=== PATIENT | female | born 1940 | race Caucasian/White ===

== ENCOUNTER 2021-03-25 10:38 | Emergency (ER) | payer MEDICARE, SELFPAY ==
[2021-03-25 10:53] VITALS: BP 122/72; PULSE 88; RESP 18; TEMP 36.6; O2SAT 96; BMI 25.0
--- NOTE | 2021-03-25 10:57 | ED.GENADULT ---
HPI - General Adult General Chief complaint: Weakness Stated complaint: dizzy/lightheaded Time Seen by Provider: 03/25/21 10:54 Source: patient and EMS Mode of arrival: EMS Limitations: no limitations History of Present Illness HPI narrative: bleeding varicose vein after scratching it - no AC therapy no ASA MD complaint: varicose vein bleed after scratching it sig bleeding then felt weak Onset (ago): minute(s) Location: left and lower extremity Radiation: non-radiation Severity: moderate Relieving factors: none Exacerbating factors: other (bleeding varicose vein) Associated symptoms: weakness (but feels better) Treatments prior to arrival: other (bandage) Related Data Allergies Allergy/AdvReac Type Severity Reaction Status Date / Time Unable to Assess Allergy Verified 03/25/21 10:54 Review of Systems Review of Systems: Constitutional : No Weight loss, No Fever, No Chills, No Fatigue, No Malaise ENT/Mouth : No sore throat, No Rhinorrhea Eyes: No Eye Pain, No Swelling, No Redness Cardiovascular : No Chest Pain, No SOB, No Dyspnea on Exertion, No Orthopnea, No Edema, No Palpitations Respiratory : No Cough, No Sputum, No Wheezing Gastrointestinal : No Nausea, No Vomiting, No Diarrhea, No Constipation, No abdominal Pain, No Hematochezia, No Melena Genitourinary : No Dysuria, No Urinary Frequency, No Hematuria, Musculoskeletal : No joint pain, No Myalgias, No Joint Swelling Skin : pos Skin Lesions, No rash Neuro : pos Weakness, No Numbness, No Dizziness, No Headache Psych : No Anxiety/Panic, No Depression Heme/Lymph: No Bruising, No Bleeding,No Lymphadenopathy Endocrine : No Polyuria, No Polydipsia All other systems reviewed and are negative [facility] Past Medical History Attestation statement: The following information was validated with the patient. Medical History Chronic back pain HTN (hypertension) Social History Social History Housing: House Patient Tobacco Use Status: Never used Tobacco Advance Directives: Yes Advance Directives Information Provided: No Advance Directives on File: No Physical Exam Vital Signs: Vital Signs: Last Vital Signs Temp 98 F 03/25/21 10:53 Pulse 88 03/25/21 10:53 Resp 18 03/25/21 10:53 BP 122/72 03/25/21 10:53 Pulse Ox 96 03/25/21 10:53 Body Mass Index 25.0 Appearance: Alert. Oriented X3. No acute distress. Eyes: Pupils equal, round and reactive to light. ENT: Pharynx normal. Neck: Normal inspection. Neck supple. CVS: Normal heart rate and rhythm. Pulses normal. Respiratory: No respiratory distress. Breath sounds normal. Abdomen: Soft and nontender. Skin: Skin warm and dry. Normal skin color. Normal skin turgor. Extremities: No lower extremity edema. L inner calf small dark clot noted medial calf - distal NV intact, no further bleeding no underlying hematoma felt - compartments are soft and compressible Neuro: Oriented X 3. No motor deficit. No sensory deficit. Course Course Course Narrative: [place] in H[place] [facility] [place] baseline hemogoblin 11.7 will transfuse 1 UPRBC signed out pending transfusion but anticipate DC home Medical Decision Making [facility] Narrative Medical decision making narrative: 80 yo female with hx of L varicose vein post bleeding after scratching it - no further bleeding distal NV intact, no AC therapy, at this time will observe obtain labs and repeat CBC as she felt weak after - feels much better now that she has been sitting and is able to drink juice. Dispo per results and findings. Lab Data Result diagrams: 03/25/21 13:56 03/25/21 11:11 Labs: Lab Results 03/25/21 03/25/21 03/25/21 Range/Units 11:11 11:11 13:56 WBC 6.1 7.4 (4.8-10.8) X10*3/uL RBC 2.81 L 2.70 L (4.20-5.50) X10*6/uL Hgb 9.2 L 8.7 L (12.0-16.0) g/dl Hct 27.2 L 25.7 L (37-47) % MCV 96.8 95.2 (80-98) fL MCH 32.7 32.2 (27.0-33.0) pg MCHC 33.8 33.9 (31.0-35.0) g/dl RDW 12.5 12.4 (11.0-16.0) % Plt Count 203 141 L D (160-400) X10*3/uL MPV 9.4 9.2 L (9.4-12.3) fL Immature Gran % (Auto) 0.3 (0.0-0.4) % Neut % (Auto) 76.1 H (45-73) % Lymph % (Auto) 13.6 L (20-40) % Morris % (Auto) 7.2 (2-11) % Eos % (Auto) 2.1 (0-4) % Baso % (Auto) 0.7 (0-2) % Lymph # (Auto) 0.8 L (1.2-4.9) X10*3/uL Morris # (Auto) 0.4 (0.1-1.2) X10*3/uL Eos # (Auto) 0.1 (0.0-0.4) X10*3/uL Baso # (Auto) 0.0 (0.0-0.2) X10*3/uL Abs Immat Gran (auto) 0.02 (0.00-0.03) X10*3/uL Absolute Neuts (auto) 4.7 (2.0-8.3) X10*3/uL Absolute Nucleated RBC 0.000 0.000 (0.0-0.012) X10*3/uL Nucleated RBC % (auto) 0.0 0.0 (0.0-0.2) /100WBC Smear Tech's Comments VERIFIED Sodium 133 L (135-145) mmol/L Potassium 3.8 (3.3-5.1) mmol/L Chloride 101 (96-108) mmol/L Carbon Dioxide 26 (22-29) mmol/L Anion Gap 10 L (12-20) BUN 16 (9-16) mg/dL Creatinine 0.63 (0.5-1.4) mg/dL Estim Creat Clear Calc 65.1 Estimated GFR > 60 Random Glucose 142 H (60-115) mg/dL Calcium 8.5 (8.4-10.2) mg/dL Discharge Plan Discharge Clinical Impression: Anemia, Bleeding from varicose vein Patient Disposition: Home, Self-Care Instructions: Anemia (ED), Blood Transfusion (DC) Additional Instructions: return to ED for any worsening symptoms or concerns change dressing daily, do not pick or scratch, keep covered and protected for 10 days Referrals: Thelma Obrien PA [Primary Care Provider] - 2 days (recheck cbc)
[2021-03-25 11:25] LABS: Eosinophils Absolute Auto 0.1 X10*3/uL (0.0-0.4); Eosinophils Percent Auto 2.1 % (0-4); MANUAL DIFF FLAG SCAN; Mean Corpuscular HGB Conc 33.8 g/dl (31.0-35.0); PLT CLUMP 1; Red Cell Distribution Width 12.5 % (11.0-16.0); SCAN SMEAR FLAG 1
[2021-03-25 11:27] LABS: Basophils Percent Auto 0.7 % (0-2); Hematocrit 27.2 % (37-47); Hemoglobin 9.2 g/dl (12.0-16.0); Imm Gran Abs Auto 0.02 X10*3/uL (0.00-0.03); Imm Gran Pct Auto 0.3 % (0.0-0.4); Lymphocytes Absolute Auto 0.8 X10*3/uL (1.2-4.9); Lymphocytes Percent Auto 13.6 % (20-40); Mean Corpuscular Hemoglobin 32.7 pg (27.0-33.0); Mean Corpuscular Volume 96.8 fL (80-98); Mean Platelet Volume 9.4 fL (9.4-12.3); Monocytes Absolute Auto 0.4 X10*3/uL (0.1-1.2); Monocytes Percent Auto 7.2 % (2-11); Neutrophils Absolute Auto 4.7 X10*3/uL (2.0-8.3); Neutrophils Percent Auto 76.1 % (45-73); Platelet Count 203 X10*3/uL (160-400); Red Blood Count 2.81 X10*6/uL (4.20-5.50); White Blood Count 6.1 X10*3/uL (4.8-10.8)
[2021-03-25 11:43] LABS: Anion Gap 10 (12-20); Blood Urea Nitrogen 16 mg/dL (9-16); Calcium 8.5 mg/dL (8.4-10.2); Carbon Dioxide 26 mmol/L (22-29); Chloride 101 mmol/L (96-108); Creatinine Clr Calc Pharmacy 65.1; Estimated Glomerular Filt Rate > 60; Glucose Random 142 mg/dL (60-115); Potassium 3.8 mmol/L (3.3-5.1); Sodium 133 mmol/L (135-145)
[2021-03-25 11:48] LABS: SLIDE REVIEW VERIFIED
[2021-03-25 14:01] LABS: Hematocrit 25.7 % (37-47); Hemoglobin 8.7 g/dl (12.0-16.0); Mean Corpuscular HGB Conc 33.9 g/dl (31.0-35.0); Mean Corpuscular Hemoglobin 32.2 pg (27.0-33.0); Mean Corpuscular Volume 95.2 fL (80-98); Mean Platelet Volume 9.2 fL (9.4-12.3); Platelet Count 141 X10*3/uL (160-400); Red Cell Distribution Width 12.4 % (11.0-16.0); White Blood Count 7.4 X10*3/uL (4.8-10.8)
[2021-03-25 15:12] VITALS: BP 156/61; PULSE 73; RESP 16; TEMP 36.6; O2SAT 99
[2021-03-25 16:48] VITALS: BP 146/52; PULSE 70; RESP 16; TEMP 36.6
[2021-03-25 16:53] VITALS: BP 146/52; PULSE 70; RESP 16; TEMP 36.6; O2SAT 100
[2021-03-25 17:04] VITALS: BP 135/55; PULSE 65; RESP 16; TEMP 36.6
[2021-03-25 18:25] VITALS: BP 142/66; PULSE 66; RESP 16; TEMP 36.6
== END 2021-03-25 18:28 | disposition home or self-care (01) ==
PROVIDERS: Emergency Provider Emergency Medicine; PCP Physician Assistant Medical
DX: R42 Dizziness and giddiness (principal); D64.9 Anemia, unspecified; I10 Essential (primary) hypertension; Z79.899 Other long term (current) drug therapy
CPT/HCPCS: 36415; 36430; 80048; 85025; 85027; 86850; 86900; 86901; 86923; 99284; 99285; P9016

== ENCOUNTER 2022-01-18 10:49 | Emergency (ER) | payer MEDICARE, SELFPAY ==
--- NOTE | ~2022-01-18 | CT_ITS ---
EXAMINATION: HEAD CT WITHOUT CONTRAST CERVICAL SPINE CT WITHOUT CONTRAST CLINICAL INFORMATION: Unwitnessed fall COMPARISON: None. TECHNIQUE: Contiguous axial imaging of the head was performed without the administration of IV contrast. Axial multidetector volumetric images were also performed through the cervical spine without contrast. Multiplanar reconstructed images in coronal and sagittal orientations were submitted. DOSE: 1027 mGy-cm FINDINGS: HEAD: There is no evidence of acute intracranial hemorrhage or edematous territorial infarction. No abnormal mass-effect or midline shift. No extra-axial fluid collections. Cruz to white matter differentiation is well preserved. Commensurate prominence of the ventricles and sulci is compatible with generalized parenchymal volume loss. There is periventricular and subcortical white matter hypoattenuation, most likely representing microangiopathic disease . Bilateral lens extraction. No acute calvarial fracture. The sinuses and mastoid air cells are clear. CERVICAL SPINE: Motion artifact degrading the upper spinal images. Craniocervical and atlantoaxial alignment is maintained. Vertebral body alignment is otherwise maintained. Instrumented ACDF hardware at C6-7. No evidence of hardware failure or all-hardware fracture. Partially imaged posterior spinal hardware at the cervical thoracic junction with metallic artifact. Vertebral body heights are maintained. No acute fractures identified. Cervical spondylosis, more prominent changes of moderate to severe disc degeneration at C4-5, C5-6, and T1-2, T2-3. Multilevel facet degeneration. No significant prevertebral soft tissue swelling. No suspicious thyroid findings. Lung apices are clear. CT/CT cervical spine wo con IMPRESSION: 1. No CT evidence of acute intracranial hemorrhage or edematous territorial infarction. 2. No CT evidence of acute fracture or malalignment in the cervical spine. 3. Status post ACDF at C6-7. Multilevel cervical spondyloarthropathy.
--- NOTE | 2022-01-18 10:58 | ED.FALL ---
HPI - Fall General Chief Complaint: Fall <LUIS A Muñoz Last Filed: 01/18/22 17:14> Stated Complaint: FALL,LLL SKIN TEAR PER EMS <LUIS A Muñoz - Last Filed: 01/18/22 17:14> Time Seen by Provider: 01/18/22 10:58 <LUIS A Muñoz - Last Filed: 01/18/22 17:14> Source: patient, EMS and old records reviewed <LUIS A Muñoz Last Filed: 01/18/22 17:14> Mode of arrival: EMS <LUIS A Muñoz Last Filed: 01/18/22 17:14> Limitations: no limitations <LUIS A Muñoz Last Filed: 01/18/22 17:14> History of Present Illness HPI Narrative: 9-year-old female with history of dementia presents to the ER for evaluation of a large skin tear in her left lower extremity after an unwitnessed fall at home. She is unsure what happened and is unable to tell me. She does state that she had the back of her head. She denies losing consciousness. She denies being on anticoagulation. She sustained a large skin tear to left lower extremity, no active bleeding on arrival. No other injuries. A few hours after patient's arrival to the ER her caregiver Meena presented to the ER in provided additional information. Meena states that family tried to call the patient this morning and there was no answer for a few hours. Her family detox her several times throughout the day on the phone. Meena went to go check on the patient and she was found on the floor with blood pooling around her left lower extremity wound. EMS was called. It is unknown when the patient fell down. <LUIS A Muñoz Last Filed: 01/18/22 17:14> MD complaint: fall <LUIS A Muñoz Last Filed: 01/18/22 17:14> Onset (ago): minute(s) <LUIS A Muñoz Last Filed: 01/18/22 17:14> Fall from: standing <LUIS A Muñoz Last Filed: 01/18/22 17:14> Fall witnessed: no <LUIS A Muñoz Last Filed: 01/18/22 17:14> Place fall occurred: home <LUIS A Muñoz - Last Filed: 01/18/22 17:14> Loss of consciousness: none <LUIS A Muñoz - Last Filed: 01/18/22 17:14> Prolonged down time: no <LUIS A Muñoz - Last Filed: 01/18/22 17:14> Symptoms prior to fall: none <LUIS A Muñoz - Last Filed: 01/18/22 17:14> Location of injury: head <LUIS A Muñoz - Last Filed: 01/18/22 17:14> Location of injury - extremities: left: lower leg (Large anterior skin tear) <LUIS A Muñoz - Last Filed: 01/18/22 17:14> Severity: moderate <LUIS A Muñoz - Last Filed: 01/18/22 17:14> Quality: aching <LUIS A Muñoz - Last Filed: 01/18/22 17:14> Associated symptoms (after fall): denies <LUIS A Muñoz - Last Filed: 01/18/22 17:14> Related Data Allergies/Adverse Reactions: Allergies Allergy/AdvReac Type Severity Reaction Status Date / Time Unable to Assess Allergy Verified 03/25/21 10:54 <LUIS A Muñoz - Last Filed: 01/18/22 17:14> Review of Systems Review of Systems: Constitutional: No Fever, No Chills ENT/Mouth: No sore throat, No Rhinorrhea, No Swallowing Difficulty Cardiovascular: No Chest Pain, No SOB, No Orthopnea, No Edema Respiratory: No Cough, No Sputum, No Wheezing, No dyspnea Gastrointestinal: No Nausea, No Vomiting, No Diarrhea, No abdominal Pain Genitourinary: No Dysuria, No Urinary Frequency, No Hematuria Musculoskeletal: No joint pain, No Myalgias Skin: + Skin Lesions, No rash Neuro: No Weakness, No Numbness, No Dizziness, No Headache Psych: No Anxiety/Panic, No Depression Heme/Lymph: + Bruising, No Lymphadenopathy Endocrine: No Polyuria, No Polydipsia <LUIS A Muñoz Last Filed: 01/18/22 17:14> [facility] Past Medical History Medical History: Medical History Chronic back pain HTN (hypertension) <LUIS A Muñoz - Last Filed: 01/18/22 17:14> Social History Social History: Social History Housing: House Patient Tobacco Use Status: Never used Tobacco Advance Directives: No Advance Directives Information Provided: Yes <LUIS A Muñoz - Last Filed: 01/18/22 17:14> Physical Exam Vital Signs: Vital Signs: Last Vital Signs Temp 97.9 F 01/18/22 20:38 Pulse 77 01/18/22 23:09 Resp 18 01/18/22 23:09 BP 124/48 L 01/18/22 23:09 Pulse Ox 98 01/18/22 23:09 O2 Del Method 01/18/22 23:09 BMI result Body Mass Index 22.1 <LUIS A Muñoz - Last Filed: 01/18/22 17:14> Vital Signs: Last Vital Signs Temp 97.9 F 01/18/22 20:38 Pulse 77 01/18/22 23:09 Resp 18 01/18/22 23:09 BP 124/48 L 01/18/22 23:09 Pulse Ox 98 01/18/22 23:09 O2 Del Method 01/18/22 23:09 BMI result Body Mass Index 22.1 <LUIS A Mcmillan - Last Filed: 01/18/22 23:57> Appearance: Alert. Oriented X1. No acute distress. Head: atraumatic, in cervical collar Eyes: Pupils equal, round and reactive to light. ENT: Pharynx normal. Neck: Normal inspection. Neck supple. CVS: Normal heart rate and rhythm. Pulses normal. Respiratory: No respiratory distress. Breath sounds normal. Abdomen: Soft and nontender. +BS x4 Skin: Skin warm and dry. Normal skin color. Normal skin turgor. No rashes. Extremities: left lower extremity with large anterior superficial skin tear starting below the left knee and extending down the anterior quintero Neuro: Oriented X 1. <LUIS A Muñoz - Last Filed: 01/18/22 17:14> Course Course Course Narrative: 81-year-old female with a history of dementia who presents to the ER after an unwitnessed fall at home, sustaining a large skin tear to left lower extremity. Unknown down time. Will get metabolic workup, CPK, COVID swab. Anticipate she will require short-term rehab placement given her injury and overall declining dementia. Not safe for discharge home alone. <LUIS A Muñoz Last Filed: 01/18/22 17:14> Reevaluation(s) Reevaluation #1: Labs are consistent with mild rhabdomyolysis, CK 600 range. She is tolerating p.o.. Will gently hydrate with 1 L of IV fluids. Labs otherwise unremarkable. At this time we will place patient physician observation and plan for physical therapy evaluation for possible short-term rehab. She lives at home and has caregivers coming to the home. She has underlying dementia and recognizes that this is getting worse. Physician observation started at 16:30. Patient placed in physician observation because patient is awaiting PT evaluation and Case management consult for possible placement to [facility]. At the time observation was started patient's vital signs were stable. Patient is alert and oriented x2. Neuro exam is non-focal. CV: RRR and lungs are clear. Will continue to monitor. <LUIS A Muñoz Last Filed: 01/18/22 17:14> Reevaluation #2: Patient's plan is to go to short-term rehab and then assisted living at the [facility] <LUIS A Mcmillan - Last Filed: 01/18/22 23:57> Time: 23:57 <LUIS A Mcmillan - Last Filed: 01/18/22 23:57> Procedures Laceration Laceration 1: Site: lower extremity <LUIS A Muñoz Last Filed: 01/18/22 17:14> Side (If applicable): left <LUIS A Muñoz Last Filed: 01/18/22 17:14> Size (cm): 20 <LUIS A Muñoz Last Filed: 01/18/22 17:14> Description: flap and irregular <LUIS A Muñoz Last Filed: 01/18/22 17:14> Depth: involves muscle layer (Visible subcu tissue proximally) <LUIS A Muñoz Last Filed: 01/18/22 17:14> Pre-repair: wound explored, irrigated extensively, deep structures intact and wound margins revised <LUIS A Muñoz - Last Filed: 01/18/22 17:14> Skin layer closed with: other (Skin tear flap rolled out carefully using sterile water in Q-tips, replaced over the bed of the wound.) <LUIS A Muñoz - Last Filed: 01/18/22 17:14> MDM - Fall Medical Records Attestation: I reviewed the patient's medical records. <LUIS A Muñoz - Last Filed: 01/18/22 17:14> Lab Data Attestation: I reviewed the patient's lab results. <LUIS A Muñoz - Last Filed: 01/18/22 17:14> Result diagrams: : 01/18/22 12:21 01/18/22 12:21 <LUIS A Muñoz - Last Filed: 01/18/22 17:14> Labs: Lab Results 01/18/22 01/18/22 01/18/22 Range/Units 12:21 12:21 12:21 WBC 8.0 (4.8-10.8) X10*3/uL RBC 3.01 L (4.20-5.50) X10*6/uL Hgb 9.8 L (12.0-16.0) g/dl Hct 28.5 L (37.0-47.0) % MCV 94.7 (80.0-98.0) fL MCH 32.6 (27.0-33.0) pg MCHC 34.4 (31.0-35.0) g/dl RDW 12.7 (11.0-16.0) % Plt Count 183 (160-400) X10*3/uL MPV 8.4 L (9.4-12.3) fL Immature Gran % (Auto) 0.3 (0.0-0.4) % Neut % (Auto) 77.6 H (45-73) % Lymph % (Auto) 11.9 L (20-40) % [place] % (Auto) 9.6 (2-11) % Eos % (Auto) 0.3 (0-4) % Baso % (Auto) 0.3 (0-2) % Lymph # (Auto) 1.0 L (1.2-4.9) X10*3/uL [place] # (Auto) 0.8 (0.1-1.2) X10*3/uL Eos # (Auto) 0.0 (0.0-0.4) X10*3/uL Baso # (Auto) 0.0 (0.0-0.2) X10*3/uL Abs Immat Gran (auto) 0.02 (0.00-0.03) X10*3/uL Absolute Neuts (auto) 6.2 (2.0-8.3) x10*3/uL Absolute Nucleated RBC 0.000 (0.0-0.012) X10*3/uL Nucleated RBC % (auto) 0.0 (0.0-0.2) /100WBC PT 11.2 (10.0-13.1) SEC INR 1.0 (0.9-1.1) APTT 28.5 (24.1-38.0) SEC Sodium 130 L (135-145) mmol/L Potassium 4.2 (3.3-5.1) mmol/L Chloride 99 (96-108) mmol/L Carbon Dioxide 26 (22-29) mmol/L Anion Gap 9 L (12-20) BUN 14 (9-16) mg/dL Creatinine 0.64 (0.5-1.4) mg/dL Estim Creat Clear Calc 60.5 Estimated GFR > 60 Random Glucose 100 (60-115) mg/dL Calcium 8.4 (8.4-10.2) mg/dL Magnesium 1.9 (1.6-2.6) mg/dL Total Bilirubin 0.6 (0.0-1.0) mg/dL Direct Bilirubin 0.3 (0.0-0.5) mg/dL AST 32 H (5-31) U/L ALT 23 (0-31) U/L Alkaline Phosphatase 56 (39-117) U/L Total Creatine Kinase 556 H (26-140) U/L Troponin I High Sens (<3.5-17.0) ng/L Total Protein 5.3 L (6.5-8.0) g/dL Albumin 3.6 (3.5-5.0) g/dL Urine Color Urine Appearance Urine pH (5.0-8.0) Ur Specific [place] (1.005-1.025) Urine Protein (NEG-TRACE) MG/DL Urine Glucose (UA) (NEG) MG/DL Urine Ketones (NEG) MG/DL Urine Blood (NEG) Urine Nitrite (NEG) Ur Leukocyte Esterase (NEG) Urine RBC (0) /HPF Urine WBC (0-4) /HPF Ur Squamous Epith Cells /LPF Urine Bacteria /LPF COVID-19 (TALIB) (Negative) COVID-19 Clin Com 01/18/22 01/18/22 01/18/22 Range/Units 12:21 12:21 12:21 WBC (4.8-10.8) X10*3/uL RBC (4.20-5.50) X10*6/uL Hgb (12.0-16.0) g/dl Hct (37.0-47.0) % MCV (80.0-98.0) fL MCH (27.0-33.0) pg MCHC (31.0-35.0) g/dl RDW (11.0-16.0) % Plt Count (160-400) X10*3/uL MPV (9.4-12.3) fL Immature Gran % (Auto) (0.0-0.4) % Neut % (Auto) (45-73) % Lymph % (Auto) (20-40) % [place] % (Auto) (2-11) % Eos % (Auto) (0-4) % Baso % (Auto) (0-2) % Lymph # (Auto) (1.2-4.9) X10*3/uL [place] # (Auto) (0.1-1.2) X10*3/uL Eos # (Auto) (0.0-0.4) X10*3/uL Baso # (Auto) (0.0-0.2) X10*3/uL Abs Immat Gran (auto) (0.00-0.03) X10*3/uL Absolute Neuts (auto) (2.0-8.3) x10*3/uL Absolute Nucleated RBC (0.0-0.012) X10*3/uL Nucleated RBC % (auto) (0.0-0.2) /100WBC PT (10.0-13.1) SEC INR (0.9-1.1) APTT (24.1-38.0) SEC Sodium (135-145) mmol/L Potassium (3.3-5.1) mmol/L Chloride (96-108) mmol/L Carbon Dioxide (22-29) mmol/L Anion Gap (12-20) BUN (9-16) mg/dL Creatinine (0.5-1.4) mg/dL Estim Creat Clear Calc Estimated GFR Random Glucose (60-115) mg/dL Calcium (8.4-10.2) mg/dL Magnesium (1.6-2.6) mg/dL Total Bilirubin (0.0-1.0) mg/dL Direct Bilirubin (0.0-0.5) mg/dL AST (5-31) U/L ALT (0-31) U/L Alkaline Phosphatase (39-117) U/L Total Creatine Kinase (26-140) U/L Troponin I High Sens 64.3 H* (<3.5-17.0) ng/L Total Protein (6.5-8.0) g/dL Albumin (3.5-5.0) g/dL Urine Color DK YELLOW Urine Appearance CLEAR Urine pH 7.5 (5.0-8.0) Ur Specific [place] 1.020 (1.005-1.025) Urine Protein TRACE (NEG-TRACE) MG/DL Urine Glucose (UA) NEG (NEG) MG/DL Urine Ketones NEG (NEG) MG/DL Urine Blood NEG (NEG) Urine Nitrite SEE NOTE (NEG) Ur Leukocyte Esterase SEE NOTE (NEG) Urine RBC 1-4 (0) /HPF Urine WBC 0-2 (0-4) /HPF Ur Squamous Epith Cells TRACE /LPF Urine Bacteria TRACE /LPF COVID-19 (TALIB) Negative (Negative) COVID-19 Clin Com See Note 01/18/22 01/18/22 Range/Units 15:47 15:47 WBC (4.8-10.8) X10*3/uL RBC (4.20-5.50) X10*6/uL Hgb (12.0-16.0) g/dl Hct (37.0-47.0) % MCV (80.0-98.0) fL MCH (27.0-33.0) pg MCHC (31.0-35.0) g/dl RDW (11.0-16.0) % Plt Count (160-400) X10*3/uL MPV (9.4-12.3) fL Immature Gran % (Auto) (0.0-0.4) % Neut % (Auto) (45-73) % Lymph % (Auto) (20-40) % [place] % (Auto) (2-11) % Eos % (Auto) (0-4) % Baso % (Auto) (0-2) % Lymph # (Auto) (1.2-4.9) X10*3/uL [place] # (Auto) (0.1-1.2) X10*3/uL Eos # (Auto) (0.0-0.4) X10*3/uL Baso # (Auto) (0.0-0.2) X10*3/uL Abs Immat Gran (auto) (0.00-0.03) X10*3/uL Absolute Neuts (auto) (2.0-8.3) x10*3/uL Absolute Nucleated RBC (0.0-0.012) X10*3/uL Nucleated RBC % (auto) (0.0-0.2) /100WBC PT (10.0-13.1) SEC INR (0.9-1.1) APTT (24.1-38.0) SEC Sodium (135-145) mmol/L Potassium (3.3-5.1) mmol/L Chloride (96-108) mmol/L Carbon Dioxide (22-29) mmol/L Anion Gap (12-20) BUN (9-16) mg/dL Creatinine (0.5-1.4) mg/dL Estim Creat Clear Calc Estimated GFR Random Glucose (60-115) mg/dL Calcium (8.4-10.2) mg/dL Magnesium (1.6-2.6) mg/dL Total Bilirubin (0.0-1.0) mg/dL Direct Bilirubin (0.0-0.5) mg/dL AST (5-31) U/L ALT (0-31) U/L Alkaline Phosphatase (39-117) U/L Total Creatine Kinase 631 H (26-140) U/L Troponin I High Sens 63.6 H* (<3.5-17.0) ng/L Total Protein (6.5-8.0) g/dL Albumin (3.5-5.0) g/dL Urine Color Urine Appearance Urine pH (5.0-8.0) Ur Specific [place] (1.005-1.025) Urine Protein (NEG-TRACE) MG/DL Urine Glucose (UA) (NEG) MG/DL Urine Ketones (NEG) MG/DL Urine Blood (NEG) Urine Nitrite (NEG) Ur Leukocyte Esterase (NEG) Urine RBC (0) /HPF Urine WBC (0-4) /HPF Ur Squamous Epith Cells /LPF Urine Bacteria /LPF COVID-19 (TALIB) (Negative) COVID-19 Clin Com <LUIS A Muñoz - Last Filed: 01/18/22 17:14> Lab Results 01/18/22 01/18/22 01/18/22 Range/Units 12:21 12:21 12:21 WBC 8.0 (4.8-10.8) X10*3/uL RBC 3.01 L (4.20-5.50) X10*6/uL Hgb 9.8 L (12.0-16.0) g/dl Hct 28.5 L (37.0-47.0) % MCV 94.7 (80.0-98.0) fL MCH 32.6 (27.0-33.0) pg MCHC 34.4 (31.0-35.0) g/dl RDW 12.7 (11.0-16.0) % Plt Count 183 (160-400) X10*3/uL MPV 8.4 L (9.4-12.3) fL Immature Gran % (Auto) 0.3 (0.0-0.4) % Neut % (Auto) 77.6 H (45-73) % Lymph % (Auto) 11.9 L (20-40) % [place] % (Auto) 9.6 (2-11) % Eos % (Auto) 0.3 (0-4) % Baso % (Auto) 0.3 (0-2) % Lymph # (Auto) 1.0 L (1.2-4.9) X10*3/uL [place] # (Auto) 0.8 (0.1-1.2) X10*3/uL Eos # (Auto) 0.0 (0.0-0.4) X10*3/uL Baso # (Auto) 0.0 (0.0-0.2) X10*3/uL Abs Immat Gran (auto) 0.02 (0.00-0.03) X10*3/uL Absolute Neuts (auto) 6.2 (2.0-8.3) x10*3/uL Absolute Nucleated RBC 0.000 (0.0-0.012) X10*3/uL Nucleated RBC % (auto) 0.0 (0.0-0.2) /100WBC PT 11.2 (10.0-13.1) SEC INR 1.0 (0.9-1.1) APTT 28.5 (24.1-38.0) SEC Sodium 130 L (135-145) mmol/L Potassium 4.2 (3.3-5.1) mmol/L Chloride 99 (96-108) mmol/L Carbon Dioxide 26 (22-29) mmol/L Anion Gap 9 L (12-20) BUN 14 (9-16) mg/dL Creatinine 0.64 (0.5-1.4) mg/dL Estim Creat Clear Calc 60.5 Estimated GFR > 60 Random Glucose 100 (60-115) mg/dL Calcium 8.4 (8.4-10.2) mg/dL Magnesium 1.9 (1.6-2.6) mg/dL Total Bilirubin 0.6 (0.0-1.0) mg/dL Direct Bilirubin 0.3 (0.0-0.5) mg/dL AST 32 H (5-31) U/L ALT 23 (0-31) U/L Alkaline Phosphatase 56 (39-117) U/L Total Creatine Kinase 556 H (26-140) U/L Troponin I High Sens (<3.5-17.0) ng/L Total Protein 5.3 L (6.5-8.0) g/dL Albumin 3.6 (3.5-5.0) g/dL Urine Color Urine Appearance Urine pH (5.0-8.0) Ur Specific [place] (1.005-1.025) Urine Protein (NEG-TRACE) MG/DL Urine Glucose (UA) (NEG) MG/DL Urine Ketones (NEG) MG/DL Urine Blood (NEG) Urine Nitrite (NEG) Ur Leukocyte Esterase (NEG) Urine RBC (0) /HPF Urine WBC (0-4) /HPF Ur Squamous Epith Cells /LPF Urine Bacteria /LPF COVID-19 (TALIB) (Negative) COVID-19 Clin Com 01/18/22 01/18/22 01/18/22 Range/Units 12:21 12:21 12:21 WBC (4.8-10.8) X10*3/uL RBC (4.20-5.50) X10*6/uL Hgb (12.0-16.0) g/dl Hct (37.0-47.0) % MCV (80.0-98.0) fL MCH (27.0-33.0) pg MCHC (31.0-35.0) g/dl RDW (11.0-16.0) % Plt Count (160-400) X10*3/uL MPV (9.4-12.3) fL Immature Gran % (Auto) (0.0-0.4) % Neut % (Auto) (45-73) % Lymph % (Auto) (20-40) % [place] % (Auto) (2-11) % Eos % (Auto) (0-4) % Baso % (Auto) (0-2) % Lymph # (Auto) (1.2-4.9) X10*3/uL [place] # (Auto) (0.1-1.2) X10*3/uL Eos # (Auto) (0.0-0.4) X10*3/uL Baso # (Auto) (0.0-0.2) X10*3/uL Abs Immat Gran (auto) (0.00-0.03) X10*3/uL Absolute Neuts (auto) (2.0-8.3) x10*3/uL Absolute Nucleated RBC (0.0-0.012) X10*3/uL Nucleated RBC % (auto) (0.0-0.2) /100WBC PT (10.0-13.1) SEC INR (0.9-1.1) APTT (24.1-38.0) SEC Sodium (135-145) mmol/L Potassium (3.3-5.1) mmol/L Chloride (96-108) mmol/L Carbon Dioxide (22-29) mmol/L Anion Gap (12-20) BUN (9-16) mg/dL Creatinine (0.5-1.4) mg/dL Estim Creat Clear Calc Estimated GFR Random Glucose (60-115) mg/dL Calcium (8.4-10.2) mg/dL Magnesium (1.6-2.6) mg/dL Total Bilirubin (0.0-1.0) mg/dL Direct Bilirubin (0.0-0.5) mg/dL AST (5-31) U/L ALT (0-31) U/L Alkaline Phosphatase (39-117) U/L Total Creatine Kinase (26-140) U/L Troponin I High Sens 64.3 H* (<3.5-17.0) ng/L Total Protein (6.5-8.0) g/dL Albumin (3.5-5.0) g/dL Urine Color DK YELLOW Urine Appearance CLEAR Urine pH 7.5 (5.0-8.0) Ur Specific [place] 1.020 (1.005-1.025) Urine Protein TRACE (NEG-TRACE) MG/DL Urine Glucose (UA) NEG (NEG) MG/DL Urine Ketones NEG (NEG) MG/DL Urine Blood NEG (NEG) Urine Nitrite SEE NOTE (NEG) Ur Leukocyte Esterase SEE NOTE (NEG) Urine RBC 1-4 (0) /HPF Urine WBC 0-2 (0-4) /HPF Ur Squamous Epith Cells TRACE /LPF Urine Bacteria TRACE /LPF COVID-19 (TALIB) Negative (Negative) COVID-19 Clin Com See Note 01/18/22 01/18/22 Range/Units 15:47 15:47 WBC (4.8-10.8) X10*3/uL RBC (4.20-5.50) X10*6/uL Hgb (12.0-16.0) g/dl Hct (37.0-47.0) % MCV (80.0-98.0) fL MCH (27.0-33.0) pg MCHC (31.0-35.0) g/dl RDW (11.0-16.0) % Plt Count (160-400) X10*3/uL MPV (9.4-12.3) fL Immature Gran % (Auto) (0.0-0.4) % Neut % (Auto) (45-73) % Lymph % (Auto) (20-40) % [place] % (Auto) (2-11) % Eos % (Auto) (0-4) % Baso % (Auto) (0-2) % Lymph # (Auto) (1.2-4.9) X10*3/uL [place] # (Auto) (0.1-1.2) X10*3/uL Eos # (Auto) (0.0-0.4) X10*3/uL Baso # (Auto) (0.0-0.2) X10*3/uL Abs Immat Gran (auto) (0.00-0.03) X10*3/uL Absolute Neuts (auto) (2.0-8.3) x10*3/uL Absolute Nucleated RBC (0.0-0.012) X10*3/uL Nucleated RBC % (auto) (0.0-0.2) /100WBC PT (10.0-13.1) SEC INR (0.9-1.1) APTT (24.1-38.0) SEC Sodium (135-145) mmol/L Potassium (3.3-5.1) mmol/L Chloride (96-108) mmol/L Carbon Dioxide (22-29) mmol/L Anion Gap (12-20) BUN (9-16) mg/dL Creatinine (0.5-1.4) mg/dL Estim Creat Clear Calc Estimated GFR Random Glucose (60-115) mg/dL Calcium (8.4-10.2) mg/dL Magnesium (1.6-2.6) mg/dL Total Bilirubin (0.0-1.0) mg/dL Direct Bilirubin (0.0-0.5) mg/dL AST (5-31) U/L ALT (0-31) U/L Alkaline Phosphatase (39-117) U/L Total Creatine Kinase 631 H (26-140) U/L Troponin I High Sens 63.6 H* (<3.5-17.0) ng/L Total Protein (6.5-8.0) g/dL Albumin (3.5-5.0) g/dL Urine Color Urine Appearance Urine pH (5.0-8.0) Ur Specific [place] (1.005-1.025) Urine Protein (NEG-TRACE) MG/DL Urine Glucose (UA) (NEG) MG/DL Urine Ketones (NEG) MG/DL Urine Blood (NEG) Urine Nitrite (NEG) Ur Leukocyte Esterase (NEG) Urine RBC (0) /HPF Urine WBC (0-4) /HPF Ur Squamous Epith Cells /LPF Urine Bacteria /LPF COVID-19 (TALIB) (Negative) COVID-19 Clin Com <LUIS A Mcmillan - Last Filed: 01/18/22 23:57> Imaging Data CT scan - head: Radiologist's impression: [place] [id number] CT Scan Report Signed Patient: Mackenzie Briones MR#: [id number] : 1940 Acct:[id number] Age/Sex: 81 / F ADM Date: 01/18/22 Loc: HO.ED Attending Dr: Ordering Physician: Lizbeth Tadeo Date of Service: 01/18/22 Procedure(s): CT head/brain wo con Accession Number(s): [id number] cc: Lizbeth Tadeo~ EXAMINATION: HEAD CT WITHOUT CONTRAST CERVICAL SPINE CT WITHOUT CONTRAST CLINICAL INFORMATION: Unwitnessed fall COMPARISON: None. TECHNIQUE: Contiguous axial imaging of the head was performed without the administration of IV contrast. Axial multidetector volumetric images were also performed through the cervical spine without contrast. Multiplanar reconstructed images in coronal and sagittal orientations were submitted. DOSE: 1027 mGy-cm FINDINGS: HEAD: There is no evidence of acute intracranial hemorrhage or edematous territorial infarction. No abnormal mass-effect or midline shift. No extra-axial fluid collections.? Cruz to white matter differentiation is well preserved. Commensurate prominence of the ventricles and sulci is compatible with generalized parenchymal volume loss. There is periventricular and subcortical white matter hypoattenuation, most likely representing microangiopathic disease . Bilateral lens extraction. No acute calvarial fracture. The sinuses and mastoid air cells are clear. CERVICAL SPINE: Motion artifact degrading the upper spinal images. Craniocervical and atlantoaxial alignment is maintained. Vertebral body alignment is otherwise maintained. Instrumented ACDF hardware at C6-7. No evidence of hardware failure or all-hardware fracture. Partially imaged posterior spinal hardware at the cervical thoracic junction with metallic artifact. Vertebral body heights are maintained. No acute fractures identified. Cervical spondylosis, more prominent changes of moderate to severe disc degeneration at C4-5, C5-6, and T1-2, T2-3. Multilevel facet degeneration. No significant prevertebral soft tissue swelling. No suspicious thyroid findings. Lung apices are clear. CT/CT head/brain wo con IMPRESSION: 1. No CT evidence of acute intracranial hemorrhage or edematous territorial infarction. 2. No CT evidence of acute fracture or malalignment in the cervical spine. 3. Status post ACDF at C6-7. Multilevel cervical spondyloarthropathy. Dictated By: Maxwell Turner MD <LUIS A Muñoz - Last Filed: 01/18/22 17:14> CT - Cervical spine: Radiologist's impression: Ordering Physician: Lizbeth Tadeo Date of Service: 01/18/22 Procedure(s): CT cervical spine wo con Accession Number(s): [id number] cc: Lizbeth Tadeo~ EXAMINATION: HEAD CT WITHOUT CONTRAST CERVICAL SPINE CT WITHOUT CONTRAST CLINICAL INFORMATION: Unwitnessed fall COMPARISON: None. TECHNIQUE: Contiguous axial imaging of the head was performed without the administration of IV contrast. Axial multidetector volumetric images were also performed through the cervical spine without contrast. Multiplanar reconstructed images in coronal and sagittal orientations were submitted. DOSE: 1027 mGy-cm FINDINGS: HEAD: There is no evidence of acute intracranial hemorrhage or edematous territorial infarction. No abnormal mass-effect or midline shift. No extra-axial fluid collections.? Cruz to white matter differentiation is well preserved. Commensurate prominence of the ventricles and sulci is compatible with generalized parenchymal volume loss. There is periventricular and subcortical white matter hypoattenuation, most likely representing microangiopathic disease . Bilateral lens extraction. No acute calvarial fracture. The sinuses and mastoid air cells are clear. CERVICAL SPINE: Motion artifact degrading the upper spinal images. Craniocervical and atlantoaxial alignment is maintained. Vertebral body alignment is otherwise maintained. Instrumented ACDF hardware at C6-7. No evidence of hardware failure or all-hardware fracture. Partially imaged posterior spinal hardware at the cervical thoracic junction with metallic artifact. Vertebral body heights are maintained. No acute fractures identified. Cervical spondylosis, more prominent changes of moderate to severe disc degeneration at C4-5, C5-6, and T1-2, T2-3. Multilevel facet degeneration. No significant prevertebral soft tissue swelling. No suspicious thyroid findings. Lung apices are clear. CT/CT cervical spine wo con IMPRESSION: 1. No CT evidence of acute intracranial hemorrhage or edematous territorial infarction. 2. No CT evidence of acute fracture or malalignment in the cervical spine. 3. Status post ACDF at C6-7. Multilevel cervical spondyloarthropathy. Dictated By: Maxwell Turner MD <LUIS A Muñoz - Last Filed: 01/18/22 17:14> Discharge Plan Discharge Clinical Impression: Noninfected skin tear of left leg, Rhabdomyolysis <LUIS A Muñoz - Last Filed: 01/18/22 17:14> Patient Disposition: Still a Patient <LUIS A Muñoz - Last Filed: 01/18/22 17:14> Referrals: [facility] [place] W[facility] Care [Outside] - 2 days (Large left lower extremity skin tear) <LUIS A Muñoz - Last Filed: 01/18/22 17:14>
[2022-01-18 11:14] VITALS: BP 109/70; BP 139/63; PULSE 74; PULSE 81; RESP 18; O2SAT 98; BMI 22.1
--- NOTE | 2022-01-18 11:40 | ECG_ITS ---
Test Reason : fall Blood Pressure : / mmHG Vent. Rate : 070 BPM Atrial Rate : 070 BPM P-R Int : 168 ms QRS Dur : 080 ms QT Int : 400 ms P-R-T Axes : 077 011 039 degrees QTc Int : 432 ms Normal sinus rhythm Normal ECG No previous ECGs available Referred By: Lizbeth Tadeo Electronically Signed By:CHARLEY DENNIS MD
[2022-01-18 12:34] LABS: MANUAL DIFF FLAG NO
[2022-01-18 12:37] LABS: Appearance Urine CLEAR; Basophils Percent Auto 0.3 % (0-2); Color Urine DK YELLOW; Eosinophils Percent Auto 0.3 % (0-4); Glucose Urine UA NEG (NEG); Hematocrit 28.5 % (37.0-47.0); Hemoglobin 9.8 g/dl (12.0-16.0); Imm Gran Abs Auto 0.02 X10*3/uL (0.00-0.03); Imm Gran Pct Auto 0.3 % (0.0-0.4); Lymphocytes Percent Auto 11.9 % (20-40); Mean Corpuscular HGB Conc 34.4 g/dl (31.0-35.0); Mean Corpuscular Hemoglobin 32.6 pg (27.0-33.0); Mean Corpuscular Volume 94.7 fL (80.0-98.0); Mean Platelet Volume 8.4 fL (9.4-12.3); Monocytes Absolute Auto 0.8 X10*3/uL (0.1-1.2); Monocytes Percent Auto 9.6 % (2-11); Neutrophils Absolute Auto 6.2 x10*3/uL (2.0-8.3); Neutrophils Percent Auto 77.6 % (45-73); PH 7.5 (5.0-8.0); Platelet Count 183 X10*3/uL (160-400); Red Blood Count 3.01 X10*6/uL (4.20-5.50); Red Cell Distribution Width 12.7 % (11.0-16.0); UACC Culture Trigger YES; Urine Blood NEG (NEG); Urine Ketones NEG (NEG); Urine Protein TRACE MG/DL (NEG-TRACE)
[2022-01-18 12:43] LABS: Prothrombin Time 11.2 SEC (10.0-13.1)
[2022-01-18 12:45] LABS: Partial Thromboplastin Time 28.5 SEC (24.1-38.0)
[2022-01-18 12:48] LABS: Bacteria Urine TRACE /LPF; Squamous Epithelial Cell Urine TRACE /LPF
[2022-01-18 12:49] LABS: WBC Urine 0-2 /HPF (0-4)
[2022-01-18] MEDS: Acetaminophen 325 MG TABLET 975 MG PO (12:50)
[2022-01-18 12:57] LABS: COVID-19 Test Negative (Negative)
[2022-01-18 13:04] LABS: Alanine Aminotransferase 23 U/L (0-31); Albumin Level 3.6 g/dL (3.5-5.0); Alkaline Phosphatase 56 U/L (39-117); Anion Gap 9 (12-20); Aspartate Amino Transferase 32 U/L (5-31); Bilirubin Direct 0.3 mg/dL (0.0-0.5); Bilirubin Total 0.6 mg/dL (0.0-1.0); Blood Urea Nitrogen 14 mg/dL (9-16); Calcium 8.4 mg/dL (8.4-10.2); Carbon Dioxide 26 mmol/L (22-29); Chloride 99 mmol/L (96-108); Creatinine Clr Calc Pharmacy 60.5; Estimated Glomerular Filt Rate > 60; Glucose Random 100 mg/dL (60-115); Magnesium 1.9 mg/dL (1.6-2.6); Potassium 4.2 mmol/L (3.3-5.1); Sodium 130 mmol/L (135-145); Total Protein 5.3 g/dL (6.5-8.0)
[2022-01-18 13:06] LABS: Troponin-I High Sensitivity 64.3 ng/L (<3.5-17.0)
[2022-01-18 14:55] VITALS: BP 109/70; PULSE 81; O2SAT 98
[2022-01-18 15:42] VITALS: BP 159/61; PULSE 72; RESP 18; TEMP 36.6; O2SAT 97
[2022-01-18 16:32] LABS: Troponin-I High Sensitivity 63.6 ng/L (<3.5-17.0)
[2022-01-18] MEDS: 0.9 % Sodium Chloride 1,000 ML 999 ML IVCONT (18:06)
--- NOTE | 2022-01-18 18:10 | PC.NURSE ---
Pt states she fell out of bed, was found in morning by her friend. unwitnessed, unknown downtime or LOC. C collar placed by EMS. Pt has dementia at baseline. Alert, oriented to person and place at this time. Large skin tear to LLE, cleaned and dressed by Annalisa CARPENTER. Plan for PT eval and CM for possible placement. Call griffith placed within reach, will continue to monitor.
[2022-01-18 19:42] VITALS: BP 156/59; PULSE 96; RESP 16; TEMP 36.5; O2SAT 97
[2022-01-18 20:38] VITALS: BP 136/58; PULSE 74; RESP 16; TEMP 36.6; O2SAT 98
--- NOTE | 2022-01-18 20:58 | PC.NURSE ---
pt assisted with bedpan, pt provided perineal care & linen change
--- NOTE | 2022-01-18 22:46 | MHC.CM.ED ---
Met with patient and daughter, Martha Milton ([phone]). 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 Pt is sl confused, being treated for a UTI and had a fall with large skin tear. Currently on Bactrim BID. Pt has an apartment secured at [facility] for assisted living and was to sign paper tomorrow 01/19. She will have 1 hour [employer] TECH and 3 meals a day. PT is recommending STR. Family and patient are requesting [facility]. Family has a connection with the facility and will call in the morning. Referral placed in [facility]. Pt and daughter are hopeful that [facility] will have a bed and then she will transition to assisted living. Pt is vax/boosted/[employer]. HCP/daughter #1 Socorro Jimenez, but she is in [place] and Martha usually care for her mother, as she is the daughter who lives locally. Martha will bring in the HCP 01/19. Pt uses a walker. CM will follow for d/c needs.
[2022-01-18 23:09] VITALS: BP 124/48; PULSE 77; RESP 18; O2SAT 98
[2022-01-19 00:46] VITALS: RESP 18
[2022-01-19 03:10] VITALS: BP 149/61; PULSE 83; RESP 18; O2SAT 98
--- NOTE | 2022-01-19 03:32 | PC.NURSE ---
pt moved into hospital bed. resting comfortably at this time.
--- NOTE | 2022-01-19 04:26 | PC.NURSE ---
pt transferred over to hospital bed
[2022-01-19 05:15] VITALS: PULSE 85; RESP 18; O2SAT 98
[2022-01-19 05:46] VITALS: BP 152/70; PULSE 75; RESP 18; O2SAT 98
--- NOTE | 2022-01-19 10:08 | MHC.CM.ED ---
Patient remains in ER. [facility] Continue to monitor for d/c needs.
[2022-01-19] MEDS: Metoprolol Succinate ER 25 MG TAB.ER.24H PO (10:17)
[2022-01-19] MEDS: Losartan Potassium 50 MG TABLET 100 MG PO (10:17)
[2022-01-19] MEDS: Sulfamethox/Trimeth 800/160 TABLET 1 TAB PO (10:19)
[2022-01-19 11:12] VITALS: BP 99/48; PULSE 82; RESP 16; TEMP 36.7; O2SAT 98
--- NOTE | 2022-01-19 12:18 | PHA.MEDREC ---
Pharmacy Consult ? Medication Reconciliation Pharmacy has completed the medication reconciliation. spoke with pt and verified directions of ankur with pharmacy
== END 2022-01-19 15:09 ==
PROVIDERS: Physician Assistant; Emergency Provider Emergency Medicine; PCP Physician Assistant Medical
DX: S81.812A Laceration without foreign body, left lower leg, initial encounter (principal); F03.90 Unspecified dementia, unspecified severity, without behavioral disturbance, psychotic disturbance, mood disturbance, and anxiety; M54.2 Cervicalgia; M62.82 Rhabdomyolysis; R51.9 Headache, unspecified; R26.9 Unspecified abnormalities of gait and mobility; W01.0XXA Fall on same level from slipping, tripping and stumbling without subsequent striking against object, initial encounter; Y93.9 Activity, unspecified; Y92.009 Unspecified place in unspecified non-institutional (private) residence as the place of occurrence of the external cause; Y99.9 Unspecified external cause status; Z20.822 Contact with and (suspected) exposure to COVID-19; Z79.899 Other long term (current) drug therapy
CPT/HCPCS: 13121; 13122; 36415; 70450; 72125; 80048; 80076; 81001; 82550; 83735; 84484; 85025; 85610; 85730; 87086; 87635; 93005; 96360; 97162; 99285

== ENCOUNTER 2022-02-01 14:15 | Outpatient (RCR) | payer MEDICARE, SELFPAY | END 2022-03-16 09:14 | disposition home or self-care (01) | LOC: HO.WCC 14:15 | PROVIDERS: PCP Physician Assistant Medical; Visit Provider Surgery | DX: S81.812D Laceration without foreign body, left lower leg, subsequent encounter (principal); I10 Essential (primary) hypertension; Z79.2 Long term (current) use of antibiotics; Z79.899 Other long term (current) drug therapy | CPT/HCPCS: 11042; 11045; 99212; 99213 ==

== ENCOUNTER 2022-03-01 12:29 | Outpatient (REF) | payer MEDICARE, SELFPAY ==
--- NOTE | ~2022-03-01 | US_ITS ---
EXAMINATION: US VENOUS ULTRASOUND WITH DOPPLER LOWER EXTREMITY, LEFT CLINICAL INFORMATION: Pain, swelling and redness COMPARISON: None TECHNIQUE: Ultrasound of the deep veins is performed from the hip to the calf with compression sonography and color and pulse Doppler assessment. Spectral analysis with color-flow imaging is performed. FINDINGS: There is normal venous compression and respiratory variation and augmented flow. The visualized common femoral vein, superficial femoral vein, profunda femoral vein, popliteal vein, and the trifurcation region shows no evidence of deep venous thrombosis. There is no significant popliteal fossa cyst. US/US venous duplex LE LT IMPRESSION: No DVT demonstrated in the left lower extremity.
== END 2022-03-01 12:30 | disposition home or self-care (01) ==
LOC: HO.US 12:29
PROVIDERS: PCP Physician Assistant Medical; Visit Provider Surgery
DX: I83.12 Varicose veins of left lower extremity with inflammation (principal)
CPT/HCPCS: 93971

== ENCOUNTER 2022-03-11 12:45 | Observation (INO) | payer MEDICARE, SELFPAY ==
--- NOTE | ~2022-03-11 | CT_ITS ---
EXAMINATION: CT HEAD WITHOUT CONTRAST CLINICAL INFORMATION: Altered mental status. COMPARISON: 01/18/[address] scan. TECHNIQUE: Contiguous axial imaging was performed from the skull base to vertex without intravenous administration of contrast. Coronal and sagittal reformatted images were obtained. This CT examination was performed using dose optimization techniques as appropriate, variously including the following: *Automated exposure control *Adjustment of mA and/or kV according to patient size (this includes techniques or standardized protocols for targeted exams where dose is matched to indication/reason for exam; i.e. extremities or head) *Use of iterative reconstruction technique DLP: 678 mGy-cm FINDINGS: There is mild widening of the cortical sulci and associated ventriculomegaly. The lateral ventricles are symmetrical. Mild periventricular microvascular changes. The third and fourth ventricles are in their normal midline position. The basilar and prepontine cisterns are unremarkable. There is no acute intra or extracerebral abnormality. There is no mass effect or midline shift. Sections through the bony calvarium are unremarkable. The orbits are intact. The paranasal sinuses are clear. The mastoid air cells are clear. CT/CT head/brain wo IV con IMPRESSION: No acute intracranial pathology.
--- NOTE | ~2022-03-11 | XR_ITS ---
EXAMINATION: XR CHEST CLINICAL INFORMATION: Acute mental status change COMPARISON: None TECHNIQUE: Frontal view of the chest was obtained. FINDINGS: The cardiac and mediastinal contours are normal. The lungs are clear. There is blunting of the left lateral costophrenic angle suggestive of small left pleural effusion or pleural thickening. There is no right pleural effusion. There is no pneumothorax. There are old bilateral fractures. There are rods in the thoracic spine. There are postsurgical changes to the lower cervical spine. XR/XR chest 1V IMPRESSION: Blunting at the left lateral costophrenic angle questionable for pleural thickening or small left pleural effusion. Otherwise unremarkable exam.
--- NOTE | ~2022-03-11 | CT_ITS ---
EXAMINATION: CT CERVICAL SPINE WITHOUT CONTRAST CLINICAL INFORMATION: Fall COMPARISON: Previous cervical spine x-ray from January 2022 TECHNIQUE: Axial images through the cervical spine without contrast. Sagittal and coronal reconstructions on the technologist workstation were performed. This CT examination was performed using dose optimization techniques as appropriate, variously including the following: *Automated exposure control *Adjustment of mA and/or kV according to patient size (this includes techniques or standardized protocols for targeted exams where dose is matched to indication/reason for exam; i.e. extremities or head) *Use of iterative reconstruction technique DLP: 332 mGy-cm FINDINGS: Bone alignment is normal. No fracture or dislocation is seen. There is previous surgery/ACDF at C6-C7.. Hardware appears unchanged. There is bony ankylosis at the knee 5 6 disc space. There is degenerative spondylosis and degenerative disc disease at C4-C5 and C7-T1. There are degenerative changes at the C1 dens articulation. There is bilateral multilevel facet arthritis. There is a well-corticated soft tissue ossification adjacent to the C5 spinous process likely related to old trauma. Prevertebral soft tissues are normal. The visualized lung apices are clear. There are rods in the visualized proximal thoracic spine. CT/CT cervical spine wo IV con IMPRESSION: No fracture or dislocation. Stable postsurgical at C6-C7 and degenerative changes. Fleischner guidelines were followed.
[2022-03-11 14:06] VITALS: BP 153/75; PULSE 95; RESP 20; TEMP 36.6; O2SAT 100; BMI 20.9
--- NOTE | 2022-03-11 14:10 | ECG_ITS ---
Test Reason : AMS Blood Pressure : / mmHG Vent. Rate : 076 BPM Atrial Rate : 076 BPM P-R Int : 182 ms QRS Dur : 076 ms QT Int : 352 ms P-R-T Axes : 063 -01 023 degrees QTc Int : 396 ms Normal sinus rhythm with sinus arrhythmia Possible Inferior infarct , age undetermined Cannot rule out Anterior infarct , age undetermined Abnormal ECG When compared with ECG of 18-JAN-2022 12:00, No significant change was found Referred By: Generic ED Physician Electronically Signed By:ORIANA HANNAH
[2022-03-11 14:32] LABS: MANUAL DIFF FLAG NO
[2022-03-11 14:36] LABS: Basophils Percent Auto 0.7 % (0-2); Eosinophils Absolute Auto 0.1 X10*3/uL (0.0-0.4); Eosinophils Percent Auto 1.7 % (0-4); Hematocrit 31.3 % (37.0-47.0); Hemoglobin 10.1 g/dl (12.0-16.0); Imm Gran Abs Auto 0.02 X10*3/uL (0.00-0.03); Imm Gran Pct Auto 0.4 % (0.0-0.4); Lymphocytes Absolute Auto 1.4 X10*3/uL (1.2-4.9); Lymphocytes Percent Auto 25.8 % (20-40); Mean Corpuscular HGB Conc 32.3 g/dl (31.0-35.0); Mean Corpuscular Hemoglobin 31.3 pg (27.0-33.0); Mean Corpuscular Volume 96.9 fL (80.0-98.0); Mean Platelet Volume 8.2 fL (9.4-12.3); Monocytes Absolute Auto 0.6 X10*3/uL (0.1-1.2); Monocytes Percent Auto 11.6 % (2-11); Neutrophils Absolute Auto 3.2 x10*3/uL (2.0-8.3); Neutrophils Percent Auto 59.8 % (45-73); Platelet Count 268 X10*3/uL (160-400); Red Blood Count 3.23 X10*6/uL (4.20-5.50); White Blood Count 5.4 X10*3/uL (4.8-10.8)
[2022-03-11 14:45] LABS: Anion Gap 14 (12-20); Blood Urea Nitrogen 11 mg/dL (9-16); Calcium 8.7 mg/dL (8.4-10.2); Carbon Dioxide 28 mmol/L (22-29); Chloride 100 mmol/L (96-108); Creatinine Clr Calc Pharmacy 55.3; Estimated Glomerular Filt Rate > 60; Glucose Random 98 mg/dL (60-115); Potassium 4.6 mmol/L (3.3-5.1); Sodium 137 mmol/L (135-145)
[2022-03-11 14:47] LABS: COVID-19 Test Negative (Negative)
[2022-03-11 15:47] VITALS: BP 199/76; PULSE 81; RESP 16; TEMP 36.6; O2SAT 97
[2022-03-11 16:35] LABS: Alanine Aminotransferase 20 U/L (0-31); Alkaline Phosphatase 98 U/L (39-117); Aspartate Amino Transferase 22 U/L (5-31); Bilirubin Direct < 0.2 mg/dL (0.0-0.5); Bilirubin Total 0.3 mg/dL (0.0-1.0); Lipase 31 U/L (8-78); Magnesium 2.2 mg/dL (1.6-2.6); Total Protein 6.3 g/dL (6.5-8.0)
--- NOTE | 2022-03-11 16:47 | ED_ITS ---
HPI - Altered Mental Status General Chief Complaint: Altered Mental Status Stated Complaint: increased confusion, fall x2 Time Seen by Provider: 03/11/22 15:36 Source: patient, family and EMS Mode of arrival: EMS History of Present Illness HPI narrative: 81-year-old female with a past medical history of dementia, HTN, presenting to the ED via EMS for increased confusion per family since Saturday. Daughter reports patient has been at [facility] assisted living with multiple falls over the past few days and not at baseline. Also reports bilateral lower extremity swelling/weeping. Unknown head trauma or LOC. reports patient A&O x3 at baseline, with forgetfulness, usually ambulates steadily with walker. Patient denies any complaints at present MD complaint: confusion Onset (ago): day(s) Related Data Home Medications Medication Instructions Recorded Confirmed losartan 100 mg tablet 1 tab PO DAILY 01/19/22 01/19/22 metoprolol succinate 25 mg 1 tab PO DAILY 01/19/22 01/19/22 tablet,extended release 24 hr mirabegron 50 mg tablet,extended 1 tab PO DAILY 01/19/22 01/19/22 release 24 hr (Myrbetriq) multivitamin 1 tab PO DAILY 01/19/22 01/19/22 cephalexin 500 mg capsule 1 cap PO QID 03/11/22 gabapentin 300 mg capsule 1 cap PO DAILY 03/11/22 Allergies Allergy/AdvReac Type Severity Reaction Status Date / Time Unable to Assess Allergy Verified 03/25/21 10:54 Review of Systems Review of Systems: Constitutional: No Fever, No Chills, No Fatigue, No Malaise ENT/Mouth: No Ear Pain, No Nasal Congestion, No sore throat, No Rhinorrhea, No Swallowing Difficulty Eyes: No Eye Pain, No Swelling, No Redness, No Vision Changes Cardiovascular: No Chest Pain, No SOB, + Edema, No Palpitations Respiratory: No Cough, No Sputum, No Dyspnea Gastrointestinal: No Nausea, No Vomiting, No Diarrhea, No Constipation, No Abdominal pain Genitourinary: No Dysuria, No Urinary Frequency, No Hematuria Musculoskeletal: No joint pain, No Myalgias, No Joint Swelling Skin: No Skin Lesions, No rash Neuro: +AMS, No Weakness, No Dizziness, No Headache Yes all other systems are reviewed and are negative Constitutional: Constitutional: Reports as per HPI Neurologic: Denies Abnormal speech present PMFSH Past Medical History Attestation statement: The following information was validated with the patient. Medical History (Updated 03/11/22 @ 20:32 by LUIS A Crandall) Chronic back pain Dementia HTN (hypertension) Squamous cell skin cancer Surgical History (Updated 03/11/22 @ 20:15 by Juan Carlos Mack MD) H/O Spinal surgery H/O: hysterectomy Family History Family History (Updated 03/11/22 @ 20:15 by Juan Carlos Mack MD) Mother Breast cancer Social History Social History Housing: House Patient Tobacco Use Status: Never used Tobacco Advance Directives: No Advance Directives Information Provided: No Physical Exam ED Vital Signs: Vital Signs - 24 hr 03/11/22 14:06 03/11/22 15:47 03/11/22 19:08 Temperature 98 F 97.9 F 98 F Pulse Rate 95 81 90 Respiratory Rate 20 16 18 Blood Pressure 153/75 H 199/76 H 180/79 H Pulse Oximetry 100 97 98 Oxygen Delivery Method Room Air Room Air Room Air BMI result Body Mass Index 20.9 Const General: cooperative, healthy appearing and no acute distress Orientation/consciousness: oriented to person and oriented to place Limitations: no limitations HENMT Head: Yes normal to inspection, Yes atraumatic, No Faulkner's sign and No raccoon eyes Ears: hearing grossly normal bilaterally General nose exam: Normal external nose present Face and sinus: Yes normal facial exam Eyes General: appearance normal, both eyes and all related structures Pupils: Equal, round and reactive pupils present EOM: EOMs intact bilaterally Neck Neck: Yes normal visual inspection and Yes no meningeal signs Chest Chest palpation & inspection: normal inspection of the chest Resp Effort & Inspection: normal respiratory effort and no respiratory distress Auscultation: clear to auscultation bilaterally, no rales, no rhonchi and no wheezes Cardio Rate: regular rate Heart sounds: S1 normal heart sound present and S2 normal heart sound present GI Inspection: Yes normal to inspection Palpation (GI): Soft to palpation, nontender, no guarding and not rigid General: Yes no CVA tenderness Back/Spine/Pelvis Back: no CVA tenderness Skin Rashes: no rashes Wounds: no wounds Neuro General: oriented to person, oriented to place, tone normal, moves all extremit ies, no meningeal signs, no focal motor deficits and CN's II-XI intact bilaterally Cranial nerves: Yes CN's II-XII intact bilaterally and Yes Equal, round and reactive pupils present Speech: No Abnormal speech present Motor exam (neuro): 5/5 motor strength present throughout and no tremor noted Extrem Other: + chronic bilateral lower extremity venous stasis changes with mild edema. Small skin tear noted to RLE. No active weeping appreciated Course Course Course Narrative: -1657--no leukocytosis. H/H at patient's baseline. Labs otherwise reassuring XR chest 1V IMPRESSION: Blunting at the left lateral costophrenic angle questionable for pleural thickening or small left pleural effusion. Otherwise unremarkable exam. ? CT cervical spine wo IV con IMPRESSION: No fracture or dislocation. Stable postsurgical at C6-C7 and degenerative changes. ? CT head/brain wo IV con IMPRESSION: No acute intracranial pathology. -1740-BNP, ammonia, and CPK WNL -1844--UA negative. Workup unremarkable, patient appears paranoid, agitated, nonsensical. Will add psych consult for ? Dementia with psychotic features, although this is new. CRP added. Case discussed with Dr. Reynolds, low suspicion for meningitis/encephalitis without fever/leukocytosis. Will admit for further management -2029--CPK WNL. Patient admitted to hospitalist service MDM - Altered Mental Status MDM Narrative Medical decision making narrative: 81-year-old female with a past medical history of dementia, HTN, presenting to the ED via EMS for increased confusion per family since Saturday. On exam vital signs stable, afebrile, A&O x2, no focal deficits, no evidence of trauma. Physical exam as above. Concern for encephalopathy vs metabolic/infectious etiologies vs CHF. Rule out ICH. Plan: EKG, labs, UA, CXR, head/C-spine CT, re-evaluate Differential Diagnosis Differential diagnosis: Likely delirium, dementia, encephalopathy and sepsis Medical Records Attestation: I reviewed the patient's medical records. Lab Data Attestation: I reviewed the patient's lab results. Result diagrams: 03/11/22 14:27 03/11/22 14:27 Labs: Lab Results 03/11/22 03/11/22 03/11/22 Range/Units 14:11 14:27 14:27 WBC 5.4 (4.8-10.8) X10*3/uL RBC 3.23 L (4.20-5.50) X10*6/uL Hgb 10.1 L (12.0-16.0) g/dl Hct 31.3 L (37.0-47.0) % MCV 96.9 (80.0-98.0) fL MCH 31.3 (27.0-33.0) pg MCHC 32.3 (31.0-35.0) g/dl RDW 13.0 (11.0-16.0) % Plt Count 268 D (160-400) X10*3/uL MPV 8.2 L (9.4-12.3) fL Immature Gran % (Auto) 0.4 (0.0-0.4) % Neut % (Auto) 59.8 (45-73) % Lymph % (Auto) 25.8 (20-40) % [place] % (Auto) 11.6 H (2-11) % Eos % (Auto) 1.7 (0-4) % Baso % (Auto) 0.7 (0-2) % Lymph # (Auto) 1.4 (1.2-4.9) X10*3/uL [place] # (Auto) 0.6 (0.1-1.2) X10*3/uL Eos # (Auto) 0.1 (0.0-0.4) X10*3/uL Baso # (Auto) 0.0 (0.0-0.2) X10*3/uL Abs Immat Gran (auto) 0.02 (0.00-0.03) X10*3/uL Absolute Neuts (auto) 3.2 (2.0-8.3) x10*3/uL Absolute Nucleated RBC 0.000 (0.0-0.012) X10*3/uL Nucleated RBC % (auto) 0.0 (0.0-0.2) /100WBC Sodium 137 (135-145) mmol/L Potassium 4.6 (3.3-5.1) mmol/L Chloride 100 (96-108) mmol/L Carbon Dioxide 28 (22-29) mmol/L Anion Gap 14 (12-20) BUN 11 (9-16) mg/dL Creatinine 0.67 (0.5-1.4) mg/dL Estim Creat Clear Calc 55.3 Estimated GFR > 60 Random Glucose 98 (60-115) mg/dL Calcium 8.7 (8.4-10.2) mg/dL Magnesium 2.2 (1.6-2.6) mg/dL Total Bilirubin 0.3 (0.0-1.0) mg/dL Direct Bilirubin < 0.2 (0.0-0.5) mg/dL AST 22 (5-31) U/L ALT 20 (0-31) U/L Alkaline Phosphatase 98 D (39-117) U/L Ammonia (13-55) umol/L Total Creatine Kinase 78 D (26-140) U/L Troponin I High Sens < 3.5 D (<3.5-17.0) ng/L C-Reactive Protein 0.10 (< or = 0.50) mg/dL B-Natriuretic Peptide 46 (<100) pg/mL Total Protein 6.3 L (6.5-8.0) g/dL Albumin 4.0 (3.5-5.0) g/dL Lipase 31 (8-78) U/L Urine Color Urine Appearance Urine pH (5.0-9.0) Ur Specific [place] (1.005-1.025) Urine Protein (Neg-Trace) mg/dL Urine Glucose (UA) (Negative) mg/dL Urine Ketones (Negative) mg/dL Urine Blood (Negative) Urine Nitrite (Negative) Ur Leukocyte Esterase (Negative) COVID-19 (TLAIB) (Negative) COVID-19 Clin Com 03/11/22 03/11/22 03/11/22 Range/Units 14:27 17:08 18:19 WBC (4.8-10.8) X10*3/uL RBC (4.20-5.50) X10*6/uL Hgb (12.0-16.0) g/dl Hct (37.0-47.0) % MCV (80.0-98.0) fL MCH (27.0-33.0) pg MCHC (31.0-35.0) g/dl RDW (11.0-16.0) % Plt Count (160-400) X10*3/uL MPV (9.4-12.3) fL Immature Gran % (Auto) (0.0-0.4) % Neut % (Auto) (45-73) % Lymph % (Auto) (20-40) % [place] % (Auto) (2-11) % Eos % (Auto) (0-4) % Baso % (Auto) (0-2) % Lymph # (Auto) (1.2-4.9) X10*3/uL [place] # (Auto) (0.1-1.2) X10*3/uL Eos # (Auto) (0.0-0.4) X10*3/uL Baso # (Auto) (0.0-0.2) X10*3/uL Abs Immat Gran (auto) (0.00-0.03) X10*3/uL Absolute Neuts (auto) (2.0-8.3) x10*3/uL Absolute Nucleated RBC (0.0-0.012) X10*3/uL Nucleated RBC % (auto) (0.0-0.2) /100WBC Sodium (135-145) mmol/L Potassium (3.3-5.1) mmol/L Chloride (96-108) mmol/L Carbon Dioxide (22-29) mmol/L Anion Gap (12-20) BUN (9-16) mg/dL Creatinine (0.5-1.4) mg/dL Estim Creat Clear Calc Estimated GFR Random Glucose (60-115) mg/dL Calcium (8.4-10.2) mg/dL Magnesium (1.6-2.6) mg/dL Total Bilirubin (0.0-1.0) mg/dL Direct Bilirubin (0.0-0.5) mg/dL AST (5-31) U/L ALT (0-31) U/L Alkaline Phosphatase (39-117) U/L Ammonia 21 (13-55) umol/L Total Creatine Kinase (26-140) U/L Troponin I High Sens (<3.5-17.0) ng/L C-Reactive Protein (< or = 0.50) mg/dL B-Natriuretic Peptide (<100) pg/mL Total Protein (6.5-8.0) g/dL Albumin (3.5-5.0) g/dL Lipase (8-78) U/L Urine Color Yellow Urine Appearance Clear Urine pH 7.0 (5.0-9.0) Ur Specific [place] 1.010 (1.005-1.025) Urine Protein Trace (Neg-Trace) mg/dL Urine Glucose (UA) Negative (Negative) mg/dL Urine Ketones Negative (Negative) mg/dL Urine Blood Negative (Negative) Urine Nitrite Negative (Negative) Ur Leukocyte Esterase Negative (Negative) COVID-19 (TALIB) Negative (Negative) COVID-19 Clin Com See Note Discharge Plan Discharge Clinical Impression: Altered mental status Patient Disposition: Admitted As Inpatient Prescriptions: No Action metoprolol succinate 25 mg tablet extended release 24 hr 1 tab PO DAILY losartan 100 mg tablet 1 tab PO DAILY multivitamin Tablet 1 tab PO DAILY Myrbetriq 50 mg tablet extended release 24 hr 1 tab PO DAILY cephalexin 500 mg capsule 1 cap PO QID gabapentin 300 mg capsule 1 cap PO DAILY
[2022-03-11 17:15] LABS: B Type Natriuretic Peptide 46 pg/mL (<100); Troponin-I High Sensitivity < 3.5 ng/L (<3.5-17.0)
[2022-03-11 17:23] LABS: Ammonia 21 umol/L (13-55)
[2022-03-11 18:28] LABS: Appearance Urine Clear; Color Urine Yellow; Glucose Urine UA Negative (Negative); Leukocyte Esterase Urine Negative (Negative); Nitrite Urine Negative (Negative); Urine Blood Negative (Negative); Urine Ketones Negative (Negative); Urine Protein Trace mg/dL (Neg-Trace)
[2022-03-11 19:08] VITALS: BP 180/79; PULSE 90; RESP 18; TEMP 36.6; O2SAT 98
--- NOTE | 2022-03-11 20:34 | PM.IMHP ---
History of Present Illness Date of Service: 03/11/22 Chief Complaint: ams 81F with pmh of chronic back pain, htn, dementia, brought in from assisted living by daughter for worsening mental status. at baseline patient pleasantly confused, oriented to self and place but not time and has poor short term memory. daughter states patient legs have been having increased swelling and weeping and that she has been increasingly confused and aggressive. in ED work up including labs, CTH, UA benign. Review of Systems Review of Systems: Constitutional: Denies fever, denies Chills Eyes: denies blurry vision ENT: denies sore throat CVS: denies chest pain Respiratory: Denies dyspnea GI: no abdominal pain : denies dysuria MSK: denies neck pain Skin: denies rash Neuro: denies specific motor weakness Psych: denies suicidal ideation Endocrine: denies heat/cold intolerance Hematologic: denies easy bleeding Allergy: denies hives PMFSH Medical History Chronic back pain Dementia HTN (hypertension) Squamous cell skin cancer Family History Mother Breast cancer Surgical History H/O Spinal surgery H/O: hysterectomy Social History Housing: House Patient Tobacco Use Status: Never used Tobacco Advance Directives: No Advance Directives Information Provided: No Meds Allergies Allergy/AdvReac Type Severity Reaction Status Date / Time Unable to Assess Allergy Verified 03/25/21 10:54 Active Medications: Current Medications Acetaminophen (Acetaminophen 325 Mg Tablet) 650 mg PO Q6H PRN PRN Reason: Pain, Mild (Pain Scale 1-3) Enoxaparin Sodium (Enoxaparin Sodium 40 Mg/0.4 Ml Syringe) 40 mg SUBCUT Q24H [facility] Sodium Chloride (0.9 % Sodium Chloride Flush 3 Ml Syringe) 3 ml IVFLUSH QSHIFT [facility] Home Medications Medication Instructions Recorded Confirmed Last Taken Type losartan 100 mg tablet 1 tab PO DAILY 01/19/22 01/19/22 Unknown History metoprolol succinate 25 mg 1 tab PO DAILY 01/19/22 01/19/22 Unknown History tablet,extended release 24 hr mirabegron 50 mg tablet,extended 1 tab PO DAILY 01/19/22 01/19/22 Unknown History release 24 hr (Myrbetriq) multivitamin 1 tab PO DAILY 01/19/22 01/19/22 Unknown History cephalexin 500 mg capsule 1 cap PO QID 03/11/22 Unknown History gabapentin 300 mg capsule 1 cap PO DAILY 03/11/22 Unknown History Physical Exam Vital Signs and Narrative: Vital Signs: Last Vital Signs Temp 98 F 03/11/22 19:08 Pulse 90 03/11/22 19:08 Resp 18 03/11/22 19:08 BP 180/79 H 03/11/22 19:08 Pulse Ox 98 03/11/22 19:08 O2 Del Method 03/11/22 19:08 BMI result Body Mass Index 20.9 General: no acute distress HEENT: atraumatic Neck: normal to visual inspection CVS: S1, S2, RRR Resp: CTA bilateral Chest: non tender GI: soft, non tender, non distended : no CVA tenderness Skin: healing skin tear on leg Extremities: no edema Neuro: Oriented X2, grossly intact Psych: cooperative Results Labs CBC and Chem 7: 03/11/22 14:27 03/11/22 14:27 Labs: Laboratory Results - last 24 hr 03/11/22 03/11/22 03/11/22 14:11 14:27 14:27 MCV 96.9 MCH 31.3 MCHC 32.3 RDW 13.0 Plt Count 268 D MPV 8.2 L Immature Gran % (Auto) 0.4 Neut % (Auto) 59.8 Lymph % (Auto) 25.8 [place] % (Auto) 11.6 H Eos % (Auto) 1.7 Baso % (Auto) 0.7 Lymph # (Auto) 1.4 [place] # (Auto) 0.6 Eos # (Auto) 0.1 Baso # (Auto) 0.0 Abs Immat Gran (auto) 0.02 Absolute Neuts (auto) 3.2 Absolute Nucleated RBC 0.000 Nucleated RBC % (auto) 0.0 Anion Gap 14 Estim Creat Clear Calc 55.3 Estimated GFR > 60 Random Glucose 98 Calcium 8.7 Magnesium 2.2 Total Bilirubin 0.3 Direct Bilirubin < 0.2 AST 22 ALT 20 Alkaline Phosphatase 98 D Ammonia Total Creatine Kinase 78 D C-Reactive Protein 0.10 B-Natriuretic Peptide 46 Total Protein 6.3 L Albumin 4.0 Lipase 31 Urine Color Urine Appearance Urine pH Ur Specific [place] Urine Protein Urine Glucose (UA) Urine Ketones Urine Blood Urine Nitrite Ur Leukocyte Esterase COVID-19 (TALIB) COVID-19 Clin Com 03/11/22 03/11/22 03/11/22 14:27 17:08 18:19 MCV MCH MCHC RDW Plt Count MPV Immature Gran % (Auto) Neut % (Auto) Lymph % (Auto) [place] % (Auto) Eos % (Auto) Baso % (Auto) Lymph # (Auto) [place] # (Auto) Eos # (Auto) Baso # (Auto) Abs Immat Gran (auto) Absolute Neuts (auto) Absolute Nucleated RBC Nucleated RBC % (auto) Anion Gap Estim Creat Clear Calc Estimated GFR Random Glucose Calcium Magnesium Total Bilirubin Direct Bilirubin AST ALT Alkaline Phosphatase Ammonia 21 Total Creatine Kinase C-Reactive Protein B-Natriuretic Peptide Total Protein Albumin Lipase Urine Color Yellow Urine Appearance Clear Urine pH 7.0 Ur Specific [place] 1.010 Urine Protein Trace Urine Glucose (UA) Negative Urine Ketones Negative Urine Blood Negative Urine Nitrite Negative Ur Leukocyte Esterase Negative COVID-19 (TALIB) Negative COVID-19 Clin Com See Note Imaging Radiologist's Impressions: Impressions Head CT 03/11/22 16:10 IMPRESSION: No acute intracranial pathology. Chest X-Ray 03/11/22 16:25 IMPRESSION: Blunting at the left lateral costophrenic angle questionable for pleural thickening or small left pleural effusion. Otherwise unremarkable exam. Cervical Spine CT 03/11/22 16:35 IMPRESSION: No fracture or dislocation. Stable postsurgical at C6-C7 and degenerative changes. Fleischner guidelines were followed. Assessment and Plan (1) Altered mental status: Status: Acute Plan 81F with pmh dementia, htn, chronic back pain presented with ams alzheimers dementia with acute delerium unclear cause of delerium, possibly due to new setting at assisted living will rule out other causes, check b12, tsh, neuro eval PT eval htn continue antihypertensives chronic back pain pain control dvt prophylaxis - lovenox full code Quality Stroke Does the patient have a stroke diagnosis?: No VTE Prior VTE?: No VTE Risk Level:: Medical - moderate - high VTE Device Contraindication: Treatment Not Indicated VTE Drug Contraindication: N/A - Med Ordered
[2022-03-11 21:11] LABS: TSH reflex Free T4 1.64 uIU/mL (0.32-4.0)
[2022-03-11] MEDS: Enoxaparin Sodium 40 MG/0.4 ML SYRINGE SUBCUT (21:22)
[2022-03-11 21:49] VITALS: BP 164/71; PULSE 92; RESP 16; TEMP 36.2; O2SAT 97
[2022-03-11 21:54] VITALS: BMI 22.6
[2022-03-11] MEDS: 0.9 % Sodium Chloride Flush 3 ML SYRINGE IVFLUSH (21:54)
[2022-03-12] VITALS (8 sets, daily range): BP systolic 140–174; BP diastolic 74–92; PULSE 69–98; RESP 16–18; TEMP 36.1–36.7; O2SAT 94–99
[2022-03-12 06:16] LABS: Hematocrit 29.6 % (37.0-47.0); Hemoglobin 9.6 g/dl (12.0-16.0); Mean Corpuscular HGB Conc 32.4 g/dl (31.0-35.0); Mean Corpuscular Hemoglobin 30.9 pg (27.0-33.0); Mean Corpuscular Volume 95.2 fL (80.0-98.0); Mean Platelet Volume 8.7 fL (9.4-12.3); Platelet Count 261 X10*3/uL (160-400); Red Blood Count 3.11 X10*6/uL (4.20-5.50); Red Cell Distribution Width 12.8 % (11.0-16.0); White Blood Count 5.1 X10*3/uL (4.8-10.8)
[2022-03-12 06:31] LABS: Anion Gap 14 (12-20); Blood Urea Nitrogen 14 mg/dL (9-16); Calcium 8.6 mg/dL (8.4-10.2); Carbon Dioxide 27 mmol/L (22-29); Chloride 102 mmol/L (96-108); Creatinine Clr Calc Pharmacy 61.8; Estimated Glomerular Filt Rate > 60; Glucose Fasting 104 mg/dL (60-99); Sodium 139 mmol/L (135-145)
--- NOTE | 2022-03-12 08:18 | PHA.MEDREC ---
Pharmacy Consult ? Medication Reconciliation Pharmacy has completed the medication reconciliation. Spoke to daughter Gamaliel
[2022-03-12] MEDS: Multivitamin TABLET 1 TAB PO (08:53)
[2022-03-12] MEDS: 0.9 % Sodium Chloride Flush 3 ML SYRINGE IVFLUSH ×3 (08:53→19:21)
[2022-03-12] MEDS: Metoprolol Succinate ER 25 MG TAB.ER.24H PO (08:53)
[2022-03-12] MEDS: Mirabegron 50 MG TAB.ER.24H PO (08:53)
[2022-03-12] MEDS: Acetaminophen 325 MG TABLET 650 MG PO (08:54)
--- NOTE | 2022-03-12 09:32 | HO.PM.IMPN ---
Subjective Subjective Date of Service: 03/12/22 Interval History: cc: agitation interval history: wants to go home Cardiovascular Cardiovascular: Reports no additional cardiovascular complaints Gastrointestinal Gastrointestinal: Reports no additional gastrointestinal complaints Physical Exam Vital Signs: Vital Signs: Last Vital Signs Temp 97.3 F 03/12/22 08:00 Pulse 80 03/12/22 08:00 Resp 18 03/12/22 08:00 BP 169/82 H 03/12/22 08:00 Pulse Ox 96 03/12/22 08:00 O2 Del Method 03/12/22 08:00 BMI result Body Mass Index 22.6 General: AO X 2, no acute distress Resp: CTA bilateral, no accessory muscles used CVS: S1,S2,RRR GI: soft, non tender, non distended Neuro: motor grossly intact, alert Psych: appropriate affect, impaired insight Objective Data Active Medications Acetaminophen (Acetaminophen 325 Mg Tablet) 650 mg PO Q6H PRN PRN Reason: Pain, Mild (Pain Scale 1-3) Last Admin: 03/12/22 08:54 Dose: 650 mg Documented By: ZARI Enoxaparin Sodium (Enoxaparin Sodium 40 Mg/0.4 Ml Syringe) 40 mg SUBCUT Q24H [facility] Last Admin: 03/11/22 21:22 Dose: 40 mg Documented By: DEB Gabapentin (Gabapentin 300 Mg Capsule) 300 mg PO BEDTIME [facility] Metoprolol Succinate (Metoprolol Succinate Er 25 Mg Tab.Er.24h) 25 mg PO DAILY [facility]; Protocol Last Admin: 03/12/22 08:53 Dose: 25 mg Documented By: ZARI Mirabegron (Mirabegron 50 Mg Tab.Er.24h) 50 mg PO DAILY [facility] Last Admin: 03/12/22 08:53 Dose: 50 mg Documented By: ZARI Multivitamins/Vitamin C (Multivitamin Tablet) 1 tab PO DAILY [facility] Last Admin: 03/12/22 08:53 Dose: 1 tab Documented By: ZARI Oxycodone HCl (Oxycodone Hcl Immed Release 5 Mg Tablet) 5 mg PO Q4H PRN PRN Reason: Moderate Pain (Scale Score 5-6) Sodium Chloride (0.9 % Sodium Chloride Flush 3 Ml Syringe) 3 ml IVFLUSH QSHIFT [facility] Last Admin: 03/12/22 08:53 Dose: 3 ml Documented By: ZARI Labs CBC & Chem 7: 03/12/22 05:41 03/12/22 05:41 Labs: Laboratory Results - last 24 hr 03/11/22 03/11/22 03/11/22 14:11 14:27 14:27 MCV 96.9 MCH 31.3 MCHC 32.3 RDW 13.0 Plt Count 268 D MPV 8.2 L Immature Gran % (Auto) 0.4 Neut % (Auto) 59.8 Lymph % (Auto) 25.8 Sabine % (Auto) 11.6 H Eos % (Auto) 1.7 Baso % (Auto) 0.7 Lymph # (Auto) 1.4 Sabine # (Auto) 0.6 Eos # (Auto) 0.1 Baso # (Auto) 0.0 Abs Immat Gran (auto) 0.02 Absolute Neuts (auto) 3.2 Absolute Nucleated RBC 0.000 Nucleated RBC % (auto) 0.0 Anion Gap 14 Estim Creat Clear Calc 55.3 Estimated GFR > 60 Random Glucose 98 Fasting Glucose Calcium 8.7 Magnesium 2.2 Total Bilirubin 0.3 Direct Bilirubin < 0.2 AST 22 ALT 20 Alkaline Phosphatase 98 D Ammonia Total Creatine Kinase 78 D C-Reactive Protein 0.10 B-Natriuretic Peptide 46 Total Protein 6.3 L Albumin 4.0 Lipase 31 TSH 1.64 Urine Color Urine Appearance Urine pH Ur Specific Conway Urine Protein Urine Glucose (UA) Urine Ketones Urine Blood Urine Nitrite Ur Leukocyte Esterase COVID-19 (TALIB) COVID-19 Clin Com 03/11/22 03/11/22 03/11/22 14:27 17:08 18:19 MCV MCH MCHC RDW Plt Count MPV Immature Gran % (Auto) Neut % (Auto) Lymph % (Auto) Sabine % (Auto) Eos % (Auto) Baso % (Auto) Lymph # (Auto) Sabine # (Auto) Eos # (Auto) Baso # (Auto) Abs Immat Gran (auto) Absolute Neuts (auto) Absolute Nucleated RBC Nucleated RBC % (auto) Anion Gap Estim Creat Clear Calc Estimated GFR Random Glucose Fasting Glucose Calcium Magnesium Total Bilirubin Direct Bilirubin AST ALT Alkaline Phosphatase Ammonia 21 Total Creatine Kinase C-Reactive Protein B-Natriuretic Peptide Total Protein Albumin Lipase TSH Urine Color Yellow Urine Appearance Clear Urine pH 7.0 Ur Specific Conway 1.010 Urine Protein Trace Urine Glucose (UA) Negative Urine Ketones Negative Urine Blood Negative Urine Nitrite Negative Ur Leukocyte Esterase Negative COVID-19 (TALIB) Negative COVID-19 Clin Com See Note 03/12/22 03/12/22 05:41 05:41 MCV 95.2 MCH 30.9 MCHC 32.4 RDW 12.8 Plt Count 261 MPV 8.7 L Immature Gran % (Auto) Neut % (Auto) Lymph % (Auto) Sabine % (Auto) Eos % (Auto) Baso % (Auto) Lymph # (Auto) Sabine # (Auto) Eos # (Auto) Baso # (Auto) Abs Immat Gran (auto) Absolute Neuts (auto) Absolute Nucleated RBC 0.000 Nucleated RBC % (auto) 0.0 Anion Gap 14 Estim Creat Clear Calc 61.8 Estimated GFR > 60 Random Glucose Fasting Glucose 104 H Calcium 8.6 Magnesium Total Bilirubin Direct Bilirubin AST ALT Alkaline Phosphatase Ammonia Total Creatine Kinase C-Reactive Protein B-Natriuretic Peptide Total Protein Albumin Lipase TSH Urine Color Urine Appearance Urine pH Ur Specific Conway Urine Protein Urine Glucose (UA) Urine Ketones Urine Blood Urine Nitrite Ur Leukocyte Esterase COVID-19 (TALIB) COVID-19 Clin Com Assessment and Plan (1) Altered mental status: Status: Acute Plan 81F with pmh dementia, htn, chronic back pain presented with ams alzheimers dementia with acute delerium unclear cause of delerium, possibly due to new setting at assisted living will rule out other causes, check b12, folate, neuro eval PT eval tsh normal htn continue antihypertensives chronic back pain pain control dvt prophylaxis - lovenox full code reason for continued hospitalization: safe dispo Quality Stroke Does the patient have a stroke diagnosis?: No VTE Prior VTE?: No VTE Risk Level:: Medical - moderate - high VTE Device Contraindication: Treatment Not Indicated VTE Drug Contraindication: N/A - Med Ordered
[2022-03-12] MEDS: oxyCODONE HCl Immed Release 5 MG TABLET PO (16:40)
[2022-03-12] MEDS: Ascorbic Acid 500 MG TABLET PO (19:21)
[2022-03-12] MEDS: Gabapentin 300 MG CAPSULE PO (19:21)
[2022-03-12] MEDS: Zinc Sulfate 220 MG CAPSULE PO (19:21)
[2022-03-12] MEDS: Enoxaparin Sodium 40 MG/0.4 ML SYRINGE SUBCUT (19:21)
[2022-03-13] VITALS (7 sets, daily range): BP systolic 134–167; BP diastolic 64–88; PULSE 68–84; RESP 15–18; TEMP 36–36.9; O2SAT 96–98
[2022-03-13] MEDS: Omeprazole 20 MG CAPSULE.DR PO (04:40)
[2022-03-13] MEDS: oxyCODONE HCl Immed Release 5 MG TABLET PO ×3 (04:40→23:25)
[2022-03-13 07:36] LABS: Folate > 20.0 ng/mL (> or = 4.0); Vitamin B12 700 pg/mL (200-900)
--- NOTE | 2022-03-13 08:44 | HO.PM.IMPN ---
Subjective Subjective Date of Service: 03/13/22 Interval History: cc: agitation interval history: reports feeling better, calmer Cardiovascular Cardiovascular: Reports no additional cardiovascular complaints Gastrointestinal Gastrointestinal: Reports no additional gastrointestinal complaints Physical Exam Vital Signs: Vital Signs: Last Vital Signs Temp 96.8 F 03/13/22 06:56 Pulse 77 03/13/22 06:56 Resp 18 03/13/22 06:56 BP 159/72 H 03/13/22 06:56 Pulse Ox 96 03/13/22 06:56 O2 Del Method 03/13/22 06:56 BMI result Body Mass Index 22.6 General: AO X 2, no acute distress Resp: CTA bilateral, no accessory muscles used CVS: S1,S2,RRR GI: soft, non tender, non distended Neuro: motor grossly intact, alert Psych: appropriate affect, impaired insight Objective Data Active Medications Acetaminophen (Acetaminophen 325 Mg Tablet) 650 mg PO Q6H PRN PRN Reason: Pain, Mild (Pain Scale 1-3) Last Admin: 03/12/22 08:54 Dose: 650 mg Documented By: ZARI Ascorbic Acid (Ascorbic Acid 500 Mg Tablet) 500 mg PO BEDTIME [facility] Last Admin: 03/12/22 19:21 Dose: 500 mg Documented By: RAUL Enoxaparin Sodium (Enoxaparin Sodium 40 Mg/0.4 Ml Syringe) 40 mg SUBCUT Q24H [facility] Last Admin: 03/12/22 19:21 Dose: 40 mg Documented By: RAUL Gabapentin (Gabapentin 300 Mg Capsule) 300 mg PO BEDTIME [facility] Last Admin: 03/12/22 19:21 Dose: 300 mg Documented By: RAUL Metoprolol Succinate (Metoprolol Succinate Er 25 Mg Tab.Er.24h) 25 mg PO DAILY [facility]; Protocol Last Admin: 03/12/22 08:53 Dose: 25 mg Documented By: ZARI Mirabegron (Mirabegron 50 Mg Tab.Er.24h) 50 mg PO DAILY [facility] Last Admin: 03/12/22 08:53 Dose: 50 mg Documented By: ZARI Multivitamins/Vitamin C (Multivitamin Tablet) 1 tab PO DAILY [facility] Last Admin: 03/12/22 08:53 Dose: 1 tab Documented By: ZARI Omeprazole (Omeprazole 20 Mg Capsule.Dr) 20 mg PO DAILY@0630 [facility] Last Admin: 03/13/22 04:40 Dose: 20 mg Documented By: RAUL Oxycodone HCl (Oxycodone Hcl Immed Release 5 Mg Tablet) 5 mg PO Q4H PRN PRN Reason: Moderate Pain (Scale Score 5-6) Last Admin: 03/13/22 04:40 Dose: 5 mg Documented By: RAUL Sodium Chloride (0.9 % Sodium Chloride Flush 3 Ml Syringe) 3 ml IVFLUSH QSHIFT [facility] Last Admin: 03/12/22 19:21 Dose: 3 ml Documented By: RAUL Zinc Sulfate (Zinc Sulfate 220 Mg Capsule) 220 mg PO BEDTIME [facility] Last Admin: 03/12/22 19:21 Dose: 220 mg Documented By: RAUL Labs CBC & Chem 7: 03/12/22 05:41 03/12/22 05:41 Labs: Laboratory Results - last 24 hr 03/11/22 14:27 Vitamin B12 700 Folate > 20.0 Assessment and Plan (1) Altered mental status: Status: Acute Plan 81F with pmh dementia, htn, chronic back pain presented with ams alzheimers dementia with acute delerium unclear cause of delerium, possibly due to new setting at assisted living b12, folate, tsh all WNL neuro eval PT appreciated - STR recommended htn continue toprol chronic back pain oxycodone prn dvt prophylaxis - lovenox full code reason for continued hospitalization: safe dispo planning Quality Stroke Does the patient have a stroke diagnosis?: No VTE Prior VTE?: No VTE Risk Level:: Medical - moderate - high VTE Device Contraindication: Treatment Not Indicated VTE Drug Contraindication: N/A - Med Ordered
[2022-03-13] MEDS: Mirabegron 50 MG TAB.ER.24H PO (09:14)
[2022-03-13] MEDS: Metoprolol Succinate ER 25 MG TAB.ER.24H PO (09:14)
[2022-03-13] MEDS: 0.9 % Sodium Chloride Flush 3 ML SYRINGE IVFLUSH ×3 (09:14→19:06)
[2022-03-13] MEDS: Multivitamin TABLET 1 TAB PO (09:14)
--- NOTE | 2022-03-13 09:25 | MHC.CLN ---
NUTRITION CONSULT FOR SKIN INTEGRITY. BILATERAL LEGS WITH BRUISING, DRY SKIN, AND SCABS. NO PRESSURE AREAS NOTED. DIET=2 GRAM SODIUM. NO ADDITIONAL NUTRITION INTERVENTIONS AT THIS TIME.
--- NOTE | 2022-03-13 09:59 | MHC.CM.PN ---
LUCI ADDRESSED WITH PATIENT'S DAUGHTER EL [phone], YELLOW MAILED VIA CERTIFIED MAIL, WHITE COPY IN CHART PATIENT LIVES AT THE [facility] (3 WEEKS) USES WALKER RECEIVES 60 MINUTES OF CARE FROM FACILITY DAILY FAMILY PRIVATE PAYS FOR 4 HOURS OF CARE DAILY JANET BASURTO'D X3 PFIZER PCP: ALPESH SHAH HCP/COPY REQUESTED BLS TRANSPORT D/C PLAN: ASSISTED LIVING vs STR
--- NOTE | 2022-03-13 13:59 | P.CNNE_ITS ---
History of Present Illness Data of Consult Service Date: 03/13/22 Primary Care Provider: LUIS A Barry Reason for consult: Dementia 81 years old woman who probably suffers from dementia was in hospital with change in mental status. No obvious etiology such as an infection or metabolic abnormality was noted. There was no history of any seizure disorder. She was unable to provide any meaningful history. Review of Systems Review of Systems: No recent cold or flu-like PMFSH Past Medical History Medical History Chronic back pain Dementia HTN (hypertension) Squamous cell skin cancer Family History Family History Mother Breast cancer Surgical History Surgical History H/O Spinal surgery H/O: hysterectomy Social History Social History Housing: House Patient Tobacco Use Status: Never used Tobacco service: No Current occupational status: retired [employer] Allergies Allergy/AdvReac Type Severity Reaction Status Date / Time Unable to Assess Allergy Verified 03/25/21 10:54 Active Medications: Current Medications Acetaminophen (Acetaminophen 325 Mg Tablet) 650 mg PO Q6H PRN PRN Reason: Pain, Mild (Pain Scale 1-3) Last Admin: 03/12/22 08:54 Dose: 650 mg Ascorbic Acid (Ascorbic Acid 500 Mg Tablet) 500 mg PO BEDTIME [facility] Last Admin: 03/12/22 19:21 Dose: 500 mg Enoxaparin Sodium (Enoxaparin Sodium 40 Mg/0.4 Ml Syringe) 40 mg SUBCUT Q24H [facility] Last Admin: 03/12/22 19:21 Dose: 40 mg Gabapentin (Gabapentin 300 Mg Capsule) 300 mg PO BEDTIME [facility] Last Admin: 03/12/22 19:21 Dose: 300 mg Metoprolol Succinate (Metoprolol Succinate Er 25 Mg Tab.Er.24h) 25 mg PO DAILY [facility]; Protocol Last Admin: 03/13/22 09:14 Dose: 25 mg Mirabegron (Mirabegron 50 Mg Tab.Er.24h) 50 mg PO DAILY [facility] Last Admin: 03/13/22 09:14 Dose: 50 mg Multivitamins/Vitamin C (Multivitamin Tablet) 1 tab PO DAILY [facility] Last Admin: 03/13/22 09:14 Dose: 1 tab Omeprazole (Omeprazole 20 Mg Capsule.Dr) 20 mg PO DAILY@06 [facility] Last Admin: 03/13/22 04:40 Dose: 20 mg Oxycodone HCl (Oxycodone Hcl Immed Release 5 Mg Tablet) 5 mg PO Q4H PRN PRN Reason: Moderate Pain (Scale Score 5-6) Last Admin: 03/13/22 04:40 Dose: 5 mg Sodium Chloride (0.9 % Sodium Chloride Flush 3 Ml Syringe) [facility] Last Admin: 03/13/22 09:14 Dose: 3 ml Zinc Sulfate (Zinc Sulfate 220 Mg Capsule) 220 mg PO BEDTIME [facility] Last Admin: 03/12/22 19:21 Dose: 220 mg Home Medications Medication Instructions Recorded Confirmed Last Taken Type metoprolol succinate 25 mg 1 tab PO DAILY 01/19/22 03/12/22 03/11/22 History tablet,extended release 24 hr mirabegron 50 mg tablet,extended 1 tab PO DAILY 01/19/22 03/12/22 03/11/22 History release 24 hr (Myrbetriq) multivitamin 1 tab PO DAILY 01/19/22 03/12/22 03/11/22 History cephalexin 500 mg capsule 1 cap PO QID 03/11/22 03/12/22 03/11/22 History gabapentin 300 mg capsule 1 cap PO BEDTIME 03/11/22 03/12/22 03/11/22 History oxycodone 5 mg tablet 1 tab PO Q4H PRN Moderate Pain 03/11/22 03/12/22 03/11/22 History (Scale Score 5-6) ascorbic acid (vitamin C) 500 mg 500 mg PO BEDTIME 03/12/22 03/12/22 03/11/22 History tablet omeprazole 20 mg capsule,delayed 20 mg PO DAILY@0630 03/12/22 03/12/22 03/11/22 History release zinc acetate 50 mg (zinc) capsule 50 mg PO BEDTIME 03/12/22 03/12/22 03/11/22 History Physical Exam Vital Signs: Vital Signs: Last Vital Signs Temp 97 F 03/13/22 11:08 Pulse 77 03/13/22 11:08 Resp 18 03/13/22 11:08 BP 134/88 09/06/22 11:08 Pulse Ox 98 03/13/22 11:08 O2 Del Method 03/13/22 11:08 BMI result Body Mass Index 22.6 Neuro: Other: Alert and awake comfortable in no acute distress. She was able to answer questions. Spontaneity and fluency of speech were normal. Comprehension was normal. She did not know what year this was and where she lived. There was a nurse in her room and she stated that she was probably close to family. Face was symmetrical. Visual swanson are full. There was no pronator drift. Deep tendon reflexes were absent with flexor plantars. Scaly rash was noted in legs. Results Labs CBC & Chem 7: 03/12/22 05:41 03/12/22 05:41 Labs: Moderate diffuse cerebral atrophy and some microvascular ischemic changes noted on CT scan. Assessment and Plan (1) Alzheimer disease: Status: Acute 81 years old woman with dementia probably of Alzheimer-type. There is no obvious abnormality in testing to suggest metabolic toxic abnormality. Mainstay of management is reassurance and education especially of the family. As far as medicines are concerned, no disease modifying drug is available. Medicines for behavioral symptoms might be useful. Procedures Date of Service Date of Service: 03/13/22
[2022-03-13] MEDS: Zinc Sulfate 220 MG CAPSULE PO (19:06)
[2022-03-13] MEDS: Enoxaparin Sodium 40 MG/0.4 ML SYRINGE SUBCUT (19:06)
[2022-03-13] MEDS: Acetaminophen 325 MG TABLET 650 MG PO (19:06)
[2022-03-13] MEDS: Ascorbic Acid 500 MG TABLET PO (19:06)
[2022-03-13] MEDS: Gabapentin 300 MG CAPSULE PO (19:06)
[2022-03-14] MEDS: Acetaminophen 325 MG TABLET 650 MG PO ×2 (01:03→20:49)
[2022-03-14 03:44] VITALS: BP 146/74; PULSE 67; RESP 18; TEMP 36.7; O2SAT 98
[2022-03-14] MEDS: Omeprazole 20 MG CAPSULE.DR PO (06:07)
[2022-03-14 07:23] VITALS: BP 149/70; PULSE 76; RESP 18; TEMP 35.5; O2SAT 98
[2022-03-14] MEDS: Mirabegron 50 MG TAB.ER.24H PO (08:46)
[2022-03-14] MEDS: Metoprolol Succinate ER 25 MG TAB.ER.24H PO (08:46)
[2022-03-14] MEDS: Multivitamin TABLET 1 TAB PO (08:46)
[2022-03-14] MEDS: 0.9 % Sodium Chloride Flush 3 ML SYRINGE IVFLUSH ×3 (08:50→23:23)
[2022-03-14 11:56] VITALS: BP 142/66; PULSE 77; RESP 18; TEMP 36.4; O2SAT 98
--- NOTE | 2022-03-14 12:23 | HO.PM.IMPN ---
Subjective Subjective Date of Service: 03/14/22 Interval History: Seen and evaluated this morning Reported feeling good overall and would like to speak to her children No reported overnight events Review of Systems Review of Systems: Yes all other systems are reviewed and are negative Physical Exam Vital Signs: Vital Signs: Last Vital Signs Temp 97.5 F 03/14/22 11:56 Pulse 77 03/14/22 11:56 Resp 18 03/14/22 11:56 BP 142/66 H 03/14/22 11:56 Pulse Ox 98 03/14/22 11:56 O2 Del Method 03/14/22 11:56 BMI result Body Mass Index 22.6 Const: Other: Constitutional : Alert, interactive, not in distress Neck : Normal inspection, Supple Cardiovascular : RRR, no JVP, no lower extremity edema Respiratory : fair bilateral air entry, no crackles, wheezes or rhonchi Gastrointestinal: soft, lax, Normal bowel sounds, Non tender Skin : Warm, Dry Neurological : Alert & disoriented to time and place, No focal deficit , CN 2-12 within normal Objective Data Active Medications Acetaminophen (Acetaminophen 325 Mg Tablet) 650 mg PO Q6H PRN PRN Reason: Pain, Mild (Pain Scale 1-3) Last Admin: 03/14/22 01:03 Dose: 650 mg Documented By: CHRIS Ascorbic Acid (Ascorbic Acid 500 Mg Tablet) 500 mg PO BEDTIME [facility] Last Admin: 03/13/22 19:06 Dose: 500 mg Documented By: CHRIS Enoxaparin Sodium (Enoxaparin Sodium 40 Mg/0.4 Ml Syringe) 40 mg SUBCUT Q24H [facility] Last Admin: 03/13/22 19:06 Dose: 40 mg Documented By: CHRIS Gabapentin (Gabapentin 300 Mg Capsule) 300 mg PO BEDTIME [facility] Last Admin: 03/13/22 19:06 Dose: 300 mg Documented By: CHRIS Metoprolol Succinate (Metoprolol Succinate Er 25 Mg Tab.Er.24h) 25 mg PO DAILY [facility]; Protocol Last Admin: 03/14/22 08:46 Dose: 25 mg Documented By: CHINA Mirabegron (Mirabegron 50 Mg Tab.Er.24h) 50 mg PO DAILY [facility] Last Admin: 03/14/22 08:46 Dose: 50 mg Documented By: CHINA Multivitamins/Vitamin C (Multivitamin Tablet) 1 tab PO DAILY [facility] Last Admin: 03/14/22 08:46 Dose: 1 tab Documented By: CHINA Omeprazole (Omeprazole 20 Mg Capsule.) 20 mg PO DAILY@0630 [facility] Last Admin: 03/14/22 06:07 Dose: 20 mg Documented By: CHRIS Oxycodone HCl (Oxycodone Hcl Immed Release 5 Mg Tablet) 5 mg PO Q4H PRN PRN Reason: Moderate Pain (Scale Score 5-6) Last Admin: 03/13/22 23:25 Dose: 5 mg Documented By: CHRIS Sodium Chloride (0.9 % Sodium Chloride Flush 3 Ml Syringe) 3 ml IVFLUSH QSHIFT [facility] Last Admin: 03/14/22 08:50 Dose: 3 ml Documented By: CHINA Zinc Sulfate (Zinc Sulfate 220 Mg Capsule) 220 mg PO BEDTIME [facility] Last Admin: 03/13/22 19:06 Dose: 220 mg Documented By: CHRIS Labs CBC & Chem 7: 03/12/22 05:41 03/12/22 05:41 Assessment and Plan (1) Alzheimer disease: Status: Acute Plan 81F with pmh dementia, htn, chronic back pain presented with ams alzheimers dementia with acute delerium improved, unclear cause of delerium, possibly due to new setting at assisted living b12, folate, tsh all WNL neuro eval PT appreciated - STR recommended htn continue toprol chronic back pain oxycodone prn dvt prophylaxis - lovenox full code reason for continued hospitalization: safe dispo planning Quality Stroke Does the patient have a stroke diagnosis?: No VTE Prior VTE?: No VTE Risk Level:: Medical - moderate - high VTE Device Contraindication: Treatment Not Indicated VTE Drug Contraindication: N/A - Med Ordered
--- NOTE | 2022-03-14 14:43 | MHC.CM.PN ---
STR's of choice do not have appropriate bed for patient. Daughter, Martha [phone] requesting patient go home with VNA/Home PT. Discussed PT report with daughter. She asked CM to reach out to MD and PT for recommendations. She provided CM permission to speak with [employer]. PT continues to recommend STR as patient is high fall risk and is 1 assist. MD agrees to broad STR search if daughter allows. SALVADOR spoke with Jesús [phone], of the [email or web address], patient receives assistance with showers x2 week, dressing in the a.m. and p.m. daily. Patient has to ambulate and transfer safely without hands on assistance, has her meals in the resident lunch room. Patient has fallen and is a high safety/fall risk being alone at this time. He shared they cannot keep her from going home but encourages having her get stronger before going back home. [facility] uses [facility] CM spoke with patient's daughter, Martha, regarding above information. She is in agreement to broad STR search. Other referrals made to [facility], [facility], [facility], [facility], and [facility]. informed of above happenings.
[2022-03-14 15:37] VITALS: BP 161/72; PULSE 98; RESP 16; TEMP 36.6; O2SAT 99
[2022-03-14] MEDS: oxyCODONE HCl Immed Release 5 MG TABLET PO ×2 (16:47→20:49)
[2022-03-14 20:00] VITALS: BP 151/63; PULSE 75; RESP 16; TEMP 36.7; O2SAT 96
[2022-03-14] MEDS: Zinc Sulfate 220 MG CAPSULE PO (20:49)
[2022-03-14] MEDS: Ascorbic Acid 500 MG TABLET PO (20:49)
[2022-03-14] MEDS: Gabapentin 300 MG CAPSULE PO (20:49)
[2022-03-14] MEDS: Enoxaparin Sodium 40 MG/0.4 ML SYRINGE SUBCUT (20:49)
[2022-03-14 23:38] VITALS: BP 150/70; PULSE 78; RESP 16; TEMP 36.7; O2SAT 96
[2022-03-15] MEDS: oxyCODONE HCl Immed Release 5 MG TABLET PO (03:29)
[2022-03-15 03:51] VITALS: BP 142/68; PULSE 81; RESP 16; TEMP 36.4; O2SAT 96
[2022-03-15] MEDS: Omeprazole 20 MG CAPSULE.DR PO (06:28)
[2022-03-15] MEDS: Mirabegron 50 MG TAB.ER.24H PO (07:26)
[2022-03-15] MEDS: Multivitamin TABLET 1 TAB PO (07:26)
[2022-03-15] MEDS: Metoprolol Succinate ER 25 MG TAB.ER.24H PO (07:26)
[2022-03-15] MEDS: 0.9 % Sodium Chloride Flush 3 ML SYRINGE IVFLUSH (07:29)
[2022-03-15 07:54] VITALS: BP 148/63; PULSE 68; RESP 18; TEMP 37.1; O2SAT 91
--- NOTE | 2022-03-15 11:24 | HO.PM.IMPN ---
Subjective Subjective Date of Service: 03/15/22 Interval History: Seen and evaluated this morning Reported feeling good overall and would like to speak to her children No reported overnight events Physical Exam Vital Signs: Vital Signs: Last Vital Signs Temp 98.7 F 03/15/22 07:54 Pulse 68 03/15/22 07:54 Resp 18 03/15/22 07:54 BP 148/63 H 03/15/22 07:54 Pulse Ox 91 L 03/15/22 07:54 O2 Del Method 03/15/22 07:54 BMI result Body Mass Index 22.6 Const: Other: Constitutional : Alert, interactive, not in distress Neck : Normal inspection, Supple Cardiovascular : RRR, no JVP, no lower extremity edema Respiratory : fair bilateral air entry, no crackles, wheezes or rhonchi Gastrointestinal: soft, lax, Normal bowel sounds, Non tender Skin : Warm, Dry Neurological : Alert & disoriented to time and place, No focal deficit , CN 2-12 within normal Objective Data Active Medications Acetaminophen (Acetaminophen 325 Mg Tablet) 650 mg PO Q6H PRN PRN Reason: Pain, Mild (Pain Scale 1-3) Last Admin: 03/14/22 20:49 Dose: 650 mg Documented By: CHRIS Ascorbic Acid (Ascorbic Acid 500 Mg Tablet) 500 mg PO BEDTIME [facility] Last Admin: 03/14/22 20:49 Dose: 500 mg Documented By: CHRIS Enoxaparin Sodium (Enoxaparin Sodium 40 Mg/0.4 Ml Syringe) 40 mg SUBCUT Q24H [facility] Last Admin: 03/14/22 20:49 Dose: 40 mg Documented By: CHRIS Gabapentin (Gabapentin 300 Mg Capsule) 300 mg PO BEDTIME [facility] Last Admin: 03/14/22 20:49 Dose: 300 mg Documented By: CHRIS Metoprolol Succinate (Metoprolol Succinate Er 25 Mg Tab.Er.24h) 25 mg PO DAILY [facility]; Protocol Last Admin: 03/15/22 07:26 Dose: 25 mg Documented By: CHINA Mirabegron (Mirabegron 50 Mg Tab.Er.24h) 50 mg PO DAILY [facility] Last Admin: 03/15/22 07:26 Dose: 50 mg Documented By: CHINA Multivitamins/Vitamin C (Multivitamin Tablet) 1 tab PO DAILY [facility] Last Admin: 03/15/22 07:26 Dose: 1 tab Documented By: CHINA Omeprazole (Omeprazole 20 Mg Capsule.) 20 mg PO DAILY@0630 [facility] Last Admin: 03/15/22 06:28 Dose: 20 mg Documented By: CHRIS Oxycodone HCl (Oxycodone Hcl Immed Release 5 Mg Tablet) 5 mg PO Q4H PRN PRN Reason: Moderate Pain (Scale Score 5-6) Last Admin: 03/15/22 03:29 Dose: 5 mg Documented By: CHRIS Sodium Chloride (0.9 % Sodium Chloride Flush 3 Ml Syringe) 3 ml IVFLUSH QSHIFT [facility] Last Admin: 03/15/22 07:29 Dose: 3 ml Documented By: CHINA Zinc Sulfate (Zinc Sulfate 220 Mg Capsule) 220 mg PO BEDTIME [facility] Last Admin: 03/14/22 20:49 Dose: 220 mg Documented By: CHRIS Labs CBC & Chem 7: 03/12/22 05:41 03/12/22 05:41 Assessment and Plan (1) Alzheimer disease: Status: Acute Plan 81F with pmh dementia, htn, chronic back pain presented with ams alzheimers dementia with acute delerium improved, unclear cause of delerium, possibly due to new setting at assisted living b12, folate, tsh all WNL neuro eval PT appreciated - STR recommended htn continue toprol chronic back pain oxycodone prn dvt prophylaxis - lovenox full code reason for continued hospitalization: safe dispo planning Quality Stroke Does the patient have a stroke diagnosis?: No VTE Prior VTE?: No VTE Risk Level:: Medical - moderate - high VTE Device Contraindication: Treatment Not Indicated VTE Drug Contraindication: N/A - Med Ordered
[2022-03-15 11:26] VITALS: BP 173/77; PULSE 72; RESP 18; TEMP 36.5; O2SAT 97
--- NOTE | 2022-03-15 12:21 | PM.DS ---
DS: Providers Provider Date of Service: 03/15/22 Date of admission: 03/11/22 20:32 Primary care physician: LUIS A Barry Consults: 03/11/22 20:32 Consult to Neurology Routine Consulting Provider: [facility] Reason for consultation: decline in mental status, ?dementia DS: Diagnosis Discharge Diagnosis (1) Alzheimer disease: Status: Acute (2) Altered mental status: Status: Acute DS: Summary Hospital Course Hospital Course: Admission note HPI 81F with pmh of chronic back pain, htn, dementia, brought in from assisted living by daughter for worsening mental status. at baseline patient pleasantly confused, oriented to self and place but not time and has poor short term memory. daughter states patient legs have been having increased swelling and weeping and that she has been increasingly confused and aggressive. in ED work up including labs, CTH, UA benign. Hospital course The patient was admitted for evaluation of altered mentation. Images including CT head were negative for any acute findings. No source of infection identified. Her delirium started to improve and believed to be possibly a result of change in the setting of her living condition. B12, folic acid and TSH were all normal. Evaluated by Neurology who believe her symptoms are secondary to Alzheimer disease. Evaluated by Physical therapy who recommended short-term rehab. As far as medicines are concerned, no disease modifying drug is available.? Medicines for behavioral symptoms might be useful if needed in the future. Time Spent with Patient Time attestation: Total time spent providing and/or coordinating discharge services: Discharge coordination time: Greater than 30 minutes Quality: Safe Use of Opioids Does Pt have an Active Cancer Diagnosis on the Problem List?: No Quality: Stroke Does the patient have a stroke diagnosis?: No Physical Exam Vital Signs: Vital Signs: Last Vital Signs Temp 97.7 F 03/15/22 11:26 Pulse 72 03/15/22 11:26 Resp 18 03/15/22 11:26 BP 173/77 H 03/15/22 11:26 Pulse Ox 97 03/15/22 11:26 O2 Del Method 03/15/22 11:26 BMI result Body Mass Index 22.6 Const: Other: Constitutional : Alert, interactive, not in distress Neck : Normal inspection, Supple Cardiovascular : RRR, no JVP, no lower extremity edema Respiratory : fair bilateral air entry,? no crackles, wheezes or rhonchi Gastrointestinal:? soft, lax, Normal bowel sounds, Non tender Skin : Warm, Dry Neurological : Alert & disoriented to time and place, No focal deficit DS: Data Imaging CT scan - head: Radiologist's impression: ITS Impressions Head CT 03/11/22 16:10 IMPRESSION: No acute intracranial pathology. Chest X-Ray 03/11/22 16:25 IMPRESSION: Blunting at the left lateral costophrenic angle questionable for pleural thickening or small left pleural effusion. Otherwise unremarkable exam. Cervical Spine CT 03/11/22 16:35 IMPRESSION: No fracture or dislocation. Stable postsurgical at C6-C7 and degenerative changes. Fleischner guidelines were followed. Discharge Plan Discharge Patient Disposition: [facility] Discharge Diagnosis: Dementia, Alzheimer disease Altered mentation Referrals: Thelma Obrien PA [Primary Care Provider] - 1 Week Discharge Medications: Continued metoprolol succinate 25 mg tablet extended release 24 hr 1 tab PO DAILY multivitamin Tablet 1 tab PO DAILY Myrbetriq 50 mg tablet extended release 24 hr 1 tab PO DAILY gabapentin 300 mg capsule 1 cap PO BEDTIME oxycodone 5 mg tablet 1 tab PO Q4H PRN (Reason: Moderate Pain (Scale Score 5-6)) zinc acetate 50 mg (zinc) Capsule 50 mg PO BEDTIME ascorbic acid (vitamin C) 500 mg Tablet 500 mg PO BEDTIME omeprazole 20 mg Capsule,Delayed Release(Dr/Ec) 20 mg PO DAILY@0630 Discontinued cephalexin 500 mg capsule 1 cap PO QID Discharge Orders: Discharge Order (Routine); Ordered 03/15/22 Ordered By: Joaquín Duque Diet: Advance to usual diet Activity on Discharge: As tolerated Stand Alone Forms: Patient Portal Discharge page Care Plan Goals: Read below Health Concerns: Read below Plan of Treatment: Read below Assessment: You were admitted to the hospital for evaluation of altered mentation. Blood work and images were negative for any acute findings. Evaluated by neurologist who believe your symptoms are secondary to Alzheimer dementia disease. Evaluated by Physical therapy who recommended short-term rehab stay.
[2022-03-15 12:57] LABS: COVID-19 Test Negative (Negative)
--- NOTE | 2022-03-15 13:53 | MHC.CM.PN ---
Addendum entered by Cassandra De Leon 03/15/22 14:02: CM SPOKE WITH PATIENT'S DAUGHTER, EL, SHE IS IN AGREEMENT WITH [facility] FOR HER MOM. Original Note: PATIENT'S DAUGHTER, EL, LEFT MESSAGE WITH CM HOUSE PAINTER HELPER REGARDING NOT WANTING MOM TO GO TO [facility]. CM CALLED EL AT [phone] AND LEFT A DETAILED MESSAGE REGARDING PATIENT BEING ACCEPTED INTO [facility] AND DISCHARGING THIS AFTERNOON AT 4:30 VIA AMBULANCE. CM LEFT OFFICE PHONE NUMBER FOR RETURN CALL.
--- NOTE | 2022-03-15 14:04 | MHC.CM.PN ---
PATIENT HAS BEEN MEDICALLY CLEARED FOR DISCHARGE TODAY GOING TO [facility] FOR STR VIA BLS AMBULANCE. NO 2ND IMM REQUIRED.
[2022-03-15 16:00] VITALS: BP 153/70; PULSE 76; RESP 17; TEMP 36.8; O2SAT 96
== END 2022-03-15 17:21 | disposition skilled nursing facility (03) ==
LOC: HO.ED 20:32 → HO.EDOVER 20:39 → HO.S3 21:10
PROVIDERS: Physician Assistant; Admitting Provider Internal Medicine; Emergency Provider Internal Medicine; PCP Physician Assistant Medical; Visit Provider Student in an Organized Health Care Education/Training Program
DX: G30.0 Alzheimer's disease with early onset (principal); F02.81 Dementia in other diseases classified elsewhere, unspecified severity, with behavioral disturbance; F05 Delirium due to known physiological condition; R41.82 Altered mental status, unspecified; M54.2 Cervicalgia; M54.50 Low back pain, unspecified; R07.89 Other chest pain; I10 Essential (primary) hypertension; Z20.822 Contact with and (suspected) exposure to COVID-19; Z79.899 Other long term (current) drug therapy
CPT/HCPCS: 36415; 70450; 71045; 72125; 80048; 80076; 81003; 82140; 82550; 82607; 82746; 83690; 83735; 83880; 84443; 84484; 85025; 85027; 86140; 87635; 93005; 96372; 97116; 97163; 99218; 99285; J1650

== ENCOUNTER 2022-03-21 03:13 | Observation (INO) | payer MEDICARE, SELFPAY ==
--- NOTE | ~2022-03-21 | XR_ITS ---
EXAMINATION: XR PELVIS CLINICAL INFORMATION: Fall with pain COMPARISON: None TECHNIQUE: AP view of the pelvis. FINDINGS: No fracture or dislocation. The hips are well aligned with mild degenerative change. The pelvic rim is intact. Mild degenerative change of the lower lumbar spine. Normal bowel gas pattern. Vascular calcifications. XR/XR pelvis 1-2V IMPRESSION: No fracture or malalignment.
--- NOTE | ~2022-03-21 | CT_ITS ---
EXAMINATION: NONCONTRAST HEAD CT NONCONTRAST CERVICAL SPINE CT INDICATION INFORMATION: Fall. Pain. COMPARISON: 03/11/2022 TECHNIQUE: Separate noncontrast CT examinations of the head and cervical spine were performed. Coronal and sagittal images were created for each examination at the technologist workstation. This CT examination was performed using dose optimization techniques as appropriate, variously including the following: *Automated exposure control *Adjustment of mA and/or kV according to patient size (this includes techniques or standardized protocols for targeted exams where dose is matched to indication/reason for exam; i.e. extremities or head) *Use of iterative reconstruction technique DLP: 958 mGy-cm FINDINGS: Head: There is no evidence of acute intracranial hemorrhage or territorial infarction. No abnormal mass effect or midline shift is seen. [place] to white matter differentiation is well preserved. No extra-axial fluid collections are identified. No hydrocephalus. Proportional prominence of the ventricles and sulcal spaces is consistent with mild volume loss. Patchy periventricular and deep white matter hypoattenuation is consistent with mild small vessel ischemic changes. No acute osseous or soft tissue abnormality. The mastoid air cells and visualized portions of the paranasal sinuses are well aerated. Cervical spine: Anterior fusion hardware with disc spacer at C6-C7. Partially visualized hardware in the thoracic spine posteriorly. There is anatomic alignment of the vertebral bodies and posterior elements. The atlantoaxial and atlantooccipital articulations are intact. Vertebral body heights are maintained. There is multilevel intervertebral disc space narrowing with endplate osteophyte formation and facet arthropathy. No evidence of acute fracture. No prevertebral soft tissue swelling. Visualized portions of the lung apices are unremarkable. The thyroid gland is unremarkable. CT/CT cervical spine wo IV con IMPRESSION: 1. No acute intracranial finding. 2. No fracture or malalignment of the cervical spine. Mild degenerative changes.
--- NOTE | ~2022-03-21 | CT_ITS ---
EXAMINATION: CT HEAD WITHOUT CONTRAST CLINICAL INFORMATION: Left-sided weakness. COMPARISON: None. TECHNIQUE: Contiguous axial imaging was performed from the skullbase to vertex without intravenous administration of contrast. Limited study with motion artifacts. This CT examination was performed using dose optimization techniques as appropriate, variously including the following: *Automated exposure control *Adjustment of mA and/or kV according to patient size (this includes techniques or standardized protocols for targeted exams where dose is matched to indication/reason for exam; i.e. extremities or head) *Use of iterative reconstruction technique DLP: 915 mGy-cm. FINDINGS: There is no evidence of acute intracranial hemorrhage or territorial infarction. No abnormal mass effect or midline shift is seen. [place] to white matter differentiation is well preserved. No extra-axial fluid collections are identified. There is moderate generalized parenchymal volume loss with concordant ex vacuo dilatation of the ventricles. Mild to moderate chronic white matter microangiopathy also evident. The osseous structures and soft tissues are normal. The mastoid air cells and visualized portions of the paranasal sinuses are well aerated. CT/CT head/brain wo IV con IMPRESSION: No acute intracranial hemorrhage or territorial infarction. Moderate generalized parenchymal volume loss and [id number] chronic white matter microangiopathy.
--- NOTE | ~2022-03-21 | XR_ITS ---
EXAMINATION: XR CHEST CLINICAL INFORMATION: Fall. Pain. COMPARISON: 03/11/2022 TECHNIQUE: Frontal view of the chest was obtained. FINDINGS: Thoracic spinal fusion hardware. The lungs are well expanded. There is no focal consolidation, edema, or effusion. No pneumothorax. Chronic blunting at the left costophrenic angle. The cardiomediastinal silhouette is within normal limits. No acute osseous abnormality. Chronic healed left lateral rib fractures. XR/XR chest 1V IMPRESSION: No acute pulmonary finding. No acute displaced fractures.
[2022-03-21 03:41] VITALS: BP 120/90; PULSE 140; PULSE 86; RESP 18; TEMP 36.4; O2SAT 100; O2SAT 92; BMI 23.8
--- NOTE | 2022-03-21 03:43 | ED.FALL ---
HPI - Fall General Chief Complaint: Fall Stated Complaint: FALL W/+LOC FROM SNF,+[facility] PER EMS Time Seen by Provider: 03/21/22 03:42 Source: EMS Mode of arrival: EMS Limitations: altered mental status History of Present Illness HPI Narrative: Patient 81 years old with history of hypertension chronic back pain dementia just discharged on 03/15 for increased confusion comes back from assisted living place as while going to the bathroom patient fell the unwitnessed fall, unknown down time patient was found on the floor questionable loss of consciousness has a skin tear on right lower extremity Related Data Home Medications Medication Instructions Recorded Confirmed metoprolol succinate 25 mg 1 tab PO DAILY 01/19/22 03/12/22 tablet,extended release 24 hr mirabegron 50 mg tablet,extended 1 tab PO DAILY 01/19/22 03/12/22 release 24 hr (Myrbetriq) multivitamin 1 tab PO DAILY 01/19/22 03/12/22 gabapentin 300 mg capsule 1 cap PO BEDTIME 03/11/22 03/12/22 oxycodone 5 mg tablet 1 tab PO Q4H PRN Moderate Pain 03/11/22 03/12/22 (Scale Score 5-6) ascorbic acid (vitamin C) 500 mg 500 mg PO BEDTIME 03/12/22 03/12/22 tablet omeprazole 20 mg capsule,delayed 20 mg PO DAILY@0630 03/12/22 03/12/22 release zinc acetate 50 mg (zinc) capsule 50 mg PO BEDTIME 03/12/22 03/12/22 Allergies Allergy/AdvReac Type Severity Reaction Status Date / Time Unable to Assess Allergy Verified 03/25/21 10:54 Review of Systems Review of Systems: Yes all other systems are reviewed and are negative [facility] Past Medical History Medical History Chronic back pain Dementia HTN (hypertension) Squamous cell skin cancer Surgical History H/O Spinal surgery H/O: hysterectomy Family History Family History Mother Breast cancer Social History Social History Housing: House Patient Tobacco Use Status: Never used Tobacco Advance Directives: Yes Advance Directives on File: Yes Advance Directives Date on File: 01/19/22 service: No Current occupational status: retired Physical Exam Vital Signs: Vital Signs: Last Vital Signs Temp 97.6 F 03/21/22 03:41 Pulse 86 03/21/22 03:41 Resp 18 03/21/22 03:41 BP 120/90 H 03/21/22 03:41 Pulse Ox 100 03/21/22 03:41 O2 Del Method 03/21/22 03:41 Oxygen Flow Rate 4 03/21/22 03:41 BMI result Body Mass Index 23.8 Appearance: Alert. Oriented X2. No acute distress. Eyes: PERRLA, No Nystagmus ENT: Pharynx normal. Oral Mucosa moist Neck: Normal inspection. Neck supple. In cervical collar CVS: Normal heart rate and rhythm. Pulses normal. Respiratory: No respiratory distress. Equal air entry bilateral, no wheezing/rales/rhonchi Abdomen: Soft and nontender. Bowel sounds are present, no mass palpable, no CVA tenderness Skin: Skin warm and dry. Normal skin color. Normal skin turgor. Extremities: No lower extremity edema. No calf tenderness large skin tear on right quintero, pelvis stable no obvious deformity of lower extremity or upper upper extremity Neuro: Oriented X 2. Moving all 4 extremities Procedures Laceration Laceration 1: Site: lower extremity (quintero) Side (If applicable): right Size (cm): 15 Description: flap Pre-repair: wound explored, irrigated extensively and deep structures intact Skin layer closed with: other (steristrips) MDM - Fall MDM Narrative Medical decision making narrative: 06:00 AM Patient stable post mechanical fall with dementia CT scan head and C-spine negative x-ray pelvis and chest x-ray negative for acute had a big skin tear on the right leg which was clean and Steri-Strips were applied. Lab workup showed high sensitive troponin of 150.3 which was normal on last visit on 03/11 patient denies any pain EKG without any ischemic changes patient's CPK was also elevated to 945 WBC count 13.9 UA was negative elevated troponin and CK likely from been on floor for some time. Will give patient IV fluids recheck troponin and CK ambulate in the ER and plan to discharge to halfway instead of assisted living, will consult case management Lab Data Attestation: I reviewed the patient's lab results. Result diagrams: 03/21/22 04:21 03/21/22 04:21 Labs: Lab Results 03/21/22 03/21/22 03/21/22 Range/Units 04:21 04:21 04:21 WBC 13.9 H (4.8-10.8) X10*3/uL RBC 3.81 L D (4.20-5.50) X10*6/uL Hgb 11.8 L D (12.0-16.0) g/dl Hct 35.9 L D (37.0-47.0) % MCV 94.2 (80.0-98.0) fL MCH 31.0 (27.0-33.0) pg MCHC 32.9 (31.0-35.0) g/dl RDW 12.7 (11.0-16.0) % Plt Count 249 (160-400) X10*3/uL MPV 8.5 L (9.4-12.3) fL Immature Gran % (Auto) 0.5 H (0.0-0.4) % Neut % (Auto) 88.2 H (45-73) % Lymph % (Auto) 4.1 L (20-40) % [place] % (Auto) 6.9 (2-11) % Eos % (Auto) 0.0 (0-4) % Baso % (Auto) 0.3 (0-2) % Lymph # (Auto) 0.6 L (1.2-4.9) X10*3/uL [place] # (Auto) 1.0 (0.1-1.2) X10*3/uL Eos # (Auto) 0.0 (0.0-0.4) X10*3/uL Baso # (Auto) 0.0 (0.0-0.2) X10*3/uL Abs Immat Gran (auto) 0.07 H (0.00-0.03) X10*3/uL Absolute Neuts (auto) 12.3 H (2.0-8.3) x10*3/uL Absolute Nucleated RBC 0.000 (0.0-0.012) X10*3/uL Nucleated RBC % (auto) 0.0 (0.0-0.2) /100WBC Sodium 140 (135-145) mmol/L Potassium 3.9 (3.3-5.1) mmol/L Chloride 101 (96-108) mmol/L Carbon Dioxide 27 (22-29) mmol/L Anion Gap 16 (12-20) BUN 15 (9-16) mg/dL Creatinine 0.66 (0.5-1.4) mg/dL Estim Creat Clear Calc 63.6 Estimated GFR > 60 Random Glucose 117 H (60-115) mg/dL Calcium 9.5 D (8.4-10.2) mg/dL Total Bilirubin 0.5 (0.0-1.0) mg/dL AST 36 H D (5-31) U/L ALT 27 (0-31) U/L Alkaline Phosphatase 88 (39-117) U/L Total Creatine Kinase 945 H D (26-140) U/L Troponin I High Sens 150.3 H* D (<3.5-17.0) ng/L Total Protein 6.6 (6.5-8.0) g/dL Albumin 4.2 (3.5-5.0) g/dL Urine Color Urine Appearance Urine pH (5.0-9.0) Ur Specific [place] (1.005-1.025) Urine Protein (Neg-Trace) mg/dL Urine Glucose (UA) (Negative) mg/dL Urine Ketones (Negative) mg/dL Urine Blood (Negative) Urine Nitrite (Negative) Ur Leukocyte Esterase (Negative) 03/21/22 Range/Units 06:00 WBC (4.8-10.8) X10*3/uL RBC (4.20-5.50) X10*6/uL Hgb (12.0-16.0) g/dl Hct (37.0-47.0) % MCV (80.0-98.0) fL MCH (27.0-33.0) pg MCHC (31.0-35.0) g/dl RDW (11.0-16.0) % Plt Count (160-400) X10*3/uL MPV (9.4-12.3) fL Immature Gran % (Auto) (0.0-0.4) % Neut % (Auto) (45-73) % Lymph % (Auto) (20-40) % [place] % (Auto) (2-11) % Eos % (Auto) (0-4) % Baso % (Auto) (0-2) % Lymph # (Auto) (1.2-4.9) X10*3/uL [place] # (Auto) (0.1-1.2) X10*3/uL Eos # (Auto) (0.0-0.4) X10*3/uL Baso # (Auto) (0.0-0.2) X10*3/uL Abs Immat Gran (auto) (0.00-0.03) X10*3/uL Absolute Neuts (auto) (2.0-8.3) x10*3/uL Absolute Nucleated RBC (0.0-0.012) X10*3/uL Nucleated RBC % (auto) (0.0-0.2) /100WBC Sodium (135-145) mmol/L Potassium (3.3-5.1) mmol/L Chloride (96-108) mmol/L Carbon Dioxide (22-29) mmol/L Anion Gap (12-20) BUN (9-16) mg/dL Creatinine (0.5-1.4) mg/dL Estim Creat Clear Calc Estimated GFR Random Glucose (60-115) mg/dL Calcium (8.4-10.2) mg/dL Total Bilirubin (0.0-1.0) mg/dL AST (5-31) U/L ALT (0-31) U/L Alkaline Phosphatase (39-117) U/L Total Creatine Kinase (26-140) U/L Troponin I High Sens (<3.5-17.0) ng/L Total Protein (6.5-8.0) g/dL Albumin (3.5-5.0) g/dL Urine Color Yellow Urine Appearance Clear Urine pH 6.5 (5.0-9.0) Ur Specific [place] 1.010 (1.005-1.025) Urine Protein 300 (3+) H (Neg-Trace) mg/dL Urine Glucose (UA) Negative (Negative) mg/dL Urine Ketones Negative (Negative) mg/dL Urine Blood Trace H (Negative) Urine Nitrite Negative (Negative) Ur Leukocyte Esterase Negative (Negative) ECG Data Attestation: I personally reviewed and interpreted this ECG as follows: Interpretation: Normal sinus rhythm heart rate 85 beats per minute normal interval normal axis no acute ischemic changes impression normal EKG Discharge Plan Discharge Clinical Impression: Fall, Skin tear of lower leg without complication Patient Disposition: Still a Patient Prescriptions: No Action metoprolol succinate 25 mg tablet extended release 24 hr 1 tab PO DAILY multivitamin Tablet 1 tab PO DAILY Myrbetriq 50 mg tablet extended release 24 hr 1 tab PO DAILY gabapentin 300 mg capsule 1 cap PO BEDTIME oxycodone 5 mg tablet 1 tab PO Q4H PRN (Reason: Moderate Pain (Scale Score 5-6)) zinc acetate 50 mg (zinc) Capsule 50 mg PO BEDTIME ascorbic acid (vitamin C) 500 mg Tablet 500 mg PO BEDTIME omeprazole 20 mg Capsule,Delayed Release(Dr/Ec) 20 mg PO DAILY@0630
--- NOTE | 2022-03-21 03:52 | ECG_ITS ---
Test Reason : FALL Blood Pressure : / mmHG Vent. Rate : 108 BPM Atrial Rate : 108 BPM P-R Int : 178 ms QRS Dur : 078 ms QT Int : 376 ms P-R-T Axes : 000 002 -23 degrees QTc Int : 503 ms Sinus tachycardia with Fusion complexes Marked ST abnormality, possible inferior subendocardial injury Abnormal ECG When compared with ECG of 11-MAR-2022 14:18, Fusion complexes are now Present Borderline criteria for Inferior infarct are no longer Present ST now depressed in Inferior leads T wave inversion more evident in Inferior leads QT has lengthened Referred By: Kyrie Reynolds Electronically Signed By:
[2022-03-21 04:25] LABS: Basophils Percent Auto 0.3 % (0-2); Hematocrit 35.9 % (37.0-47.0); Hemoglobin 11.8 g/dl (12.0-16.0); Imm Gran Abs Auto 0.07 X10*3/uL (0.00-0.03); Imm Gran Pct Auto 0.5 % (0.0-0.4); Lymphocytes Absolute Auto 0.6 X10*3/uL (1.2-4.9); Lymphocytes Percent Auto 4.1 % (20-40); MANUAL DIFF FLAG NO; Mean Corpuscular HGB Conc 32.9 g/dl (31.0-35.0); Mean Corpuscular Volume 94.2 fL (80.0-98.0); Mean Platelet Volume 8.5 fL (9.4-12.3); Monocytes Percent Auto 6.9 % (2-11); Neutrophils Absolute Auto 12.3 x10*3/uL (2.0-8.3); Neutrophils Percent Auto 88.2 % (45-73); Platelet Count 249 X10*3/uL (160-400); Red Blood Count 3.81 X10*6/uL (4.20-5.50); Red Cell Distribution Width 12.7 % (11.0-16.0); White Blood Count 13.9 X10*3/uL (4.8-10.8)
[2022-03-21 04:48] LABS: Alanine Aminotransferase 27 U/L (0-31); Albumin Level 4.2 g/dL (3.5-5.0); Alkaline Phosphatase 88 U/L (39-117); Anion Gap 16 (12-20); Aspartate Amino Transferase 36 U/L (5-31); Bilirubin Total 0.5 mg/dL (0.0-1.0); Blood Urea Nitrogen 15 mg/dL (9-16); Calcium 9.5 mg/dL (8.4-10.2); Carbon Dioxide 27 mmol/L (22-29); Chloride 101 mmol/L (96-108); Creatinine Clr Calc Pharmacy 63.6; Estimated Glomerular Filt Rate > 60; Glucose Random 117 mg/dL (60-115); Potassium 3.9 mmol/L (3.3-5.1); Sodium 140 mmol/L (135-145); Total Protein 6.6 g/dL (6.5-8.0)
[2022-03-21 04:49] LABS: Troponin-I High Sensitivity 150.3 ng/L (<3.5-17.0)
--- NOTE | 2022-03-21 04:55 | PC.NURSE ---
Pt has deep tissue wound, large open area to R proximal tibia, approximately 12 inches long. Area seemed to be part of previous skin tear but appears to have been injured during the fall. Wound area cleansed and dressed using steri-strips, nonstick pad & gauze by Dr. Guerrero. Pt tolerated well.
[2022-03-21 06:16] LABS: Appearance Urine Clear; Color Urine Yellow; Glucose Urine UA Negative (Negative); Leukocyte Esterase Urine Negative (Negative); Nitrite Urine Negative (Negative); PH 6.5 (5.0-9.0); UMIC TRIGGER UACC YES; Urine Blood Trace (Negative); Urine Ketones Negative (Negative); Urine Protein 300 (3+) mg/dL (Neg-Trace)
[2022-03-21] MEDS: 0.9 % Sodium Chloride 1,000 ML 999 ML IV (06:38)
--- NOTE | 2022-03-21 06:50 | PC.NURSE ---
SPOKE WITH DAUGHTER ON PHONE - DAUGHTER STATES SHE WOULD LIKE PT/CM CONSULT FOR HER MOTHER. PATIENT LIV[facility] AT [facility] AND FAMILY WOULD LIKE A FACILITY WITH MORE INVOLVED CARE. NOTIFIED.
[2022-03-21 07:05] LABS: Bacteria Urine 4+ (None Seen); Hyaline Casts Urine 0-2 /LPF (0-2); Squamous Epithelial Cell Urine 0-2 /HPF (0-2); WBC Urine 0-5 /HPF (0-5)
[2022-03-21 07:08] LABS: Troponin-I High Sensitivity 248.4 ng/L (<3.5-17.0)
[2022-03-21 07:12] VITALS: BP 183/82; PULSE 97; RESP 16; TEMP 36.7; O2SAT 97
[2022-03-21] MEDS: Aspirin 81 MG TAB.CHEW 162 MG PO (07:23)
[2022-03-21] MEDS: 0.9 % Sodium Chloride 1,000 ML 100 ML IVCONT ×2 (07:44→16:49)
[2022-03-21 07:56] LABS: COVID-19 Test Negative (Negative)
--- NOTE | 2022-03-21 08:02 | PC.NURSE ---
pt cleaned and bedding changed. purwick placed per rn order
--- NOTE | 2022-03-21 08:37 | PHA.MEDREC ---
Pharmacy Consult ? Medication Reconciliation Pharmacy has completed the medication reconciliation.
--- NOTE | 2022-03-21 08:53 | PC.NURSE ---
Dr. Kim instructed not to draw CPK
--- NOTE | 2022-03-21 09:22 | PM.IMHP ---
History of Present Illness Date of Service: 03/21/22 Chief Complaint: fall 81F with pmh of chronic back pain, htn, alzheimers dementia, was brought in from assisted living after being found on the floor. fall was unwitnessed, patient is poor historian and cannot recall fall. unknown down time, reported positive LOC and head strike, though patient may have just fallen asleep on the ground. noted to have reinjured skin tear on right quintero. in ED found to have no significant injury other than right leg skin tear. labs significant for mild troponin delta 150 to 248. cpk 945. EKG initially with inferior lead ST abnormality, repeat normal, denies chest pain. Review of Systems Review of Systems: Constitutional: Denies fever, denies Chills Eyes: denies blurry vision ENT: denies sore throat CVS: denies chest pain Respiratory: Denies dyspnea GI: no abdominal pain : denies dysuria MSK: denies neck pain Skin: denies rash Neuro: denies specific motor weakness Psych: denies suicidal ideation Endocrine: denies heat/cold intolerance Hematologic: denies easy bleeding Allergy: denies hives [facility] Medical History Chronic back pain Dementia HTN (hypertension) Squamous cell skin cancer Family History Mother Breast cancer Surgical History H/O Spinal surgery H/O: hysterectomy Social History Housing: House Patient Tobacco Use Status: Never used Tobacco Advance Directives: Yes Advance Directives on File: Yes Advance Directives Date on File: 01/19/22 service: No Current occupational status: retired Meds Allergies Allergy/AdvReac Type Severity Reaction Status Date / Time Unable to Assess Allergy Verified 03/25/21 10:54 Active Medications: Current Medications Ascorbic Acid (Ascorbic Acid 500 Mg Tablet) 500 mg PO BEDTIME SUJIT Bisacodyl (Bisacodyl 10 Mg Supp.Rect) [address] DAILY PRN PRN Reason: Constipation Docusate Sodium (Docusate Sodium 100 Mg Capsule) 100 mg PO BID SUJIT Gabapentin (Gabapentin 300 Mg Capsule) 300 mg PO BEDTIME SUJIT Sodium Chloride (Ns) 1,000 mls @ 100 mls/hr IVCONT .Q10H SUJIT Last Admin: 03/21/22 07:44 Dose: 100 mls/hr Metoprolol Succinate (Metoprolol Succinate Er 25 Mg Tab.Er.24h) 25 mg PO DAILY [facility]; Protocol Mirabegron (Mirabegron 50 Mg Tab.Er.24h) 50 mg PO DAILY [facility] Multivitamins/Vitamin C (Multivitamin Tablet) 1 tab PO DAILY [facility] Non-Formulary Medication (Lactobacillus Rhamnosus Gg [Culturelle]) 1 cap PO BID [facility] Omeprazole (Omeprazole 20 Mg Capsule.Dr) 20 mg PO DAILY@0630 [facility] Oxycodone HCl (Oxycodone Hcl Immed Release 5 Mg Tablet) 5 mg PO Q4H PRN PRN Reason: moderate pain Pharmacy Consult (Consult Rx Perform Med Rec) 1 each MISCELLANE ONCE PRN PRN Reason: Consult order Polyethylene Glycol (Polyethylene Glycol 3350 17 Gm Powd.Pack) 17 gm PO DAILY [facility] Senna (Sennosides 8.6 Mg Tablet) 8.6 mg PO BEDTIME PRN PRN Reason: Constipation Home Medications Medication Instructions Recorded Confirmed Last Taken Type metoprolol succinate 25 mg 1 tab PO DAILY 01/19/22 03/21/22 03/11/22 History tablet,extended release 24 hr mirabegron 50 mg tablet,extended 1 tab PO DAILY 01/19/22 03/21/22 03/11/22 History release 24 hr (Myrbetriq) multivitamin 1 tab PO DAILY 01/19/22 03/21/22 03/11/22 History ascorbic acid (vitamin C) 500 mg 500 mg PO BEDTIME 03/12/22 03/21/22 03/11/22 History tablet omeprazole 20 mg capsule,delayed 20 mg PO DAILY@0630 03/12/22 03/21/22 03/11/22 History release Lactobacillus rhamnosus GG 10 1 cap PO BID 03/21/22 03/21/22 Unknown History billion cell capsule (Culturelle) acetaminophen 500 mg tablet 1,000 mg PO TID PRN Pain 03/21/22 03/21/22 Unknown History bisacodyl 10 mg rectal suppository [address] DAILY PRN Constipation 03/21/22 03/21/22 Unknown History docusate sodium 100 mg capsule 100 mg PO BID 03/21/22 03/21/22 Unknown History (Colace) gabapentin 300 mg capsule 300 mg PO BEDTIME 03/21/22 03/21/22 Unknown History lidocaine HCl 4 % topical cream 1 appl topical QID PRN Pain 03/21/22 03/21/22 Unknown History (Aspercreme (lidocaine HCl)) oxycodone 5 mg tablet 5 mg PO Q4H PRN Pain 03/21/22 03/21/22 Unknown History polyethylene glycol 3350 17 17 g PO DAILY 03/21/22 03/21/22 Unknown History gram/dose oral powder (Miralax) sennosides 8.6 mg tablet (senna) 8.6 mg PO BEDTIME PRN Constipation 03/21/22 03/21/22 Unknown History sodium phosphates 19 gram-[address] DAILY PRN Constipation 03/21/22 03/21/22 Unknown History gram/118 mL enema (Fleet Enema) sulfamethoxazole 800 1 tab PO BID 03/21/22 03/21/22 Unknown History mg-trimethoprim 160 mg tablet (Bactrim DS) Physical Exam Vital Signs and Narrative: Vital Signs: Last Vital Signs Temp 98.1 F 03/21/22 07:12 Pulse 97 03/21/22 07:12 Resp 16 03/21/22 07:12 BP 183/82 H 03/21/22 07:12 Pulse Ox 97 03/21/22 07:12 O2 Del Method 03/21/22 07:12 Oxygen Flow Rate 4 03/21/22 03:41 BMI result Body Mass Index 23.8 General: no acute distress HEENT: atraumatic Neck: normal to visual inspection CVS: S1, S2, RRR Resp: CTA bilateral Chest: non tender GI: soft, non tender, non distended : no CVA tenderness Skin: no rashes Extremities: no edema Neuro: Oriented X1, grossly intact Psych: cooperative Results Labs CBC and Chem 7: 03/21/22 04:21 03/21/22 04:21 Labs: Laboratory Results - last 24 hr 03/21/22 03/21/22 03/21/22 04:21 04:21 06:00 MCV 94.2 MCH 31.0 MCHC 32.9 RDW 12.7 Plt Count 249 MPV 8.5 L Immature Gran % (Auto) 0.5 H Neut % (Auto) 88.2 H Lymph % (Auto) 4.1 L [place] % (Auto) 6.9 Eos % (Auto) 0.0 Baso % (Auto) 0.3 Lymph # (Auto) 0.6 L [place] # (Auto) 1.0 Eos # (Auto) 0.0 Baso # (Auto) 0.0 Abs Immat Gran (auto) 0.07 H Absolute Neuts (auto) 12.3 H Absolute Nucleated RBC 0.000 Nucleated RBC % (auto) 0.0 Anion Gap 16 Estim Creat Clear Calc 63.6 Estimated GFR > 60 Random Glucose 117 H Calcium 9.5 D Total Bilirubin 0.5 AST 36 H D ALT 27 Alkaline Phosphatase 88 Total Creatine Kinase 945 H D Total Protein 6.6 Albumin 4.2 Urine Color Yellow Urine Appearance Clear Urine pH 6.5 Ur Specific [place] 1.010 Urine Protein 300 (3+) H Urine Glucose (UA) Negative Urine Ketones Negative Urine Blood Trace H Urine Nitrite Negative Ur Leukocyte Esterase Negative Urine RBC 3-5 H Urine WBC 0-5 Ur Squamous Epith Cells 0-2 Urine Bacteria 4+ Hyaline Casts 0-2 COVID-19 (TALIB) COVID-19 [employer] 03/21/22 07:28 MCV MCH MCHC RDW Plt Count MPV Immature Gran % (Auto) Neut % (Auto) Lymph % (Auto) [place] % (Auto) Eos % (Auto) Baso % (Auto) Lymph # (Auto) [place] # (Auto) Eos # (Auto) Baso # (Auto) Abs Immat Gran (auto) Absolute Neuts (auto) Absolute Nucleated RBC Nucleated RBC % (auto) Anion Gap Estim Creat Clear Calc Estimated GFR Random Glucose Calcium Total Bilirubin AST ALT Alkaline Phosphatase Total Creatine Kinase Total Protein Albumin Urine Color Urine Appearance Urine pH Ur Specific [place] Urine Protein Urine Glucose (UA) Urine Ketones Urine Blood Urine Nitrite Ur Leukocyte Esterase Urine RBC Urine WBC Ur Squamous Epith Cells Urine Bacteria Hyaline Casts COVID-19 (TALIB) Negative COVID-19 Clin Com See Note Imaging Radiologist's Impressions: Impressions Cervical Spine CT 03/21/22 04:05 IMPRESSION: 1. No acute intracranial finding. 2. No fracture or malalignment of the cervical spine. Mild degenerative changes. Head CT 03/21/22 04:05 IMPRESSION: 1. No acute intracranial finding. 2. No fracture or malalignment of the cervical spine. Mild degenerative changes. Chest X-Ray 03/21/22 05:20 IMPRESSION: No acute pulmonary finding. No acute displaced fractures. Pelvis X-Ray 03/21/22 05:20 IMPRESSION: No fracture or malalignment. Assessment and Plan (1) Fall: Status: Acute Plan 81F with pmh dementia, htn, chronic back pain presented with?fall, found to have questionable ekg changes and elevated delta troponin fall complicated by elevated delta troponin and questionable EKG changes computer report of EKG mentions resolved inferior ST changes, initial EKG not scanned ?ACS vs mild rhabdomyolosis follow up cpk and troponin cardio eval PT eval HTN toprol chronic back pain oxy prn alzheimers dementia at baseline dvt prophylaxis - lovenox full code Quality Stroke Does the patient have a stroke diagnosis?: No VTE Prior VTE?: No VTE Risk Level:: Medical - moderate - high VTE Device Contraindication: Treatment Not Indicated VTE Drug Contraindication: N/A - Med Ordered
[2022-03-21 09:51] LABS: Troponin-I High Sensitivity 286.7 ng/L (<3.5-17.0)
[2022-03-21 10:24] VITALS: BP 164/81; PULSE 86; RESP 16; TEMP 36.7; O2SAT 98
--- NOTE | 2022-03-21 10:28 | PC.NURSE ---
Dr. Chacko of critical lab. Also notified about patients blood pressure.
[2022-03-21] MEDS: Enoxaparin Sodium 40 MG/0.4 ML SYRINGE SUBCUT (10:45)
[2022-03-21 16:00] VITALS: BP 146/62; PULSE 93; RESP 22; TEMP 37.1; O2SAT 95
--- NOTE | 2022-03-21 16:14 | P.CONCA_ITS ---
History of Present Illness History of Present Illness Date of Service: 03/21/22 Requesting physician: Juan Carlos Mack Consult reason: troponin elevation Chief complaint: Fall, rhabdo Narrative: I was consulted to see Mackenzie in cardiology consultation due to minimally elevated troponins. There is slight delta to the troponin. Patient was brought to the emergency room from assisted living because of being found on the floor. Patient does not recall how she got on the floor but recalls falling down. She had no cardiovascular symptoms prior to falling down as much as she can recall. However she has no memory of afterwards. She does have underlying dementia hypertension chronic back pain. As per the friend was present at bedside this is a 3rd fall in the last 2 months. She had elevated CPK and minimally elevated troponin with some delta. Initially it was felt that she had EKG changes however I reviewed multiple EKGs and no significant ST T wave changes. She currently does not have any chest pain. Review of Systems Review of Systems: Yes Unobtainable due to mental status Neurologic: Reports confusion Psychiatric: Psychiatric: Reports confusion PMFSH Past Medical History Medical History Chronic back pain Dementia HTN (hypertension) Squamous cell skin cancer Family History Family History Mother Breast cancer Surgical History Surgical History H/O Spinal surgery H/O: hysterectomy Social History Social History Housing: House Patient Tobacco Use Status: Never used Tobacco Advance Directives: Yes Advance Directives on File: Yes Advance Directives Date on File: 01/19/22 service: No Current occupational status: retired Meds Allergies Allergy/AdvReac Type Severity Reaction Status Date / Time Unable to Assess Allergy Verified 03/25/21 10:54 Active Medications: Current Medications Ascorbic Acid (Ascorbic Acid 500 Mg Tablet) 500 mg PO BEDTIME SUJIT Bisacodyl (Bisacodyl 10 Mg Supp.Rect) 10 mg LA DAILY PRN PRN Reason: Constipation Docusate Sodium (Docusate Sodium 100 Mg Capsule) 100 mg PO BID SUJIT Enoxaparin Sodium (Enoxaparin Sodium 40 Mg/0.4 Ml Syringe) 40 mg SUBCUT Q24H SUJIT Last Admin: 03/21/22 10:45 Dose: 40 mg Gabapentin (Gabapentin 300 Mg Capsule) 300 mg PO BEDTIME [facility] Sodium Chloride (Ns) 1,000 mls @ 100 mls/hr IVCONT .Q10H [facility] Last Admin: 03/21/22 07:44 Dose: 100 mls/hr Metoprolol Succinate (Metoprolol Succinate Er 25 Mg Tab.Er.24h) 25 mg PO DAILY [facility]; Protocol Mirabegron (Mirabegron 50 Mg Tab.Er.24h) 50 mg PO DAILY [facility] Multivitamins/Vitamin C (Multivitamin Tablet) 1 tab PO DAILY [facility] Omeprazole (Omeprazole 20 Mg Capsule.Dr) 20 mg PO DAILY@0630 [facility] Oxycodone HCl (Oxycodone Hcl Immed Release 5 Mg Tablet) 5 mg PO Q4H PRN PRN Reason: moderate pain Pharmacy Consult (Consult Rx Perform Med Rec) 1 each MISCELLANE ONCE PRN PRN Reason: Consult order Polyethylene Glycol (Polyethylene Glycol 3350 17 Gm Powd.Pack) 17 gm PO DAILY [facility] Senna (Sennosides 8.6 Mg Tablet) 8.6 mg PO BEDTIME PRN PRN Reason: Constipation Sodium Chloride (0.9 % Sodium Chloride Flush 3 Ml Syringe) 3 ml IVFLUSH QSHIFT [facility] Home Medications Medication Instructions Recorded Confirmed Last Taken Type metoprolol succinate 25 mg 1 tab PO DAILY 01/19/22 03/21/22 03/11/22 History tablet,extended release 24 hr mirabegron 50 mg tablet,extended 1 tab PO DAILY 01/19/22 03/21/22 03/11/22 History release 24 hr (Myrbetriq) multivitamin 1 tab PO DAILY 01/19/22 03/21/22 03/11/22 History ascorbic acid (vitamin C) 500 mg 500 mg PO BEDTIME 03/12/22 03/21/22 03/11/22 History tablet omeprazole 20 mg capsule,delayed 20 mg PO DAILY@0630 03/12/22 03/21/22 03/11/22 History release Lactobacillus rhamnosus GG 10 1 cap PO BID 03/21/22 03/21/22 Unknown History billion cell capsule (Culturelle) acetaminophen 500 mg tablet 1,000 mg PO TID PRN Pain 03/21/22 03/21/22 Unknown History bisacodyl 10 mg rectal suppository 10 mg LA DAILY PRN Constipation 03/21/22 03/21/22 Unknown History docusate sodium 100 mg capsule 100 mg PO BID 03/21/22 03/21/22 Unknown History (Colace) gabapentin 300 mg capsule 300 mg PO BEDTIME 03/21/22 03/21/22 Unknown History lidocaine HCl 4 % topical cream 1 appl topical QID PRN Pain 03/21/22 03/21/22 Unknown History (Aspercreme (lidocaine HCl)) oxycodone 5 mg tablet 5 mg PO Q4H PRN Pain 03/21/22 03/21/22 Unknown History polyethylene glycol 3350 17 17 g PO DAILY 03/21/22 03/21/22 Unknown History gram/dose oral powder (Miralax) sennosides 8.6 mg tablet (senna) 8.6 mg PO BEDTIME PRN Constipation 03/21/22 03/21/22 Unknown History sodium phosphates 19 gram-7 118 ml LA DAILY PRN Constipation 03/21/22 03/21/22 Unknown History gram/118 mL enema (Fleet Enema) sulfamethoxazole 800 1 tab PO BID 03/21/22 03/21/22 Unknown History mg-trimethoprim 160 mg tablet (Bactrim DS) Physical Exam Vital Signs: Vital Signs: Last Vital Signs Temp 98.7 F 03/21/22 16:00 Pulse 93 03/21/22 16:00 Resp 22 H 03/21/22 16:00 BP 146/62 H 03/21/22 16:00 Pulse Ox 95 03/21/22 16:00 O2 Del Method 03/21/22 16:00 Oxygen Flow Rate 4 03/21/22 03:41 BMI result Body Mass Index 23.8 Const: General: cooperative, comfortable, no acute distress, alert, awake and confusion Nutritional Appearance: thin Orientation/consciousness: confusion HEENT: Head: Yes normocephalic and Yes atraumatic Neck: Neck: Yes trachea midline, Yes supple and Yes no JVD Resp: Effort & Inspection: normal respiratory effort Auscultation: clear to auscultation bilaterally Cardio: Jugular venous distension: no JVD Palpation: normal PMI Rate: regular rate Rhythm: regular rhythm Heart sounds: S1 normal heart sound present, S2 normal heart sound present, no click, no gallops, no murmurs and no rubs GI: Auscultation: normal bowel sounds Skin: General skin exam: dry skin, ecchymosis and Excoriation Neuro: General: no focal motor deficits and confusion Extrem: General: Yes no clubbing, cyanosis or edema Objective Labs and Meds Result diagrams: 03/21/22 04:21 03/21/22 04:21 Lab results: Laboratory Results - last 24 hr 03/21/22 03/21/22 03/21/22 04:21 04:21 04:21 WBC 13.9 H RBC 3.81 L D Hgb 11.8 L D Hct 35.9 L D MCV 94.2 MCH 31.0 MCHC 32.9 RDW 12.7 Plt Count 249 MPV 8.5 L Immature Gran % (Auto) 0.5 H Neut % (Auto) 88.2 H Lymph % (Auto) 4.1 L [place] % (Auto) 6.9 Eos % (Auto) 0.0 Baso % (Auto) 0.3 Lymph # (Auto) 0.6 L [place] # (Auto) 1.0 Eos # (Auto) 0.0 Baso # (Auto) 0.0 Abs Immat Gran (auto) 0.07 H Absolute Neuts (auto) 12.3 H Absolute Nucleated RBC 0.000 Nucleated RBC % (auto) 0.0 Sodium 140 Potassium 3.9 Chloride 101 Carbon Dioxide 27 Anion Gap 16 BUN 15 Creatinine 0.66 Estim Creat Clear Calc 63.6 Estimated GFR > 60 Random Glucose 117 H Calcium 9.5 D Total Bilirubin 0.5 AST 36 H D ALT 27 Alkaline Phosphatase 88 Total Creatine Kinase 945 H D Troponin I High Sens 150.3 H* D Total Protein 6.6 Albumin 4.2 Urine Color Urine Appearance Urine pH Ur Specific [place] Urine Protein Urine Glucose (UA) Urine Ketones Urine Blood Urine Nitrite Ur Leukocyte Esterase Urine RBC Urine WBC Ur Squamous Epith Cells Urine Bacteria Hyaline Casts COVID-19 (TALIB) COVID-19 Clin Com 03/21/22 03/21/22 03/21/22 06:00 06:20 07:28 WBC RBC Hgb Hct MCV MCH MCHC RDW Plt Count MPV Immature Gran % (Auto) Neut % (Auto) Lymph % (Auto) [place] % (Auto) Eos % (Auto) Baso % (Auto) Lymph # (Auto) [place] # (Auto) Eos # (Auto) Baso # (Auto) Abs Immat Gran (auto) Absolute Neuts (auto) Absolute Nucleated RBC Nucleated RBC % (auto) Sodium Potassium Chloride Carbon Dioxide Anion Gap BUN Creatinine Estim Creat Clear Calc Estimated GFR Random Glucose Calcium Total Bilirubin AST ALT Alkaline Phosphatase Total Creatine Kinase Troponin I High Sens 248.4 H* D Total Protein Albumin Urine Color Yellow Urine Appearance Clear Urine pH 6.5 Ur Specific [place] 1.010 Urine Protein 300 (3+) H Urine Glucose (UA) Negative Urine Ketones Negative Urine Blood Trace H Urine Nitrite Negative Ur Leukocyte Esterase Negative Urine RBC 3-5 H Urine WBC 0-5 Ur Squamous Epith Cells 0-2 Urine Bacteria 4+ Hyaline Casts 0-2 COVID-19 (TALIB) Negative COVID-19 Clin Com See Note 03/21/22 09:21 WBC RBC Hgb Hct MCV MCH MCHC RDW Plt Count MPV Immature Gran % (Auto) Neut % (Auto) Lymph % (Auto) [place] % (Auto) Eos % (Auto) Baso % (Auto) Lymph # (Auto) [place] # (Auto) Eos # (Auto) Baso # (Auto) Abs Immat Gran (auto) Absolute Neuts (auto) Absolute Nucleated RBC Nucleated RBC % (auto) Sodium Potassium Chloride Carbon Dioxide Anion Gap BUN Creatinine Estim Creat Clear Calc Estimated GFR Random Glucose Calcium Total Bilirubin AST ALT Alkaline Phosphatase Total Creatine Kinase Troponin I High Sens 286.7 H* Total Protein Albumin Urine Color Urine Appearance Urine pH Ur Specific [place] Urine Protein Urine Glucose (UA) Urine Ketones Urine Blood Urine Nitrite Ur Leukocyte Esterase Urine RBC Urine WBC Ur Squamous Epith Cells Urine Bacteria Hyaline Casts COVID-19 (TALIB) COVID-19 Clin Com Imaging Radiologist's impression: Impressions Cervical Spine CT 03/21/22 04:05 IMPRESSION: 1. No acute intracranial finding. 2. No fracture or malalignment of the cervical spine. Mild degenerative changes. Head CT 03/21/22 04:05 IMPRESSION: 1. No acute intracranial finding. 2. No fracture or malalignment of the cervical spine. Mild degenerative changes. Chest X-Ray 03/21/22 05:20 IMPRESSION: No acute pulmonary finding. No acute displaced fractures. Pelvis X-Ray 03/21/22 05:20 IMPRESSION: No fracture or malalignment. Assessment and Plan (1) Elevated troponin: Status: Acute Minimally elevated troponin is elderly woman who comes with a fall and being found on the floor with elevated CPK is highly consistent with rhabdomyolysis. Not think she is having any evidence of acute coronary syndrome primary or secondary. Continue to manage her medical condition. Hydrate as tolerated. Physical therapy consult. Continue control of blood pressure with current medications. Does not require any further cardiac workup at this point in time. Long-term fall prevention technique should be pursued. Will follow up if need be. Thank you for allowing me to partake in her care Procedures Date of Service Date of Service: 03/21/22
[2022-03-21] MEDS: oxyCODONE HCl Immed Release 5 MG TABLET PO (18:35)
[2022-03-21 21:02] VITALS: BP 173/75; PULSE 101; RESP 18; TEMP 36.9; O2SAT 96
--- NOTE | 2022-03-21 21:27 | PC.NURSE ---
waiting to give report to ledy rodrigues. no answer tx sent by milo rodrigues
[2022-03-21] MEDS: Ascorbic Acid 500 MG TABLET PO (23:03)
[2022-03-21] MEDS: Docusate Sodium 100 MG CAPSULE PO (23:03)
[2022-03-21] MEDS: Gabapentin 300 MG CAPSULE PO (23:03)
--- NOTE | 2022-03-22 01:35 | PC.NURSE ---
Report called to Danielle Moran RN in [facility]
--- NOTE | 2022-03-22 01:52 | PC.NURSE ---
Report to Krys Menjivar RN on [facility]
[2022-03-22 03:11] VITALS: BP 149/72; PULSE 92; RESP 18; TEMP 36.8; O2SAT 99
[2022-03-22] MEDS: 0.9 % Sodium Chloride 1,000 ML 100 ML IVCONT (03:18)
[2022-03-22] MEDS: oxyCODONE HCl Immed Release 5 MG TABLET PO ×2 (03:18→08:39)
[2022-03-22 04:32] VITALS: BMI 24.0
[2022-03-22 06:19] LABS: Hematocrit 29.5 % (37.0-47.0); Hemoglobin 9.6 g/dl (12.0-16.0); Mean Corpuscular HGB Conc 32.5 g/dl (31.0-35.0); Mean Corpuscular Hemoglobin 30.8 pg (27.0-33.0); Mean Corpuscular Volume 94.6 fL (80.0-98.0); Platelet Count 226 X10*3/uL (160-400); Red Blood Count 3.12 X10*6/uL (4.20-5.50); Red Cell Distribution Width 12.9 % (11.0-16.0); White Blood Count 7.4 X10*3/uL (4.8-10.8)
[2022-03-22 06:41] LABS: Anion Gap 13 (12-20); Blood Urea Nitrogen 10 mg/dL (9-16); Carbon Dioxide 23 mmol/L (22-29); Chloride 107 mmol/L (96-108); Estimated Glomerular Filt Rate > 60; Glucose Fasting 92 mg/dL (60-99); Potassium 3.8 mmol/L (3.3-5.1); Sodium 139 mmol/L (135-145)
[2022-03-22 08:00] VITALS: BP 167/71; PULSE 96; RESP 20; TEMP 37.1; O2SAT 94
[2022-03-22] MEDS: Mirabegron 50 MG TAB.ER.24H PO (08:39)
[2022-03-22] MEDS: Multivitamin TABLET 1 TAB PO (08:39)
[2022-03-22] MEDS: 0.9 % Sodium Chloride Flush 3 ML SYRINGE IVFLUSH (08:39)
[2022-03-22] MEDS: Docusate Sodium 100 MG CAPSULE PO (08:39)
[2022-03-22] MEDS: Metoprolol Succinate ER 25 MG TAB.ER.24H PO (08:39)
[2022-03-22] MEDS: polyethylene glycoL 3350 17 GM POWD.PACK PO (08:40)
[2022-03-22] MEDS: Enoxaparin Sodium 40 MG/0.4 ML SYRINGE SUBCUT (08:40)
[2022-03-22 08:43] VITALS: BP 167/71; PULSE 96; O2SAT 94
[2022-03-22 11:31] VITALS: BP 139/63; PULSE 67; RESP 18; TEMP 36.9; O2SAT 97
--- NOTE | 2022-03-22 12:02 | P.PNIM_ITS ---
Subjective Subjective Date of Service: 03/22/22 Interval History: cc: found on floor interval history: no complaints Cardiovascular Cardiovascular: Reports no additional cardiovascular complaints Respiratory Respiratory: Reports no additional respiratory complaints Physical Exam Vital Signs: Vital Signs: Last Vital Signs Temp 98.4 F 03/22/22 11:31 Pulse 67 03/22/22 11:31 Resp 18 03/22/22 11:31 BP 139/63 03/22/22 11:31 Pulse Ox 97 03/22/22 11:31 O2 Del Method 03/22/22 11:31 Oxygen Flow Rate 4 03/21/22 03:41 BMI result Body Mass Index 24.0 General: AO X 1, no acute distress Resp: CTA bilateral, no accessory muscles used CVS: S1,S2,RRR GI: soft, non tender, non distended Neuro: motor grossly intact, alert Psych: appropriate affect, impaired insight Objective Data Active Medications Ascorbic Acid (Ascorbic Acid 500 Mg Tablet) 500 mg PO BEDTIME [facility] Last Admin: 03/21/22 23:03 Dose: 500 mg Documented By: EFREN Bisacodyl (Bisacodyl 10 Mg Supp.Rect) 10 mg [place] DAILY PRN PRN Reason: Constipation Docusate Sodium (Docusate Sodium 100 Mg Capsule) 100 mg PO BID [facility] Last Admin: 03/22/22 08:39 Dose: 100 mg Documented By: LIZBETH Enoxaparin Sodium (Enoxaparin Sodium 40 Mg/0.4 Ml Syringe) 40 mg SUBCUT Q24H [facility] Last Admin: 03/22/22 08:40 Dose: 40 mg Documented By: LIZBETH Gabapentin (Gabapentin 300 Mg Capsule) 300 mg PO BEDTIME [facility] Last Admin: 03/21/22 23:03 Dose: 300 mg Documented By: EFREN Sodium Chloride (Ns) 1,000 mls @ 100 mls/hr IVCONT .Q10H [facility] Last Infusion: 03/22/22 09:50 Dose: 0 mls/hr Documented By: LIZBETH Metoprolol Succinate (Metoprolol Succinate Er 25 Mg Tab.Er.24h) 25 mg PO DAILY [facility]; Protocol Last Admin: 03/22/22 08:39 Dose: 25 mg Documented By: LIZBETH Mirabegron (Mirabegron 50 Mg Tab.Er.24h) 50 mg PO DAILY [facility] Last Admin: 03/22/22 08:39 Dose: 50 mg Documented By: LIZBETH Multivitamins/Vitamin C (Multivitamin Tablet) 1 tab PO DAILY [facility] Last Admin: 03/22/22 08:39 Dose: 1 tab Documented By: LIZBETH Omeprazole (Omeprazole 20 Mg Capsule.) 20 mg PO DAILY@0630 [facility] Last Admin: 03/22/22 06:05 Dose: Not Given Documented By: ADILIA Non-Admin Reason: Patient Asleep Oxycodone HCl (Oxycodone Hcl Immed Release 5 Mg Tablet) 5 mg PO Q4H PRN PRN Reason: moderate pain Last Admin: 03/22/22 08:39 Dose: 5 mg Documented By: LIZBETH Pharmacy Consult (Consult Rx Perform Med Rec) 1 each MISCELLANE ONCE PRN PRN Reason: Consult order Polyethylene Glycol (Polyethylene Glycol 3350 17 Gm Powd.Pack) 17 gm PO DAILY [facility] Last Admin: 03/22/22 08:40 Dose: 17 gm Documented By: LIZBETH Senna (Sennosides 8.6 Mg Tablet) 8.6 mg PO BEDTIME PRN PRN Reason: Constipation Sodium Chloride (0.9 % Sodium Chloride Flush 3 Ml Syringe) 3 ml IVFLUSH QSHIFT [facility] Last Admin: 03/22/22 08:39 Dose: 3 ml Documented By: LIZBETH Labs CBC & Chem 7: 03/22/22 05:44 03/22/22 05:44 Labs: Laboratory Results - last 24 hr 03/22/22 03/22/22 05:44 05:44 MCV 94.6 MCH 30.8 MCHC 32.5 RDW 12.9 Plt Count 226 MPV 9.0 L Absolute Nucleated RBC 0.000 Nucleated RBC % (auto) 0.0 Anion Gap 13 Estim Creat Clear Calc 84.0 Estimated GFR > 60 Fasting Glucose 92 Calcium 8.0 L D Total Creatine Kinase 1058 H Assessment and Plan (1) Fall: Status: Acute Plan 81F with pmh dementia, htn, chronic back pain presented with?fall, found to have elevated delta troponin fall complicated by elevated delta troponin likely due to mild rhabdomyolisis cardio appreciated no evidence of ACS computer report of EKG from artifact, not clinically significant PT appreciated, STR recommended HTN toprol chronic back pain oxy prn alzheimers dementia at baseline dvt prophylaxis - lovenox full code reason for continued hospitalization:awaiting STR placement Quality Stroke Does the patient have a stroke diagnosis?: No VTE Prior VTE?: No VTE Risk Level:: Medical - moderate - high VTE Device Contraindication: Treatment Not Indicated VTE Drug Contraindication: N/A - Med Ordered
--- NOTE | 2022-03-22 13:37 | PM.DS ---
DS: Providers Provider Date of Service: 03/22/22 Date of admission: 03/21/22 09:20 Primary care physician: LUIS A Barry Consults: 03/21/22 09:31 Consult to Cardiology Routine Consulting Provider: Tera Carmichael Reason for consultation: elevate trop, ?rhabdo, ?EKG changes, (initial ekg not scanned, cant find) DS: Diagnosis Discharge Diagnosis (1) Fall: Status: Acute DS: Summary Hospital Course Hospital Course: from initial hpi: Chief Complaint: fall 81F with pmh of chronic back pain, htn, alzheimers dementia, was brought in from assisted living after being found on the floor. fall was unwitnessed, patient is poor historian and cannot recall fall. unknown down time, reported positive LOC and head strike, though patient may have just fallen asleep on the ground. noted to have reinjured skin tear on right quintero. in ED found to have no significant injury other than right leg skin tear. labs significant for mild troponin delta 150 to 248. cpk 945. EKG initially with inferior lead ST abnormality, repeat normal, denies chest pain. hospital course: Patient was admitted for fall complicated by elevated delta troponin likely due to mild rhabdomyolysis. She was seen by Cardiology who felt there was no evidence of ACS. The and scanned initial EKG previously mentioned turned out to be artifact. Patient was seen by physical therapy recommended short-term rehab. Trauma workup including repeat CT head 24 hours after initial were negative. For hypertension she was continued on Toprol. For chronic back pain she was continued on oxycodone. For Alzheimer's dementia her mental status was at baseline. Patient will be discharged to intermediate facility. Time Spent with Patient Time attestation: Total time spent providing and/or coordinating discharge services: Discharge coordination time: Greater than 30 minutes Quality: Safe Use of Opioids Does Pt have an Active Cancer Diagnosis on the Problem List?: No Quality: Stroke Does the patient have a stroke diagnosis?: No Physical Exam Vital Signs: Vital Signs: Last Vital Signs Temp 98.4 F 03/22/22 11:31 Pulse 67 03/22/22 11:31 Resp 18 03/22/22 11:31 BP 139/63 03/22/22 11:31 Pulse Ox 97 03/22/22 11:31 O2 Del Method 03/22/22 11:31 Oxygen Flow Rate 4 03/21/22 03:41 BMI result Body Mass Index 24.0 General: AO X 1, no acute distress Resp: CTA bilateral, no accessory muscles used CVS: S1,S2,RRR GI: soft, non tender, non distended Neuro: motor grossly intact, alert Psych: appropriate affect, impaired insight DS: Data Data Completed and Pending Labs on day of discharge: Laboratory Results - last 24 hr 03/22/22 03/22/22 05:44 05:44 WBC 7.4 RBC 3.12 L Hgb 9.6 L Hct 29.5 L MCV 94.6 MCH 30.8 MCHC 32.5 RDW 12.9 Plt Count 226 MPV 9.0 L Absolute Nucleated RBC 0.000 Nucleated RBC % (auto) 0.0 Sodium 139 Potassium 3.8 Chloride 107 Carbon Dioxide 23 Anion Gap 13 BUN 10 Creatinine 0.50 Estim Creat Clear Calc 84.0 Estimated GFR > 60 Fasting Glucose 92 Calcium 8.0 L D Total Creatine Kinase 1058 H Discharge Plan Discharge Patient Disposition: [facility] Discharge Diagnosis: rhabdo Referrals: Thelma Obrien PA [Primary Care Provider] - 1 Week Discharge Medications: Continued metoprolol succinate 25 mg tablet extended release 24 hr 1 tab PO DAILY multivitamin Tablet 1 tab PO DAILY Myrbetriq 50 mg tablet extended release 24 hr 1 tab PO DAILY ascorbic acid (vitamin C) 500 mg Tablet 500 mg PO BEDTIME omeprazole 20 mg Capsule,Delayed Release(Dr/Ec) 20 mg PO DAILY@0630 sennosides [senna] 8.6 mg Tablet 8.6 mg PO BEDTIME PRN (Reason: Constipation) acetaminophen 500 mg Tablet 1,000 mg PO TID PRN (Reason: Pain) bisacodyl 10 mg Suppository 10 mg TN DAILY PRN (Reason: Constipation) Fleet Enema 19-7 gram/118 mL Enema 118 ml TN DAILY PRN (Reason: Constipation) docusate sodium [Colace] 100 mg Capsule 100 mg PO BID gabapentin 300 mg Capsule 300 mg PO BEDTIME polyethylene glycol 3350 [Miralax] 17 gram/dose Powder 17 g PO DAILY Culturelle 10 billion cell Capsule 1 cap PO BID oxycodone 5 mg Tablet 5 mg PO Q4H PRN (Reason: Pain) lidocaine HCl [Aspercreme (lidocaine HCl)] 4 % Cream 1 appl TOPICAL QID PRN (Reason: Pain) Discontinued sulfamethoxazole-trimethoprim [Bactrim DS] 800-160 mg Tablet 1 tab PO BID Rx Instructions: LAST DOSE 03/22 Discharge Orders: Discharge Order (Routine); Ordered 03/22/22 Ordered By: Juan Carlos Mack Diet: Advance to usual diet Activity on Discharge: As tolerated Stand Alone Forms: Patient Portal Discharge page Care Plan Goals: rehab Health Concerns: falls, rhabdo Plan of Treatment: PT Assessment: see above
--- NOTE | 2022-03-22 14:58 | MHC.CM.PN ---
VERMA 03/22/22 FEMALE 81 LIVES @ [facility] ([id number]). Previously she was at [facility] Memory unit. Spoke with pts dtr Martha. A PT eval was performed today. The patient qualifies for STR. Preferences were obtained and referrals sent. A bed offer was received and accepted from [facility]. Discharge info has been sent to the facility. A PCR covid test is pending. Patient is scheduled to transfer @ 4pm via BLS.
[2022-03-22 15:05] LABS: Influenza A PCR NEGATIVE (Negative); Influenza B PCR NEGATIVE (Negative); Resp Syncy Virus RNA Qual PCR NEGATIVE (Negative); SARS COV2 PCR INHOUSE NEGATIVE (Negative)
[2022-03-22 19:03] VITALS: BP 160/90; PULSE 83; RESP 18; TEMP 37.1; O2SAT 96
== END 2022-03-22 20:10 | disposition skilled nursing facility (03) ==
LOC: HO.ED 07:24 → HO.EDOVER 09:26 → HO.IMC 20:42
PROVIDERS: Emergency Medicine; Admitting Provider Internal Medicine; Emergency Provider Internal Medicine; PCP Physician Assistant Medical; Visit Provider Internal Medicine
DX: M62.82 Rhabdomyolysis (principal); R77.8 Other specified abnormalities of plasma proteins; S81.811A Laceration without foreign body, right lower leg, initial encounter; W18.12XA Fall from or off toilet with subsequent striking against object, initial encounter; Z91.81 History of falling; G30.9 Alzheimer's disease, unspecified; F02.80 Dementia in other diseases classified elsewhere, unspecified severity, without behavioral disturbance, psychotic disturbance, mood disturbance, and anxiety; I10 Essential (primary) hypertension; Z20.822 Contact with and (suspected) exposure to COVID-19; Y93.89 Activity, other specified; Y92.091 Bathroom in other non-institutional residence as the place of occurrence of the external cause; Y99.9 Unspecified external cause status; Z79.899 Other long term (current) drug therapy
CPT/HCPCS: 0241U; 36415; 70450; 71045; 72125; 72170; 80048; 80053; 81001; 82550; 84484; 85025; 85027; 87635; 93005; 96360; 96361; 96372; 97162; 99219; 99285; J1650

== ENCOUNTER 2022-05-08 14:31 | Emergency (ER) | payer MEDICARE, SELFPAY ==
--- NOTE | ~2022-05-08 | CT_ITS ---
EXAMINATION: CT ABDOMEN AND PELVIS WITHOUT CONTRAST CLINICAL INFORMATION: History of fall, left hip pain and low back pain COMPARISON: None TECHNIQUE: Multidetector volumetric imaging was performed from the superior aspect of the liver through the pubic symphysis. Sagittal and coronal reformatted images were obtained on the technologist's workstation. This CT examination was performed using dose optimization techniques as appropriate, variously including the following: *Automated exposure control *Adjustment of mA and/or kV according to patient size (this includes techniques or standardized protocols for targeted exams where dose is matched to indication/reason for exam; i.e. extremities or head) *Use of iterative reconstruction technique DLP: 511.62 mGy-cm FINDINGS: LUNG BASES: No pulmonary consolidation or pleural effusion. LIVER: Liver has normal size and contour. There is a small hypodense focus in the left hepatic lobe that likely represents a cyst rather than focal steatosis. No suspicious liver lesion. GALLBLADDER AND BILIARY TREE: Gallbladder is without radiopaque stones, wall thickening or pericholecystic fluid. No dilated bile ducts. PANCREAS: Mild diffuse atrophy of the pancreas. No edema, pancreatic ductal dilatation or mass. SPLEEN: Normal. ADRENAL GLANDS: Normal. KIDNEYS AND URETERS: The kidneys have normal size and cortical thickness. No perinephric edema or fluid collection. No urolithiasis or hydroureteronephrosis. BLADDER: Normal. No calculi or wall thickening. BOWEL AND PERITONEUM: Stomach is unremarkable. Incidental noted is a prominent diverticulum of the duodenum. No dilated bowel loops. No focal bowel wall thickening, mesenteric fat stranding or free fluid. No hemoperitoneum or pneumoperitoneum. There are diverticula of the colon without evidence of diverticulitis. ABDOMINAL WALL: Unremarkable. VASCULATURE: Atherosclerosis of the abdominal aorta without aneurysm. No retroperitoneal hematoma. LYMPH NODES: No pathologic sized lymph nodes in the abdomen or pelvis. No inguinal lymphadenopathy. PELVIC VISCERA: Hysterectomy. No adnexal mass or pelvic free fluid. The hyperdensity at the level of the urethra could be from prior injection of a bulking agents from chronic calcification in the periurethral tissue. SKELETAL: Streak artifact is produced by the thoracolumbar spinal fusion hardware. The hardware terminates at the L2 level. Multilevel postoperative interbody fusion of the visualized lower thoracic spine. Multilevel degenerative disc disease of the lumbar spine. The lumbar vertebral body heights are maintained. Minimal degenerative retrolisthesis at L3-L4. Multilevel disc bulge and facet hypertrophy of the lumbar spine with multifactorial spinal canal stenosis seen at L3-L4 and L4-L5. Bones appear to be diffusely osteoporotic. No acute vertebral fracture. Pelvic bones and proximal femurs are intact. No soft tissue hematoma. CT/CT abdomen pelvis wo IV con IMPRESSION: * There is intact appearance of the visualized spinal fusion hardware. No acute abnormalities within the severely degenerated lumbar spine. Also, no evidence of pelvic or proximal femoral fracture in this patient who has recently fallen. No soft tissue hematoma. * No acute imaging abnormalities in the abdomen or pelvis. No abdominal free fluid or free air. There are diverticula of the colon without diverticulitis.
--- NOTE | ~2022-05-08 | CT_ITS ---
EXAMINATION: NONCONTRAST HEAD CT NONCONTRAST CERVICAL SPINE CT INDICATION INFORMATION: Fall. COMPARISON: CT dated 03/21/2022 MRI brain dated 10/28/2020 TECHNIQUE: Separate noncontrast CT examinations of the head and cervical spine were performed. Coronal and sagittal images were created for each examination at the technologist workstation. This CT examination was performed using dose optimization techniques as appropriate, variously including the following: *Automated exposure control *Adjustment of mA and/or kV according to patient size (this includes techniques or standardized protocols for targeted exams where dose is matched to indication/reason for exam; i.e. extremities or head) *Use of iterative reconstruction technique DLP: 1618 mGy-cm FINDINGS: Head: There is no evidence of acute intracranial hemorrhage or territorial infarction. No abnormal mass effect or midline shift is seen. Cruz to white matter differentiation is well preserved. No extra-axial fluid collections are identified. No hydrocephalus. Proportional prominence of the ventricles and sulcal spaces is consistent with mild volume loss. Patchy periventricular and deep white matter hypoattenuation is consistent with mild small vessel ischemic changes. Against seen is a subcentimeter density in the right temporal lobe and left parasagittal parietal lobe compatible with cavernomas, as previously characterized. Cavernous carotid calcifications. No acute osseous or soft tissue abnormality. The mastoid air cells and visualized portions of the paranasal sinuses are well aerated. Cervical spine: Status post anterior spinal fusion at C6-C7 with interbody spacer and fusion of the vertebral bodies at this level, and the level above, C5-C6. Ankylosis of the posterior articular pillars present on the left at C2-C3. Endplate osteophytes and associated diffuse disc bulge present at C4-C5. There is anatomic alignment of the vertebral bodies and posterior elements. The atlantoaxial and atlantooccipital articulations are intact. Vertebral body heights and intervertebral disc spaces are maintained. No evidence of acute fracture. No prevertebral soft tissue swelling. Visualized portions of the lung apices are unremarkable. The thyroid gland is unremarkable. CT/CT cervical spine wo IV con IMPRESSION: No acute intracranial pathology. No cervical spine fracture or traumatic malalignment.
[2022-05-08 14:34] VITALS: BP 165/82; BP 197/78; PULSE 81; PULSE 86; RESP 18; TEMP 37.1; O2SAT 97; O2SAT 98; BMI 21.8
--- NOTE | 2022-05-08 14:41 | ECG_ITS ---
Test Reason : FALL Blood Pressure : / mmHG Vent. Rate : 081 BPM Atrial Rate : 081 BPM P-R Int : 184 ms QRS Dur : 080 ms QT Int : 352 ms P-R-T Axes : 046 003 015 degrees QTc Int : 408 ms Sinus rhythm with occasional , and consecutive Premature ventricular complexes RSR' or QR pattern in V1 suggests right ventricular conduction delay Abnormal ECG When compared with ECG of 21-MAR-2022 05:34, Premature ventricular complexes are now Present Referred By: Tiara Kim Electronically Signed By:ERIK LAURENT MD
[2022-05-08] MEDS: Morphine Sulfate 2 MG/ML CARTRIDGE IVPUSH (14:49)
[2022-05-08] MEDS: ondansetron HCL 4 MG/2 ML VIAL IVPUSH (14:49)
[2022-05-08] MEDS: Acetaminophen 325 MG TABLET 650 MG PO (14:54)
--- NOTE | 2022-05-08 14:56 | ED_ITS ---
HPI - Fall General Chief Complaint: Fall Stated Complaint: FALL W/HEADSTRIKE,NO THINNERS FROM SNF Time Seen by Provider: 05/08/22 14:33 Source: patient Mode of arrival: EMS Limitations: altered mental status (dementia) History of Present Illness HPI Narrative: 82 yo female hx of dementia, falls, overactive bladder reports falling at retirement - unwitnessed found in bathroom no LOC had been seen 10 min prior to arrival. The patient herself states she slipped on something wet on the bathroom floor denies LOC. She has pain in L hip, L foot and low back pain MD complaint: fall Onset (ago): minute(s) (prior to arrival ) Fall from: standing Fall witnessed: no Place fall occurred: retirement/SNF Loss of consciousness: none Prolonged down time: no Symptoms prior to fall: none Context: tripped/slipped Location of injury: neck, back and pelvis Location of injury - extremities: left: foot Severity: moderate Quality: dull and aching Associated symptoms (after fall): denies Related Data Home Medications Medication Instructions Recorded Confirmed metoprolol succinate 25 mg 1 tab PO DAILY 01/19/22 03/21/22 tablet,extended release 24 hr mirabegron 50 mg tablet,extended 1 tab PO DAILY 01/19/22 03/21/22 release 24 hr (Myrbetriq) multivitamin 1 tab PO DAILY 01/19/22 03/21/22 ascorbic acid (vitamin C) 500 mg 500 mg PO BEDTIME 03/12/22 03/21/22 tablet omeprazole 20 mg capsule,delayed 20 mg PO DAILY@0630 03/12/22 03/21/22 release Lactobacillus rhamnosus GG 10 1 cap PO BID 03/21/22 03/21/22 billion cell capsule (Culturelle) acetaminophen 500 mg tablet 1,000 mg PO TID PRN Pain 03/21/22 03/21/22 bisacodyl 10 mg rectal suppository 10 mg FL DAILY PRN Constipation 03/21/22 03/21/22 docusate sodium 100 mg capsule 100 mg PO BID 03/21/22 03/21/22 (Colace) gabapentin 300 mg capsule 300 mg PO BEDTIME 03/21/22 03/21/22 lidocaine HCl 4 % topical cream 1 appl topical QID PRN Pain 03/21/22 03/21/22 (Aspercreme (lidocaine HCl)) oxycodone 5 mg tablet 5 mg PO Q4H PRN Pain 03/21/22 03/21/22 polyethylene glycol 3350 17 17 g PO DAILY 03/21/22 03/21/22 gram/dose oral powder (Miralax) sennosides 8.6 mg tablet (senna) 8.6 mg PO BEDTIME PRN Constipation 03/21/22 03/21/22 sodium phosphates 19 gram-7 118 ml FL DAILY PRN Constipation 03/21/22 03/21/22 gram/118 mL enema (Fleet Enema) Allergies Allergy/AdvReac Type Severity Reaction Status Date / Time No Known Allergies Allergy Verified 05/08/22 14:44 Review of Systems Review of Systems: ROS unable to be obtained due to dementia [facility] Past Medical History Attestation statement: The following information was validated with the patient. Medical History Alzheimer disease Chronic back pain Dementia HTN (hypertension) Squamous cell skin cancer Surgical History H/O Spinal surgery H/O: hysterectomy Family History Family History Mother Breast cancer Social History Social History Housing: House Patient Tobacco Use Status: Never used Tobacco Second Hand Smoke Exposure: No Advance Directives: Yes Advance Directives on File: Yes Advance Directives Date on File: 01/19/22 service: No Current occupational status: retired Physical Exam Vital Signs: Vital Signs: Last Vital Signs Temp 98.8 F 05/08/22 14:34 Pulse 81 05/08/22 14:34 Resp 18 05/08/22 14:34 BP 197/78 H 05/08/22 14:34 Pulse Ox 97 05/08/22 14:34 O2 Del Method 05/08/22 14:34 BMI result Body Mass Index 21.8 Appearance: Alert. Oriented X2 (confused on time). anxious mild acute distress. Eyes: Pupils equal, round and reactive to light. ENT: Pharynx normal. no signs of trauma Neck: collar in place, reports ttp along mid cervical spine no step offs CVS: Normal heart rate and rhythm. Pulses normal. Respiratory: No respiratory distress. Breath sounds normal. Abdomen: Soft and nontender. Back: ttp along lower lumbar spine Skin: Skin warm and dry. Normal skin color. fragile thin skin Extremities: No lower extremity edema. L hip and foot ttp left leg is shortened and rotated, no pain in bilateral UE Neuro: Oriented X 2. No motor deficit. No sensory deficit. Course Course Course Narrative: signed out to Dr. Reynolds pending further workup MDM - Fall MDM Narrative Medical decision making narrative: 82 yo female hx of dementia, falls, overactive bladder reports falling at retirement at this time will need CT head/cspine for trauma given age and mechanism. Patient also has low back pain and L hip pain - CT abdomen / pelvis for trauma ordered. Labs, EKG, no CP/SOB doubt ACS / PE - will obtain two troponins. IV morphine ordered for pain as well. Dispo per results and findings. Lab Data Result diagrams: 05/08/22 16:02 05/08/22 16:02 ECG Data Attestation: I personally reviewed and interpreted this ECG as follows: ECG interpretation date: 05/08/22 ECG interpretation time: 15:07 Interpretation: Rate: 81 Rhythm: NSR two PVCs [place]: normal Normal P waves. Normal GLORIA. Normal QRS complex. ST T wave : normal no JEFE qTC: normal prior studies: no acute ischemia The study has been interpreted contemporaneously by me. . Discharge Plan Discharge Clinical Impression: Fall, Low back pain Patient Disposition: Still a Patient Prescriptions: No Action metoprolol succinate 25 mg tablet extended release 24 hr 1 tab PO DAILY multivitamin Tablet 1 tab PO DAILY Myrbetriq 50 mg tablet extended release 24 hr 1 tab PO DAILY ascorbic acid (vitamin C) 500 mg Tablet 500 mg PO BEDTIME omeprazole 20 mg Capsule,Delayed Release(Dr/Ec) 20 mg PO DAILY@0630 sennosides [senna] 8.6 mg Tablet 8.6 mg PO BEDTIME PRN (Reason: Constipation) acetaminophen 500 mg Tablet 1,000 mg PO TID PRN (Reason: Pain) bisacodyl 10 mg Suppository 10 mg FL DAILY PRN (Reason: Constipation) Fleet Enema 19-7 gram/118 mL Enema 118 ml FL DAILY PRN (Reason: Constipation) docusate sodium [Colace] 100 mg Capsule 100 mg PO BID gabapentin 300 mg Capsule 300 mg PO BEDTIME polyethylene glycol 3350 [Miralax] 17 gram/dose Powder 17 g PO DAILY Culturelle 10 billion cell Capsule 1 cap PO BID oxycodone 5 mg Tablet 5 mg PO Q4H PRN (Reason: Pain) lidocaine HCl [Aspercreme (lidocaine HCl)] 4 % Cream 1 appl TOPICAL QID PRN (Reason: Pain)
[2022-05-08 16:06] LABS: MANUAL DIFF FLAG NO
[2022-05-08 16:11] LABS: Basophils Absolute Auto 0.1 X10*3/uL (0.0-0.2); Basophils Percent Auto 1.1 % (0-2); Eosinophils Absolute Auto 0.1 X10*3/uL (0.0-0.4); Eosinophils Percent Auto 1.3 % (0-4); Hematocrit 33.1 % (37.0-47.0); Hemoglobin 10.7 g/dl (12.0-16.0); Imm Gran Abs Auto 0.01 X10*3/uL (0.00-0.03); Imm Gran Pct Auto 0.2 % (0.0-0.4); Lymphocytes Absolute Auto 0.7 X10*3/uL (1.2-4.9); Lymphocytes Percent Auto 14.3 % (20-40); Mean Corpuscular HGB Conc 32.3 g/dl (31.0-35.0); Mean Corpuscular Hemoglobin 29.6 pg (27.0-33.0); Mean Corpuscular Volume 91.7 fL (80.0-98.0); Mean Platelet Volume 8.4 fL (9.4-12.3); Monocytes Absolute Auto 0.5 X10*3/uL (0.1-1.2); Monocytes Percent Auto 11.3 % (2-11); Neutrophils Absolute Auto 3.3 x10*3/uL (2.0-8.3); Neutrophils Percent Auto 71.8 % (45-73); Platelet Count 201 X10*3/uL (160-400); Red Blood Count 3.61 X10*6/uL (4.20-5.50); Red Cell Distribution Width 14.2 % (11.0-16.0); White Blood Count 4.6 X10*3/uL (4.8-10.8)
[2022-05-08 16:13] LABS: Prothrombin Time 11.3 SEC (10.0-13.1)
[2022-05-08 16:15] LABS: COVID-19 Test Negative (Negative); IDNOW Serial# 16C4AD1C
[2022-05-08 16:25] LABS: Anion Gap 13 (12-20); Blood Urea Nitrogen 15 mg/dL (9-16); Calcium 9.3 mg/dL (8.4-10.2); Carbon Dioxide 30 mmol/L (22-29); Chloride 100 mmol/L (96-108); Estimated Glomerular Filt Rate > 60; Glucose Random 122 mg/dL (60-115); Potassium 4.5 mmol/L (3.3-5.1); Sodium 138 mmol/L (135-145)
[2022-05-08 16:33] LABS: Troponin-I High Sensitivity < 3.5 ng/L (<3.5-17.0)
[2022-05-08 17:52] LABS: Appearance Urine Clear; Color Urine Yellow; Glucose Urine UA Negative (Negative); Leukocyte Esterase Urine Trace (Negative); Nitrite Urine Negative (Negative); PH 7.5 (5.0-9.0); Specific Gravity - Urine <= 1.005 (1.005-1.025); UMIC TRIGGER UACC YES; Urine Blood Small (1+) (Negative); Urine Ketones Negative (Negative); Urine Protein Trace mg/dL (Neg-Trace)
[2022-05-08 17:59] LABS: Bacteria Urine 4+ (None Seen); Hyaline Casts Urine 0-2 /LPF (0-2); Squamous Epithelial Cell Urine 0-2 /HPF (0-2); WBC Urine 0-5 /HPF (0-5)
[2022-05-08 18:06] VITALS: BP 164/67; PULSE 74; RESP 16; O2SAT 97
== END 2022-05-08 18:10 | disposition home or self-care (01) ==
PROVIDERS: Emergency Provider Emergency Medicine; PCP Physician Assistant Medical
DX: M54.50 Low back pain, unspecified (principal); Z91.81 History of falling; F03.90 Unspecified dementia, unspecified severity, without behavioral disturbance, psychotic disturbance, mood disturbance, and anxiety; Z20.822 Contact with and (suspected) exposure to COVID-19
CPT/HCPCS: 36415; 70450; 72125; 74176; 80048; 81001; 82550; 83735; 84484; 85025; 85610; 87635; 93005; 96374; 96375; 99284; J2270; J2405

== ENCOUNTER 2022-05-30 10:17 | Inpatient (IN) | payer MEDICARE, SELFPAY ==
--- NOTE | ~2022-05-30 | CT_ITS ---
EXAMINATION: CT CHEST ANGIOGRAM PE PROTOCOL CLINICAL INFORMATION: , Elevated d-dimer COMPARISON: None TECHNIQUE: Volumetric imaging was performed through the chest. Reformatted coronal and sagittal imaging was performed. 3-D MIP images performed at a dedicated separate workstation. This CT examination was performed using dose optimization techniques as appropriate, variously including the following: *Automated exposure control *Adjustment of mA and/or kV according to patient size (this includes techniques or standardized protocols for targeted exams where dose is matched to indication/reason for exam; i.e. extremities or head) *Use of iterative reconstruction technique CONTRAST: Approximately 65 mL of Omnipaque 350 injected. DLP: 500 FINDINGS: Exam suboptimal due to beam hardening artifact from hardware in the dorsal spine. PULMONARY ARTERIES: Multiple branches with suboptimal filling felt to be an artifact due to beam hardening from rods in the dorsal spine rather than true emboli. No large embolus in main pulmonary artery and its main branches. LINES/TUBES: None LUNGS: Lung Parenchyma: Mild infiltrate/atelectasis at right lung base. Lung Nodules:There are no significant lung nodules. AIRWAYS: Trachea and bronchi are normal. PLEURA: No pleural effusion or pneumothorax. MEDIASTINUM AND RAFAEL: The visualized thyroid gland is unremarkable. No mediastinal, hilar or axillary lymphadenopathy. There is no mediastinal mass. VESSELS: Thoracic aorta is normal in size. HEART AND PERICARDIUM: Heart is normal in size. There is no pericardial effusion. There are no coronary calcifications. CHEST WALL, LOWER NECK, SURROUNDING SOFT TISSUES: Normal VISUALIZED ABDOMEN: Unremarkable BONES: There are old fractures and/or thoracotomy changes left mid lung zone. Hardware posterior fusion dorsal spine. CT/CT angio chest PE protocol IMPRESSION: 1. Exam limited due to beam hardening artifact from hardware in the dorsal spine. 2. Filling defects in pulmonary arteries felt to be artifacts rather than true emboli caused by beam hardening from posterior rods, these are linear and do not follow the expected course of emboli. 3. If there is high index of suspicion for PE would recommend correlation with follow-up VQ scan. 4. No large central pulmonary embolus. 5. Mild infiltrate/atelectasis at right lung base. 6. Old fractures and/or thoracotomy left mid lung zone. 7. Hardware posterior fusion dorsal spine.
--- NOTE | ~2022-05-30 | XR_ITS ---
EXAMINATION: XR chest 1V CLINICAL INFORMATION: Hypoxia COMPARISON: Prior chest x-ray 03/21/2022 TECHNIQUE: XR chest 1V Tubes and lines: None Lungs and pleura: Blunting of left costophrenic angle unchanged might be small pleural effusion or pleural thickening. Heart and mediastinum: The mediastinum is within normal limits.. Bones/soft tissue: Probably an old left lateral 6 rib fracture. Rods projecting over the dorsal spine posterior fusion unchanged. XR/XR chest 1V IMPRESSION: 1. No radiographic evidence of acute infiltrates or failure. 2. Blunting of left costophrenic angle might be small pleural effusion or pleural thickening.
--- NOTE | ~2022-05-30 | XR_ITS ---
EXAMINATION: LEFT HIP. LUMBAR SPINE. PELVIS. RIGHT WRIST. CLINICAL INFORMATION: Pain after falling COMPARISON: 03/21/2022 TECHNIQUE: 3 views of the right wrist. Single view of the pelvis. 2 views lumbar spine. 2 views of the left hip. FINDINGS: Lumbar spine: Surgical hardware secures the lower thoracic and lumbar spine. No fracture or destructive process. There is degenerative change at the lumbosacral junction. Alignment is preserved. Pelvis: No fracture or destructive process. Hips intact. Left hip: No fracture, or dislocation or destructive process. Minimal sclerotic change overlies the left femoral head as well as the right but this is unchanged from 03/21/2022. There is continued concern for a hip fracture based on clinical exam then CT would be far more sensitive. Right wrist: On the lateral view there appears to be evidence of an impacted fracture of the distal radius. There is mild soft tissue swelling overlying the ulnar styloid. There is degenerative change noted at the first CMC joint. Alignment is considered anatomic XR/XR wrist RT 2V IMPRESSION: Impacted distal radial fracture.
--- NOTE | ~2022-05-30 | XR_ITS ---
EXAMINATION: LEFT HIP. LUMBAR SPINE. PELVIS. RIGHT WRIST. CLINICAL INFORMATION: Pain after falling COMPARISON: 03/21/2022 TECHNIQUE: 3 views of the right wrist. Single view of the pelvis. 2 views lumbar spine. 2 views of the left hip. FINDINGS: Lumbar spine: Surgical hardware secures the lower thoracic and lumbar spine. No fracture or destructive process. There is degenerative change at the lumbosacral junction. Alignment is preserved. Pelvis: No fracture or destructive process. Hips intact. Left hip: No fracture, or dislocation or destructive process. Minimal sclerotic change overlies the left femoral head as well as the right but this is unchanged from 03/21/2022. There is continued concern for a hip fracture based on clinical exam then CT would be far more sensitive. Right wrist: On the lateral view there appears to be evidence of an impacted fracture of the distal radius. There is mild soft tissue swelling overlying the ulnar styloid. There is degenerative change noted at the first CMC joint. Alignment is considered anatomic XR/XR lumbar spine 2-3V IMPRESSION: Impacted distal radial fracture.
--- NOTE | ~2022-05-30 | XR_ITS ---
EXAMINATION: LEFT HIP. LUMBAR SPINE. PELVIS. RIGHT WRIST. CLINICAL INFORMATION: Pain after falling COMPARISON: 03/21/2022 TECHNIQUE: 3 views of the right wrist. Single view of the pelvis. 2 views lumbar spine. 2 views of the left hip. FINDINGS: Lumbar spine: Surgical hardware secures the lower thoracic and lumbar spine. No fracture or destructive process. There is degenerative change at the lumbosacral junction. Alignment is preserved. Pelvis: No fracture or destructive process. Hips intact. Left hip: No fracture, or dislocation or destructive process. Minimal sclerotic change overlies the left femoral head as well as the right but this is unchanged from 03/21/2022. There is continued concern for a hip fracture based on clinical exam then CT would be far more sensitive. Right wrist: On the lateral view there appears to be evidence of an impacted fracture of the distal radius. There is mild soft tissue swelling overlying the ulnar styloid. There is degenerative change noted at the first CMC joint. Alignment is considered anatomic XR/XR pelvis 1-2V IMPRESSION: Impacted distal radial fracture.
--- NOTE | ~2022-05-30 | XR_ITS ---
EXAMINATION: LEFT HIP. LUMBAR SPINE. PELVIS. RIGHT WRIST. CLINICAL INFORMATION: Pain after falling COMPARISON: 03/21/2022 TECHNIQUE: 3 views of the right wrist. Single view of the pelvis. 2 views lumbar spine. 2 views of the left hip. FINDINGS: Lumbar spine: Surgical hardware secures the lower thoracic and lumbar spine. No fracture or destructive process. There is degenerative change at the lumbosacral junction. Alignment is preserved. Pelvis: No fracture or destructive process. Hips intact. Left hip: No fracture, or dislocation or destructive process. Minimal sclerotic change overlies the left femoral head as well as the right but this is unchanged from 03/21/2022. There is continued concern for a hip fracture based on clinical exam then CT would be far more sensitive. Right wrist: On the lateral view there appears to be evidence of an impacted fracture of the distal radius. There is mild soft tissue swelling overlying the ulnar styloid. There is degenerative change noted at the first CMC joint. Alignment is considered anatomic XR/XR hip LT min 2V IMPRESSION: Impacted distal radial fracture.
--- NOTE | ~2022-05-30 | NM_ITS ---
EXAMINATION: NM LUNG IMAGE PERFUSION CLINICAL INFORMATION: Acute respiratory failure dyspnea, hypoxia. COMPARISON: None TECHNIQUE: Following intravenous administration of 4 mCi of 99m technetium MAA, perfusion images of both lungs were obtained multiple projections. Ventilation study was not performed. FINDINGS: On perfusion scan there is normal flow seen to both lungs in all segments with nonsegmental defects in right lower lobe superior segment and entire left lower lobe. Slight decrease activity in right lower lobe superior segment likely secondary to attenuation from layering of small right pleural effusion seen on CT chest exam 05/30/2027. NM/NM pul perfusion IMPRESSION: Nonsegmental defects in both lower lobes. The right lower lobe defect is likely due to layering of right pleural effusion. Findings are suggestive of low probability for PE.
--- NOTE | 2022-05-30 10:20 | ED.EXTPRO ---
HPI - Extremity Problem General Chief complaint: Fall Stated complaint: FALL - RT WRIST PAIN/SWELLING FROM SNF Time Seen by Provider: 05/30/22 10:19 Source: EMS Mode of arrival: EMS Limitations: other (dementia) History of Present Illness HPI Narrative: Fall at the correction complaining mostly of lumbar back and right wrist. MD Complaint: extremity pain Onset (ago): hour(s) Pain Consistency: constant Location: right and upper extremity Relieving factors: nothing Related Data Home Medications Medication Instructions Recorded Confirmed metoprolol succinate 25 mg 1 tab PO DAILY 01/19/22 03/21/22 tablet,extended release 24 hr mirabegron 50 mg tablet,extended 1 tab PO DAILY 01/19/22 03/21/22 release 24 hr (Myrbetriq) multivitamin 1 tab PO DAILY 01/19/22 03/21/22 ascorbic acid (vitamin C) 500 mg 500 mg PO BEDTIME 03/12/22 03/21/22 tablet omeprazole 20 mg capsule,delayed 20 mg PO DAILY@0630 03/12/22 03/21/22 release Lactobacillus rhamnosus GG 10 1 cap PO BID 03/21/22 03/21/22 billion cell capsule (Culturelle) acetaminophen 500 mg tablet 1,000 mg PO TID PRN Pain 03/21/22 03/21/22 bisacodyl 10 mg rectal suppository 10 mg [place] DAILY PRN Constipation 03/21/22 03/21/22 docusate sodium 100 mg capsule 100 mg PO BID 03/21/22 03/21/22 (Colace) gabapentin 300 mg capsule 300 mg PO BEDTIME 03/21/22 03/21/22 lidocaine HCl 4 % topical cream 1 appl topical QID PRN Pain 03/21/22 03/21/22 (Aspercreme (lidocaine HCl)) oxycodone 5 mg tablet 5 mg PO Q4H PRN Pain 03/21/22 03/21/22 polyethylene glycol 3350 17 17 g PO DAILY 03/21/22 03/21/22 gram/dose oral powder (Miralax) sennosides 8.6 mg tablet (senna) 8.6 mg PO BEDTIME PRN Constipation 03/21/22 03/21/22 sodium phosphates 19 gram-7 118 ml WV DAILY PRN Constipation 03/21/22 03/21/22 gram/118 mL enema (Fleet Enema) Allergies Allergy/AdvReac Type Severity Reaction Status Date / Time No Known Allergies Allergy Verified 05/08/22 14:44 Review of Systems Review of Systems: Yes Unobtainable due to mental status and Other (severe dementia) Neurologic: Denies Sensory deficit (Neuro) [facility]LY [facility] Past Medical History Medical History Alzheimer disease Chronic back pain Dementia HTN (hypertension) Squamous cell skin cancer Surgical History H/O Spinal surgery H/O: hysterectomy Family History Family History Mother Breast cancer Social History Social History Housing: House Patient Tobacco Use Status: Never used Tobacco Second Hand Smoke Exposure: No Advance Directives: Yes Advance Directives on File: Yes Advance Directives Date on File: 01/19/22 service: No Current occupational status: retired Physical Exam Vital Signs: Vital Signs: Last Vital Signs Temp 98.0 F 05/30/22 12:51 Pulse 70 05/30/22 12:51 Resp 14 05/30/22 12:51 BP 169/65 H 05/30/22 12:51 Pulse Ox 99 05/30/22 12:51 O2 Del Method 05/30/22 12:51 BMI result Body Mass Index 21.9 Const: Other: Frail elderly, tearful Orientation/consciousness: oriented to person Limitations: other limitations (dementia) HEENT: Head: Yes normal to inspection Ears: external ears normal General nose exam: Normal external nose present Mouth: Normal oral and palatal mucosa present and oropharynx normal Throat: Yes posterior oropharynx normal Eyes: General: appearance normal, both eyes and all related structures Neck: Other: supple Neck: Yes normal visual inspection Chest: Chest palpation & inspection: normal inspection of the chest Resp: Auscultation: clear to auscultation bilaterally Cardio: Jugular venous distension: no JVD Rate: regular rate Rhythm: regular rhythm Heart sounds: S1 normal heart sound present and S2 normal heart sound present GI: Inspection: Yes normal to inspection Palpation (GI): Soft to palpation, nontender and No hepatosplenomegaly present Auscultation: normal bowel sounds : General: Yes no CVA tenderness Back/Spine/Pelvis: Back: no CVA tenderness Skin: General skin exam: no rashes or lesions noted Neuro: General: oriented to person Cranial nerves: Yes CN's II-XII intact bilaterally Motor exam (neuro): 5/5 motor strength present throughout Sensory Exam: No Sensory deficit (Neuro) Extrem: General: Yes normal to inspection Psych: Appearance: grossly normal Course Reevaluation(s) Reevaluation #1: Patient with a distal wrist fracture will splint and discharge home Time: 13:37 Medications Administered Discontinued Medications Generic Name Dose Route Start Last Admin Trade Name Freq PRN Reason Stop Dose Admin Ketorolac Tromethamine 15 mg 05/30/22 12:21 05/30/22 12:39 Ketorolac Tromethamine 30 Mg/Ml Vial IVPUSH 05/30/22 12:22 Not Given ONCE ONE Morphine Sulfate 4 mg 05/30/22 12:34 05/30/22 12:38 Morphine Sulfate 4 Mg/Ml Cartridge IVPUSH 05/30/22 12:35 4 mg ONCE ONE Administration Protocol Ondansetron HCl 4 mg 05/30/22 12:39 05/30/22 12:42 Ondansetron Hcl 4 Mg/2 Ml Vial IVPUSH 05/30/22 12:40 4 mg ONCE ONE Administration MDM - Extremity (Nontraumatic) Lab Data Result diagrams: 05/30/22 12:31 05/30/22 12:31 Labs: Lab Results 05/30/22 05/30/22 05/30/22 Range/Units 12:31 12:31 12:31 WBC 8.8 (4.8-10.8) X10*3/uL RBC 4.12 L (4.20-5.50) X10*6/uL Hgb 12.2 (12.0-16.0) g/dl Hct 37.2 (37.0-47.0) % MCV 90.3 (80.0-98.0) fL MCH 29.6 (27.0-33.0) pg MCHC 32.8 (31.0-35.0) g/dl RDW 14.6 (11.0-16.0) % Plt Count 202 (160-400) X10*3/uL MPV 8.8 L (9.4-12.3) fL Immature Gran % (Auto) 0.2 (0.0-0.4) % Neut % (Auto) 87.5 H (45-73) % Lymph % (Auto) 7.5 L (20-40) % [place] % (Auto) 4.1 (2-11) % Eos % (Auto) 0.5 (0-4) % Baso % (Auto) 0.2 (0-2) % Lymph # (Auto) 0.7 L (1.2-4.9) X10*3/uL [place] # (Auto) 0.4 (0.1-1.2) X10*3/uL Eos # (Auto) 0.0 (0.0-0.4) X10*3/uL Baso # (Auto) 0.0 (0.0-0.2) X10*3/uL Abs Immat Gran (auto) 0.02 (0.00-0.03) X10*3/uL Absolute Neuts (auto) 7.7 (2.0-8.3) x10*3/uL Absolute Nucleated RBC 0.000 (0.0-0.012) X10*3/uL Nucleated RBC % (auto) 0.0 (0.0-0.2) /100WBC PT 11.0 (10.0-13.1) SEC INR 1.0 (0.9-1.1) Sodium 137 (135-145) mmol/L Potassium 3.8 (3.3-5.1) mmol/L Chloride 98 (96-108) mmol/L Carbon Dioxide 28 (22-29) mmol/L Anion Gap 15 (12-20) BUN 13 (9-16) mg/dL Creatinine 0.67 (0.5-1.4) mg/dL Estim Creat Clear Calc 56.9 Estimated GFR > 60 Random Glucose 94 (60-115) mg/dL Calcium 9.4 (8.4-10.2) mg/dL Total Bilirubin 0.6 (0.0-1.0) mg/dL AST 30 (5-31) U/L ALT 27 (0-31) U/L Alkaline Phosphatase 86 (39-117) U/L Total Protein 7.1 (6.5-8.0) g/dL Albumin 4.5 (3.5-5.0) g/dL Urine Color Urine Appearance Urine pH (5.0-9.0) Ur Specific [place] (1.005-1.025) Urine Protein (Neg-Trace) mg/dL Urine Glucose (UA) (Negative) mg/dL Urine Ketones (Negative) mg/dL Urine Blood (Negative) Urine Nitrite (Negative) Ur Leukocyte Esterase (Negative) 05/30/22 Range/Units 12:31 WBC (4.8-10.8) X10*3/uL RBC (4.20-5.50) X10*6/uL Hgb (12.0-16.0) g/dl Hct (37.0-47.0) % MCV (80.0-98.0) fL MCH (27.0-33.0) pg MCHC (31.0-35.0) g/dl RDW (11.0-16.0) % Plt Count (160-400) X10*3/uL MPV (9.4-12.3) fL Immature Gran % (Auto) (0.0-0.4) % Neut % (Auto) (45-73) % Lymph % (Auto) (20-40) % [place] % (Auto) (2-11) % Eos % (Auto) (0-4) % Baso % (Auto) (0-2) % Lymph # (Auto) (1.2-4.9) X10*3/uL [place] # (Auto) (0.1-1.2) X10*3/uL Eos # (Auto) (0.0-0.4) X10*3/uL Baso # (Auto) (0.0-0.2) X10*3/uL Abs Immat Gran (auto) (0.00-0.03) X10*3/uL Absolute Neuts (auto) (2.0-8.3) x10*3/uL Absolute Nucleated RBC (0.0-0.012) X10*3/uL Nucleated RBC % (auto) (0.0-0.2) /100WBC PT (10.0-13.1) SEC INR (0.9-1.1) Sodium (135-145) mmol/L Potassium (3.3-5.1) mmol/L Chloride (96-108) mmol/L Carbon Dioxide (22-29) mmol/L Anion Gap (12-20) BUN (9-16) mg/dL Creatinine (0.5-1.4) mg/dL Estim Creat Clear Calc Estimated GFR Random Glucose (60-115) mg/dL Calcium (8.4-10.2) mg/dL Total Bilirubin (0.0-1.0) mg/dL AST (5-31) U/L ALT (0-31) U/L Alkaline Phosphatase (39-117) U/L Total Protein (6.5-8.0) g/dL Albumin (3.5-5.0) g/dL Urine Color Yellow Urine Appearance Clear Urine pH 7.0 (5.0-9.0) Ur Specific [place] 1.010 (1.005-1.025) Urine Protein Negative (Neg-Trace) mg/dL Urine Glucose (UA) Negative (Negative) mg/dL Urine Ketones Negative (Negative) mg/dL Urine Blood Negative (Negative) Urine Nitrite Negative (Negative) Ur Leukocyte Esterase Negative (Negative) Imaging Data wrist, hip, lumbar spine: Radiologist's impression: FINDINGS: Lumbar spine: Surgical hardware secures the lower thoracic and lumbar spine. No fracture or destructive process. There is degenerative change at the lumbosacral junction. Alignment is preserved. Pelvis: No fracture or destructive process. Hips intact. Left hip: No fracture, or dislocation or destructive process. Minimal sclerotic change overlies the left femoral head as well as the right but this is unchanged from 03/21/2022. There is continued concern for a hip fracture based on clinical exam then CT would be far more sensitive. Right wrist: On the lateral view there appears to be evidence of an impacted fracture of the distal radius. There is mild soft tissue swelling overlying the ulnar styloid. There is degenerative change noted at the first CMC joint. Alignment is considered anatomic XR/XR hip LT min 2V IMPRESSION: Impacted distal radial fracture.? Dictated By: Prince Valle MD Signed By: <Electronically signed by Prince Valle MD in OV> 05/30/22 1301 Discharge Plan Discharge Clinical Impression: Fracture of wrist Patient Disposition: Home, Self-Care Instructions: Arm Fracture in Adults (ED) Prescriptions: No Action metoprolol succinate 25 mg tablet extended release 24 hr 1 tab PO DAILY multivitamin Tablet 1 tab PO DAILY Myrbetriq 50 mg tablet extended release 24 hr 1 tab PO DAILY ascorbic acid (vitamin C) 500 mg Tablet 500 mg PO BEDTIME omeprazole 20 mg Capsule,Delayed Release(Dr/Ec) 20 mg PO DAILY@0630 sennosides [senna] 8.6 mg Tablet 8.6 mg PO BEDTIME PRN (Reason: Constipation) acetaminophen 500 mg Tablet 1,000 mg PO TID PRN (Reason: Pain) bisacodyl 10 mg Suppository 10 mg WV DAILY PRN (Reason: Constipation) Fleet Enema 19-7 gram/118 mL Enema 118 ml WV DAILY PRN (Reason: Constipation) docusate sodium [Colace] 100 mg Capsule 100 mg PO BID gabapentin 300 mg Capsule 300 mg PO BEDTIME polyethylene glycol 3350 [Miralax] 17 gram/dose Powder 17 g PO DAILY Culturelle 10 billion cell Capsule 1 cap PO BID oxycodone 5 mg Tablet 5 mg PO Q4H PRN (Reason: Pain) lidocaine HCl [Aspercreme (lidocaine HCl)] 4 % Cream 1 appl TOPICAL QID PRN (Reason: Pain) Referrals: Joey Martinez PA-C [Physician Systems Planner] - 1 week
[2022-05-30 10:27] VITALS: BP 205/79; PULSE 72; RESP 18; TEMP 36.7; O2SAT 90; O2SAT 99; BMI 21.9
--- NOTE | 2022-05-30 10:46 | PC.NURSE ---
Spoke to patients daughter Martha who is aware of the fall. Pt states that she was started on Cymbalta yesterday. Pts transition of care specialist Beverly is on her way to facility at this time.
--- NOTE | 2022-05-30 10:59 | PC.NURSE ---
pt with skin tear to left elbow
--- NOTE | 2022-05-30 11:58 | PC.NURSE ---
spoke with daughter delroy cooper evans
--- NOTE | 2022-05-30 12:21 | ECG_ITS ---
Test Reason : FALL Blood Pressure : / mmHG Vent. Rate : 068 BPM Atrial Rate : 068 BPM P-R Int : 184 ms QRS Dur : 096 ms QT Int : 368 ms P-R-T Axes : 085 025 054 degrees QTc Int : 391 ms Normal sinus rhythm RSR' or QR pattern in V1 suggests right ventricular conduction delay Otherwise normal ECG When compared with ECG of 08-MAY-2022 14:50, Premature ventricular complexes are no longer Present Referred By: Gloria Moseley Electronically Signed By:ERIK LAURENT MD
[2022-05-30 12:38] VITALS: RESP 20
[2022-05-30 12:38] LABS: MANUAL DIFF FLAG NO
[2022-05-30] MEDS: Morphine Sulfate 4 MG/ML CARTRIDGE IVPUSH (12:38)
[2022-05-30 12:39] LABS: Basophils Percent Auto 0.2 % (0-2); Eosinophils Percent Auto 0.5 % (0-4); Hematocrit 37.2 % (37.0-47.0); Hemoglobin 12.2 g/dl (12.0-16.0); Imm Gran Abs Auto 0.02 X10*3/uL (0.00-0.03); Imm Gran Pct Auto 0.2 % (0.0-0.4); Lymphocytes Absolute Auto 0.7 X10*3/uL (1.2-4.9); Lymphocytes Percent Auto 7.5 % (20-40); Mean Corpuscular HGB Conc 32.8 g/dl (31.0-35.0); Mean Corpuscular Hemoglobin 29.6 pg (27.0-33.0); Mean Corpuscular Volume 90.3 fL (80.0-98.0); Mean Platelet Volume 8.8 fL (9.4-12.3); Monocytes Absolute Auto 0.4 X10*3/uL (0.1-1.2); Monocytes Percent Auto 4.1 % (2-11); Neutrophils Absolute Auto 7.7 x10*3/uL (2.0-8.3); Neutrophils Percent Auto 87.5 % (45-73); Platelet Count 202 X10*3/uL (160-400); Red Blood Count 4.12 X10*6/uL (4.20-5.50); Red Cell Distribution Width 14.6 % (11.0-16.0); White Blood Count 8.8 X10*3/uL (4.8-10.8)
[2022-05-30 12:40] LABS: Appearance Urine Clear; Color Urine Yellow; Glucose Urine UA Negative (Negative); Leukocyte Esterase Urine Negative (Negative); Nitrite Urine Negative (Negative); Urine Blood Negative (Negative); Urine Ketones Negative (Negative); Urine Protein Negative (Neg-Trace)
[2022-05-30] MEDS: ondansetron HCL 4 MG/2 ML VIAL IVPUSH (12:42)
[2022-05-30 12:51] VITALS: BP 169/65; PULSE 70; RESP 14; TEMP 36.7; O2SAT 99
[2022-05-30 12:57] LABS: Alanine Aminotransferase 27 U/L (0-31); Albumin Level 4.5 g/dL (3.5-5.0); Alkaline Phosphatase 86 U/L (39-117); Anion Gap 15 (12-20); Aspartate Amino Transferase 30 U/L (5-31); Bilirubin Total 0.6 mg/dL (0.0-1.0); Blood Urea Nitrogen 13 mg/dL (9-16); Calcium 9.4 mg/dL (8.4-10.2); Carbon Dioxide 28 mmol/L (22-29); Chloride 98 mmol/L (96-108); Creatinine Clr Calc Pharmacy 56.9; Estimated Glomerular Filt Rate > 60; Glucose Random 94 mg/dL (60-115); Potassium 3.8 mmol/L (3.3-5.1); Sodium 137 mmol/L (135-145); Total Protein 7.1 g/dL (6.5-8.0)
[2022-05-30 16:18] VITALS: BP 140/61; PULSE 80; RESP 16; TEMP 36.8; O2SAT 93
--- NOTE | 2022-05-30 17:11 | ECG_ITS ---
Test Reason : LOW O2 Blood Pressure : / mmHG Vent. Rate : 076 BPM Atrial Rate : 076 BPM P-R Int : 176 ms QRS Dur : 086 ms QT Int : 352 ms P-R-T Axes : 030 009 023 degrees QTc Int : 396 ms Normal sinus rhythm Normal ECG When compared with ECG of 30-MAY-2022 12:54, No significant change was found Referred By: Omar Hoover Electronically Signed By:ERIK LAURENT MD
[2022-05-30 17:35] VITALS: O2SAT 83
[2022-05-30 17:41] LABS: Venous Blood Gas Refer to POC result
[2022-05-30 17:42] LABS: VBG Base Excess 4.5 mmol/L; VBG HCO3 29 mmol/L (22-26); VBG pCO2 43 mmHg; VBG pH 7.43 (7.32-7.43); VBG pO2 39 mmHg
[2022-05-30 17:55] LABS: D Dimer High Sensitivity 9108 NG/ML
[2022-05-30 18:07] LABS: Troponin-I High Sensitivity < 3.5 ng/L (<3.5-17.0)
[2022-05-30 18:19] LABS: Influenza A PCR NEGATIVE (Negative); Influenza B PCR NEGATIVE (Negative); Resp Syncy Virus RNA Qual PCR NEGATIVE (Negative); SARS COV2 PCR INHOUSE NEGATIVE (Negative)
--- NOTE | 2022-05-30 18:24 | PC.NURSE ---
PT WAS ON 4L O2 WHEN THIS RN ASSUMED CARE OF PT, ATTEMPTED TITRATION DOWN ON O2 PT WAS UP FOR DISCHARGE BACK TO FACILITY. PT SPO2 DOWN TO 83% ON RA, RESPIRATIONS REMAINED EVEN AND NONLABOURED, PT DENIED FEELING SOB, NO CP, COMPLAINING ONLY OF WRIST AND HIP PAIN. PT REMAINED 83% ON RA DESPITE REPOSITIONING. MD AND EXPECTING FACILITY AWARE, PT REMAINS ON 3L SUPPLEMENTAL O2.
[2022-05-30] MEDS: Morphine Sulfate 2 MG/ML CARTRIDGE 1 MG IVPUSH ×2 (18:41→21:26)
[2022-05-30] MEDS: iohexoL 350 MG/ML 100 ML INFUS..BTL IV (19:53)
[2022-05-30 20:52] VITALS: BP 154/75; PULSE 94; RESP 16; TEMP 36.9; O2SAT 95
[2022-05-30] MEDS: Enoxaparin Sodium 60 MG/0.6 ML SYRINGE SUBCUT (21:51)
[2022-05-30 22:15] LABS: INTERNATIONAL NORM RATIO 1.1 (0.9-1.1); Prothrombin Time 12.1 SEC (10.0-13.1)
[2022-05-30 22:17] LABS: Partial Thromboplastin Time 29.6 SEC (26.0-36.4)
--- NOTE | 2022-05-30 22:34 | PHA.MEDREC ---
Pharmacy Consult ? Medication Reconciliation Pharmacy has completed the medication reconciliation. Spoke to caregiver at bedtime and these are the changes: metoprolol succinate 25 mg er qd (not tartrate 50mg qd) bactrim ds BID x five days (started 05/28) Seroquel 50mg QHS Duloxetine 20mg QD Gamaliel
--- NOTE | 2022-05-30 22:37 | P.HPHOSP_ITS ---
History of Present Illness Date of Service: 05/30/22 Chief Complaint: fall 82-year-old female with a past medical history of depression anxiety, HTN, chronic back pain, Alzheimer's dementia, a resident of assisted living presented to hospital with complaints of a fall. History is obtained from patient as well as her daughter at bedside. It appears the patient had woken up early in the morning, not used her walker, was moving around, when she lost her balance and fell. Denies any loss of consciousness, denies any prodromal symptoms. Reports no head injury. She has had a fall in March as well similar to today's, daughter reports it is because she forgets to use her walker. Patient is complaining of pain all over her body. While being evaluated in the ED, and being ready for discharge, patient becomes hypoxic, with O2 levels in the mid 80s. Patient has no history of COPD, no history of asthma or CHF. She is placed on 4 L of oxygen with improvement of her hypoxia. When attempted to be taken off the O2, patient desats to the 80s once again. Patient denies any chest pain no palpitations, no orthopnea or PND and no lower extremity edema. On arrival to the ED patient hemodynamically stable with slightly elevated blood pressure Labs are significant for WBC count of 8.8, hemoglobin of 12.2, hematocrit 37.2, pH of 7.43, elevated D-dimer of [address] angiogram done showed extending limited due to beam hardening artifact from hardware in the dorsal spine, filling defects in the pulmonary arteries felt to be artifact rather than true emboli caused by beam hardening from posterior rods, V/Q scan is recommended Patient given 1 dose of therapeutic Lovenox and will be admitted for further management Review of Systems Review of Systems: Yes all other systems are reviewed and are negative [facility] Medical History Alzheimer disease Chronic back pain Dementia HTN (hypertension) Squamous cell skin cancer Family History Mother Breast cancer Surgical History H/O Spinal surgery H/O: hysterectomy Social History Housing: House Alcohol intake: never Patient Tobacco Use Status: Never used Tobacco Smoked in Last 30 Days: No Second Hand Smoke Exposure: No Use of substances other than those prescribed or required for medical reasons: No Advance Directives: Yes Advance Directives on File: Yes Advance Directives Date on File: 01/19/22 service: No Current occupational status: retired Meds Allergies Allergy/AdvReac Type Severity Reaction Status Date / Time No Known Allergies Allergy Verified 05/08/22 14:44 Home Medications Medication Instructions Recorded Confirmed Last Taken Type mirabegron 50 mg tablet,extended 1 tab PO DAILY 01/19/22 05/30/22 05/30/22 History release 24 hr (Myrbetriq) multivitamin 1 tab PO DAILY 01/19/22 05/30/22 05/30/22 History ascorbic acid (vitamin C) 500 mg 500 mg PO BEDTIME 03/12/22 05/30/22 03/11/22 History tablet omeprazole 20 mg capsule,delayed 20 mg PO DAILY@0630 03/12/22 05/30/22 03/11/22 History release Lactobacillus rhamnosus GG 10 1 cap PO BID 03/21/22 05/30/22 Unknown History billion cell capsule (Culturelle) acetaminophen 500 mg tablet 1,000 mg PO TID PRN Pain 03/21/22 05/30/22 Unknown History bisacodyl 10 mg rectal suppository 10 mg IA DAILY PRN Constipation 03/21/22 05/30/22 Unknown History docusate sodium 100 mg capsule 100 mg PO BID 03/21/22 05/30/22 Unknown History (Colace) lidocaine HCl 4 % topical cream 1 appl topical QID PRN Pain 03/21/22 05/30/22 Unknown History (Aspercreme (lidocaine HCl)) oxycodone 5 mg tablet 5 mg PO Q4H PRN Pain 03/21/22 05/30/22 Unknown History polyethylene glycol 3350 17 17 g PO DAILY PRN Constipation 03/21/22 05/30/22 Unknown History gram/dose oral powder (Miralax) sennosides 8.6 mg tablet (senna) 8.6 mg PO BEDTIME PRN Constipation 03/21/22 05/30/22 Unknown History sodium phosphates 19 gram-7 118 ml IA DAILY PRN Constipation 03/21/22 05/30/22 Unknown History gram/118 mL enema (Fleet Enema) duloxetine 20 mg capsule,delayed 1 cap PO DAILY 05/30/22 05/30/22 05/30/22 History release gabapentin 100 mg capsule 1 cap PO TID 05/30/22 05/30/22 05/30/22 History metoprolol succinate 25 mg 1 tab PO DAILY 05/30/22 05/30/22 Unknown History tablet,extended release 24 hr oxycodone 5 mg tablet 5 mg PO BEDTIME 05/30/22 05/30/22 05/29/22 History quetiapine 50 mg tablet 1 tab PO BEDTIME 05/30/22 05/30/22 05/29/22 History sulfamethoxazole 800 1 tab PO BID 05/30/22 05/30/22 05/30/22 History mg-trimethoprim 160 mg tablet Physical Exam Vital Signs and Narrative: Vital Signs: Last Vital Signs Temp 98.5 F 05/30/22 20:52 Pulse 94 05/30/22 20:52 Resp 16 05/30/22 20:52 BP 154/75 H 05/30/22 20:52 Pulse Ox 95 05/30/22 20:52 O2 Del Method 05/30/22 20:52 O2 Flow Rate 4 05/30/22 20:52 BMI result Body Mass Index 21.9 Const: General: cooperative and no acute distress Orientation/consciousness: patient oriented x3 Eyes: General: appearance normal, both eyes and all related structures Resp: Effort & Inspection: normal respiratory effort Auscultation: clear to auscultation bilaterally Cardio: Rate: regular rate Rhythm: regular rhythm GI: Palpation (GI): Soft to palpation Auscultation: normal bowel sounds Skin: General skin exam: no rashes or lesions noted Neuro: General: patient oriented x3 Cognition (Neuro): normal cognition Extrem: Other: Right wrist in splint General: Yes normal to inspection and Yes no pedal edema Results Labs CBC and Chem 7: 05/30/22 12:31 05/30/22 12:31 Labs: Laboratory Results - last 24 hr 05/30/22 05/30/22 05/30/22 12:31 12:31 12:31 MCV 90.3 MCH 29.6 MCHC 32.8 RDW 14.6 Plt Count 202 MPV 8.8 L Immature Gran % (Auto) 0.2 Neut % (Auto) 87.5 H Lymph % (Auto) 7.5 L [place] % (Auto) 4.1 Eos % (Auto) 0.5 Baso % (Auto) 0.2 Lymph # (Auto) 0.7 L [place] # (Auto) 0.4 Eos # (Auto) 0.0 Baso # (Auto) 0.0 Abs Immat Gran (auto) 0.02 Absolute Neuts (auto) 7.7 Absolute Nucleated RBC 0.000 Nucleated RBC % (auto) 0.0 PT 11.0 INR 1.0 APTT D-Dimer High Sensitivty VBG pH VBG pCO2 VBG pO2 VBG HCO3 VBG O2 Saturation VBG Base Excess Anion Gap 15 Estim Creat Clear Calc 56.9 Estimated GFR > 60 Random Glucose 94 Calcium 9.4 Total Bilirubin 0.6 AST 30 ALT 27 Alkaline Phosphatase 86 Troponin I High Sens Total Protein 7.1 Albumin 4.5 Urine Color Urine Appearance Urine pH Ur Specific [place] Urine Protein Urine Glucose (UA) Urine Ketones Urine Blood Urine Nitrite Ur Leukocyte Esterase Influenza Type A (PCR) Influenza Type B (PCR) RSV RNA Qual (PCR) SARS-CoV-2 RNA (RT-PCR) 05/30/22 05/30/22 05/30/22 12:31 17:32 17:32 MCV MCH MCHC RDW Plt Count MPV Immature Gran % (Auto) Neut % (Auto) Lymph % (Auto) [place] % (Auto) Eos % (Auto) Baso % (Auto) Lymph # (Auto) [place] # (Auto) Eos # (Auto) Baso # (Auto) Abs Immat Gran (auto) Absolute Neuts (auto) Absolute Nucleated RBC Nucleated RBC % (auto) PT INR APTT D-Dimer High Sensitivty 9108 VBG pH VBG pCO2 VBG pO2 VBG HCO3 VBG O2 Saturation VBG Base Excess Anion Gap Estim Creat Clear Calc Estimated GFR Random Glucose Calcium Total Bilirubin AST ALT Alkaline Phosphatase Troponin I High Sens < 3.5 Total Protein Albumin Urine Color Yellow Urine Appearance Clear Urine pH 7.0 Ur Specific [place] 1.010 Urine Protein Negative Urine Glucose (UA) Negative Urine Ketones Negative Urine Blood Negative Urine Nitrite Negative Ur Leukocyte Esterase Negative Influenza Type A (PCR) Influenza Type B (PCR) RSV RNA Qual (PCR) SARS-CoV-2 RNA (RT-PCR) 05/30/22 05/30/22 05/30/22 17:32 17:36 22:02 MCV MCH MCHC RDW Plt Count MPV Immature Gran % (Auto) Neut % (Auto) Lymph % (Auto) [place] % (Auto) Eos % (Auto) Baso % (Auto) Lymph # (Auto) [place] # (Auto) Eos # (Auto) Baso # (Auto) Abs Immat Gran (auto) Absolute Neuts (auto) Absolute Nucleated RBC Nucleated RBC % (auto) PT 12.1 INR 1.1 APTT 29.6 D-Dimer High Sensitivty VBG pH 7.43 VBG pCO2 43 VBG pO2 39 VBG HCO3 29 H VBG O2 Saturation 62.0 VBG Base Excess 4.5 Anion Gap Estim Creat Clear Calc Estimated GFR Random Glucose Calcium Total Bilirubin AST ALT Alkaline Phosphatase Troponin I High Sens Total Protein Albumin Urine Color Urine Appearance Urine pH Ur Specific [place] Urine Protein Urine Glucose (UA) Urine Ketones Urine Blood Urine Nitrite Ur Leukocyte Esterase Influenza Type A (PCR) NEGATIVE Influenza Type B (PCR) NEGATIVE RSV RNA Qual (PCR) NEGATIVE SARS-CoV-2 RNA (RT-PCR) NEGATIVE Imaging Radiologist's Impressions: Impressions Hip X-Ray 05/30/22 12:26 IMPRESSION: Impacted distal radial fracture. Lumbar Spine X-Ray 05/30/22 12:26 IMPRESSION: Impacted distal radial fracture. Pelvis X-Ray 05/30/22 12:26 IMPRESSION: Impacted distal radial fracture. Wrist X-Ray 05/30/22 12:26 IMPRESSION: Impacted distal radial fracture. Chest X-Ray 05/30/22 18:38 IMPRESSION: 1. No radiographic evidence of acute infiltrates or failure. 2. Blunting of left costophrenic angle might be small pleural effusion or pleural thickening. Chest CTA 05/30/22 20:21 IMPRESSION: 1. Exam limited due to beam hardening artifact from hardware in the dorsal spine. 2. Filling defects in pulmonary arteries felt to be artifacts rather than true emboli caused by beam hardening from posterior rods, these are linear and do not follow the expected course of emboli. 3. If there is high index of suspicion for PE would recommend correlation with follow-up VQ scan. 4. No large central pulmonary embolus. 5. Mild infiltrate/atelectasis at right lung base. 6. Old fractures and/or thoracotomy left mid lung zone. 7. Hardware posterior fusion dorsal spine. Assessment and Plan (1) Acute respiratory failure with hypoxia: Status: Acute (2) Fracture of wrist: Qualifiers: Encounter type: initial encounter Fracture type: closed Laterality: right Qualified Code(s): S62.101A - Fracture of unspecified carpal bone, right wrist, initial encounter for closed fracture Status: Acute (3) Fall: Qualifiers: Encounter type: initial encounter Qualified Code(s): W19.XXXA - Unspecified fall, initial encounter Status: Acute Plan 82-year-old female with mention past medical history presents to the hospital after a fall found to have a wrist fracture as well as hypoxia # acute hypoxic respiratory failure - unclear etiology at this time, significantly elevated D-dimer concerning for VTE - prophylactically treated with Lovenox, pending V/Q scan CT angiogram nondiagnostic given her history of back surgery and placement of rods - patient has no evidence of pneumonia, no CHF - monitor respiratory status - continue oxygen supplement as required # wrist fracture - imaging as above - secondary to mechanical fall - splint in place - follow with orthopedic outpatient # fall - 2nd presentation with a fall - mechanical - daughter reports the patient received PT OT 3 times a day at Assisted living Facility - consider PT OT prior to discharge Quality Stroke Does the patient have a stroke diagnosis?: No VTE Prior VTE?: No VTE Risk Level:: Medical - moderate - high VTE Device Contraindication: Treatment Not Indicated VTE Drug Contraindication: N/A - Med Ordered
[2022-05-30] MEDS: LORazepam 1 MG TABLET PO (23:33)
[2022-05-30] MEDS: diphenhydrAMINE HCL 25 MG CAPSULE PO (23:33)
[2022-05-31] VITALS (8 sets, daily range): BP systolic 138–188; BP diastolic 65–80; PULSE 76–97; RESP 17–19; TEMP 36.3–37.1; O2SAT 2–99
[2022-05-31] MEDS: 0.9 % Sodium Chloride Flush 3 ML SYRINGE IVFLUSH ×3 (00:26→16:18)
[2022-05-31] MEDS: Acetaminophen 325 MG TABLET 650 MG PO ×2 (00:38→07:36)
[2022-05-31 06:50] LABS: MANUAL DIFF FLAG NO
[2022-05-31 06:57] LABS: Basophils Absolute Auto 0.1 X10*3/uL (0.0-0.2); Basophils Percent Auto 0.6 % (0-2); Eosinophils Absolute Auto 0.2 X10*3/uL (0.0-0.4); Eosinophils Percent Auto 2.4 % (0-4); Hematocrit 33.5 % (37.0-47.0); Hemoglobin 10.9 g/dl (12.0-16.0); Imm Gran Abs Auto 0.02 X10*3/uL (0.00-0.03); Imm Gran Pct Auto 0.2 % (0.0-0.4); Lymphocytes Percent Auto 10.7 % (20-40); Mean Corpuscular HGB Conc 32.5 g/dl (31.0-35.0); Mean Corpuscular Hemoglobin 29.7 pg (27.0-33.0); Mean Corpuscular Volume 91.3 fL (80.0-98.0); Mean Platelet Volume 9.1 fL (9.4-12.3); Monocytes Absolute Auto 0.4 X10*3/uL (0.1-1.2); Monocytes Percent Auto 4.9 % (2-11); Neutrophils Absolute Auto 7.3 x10*3/uL (2.0-8.3); Neutrophils Percent Auto 81.2 % (45-73); Platelet Count 187 X10*3/uL (160-400); Red Blood Count 3.67 X10*6/uL (4.20-5.50); Red Cell Distribution Width 14.9 % (11.0-16.0)
[2022-05-31 07:14] LABS: INTERNATIONAL NORM RATIO 1.2 (0.9-1.1); Prothrombin Time 13.3 SEC (10.0-13.1)
[2022-05-31 07:17] LABS: Partial Thromboplastin Time 32.5 SEC (26.0-36.4)
--- NOTE | 2022-05-31 07:24 | P.PNIM_ITS ---
Subjective Subjective Date of Service: 05/31/22 Interval History: Seen in f/u for acute hypoxic respiratory failure interval history:feels better, no hypoxia, Review of Systems no sob no chest Physical Exam Vital Signs: Vital Signs: Last Vital Signs Temp 97.5 F 05/31/22 07:16 Pulse 79 05/31/22 07:16 Resp 18 05/31/22 07:16 BP 167/79 H 05/31/22 07:16 Pulse Ox 98 05/31/22 07:16 O2 Del Method 05/31/22 07:16 O2 Flow Rate 3 05/31/22 07:16 BMI result Body Mass Index 21.9 Const: Other: General: AO X 3, no acute distress Resp: CTA bilateral CVS: S1,S2,RRR GI: +BS, NT, no distention Skin: No rash Neuro: motor grossly intact Psych: appropriate affect Objective Data Active Medications Acetaminophen (Acetaminophen 325 Mg Tablet) 650 mg PO Q6H PRN PRN Reason: Pain, Mild (Pain Scale 1-3) Last Admin: 05/31/22 00:38 Dose: 650 mg Documented By: GEORGIA Docusate Sodium (Docusate Sodium 100 Mg Capsule) 100 mg PO DAILY PRN PRN Reason: Constipation Enoxaparin Sodium (Enoxaparin Sodium 60 Mg/0.6 Ml Syringe) 60 mg 1 mg/kg (60 mg) SUBCUT Q12H SUJIT Morphine Sulfate (Morphine Sulfate 4 Mg/Ml Cartridge) 4 mg IVPUSH Q4H PRN; Protocol PRN Reason: Pain, Severe (Pain Scale 7-10) Ondansetron HCl (Ondansetron Hcl 4 Mg/2 Ml Vial) 4 mg IVPUSH Q8H PRN PRN Reason: Nausea and Vomiting Sodium Chloride (0.9 % Sodium Chloride Flush 3 Ml Syringe) 3 ml IVFLUSH QSHIFT SUJIT Last Admin: 05/31/22 00:26 Dose: 3 ml Documented By: GEORGIA Labs CBC & Chem 7: 05/31/22 06:15 05/31/22 06:15 Labs: Laboratory Results - last 24 hr 05/30/22 05/30/22 05/30/22 12:31 12:31 12:31 MCV 90.3 MCH 29.6 MCHC 32.8 RDW 14.6 Plt Count 202 MPV 8.8 L Immature Gran % (Auto) 0.2 Neut % (Auto) 87.5 H Lymph % (Auto) 7.5 L [place] % (Auto) 4.1 Eos % (Auto) 0.5 Baso % (Auto) 0.2 Lymph # (Auto) 0.7 L [place] # (Auto) 0.4 Eos # (Auto) 0.0 Baso # (Auto) 0.0 Abs Immat Gran (auto) 0.02 Absolute Neuts (auto) 7.7 Absolute Nucleated RBC 0.000 Nucleated RBC % (auto) 0.0 PT 11.0 INR 1.0 APTT D-Dimer High Sensitivty VBG pH VBG pCO2 VBG pO2 VBG HCO3 VBG O2 Saturation VBG Base Excess Anion Gap 15 Estim Creat Clear Calc 56.9 Estimated GFR > 60 Random Glucose 94 Calcium 9.4 Total Bilirubin 0.6 AST 30 ALT 27 Alkaline Phosphatase 86 Troponin I High Sens Total Protein 7.1 Albumin 4.5 Urine Color Urine Appearance Urine pH Ur Specific [place] Urine Protein Urine Glucose (UA) Urine Ketones Urine Blood Urine Nitrite Ur Leukocyte Esterase Influenza Type A (PCR) Influenza Type B (PCR) RSV RNA Qual (PCR) SARS-CoV-2 RNA (RT-PCR) 05/30/22 05/30/22 05/30/22 12:31 17:32 17:32 MCV MCH MCHC RDW Plt Count MPV Immature Gran % (Auto) Neut % (Auto) Lymph % (Auto) [place] % (Auto) Eos % (Auto) Baso % (Auto) Lymph # (Auto) [place] # (Auto) Eos # (Auto) Baso # (Auto) Abs Immat Gran (auto) Absolute Neuts (auto) Absolute Nucleated RBC Nucleated RBC % (auto) PT INR APTT D-Dimer High Sensitivty 9108 VBG pH VBG pCO2 VBG pO2 VBG HCO3 VBG O2 Saturation VBG Base Excess Anion Gap Estim Creat Clear Calc Estimated GFR Random Glucose Calcium Total Bilirubin AST ALT Alkaline Phosphatase Troponin I High Sens < 3.5 Total Protein Albumin Urine Color Yellow Urine Appearance Clear Urine pH 7.0 Ur Specific [place] 1.010 Urine Protein Negative Urine Glucose (UA) Negative Urine Ketones Negative Urine Blood Negative Urine Nitrite Negative Ur Leukocyte Esterase Negative Influenza Type A (PCR) Influenza Type B (PCR) RSV RNA Qual (PCR) SARS-CoV-2 RNA (RT-PCR) 05/30/22 05/30/22 05/30/22 17:32 17:36 22:02 MCV MCH MCHC RDW Plt Count MPV Immature Gran % (Auto) Neut % (Auto) Lymph % (Auto) [place] % (Auto) Eos % (Auto) Baso % (Auto) Lymph # (Auto) [place] # (Auto) Eos # (Auto) Baso # (Auto) Abs Immat Gran (auto) Absolute Neuts (auto) Absolute Nucleated RBC Nucleated RBC % (auto) PT 12.1 INR 1.1 APTT 29.6 D-Dimer High Sensitivty VBG pH 7.43 VBG pCO2 43 VBG pO2 39 VBG HCO3 29 H VBG O2 Saturation 62.0 VBG Base Excess 4.5 Anion Gap Estim Creat Clear Calc Estimated GFR Random Glucose Calcium Total Bilirubin AST ALT Alkaline Phosphatase Troponin I High Sens Total Protein Albumin Urine Color Urine Appearance Urine pH Ur Specific [place] Urine Protein Urine Glucose (UA) Urine Ketones Urine Blood Urine Nitrite Ur Leukocyte Esterase Influenza Type A (PCR) NEGATIVE Influenza Type B (PCR) NEGATIVE RSV RNA Qual (PCR) NEGATIVE SARS-CoV-2 RNA (RT-PCR) NEGATIVE 05/31/22 05/31/22 06:15 06:53 MCV 91.3 MCH 29.7 MCHC 32.5 RDW 14.9 Plt Count 187 MPV 9.1 L Immature Gran % (Auto) 0.2 Neut % (Auto) 81.2 H Lymph % (Auto) 10.7 L [place] % (Auto) 4.9 Eos % (Auto) 2.4 Baso % (Auto) 0.6 Lymph # (Auto) 1.0 L [place] # (Auto) 0.4 Eos # (Auto) 0.2 Baso # (Auto) 0.1 Abs Immat Gran (auto) 0.02 Absolute Neuts (auto) 7.3 Absolute Nucleated RBC 0.000 Nucleated RBC % (auto) 0.0 PT 13.3 H INR 1.2 H APTT 32.5 D-Dimer High Sensitivty VBG pH VBG pCO2 VBG pO2 VBG HCO3 VBG O2 Saturation VBG Base Excess Anion Gap Estim Creat Clear Calc Estimated GFR Random Glucose Calcium Total Bilirubin AST ALT Alkaline Phosphatase Troponin I High Sens Total Protein Albumin Urine Color Urine Appearance Urine pH Ur Specific [place] Urine Protein Urine Glucose (UA) Urine Ketones Urine Blood Urine Nitrite Ur Leukocyte Esterase Influenza Type A (PCR) Influenza Type B (PCR) RSV RNA Qual (PCR) SARS-CoV-2 RNA (RT-PCR) Assessment and Plan (1) Acute respiratory failure with hypoxia: Status: Acute (2) Fracture of wrist: Status: Acute (3) Fall: Status: Acute Plan 82-year-old female with mention past medical history presents to the hospital after a fall found to have a wrist fracture as well as hypoxia # Acute hypoxic respiratory failure, O2 83 on one single instant--? related to fall - unclear etiology at this time, significantly elevated D-dimer concerning for VTE - prophylactically treated with Lovenox, pending V/Q scan CT angiogram nondiagnostic d/t harware from prior surgery - patient has no evidence of pneumonia, no CHF - monitor respiratory status - continue oxygen supplement as required # wrist fracture - imaging as above - secondary to mechanical fall - splint in place - follow with orthopedic outpatient # fall - 2nd presentation with a fall - mechanical - daughter reports the patient received PT OT 3 times a day at Assisted living Facility - consider PT OT prior to discharge need for inaptient: ongoing work up for acute hypoxia Quality Stroke Does the patient have a stroke diagnosis?: No VTE Prior VTE?: No VTE Risk Level:: Medical - moderate - high VTE Device Contraindication: Treatment Not Indicated VTE Drug Contraindication: N/A - Med Ordered
[2022-05-31 07:30] LABS: Anion Gap 14 (12-20); Blood Urea Nitrogen 11 mg/dL (9-16); Calcium 8.8 mg/dL (8.4-10.2); Carbon Dioxide 26 mmol/L (22-29); Chloride 98 mmol/L (96-108); Creatinine Clr Calc Pharmacy 63.5; Estimated Glomerular Filt Rate > 60; Glucose Random 73 mg/dL (60-115); Sodium 134 mmol/L (135-145)
--- NOTE | 2022-05-31 09:44 | MHC.CM.PN ---
Patient has Alzheimer's Dementia and 3 Daughters are not reachable by phone (Martha @ [phone], Socorro @ [phone], Angeline @ [phone]) CM left a detailed message regarding VERMA with Martha and original will be mailed to her and a copy has been placed on the chart. Patient is from [facility] and it appears that returning there to continue that specialized care would be the plan. CM has initiated and will follow for dc planning. Patient has received Fraxion/CovFiveRuns vax x3 and the PCP/PA is Thelma Obrien.
[2022-05-31] MEDS: Enoxaparin Sodium 60 MG/0.6 ML SYRINGE SUBCUT ×2 (10:44→22:39)
[2022-05-31] MEDS: Morphine Sulfate 2 MG/ML CARTRIDGE 4 MG IVPUSH ×2 (12:32→18:01)
[2022-05-31] MEDS: Multivitamin TABLET 1 TAB PO (13:05)
[2022-05-31] MEDS: Sulfamethox/Trimeth 800/160 TABLET 1 TAB PO ×2 (13:05→22:39)
[2022-05-31] MEDS: Metoprolol Succinate ER 25 MG TAB.ER.24H PO (13:06)
[2022-05-31] MEDS: Mirabegron 50 MG TAB.ER.24H PO (13:06)
[2022-05-31] MEDS: Gabapentin 100 MG CAPSULE PO ×2 (13:06→20:05)
[2022-05-31] MEDS: Docusate Sodium 100 MG CAPSULE PO (16:18)
[2022-05-31] MEDS: Omeprazole 20 MG CAPSULE.DR PO (16:18)
[2022-05-31] MEDS: DULoxetine HCl 20 MG CAPSULE.DR PO (17:00)
[2022-05-31] MEDS: Ascorbic Acid 500 MG TABLET PO (20:05)
[2022-05-31] MEDS: oxyCODONE HCl Immed Release 5 MG TABLET PO (20:05)
[2022-05-31] MEDS: QUEtiapine Fumarate 50 MG TABLET PO (20:05)
[2022-06-01] VITALS (9 sets, daily range): BP systolic 137–163; BP diastolic 63–87; PULSE 68–79; RESP 16–20; TEMP 36.2–37.1; O2SAT 91–97; BMI 21.9
[2022-06-01] MEDS: 0.9 % Sodium Chloride Flush 3 ML SYRINGE IVFLUSH ×3 (00:16→16:39)
[2022-06-01 06:25] LABS: Hematocrit 28.7 % (37.0-47.0); Hemoglobin 9.5 g/dl (12.0-16.0); Mean Corpuscular HGB Conc 33.1 g/dl (31.0-35.0); Mean Corpuscular Volume 90.5 fL (80.0-98.0); Mean Platelet Volume 9.3 fL (9.4-12.3); Platelet Count 159 X10*3/uL (160-400); Red Blood Count 3.17 X10*6/uL (4.20-5.50); Red Cell Distribution Width 14.9 % (11.0-16.0); White Blood Count 5.2 X10*3/uL (4.8-10.8)
[2022-06-01] MEDS: Omeprazole 20 MG CAPSULE.DR PO (06:32)
[2022-06-01 06:37] LABS: INTERNATIONAL NORM RATIO 1.1 (0.9-1.1); Prothrombin Time 12.4 SEC (10.0-13.1)
[2022-06-01] MEDS: Multivitamin TABLET 1 TAB PO (08:52)
[2022-06-01] MEDS: Mirabegron 50 MG TAB.ER.24H PO (08:52)
[2022-06-01] MEDS: Metoprolol Succinate ER 25 MG TAB.ER.24H PO (08:52)
[2022-06-01] MEDS: Gabapentin 100 MG CAPSULE PO ×3 (08:52→15:48)
[2022-06-01] MEDS: Sulfamethox/Trimeth 800/160 TABLET 1 TAB PO ×2 (08:52→21:07)
[2022-06-01] MEDS: Enoxaparin Sodium 60 MG/0.6 ML SYRINGE SUBCUT (08:52)
[2022-06-01] MEDS: Docusate Sodium 100 MG CAPSULE PO ×2 (08:52→21:06)
[2022-06-01] MEDS: Morphine Sulfate 2 MG/ML CARTRIDGE 4 MG IVPUSH (09:15)
--- NOTE | 2022-06-01 09:57 | HO.PM.IMPN ---
Subjective Subjective Date of Service: 06/01/22 Interval History: Seen in f/u for acute hypoxic respiratory failure interval history:no sob, feels better, still on O2, VQ scan requested Review of Systems no sob no chest Physical Exam Vital Signs: Vital Signs: Last Vital Signs Temp 98.3 F 06/01/22 07:54 Pulse 79 06/01/22 07:54 Resp 16 06/01/22 09:15 BP 159/87 H 06/01/22 07:54 Pulse Ox 95 06/01/22 07:54 O2 Del Method 06/01/22 07:54 O2 Flow Rate 1 06/01/22 07:54 BMI result Body Mass Index 21.9 Const: Other: General: AO X 3, no acute distress Resp: CTA bilateral CVS: S1,S2,RRR GI: +BS, NT, no distention Skin: No rash, chronic stasis dermatitis changes on legs Neuro: motor grossly intact Psych: appropriate affect Objective Data Active Medications Acetaminophen (Acetaminophen 325 Mg Tablet) 650 mg PO Q6H PRN PRN Reason: Pain, Mild (Pain Scale 1-3) Last Admin: 05/31/22 07:36 Dose: 650 mg Documented By: RADHA Ascorbic Acid (Ascorbic Acid 500 Mg Tablet) 500 mg PO BEDTIME [facility] Last Admin: 05/31/22 20:05 Dose: 500 mg Documented By: FRANCIS Bisacodyl (Bisacodyl 10 Mg Supp.Rect) 10 mg [place] DAILY PRN PRN Reason: Constipation Docusate Sodium (Docusate Sodium 100 Mg Capsule) 100 mg PO DAILY PRN PRN Reason: Constipation Docusate Sodium (Docusate Sodium 100 Mg Capsule) 100 mg PO BID [facility] Last Admin: 06/01/22 08:52 Dose: 100 mg Documented By: GAVIN Duloxetine HCl (Duloxetine Hcl 20 Mg Capsule.Dr) 20 mg PO DAILY [facility] Last Admin: 05/31/22 17:00 Dose: 20 mg Documented By: FRANCIS Enoxaparin Sodium (Enoxaparin Sodium 60 Mg/0.6 Ml Syringe) 60 mg 1 mg/kg (60 mg) SUBCUT Q12H [facility] Last Admin: 06/01/22 08:52 Dose: 60 mg Documented By: GAVIN Gabapentin (Gabapentin 100 Mg Capsule) 100 mg PO TID [facility] Last Admin: 06/01/22 08:52 Dose: 100 mg Documented By: GAVIN Metoprolol Succinate (Metoprolol Succinate Er 25 Mg Tab.Er.24h) 25 mg PO DAILY [facility]; Protocol Last Admin: 06/01/22 08:52 Dose: 25 mg Documented By: GAVIN Mirabegron (Mirabegron 50 Mg Tab.Er.24h) 50 mg PO DAILY [facility] Last Admin: 06/01/22 08:52 Dose: 50 mg Documented By: GAVIN Morphine Sulfate (Morphine Sulfate 2 Mg/Ml Cartridge) 4 mg IVPUSH Q4H PRN; Protocol PRN Reason: Pain, Severe (Pain Scale 7-10) Last Admin: 06/01/22 09:15 Dose: 4 mg Documented By: GAVIN Multivitamins/Vitamin C (Multivitamin Tablet) 1 tab PO DAILY [facility] Last Admin: 06/01/22 08:52 Dose: 1 tab Documented By: GAVIN Omeprazole (Omeprazole 20 Mg Capsule.Dr) 20 mg PO DAILY@0630 [facility] Last Admin: 06/01/22 06:32 Dose: 20 mg Documented By: YORDAN Ondansetron HCl (Ondansetron Hcl 4 Mg/2 Ml Vial) 4 mg IVPUSH Q8H PRN PRN Reason: Nausea and Vomiting Oxycodone HCl (Oxycodone Hcl Immed Release 5 Mg Tablet) 5 mg PO BEDTIME [facility] Last Admin: 05/31/22 20:05 Dose: 5 mg Documented By: FRANCIS Polyethylene Glycol (Polyethylene Glycol 3350 17 Gm Powd.Pack) 17 gm PO DAILY PRN PRN Reason: Constipation Quetiapine Fumarate (Quetiapine Fumarate 50 Mg Tablet) 50 mg PO BEDTIME [facility] Last Admin: 05/31/22 20:05 Dose: 50 mg Documented By: FRANCIS Senna (Sennosides 8.6 Mg Tablet) 8.6 mg PO BEDTIME PRN PRN Reason: Constipation Sodium Biphosphate/Sodium Phosphate (Sodium Phosphate,[place]-Dibasic 133 Ml Enema) 118 ml [place] DAILY PRN PRN Reason: Constipation Sodium Chloride (0.9 % Sodium Chloride Flush 3 Ml Syringe) [facility] Last Admin: 06/01/22 08:52 Dose: 3 ml Documented By: GAVIN Trimethoprim/Sulfamethoxazole (Sulfamethox/Trimeth 800/160 Tablet) 1 tab PO BID SUJIT Last Admin: 06/01/22 08:52 Dose: 1 tab Documented By: GAVIN Trolamine Salicylate/Aloe Vera (Trolamine Salicylate 10%/Aloe Cream 35.4 Gm) 1 appl TOPICAL QID PRN PRN Reason: Pain Labs CBC & Chem 7: 06/01/22 05:36 05/31/22 06:15 Labs: Laboratory Results - last 24 hr 06/01/22 06/01/22 05:36 05:36 MCV 90.5 MCH 30.0 MCHC 33.1 RDW 14.9 Plt Count 159 L MPV 9.3 L Absolute Nucleated RBC 0.000 Nucleated RBC % (auto) 0.0 PT 12.4 INR 1.1 Assessment and Plan (1) Acute respiratory failure with hypoxia: Status: Acute (2) Fracture of wrist: Status: Acute (3) Fall: Status: Acute Plan 82-year-old female with mention past medical history presents to the hospital after a fall found to have a wrist fracture as well as hypoxia # Acute hypoxic respiratory failure, O2 83 on one single instant--? related to fall - unclear etiology at this time, significantly elevated D-dimer concerning for VTE - prophylactically treated with Lovenox, pending V/Q scan CT angiogram nondiagnostic d/t harware from prior surgery - patient has no evidence of pneumonia, no CHF - monitor respiratory status - continue oxygen supplement as required # wrist fracture - imaging as above - secondary to mechanical fall - splint in place - follow with orthopedic outpatient # fall - 2nd presentation with a fall - mechanical - daughter reports the patient received PT OT 3 times a day at Assisted living Facility - consider PT OT prior to discharge need for inaptient: ongoing work up for acute hypoxia Quality Stroke Does the patient have a stroke diagnosis?: No VTE Prior VTE?: No VTE Risk Level:: Medical - moderate - high VTE Device Contraindication: Treatment Not Indicated VTE Drug Contraindication: N/A - Med Ordered
[2022-06-01] MEDS: DULoxetine HCl 20 MG CAPSULE.DR PO (12:49)
[2022-06-01] MEDS: Morphine Sulfate 2 MG/ML CARTRIDGE IVPUSH (17:29)
[2022-06-01] MEDS: oxyCODONE HCl Immed Release 5 MG TABLET PO (21:05)
[2022-06-01] MEDS: Ascorbic Acid 500 MG TABLET PO (21:06)
[2022-06-01] MEDS: QUEtiapine Fumarate 50 MG TABLET PO (21:07)
[2022-06-02] VITALS (8 sets, daily range): BP systolic 127–183; BP diastolic 60–81; PULSE 66–80; RESP 17–22; TEMP 35.9–37.6; O2SAT 89–96; BMI 22.8
[2022-06-02] MEDS: 0.9 % Sodium Chloride Flush 3 ML SYRINGE IVFLUSH ×4 (00:15→19:53)
[2022-06-02] MEDS: Omeprazole 20 MG CAPSULE.DR PO (06:02)
[2022-06-02] MEDS: Morphine Sulfate 2 MG/ML CARTRIDGE IVPUSH ×2 (06:03→14:26)
[2022-06-02] MEDS: Acetaminophen 325 MG TABLET 650 MG PO (08:06)
[2022-06-02] MEDS: Multivitamin TABLET 1 TAB PO (08:07)
[2022-06-02] MEDS: Mirabegron 50 MG TAB.ER.24H PO (08:07)
[2022-06-02] MEDS: Docusate Sodium 100 MG CAPSULE PO ×2 (08:07→19:52)
[2022-06-02] MEDS: Metoprolol Succinate ER 25 MG TAB.ER.24H PO (08:07)
[2022-06-02] MEDS: Sulfamethox/Trimeth 800/160 TABLET 1 TAB PO ×2 (08:07→19:52)
[2022-06-02] MEDS: DULoxetine HCl 20 MG CAPSULE.DR PO (08:07)
[2022-06-02] MEDS: Gabapentin 100 MG CAPSULE PO ×3 (08:07→19:53)
--- NOTE | 2022-06-02 10:53 | P.PNIM_ITS ---
Subjective Subjective Date of Service: 06/02/22 Interval History: Seen in f/u for acute hypoxic respiratory failure interval history: VQ negative, has pain in the back, no sob Review of Systems no sob no chest Physical Exam Vital Signs: Vital Signs: Last Vital Signs Temp 97.2 F 06/02/22 07:02 Pulse 67 06/02/22 07:02 Resp 18 06/02/22 07:02 BP 133/75 06/02/22 07:02 Pulse Ox 96 06/02/22 07:02 O2 Del Method 06/02/22 07:02 O2 Flow Rate 1 06/02/22 07:02 BMI result Body Mass Index 22.8 Const: Other: General: AO X 3, no acute distress Resp: CTA bilateral CVS: S1,S2,RRR GI: +BS, NT, no distention Skin: No rash, chronic stasis dermatitis changes on legs Neuro: motor grossly intact Psych: appropriate affect Objective Data Active Medications Acetaminophen (Acetaminophen 325 Mg Tablet) 650 mg PO Q6H PRN PRN Reason: Pain, Mild (Pain Scale 1-3) Last Admin: 06/02/22 08:06 Dose: 650 mg Documented By: MECHELLE Ascorbic Acid (Ascorbic Acid 500 Mg Tablet) 500 mg PO BEDTIME [facility] Last Admin: 06/01/22 21:06 Dose: 500 mg Documented By: FRANCIS Bisacodyl (Bisacodyl 10 Mg Supp.Rect) 10 mg [place] DAILY PRN PRN Reason: Constipation Docusate Sodium (Docusate Sodium 100 Mg Capsule) 100 mg PO DAILY PRN PRN Reason: Constipation Docusate Sodium (Docusate Sodium 100 Mg Capsule) 100 mg PO BID [facility] Last Admin: 06/02/22 08:07 Dose: 100 mg Documented By: MECHELLE Duloxetine HCl (Duloxetine Hcl 20 Mg Capsule.Dr) 20 mg PO DAILY [facility] Last Admin: 06/02/22 08:07 Dose: 20 mg Documented By: MECHELLE Gabapentin (Gabapentin 100 Mg Capsule) 100 mg PO TID [facility] Last Admin: 06/02/22 08:07 Dose: 100 mg Documented By: MECHELLE Metoprolol Succinate (Metoprolol Succinate Er 25 Mg Tab.Er.24h) 25 mg PO DAILY [facility]; Protocol Last Admin: 06/02/22 08:07 Dose: 25 mg Documented By: MECHELLE Mirabegron (Mirabegron 50 Mg Tab.Er.24h) 50 mg PO DAILY [facility] Last Admin: 06/02/22 08:07 Dose: 50 mg Documented By: MECHELLE Morphine Sulfate (Morphine Sulfate 2 Mg/Ml Cartridge) 2 mg IVPUSH Q4H PRN; Protocol PRN Reason: Pain, Severe (Pain Scale 7-10) Last Admin: 06/02/22 06:03 Dose: 2 mg Documented By: JOYCE Multivitamins/Vitamin C (Multivitamin Tablet) 1 tab PO DAILY [facility] Last Admin: 06/02/22 08:07 Dose: 1 tab Documented By: MECHELLE Omeprazole (Omeprazole 20 Mg Capsule.Dr) 20 mg PO DAILY@0630 [facility] Last Admin: 06/02/22 06:02 Dose: 20 mg Documented By: JOYCE Ondansetron HCl (Ondansetron Hcl 4 Mg/2 Ml Vial) 4 mg IVPUSH Q8H PRN PRN Reason: Nausea and Vomiting Oxycodone HCl (Oxycodone Hcl Immed Release 5 Mg Tablet) 5 mg PO BEDTIME [facility] Last Admin: 06/01/22 21:05 Dose: 5 mg Documented By: FRANCIS Polyethylene Glycol (Polyethylene Glycol 3350 17 Gm Powd.Pack) 17 gm PO DAILY PRN PRN Reason: Constipation Quetiapine Fumarate (Quetiapine Fumarate 50 Mg Tablet) 50 mg PO BEDTIME [facility] Last Admin: 06/01/22 21:07 Dose: 50 mg Documented By: FRANCIS Senna (Sennosides 8.6 Mg Tablet) 8.6 mg PO BEDTIME PRN PRN Reason: Constipation Sodium Biphosphate/Sodium Phosphate (Sodium Phosphate,[place]-Dibasic 133 Ml Enema) 118 ml [place] DAILY PRN PRN Reason: Constipation Sodium Chloride (0.9 % Sodium Chloride Flush 3 Ml Syringe) 3 ml IVFLUSH QSHIFT [facility] Last Admin: 06/02/22 08:08 Dose: 3 ml Documented By: MECHELLE Trimethoprim/Sulfamethoxazole (Sulfamethox/Trimeth 800/160 Tablet) 1 tab PO BID [facility] Last Admin: 06/02/22 08:07 Dose: 1 tab Documented By: MECHELLE Trolamine Salicylate/Aloe Vera (Trolamine Salicylate 10%/Aloe Cream 35.4 Gm) 1 appl TOPICAL QID PRN PRN Reason: Pain Labs CBC & Chem 7: 06/01/22 05:36 05/31/22 06:15 Assessment and Plan (1) Acute respiratory failure with hypoxia: Status: Acute (2) Fracture of wrist: Status: Acute (3) Fall: Status: Acute Plan 82-year-old female with mention past medical history presents to the hospital after a fall found to have a wrist fracture as well as hypoxia # Acute hypoxic respiratory failure, O2 83 on one single instant--? related to fall and pain. O2 is much better. Has no PE so Lovenox stopped. wean off O2 # wrist fracture - imaging as above - secondary to mechanical fall - splint in place - follow with orthopedic outpatient # fall - 2nd presentation with a fall - mechanical - daughter reports the patient received PT OT 3 times a day at Assisted living Facility - consider PT OT prior to discharge need for inaptient: needs placement Quality Stroke Does the patient have a stroke diagnosis?: No VTE Prior VTE?: No VTE Risk Level:: Medical - moderate - high VTE Device Contraindication: Treatment Not Indicated VTE Drug Contraindication: N/A - Med Ordered
[2022-06-02] MEDS: oxyCODONE HCl Immed Release 5 MG TABLET PO (19:52)
[2022-06-02] MEDS: Ascorbic Acid 500 MG TABLET PO (19:53)
[2022-06-02] MEDS: QUEtiapine Fumarate 50 MG TABLET PO (19:53)
[2022-06-03 03:17] VITALS: BP 163/71; PULSE 85; RESP 18; TEMP 36.2; O2SAT 90
[2022-06-03] MEDS: Omeprazole 20 MG CAPSULE.DR PO (05:45)
[2022-06-03 05:48] VITALS: BMI 22.6
[2022-06-03 08:00] VITALS: BP 179/81; PULSE 67; RESP 18; TEMP 37.1; O2SAT 93
[2022-06-03] MEDS: 0.9 % Sodium Chloride Flush 3 ML SYRINGE IVFLUSH ×3 (09:22→20:38)
[2022-06-03] MEDS: Sulfamethox/Trimeth 800/160 TABLET 1 TAB PO ×2 (09:23→20:38)
[2022-06-03] MEDS: Mirabegron 50 MG TAB.ER.24H PO (09:23)
[2022-06-03] MEDS: Docusate Sodium 100 MG CAPSULE PO ×2 (09:23→20:38)
[2022-06-03] MEDS: Metoprolol Succinate ER 25 MG TAB.ER.24H PO (09:23)
[2022-06-03] MEDS: Gabapentin 100 MG CAPSULE PO ×3 (09:23→20:38)
[2022-06-03] MEDS: Multivitamin TABLET 1 TAB PO (09:23)
[2022-06-03] MEDS: Morphine Sulfate 2 MG/ML CARTRIDGE IVPUSH ×2 (09:33→15:48)
[2022-06-03] MEDS: DULoxetine HCl 20 MG CAPSULE.DR PO (09:42)
--- NOTE | 2022-06-03 10:00 | HO.PM.IMPN ---
Subjective Subjective Date of Service: 06/03/22 Interval History: Seen in f/u for acute hypoxic respiratory failure interval history:doing beter, pain is better, in need of no O2, PT recommending STR Review of Systems no sob no chest Physical Exam Vital Signs: Vital Signs: Last Vital Signs Temp 98.7 F 06/03/22 08:00 Pulse 67 06/03/22 08:00 Resp 18 06/03/22 08:00 BP 179/81 H 06/03/22 08:00 Pulse Ox 93 06/03/22 08:00 O2 Del Method 06/03/22 08:00 O2 Flow Rate 1 06/02/22 07:02 BMI result Body Mass Index 22.6 Const: Other: General: AO X 3, no acute distress Resp: CTA bilateral CVS: S1,S2,RRR GI: +BS, NT, no distention Skin: No rash, chronic stasis dermatitis changes on legs Neuro: motor grossly intact Psych: appropriate affect Objective Data Active Medications Acetaminophen (Acetaminophen 325 Mg Tablet) 650 mg PO Q6H PRN PRN Reason: Pain, Mild (Pain Scale 1-3) Last Admin: 06/02/22 08:06 Dose: 650 mg Documented By: MECHELLE Ascorbic Acid (Ascorbic Acid 500 Mg Tablet) 500 mg PO BEDTIME [facility] Last Admin: 06/02/22 19:53 Dose: 500 mg Documented By: MECCA Bisacodyl (Bisacodyl 10 Mg Supp.Rect) 10 mg IN DAILY PRN PRN Reason: Constipation Docusate Sodium (Docusate Sodium 100 Mg Capsule) 100 mg PO DAILY PRN PRN Reason: Constipation Docusate Sodium (Docusate Sodium 100 Mg Capsule) 100 mg PO BID [facility] Last Admin: 06/03/22 09:23 Dose: 100 mg Documented By: MECHELLE Duloxetine HCl (Duloxetine Hcl 20 Mg Capsule.Dr) 20 mg PO DAILY [facility] Last Admin: 06/03/22 09:42 Dose: 20 mg Documented By: MECHELLE Gabapentin (Gabapentin 100 Mg Capsule) 100 mg PO TID [facility] Last Admin: 06/03/22 09:23 Dose: 100 mg Documented By: MECHELLE Metoprolol Succinate (Metoprolol Succinate Er 25 Mg Tab.Er.24h) 25 mg PO DAILY [facility]; Protocol Last Admin: 06/03/22 09:23 Dose: 25 mg Documented By: MECHELLE Mirabegron (Mirabegron 50 Mg Tab.Er.24h) 50 mg PO DAILY [facility] Last Admin: 06/03/22 09:23 Dose: 50 mg Documented By: MECHELLE Morphine Sulfate (Morphine Sulfate 2 Mg/Ml Cartridge) 2 mg IVPUSH Q4H PRN; Protocol PRN Reason: Pain, Severe (Pain Scale 7-10) Last Admin: 06/03/22 09:33 Dose: 2 mg Documented By: MECHELLE Multivitamins/Vitamin C (Multivitamin Tablet) 1 tab PO DAILY [facility] Last Admin: 06/03/22 09:23 Dose: 1 tab Documented By: MECHELLE Omeprazole (Omeprazole 20 Mg Capsule.Dr) 20 mg PO DAILY@0630 [facility] Last Admin: 06/03/22 05:45 Dose: 20 mg Documented By: MECCA Ondansetron HCl (Ondansetron Hcl 4 Mg/2 Ml Vial) 4 mg IVPUSH Q8H PRN PRN Reason: Nausea and Vomiting Oxycodone HCl (Oxycodone Hcl Immed Release 5 Mg Tablet) 5 mg PO BEDTIME [facility] Last Admin: 06/02/22 19:52 Dose: 5 mg Documented By: MECCA Polyethylene Glycol (Polyethylene Glycol 3350 17 Gm Powd.Pack) 17 gm PO DAILY PRN PRN Reason: Constipation Quetiapine Fumarate (Quetiapine Fumarate 50 Mg Tablet) 50 mg PO BEDTIME [facility] Last Admin: 06/02/22 19:53 Dose: 50 mg Documented By: MECCA Senna (Sennosides 8.6 Mg Tablet) 8.6 mg PO BEDTIME PRN PRN Reason: Constipation Sodium Biphosphate/Sodium Phosphate (Sodium Phosphate,[place]-Dibasic 133 Ml Enema) 118 ml IN DAILY PRN PRN Reason: Constipation Sodium Chloride (0.9 % Sodium Chloride Flush 3 Ml Syringe) 3 ml IVFLUSH QSHIFT [facility] Last Admin: 06/03/22 09:22 Dose: 3 ml Documented By: MECHELLE Trimethoprim/Sulfamethoxazole (Sulfamethox/Trimeth 800/160 Tablet) 1 tab PO BID [facility] Last Admin: 06/03/22 09:23 Dose: 1 tab Documented By: MECHLELE Trolamine Salicylate/Aloe Vera (Trolamine Salicylate 10%/Aloe Cream 35.4 Gm) 1 appl TOPICAL QID PRN PRN Reason: Pain Labs CBC & Chem 7: 06/01/22 05:36 05/31/22 06:15 Assessment and Plan (1) Fracture of wrist: Status: Acute (2) Acute respiratory failure with hypoxia: Status: Acute (3) Fall: Status: Acute Plan 82-year-old female with mention past medical history presents to the hospital after a fall found to have a wrist fracture as well as hypoxia # Acute hypoxic respiratory failure, O2 83 on one single instant--? related to fall and pain. O2 is much better. Has no PE so Lovenox stopped. wean off O2 # wrist - secondary to mechanical fallfracture -splinter in place - splint in place - follow with orthopedic outpatient # fall - 2nd presentation with a fall - mechanical - daughter reports the patient received PT OT 3 times a day at Assisted living Facility - PT is recommending STR need for inaptient: needs placement Quality Stroke Does the patient have a stroke diagnosis?: No VTE Prior VTE?: No VTE Risk Level:: Medical - moderate - high VTE Device Contraindication: Treatment Not Indicated VTE Drug Contraindication: N/A - Med Ordered
[2022-06-03 11:22] VITALS: BP 144/64; PULSE 63; RESP 16; TEMP 36.7; O2SAT 95
[2022-06-03 15:36] VITALS: BP 158/70; PULSE 66; RESP 18; TEMP 37.6; O2SAT 93
[2022-06-03 19:39] VITALS: BP 185/80; PULSE 68; RESP 17; TEMP 36.6; O2SAT 93
[2022-06-03] MEDS: Ascorbic Acid 500 MG TABLET PO (20:36)
[2022-06-03] MEDS: oxyCODONE HCl Immed Release 5 MG TABLET PO (20:38)
[2022-06-03] MEDS: QUEtiapine Fumarate 50 MG TABLET PO (20:38)
[2022-06-04] VITALS (7 sets, daily range): BP systolic 145–190; BP diastolic 69–79; PULSE 62–77; RESP 12–19; TEMP 36–37.1; O2SAT 92–96
[2022-06-04] MEDS: Omeprazole 20 MG CAPSULE.DR PO (05:44)
[2022-06-04] MEDS: Morphine Sulfate 2 MG/ML CARTRIDGE IVPUSH ×2 (05:45→16:03)
[2022-06-04] MEDS: Multivitamin TABLET 1 TAB PO (08:42)
[2022-06-04] MEDS: Sulfamethox/Trimeth 800/160 TABLET 1 TAB PO ×2 (08:42→20:41)
[2022-06-04] MEDS: Mirabegron 50 MG TAB.ER.24H PO (08:43)
[2022-06-04] MEDS: DULoxetine HCl 20 MG CAPSULE.DR PO (08:43)
[2022-06-04] MEDS: Docusate Sodium 100 MG CAPSULE PO ×2 (08:43→20:41)
[2022-06-04] MEDS: Metoprolol Succinate ER 25 MG TAB.ER.24H PO (08:43)
[2022-06-04] MEDS: 0.9 % Sodium Chloride Flush 3 ML SYRINGE IVFLUSH ×3 (08:43→20:42)
[2022-06-04] MEDS: Gabapentin 100 MG CAPSULE PO ×3 (08:43→20:41)
--- NOTE | 2022-06-04 09:23 | P.PNIM_ITS ---
Subjective Subjective Date of Service: 06/04/22 Physical Exam Vital Signs: Vital Signs: Last Vital Signs Temp 98.8 F 06/04/22 08:00 Pulse 62 06/04/22 08:00 Resp 12 06/04/22 08:00 BP 154/70 H 06/04/22 08:00 Pulse Ox 92 06/04/22 08:00 O2 Del Method 06/04/22 08:00 O2 Flow Rate 1 06/02/22 07:02 BMI result Body Mass Index 22.6 Objective Data Active Medications Acetaminophen (Acetaminophen 325 Mg Tablet) 650 mg PO Q6H PRN PRN Reason: Pain, Mild (Pain Scale 1-3) Last Admin: 06/02/22 08:06 Dose: 650 mg Documented By: MECHELLE Ascorbic Acid (Ascorbic Acid 500 Mg Tablet) 500 mg PO BEDTIME [facility] Last Admin: 06/03/22 20:36 Dose: 500 mg Documented By: LIDA Bisacodyl (Bisacodyl 10 Mg Supp.Rect) 10 mg [place] DAILY PRN PRN Reason: Constipation Docusate Sodium (Docusate Sodium 100 Mg Capsule) 100 mg PO DAILY PRN PRN Reason: Constipation Docusate Sodium (Docusate Sodium 100 Mg Capsule) 100 mg PO BID [facility] Last Admin: 06/04/22 08:43 Dose: 100 mg Documented By: CALVIN Duloxetine HCl (Duloxetine Hcl 20 Mg Capsule.Dr) 20 mg PO DAILY [facility] Last Admin: 06/04/22 08:43 Dose: 20 mg Documented By: CALVIN Gabapentin (Gabapentin 100 Mg Capsule) 100 mg PO TID [facility] Last Admin: 06/04/22 08:43 Dose: 100 mg Documented By: CALVIN Metoprolol Succinate (Metoprolol Succinate Er 25 Mg Tab.Er.24h) 25 mg PO DAILY [facility]; Protocol Last Admin: 06/04/22 08:43 Dose: 25 mg Documented By: CALVIN Mirabegron (Mirabegron 50 Mg Tab.Er.24h) 50 mg PO DAILY [facility] Last Admin: 06/04/22 08:43 Dose: 50 mg Documented By: CALVIN Morphine Sulfate (Morphine Sulfate 2 Mg/Ml Cartridge) 2 mg IVPUSH Q4H PRN; Protocol PRN Reason: Pain, Severe (Pain Scale 7-10) Last Admin: 06/04/22 05:45 Dose: 2 mg Documented By: LIDA Multivitamins/Vitamin C (Multivitamin Tablet) 1 tab PO DAILY [facility] Last Admin: 06/04/22 08:42 Dose: 1 tab Documented By: CALVIN Omeprazole (Omeprazole 20 Mg Capsule.Dr) 20 mg PO DAILY@0630 [facility] Last Admin: 06/04/22 05:44 Dose: 20 mg Documented By: LIDA Ondansetron HCl (Ondansetron Hcl 4 Mg/2 Ml Vial) 4 mg IVPUSH Q8H PRN PRN Reason: Nausea and Vomiting Oxycodone HCl (Oxycodone Hcl Immed Release 5 Mg Tablet) 5 mg PO BEDTIME [facility] Last Admin: 06/03/22 20:38 Dose: 5 mg Documented By: LIDA Polyethylene Glycol (Polyethylene Glycol 3350 17 Gm Powd.Pack) 17 gm PO DAILY PRN PRN Reason: Constipation Quetiapine Fumarate (Quetiapine Fumarate 50 Mg Tablet) 50 mg PO BEDTIME [facility] Last Admin: 06/03/22 20:38 Dose: 50 mg Documented By: LIDA Senna (Sennosides 8.6 Mg Tablet) 8.6 mg PO BEDTIME PRN PRN Reason: Constipation Sodium Biphosphate/Sodium Phosphate (Sodium Phosphate,[place]-Dibasic 133 Ml Enema) 118 ml [place] DAILY PRN PRN Reason: Constipation Sodium Chloride (0.9 % Sodium Chloride Flush 3 Ml Syringe) 3 ml IVFLUSH QSHIFT [facility] Last Admin: 06/04/22 08:43 Dose: 3 ml Documented By: CALVIN Trimethoprim/Sulfamethoxazole (Sulfamethox/Trimeth 800/160 Tablet) 1 tab PO BID [facility] Last Admin: 06/04/22 08:42 Dose: 1 tab Documented By: CALVIN Trolamine Salicylate/Aloe Vera (Trolamine Salicylate 10%/Aloe Cream 35.4 Gm) 1 appl TOPICAL QID PRN PRN Reason: Pain Labs CBC & Chem 7: 06/01/22 05:36 05/31/22 06:15 Assessment and Plan (1) Fracture of wrist: Status: Acute (2) Acute respiratory failure with hypoxia: Status: Acute (3) Fall: Status: Acute Plan 82-year-old female with mention past medical history presents to the hospital after a fall found to have a wrist fracture as well as hypoxia # Acute hypoxic respiratory failure, O2 83 on one single instant--? related to fall and pain. O2 is much better. Has no PE so Lovenox stopped. Off O2 # wrist - secondary to mechanical fallfracture -splinter in place - splint in place - follow with orthopedic outpatient # fall - 2nd presentation with a fall - mechanical - daughter reports the patient received PT OT 3 times a day at Assisted living Facility - PT is recommending STR need for inaptient: needs placement Quality Stroke Does the patient have a stroke diagnosis?: No VTE Prior VTE?: No VTE Risk Level:: Medical - moderate - high VTE Device Contraindication: Treatment Not Indicated VTE Drug Contraindication: N/A - Med Ordered
--- NOTE | 2022-06-04 13:48 | MHC.CM.PN ---
Per ROUNDS discussion, Patient can be medically cleared for dc;PT is recommending STR. CM has left a detailed message for Patient's Primary Contact/Daughter/Martha @ listed number and CM awaits response to discuss SNF choices. CM will follow.(Patient has Dementia).
--- NOTE | 2022-06-04 15:53 | MHC.CM.PN ---
CM received a return call from Patient's Daughter/Martha. Martha stated that her Mother will be returning to [facility], not to Pt's recommended STR. Martha requested that her Mother work with PT while she is here to show that she is able to walk and therefor can return to [facility]. This CM fung relayed this request to MD and PT. CM will follow.
[2022-06-04] MEDS: Milk of Magnesia 30 ML ORAL.SUSP PO (17:21)
[2022-06-04] MEDS: Enoxaparin Sodium 40 MG/0.4 ML SYRINGE SUBCUT (17:21)
[2022-06-04] MEDS: QUEtiapine Fumarate 50 MG TABLET PO (20:41)
[2022-06-04] MEDS: Ascorbic Acid 500 MG TABLET PO (20:41)
[2022-06-04] MEDS: oxyCODONE HCl Immed Release 5 MG TABLET PO (20:41)
[2022-06-05] VITALS: BP 131/81; PULSE 80; RESP 20; TEMP 36.9; O2SAT 94
[2022-06-05] MEDS: Morphine Sulfate 2 MG/ML CARTRIDGE IVPUSH ×3 (00:25→14:23)
[2022-06-05 04:00] VITALS: BP 180/77; PULSE 62; RESP 20; TEMP 36.6; O2SAT 95
[2022-06-05] MEDS: Omeprazole 20 MG CAPSULE.DR PO (05:51)
[2022-06-05 06:31] LABS: Hematocrit 33.5 % (37.0-47.0); Hemoglobin 11.1 g/dl (12.0-16.0); Mean Corpuscular HGB Conc 33.1 g/dl (31.0-35.0); Mean Corpuscular Hemoglobin 29.7 pg (27.0-33.0); Mean Corpuscular Volume 89.6 fL (80.0-98.0); Mean Platelet Volume 8.9 fL (9.4-12.3); Platelet Count 211 X10*3/uL (160-400); Red Blood Count 3.74 X10*6/uL (4.20-5.50); Red Cell Distribution Width 14.7 % (11.0-16.0); White Blood Count 4.4 X10*3/uL (4.8-10.8)
[2022-06-05 07:23] VITALS: BP 166/71; PULSE 61; RESP 18; TEMP 36.1; O2SAT 97
--- NOTE | 2022-06-05 08:41 | P.DS_ITS ---
DS: Providers Provider Date of Service: 06/05/22 Date of admission: 06/01/22 13:04 Primary care physician: LUIS A Barry DS: Diagnosis Discharge Diagnosis (1) Fracture of wrist: Status: Acute (2) Acute respiratory failure with hypoxia: Status: Resolved (3) Fall: Status: Resolved DS: Summary Hospital Course Hospital Course: Chief Complaint: fall 82-year-old female with a past medical history of depression anxiety, HTN, chronic back pain, Alzheimer's dementia, a resident of assisted living presented to hospital with complaints of a fall.? History is obtained from patient as well as her daughter at bedside.? It appears the patient had woken up early in the morning, not used her walker, was moving around, when she lost her balance and fell.? Denies any loss of consciousness, denies any prodromal symptoms.? Reports no head injury.? She has had a fall in March as well similar to today's, daughter reports it is because she forgets to use her walker.? Patient is c omplaining of pain all over her body. While being evaluated in the ED, and being ready for discharge, patient becomes hypoxic, with O2 levels in the mid 80s.? Patient has no history of COPD, no history of asthma or CHF.? She is placed on 4 L of oxygen with improvement of her hypoxia.? When attempted to be taken off the O2, patient desats to the 80s once again.? Patient denies any chest pain no palpitations, no orthopnea or PND and no lower extremity edema.? On arrival to the ED patient hemodynamically stable with slightly elevated blood pressure Labs are significant for WBC count of 8.8, hemoglobin of 12.2, hematocrit 37.2, pH of 7.43, elevated D-dimer of [address] angiogram done showed extending limited due to beam hardening artifact from hardware in the dorsal spine, filling defects in the pulmonary arteries felt to be artifact rather than true emboli caused by beam hardening from posterior rods, V/Q scan is recommended Patient given 1 dose of therapeutic Lovenox and will be admitted for further management Hospital course: # Acute hypoxic respiratory failure, O2 83 on one single instant--? related to fall and pain. Hypoxia has essentially resolved on its own # wrist? - secondary to mechanical fallfracture -splinter in place - follow with orthopedic outpatient # fall - 2nd presentation with a fall - mechanical -Rehab at [facility] #Constipation: bowel regimen need for inaptient: needs placement Time Spent with Patient Time attestation: Total time spent providing and/or coordinating discharge services: Discharge coordination time: Greater than 30 minutes Quality: Safe Use of Opioids Does Pt have an Active Cancer Diagnosis on the Problem List?: No Quality: Stroke Does the patient have a stroke diagnosis?: No Physical Exam Vital Signs: Vital Signs: Last Vital Signs Temp 96.9 F 06/05/22 07:23 Pulse 61 06/05/22 07:23 Resp 18 06/05/22 07:23 BP 166/71 H 06/05/22 07:23 Pulse Ox 97 06/05/22 07:23 O2 Del Method 06/05/22 07:23 O2 Flow Rate 1 06/02/22 07:02 BMI result Body Mass Index 22.6 Const: Other: General: AO X 3, no acute distress Resp: CTA bilateral CVS: S1,S2,RRR GI: +BS, NT, no distention Skin: No rash Neuro: motor grossly intact Psych: appropriate affect DS: Data Data Completed and Pending Labs on day of discharge: Laboratory Results - last 24 hr 06/05/22 06:02 WBC 4.4 L RBC 3.74 L Hgb 11.1 L Hct 33.5 L MCV 89.6 MCH 29.7 MCHC 33.1 RDW 14.7 Plt Count 211 D MPV 8.9 L Absolute Nucleated RBC 0.000 Nucleated RBC % (auto) 0.0 Discharge Plan Discharge Anticipated Discharge Date/Time: 06/05/22 08:36 Patient Disposition: Xfer [facility] Discharge Diagnosis: Acute respiratory failure, fall wrist fracture Referrals: shawn carrillo [Other] - 1 Week Joey Martinez PA-C [Physician Wastewater Process Engineer] - 1 week Thelma Obrien PA [Primary Care Provider] - 1 Week Discharge Medications: New docusate sodium 100 mg Capsule 100 mg PO DAILY PRN (Reason: Constipation) Qty: 30 0RF polyethylene glycol 3350 [Miralax] 17 gram/dose powder 17 g PO DAILY Qty: 238 0RF Continued multivitamin Tablet 1 tab PO DAILY Myrbetriq 50 mg tablet extended release 24 hr 1 tab PO DAILY duloxetine 20 mg capsule,delayed release(DR/EC) 1 cap PO DAILY quetiapine 50 mg tablet 1 tab PO BEDTIME sulfamethoxazole-trimethoprim 800-160 mg tablet 1 tab PO BID Rx Instructions: for 5 days gabapentin 100 mg capsule 1 cap PO TID metoprolol succinate 25 mg tablet extended release 24 hr 1 tab PO DAILY oxycodone 5 mg tablet 5 mg PO BEDTIME ascorbic acid (vitamin C) 500 mg Tablet 500 mg PO BEDTIME omeprazole 20 mg Capsule,Delayed Release(Dr/Ec) 20 mg PO DAILY@0630 sennosides [senna] 8.6 mg Tablet 8.6 mg PO BEDTIME PRN (Reason: Constipation) acetaminophen 500 mg Tablet 1,000 mg PO TID PRN (Reason: Pain) bisacodyl 10 mg Suppository 10 mg ME DAILY PRN (Reason: Constipation) Fleet Enema 19-7 gram/118 mL Enema 118 ml ME DAILY PRN (Reason: Constipation) docusate sodium [Colace] 100 mg Capsule 100 mg PO BID polyethylene glycol 3350 [Miralax] 17 gram/dose Powder 17 g PO DAILY PRN (Reason: Constipation) Culturelle 10 billion cell Capsule 1 cap PO BID oxycodone 5 mg Tablet 5 mg PO Q4H PRN (Reason: Pain) lidocaine HCl [Aspercreme (lidocaine HCl)] 4 % Cream 1 appl TOPICAL QID PRN (Reason: Pain) Discharge Orders: Discharge Order (Routine); Ordered 06/05/22 Ordered By: Geo Frazier Diet: Advance to usual diet Activity on Discharge: As tolerated Stand Alone Forms: Patient Portal Discharge page Care Plan Goals: Full recovery from fall, wrist fracture Health Concerns: fall, wrist fracutre, fall Plan of Treatment: rehab follow up with ortho for wrist fracture Assessment: as above Patient Instructions: Arm Fracture in Adults (ED) Discharge Date/Time: 06/05/22 18:41
[2022-06-05] MEDS: Sulfamethox/Trimeth 800/160 TABLET 1 TAB PO (08:54)
[2022-06-05] MEDS: Multivitamin TABLET 1 TAB PO (08:54)
[2022-06-05] MEDS: Mirabegron 50 MG TAB.ER.24H PO (08:54)
[2022-06-05] MEDS: Docusate Sodium 100 MG CAPSULE PO (08:54)
[2022-06-05] MEDS: Metoprolol Succinate ER 25 MG TAB.ER.24H PO (08:54)
[2022-06-05] MEDS: Gabapentin 100 MG CAPSULE PO ×2 (08:54→14:23)
[2022-06-05] MEDS: DULoxetine HCl 20 MG CAPSULE.DR PO (08:55)
[2022-06-05] MEDS: 0.9 % Sodium Chloride Flush 3 ML SYRINGE IVFLUSH ×2 (08:55→16:46)
[2022-06-05 11:47] VITALS: BP 163/69; PULSE 62; RESP 18; TEMP 36.9; O2SAT 95
--- NOTE | 2022-06-05 12:54 | MHC.CM.PN ---
spoke with stephanie zambrano and sixto at [facility] aware dc is today amb set up for 3 30 enhabit vna notified of dc
[2022-06-05 15:14] VITALS: BP 158/70; PULSE 69; RESP 18; TEMP 36.3; O2SAT 96
[2022-06-05] MEDS: Sodium Phosphate,Mono-Dibasic 133 ML ENEMA PR (16:46)
[2022-06-05] MEDS: Enoxaparin Sodium 40 MG/0.4 ML SYRINGE SUBCUT (16:49)
--- NOTE | 2022-06-05 17:55 | PC.NURSE ---
report received from overnight RN, medical auditor per SEP. pt to be discharged today waiting for BM - fleet enema given per SEP with good effect. Pt had large formed BM. IV removed for discharge, belongings returned. EMS to transport, warm handover given.
== END 2022-06-05 18:41 | disposition skilled nursing facility (03) | DRG 562 ==
LOC: HO.ED 17:12 → HO.EDOVER 22:54 → HO.IMC 23:17
PROVIDERS: Student in an Organized Health Care Education/Training Program; Admitting Provider Internal Medicine; Emergency Provider Emergency Medicine; PCP Physician Assistant Medical; Visit Provider Internal Medicine
DX: S52.501A Unspecified fracture of the lower end of right radius, initial encounter for closed fracture (principal); J96.01 Acute respiratory failure with hypoxia; W19.XXXA Unspecified fall, initial encounter; M54.9 Dorsalgia, unspecified; G30.9 Alzheimer's disease, unspecified; I10 Essential (primary) hypertension; F02.80 Dementia in other diseases classified elsewhere, unspecified severity, without behavioral disturbance, psychotic disturbance, mood disturbance, and anxiety; G89.29 Other chronic pain; Z20.822 Contact with and (suspected) exposure to COVID-19; Z79.899 Other long term (current) drug therapy
CPT/HCPCS: 0241U; 36415; 71045; 71275; 72100; 72170; 73100; 73502; 78580; 80048; 80053; 81003; 82803; 84484; 85025; 85027; 85379; 85610; 85730; 93005; 97162; 97530; 99219; 99285; A9540; C1758; J1650; J2270; J2405; Q9967

== ENCOUNTER 2022-08-21 08:38 | Emergency (ER) | payer MEDICARE, SELFPAY ==
--- NOTE | ~2022-08-21 | XR_ITS ---
EXAMINATION: XR WRIST, RIGHT CLINICAL INFORMATION: Fall. COMPARISON: May 30, 2022. TECHNIQUE: Four views of the right wrist. XR/XR wrist RT min 3V FINDINGS/IMPRESSION: Decreased bone mineral density limits sensitivity for subtle fracture. Examination demonstrates a healed impaction fracture of the distal radial metaphysis corresponding with that seen on May 30, 2022. No acute fracture is identified as such. There are degenerative changes of the first carpal-metacarpal joint, with mild associated subluxation. There are degenerative changes of the STT joint as well. No lytic or sclerotic bony lesion is seen.
--- NOTE | ~2022-08-21 | XR_ITS ---
EXAMINATION: XR LUMBOSACRAL SPINE CLINICAL INFORMATION: Fall. COMPARISON: May 30, 2022. TECHNIQUE: Three views of the lumbosacral spine. XR/XR lumbar spine 2-3V FINDINGS/IMPRESSION: Decreased bone mineral density significantly limits sensitivity for subtle fracture. Findings appear to demonstrate a mild to moderate compression deformity of L2, new compared with May 2022. Recommend clinical correlation. Otherwise, there has been no significant radiographic change. Bilateral transpedicular screws and rods are partially imaged, extending from above T10 to L2. Disc spacing devices are seen at least from T10 through L1. Moderate disc and facet degenerative changes are present at L2-S1. The paraspinal soft tissues appear unremarkable.
--- NOTE | ~2022-08-21 | XR_ITS ---
EXAMINATION: XR CHEST CLINICAL INFORMATION: Fall. COMPARISON: May 30, 2022. TECHNIQUE: Portable AP view of the chest was obtained. XR/XR chest 1V FINDINGS/IMPRESSION: Decreased bone mineral density limits sensitivity for subtle fracture. There is no gross acute radiographic finding. No infiltrate or pneumothorax is appreciated. There are old, healed bilateral rib fractures as well as blunting of the left costophrenic angle, similar compared with prior. Spinal rods appear similar. Amorphous calcification projects over the expected location of the insertion of the right supraspinatus tendon on the right humeral head, possibly representing calcific bursitis versus calcific tendinitis. There are postsurgical and/or posttraumatic changes involving the distal end of the right clavicle. The cardiac silhouette is poorly evaluated. The aorta is mildly atherosclerotic.
--- NOTE | ~2022-08-21 | XR_ITS ---
EXAMINATION: XR ELBOW, RIGHT CLINICAL INFORMATION: Fall. COMPARISON: None TECHNIQUE: Attempted AP, lateral, and oblique views of the right elbow. XR/XR elbow RT 2V FINDINGS/IMPRESSION: The study is somewhat limited, as no chest through AP or lateral view is submitted. There is no gross acute radiographic finding. Suspect decreased bone mineral density. No fracture or dislocation is appreciated. No lytic or sclerotic bony lesion is seen. No obvious fluid is appreciated within the elbow joint capsule.
--- NOTE | ~2022-08-21 | CT_ITS ---
EXAMINATION: CT HEAD WITHOUT CONTRAST CT CERVICAL SPINE WITHOUT CONTRAST CLINICAL INFORMATION: Fall with head strike. COMPARISON: CT scans dating between May 08, 2022 and January 18, 2022. MRI of the brain dated October 28, 2020. TECHNIQUE: CT of the head and cervical spine were performed without intravenous contrast. Multiplanar reformats were rendered and reviewed. This CT examination was performed using dose optimization techniques as appropriate, variously including the following: *Automated exposure control *Adjustment of mA and/or kV according to patient size (this includes techniques or standardized protocols for targeted exams where dose is matched to indication/reason for exam; i.e. extremities or head) *Use of iterative reconstruction technique DLP: 1246 mGy-cm. FINDINGS: CT head: No intracranial hemorrhage, large infarction, or mass lesion is seen. Age-appropriate cortical atrophy and chronic bilateral periventricular white matter ischemic changes. No extra-axial collection is appreciated. The ventricles are normal in size and configuration without evidence of hydrocephalus. The visualized paranasal sinuses and mastoid air cells are clear. Bilateral lens extractions. CT cervical spine: Anterior fixation hardware and disc spacing device at C6-C7. Ankylosis of C5-C6 vertebral bodies. Partially imaged upper thoracic spinal hardware. The cervical alignment appears unremarkable. The craniocervical junction appears unremarkable. The vertebral body heights are maintained. No cervical spine fracture is seen. Moderate disc degenerative change with significant bilateral neuroforaminal narrowing at C4-C5. The paraspinal soft tissues are within normal limits. The partially imaged lung apices are clear. CT/CT cervical spine wo IV con IMPRESSION: CT head: No acute intracranial finding. CT cervical spine: No cervical spine fracture or traumatic malalignment identified.
[2022-08-21 08:50] VITALS: BP 130/80; PULSE 103; O2SAT 97
[2022-08-21 09:02] VITALS: BP 170/78; PULSE 66; RESP 16; TEMP 36.6; O2SAT 98; BMI 21.6
--- NOTE | 2022-08-21 09:09 | ECG_ITS ---
Test Reason : fall Blood Pressure : / mmHG Vent. Rate : 080 BPM Atrial Rate : 080 BPM P-R Int : 154 ms QRS Dur : 078 ms QT Int : 378 ms P-R-T Axes : -02 014 033 degrees QTc Int : 435 ms Sinus rhythm with Premature supraventricular complexes and Premature ventricular complexes or Fusion complexes Otherwise normal ECG When compared with ECG of 30-MAY-2022 17:19, Fusion complexes are now Present Premature ventricular complexes are now Present Premature supraventricular complexes are now Present Referred By: Tiara Kim Electronically Signed By:Blanco Echavarria
--- NOTE | 2022-08-21 09:17 | ED_ITS ---
HPI - Fall General Chief Complaint: Fall Stated Complaint: FALL W/SKIN TEAR TO R ELBOW FROM SNF PER EMS Time Seen by Provider: 08/21/22 08:43 Source: patient, EMS and old records reviewed Mode of arrival: EMS Limitations: other (poor historian dementia) History of Present Illness HPI Narrative: 82 yo female with hx of dementia, R wrist fracture, GERD, HTN, back pain, frequent falls - unwitnessed today at SNF cannot recall events hx of same in past. Has skin tear to R arm. denies CP/SOB. states her back hurts. oriented to her baseline. complaint: fall Onset (ago): unknown Fall from: other (unwitnessed) Fall witnessed: no Place fall occurred: group home/SNF Loss of consciousness: unsure Prolonged down time: unclear Symptoms prior to fall: none Context: history of frequent falls Location of injury: other (skin tear R elbow) Severity: moderate Quality: dull and aching Associated symptoms (after fall): other (low back pain, skin tear) Related Data Home Medications Medication Instructions Recorded Confirmed ascorbic acid (vitamin C) 500 mg 500 mg PO DAILY 08/21/22 08/21/22 tablet (Vitamin C) cholecalciferol (vitamin D3) 25 25 mcg PO DAILY 08/21/22 08/21/22 mcg (1,000 unit) tablet docusate sodium 100 mg capsule 100 mg PO BID 08/21/22 08/21/22 duloxetine 40 mg capsule,delayed 40 mg PO DAILY 08/21/22 08/21/22 release gabapentin 100 mg capsule 100 mg PO TID 08/21/22 08/21/22 metoprolol succinate 25 mg 25 mg PO DAILY 08/21/22 08/21/22 tablet,extended release 24 hr mirabegron 50 mg tablet,extended 50 mg PO DAILY 08/21/22 08/21/22 release 24 hr (Myrbetriq) multivitamin 1 tab PO DAILY 08/21/22 08/21/22 omeprazole 20 mg capsule,delayed 20 mg PO DAILY 08/21/22 08/21/22 release oxycodone 5 mg tablet 5 mg PO BEDTIME 08/21/22 08/21/22 oxycodone 5 mg tablet 5 mg PO Q6H PRN Pain 08/21/22 08/21/22 quetiapine 50 mg tablet 50 mg PO BEDTIME 08/21/22 08/21/22 sennosides 8.6 mg tablet (senna) 17.2 mg PO DAILY PRN Constipation 08/21/22 08/21/22 Previous Rx's Medication Instructions Recorded cefuroxime axetil 250 mg tablet 250 mg PO BID 7 days #14 tabs 08/21/22 Allergies Allergy/AdvReac Type Severity Reaction Status Date / Time No Known Allergies Allergy Verified 05/08/22 14:44 Review of Systems Review of Systems: Constitutional : No Weight loss, No Fever, No Chills, ENT/Mouth : No Hearing loss, No Ear Pain, No Nasal Congestion, No Sinus Pain, No Hoarseness, No sore throat, No Rhinorrhea, No Swallowing Difficulty Cardiovascular : No Chest Pain, No SOB Respiratory : No Cough, No Dyspnea Gastrointestinal : No Nausea, No Vomiting, No Diarrhea, No abdominal Pain, No Hematochezia, No Melena Genitourinary : No Dysuria, No Urinary Frequency, No Hematuria, No Urinary Incontinence, Musculoskeletal : positive back pain Skin : No Skin Lesions, No rash, pos skin tear Neuro : No Weakness, No Numbness, No Paresthesias, no loss of bowel or bladder incontinence, no saddle anesthesia PMFSH Past Medical History Attestation statement: The following information was validated with the patient. Medical History Alzheimer disease Chronic back pain Dementia HTN (hypertension) Squamous cell skin cancer Surgical History H/O Spinal surgery H/O: hysterectomy Family History Family History Mother Breast cancer Social History Social History Housing: House Alcohol intake: never Patient Tobacco Use Status: Never used Tobacco Smoked in Last 30 Days: No Second Hand Smoke Exposure: No Use of substances other than those prescribed or required for medical reasons: No Advance Directives: Yes Advance Directives on File: Yes Advance Directives Date on File: 06/01/22 service: No Current occupational status: retired Physical Exam Vital Signs: Vital Signs: Last Vital Signs Temp 97.9 F 08/21/22 09:02 Pulse 73 08/21/22 13:42 Resp 12 08/21/22 13:42 BP 184/80 H 08/21/22 14:04 Pulse Ox 99 08/21/22 13:42 O2 Del Method 08/21/22 13:42 BMI result Body Mass Index 21.6 Appearance: Alert. Oriented X3. No acute distress. oriented to baseline Eyes: Pupils equal, round and reactive to light. ENT: Pharynx normal. atraumatic Neck: Normal inspection. Neck supple. CVS: Normal heart rate and rhythm. Pulses normal. Respiratory: No respiratory distress. Breath sounds normal. Abdomen: Soft and non-tender. Skin: Skin warm and dry. Normal skin color. Normal skin turgor. Extremities: No lower extremity edema. R elbow full ROM and wrist no deformity distal NV intact large 10cm skin tear to subq with thin fragile overlying avulsion bleeding controlled. Neuro: Oriented X 3. No motor deficit. No sensory deficit. Course Course Course Narrative: no WBC count, afebrile, at baseline - no signs of sepsis okay for oral antibiotics imaging negative other than L2 compression fracture she is distal NV intact frequent falls no CP/SOB to suggest ACS or PE cleared by PT/CM Medications Administered Discontinued Medications Generic Name Dose Route Start Last Admin Trade Name Freq PRN Reason Stop Dose Admin Cefuroxime Axetil 250 mg 08/21/22 12:56 08/21/22 13:06 Cefuroxime Axetil 250 Mg Tablet PO 08/21/22 12:57 250 mg ONCE ONE Administration Metoprolol Succinate 25 mg 08/21/22 10:44 08/21/22 10:56 Metoprolol Succinate Er 25 Mg Tab.Er.24h PO 08/21/22 10:45 25 mg ONCE ONE Administration Protocol Metoprolol Tartrate 25 mg 08/21/22 12:58 08/21/22 13:06 Metoprolol Tartrate 25 Mg Tablet PO 08/21/22 12:59 25 mg ONCE ONE Administration Protocol Oxycodone HCl 5 mg 08/21/22 12:09 08/21/22 12:39 Oxycodone Hcl Immed Release 5 Mg Tablet PO 08/21/22 12:10 5 mg ONCE ONE Administration Medical Decision Making Medical Decision Making MDM Narrative: 82 yo female with hx of dementia, R wrist fracture, GERD, HTN, back pain, frequent falls here with c/o unwitnessed fall does not know events at this time will need labs, CT head/cspine to rule out trauma, CXR for rib factures, RUE xrays and lumbar spine. UA for infection EKG and troponin. She denes CP/SOB VTE seems unlikely. Skin tear given fragility of her avulsion will need steri strips as sutures will tear through the frail skin. Differential Diagnosis Differential Diagnoses: The differential diagnosis associated with the presentation includes syncope, head injury, frequent falls, gait instability, UTI, trauma Admission/Observation Consideration of admission/observation: Escalation of care including admission/observation considered Consult Healthcare Provider Management of the patient was discussed with: Telephone Installer Lab Data MDM Lab Attestation statement: I reviewed the patient's lab results. 08/21/22 12:38 08/21/22 10:23 Labs: Lab Results 08/21/22 08/21/22 08/21/22 Range/Units 10:13 10:23 10:23 WBC (4.8-10.8) X10*3/uL RBC (4.20-5.50) X10*6/uL Hgb (12.0-16.0) g/dl Hct (37.0-47.0) % MCV (80.0-98.0) fL MCH (27.0-33.0) pg MCHC (31.0-35.0) g/dl RDW (11.0-16.0) % Plt Count (160-400) X10*3/uL MPV (9.4-12.3) fL Immature Gran % (Auto) (0.0-0.4) % Neut % (Auto) (45-73) % Lymph % (Auto) (20-40) % Hand % (Auto) (2-11) % Eos % (Auto) (0-4) % Baso % (Auto) (0-2) % Lymph # (Auto) (1.2-4.9) X10*3/uL Hand # (Auto) (0.1-1.2) X10*3/uL Eos # (Auto) (0.0-0.4) X10*3/uL Baso # (Auto) (0.0-0.2) X10*3/uL Abs Immat Gran (auto) (0.00-0.03) X10*3/uL Absolute Neuts (auto) (2.0-8.3) x10*3/uL Absolute Nucleated RBC (0.0-0.012) X10*3/uL Nucleated RBC % (auto) (0.0-0.2) /100WBC PT (10.0-13.1) SEC INR (0.9-1.1) Sodium 141 (135-145) mmol/L Potassium 4.2 (3.3-5.1) mmol/L Chloride 103 (96-108) mmol/L Carbon Dioxide 30 H (22-29) mmol/L Anion Gap 12 (12-20) BUN 13 (9-16) mg/dL Creatinine 0.61 (0.5-1.4) mg/dL Estim Creat Clear Calc 65.0 Estimated GFR > 60 Random Glucose 89 (60-115) mg/dL Calcium 9.3 (8.4-10.2) mg/dL Magnesium 2.0 (1.6-2.6) mg/dL Total Bilirubin 0.4 (0.0-1.0) mg/dL Direct Bilirubin < 0.2 (0.0-0.5) mg/dL AST 22 (5-31) U/L ALT 16 (0-31) U/L Alkaline Phosphatase 109 (39-117) U/L Total Creatine Kinase 128 (26-140) U/L Troponin I High Sens < 3.5 (<3.5-17.0) ng/L Total Protein 6.5 (6.5-8.0) g/dL Albumin 4.2 (3.5-5.0) g/dL Lipase 23 (8-78) U/L Urine Color Urine Appearance Urine pH (5.0-9.0) Ur Specific [place] (1.005-1.025) Urine Protein (Neg-Trace) mg/dL Urine Glucose (UA) (Negative) mg/dL Urine Ketones (Negative) mg/dL Urine Blood (Negative) Urine Nitrite (Negative) Ur Leukocyte Esterase (Negative) Urine RBC (0-2) /HPF Urine WBC (0-5) /HPF Ur Squamous Epith Cells (0-2) /HPF Urine Bacteria (None Seen) Hyaline Casts (0-2) /LPF COVID-19 (TALIB) Negative (Negative) COVID-19 Clin Com See Note 08/21/22 08/21/22 08/21/22 Range/Units 10:24 11:21 12:38 WBC 6.4 (4.8-10.8) X10*3/uL RBC 3.81 L (4.20-5.50) X10*6/uL Hgb 11.4 L (12.0-16.0) g/dl Hct 35.0 L (37.0-47.0) % MCV 91.9 (80.0-98.0) fL MCH 29.9 (27.0-33.0) pg MCHC 32.6 (31.0-35.0) g/dl RDW 13.9 (11.0-16.0) % Plt Count 208 (160-400) X10*3/uL MPV 8.6 L (9.4-12.3) fL Immature Gran % (Auto) 0.2 (0.0-0.4) % Neut % (Auto) 63.5 (45-73) % Lymph % (Auto) 24.8 (20-40) % Hand % (Auto) 9.8 (2-11) % Eos % (Auto) 1.2 (0-4) % Baso % (Auto) 0.5 (0-2) % Lymph # (Auto) 1.6 (1.2-4.9) X10*3/uL Hand # (Auto) 0.6 (0.1-1.2) X10*3/uL Eos # (Auto) 0.1 (0.0-0.4) X10*3/uL Baso # (Auto) 0.0 (0.0-0.2) X10*3/uL Abs Immat Gran (auto) 0.01 (0.00-0.03) X10*3/uL Absolute Neuts (auto) 4.1 (2.0-8.3) x10*3/uL Absolute Nucleated RBC 0.000 (0.0-0.012) X10*3/uL Nucleated RBC % (auto) 0.0 (0.0-0.2) /100WBC PT 10.9 (10.0-13.1) SEC INR 1.0 (0.9-1.1) Sodium (135-145) mmol/L Potassium (3.3-5.1) mmol/L Chloride (96-108) mmol/L Carbon Dioxide (22-29) mmol/L Anion Gap (12-20) BUN (9-16) mg/dL Creatinine (0.5-1.4) mg/dL Estim Creat Clear Calc Estimated GFR Random Glucose (60-115) mg/dL Calcium (8.4-10.2) mg/dL Magnesium (1.6-2.6) mg/dL Total Bilirubin (0.0-1.0) mg/dL Direct Bilirubin (0.0-0.5) mg/dL AST (5-31) U/L ALT (0-31) U/L Alkaline Phosphatase (39-117) U/L Total Creatine Kinase (26-140) U/L Troponin I High Sens (<3.5-17.0) ng/L Total Protein (6.5-8.0) g/dL Albumin (3.5-5.0) g/dL Lipase (8-78) U/L Urine Color Yellow Urine Appearance Clear Urine pH 8.0 (5.0-9.0) Ur Specific [place] 1.010 (1.005-1.025) Urine Protein Negative (Neg-Trace) mg/dL Urine Glucose (UA) Negative (Negative) mg/dL Urine Ketones Negative (Negative) mg/dL Urine Blood Trace H (Negative) Urine Nitrite Positive H (Negative) Ur Leukocyte Esterase Trace H (Negative) Urine RBC 3-5 H (0-2) /HPF Urine WBC 0-5 (0-5) /HPF Ur Squamous Epith Cells 0-2 (0-2) /HPF Urine Bacteria 4+ (None Seen) Hyaline Casts 0-2 (0-2) /LPF COVID-19 (TALIB) (Negative) COVID-19 Clin Com Independent Interpretation I performed an independent interpretation of an: EKG, Plain X-Ray and CT Scan Interpretation: Rate: 80 Rhythm: NSR [place]: normal Normal P waves. Normal GLORIA. Normal QRS complex. ST T wave : no acute ischemia qTC: normal prior studies:no acute ischemia The study has been interpreted contemporaneously by me. . Radiology Impression Discussion of test interpretation with radiology: I have reviewed the radiologist's reading. Independent Historian Clinical information obtained from an independent historian. History obtained from or confirmed by: EMS External Record Review External record reviewed: Inpatient record Prescription Management I considered prescription management with: Antibiotic Discharge Plan Discharge Clinical Impression: Acute UTI, At high risk for falls Closed compression fracture of L2 vertebra Qualifiers: Encounter type: initial encounter Qualified Code(s): S32.020A - Wedge compression fracture of second lumbar vertebra, initial encounter for closed fracture Skin tear of forearm without complication Qualifiers: Encounter type: initial encounter Laterality: right Qualified Code(s): S51.811A - Laceration without foreign body of right forearm, initial encounter Patient Disposition: Home, Self-Care Instructions: Urinary Tract Infection in Women (ED), Vertebral Compression Fracture (ED), Skin Tear (ED), Fall Prevention (ED) Additional Instructions: return to ED for any worsening symptoms or concerns take CEFTIN 250mg BID for 7 days skin tear - steri strips will fall off in 7 to 10 days should then receive good wound care this was very deep but top was thin and fragile could not suture. will need significant wound care. please sent to wound care center after steri strips fall off. return for fevers, redness, yellow drainage CT head/Cspine negative, xrays of right upper extermity are negative given metoprolol in ED x 2 do not get skin tear wet until strips are off, cover with magdalene wrap and dressings daily - change dressing daily new L2 compression fracture continue her oxycodone STAFF ASSIST WITH BED MOBILITY AND FUNCTIONAL MOBILITY AT THIS TIME. HOME PT SERVICES Prescriptions: New cefuroxime axetil 250 mg tablet 250 mg PO BID 7 Days Qty: 14 0RF No Action multivitamin Tablet 1 tab PO DAILY sennosides [senna] 8.6 mg Tablet 17.2 mg PO DAILY PRN (Reason: Constipation) ascorbic acid (vitamin C) [Vitamin C] 500 mg Tablet 500 mg PO DAILY docusate sodium 100 mg Capsule 100 mg PO BID omeprazole 20 mg capsule,delayed release(DR/EC) 20 mg PO DAILY gabapentin 100 mg capsule 100 mg PO TID metoprolol succinate 25 mg tablet extended release 24 hr 25 mg PO DAILY oxycodone 5 mg tablet 5 mg PO BEDTIME quetiapine 50 mg tablet 50 mg PO BEDTIME cholecalciferol (vitamin D3) 25 mcg (1,000 unit) Tablet 25 mcg PO DAILY Myrbetriq 50 mg tablet extended release 24 hr 50 mg PO DAILY duloxetine 40 mg capsule,delayed release(DR/EC) 40 mg PO DAILY oxycodone 5 mg tablet 5 mg PO Q6H PRN (Reason: Pain)
[2022-08-21 10:00] VITALS: BP 195/84; PULSE 66; RESP 18; O2SAT 99
--- NOTE | 2022-08-21 10:06 | MHC.EDTECH ---
EKG completed and signed by attending
[2022-08-21 10:47] LABS: Prothrombin Time 10.9 SEC (10.0-13.1)
--- NOTE | 2022-08-21 10:52 | PC.NURSE ---
Dr. Kim notified of SBP of 200, per SNF documentation patient takes 25mg metoprolol succinate QD, ordered and given to patient.
[2022-08-21 10:55] LABS: COVID-19 Test Negative (Negative); IDNOW Serial# 9DB6401D
[2022-08-21] MEDS: Metoprolol Succinate ER 25 MG TAB.ER.24H PO (10:56)
[2022-08-21 11:04] LABS: Alanine Aminotransferase 16 U/L (0-31); Albumin Level 4.2 g/dL (3.5-5.0); Alkaline Phosphatase 109 U/L (39-117); Anion Gap 12 (12-20); Aspartate Amino Transferase 22 U/L (5-31); Bilirubin Direct < 0.2 mg/dL (0.0-0.5); Bilirubin Total 0.4 mg/dL (0.0-1.0); Blood Urea Nitrogen 13 mg/dL (9-16); Calcium 9.3 mg/dL (8.4-10.2); Carbon Dioxide 30 mmol/L (22-29); Chloride 103 mmol/L (96-108); Estimated Glomerular Filt Rate > 60; Glucose Random 89 mg/dL (60-115); Lipase 23 U/L (8-78); Potassium 4.2 mmol/L (3.3-5.1); Sodium 141 mmol/L (135-145); Total Protein 6.5 g/dL (6.5-8.0)
[2022-08-21 11:10] LABS: Troponin-I High Sensitivity < 3.5 ng/L (<3.5-17.0)
--- NOTE | 2022-08-21 11:11 | PHA.MEDREC ---
Pharmacy Consult ? Medication Reconciliation Pharmacy has completed the medication reconciliation. List from [facility]. List looked like it was missing some medications, spoke to Mackenzie at the facility who confirmed I had the whole list.
[2022-08-21 11:27] LABS: Appearance Urine Clear; Color Urine Yellow; Glucose Urine UA Negative (Negative); Leukocyte Esterase Urine Trace (Negative); Nitrite Urine Positive (Negative); UMIC TRIGGER UACC YES; Urine Blood Trace (Negative); Urine Ketones Negative (Negative); Urine Protein Negative (Neg-Trace)
[2022-08-21 11:30] LABS: Bacteria Urine 4+ (None Seen); Hyaline Casts Urine 0-2 /LPF (0-2); Squamous Epithelial Cell Urine 0-2 /HPF (0-2); UACC Culture Trigger YES; WBC Urine 0-5 /HPF (0-5)
[2022-08-21 11:50] VITALS: BP 206/80; PULSE 74; RESP 17; O2SAT 100
[2022-08-21] MEDS: oxyCODONE HCl Immed Release 5 MG TABLET PO ×2 (12:39→16:25)
[2022-08-21 12:50] LABS: Basophils Percent Auto 0.5 % (0-2); Eosinophils Absolute Auto 0.1 X10*3/uL (0.0-0.4); Eosinophils Percent Auto 1.2 % (0-4); Hemoglobin 11.4 g/dl (12.0-16.0); Imm Gran Abs Auto 0.01 X10*3/uL (0.00-0.03); Imm Gran Pct Auto 0.2 % (0.0-0.4); Lymphocytes Absolute Auto 1.6 X10*3/uL (1.2-4.9); Lymphocytes Percent Auto 24.8 % (20-40); Mean Corpuscular HGB Conc 32.6 g/dl (31.0-35.0); Mean Corpuscular Hemoglobin 29.9 pg (27.0-33.0); Mean Corpuscular Volume 91.9 fL (80.0-98.0); Mean Platelet Volume 8.6 fL (9.4-12.3); Monocytes Absolute Auto 0.6 X10*3/uL (0.1-1.2); Monocytes Percent Auto 9.8 % (2-11); Neutrophils Absolute Auto 4.1 x10*3/uL (2.0-8.3); Neutrophils Percent Auto 63.5 % (45-73); Platelet Count 208 X10*3/uL (160-400); Red Blood Count 3.81 X10*6/uL (4.20-5.50); Red Cell Distribution Width 13.9 % (11.0-16.0); White Blood Count 6.4 X10*3/uL (4.8-10.8)
[2022-08-21] MEDS: Metoprolol Tartrate 25 MG TABLET PO (13:06)
[2022-08-21 13:34] LABS: MANUAL DIFF FLAG NO
[2022-08-21 13:42] VITALS: BP 203/90; PULSE 73; RESP 12; O2SAT 99
[2022-08-21 14:04] VITALS: BP 184/80
--- NOTE | 2022-08-21 14:16 | PC.NURSE ---
Patient reports pain relieved by Oxycodone. BP not improved with ER metoprolol, IR metoprolol ordered and given PO. Patient's friend Beverly present at bedside. PT bennie ordered and pending d/t multiple falls at assisted living. Patient reports that she walks with a walker at baseline.
--- NOTE | 2022-08-21 15:31 | MHC.EDTECH ---
pt has large skin tear on rt upper forearm. After cleaning with saline and rolling skin to meet boarders, 3 1/4 inch steri strips,xeroform dsg and several 4x4 bulky dressings were applied to the wound. A scant amount of bleeding was noted. Gina was used to wrap the wound . Patient rory well, Dr Kim updated
--- NOTE | 2022-08-21 18:21 | MHC.CM.ED ---
Pt from the [facility], assisted living and memory care. Hx Alzheimer's. Hx falls. Has UTI, skin tear and L2 compression Fx. PT recommending home PT. PT spoke with daughter/HCP#2 Martha Milton, who is agreeable to patient returning to the [facility] with home PT and VNA services for wound care. CM spoke with patient, who is a poor historian, but who is agreeable to returning to the [facility] with PT. States she feels safe there and likes living there. Daughter is very pleased with her care and the services at [facility]. [facility] has offered services and family accepts. CM spoke with nurse at the [facility], who states that patient can return and staff can help with bed mobility, as much as they are able. States they round hourly. States patient uses walker, but sometimes gets up at night. CM asked if other patients need mobility supports at their facility and if they can provide that. States they do, but sometimes patients get up in between rounds. CM stated that the patients daughter requested for the patient to return to the facility. Nurse states they can accept her back home, but would like her to arrive prior to 8pm. Ambulance booked for 1800. Dr. Kim aware of Home PT/wound care. [facility] for PT and drsg changes. Spoke with liason for [facility] and they will see patient tomorrow to begin care. F2F uploaded. Daughter will be at [facility] tomorrow. CM will follow for discharge services.
== END 2022-08-21 18:24 | disposition other institution (70) ==
PROVIDERS: Emergency Provider Emergency Medicine; PCP Physician Assistant Medical
DX: S32.020A Wedge compression fracture of second lumbar vertebra, initial encounter for closed fracture (principal); S51.811A Laceration without foreign body of right forearm, initial encounter; N39.0 Urinary tract infection, site not specified; M54.50 Low back pain, unspecified; M54.2 Cervicalgia; M25.532 Pain in left wrist; M25.531 Pain in right wrist; R07.89 Other chest pain; W01.10XA Fall on same level from slipping, tripping and stumbling with subsequent striking against unspecified object, initial encounter; Y93.9 Activity, unspecified; Y92.129 Unspecified place in nursing home as the place of occurrence of the external cause; Y99.9 Unspecified external cause status; Z91.81 History of falling; Z20.822 Contact with and (suspected) exposure to COVID-19; Z20.828 Contact with and (suspected) exposure to other viral communicable diseases; Z79.899 Other long term (current) drug therapy
CPT/HCPCS: 12001; 36415; 70450; 71045; 72100; 72125; 73070; 73110; 80048; 80076; 81001; 82550; 83690; 83735; 84484; 85025; 85610; 87086; 87088; 87186; 87635; 93005; 97162; 99284; 99285

== ENCOUNTER 2022-10-09 11:00 | Inpatient (IN) | payer MEDICARE, SELFPAY ==
--- NOTE | ~2022-10-09 | XR_ITS ---
EXAMINATION: XR TIBIA AND FIBULA, LEFT CLINICAL INFORMATION: Left lower leg pain COMPARISON: None available. TECHNIQUE: AP and lateral views of the left tibia and fibula were obtained. FINDINGS: The bones and soft tissues are normal. No fracture. No osseous lesions. XR/XR tibia fibula LT 2V IMPRESSION: Normal left tibia and fibula.
[2022-10-09 11:06] VITALS: BP 155/65; PULSE 78; RESP 19; TEMP 36.4; O2SAT 98; BMI 22.9
--- NOTE | 2022-10-09 11:24 | ED.GENADULT ---
HPI - General Adult General Chief complaint: Wound/Laceration Stated complaint: Needs IV antibiotic Time Seen by Provider: 10/09/22 11:24 Source: patient Mode of arrival: ambulatory Limitations: no limitations History of Present Illness HPI narrative: Patient is an 82 year old assigned female at with a history of dementia presenting to the emergency department today with a skin tear on her left lower leg. Patient states that she got the cut 1 week ago but is not sure how she got it. Patient stated her primary care prescribed PO Keflex which she has been taking since Saturday but due to lack of improvement they sent her to the ED. Patient denies any dizziness, lightheadedness, abdominal pain, nausea, vomiting, fever, chills, blurry vision, double vision, loss of vision, chest pain, difficulty breathing, shortness of breath, back pain, night sweats, pain with urination, increased urinary frequency, increased urinary urgency, blood in her urine or stool, syncope or a near syncopal episode, bowel incontinence, bladder incontinence, bowel retention, bladder retention, or any other complaints at this time. MD complaint: left lower leg skin tear Onset (ago): week(s) (1) Location: lower extremity (left) Radiation: non-radiation Relieving factors: none Exacerbating factors: none Associated symptoms: denies other symptoms Treatments prior to arrival: other (keflex) Related Data Home Medications Medication Instructions Recorded Confirmed ascorbic acid (vitamin C) 500 mg 500 mg PO DAILY 08/21/22 10/09/22 tablet (Vitamin C) cholecalciferol (vitamin D3) 25 25 mcg PO DAILY 08/21/22 10/09/22 mcg (1,000 unit) tablet docusate sodium 100 mg capsule 100 mg PO BID 08/21/22 10/09/22 gabapentin 100 mg capsule 100 mg PO TID 08/21/22 10/09/22 metoprolol succinate 25 mg 25 mg PO DAILY 08/21/22 10/09/22 tablet,extended release 24 hr mirabegron 50 mg tablet,extended 50 mg PO DAILY 08/21/22 10/09/22 release 24 hr (Myrbetriq) multivitamin 1 tab PO DAILY 08/21/22 10/09/22 omeprazole 20 mg capsule,delayed 20 mg PO DAILY 08/21/22 10/09/22 release oxycodone 5 mg tablet 5 mg PO Q6H PRN Pain 08/21/22 10/09/22 quetiapine 50 mg tablet 50 mg PO BEDTIME 08/21/22 10/09/22 sennosides 8.6 mg tablet (senna) 17.2 mg PO DAILY PRN Constipation 08/21/22 10/09/22 duloxetine 60 mg capsule,delayed 60 mg PO DAILY 10/09/22 10/09/22 release ferrous sulfate 325 mg (65 mg 325 mg PO DAILY 10/09/22 10/09/22 iron) tablet nitrofurantoin macrocrystal 50 mg 50 mg PO BEDTIME 10/09/22 10/09/22 capsule (Macrodantin) oxycodone 5 mg tablet 5 mg PO DAILY@1900 10/09/22 10/09/22 Previous Rx's Medication Instructions Recorded cefuroxime axetil 250 mg tablet 250 mg PO BID 7 days #14 tabs 08/21/22 Allergies Allergy/AdvReac Type Severity Reaction Status Date / Time No Known Allergies Allergy Verified 10/09/22 11:06 Review of Systems Review of Systems: Yes all other systems are reviewed and are negative Constitutional: Constitutional: Reports no additional constitutional complaints, Denies chills, Denies fever(s) and Denies night sweats Eyes: Eyes: Reports no additional eye complaints, Denies blurry vision, Denies change in vision, Denies diplopia, Denies eye discharge, Denies loss of vision and Denies eye pain ENT: Denies dizziness Cardiovascular: Cardiovascular: Reports no additional cardiovascular complaints, Denies chest pain, Denies lightheadedness, Denies Loss of Consciousness and Denies dyspnea Respiratory: Respiratory: Reports no additional respiratory complaints and Denies dyspnea Gastrointestinal: Gastrointestinal: Reports no additional gastrointestinal complaints, Denies abdominal pain, Denies melena, Denies hematochezia, Denies change in bowel habits and Denies change in stool character Genitourinary: Genitourinary: Denies hematuria, Denies urinary frequency, Denies dysuria, Denies urinary incontinence, Denies urinary hesitancy and Denies urinary urgency Musculoskeletal: Musculoskeletal: Reports no additional musculoskeletal complaints, Denies numbness and Denies tingling Integumentary/Breasts: Comments: non-healing left lower leg skin tear Neurologic: Denies dizziness, Denies loss of vision, Denies numbness and Denies tingling Psychiatric: Psychiatric: Reports no additional psychiatric complaints Endocrine: Endocrine: Reports no additional endocrine complaints Hematologic/Lymphatic: Hematologic/Lymphatic: Reports no additional hematologic/lymphatic complaints Allergic/Immunologic: Allergic/Immunologic: Reports no additional allergic/immunologic complaints PMFSH Past Medical History Attestation statement: The following information was validated with the patient. (patient's daughter validated all information) Source: old records reviewed, obtained from family (patient's daughter) and nursing notes reviewed Medical History Alzheimer disease Chronic back pain Dementia HTN (hypertension) Recurrent UTI Squamous cell skin cancer Urge incontinence Surgical History H/O Spinal surgery H/O: hysterectomy Family History Family History Mother Breast cancer Social History Social History Housing: House Alcohol intake: never Patient Tobacco Use Status: Never used Tobacco Smoked in Last 30 Days: No Second Hand Smoke Exposure: No Use of substances other than those prescribed or required for medical reasons: No Advance Directives: Yes Advance Directives on File: Yes Advance Directives Date on File: 06/01/22 service: No Current occupational status: retired Physical Exam ED Vital Signs: Vital Signs - 24 hr 10/09/22 11:06 10/09/22 12:52 Temperature 97.5 F 98.3 F Pulse Rate 78 72 Respiratory Rate 19 18 Blood Pressure 155/65 H 176/78 H Pulse Oximetry 98 98 Oxygen Delivery Method Room Air BMI result Body Mass Index 22.9 Const General: cooperative, no acute distress, alert and awake Nutritional Appearance: well nourished Orientation/consciousness: patient oriented x3 Limitations: no limitations HENMT Head: Yes normal to inspection and Yes atraumatic Ears: hearing grossly normal bilaterally and external ears normal General nose exam: Normal external nose present, no nasal discharge noted and no epistaxis Face and sinus: Yes normal facial exam, No abrasion and No laceration Mouth: Normal oral and palatal mucosa present, no drooling and no muffled voice Eyes General: appearance normal, both eyes and all related structures Periorbital: periorbital findings normal Eyelids: Yes eyelids normal Conjunctivae: conjunctivae normal Pupils: Equal, round and reactive pupils present EOM: EOMs intact bilaterally Neck Neck: Yes normal visual inspection, Yes full ROM and Yes no lymphadenopathy Chest Chest palpation & inspection: normal inspection of the chest Resp Effort & Inspection: normal respiratory effort and able to speak in complete sentences Auscultation: clear to auscultation bilaterally Cardio Rate: regular rate Rhythm: regular rhythm GI Inspection: Yes normal to inspection Skin Other: Wounds: wounds noted (posterior left lower leg necrotic wound approximately 4x2cm) Neuro General: patient oriented x3 and moves all extremities Cranial nerves: Yes Equal, round and reactive pupils present Cognition (Neuro): normal cognition Motor exam (neuro): 5/5 motor strength present throughout Sensory Exam: Normal double simultaneous stimulation for sensation Coordination: [id number] test normal Extrem General: Yes normal to inspection, Yes full ROM and Yes capillary refill normal Psych Appearance: grossly normal Mental Status: mental status grossly normal Affect: normal affect Attitude: cooperative Thought process: Normal thought process present Thought content: Normal thought content present Insight: Good insight present (Psych) Medications Administered Discontinued Medications Generic Name Dose Route Start Last Admin Trade Name Freq PRN Reason Stop Dose Admin Piperacillin Sod/Tazobactam 50 mls @ 100 mls/hr 10/09/22 11:43 10/09/22 13:22 Sod 3.375 gm/ Sodium Chloride IV 10/09/22 12:12 Infused ONCE ONE Infusion Medical Decision Making Medical Decision Making [facility] Narrative: Patient is an 82 year old assigned female at with a history of dementia presenting to the emergency department today with a left lower leg wound. Patient's physical exam was as shown in the physical exam portion of this chart. Patient's blood work showed an elevated ESR and CRP but was otherwise unremarkable. Patient's left tib fib x-ray showed no acute process. I spoke to the hospitalist team who agreed to admission. I explained my physical exam findings as well as all test results to the patient and the patient's daughter. I answered all questions asked by the patient and the patient's daughter. Patient's clinical presentation was not consistent with sepsis (@1307). Patient received IV Zosyn. Patient and the patient's daughter verbalized agreement and understanding with this treatment plan and admission. Differential Diagnosis Differential Diagnoses: The differential diagnosis associated with the presentation includes acute cellulitis on a chronic wound Consult Healthcare Provider Management of the patient was discussed with: Hospitalist (agreed to admission) Lab Data MDM Lab Attestation statement: I reviewed the patient's lab results. 10/09/22 11:58 10/09/22 11:58 Labs: Lab Results 10/09/22 10/09/22 10/09/22 Range/Units 06:23 11:58 11:58 WBC 5.3 (4.8-10.8) X10*3/uL RBC 3.48 L (4.20-5.50) X10*6/uL Hgb 10.6 L (12.0-16.0) g/dl Hct 32.8 L (37.0-47.0) % MCV 94.3 (80.0-98.0) fL MCH 30.5 (27.0-33.0) pg MCHC 32.3 (31.0-35.0) g/dl RDW 13.5 (11.0-16.0) % Plt Count 244 (160-400) X10*3/uL MPV 9.0 L (9.4-12.3) fL Immature Gran % (Auto) 0.0 (0.0-0.4) % Neut % (Auto) 61.8 (45-73) % Lymph % (Auto) 24.1 (20-40) % [place] % (Auto) 11.8 H (2-11) % Eos % (Auto) 1.7 (0-4) % Baso % (Auto) 0.6 (0-2) % Lymph # (Auto) 1.3 (1.2-4.9) X10*3/uL [place] # (Auto) 0.6 (0.1-1.2) X10*3/uL Eos # (Auto) 0.1 (0.0-0.4) X10*3/uL Baso # (Auto) 0.0 (0.0-0.2) X10*3/uL Abs Immat Gran (auto) 0.00 (0.00-0.03) X10*3/uL Absolute Neuts (auto) 3.3 (2.0-8.3) x10*3/uL Absolute Nucleated RBC 0.000 (0.0-0.012) X10*3/uL Nucleated RBC % (auto) 0.0 (0.0-0.2) /100WBC ESR 34 H (0-20) MM/HR Sodium (135-145) mmol/L Potassium (3.3-5.1) mmol/L Chloride (96-108) mmol/L Carbon Dioxide (22-29) mmol/L Anion Gap (12-20) BUN (9-16) mg/dL Creatinine (0.5-1.4) mg/dL Estim Creat Clear Calc Estimated GFR Random Glucose (60-115) mg/dL Lactic Acid (0.5-2.0) mmol/L Calcium (8.4-10.2) mg/dL Magnesium (1.6-2.6) mg/dL Total Bilirubin (0.0-1.0) mg/dL AST (5-31) U/L ALT (0-31) U/L Alkaline Phosphatase (39-117) U/L C-Reactive Protein (< or = 0.50) mg/dL Total Protein (6.5-8.0) g/dL Albumin (3.5-5.0) g/dL COVID-19 (TALIB) Negative (Negative) COVID-19 Clin Com See Note 10/09/22 10/09/22 Range/Units 11:58 11:58 WBC (4.8-10.8) X10*3/uL RBC (4.20-5.50) X10*6/uL Hgb (12.0-16.0) g/dl Hct (37.0-47.0) % MCV (80.0-98.0) fL MCH (27.0-33.0) pg MCHC (31.0-35.0) g/dl RDW (11.0-16.0) % Plt Count (160-400) X10*3/uL MPV (9.4-12.3) fL Immature Gran % (Auto) (0.0-0.4) % Neut % (Auto) (45-73) % Lymph % (Auto) (20-40) % [place] % (Auto) (2-11) % Eos % (Auto) (0-4) % Baso % (Auto) (0-2) % Lymph # (Auto) (1.2-4.9) X10*3/uL [place] # (Auto) (0.1-1.2) X10*3/uL Eos # (Auto) (0.0-0.4) X10*3/uL Baso # (Auto) (0.0-0.2) X10*3/uL Abs Immat Gran (auto) (0.00-0.03) X10*3/uL Absolute Neuts (auto) (2.0-8.3) x10*3/uL Absolute Nucleated RBC (0.0-0.012) X10*3/uL Nucleated RBC % (auto) (0.0-0.2) /100WBC ESR (0-20) MM/HR Sodium 138 (135-145) mmol/L Potassium 4.6 (3.3-5.1) mmol/L Chloride 102 (96-108) mmol/L Carbon Dioxide 28 (22-29) mmol/L Anion Gap 13 (12-20) BUN 17 H (9-16) mg/dL Creatinine 0.65 (0.5-1.4) mg/dL Estim Creat Clear Calc 61.0 Estimated GFR > 60 Random Glucose 92 (60-115) mg/dL Lactic Acid 0.6 (0.5-2.0) mmol/L Calcium 8.8 (8.4-10.2) mg/dL Magnesium 2.0 (1.6-2.6) mg/dL Total Bilirubin 0.4 (0.0-1.0) mg/dL AST 16 (5-31) U/L ALT 10 (0-31) U/L Alkaline Phosphatase 99 (39-117) U/L C-Reactive Protein 0.91 H (< or = 0.50) mg/dL Total Protein 6.2 L (6.5-8.0) g/dL Albumin 3.9 (3.5-5.0) g/dL COVID-19 (TALIB) (Negative) COVID-19 Clin Com Independent Interpretation I performed an independent interpretation of an: Plain X-Ray Interpretation: My interpretation is in agreement with the radiologist's impression of this imaging study. EXAMINATION: XR TIBIA AND FIBULA, LEFT CLINICAL INFORMATION: Left lower leg pain? COMPARISON: None available.? TECHNIQUE: AP and lateral views of the left tibia and fibula were obtained. FINDINGS: The bones and soft tissues are normal. No fracture. No osseous lesions. ? XR/XR tibia fibula LT 2V IMPRESSION: Normal left tibia and fibula. Dictated By: Uriel Gonzalez MD Signed By: Electronically signed by Uriel Gonzalez MD 10/09/22 [id number] Independent Historian Clinical information obtained from an independent historian. History obtained from or confirmed by: Other (daughter) Critical Care Time Critical Care Time Critical Care Time: Yes Total Critical Care Time: 30 Attestation: I spent 30 minutes of Critical Care Time with this patient. This does not include time spent on separately reported billable procedures. Discharge Plan Discharge Clinical Impression: Cellulitis of left lower extremity Patient Disposition: Admitted As Inpatient
--- NOTE | 2022-10-09 11:40 | PC.NURSE ---
xray performed at bedside
[2022-10-09 12:14] LABS: MANUAL DIFF FLAG NO
[2022-10-09 12:19] LABS: Basophils Percent Auto 0.6 % (0-2); Eosinophils Absolute Auto 0.1 X10*3/uL (0.0-0.4); Eosinophils Percent Auto 1.7 % (0-4); Hematocrit 32.8 % (37.0-47.0); Hemoglobin 10.6 g/dl (12.0-16.0); Lymphocytes Absolute Auto 1.3 X10*3/uL (1.2-4.9); Lymphocytes Percent Auto 24.1 % (20-40); Mean Corpuscular HGB Conc 32.3 g/dl (31.0-35.0); Mean Corpuscular Hemoglobin 30.5 pg (27.0-33.0); Mean Corpuscular Volume 94.3 fL (80.0-98.0); Monocytes Absolute Auto 0.6 X10*3/uL (0.1-1.2); Monocytes Percent Auto 11.8 % (2-11); Neutrophils Absolute Auto 3.3 x10*3/uL (2.0-8.3); Neutrophils Percent Auto 61.8 % (45-73); Platelet Count 244 X10*3/uL (160-400); Red Blood Count 3.48 X10*6/uL (4.20-5.50); Red Cell Distribution Width 13.5 % (11.0-16.0); White Blood Count 5.3 X10*3/uL (4.8-10.8)
[2022-10-09 12:28] LABS: Lactic Acid 0.6 mmol/L (0.5-2.0)
[2022-10-09 12:30] LABS: COVID-19 Test Negative (Negative); IDNOW Serial# 9DB6401D
--- NOTE | 2022-10-09 12:31 | PHA.MEDREC ---
Pharmacy Consult ? Medication Reconciliation Pharmacy has completed the medication reconciliation. Spoke with Belén at the [facility] to confirm medications. Zahira Murguia, IrisD
[2022-10-09 12:35] LABS: Alanine Aminotransferase 10 U/L (0-31); Albumin Level 3.9 g/dL (3.5-5.0); Alkaline Phosphatase 99 U/L (39-117); Anion Gap 13 (12-20); Aspartate Amino Transferase 16 U/L (5-31); Bilirubin Total 0.4 mg/dL (0.0-1.0); Blood Urea Nitrogen 17 mg/dL (9-16); C Reactive Protein 0.91 mg/dL (< or = 0.50); Calcium 8.8 mg/dL (8.4-10.2); Carbon Dioxide 28 mmol/L (22-29); Chloride 102 mmol/L (96-108); Estimated Glomerular Filt Rate > 60; Glucose Random 92 mg/dL (60-115); Potassium 4.6 mmol/L (3.3-5.1); Sodium 138 mmol/L (135-145); Total Protein 6.2 g/dL (6.5-8.0)
[2022-10-09 12:52] VITALS: BP 176/78; PULSE 72; RESP 18; TEMP 36.8; O2SAT 98
[2022-10-09] MEDS: Piperacillin Sodium/Tazobactam 3.375 GM in 0.9 % Sodium Chloride 50 ML IV (12:52)
--- NOTE | 2022-10-09 12:53 | PC.NURSE ---
patient a&ox3, vss, pt rle non draining wound open to air, skin around round red/warm to touch, pt complains of pain 4/10 on that site. iv inserted, labs drawn, blood cultures performed, pt medicated with iv abx, family at bedside, call griffith within reach, will continue to monitor.
[2022-10-09 13:06] LABS: Erythrocyte Sedimentation Rate 34 MM/HR (0-20)
--- NOTE | 2022-10-09 14:17 | PC.NURSE ---
pt moved from room 4 to 3 for hospital convience.
--- NOTE | 2022-10-09 14:22 | PM.IMHP ---
History of Present Illness Date of Service: 10/09/22 <LUIS A Evans - Last Filed: 10/09/22 14:41> Attending physician on admission: Chris Westfall <LUIS A Evans - Last Filed: 10/09/22 14:41> Chief Complaint: cellulitis LLE <LUIS A Evans - Last Filed: 10/09/22 14:41> 82-year-old female history of Alzheimer's dementia, chronic low back pain, squamous cell carcinoma, urge incontinence, recurrent UTI on prophylactic macrobid, GERD presented to the ED earlier today from [facility] at the advice of her PCP for evaluation of cellulitis of the left lower extremity. The patient sustained a skin tear the posterior left lower leg about 2 weeks ago and developed erythema, warmth surrounding the wound with minimal drainage. She was placed on cefuroxime by her PCP and has been taking the medication as prescribed for the last 4 days. However, the redness seems to be worsening with associated pain, warmth. No further drainage from the wound. On arrival to the ED, vital signs stable though is she is slightly hypertensive at 176/78. There is no leukocytosis. Renal function baseline, electrolyte levels normal. ESR 34, CRP 0.91. X-ray of the tibia/ fibula is without any acute abnormality. While in the ED, she was treated with 3.375 g Zosyn. She will be admitted for further management of acute cellulitis of the left lower extremity requiring IV antibiotics having failed outpatient oral antibiotic therapy. <LUIS A Evans - Last Filed: 10/09/22 14:41> Review of Systems Review of Systems: General: No fevers, malaise, unintentional weight loss HEENT: No blurred vision, diplopia. No sore throat, nasal congestion, rhinorrhea, sinus pain, ear pain Cardiovascular: No chest pain, palpitations, or leg edema Respiratory: No shortness of breath, wheezing, cough GI: No abdominal pain, nausea, vomiting, diarrhea, constipation, melena, hematochezia : No dysuria, hematuria, increased urinary frequency, decreased urinary output MSK: No myalgia, back pain. Pain LLE Neuro: No headaches, weakness, paresthesias Skin: No rashes. +skin tear with erythema/wamrth LLE <LUIS A Evans - Last Filed: 10/09/22 14:41> [facility]LY [facility] Medical History: Medical History Alzheimer disease Chronic back pain Dementia HTN (hypertension) Recurrent UTI Squamous cell skin cancer Urge incontinence <LUIS A Evans - Last Filed: 10/09/22 14:41> Family History: Family History Mother Breast cancer <LUIS A Evans - Last Filed: 10/09/22 14:41> Surgical History: Surgical History H/O Spinal surgery H/O: hysterectomy <LUIS A Evans - Last Filed: 10/09/22 14:41> Social History: Social History Household Members: Family Housing: House Do you presently have visiting nurse or other home services: No Alcohol intake: never Patient Tobacco Use Status: Never used Tobacco Smoked in Last 30 Days: No Second Hand Smoke Exposure: No Use of substances other than those prescribed or required for medical reasons: No Currently Displaying Signs/Symptoms of Drug Intoxication Withdrawal: No Have you been hit, kicked, punched, or otherwise hurt by someone within the past year? If so, by whom?: No Do you feel safe in your current relationship?: No Current Relationship Is there a partner from a previous relationship who is making you feel unsafe now?: No Are you made to feel afraid or neglected: No Advance Directives: Yes Advance Directives on File: Yes Advance Directives Date on File: 06/01/22 Do you have thoughts of harming others: None Do you have a plan to hurt others: No Plan Recently lost weight without trying: No How much weight loss: Not applicable Eating poorly because of decreased appetite: No Nutrition screen score: 0 Nutrition Risks: No Nutritional Risk Patient : No : No Poor oral hygiene: No service: No Current occupational status: retired <LUIS A Evans - Last Filed: 10/09/22 14:41> Meds Allergies/Adverse reactions: Allergies Allergy/AdvReac Type Severity Reaction Status Date / Time No Known Allergies Allergy Verified 10/09/22 11:06 <LUIS A Evans - Last Filed: 10/09/22 14:41> Active Medications: Current Medications Pharmacy Consult (Consult Rx Perform Med Rec) 1 each MISCELLANE ONCE PRN PRN Reason: Consult order <LUIS A Evans - Last Filed: 10/09/22 14:41> Home medications: Home Medications Medication Instructions Recorded Confirmed Last Taken Type ascorbic acid (vitamin C) 500 mg 500 mg PO DAILY 08/21/22 10/09/22 Unknown History tablet (Vitamin C) cholecalciferol (vitamin D3) 25 25 mcg PO DAILY 08/21/22 10/09/22 Unknown History mcg (1,000 unit) tablet docusate sodium 100 mg capsule 100 mg PO BID 08/21/22 10/09/22 Unknown History gabapentin 100 mg capsule 100 mg PO TID 08/21/22 10/09/22 Unknown History metoprolol succinate 25 mg 25 mg PO DAILY 08/21/22 10/09/22 Unknown History tablet,extended release 24 hr mirabegron 50 mg tablet,extended 50 mg PO DAILY 08/21/22 10/09/22 Unknown History release 24 hr (Myrbetriq) multivitamin 1 tab PO DAILY 08/21/22 10/09/22 Unknown History omeprazole 20 mg capsule,delayed 20 mg PO DAILY 08/21/22 10/09/22 Unknown History release oxycodone 5 mg tablet 5 mg PO Q6H PRN Pain 08/21/22 10/09/22 Unknown History quetiapine 50 mg tablet 50 mg PO BEDTIME 08/21/22 10/09/22 Unknown History sennosides 8.6 mg tablet (senna) 17.2 mg PO DAILY PRN Constipation 08/21/22 10/09/22 Unknown History duloxetine 60 mg capsule,delayed 60 mg PO DAILY 10/09/22 10/09/22 Unknown History release ferrous sulfate 325 mg (65 mg 325 mg PO DAILY 10/09/22 10/09/22 Unknown History iron) tablet nitrofurantoin macrocrystal 50 mg 50 mg PO BEDTIME 10/09/22 10/09/22 Unknown History capsule (Macrodantin) oxycodone 5 mg tablet 5 mg PO DAILY@1900 10/09/22 10/09/22 Unknown History <LUIS A Evans - Last Filed: 10/09/22 14:41> Physical Exam Vital Signs and Narrative: Vital Signs: Last Vital Signs Temp 98.3 F 10/09/22 12:52 Pulse 72 10/09/22 12:52 Resp 18 10/09/22 12:52 BP 176/78 H 10/09/22 12:52 Pulse Ox 98 10/09/22 12:52 O2 Del Method Room Air 10/09/22 12:52 BMI result Body Mass Index 22.9 <LUIS A Evans - Last Filed: 10/09/22 14:41> Constitutional - Awake and Alert, No apparent distress Eyes - PERRLA, EOMI Cardiovascular - S1S2, RRR, No edema Respiratory - Normal lung expansion, Normal respiratory effort, No respiratory distress, CTA bilaterally Gastrointestinal - NT / ND; +BS; No rebound or guarding Extremities - no calf tenderness bilaterally, no swelling. about 3.5cm x 2cm shallow ulceration posterior lower left leg with surrounding erythema encompassing the entire posterior and distal 2/3 lateral aspect of the left lower leg. No fluctuance Skin - Warm/Dry Neurological - Alert & oriented x4, CN II-XII in tact, 5/5 strength BUE and BLE Psychological - Appropriate affect <LUIS A Evans - Last Filed: 10/09/22 14:41> Results Labs CBC and Chem 7: 10/09/22 11:58 10/09/22 11:58 <LUIS A Evans - Last Filed: 10/09/22 14:41> Labs: Laboratory Results - last 24 hr 10/09/22 10/09/22 10/09/22 06:23 11:58 11:58 MCV 94.3 MCH 30.5 MCHC 32.3 RDW 13.5 Plt Count 244 MPV 9.0 L Immature Gran % (Auto) 0.0 Neut % (Auto) 61.8 Lymph % (Auto) 24.1 [place] % (Auto) 11.8 H Eos % (Auto) 1.7 Baso % (Auto) 0.6 Lymph # (Auto) 1.3 [place] # (Auto) 0.6 Eos # (Auto) 0.1 Baso # (Auto) 0.0 Abs Immat Gran (auto) 0.00 Absolute Neuts (auto) 3.3 Absolute Nucleated RBC 0.000 Nucleated RBC % (auto) 0.0 ESR 34 H Anion Gap Estim Creat Clear Calc Estimated GFR Random Glucose Lactic Acid Calcium Magnesium Total Bilirubin AST ALT Alkaline Phosphatase C-Reactive Protein Total Protein Albumin COVID-19 (TALIB) Negative COVID-19 Clin Com See Note 10/09/22 10/09/22 11:58 11:58 MCV MCH MCHC RDW Plt Count MPV Immature Gran % (Auto) Neut % (Auto) Lymph % (Auto) [place] % (Auto) Eos % (Auto) Baso % (Auto) Lymph # (Auto) [place] # (Auto) Eos # (Auto) Baso # (Auto) Abs Immat Gran (auto) Absolute Neuts (auto) Absolute Nucleated RBC Nucleated RBC % (auto) ESR Anion Gap 13 Estim Creat Clear Calc 61.0 Estimated GFR > 60 Random Glucose 92 Lactic Acid 0.6 Calcium 8.8 Magnesium 2.0 Total Bilirubin 0.4 AST 16 ALT 10 Alkaline Phosphatase 99 C-Reactive Protein 0.91 H Total Protein 6.2 L Albumin 3.9 COVID-19 (TALIB) COVID-19 Clin Com <LUIS A Evans - Last Filed: 10/09/22 14:41> Imaging Radiologist's Impressions: Impressions Tibia/Fibula X-Ray 10/09/22 12:34 IMPRESSION: Normal left tibia and fibula. <LUIS A Evans - Last Filed: 10/09/22 14:41> Assessment and Plan (1) Cellulitis of left lower extremity: Status: Acute <LUIS A Evans - Last Filed: 10/09/22 14:41> 82-year-old female history of Alzheimer's dementia, chronic low back pain, squamous cell carcinoma, urge incontinence, recurrent UTI on prophylactic macrobid, GERD admitted for cellulitis LLE having failed outpt oral abx therapy #Cellulitis LLE with infected shallow ulceration posterior left leg from skin tear -ESR 34, CRP 0.9. XRAY tib/fib unremarkable -IV cefazolin 2mg q8h (initiated 10/09) -Wound culture obtained -no leukocytosis of SIRS criteria. No sepsis -Consider wound care consult if no improvement -Follow cultures #Chronic low back pain -continue oxycodone, duloxetine, gabapentin #Urge incontincen with recurrent UTI -continue macrobid and myrbetriq #Alzheimers dementia -mentation baseline- able to answer questions appropriately #HTN -continue metoprolol #Chronic normocytic anemia -likely related to chronic disease -continue ferrous sulfate -H/H baseline DVT prophylaxis- lovenox DNR/DNI per [facility] form patient requires inpatient stay of at least 2 midnights for management of acute cellulitis of the left lower extremity requiring IV antibiotics having failed outpatient oral antibiotic <LUIS A Evans - Last Filed: 10/09/22 14:41> 82-year-old female history of Alzheimer's dementia, chronic low back pain, squamous cell carcinoma, urge incontinence, recurrent UTI on prophylactic macrobid, GERD admitted for cellulitis LLE having failed outpt oral abx therapy #Cellulitis LLE with infected shallow ulceration posterior left leg from skin tear -ESR 34, CRP 0.9. XRAY tib/fib unremarkable -IV cefazolin 2mg q8h (initiated 10/09) -Wound culture obtained -no leukocytosis of SIRS criteria. No sepsis -Consider wound care consult if no improvement -Follow cultures #Chronic low back pain -continue oxycodone, duloxetine, gabapentin #Urge incontincen with recurrent UTI -continue macrobid and myrbetriq #Alzheimers dementia -mentation baseline- able to answer questions appropriately #HTN -continue metoprolol #Chronic normocytic anemia -likely related to chronic disease -continue ferrous sulfate -H/H baseline DVT prophylaxis- lovenox DNR/DNI per [facility]OL[facility] form patient requires inpatient stay of at least 2 midnights for management of acute cellulitis of the left lower extremity requiring IV antibiotics having failed outpatient oral antibiotic . Addendum: This patient is seen and examined with APC. Lab imaging reviewed. Physical exam and assessment and plan coordinated in APCs note, Agree with the plan in addition: <Chris Westfall MD - Last Filed: 10/10/22 08:04> Time Spent With Patient Time: Total time managing care of this patient today ____ minutes. <LUIS A Evans - Last Filed: 10/09/22 14:41> Quality Stroke Does the patient have a stroke diagnosis?: No <LUIS A Evans - Last Filed: 10/09/22 14:41> VTE Prior VTE?: No <LUIS A Evans - Last Filed: 10/09/22 14:41> VTE Risk Level:: Medical - moderate - high <LUIS A Evans - Last Filed: 10/09/22 14:41> VTE Device Contraindication: Treatment Not Indicated <LUIS A Evans - Last Filed: 10/09/22 14:41> VTE Drug Contraindication: N/A - Med Ordered <LUIS A Evans - Last Filed: 10/09/22 14:41>
--- NOTE | 2022-10-09 15:14 | PC.NURSE ---
called S3 who requested that this nurse tiger text RN to give report and gave the name of the nurse who will take report, this nurse tiger texted.
[2022-10-09 15:30] VITALS: BP 177/75; PULSE 73; RESP 12; TEMP 36.7; O2SAT 97
--- NOTE | 2022-10-09 15:34 | MHC.EDTECH ---
i pct took pts bp 3 times aon both arms and all 3 times bp is high
[2022-10-09] MEDS: Gabapentin 100 MG CAPSULE PO ×2 (15:54→20:20)
[2022-10-09] MEDS: Enoxaparin Sodium 40 MG/0.4 ML SYRINGE SUBCUT (15:55)
[2022-10-09] MEDS: ceFAZolin Sodium/Dextrose,Iso 2 GM/50 ML PIGGYBACK IV ×2 (15:58→22:09)
[2022-10-09] MEDS: 0.9 % Sodium Chloride Flush 3 ML SYRINGE IVFLUSH ×2 (16:50→20:20)
--- NOTE | 2022-10-09 17:04 | PC.NURSE ---
pt reports worry about falling out of bed as they have a history of doing so. call griffith within reach, bed in lowest position, side rails up. pt reminded to call RN if they need to use the bathroom or get up.
--- NOTE | 2022-10-09 17:17 | PC.NURSE ---
report given to RN on S3
[2022-10-09] MEDS: Acetaminophen 325 MG TABLET 650 MG PO (17:47)
[2022-10-09 17:51] VITALS: BP 170/76; PULSE 65; RESP 18; TEMP 36.8; O2SAT 99
[2022-10-09] MEDS: oxyCODONE HCl Immed Release 5 MG TABLET PO (18:14)
[2022-10-09 19:37] VITALS: BP 143/81; PULSE 64; RESP 17; TEMP 36.6; O2SAT 96
[2022-10-09] MEDS: QUEtiapine Fumarate 50 MG TABLET PO (20:19)
[2022-10-09] MEDS: Docusate Sodium 100 MG CAPSULE PO (20:19)
[2022-10-09] MEDS: nitrofurantoin macrocrystaL 50 MG CAPSULE PO (20:20)
[2022-10-10 04:00] VITALS: BP 174/81; PULSE 64; RESP 17; TEMP 36.3; O2SAT 95
[2022-10-10] MEDS: oxyCODONE HCl Immed Release 5 MG TABLET PO ×2 (04:15→18:20)
[2022-10-10 06:04] LABS: MANUAL DIFF FLAG NO
[2022-10-10 06:20] LABS: Basophils Percent Auto 0.9 % (0-2); Eosinophils Absolute Auto 0.1 X10*3/uL (0.0-0.4); Eosinophils Percent Auto 2.9 % (0-4); Hematocrit 29.3 % (37.0-47.0); Hemoglobin 9.5 g/dl (12.0-16.0); Imm Gran Abs Auto 0.01 X10*3/uL (0.00-0.03); Imm Gran Pct Auto 0.3 % (0.0-0.4); Lymphocytes Absolute Auto 1.2 X10*3/uL (1.2-4.9); Lymphocytes Percent Auto 34.1 % (20-40); Mean Corpuscular HGB Conc 32.4 g/dl (31.0-35.0); Mean Corpuscular Hemoglobin 30.7 pg (27.0-33.0); Mean Corpuscular Volume 94.8 fL (80.0-98.0); Mean Platelet Volume 9.3 fL (9.4-12.3); Monocytes Absolute Auto 0.5 X10*3/uL (0.1-1.2); Monocytes Percent Auto 13.5 % (2-11); Neutrophils Absolute Auto 1.7 x10*3/uL (2.0-8.3); Neutrophils Percent Auto 48.3 % (45-73); Platelet Count 223 X10*3/uL (160-400); Red Blood Count 3.09 X10*6/uL (4.20-5.50); Red Cell Distribution Width 13.4 % (11.0-16.0); White Blood Count 3.5 X10*3/uL (4.8-10.8)
[2022-10-10 06:37] LABS: Anion Gap 10 (12-20); Blood Urea Nitrogen 16 mg/dL (9-16); Calcium 8.5 mg/dL (8.4-10.2); Carbon Dioxide 28 mmol/L (22-29); Chloride 105 mmol/L (96-108); Estimated Glomerular Filt Rate > 60; Glucose Random 92 mg/dL (60-115); Potassium 4.2 mmol/L (3.3-5.1); Sodium 139 mmol/L (135-145)
[2022-10-10] MEDS: ceFAZolin Sodium/Dextrose,Iso 2 GM/50 ML PIGGYBACK IV ×3 (06:40→22:19)
[2022-10-10 06:56] VITALS: BP 152/70; PULSE 65; RESP 18; TEMP 36.6; O2SAT 96
[2022-10-10] MEDS: Mirabegron 50 MG TAB.ER.24H PO (08:21)
[2022-10-10] MEDS: Ascorbic Acid 500 MG TABLET PO (08:21)
[2022-10-10] MEDS: Omeprazole 20 MG CAPSULE.DR PO (08:22)
[2022-10-10] MEDS: Cholecalciferol (Vitamin D3) 25 MCG TABLET PO (08:22)
[2022-10-10] MEDS: Ferrous Sulfate 324 MG TABLET.DR PO (08:22)
[2022-10-10] MEDS: Multivitamin TABLET 1 TAB PO (08:22)
[2022-10-10] MEDS: Docusate Sodium 100 MG CAPSULE PO ×2 (08:22→22:18)
[2022-10-10] MEDS: DULoxetine HCl 60 MG CAPSULE.DR PO (08:22)
[2022-10-10] MEDS: Gabapentin 100 MG CAPSULE PO ×3 (08:22→22:18)
[2022-10-10] MEDS: 0.9 % Sodium Chloride Flush 3 ML SYRINGE IVFLUSH ×3 (08:22→22:19)
[2022-10-10] MEDS: Metoprolol Succinate ER 25 MG TAB.ER.24H PO (08:22)
--- NOTE | 2022-10-10 10:56 | HO.PM.IMPN ---
Subjective Subjective Date of Service: 10/10/22 Interval History: left leg cellulitis Review of Systems Erythema and pain area seems similar to yesterday, may be says slightly improving No fever Physical Exam Vital Signs: Vital Signs: Last Vital Signs Temp 98 F 10/10/22 06:56 Pulse 65 10/10/22 06:56 Resp 18 10/10/22 06:56 BP 152/70 H 10/10/22 06:56 Pulse Ox 96 10/10/22 06:56 O2 Del Method Room Air 10/10/22 06:56 BMI result Body Mass Index 22.9 Appearance: Alert.? Oriented -seems baseline ,daughter at bedside. cvs: rrr, [id number] . res: clear to auscultation ,no rhonchii or wheezing abd: no rebound or guarding ,nt, bs present. ext pulses present , no cyanosis , left leg-shallow ulceration . no discharge , has erythema of foot and leg area similar to yesterday , no fluctuation. neuro: axo3 , nonfocal. Objective Data Active Medications Acetaminophen (Acetaminophen 325 Mg Tablet) 650 mg PO Q6H PRN PRN Reason: Pain, Mild (Pain Scale 1-3) Last Admin: 10/09/22 17:47 Dose: 650 mg Documented By: KENZIE Ascorbic Acid (Ascorbic Acid 500 Mg Tablet) 500 mg PO DAILY [facility] Last Admin: 10/10/22 08:21 Dose: 500 mg Documented By: LOVE Docusate Sodium (Docusate Sodium 100 Mg Capsule) 100 mg PO BID [facility] Last Admin: 10/10/22 08:22 Dose: 100 mg Documented By: LOVE Duloxetine HCl (Duloxetine Hcl 60 Mg Capsule.) 60 mg PO DAILY [facility] Last Admin: 10/10/22 08:22 Dose: 60 mg Documented By: LOVE Enoxaparin Sodium (Enoxaparin Sodium 40 Mg/0.4 Ml Syringe) 40 mg SUBCUT Q24H [facility] Last Admin: 10/09/22 15:55 Dose: 40 mg Documented By: SUMMER Ferrous Sulfate (Ferrous Sulfate 324 Mg Tablet.) 324 mg PO DAILY [facility] Last Admin: 10/10/22 08:22 Dose: 324 mg Documented By: LOVE Gabapentin (Gabapentin 100 Mg Capsule) 100 mg PO TID [facility] Last Admin: 10/10/22 08:22 Dose: 100 mg Documented By: LOVE Cefazolin Sodium/Dextrose (Ancef) 2 gm in 50 mls @ 100 mls/hr IV Q8H [facility] Last Infusion: 10/10/22 07:32 Dose: 100 mls/hr Documented By: LOVE Metoprolol Succinate (Metoprolol Succinate Er 25 Mg Tab.Er.24h) 25 mg PO DAILY [facility]; Protocol Last Admin: 10/10/22 08:22 Dose: 25 mg Documented By: LOVE Mirabegron (Mirabegron 50 Mg Tab.Er.24h) 50 mg PO DAILY [facility] Last Admin: 10/10/22 08:21 Dose: 50 mg Documented By: LOVE Multivitamins/Vitamin C (Multivitamin Tablet) 1 tab PO DAILY [facility] Last Admin: 10/10/22 08:22 Dose: 1 tab Documented By: LOVE Nitrofurantoin Macrocrystals (Nitrofurantoin Macrocrystal 50 Mg Capsule) 50 mg PO BEDTIME [facility] Last Admin: 10/09/22 20:20 Dose: 50 mg Documented By: RAUL Omeprazole (Omeprazole 20 Mg Capsule.Dr) 20 mg PO DAILY [facility] Last Admin: 10/10/22 08:22 Dose: 20 mg Documented By: LOVE Ondansetron HCl (Ondansetron Hcl 4 Mg/2 Ml Vial) 4 mg IVPUSH Q8H PRN PRN Reason: Nausea and Vomiting Oxycodone HCl (Oxycodone Hcl Immed Release 5 Mg Tablet) 5 mg PO DAILY@1900 [facility] Last Admin: 10/09/22 18:14 Dose: 5 mg Documented By: KENZIE Oxycodone HCl (Oxycodone Hcl Immed Release 5 Mg Tablet) 5 mg PO Q6H PRN PRN Reason: Pain, Severe (Pain Scale 7-10) Last Admin: 10/10/22 04:15 Dose: 5 mg Documented By: RAUL Pharmacy Consult (Consult Rx Perform Med Rec) 1 each MISCELLANE ONCE PRN PRN Reason: Consult order Quetiapine Fumarate (Quetiapine Fumarate 50 Mg Tablet) 50 mg PO BEDTIME [facility] Last Admin: 10/09/22 20:19 Dose: 50 mg Documented By: RAUL Senna (Sennosides 8.6 Mg Tablet) 17.2 mg PO DAILY PRN PRN Reason: Constipation Sodium Chloride (0.9 % Sodium Chloride Flush 3 Ml Syringe) 3 ml IVFLUSH QSHIFT [facility] Last Admin: 10/10/22 08:22 Dose: 3 ml Documented By: LOVE Vitamin D (Cholecalciferol (Vitamin D3) 25 Mcg Tablet) 25 mcg PO DAILY [facility] Last Admin: 10/10/22 08:22 Dose: 25 mcg Documented By: LOVE Labs 10/10/22 05:06 10/10/22 05:06 Labs: Laboratory Results - last 24 hr 10/09/22 10/09/22 10/09/22 06:23 11:58 11:58 MCV 94.3 MCH 30.5 MCHC 32.3 RDW 13.5 Plt Count 244 MPV 9.0 L Immature Gran % (Auto) 0.0 Neut % (Auto) 61.8 Lymph % (Auto) 24.1 [place] % (Auto) 11.8 H Eos % (Auto) 1.7 Baso % (Auto) 0.6 Lymph # (Auto) 1.3 [place] # (Auto) 0.6 Eos # (Auto) 0.1 Baso # (Auto) 0.0 Abs Immat Gran (auto) 0.00 Absolute Neuts (auto) 3.3 Absolute Nucleated RBC 0.000 Nucleated RBC % (auto) 0.0 ESR 34 H Anion Gap Estim Creat Clear Calc Estimated GFR Random Glucose Lactic Acid Calcium Magnesium Total Bilirubin AST ALT Alkaline Phosphatase C-Reactive Protein Total Protein Albumin COVID-19 (TALIB) Negative COVID-19 Clin Com See Note 10/09/22 10/09/22 10/10/22 11:58 11:58 05:06 MCV 94.8 MCH 30.7 MCHC 32.4 RDW 13.4 Plt Count 223 MPV 9.3 L Immature Gran % (Auto) 0.3 Neut % (Auto) 48.3 Lymph % (Auto) 34.1 [place] % (Auto) 13.5 H Eos % (Auto) 2.9 Baso % (Auto) 0.9 Lymph # (Auto) 1.2 [place] # (Auto) 0.5 Eos # (Auto) 0.1 Baso # (Auto) 0.0 Abs Immat Gran (auto) 0.01 Absolute Neuts (auto) 1.7 L Absolute Nucleated RBC 0.000 Nucleated RBC % (auto) 0.0 ESR Anion Gap 13 Estim Creat Clear Calc 61.0 Estimated GFR > 60 Random Glucose 92 Lactic Acid 0.6 Calcium 8.8 Magnesium 2.0 Total Bilirubin 0.4 AST 16 ALT 10 Alkaline Phosphatase 99 C-Reactive Protein 0.91 H Total Protein 6.2 L Albumin 3.9 COVID-19 (TALIB) COVID-19 Clin Com 10/10/22 05:06 MCV MCH MCHC RDW Plt Count MPV Immature Gran % (Auto) Neut % (Auto) Lymph % (Auto) [place] % (Auto) Eos % (Auto) Baso % (Auto) Lymph # (Auto) [place] # (Auto) Eos # (Auto) Baso # (Auto) Abs Immat Gran (auto) Absolute Neuts (auto) Absolute Nucleated RBC Nucleated RBC % (auto) ESR Anion Gap 10 L Estim Creat Clear Calc 62.0 Estimated GFR > 60 Random Glucose 92 Lactic Acid Calcium 8.5 Magnesium Total Bilirubin AST ALT Alkaline Phosphatase C-Reactive Protein Total Protein Albumin COVID-19 (TALIB) COVID-19 Clin Com Microbiology Microbiology Results: Microbiology 10/09/22 15:11 Gram Stain - Final Leg Left Routine Culture - Preliminary Staphylococcus species Assessment and Plan (1) Cellulitis of left lower extremity: Status: Acute Plan 82-year-old female history of Alzheimer's dementia, chronic low back pain, squamous cell carcinoma, urge incontinence, recurrent UTI on prophylactic macrobid, GERD admitted for cellulitis LLE having failed outpt oral abx therapy Cellulitis LLE with infected shallow ulceration posterior left leg from skin tear failed outpatient antibiotics minimum improvement so far -ESR 34, CRP 0.9. XRAY tib/fib unremarkable no leukocytosis of SIRS criteria.? No sepsis. blood culture pending,Wound culture-staph species -IV cefazolin 2mg q8h (initiated 10/09),Consider wound care consult if no improvement. Chronic low back pain-continue oxycodone, duloxetine, gabapentin. Urge incontincen with recurrent UTI-continue macrobid and myrbetriq. Alzheimers dementia-mentation baseline- able to answer questions appropriately HTN-continue metoprolol. Chronic normocytic anemia-likely related to chronic disease -continue ferrous sulfate -H/H baseline DVT prophylaxis- lovenox DNR/DNI per [facility] form ?patient requires inpatient stay :acute cellulitis failed outpatient antibiotics of the left lower extremity requiring IV antibiotics so far mimium effect ,wound cultures and iD eval pending . Time Spent With Patient Time: Total time managing care of this patient today ____ minutes. Quality Stroke Does the patient have a stroke diagnosis?: No VTE Prior VTE?: No VTE Risk Level:: Medical - moderate - high VTE Device Contraindication: Treatment Not Indicated VTE Drug Contraindication: N/A - Med Ordered
[2022-10-10 12:03] VITALS: BP 152/70; PULSE 65; O2SAT 96
--- NOTE | 2022-10-10 12:59 | MHC.CM.PN ---
met with pt and her dgter plan is for pt to return to the [facility] is recommending home w/pt and rn services pt is kate barboza dc plan [facility] servceis
[2022-10-10] MEDS: Enoxaparin Sodium 40 MG/0.4 ML SYRINGE SUBCUT (14:02)
[2022-10-10 15:26] VITALS: BP 165/75; PULSE 76; RESP 16; TEMP 36.4; O2SAT 95
--- NOTE | 2022-10-10 16:39 | P.CNID_ITS ---
History of Present Illness Data of Consult Service Date: 10/10/22 Requesting physician: Chris Westfall Primary Care Provider: LUIS A Barry HPI Reason for consult: leg cellulitis She presents with redness left lower extremity and heat. She had skin tear on 09/21 and one week later developed redness and swelling LLE. She has no fever or chills. She was started on Kefzol and now is better. Review of Systems Review of Systems: Yes all other systems are reviewed and are negative PENDING SALE TO [facility] Past Medical History Medical History Alzheimer disease Chronic back pain Dementia HTN (hypertension) Recurrent UTI Squamous cell skin cancer Urge incontinence Family History Family History Mother Breast cancer Family history: reviewed and not pertinent Surgical History Surgical History H/O Spinal surgery H/O: hysterectomy Social History Social History Household Members: Family Housing: House Do you presently have visiting nurse or other home services: No Alcohol intake: never Patient Tobacco Use Status: Never used Tobacco Smoked in Last 30 Days: No Second Hand Smoke Exposure: No Use of substances other than those prescribed or required for medical reasons: No Currently Displaying Signs/Symptoms of Drug Intoxication Withdrawal: No Have you been hit, kicked, punched, or otherwise hurt by someone within the past year? If so, by whom?: No Do you feel safe in your current relationship?: No Current Relationship Is there a partner from a previous relationship who is making you feel unsafe now?: No Are you made to feel afraid or neglected: No Advance Directives: Yes Advance Directives on File: Yes Advance Directives Date on File: 06/01/22 Do you have thoughts of harming others: None Do you have a plan to hurt others: No Plan Recently lost weight without trying: No How much weight loss: Not applicable Eating poorly because of decreased appetite: No Nutrition screen score: 0 Nutrition Risks: No Nutritional Risk Patient : No : No Poor oral hygiene: No service: No Current occupational status: retired Meds Allergies Allergy/AdvReac Type Severity Reaction Status Date / Time No Known Allergies Allergy Verified 10/09/22 11:06 Active Medications: Current Medications Acetaminophen (Acetaminophen 325 Mg Tablet) 650 mg PO Q6H PRN PRN Reason: Pain, Mild (Pain Scale 1-3) Last Admin: 10/09/22 17:47 Dose: 650 mg Ascorbic Acid (Ascorbic Acid 500 Mg Tablet) 500 mg PO DAILY [facility] Last Admin: 10/10/22 08:21 Dose: 500 mg Docusate Sodium (Docusate Sodium 100 Mg Capsule) 100 mg PO BID [facility] Last Admin: 10/10/22 08:22 Dose: 100 mg Duloxetine HCl (Duloxetine Hcl 60 Mg Capsule.) 60 mg PO DAILY [facility] Last Admin: 10/10/22 08:22 Dose: 60 mg Enoxaparin Sodium (Enoxaparin Sodium 40 Mg/0.4 Ml Syringe) 40 mg SUBCUT Q24H [facility] Last Admin: 10/10/22 14:02 Dose: 40 mg Ferrous Sulfate (Ferrous Sulfate 324 Mg Tablet.) 324 mg PO DAILY [facility] Last Admin: 10/10/22 08:22 Dose: 324 mg Gabapentin (Gabapentin 100 Mg Capsule) 100 mg PO TID [facility] Last Admin: 10/10/22 14:02 Dose: 100 mg Cefazolin Sodium/Dextrose (Ancef) 2 gm in 50 mls @ 100 mls/hr IV Q8H [facility] Last Infusion: 10/10/22 14:33 Dose: Infused Metoprolol Succinate (Metoprolol Succinate Er 25 Mg Tab.Er.24h) 25 mg PO DAILY [facility]; Protocol Last Admin: 10/10/22 08:22 Dose: 25 mg Mirabegron (Mirabegron 50 Mg Tab.Er.24h) 50 mg PO DAILY [facility] Last Admin: 10/10/22 08:21 Dose: 50 mg Multivitamins/Vitamin C (Multivitamin Tablet) 1 tab PO DAILY [facility] Last Admin: 10/10/22 08:22 Dose: 1 tab Nitrofurantoin Macrocrystals (Nitrofurantoin Macrocrystal 50 Mg Capsule) 50 mg PO BEDTIME [facility] Last Admin: 10/09/22 20:20 Dose: 50 mg Omeprazole (Omeprazole 20 Mg Capsule.) 20 mg PO DAILY [facility] Last Admin: 10/10/22 08:22 Dose: 20 mg Ondansetron HCl (Ondansetron Hcl 4 Mg/2 Ml Vial) 4 mg IVPUSH Q8H PRN PRN Reason: Nausea and Vomiting Oxycodone HCl (Oxycodone Hcl Immed Release 5 Mg Tablet) 5 mg PO DAILY@1900 [facility] Last Admin: 10/09/22 18:14 Dose: 5 mg Oxycodone HCl (Oxycodone Hcl Immed Release 5 Mg Tablet) 5 mg PO Q6H PRN PRN Reason: Pain, Severe (Pain Scale 7-10) Last Admin: 10/10/22 04:15 Dose: 5 mg Pharmacy Consult (Consult Rx Perform Med Rec) 1 each MISCELLANE ONCE PRN PRN Reason: Consult order Quetiapine Fumarate (Quetiapine Fumarate 50 Mg Tablet) 50 mg PO BEDTIME [facility] Last Admin: 10/09/22 20:19 Dose: 50 mg Senna (Sennosides 8.6 Mg Tablet) 17.2 mg PO DAILY PRN PRN Reason: Constipation Sodium Chloride (0.9 % Sodium Chloride Flush 3 Ml Syringe) 3 ml IVFLUSH QSHIFT [facility] Last Admin: 10/10/22 16:01 Dose: 3 ml Vitamin D (Cholecalciferol (Vitamin D3) 25 Mcg Tablet) 25 mcg PO DAILY [facility] Last Admin: 10/10/22 08:22 Dose: 25 mcg Home Medications Medication Instructions Recorded Confirmed Last Taken Type ascorbic acid (vitamin C) 500 mg 500 mg PO DAILY 08/21/22 10/09/22 Unknown History tablet (Vitamin C) cholecalciferol (vitamin D3) 25 25 mcg PO DAILY 08/21/22 10/09/22 Unknown History mcg (1,000 unit) tablet docusate sodium 100 mg capsule 100 mg PO BID 08/21/22 10/09/22 Unknown History gabapentin 100 mg capsule 100 mg PO TID 08/21/22 10/09/22 Unknown History metoprolol succinate 25 mg 25 mg PO DAILY 08/21/22 10/09/22 Unknown History tablet,extended release 24 hr mirabegron 50 mg tablet,extended 50 mg PO DAILY 08/21/22 10/09/22 Unknown History release 24 hr (Myrbetriq) multivitamin 1 tab PO DAILY 08/21/22 10/09/22 Unknown History omeprazole 20 mg capsule,delayed 20 mg PO DAILY 08/21/22 10/09/22 Unknown History release oxycodone 5 mg tablet 5 mg PO Q6H PRN Pain 08/21/22 10/09/22 Unknown History quetiapine 50 mg tablet 50 mg PO BEDTIME 08/21/22 10/09/22 Unknown History sennosides 8.6 mg tablet (senna) 17.2 mg PO DAILY PRN Constipation 08/21/22 10/09/22 Unknown History duloxetine 60 mg capsule,delayed 60 mg PO DAILY 10/09/22 10/09/22 Unknown History release ferrous sulfate 325 mg (65 mg 325 mg PO DAILY 10/09/22 10/09/22 Unknown History iron) tablet nitrofurantoin macrocrystal 50 mg 50 mg PO BEDTIME 10/09/22 10/09/22 Unknown History capsule (Macrodantin) oxycodone 5 mg tablet 5 mg PO DAILY@1900 10/09/22 10/09/22 Unknown History Physical Exam Vital Signs: Vital Signs: Last Vital Signs Temp 97.5 F 10/10/22 15:26 Pulse 76 10/10/22 15:26 Resp 16 10/10/22 15:26 BP 165/75 H 10/10/22 15:26 Pulse Ox 95 10/10/22 15:26 O2 Del Method Room Air 10/10/22 15:26 BMI result Body Mass Index 22.9 Const: General: cooperative HEENT: Head: Yes normal to inspection Face and sinus: Yes normal facial exam Mouth: Normal oral and palatal mucosa present Teeth and gingiva: dentition normal Eyes: General: appearance normal, both eyes and all related structures Pupils: Equal, round and reactive pupils present Resp: Effort & Inspection: normal respiratory effort Cardio: Rate: regular rate Rhythm: regular rhythm GI: Palpation (GI): Soft to palpation and nontender : General: Yes no CVA tenderness Back/Spine/Pelvis: Back: no CVA tenderness Skin: General skin exam: no rashes or lesions noted Neuro: General: moves all extremities Cranial nerves: Yes Equal, round and reactive pupils present Extrem: Other: LLE resolving redness Psych: Appearance: grossly normal Results Labs 10/10/22 05:06 10/10/22 05:06 Labs: Short CBC 10/10/22 Range/Units 05:06 WBC 3.5 L (4.8-10.8) X10*3/uL Hgb 9.5 L (12.0-16.0) g/dl Hct 29.3 L (37.0-47.0) % Plt Count 223 (160-400) X10*3/uL BMP 10/10/22 05:06 Sodium 139 Potassium 4.2 Chloride 105 Carbon Dioxide 28 BUN 16 Creatinine 0.64 Calcium 8.5 Microbiology Microbiology Results: Microbiology 10/09/22 12:23 Blood - Venous Blood Culture - Preliminary No growth after 24 hours. 10/09/22 11:58 Blood - Venous Blood Culture - Preliminary No growth after 24 hours. 10/09/22 15:11 Leg Left Gram Stain - Final 10/09/22 15:11 Leg Left Routine Culture - Preliminary Staphylococcus species Assessment and Plan (1) Cellulitis of left lower extremity: Status: Acute She is improving and has probable strep infection She has no tinea pedis (2) Skin tear of lower leg without complication: Status: Acute Plan Continue Kefzol one to two days and then po Keflex 500 mg qid for seven days Moisturize skin avoid trauma. Time Spent With Patient Time: Total time managing care of this patient today ____ minutes.
[2022-10-10 20:04] VITALS: BP 175/75; PULSE 61; RESP 16; TEMP 36.8; O2SAT 95
[2022-10-10] MEDS: QUEtiapine Fumarate 50 MG TABLET PO (22:18)
[2022-10-10] MEDS: nitrofurantoin macrocrystaL 50 MG CAPSULE PO (22:18)
[2022-10-11 03:55] VITALS: BP 165/83; PULSE 70; RESP 17; TEMP 36.4; O2SAT 96
[2022-10-11] MEDS: ceFAZolin Sodium/Dextrose,Iso 2 GM/50 ML PIGGYBACK IV ×3 (06:33→22:59)
[2022-10-11] MEDS: 0.9 % Sodium Chloride Flush 3 ML SYRINGE IVFLUSH ×3 (06:59→19:29)
[2022-10-11 07:42] VITALS: BP 176/81; PULSE 72; RESP 17; TEMP 36.3; O2SAT 95
[2022-10-11] MEDS: Mirabegron 50 MG TAB.ER.24H PO (07:52)
[2022-10-11] MEDS: Gabapentin 100 MG CAPSULE PO ×3 (07:52→20:40)
[2022-10-11] MEDS: Docusate Sodium 100 MG CAPSULE PO ×2 (07:52→20:40)
[2022-10-11] MEDS: DULoxetine HCl 60 MG CAPSULE.DR PO (07:52)
[2022-10-11] MEDS: Ascorbic Acid 500 MG TABLET PO (07:52)
[2022-10-11] MEDS: Cholecalciferol (Vitamin D3) 25 MCG TABLET PO (07:53)
[2022-10-11] MEDS: Metoprolol Succinate ER 25 MG TAB.ER.24H PO (07:53)
[2022-10-11] MEDS: Multivitamin TABLET 1 TAB PO (07:53)
[2022-10-11] MEDS: Ferrous Sulfate 324 MG TABLET.DR PO (07:53)
[2022-10-11] MEDS: Omeprazole 20 MG CAPSULE.DR PO (07:53)
[2022-10-11 11:20] VITALS: BP 176/81; PULSE 72; O2SAT 95
--- NOTE | 2022-10-11 11:52 | HO.PM.IMPN ---
Subjective Subjective Date of Service: 10/11/22 Interval History: left leg cellulitis Review of Systems Erythema and pain improving wound culture pending No fever Physical Exam Vital Signs: Vital Signs: Last Vital Signs Temp 97.4 F 10/11/22 07:42 Pulse 72 10/11/22 11:20 Resp 17 10/11/22 07:42 BP 176/81 H 10/11/22 11:20 Pulse Ox 95 10/11/22 11:20 O2 Del Method Room Air 10/11/22 07:42 BMI result Body Mass Index 22.9 Appearance: Alert.? Oriented -seems baseline ,daughter at bedside. cvs: rrr, [id number] . res: clear to auscultation ,no rhonchii or wheezing abd: no rebound or guarding ,nt, bs present. ext pulses present , no cyanosis , left leg-ulcer area seems similar no discharge , has erythema of foot and leg area somewhat improving , no fluctuation. neuro: axo3 , nonfocal. Objective Data Active Medications Acetaminophen (Acetaminophen 325 Mg Tablet) 650 mg PO Q6H PRN PRN Reason: Pain, Mild (Pain Scale 1-3) Last Admin: 10/09/22 17:47 Dose: 650 mg Documented By: KENZIE Ascorbic Acid (Ascorbic Acid 500 Mg Tablet) 500 mg PO DAILY [facility] Last Admin: 10/11/22 07:52 Dose: 500 mg Documented By: BRENDA Docusate Sodium (Docusate Sodium 100 Mg Capsule) 100 mg PO BID [facility] Last Admin: 10/11/22 07:52 Dose: 100 mg Documented By: BRENDA Duloxetine HCl (Duloxetine Hcl 60 Mg Capsule.) 60 mg PO DAILY [facility] Last Admin: 10/11/22 07:52 Dose: 60 mg Documented By: BRENDA Enoxaparin Sodium (Enoxaparin Sodium 40 Mg/0.4 Ml Syringe) 40 mg SUBCUT Q24H [facility] Last Admin: 10/10/22 14:02 Dose: 40 mg Documented By: LOVE Ferrous Sulfate (Ferrous Sulfate 324 Mg Tablet.) 324 mg PO DAILY [facility] Last Admin: 10/11/22 07:53 Dose: 324 mg Documented By: BRENDA Gabapentin (Gabapentin 100 Mg Capsule) 100 mg PO TID [facility] Last Admin: 10/11/22 07:52 Dose: 100 mg Documented By: BRENDA Cefazolin Sodium/Dextrose (Ancef) 2 gm in 50 mls @ 100 mls/hr IV Q8H [facility] Last Infusion: 10/11/22 07:00 Dose: 0 mls/hr Documented By: BRENDA Metoprolol Succinate (Metoprolol Succinate Er 25 Mg Tab.Er.24h) 25 mg PO DAILY [facility]; Protocol Last Admin: 10/11/22 07:53 Dose: 25 mg Documented By: BRENDA Mirabegron (Mirabegron 50 Mg Tab.Er.24h) 50 mg PO DAILY [facility] Last Admin: 10/11/22 07:52 Dose: 50 mg Documented By: BRENDA Multivitamins/Vitamin C (Multivitamin Tablet) 1 tab PO DAILY [facility] Last Admin: 10/11/22 07:53 Dose: 1 tab Documented By: BRENDA Nitrofurantoin Macrocrystals (Nitrofurantoin Macrocrystal 50 Mg Capsule) 50 mg PO BEDTIME [facility] Last Admin: 10/10/22 22:18 Dose: 50 mg Documented By: MILAGROS Omeprazole (Omeprazole 20 Mg Capsule.Dr) 20 mg PO DAILY [facility] Last Admin: 10/11/22 07:53 Dose: 20 mg Documented By: BRENDA Ondansetron HCl (Ondansetron Hcl 4 Mg/2 Ml Vial) 4 mg IVPUSH Q8H PRN PRN Reason: Nausea and Vomiting Oxycodone HCl (Oxycodone Hcl Immed Release 5 Mg Tablet) 5 mg PO DAILY@1900 [facility] Last Admin: 10/10/22 18:20 Dose: 5 mg Documented By: BRENDA Oxycodone HCl (Oxycodone Hcl Immed Release 5 Mg Tablet) 5 mg PO Q6H PRN PRN Reason: Pain, Severe (Pain Scale 7-10) Last Admin: 10/10/22 04:15 Dose: 5 mg Documented By: RAUL Pharmacy Consult (Consult Rx Perform Med Rec) 1 each MISCELLANE ONCE PRN PRN Reason: Consult order Quetiapine Fumarate (Quetiapine Fumarate 50 Mg Tablet) 50 mg PO BEDTIME [facility] Last Admin: 10/10/22 22:18 Dose: 50 mg Documented By: MILAGROS Senna (Sennosides 8.6 Mg Tablet) 17.2 mg PO DAILY PRN PRN Reason: Constipation Sodium Chloride (0.9 % Sodium Chloride Flush 3 Ml Syringe) 3 ml IVFLUSH QSHIFT [facility] Last Admin: 10/11/22 06:59 Dose: 3 ml Documented By: BRENDA Vitamin D (Cholecalciferol (Vitamin D3) 25 Mcg Tablet) 25 mcg PO DAILY [facility] Last Admin: 10/11/22 07:53 Dose: 25 mcg Documented By: BRENDA Labs 10/10/22 05:06 10/10/22 05:06 Microbiology Microbiology Results: Microbiology 10/09/22 15:11 Gram Stain - Final Leg Left Routine Culture - Preliminary Staphylococcus aureus 10/09/22 12:23 Blood Culture - Preliminary Blood - Venous No growth after 24 hours. 10/09/22 11:58 Blood Culture - Preliminary Blood - Venous No growth after 24 hours. Assessment and Plan (1) Cellulitis of left lower extremity: Status: Acute Plan 82-year-old female history of Alzheimer's dementia, chronic low back pain, squamous cell carcinoma, urge incontinence, recurrent UTI on prophylactic macrobid, GERD admitted for cellulitis LLE having failed outpt oral abx therapy Cellulitis LLE with infected shallow ulceration posterior left leg from skin tear failed outpatient antibiotics minimum improvement so far -ESR 34, CRP 0.9. XRAY tib/fib unremarkable no leukocytosis of SIRS criteria.? No sepsis. blood culture pending,Wound culture-staph species (prelim) -IV cefazolin 2mg q8h (initiated 10/09),Consider wound care consult if no improvement. id eval noted ,Wound culture-staph species (prelim). Chronic low back pain-continue oxycodone, duloxetine, gabapentin. Urge incontincen with recurrent UTI-continue macrobid and myrbetriq. Alzheimers dementia-mentation baseline- able to answer questions appropriately HTN-continue metoprolol. Chronic normocytic anemia-likely related to chronic disease( further wokrup outpatient) she is on homeferrous sulfate -H/H baseline DVT prophylaxis- lovenox DNR/DNI per [facility] form ?patient requires inpatient stay :acute cellulitis failed outpatient antibiotics of the left lower extremity requiring IV antibiotics so far mimium effect ,wound cultures -pending idenfication/senstivities. Time Spent With Patient Time: Total time managing care of this patient today ____ minutes. Quality Stroke Does the patient have a stroke diagnosis?: No VTE Prior VTE?: No VTE Risk Level:: Medical - moderate - high VTE Device Contraindication: Treatment Not Indicated VTE Drug Contraindication: N/A - Med Ordered
[2022-10-11] MEDS: Enoxaparin Sodium 40 MG/0.4 ML SYRINGE SUBCUT (15:17)
[2022-10-11 15:56] VITALS: BP 170/77; PULSE 68; RESP 16; TEMP 36.8; O2SAT 96
[2022-10-11] MEDS: oxyCODONE HCl Immed Release 5 MG TABLET PO (18:25)
[2022-10-11 19:33] VITALS: BP 148/63; PULSE 78; RESP 16; TEMP 36.5; O2SAT 95
[2022-10-11] MEDS: nitrofurantoin macrocrystaL 50 MG CAPSULE PO (20:39)
[2022-10-11] MEDS: QUEtiapine Fumarate 50 MG TABLET PO (20:40)
--- NOTE | 2022-10-11 23:14 | HO.WOUNDCONS ---
History of Present Illness Data of Consult Service Date: 10/11/22 Requesting physician: Chris Westfall Primary Care Provider: LUIS A Barry [facility] Reason for consult: Left leg wound The patient is a 82-year-old female who is known to us in the past as a wound care patient after she had a laceration to her left lower leg. That has healed but over the last week to 2 she developed another wound with a skin tear posterior calf area. The wound progressed and the skin flap became necrotic but the patient also developed a cellulitis that did not respond to by mouth Keflex as an outpatient. She was admitted now treated with IV antibiotics and it is much improved. The wound itself is almost healed. Her daughter is here with her Review of Systems Review of Systems: Yes all other systems are reviewed and are negative [facility] Medical History Alzheimer disease Chronic back pain Dementia HTN (hypertension) Recurrent UTI Squamous cell skin cancer Urge incontinence Family History Mother Breast cancer Surgical History H/O Spinal surgery H/O: hysterectomy Social History Household Members: Family Housing: House Do you presently have visiting nurse or other home services: No Alcohol intake: never Patient Tobacco Use Status: Never used Tobacco Second Hand Smoke Exposure: No Advance Directives Date on File: 06/01/22 service: No Current occupational status: retired Meds Allergies Allergy/AdvReac Type Severity Reaction Status Date / Time No Known Allergies Allergy Verified 10/09/22 11:06 Active Medications: Current Medications Acetaminophen (Acetaminophen 325 Mg Tablet) 650 mg PO Q6H PRN PRN Reason: Pain, Mild (Pain Scale 1-3) Last Admin: 10/09/22 17:47 Dose: 650 mg Ascorbic Acid (Ascorbic Acid 500 Mg Tablet) 500 mg PO DAILY [facility] Last Admin: 10/11/22 07:52 Dose: 500 mg Docusate Sodium (Docusate Sodium 100 Mg Capsule) 100 mg PO BID [facility] Last Admin: 10/11/22 20:40 Dose: 100 mg Duloxetine HCl (Duloxetine Hcl 60 Mg Capsule.) 60 mg PO DAILY [facility] Last Admin: 10/11/22 07:52 Dose: 60 mg Enoxaparin Sodium (Enoxaparin Sodium 40 Mg/0.4 Ml Syringe) 40 mg SUBCUT Q24H [facility] Last Admin: 10/11/22 15:17 Dose: 40 mg Ferrous Sulfate (Ferrous Sulfate 324 Mg Tablet.) 324 mg PO DAILY [facility] Last Admin: 10/11/22 07:53 Dose: 324 mg Gabapentin (Gabapentin 100 Mg Capsule) 100 mg PO TID [facility] Last Admin: 10/11/22 20:40 Dose: 100 mg Cefazolin Sodium/Dextrose (Ancef) 2 gm in 50 mls @ 100 mls/hr IV Q8H [facility] Last Admin: 10/11/22 22:59 Dose: 100 mls/hr Metoprolol Succinate (Metoprolol Succinate Er 25 Mg Tab.Er.24h) 25 mg PO DAILY [facility]; Protocol Last Admin: 10/11/22 07:53 Dose: 25 mg Mirabegron (Mirabegron 50 Mg Tab.Er.24h) 50 mg PO DAILY [facility] Last Admin: 10/11/22 07:52 Dose: 50 mg Multivitamins/Vitamin C (Multivitamin Tablet) 1 tab PO DAILY [facility] Last Admin: 10/11/22 07:53 Dose: 1 tab Nitrofurantoin Macrocrystals (Nitrofurantoin Macrocrystal 50 Mg Capsule) 50 mg PO BEDTIME [facility] Last Admin: 10/11/22 20:39 Dose: 50 mg Omeprazole (Omeprazole 20 Mg Capsule.) 20 mg PO DAILY [facility] Last Admin: 10/11/22 07:53 Dose: 20 mg Ondansetron HCl (Ondansetron Hcl 4 Mg/2 Ml Vial) 4 mg IVPUSH Q8H PRN PRN Reason: Nausea and Vomiting Oxycodone HCl (Oxycodone Hcl Immed Release 5 Mg Tablet) 5 mg PO DAILY@1900 [facility] Last Admin: 10/11/22 18:25 Dose: 5 mg Oxycodone HCl (Oxycodone Hcl Immed Release 5 Mg Tablet) 5 mg PO Q6H PRN PRN Reason: Pain, Severe (Pain Scale 7-10) Last Admin: 10/10/22 04:15 Dose: 5 mg Pharmacy Consult (Consult Rx Perform Med Rec) 1 each MISCELLANE ONCE PRN PRN Reason: Consult order Quetiapine Fumarate (Quetiapine Fumarate 50 Mg Tablet) 50 mg PO BEDTIME [facility] Last Admin: 10/11/22 20:40 Dose: 50 mg Senna (Sennosides 8.6 Mg Tablet) 17.2 mg PO DAILY PRN PRN Reason: Constipation Sodium Chloride (0.9 % Sodium Chloride Flush 3 Ml Syringe) 3 ml IVFLUSH QSHIFT [facility] Last Admin: 10/11/22 19:29 Dose: 3 ml Vitamin D (Cholecalciferol (Vitamin D3) 25 Mcg Tablet) 25 mcg PO DAILY [facility] Last Admin: 10/11/22 07:53 Dose: 25 mcg Home Medications Medication Instructions Recorded Confirmed Last Taken Type ascorbic acid (vitamin C) 500 mg 500 mg PO DAILY 08/21/22 10/09/22 Unknown History tablet (Vitamin C) cholecalciferol (vitamin D3) 25 25 mcg PO DAILY 08/21/22 10/09/22 Unknown History mcg (1,000 unit) tablet docusate sodium 100 mg capsule 100 mg PO BID 08/21/22 10/09/22 Unknown History gabapentin 100 mg capsule 100 mg PO TID 08/21/22 10/09/22 Unknown History metoprolol succinate 25 mg 25 mg PO DAILY 08/21/22 10/09/22 Unknown History tablet,extended release 24 hr mirabegron 50 mg tablet,extended 50 mg PO DAILY 08/21/22 10/09/22 Unknown History release 24 hr (Myrbetriq) multivitamin 1 tab PO DAILY 08/21/22 10/09/22 Unknown History omeprazole 20 mg capsule,delayed 20 mg PO DAILY 08/21/22 10/09/22 Unknown History release oxycodone 5 mg tablet 5 mg PO Q6H PRN Pain 08/21/22 10/09/22 Unknown History quetiapine 50 mg tablet 50 mg PO BEDTIME 08/21/22 10/09/22 Unknown History sennosides 8.6 mg tablet (senna) 17.2 mg PO DAILY PRN Constipation 08/21/22 10/09/22 Unknown History duloxetine 60 mg capsule,delayed 60 mg PO DAILY 10/09/22 10/09/22 Unknown History release ferrous sulfate 325 mg (65 mg 325 mg PO DAILY 10/09/22 10/09/22 Unknown History iron) tablet nitrofurantoin macrocrystal 50 mg 50 mg PO BEDTIME 10/09/22 10/09/22 Unknown History capsule (Macrodantin) oxycodone 5 mg tablet 5 mg PO DAILY@1900 10/09/22 10/09/22 Unknown History Physical Exam Vital Signs and Narrative: Vital Signs: Last Vital Signs Temp 97.7 F 10/11/22 19:33 Pulse 78 10/11/22 19:33 Resp 16 10/11/22 19:33 BP 148/63 H 10/11/22 19:33 Pulse Ox 95 10/11/22 19:33 O2 Del Method Room Air 10/11/22 19:33 BMI result Body Mass Index 22.9 Skin: Other: On the posterior left calf the patient has a wound that is 2 x 1.5 cm with skin breakdown but new skin growing back. There is no significant edema of the leg and the cellulitic changes are much improved Results Labs 10/10/22 05:06 10/10/22 05:06 Assessment and Plan (1) Cellulitis of left lower extremity: Status: Acute (2) Skin tear of lower leg without complication: Status: Acute Plan 82-year-old female with left posterior leg skin tear wound and cellulitis both of which are improved. Plan to continue with dressings that are currently be carried out with Xeroform and just wrapping the area. Patient can be discharged once the medical team feels her cellulitis is improved and she can follow up with us as an outpatient in the wound care center. The patient and her daughter would like to do this. Time Spent With Patient Time: Total time managing care of this patient today ____ minutes.
[2022-10-12 03:31] VITALS: BP 166/78; PULSE 70; RESP 17; TEMP 36.1; O2SAT 98
[2022-10-12] MEDS: Acetaminophen 325 MG TABLET 650 MG PO (03:59)
[2022-10-12] MEDS: ceFAZolin Sodium/Dextrose,Iso 2 GM/50 ML PIGGYBACK IV (06:18)
[2022-10-12 08:00] VITALS: BP 164/86; PULSE 65; RESP 16; TEMP 36.6; O2SAT 95
[2022-10-12] MEDS: Ferrous Sulfate 324 MG TABLET.DR PO (09:31)
[2022-10-12] MEDS: Mirabegron 50 MG TAB.ER.24H PO (09:31)
[2022-10-12] MEDS: Omeprazole 20 MG CAPSULE.DR PO (09:31)
[2022-10-12] MEDS: Cholecalciferol (Vitamin D3) 25 MCG TABLET PO (09:32)
[2022-10-12] MEDS: DULoxetine HCl 60 MG CAPSULE.DR PO (09:32)
[2022-10-12] MEDS: Multivitamin TABLET 1 TAB PO (09:32)
[2022-10-12] MEDS: Ascorbic Acid 500 MG TABLET PO (09:32)
[2022-10-12] MEDS: Metoprolol Succinate ER 25 MG TAB.ER.24H PO (09:32)
[2022-10-12] MEDS: Gabapentin 100 MG CAPSULE PO (09:34)
[2022-10-12] MEDS: Docusate Sodium 100 MG CAPSULE PO (09:34)
[2022-10-12] MEDS: 0.9 % Sodium Chloride Flush 3 ML SYRINGE IVFLUSH (09:35)
[2022-10-12 10:45] VITALS: BP 164/86; PULSE 65; O2SAT 95
--- NOTE | 2022-10-12 11:14 | MHC.CM.PN ---
IMM 10/12/22 Patient is discharged today. She will return to the [facility] with new [facility]. Home services will include SN and PT. Patients sally/Martha has arranged for private transport home provided by [facility] .
--- NOTE | 2022-10-12 14:32 | P.F2F_ITS ---
Service Date Service Date: 10/12/22 Encounter Date of encounter: 10/12/22 Encounter: leg cellulitis , small wound -healing Reasons for Services Signs and symptoms assessed: moniter leg wound area ,fevers. Reason for senior care: wound care, medication management, medication treatment and teach disease management Reason for physical therapy: home safety and mobility, therapeutic exercises, restore joint function, gait/transfer training, assess need for DME, ADL training, energy conservation and other MD Overseeing Care: Thelma Obrien Homebound: Leaving the home is medically contraindicated at this time without the asist of a device and/or another person due th the listed conditions above and below. Reason homebound: weakness related to hospital stay Homebound supporting statement: Patient is generalized weak with multiple comorbidities including leg ulcer and cellulitis need help to go to appointments, dressing change, labs draws. Certification: Based on the above findings, I certify that this patient is confined to the home and needs intermittent senior care care, physical therapy and/or speech therapy, or continues to need occupational therapy. The patient is under my care, and I have initiated the establishment of the plan of care. The patient will be followed by a physician who will periodically review the plan of care. Time Spent With Patient Time: Total time managing care of this patient today ____ minutes.
--- NOTE | 2022-10-12 14:38 | PM.DS ---
DS: Providers Provider Date of Service: 10/12/22 Date of admission: 10/09/22 14:11 Date of discharge: 10/12/22 Primary care physician: LUIS A Barry Consults: 10/10/22 10:18 Consult to Infectious Diseases Routine Consulting Provider: [facility] [place], [place] Infectious Disease Reason for consultation: leg cellulitis Has provider been notified: No 10/11/22 07:52 Consult to Wound Care Routine Consulting Provider: [facility] [place] [place] Wound Care Management Reason for consultation: leg wound DS: Diagnosis Discharge Diagnosis (1) Cellulitis of left lower extremity: Status: Acute (2) Skin tear of lower leg without complication: Status: Acute DS: Summary Hospital Course Hospital Course: 82-year-old female history of Alzheimer's dementia, chronic low back pain, squamous cell carcinoma, urge incontinence, recurrent UTI on prophylactic macrobid, GERD presented to the ED earlier today from [facility] at the advice of her PCP for evaluation of cellulitis of the left lower extremity.? The patient sustained a skin tear the posterior left lower leg about 2 weeks ago and developed erythema, warmth surrounding the wound with minimal drainage.? She was placed on cefuroxime by her PCP and has been taking the medication as prescribed for the last 4 days.? However, the redness seems to be worsening with associated pain, warmth.? No further drainage from the wound. ? On arrival to the ED, vital signs stable though is she is slightly hypertensive at 176/78.? There is no leukocytosis.? Renal function baseline, electrolyte levels normal.? ESR 34, CRP 0.91.? X-ray of the tibia/ fibula is without any acute abnormality.? While in the ED, she was treated with 3.375 g Zosyn.? She will be admitted for further management of acute cellulitis of the left lower extremity requiring IV antibiotics having failed outpatient oral antibiotic therapy. Hospital course: Patient came with the leg cellulitis which started after patient had seen on leg ulcer due to injury-patient was started on IV antibiotics seems to be improving significantly, blood cultures negative, wound culture growing Staph aureus but not MRSA(checked with micro lab). Discussed with infectious disease: Patient was started on Keflex on discharge. Patient seen by wound care for-continue with dressings that are currently be carried out with Xeroform and just wrapping the area, d/w Id -we will start p.o. keflex upon discharge. Currently patient is asymptomatic , no leukocytosis or fever. plan: complete course of antibiotics ,continue above dressing going home with services/pt. follow up with wound care outpatient. Above management discussed the patient and patient daughter in detail length they both understand and in agreement with the plan time spent 50 minutes. Time Spent with Patient Time attestation: Total time managing care of this patient today ____ minutes. Discharge coordination time: Greater than 30 minutes Quality: Safe Use of Opioids Does Pt have an Active Cancer Diagnosis on the Problem List?: No Quality: Stroke Does the patient have a stroke diagnosis?: No Physical Exam Vital Signs: Vital Signs: Last Vital Signs Temp 97.9 F 10/12/22 08:00 Pulse 65 10/12/22 10:45 Resp 16 10/12/22 08:00 BP 164/86 H 10/12/22 10:45 Pulse Ox 95 10/12/22 10:45 O2 Del Method Room Air 10/12/22 08:00 BMI result Body Mass Index 22.9 Appearance: Alert.? Oriented -seems baseline. cvs: rrr, [id number] . res: clear to auscultation ,no rhonchii or wheezing abd: no rebound or guarding ,nt, bs present. ext pulses present , no cyanosis , left leg-ulcer area seems similar no discharge , has erythema of foot and leg area somewhat improved,ulcer area also healin , no fluctuation. neuro: axo3 , nonfocal. DS: Data Data Completed and Pending Labs on day of discharge: Preliminary micro results at discharge 10/09/22 12:23 Blood Culture - Preliminary Blood - Venous No growth after 48 hours. 10/09/22 11:58 Blood Culture - Preliminary Blood - Venous No growth after 48 hours. 10/09/22 15:11 Routine Culture - Preliminary Leg Left Staphylococcus aureus Discharge Plan Discharge Anticipated Discharge Date/Time: 10/12/22 10:35 Patient Disposition: Home Health Service Discharge Diagnosis: left lower extremity cellulitis Referrals: [facility] [Outside] - 1 Week Thelma Obrien PA [Primary Care Provider] - 1 Week Discharge Medications: New cephalexin 500 mg capsule 500 mg PO BID Qty: 14 0RF Continued multivitamin Tablet 1 tab PO DAILY sennosides [senna] 8.6 mg Tablet 17.2 mg PO DAILY PRN (Reason: Constipation) ascorbic acid (vitamin C) [Vitamin C] 500 mg Tablet 500 mg PO DAILY docusate sodium 100 mg Capsule 100 mg PO BID omeprazole 20 mg capsule,delayed release(DR/EC) 20 mg PO DAILY gabapentin 100 mg capsule 100 mg PO TID metoprolol succinate 25 mg tablet extended release 24 hr 25 mg PO DAILY quetiapine 50 mg tablet 50 mg PO BEDTIME cholecalciferol (vitamin D3) 25 mcg (1,000 unit) Tablet 25 mcg PO DAILY Myrbetriq 50 mg tablet extended release 24 hr 50 mg PO DAILY oxycodone 5 mg tablet 5 mg PO Q6H PRN (Reason: Pain) duloxetine 60 mg capsule,delayed release(DR/EC) 60 mg PO DAILY nitrofurantoin macrocrystal [Macrodantin] 50 mg Capsule 50 mg PO BEDTIME Rx Instructions: must administer with a meal/food ferrous sulfate 325 mg (65 mg iron) Tablet 325 mg PO DAILY oxycodone 5 mg Tablet 5 mg PO DAILY@1900 Discontinued cefuroxime axetil 250 mg tablet 250 mg PO BID 7 Days Qty: 14 0RF Discharge Orders: Discharge Order (Routine); Ordered 10/12/22 Ordered By: Chris Westfall Diet: Advance to usual diet Activity on Discharge: As tolerated Stand Alone Forms: Patient Portal Discharge page Care Plan Goals: Patient came with the leg cellulitis which started after patient had seen on leg ulcer due to injury-patient was started on IV antibiotics seems to be improving significantly, blood cultures negative, wound culture growing Staph aureus but not MRSA(checked with micro lab). Discussed with infectious disease: Patient was started on Keflex on discharge. Patient seen by wound care for-continue with dressings that are currently be carried out with Xeroform and just wrapping the area, we will start p.o. antibiotics plan discharge. Currently patient is asymptomatic , no leukocytosis or fever. Health Concerns: As above. Plan of Treatment: As above. Assessment: As above. Discharge Date/Time: 10/12/22 14:10
== END 2022-10-12 14:10 | disposition home health service (06) | DRG 603 ==
LOC: HO.ED 13:01 → HO.EDOVER 14:25 → HO.S3 14:55
PROVIDERS: Physician Assistant Medical; Admitting Provider Physician Assistant; Emergency Provider Emergency Medicine Emergency Medical Services; PCP Physician Assistant Medical; Visit Provider Internal Medicine
DX: L03.116 Cellulitis of left lower limb (principal); L97.829 Non-pressure chronic ulcer of other part of left lower leg with unspecified severity; Z66 Do not resuscitate; D63.8 Anemia in other chronic diseases classified elsewhere; G89.29 Other chronic pain; M54.59 Other low back pain; G30.9 Alzheimer's disease, unspecified; F02.80 Dementia in other diseases classified elsewhere, unspecified severity, without behavioral disturbance, psychotic disturbance, mood disturbance, and anxiety; N39.41 Urge incontinence; B95.61 Methicillin susceptible Staphylococcus aureus infection as the cause of diseases classified elsewhere; Z20.822 Contact with and (suspected) exposure to COVID-19; Z87.440 Personal history of urinary (tract) infections; Z79.2 Long term (current) use of antibiotics; Z79.891 Long term (current) use of opiate analgesic; Z79.899 Other long term (current) drug therapy
CPT/HCPCS: 36415; 73590; 80048; 80053; 83605; 83735; 85025; 85652; 86140; 87040; 87070; 87077; 87186; 87205; 87635; 97116; 97162; 99285; J0690; J1650; J2543

== ENCOUNTER 2022-10-18 13:52 | Outpatient (RCR) | payer MEDICARE, SELFPAY | END 2022-11-08 16:00 | disposition home or self-care (01) | LOC: HO.WCC 13:52 | PROVIDERS: PCP Physician Assistant Medical; Visit Provider Surgery | DX: S81.812D Laceration without foreign body, left lower leg, subsequent encounter (principal); Z79.899 Other long term (current) drug therapy; X58.XXXD Exposure to other specified factors, subsequent encounter; Z79.891 Long term (current) use of opiate analgesic | CPT/HCPCS: 11042; 97597; 99212; 99213 ==

== ENCOUNTER 2022-10-19 13:47 | Emergency (ER) | payer MEDICARE, SELFPAY ==
--- NOTE | ~2022-10-19 | CT_ITS ---
EXAMINATION: Head and cervical spine CT without IV contrast CLINICAL INFORMATION: Fall. Headache and neck pain COMPARISON: Previous exam most recent August 2022 TECHNIQUE: Axial images through the head and cervical spine without IV contrast. Sagittal and coronal reconstructions on the technologist workstation were performed. This CT examination was performed using dose optimization techniques as appropriate, variously including the following: *Automated exposure control *Adjustment of mA and/or kV according to patient size (this includes techniques or standardized protocols for targeted exams where dose is matched to indication/reason for exam; i.e. extremities or head) *Use of iterative reconstruction technique DLP 8 8 3 mg/cm FINDINGS: Head CT: There is no evidence of an extra-axial collection. There is no evidence of intra or extra-axial hemorrhage. The ventricles and extra-axial CSF spaces are slightly prominent suggestive of mild generalized atrophy. There is nonspecific periventricular white matter disease. No mass, mass effect or infarct. No skull fracture. Visualized paranasal sinuses, mastoid air cells and middle ears are clear. Cervical spine CT: Bone alignment is normal. No fracture or dislocation. There is fixation hardware and intervertebral body disc device at C6-C7. There is bony ankylosis at the C5-C6 disc space level. There is degenerative spondylosis and degenerative disc disease at C4-C5 and C7-T1 and T1-T2. There is degenerative change at the C1 dens articulation. There is a well-corticated ossification posterior to the C5 spinous process likely related to old trauma. Prevertebral soft tissues are normal. There is partially visualized fusion hardware in the upper thoracic spine. Visualized lung apices are clear. CT/CT cervical spine wo IV con IMPRESSION: Head CT: No acute findings. Cervical spine CT: Stable postoperative changes. Degenerative changes. No fracture or dislocation.
[2022-10-19 14:15] VITALS: BP 183/94; PULSE 72; O2SAT 99
[2022-10-19 14:29] VITALS: PULSE 63; RESP 18; TEMP 36.5; O2SAT 98; BMI 22.0
--- NOTE | 2022-10-19 14:38 | ECG_ITS ---
Test Reason : fall Blood Pressure : / mmHG Vent. Rate : 058 BPM Atrial Rate : 058 BPM P-R Int : 144 ms QRS Dur : 080 ms QT Int : 412 ms P-R-T Axes : -14 004 026 degrees QTc Int : 404 ms Sinus bradycardia Otherwise normal ECG When compared with ECG of 21-AUG-2022 10:01, Fusion complexes are no longer Present Premature ventricular complexes are no longer Present Premature supraventricular complexes are no longer Present Referred By: Chay Gutierrez Electronically Signed By:CHARLEY DENNIS MD
--- NOTE | 2022-10-19 14:43 | ED_ITS ---
HPI - Fall General Chief Complaint: Fall Stated Complaint: Fall, head/neck pain per EMS Time Seen by Provider: 10/19/22 14:35 Source: EMS Mode of arrival: EMS Limitations: other (dementia) History of Present Illness HPI Narrative: This is 82 years old female brought in from assisted living because of a fall, no syncope MD complaint: fall Onset (ago): hour(s) (2) Fall from: standing Fall witnessed: yes, by living facility staff Place fall occurred: other (assisting living) Loss of consciousness: none Prolonged down time: no Symptoms prior to fall: none Associated symptoms (after fall): denies Related Data Home Medications Medication Instructions Recorded Confirmed ascorbic acid (vitamin C) 500 mg 500 mg PO DAILY 08/21/22 10/09/22 tablet (Vitamin C) cholecalciferol (vitamin D3) 25 25 mcg PO DAILY 08/21/22 10/09/22 mcg (1,000 unit) tablet docusate sodium 100 mg capsule 100 mg PO BID 08/21/22 10/09/22 gabapentin 100 mg capsule 100 mg PO TID 08/21/22 10/09/22 metoprolol succinate 25 mg 25 mg PO DAILY 08/21/22 10/09/22 tablet,extended release 24 hr mirabegron 50 mg tablet,extended 50 mg PO DAILY 08/21/22 10/09/22 release 24 hr (Myrbetriq) multivitamin 1 tab PO DAILY 08/21/22 10/09/22 omeprazole 20 mg capsule,delayed 20 mg PO DAILY 08/21/22 10/09/22 release oxycodone 5 mg tablet 5 mg PO Q6H PRN Pain 08/21/22 10/09/22 quetiapine 50 mg tablet 50 mg PO BEDTIME 08/21/22 10/09/22 sennosides 8.6 mg tablet (senna) 17.2 mg PO DAILY PRN Constipation 08/21/22 10/09/22 duloxetine 60 mg capsule,delayed 60 mg PO DAILY 10/09/22 10/09/22 release ferrous sulfate 325 mg (65 mg 325 mg PO DAILY 10/09/22 10/09/22 iron) tablet nitrofurantoin macrocrystal 50 mg 50 mg PO BEDTIME 10/09/22 10/09/22 capsule (Macrodantin) oxycodone 5 mg tablet 5 mg PO DAILY@1900 10/09/22 10/09/22 Previous Rx's Medication Instructions Recorded cephalexin 500 mg capsule 500 mg PO BID #14 caps 10/12/22 Allergies Allergy/AdvReac Type Severity Reaction Status Date / Time No Known Allergies Allergy Verified 10/09/22 11:06 Review of Systems Review of Systems: Yes Other (dementia) Cardiovascular: Cardiovascular: Reports no additional cardiovascular complaints Gastrointestinal: Gastrointestinal: Reports no additional gastrointestinal co mplaints Neurologic: Reports system reviewed and no additional complaints, except as documented [facility] Past Medical History Medical History Alzheimer disease Chronic back pain Dementia HTN (hypertension) Recurrent UTI Squamous cell skin cancer Urge incontinence Surgical History H/O Spinal surgery H/O: hysterectomy Family History Family History Mother Breast cancer Social History Social History Household Members: Family Housing: House Do you presently have visiting nurse or other home services: No Alcohol intake: never Patient Tobacco Use Status: Never used Tobacco Second Hand Smoke Exposure: No Advance Directives: Yes Advance Directives on File: Yes Advance Directives Date on File: 06/01/22 service: No Current occupational status: retired Physical Exam Vital Signs: Vital Signs: Last Vital Signs Temp 97.7 F 10/19/22 14:29 Pulse 63 10/19/22 14:29 Resp 18 10/19/22 14:29 Pulse Ox 98 10/19/22 14:29 O2 Del Method Room Air 10/19/22 14:29 BMI result Body Mass Index 22.0 Const: General: cooperative Nutritional Appearance: average body habitus Orientation/consciousness: oriented to place HEENT: Head: Yes normal to inspection General nose exam: Normal external nose present Face and sinus: Yes normal facial exam Mouth: Normal oral and palatal mucosa present Throat: Yes posterior oropharynx normal Neck: Neck: Yes normal visual inspection and Yes full ROM Chest: Chest palpation & inspection: normal inspection of the chest Resp: Effort & Inspection: normal respiratory effort and able to speak in complete sentences Auscultation: clear to auscultation bilaterally Cardio: Jugular venous distension: no JVD Rate: regular rate Rhythm: regular rhythm GI: Inspection: Yes normal to inspection Palpation (GI): Soft to palpation Auscultation: normal bowel sounds Back/Spine/Pelvis: Thoracic/Lumbar Spine: thoracic and lumbar spine normal to inspection Pelvis: no pain with anterior-posterior compression Neuro: General: oriented to place Cranial nerves: Yes CN's II-XII intact bilaterally Cognition (Neuro): normal cognition Course Reevaluation(s) Reevaluation #1: Doing better I ambulated the patient in the hallway she was able to ambulate , plan discharged to the nursing facility Time: 16:23 Medical Decision Making Medical Decision Making MDM Narrative: Patient presented with fall mechanical no syncope imaging were negative she ambulated well plan discharge back to the [facility] Differential Diagnosis Differential Diagnoses: The differential diagnosis associated with the present ation includes Admission/Observation Consideration of admission/observation: Escalation of care including admission/observation considered Independent Interpretation I performed an independent interpretation of an: EKG and CT Scan Interpretation: NSR 58 no ischemic changes Radiology Impression Discussion of test interpretation with radiology: I have reviewed the radiologist's reading. Radiologist Impression: Head CT: There is no evidence of an extra-axial collection. There is no evidence of intra or extra-axial hemorrhage. The ventricles and extra-axial CSF spaces are slightly prominent suggestive of mild generalized atrophy. There is nonspecific periventricular white matter disease. No mass, mass effect or infarct. No skull fracture. Visualized paranasal sinuses, mastoid air cells and middle ears are clear. Cervical spine CT: Bone alignment is normal. No fracture or dislocation. There is fixation hardware and intervertebral body disc device at C6-C7. There is bony ankylosis at the C5-C6 disc space level. There is degenerative spondylosis and degenerative disc disease at C4-C5 and C7-T1 and T1-T2. There is degenerative change at the C1 dens articulation. There is a well-corticated ossification posterior to the C5 spinous process likely related to old trauma. Prevertebral soft tissues are normal. There is partially visualized fusion hardware in the upper thoracic spine. Visualized lung apices are clear.? CT/CT head/brain wo IV con IMPRESSION: Head CT: No acute findings. ? Cervical spine CT: Stable postoperative changes. Degenerative changes. No fracture or dislocation.? Discharge Plan Discharge Clinical Impression: Fall, Contusion of neck Patient Disposition: Home, Self-Care Instructions: Fall Prevention for Older Adults (ED), Fall Prevention (ED) Prescriptions: No Action multivitamin Tablet 1 tab PO DAILY sennosides [senna] 8.6 mg Tablet 17.2 mg PO DAILY PRN (Reason: Constipation) ascorbic acid (vitamin C) [Vitamin C] 500 mg Tablet 500 mg PO DAILY docusate sodium 100 mg Capsule 100 mg PO BID omeprazole 20 mg capsule,delayed release(DR/EC) 20 mg PO DAILY gabapentin 100 mg capsule 100 mg PO TID metoprolol succinate 25 mg tablet extended release 24 hr 25 mg PO DAILY quetiapine 50 mg tablet 50 mg PO BEDTIME cholecalciferol (vitamin D3) 25 mcg (1,000 unit) Tablet 25 mcg PO DAILY Myrbetriq 50 mg tablet extended release 24 hr 50 mg PO DAILY oxycodone 5 mg tablet 5 mg PO Q6H PRN (Reason: Pain) duloxetine 60 mg capsule,delayed release(DR/EC) 60 mg PO DAILY nitrofurantoin macrocrystal [Macrodantin] 50 mg Capsule 50 mg PO BEDTIME Rx Instructions: must administer with a meal/food ferrous sulfate 325 mg (65 mg iron) Tablet 325 mg PO DAILY oxycodone 5 mg Tablet 5 mg PO DAILY@1900 cephalexin 500 mg capsule 500 mg PO BID Qty: 14 0RF
--- NOTE | 2022-10-19 16:50 | MHC.CM.ED ---
Received case management consult from Dr Gutierrez. Patient came to the ER after a fall. Work up essentially negative. Patient is a resident of [facility] assisted [facility] in [place]. T/W attempted to speak with nursing. They are currently busy. [employer] is going to let nursing know the pateint will be returning to their facility. ER telephone number provided in case they have any questions or concerns. Homa BRISENO booked. [facility] with chart. Patient, Gerardo VICK and Dr Gutierrez aware. Continue to monitor for d/c needs.
== END 2022-10-19 19:28 | disposition home or self-care (01) ==
PROVIDERS: Emergency Provider Emergency Medicine; PCP Physician Assistant Medical
DX: S10.93XA Contusion of unspecified part of neck, initial encounter (principal); W19.XXXA Unspecified fall, initial encounter; R51.9 Headache, unspecified; G30.9 Alzheimer's disease, unspecified; F02.80 Dementia in other diseases classified elsewhere, unspecified severity, without behavioral disturbance, psychotic disturbance, mood disturbance, and anxiety; I10 Essential (primary) hypertension; Z87.440 Personal history of urinary (tract) infections; Y93.9 Activity, unspecified; Y92.099 Unspecified place in other non-institutional residence as the place of occurrence of the external cause; Y99.9 Unspecified external cause status
CPT/HCPCS: 70450; 72125; 93005; 99283; 99284

== ENCOUNTER 2022-11-19 17:13 | Inpatient (IN) | payer MEDICARE, SELFPAY ==
--- NOTE | ~2022-11-19 | CT_ITS ---
EXAMINATION: CT ABDOMEN AND PELVIS WITH CONTRAST CLINICAL INFORMATION: b/l flank pain + UTI ? pyelo COMPARISON: 05/08/2022 TECHNIQUE: Multidetector volumetric imaging was performed from the superior aspect of the liver through the pubic symphysis following administration of 85 mL Omnipaque 300 intravenous contrast. Sagittal and coronal reformatted images were obtained on the technologist workstation.. This CT examination was performed using dose optimization techniques as appropriate, variously including the following: *Automated exposure control *Adjustment of mA and/or kV according to patient size (this includes techniques or standardized protocols for targeted exams where dose is matched to indication/reason for exam; i.e. extremities or head) *Use of iterative reconstruction technique DLP: 465 mGy-cm FINDINGS: LUNG BASES: Linear scarring or atelectasis at the left lung base. LIVER, GALLBLADDER, AND BILIARY TREE: Although obscured by metallic artifact from the spinal hardware, there are several low-attenuation hepatic cysts seen. No suspicious hepatic lesion or biliary ductal dilatation. The gallbladder is unremarkable with no evidence of radiopaque gallstones, gallbladder wall thickening, or obvious pericholecystic inflammatory changes. PANCREAS: Unremarkable. SPLEEN: Unremarkable. ADRENAL GLANDS: Unremarkable. KIDNEYS AND URETERS: The kidneys are normal in size, shape, and attenuation. No hydronephrosis, hydroureter, or calculi seen. No perinephric stranding. BLADDER: Partially decompressed. Likely urethral bulking agent again noted GASTROINTESTINAL TRACT: Colon is redundant. There is scattered diverticulosis but no colonic wall thickening or pericolonic inflammatory change to suggest diverticulitis. The appendix is not visualized and presumably surgically absent. Visualized small bowel is unremarkable. Probable duodenal diverticulum in the region of the second portion the duodenum difficult to define due to artifact from the spinal hardware. ABDOMINAL WALL: No significant hernia is appreciated. LYMPHOVASCULAR STRUCTURES: Vascular calcification within the aorta iliac system. No bulky adenopathy PELVIC VISCERA: Presumably surgically absent OSSEOUS STRUCTURES: Multilevel degenerative changes in the spine with spinal hardware seen in the lower thoracic and upper lumbar spine. Extensive metallic artifact limits assessment of the bones in this region. CT/CT abdomen pelvis w IV con IMPRESSION: Although degraded by beam hardening artifact from spinal hardware, I do not appreciate any acute abnormality within the kidneys or collecting systems. No obstructive changes or perinephric stranding. Bladder is decompressed and grossly unremarkable. Chronic appearing changes as described above
--- NOTE | 2022-11-19 17:16 | ED_ITS ---
HPI - General Adult General Chief complaint: Urogenital-Female Stated complaint: kidney infection? Time Seen by Provider: 11/19/22 17:30 Source: patient Mode of arrival: ambulatory Limitations: no limitations History of Present Illness HPI narrative: This is an 82-year-old female presenting to the emergency department complaints of worsening UTI infection, subjective fevers and chills and bilateral flank pain. According to patient and patient's daughter patient recently had a UTI was treated with antibiotics (Keflex), despite this she has continued to have urinary symptoms such as urinary frequency, urgency as well as bilateral flank discomfort. Patient's daughter is at the bedside in shows me patient's urine culture which shows >100,000 enterobacter cloacae complex with resistance to bactrim, augmentin,cefazolin, ceftazidim, ciprofloxacin, Macrobid, levofloxacin. Susceptible to cefepime, ertapenem, imipenem and tobramycin and gentamicin. Patient denies chest pain, shortness of breath, nausea, vomiting, abdominal pain, hematuria. Related Data Home Medications Medication Instructions Recorded Confirmed ascorbic acid (vitamin C) 500 mg 500 mg PO DAILY 08/21/22 10/09/22 tablet (Vitamin C) cholecalciferol (vitamin D3) 25 25 mcg PO DAILY 08/21/22 10/09/22 mcg (1,000 unit) tablet docusate sodium 100 mg capsule 100 mg PO BID 08/21/22 10/09/22 gabapentin 100 mg capsule 100 mg PO TID 08/21/22 10/09/22 metoprolol succinate 25 mg 25 mg PO DAILY 08/21/22 10/09/22 tablet,extended release 24 hr mirabegron 50 mg tablet,extended 50 mg PO DAILY 08/21/22 10/09/22 release 24 hr (Myrbetriq) multivitamin 1 tab PO DAILY 08/21/22 10/09/22 omeprazole 20 mg capsule,delayed 20 mg PO DAILY 08/21/22 10/09/22 release oxycodone 5 mg tablet 5 mg PO Q6H PRN Pain 08/21/22 10/09/22 quetiapine 50 mg tablet 50 mg PO BEDTIME 08/21/22 10/09/22 sennosides 8.6 mg tablet (senna) 17.2 mg PO DAILY PRN Constipation 08/21/22 10/09/22 duloxetine 60 mg capsule,delayed 60 mg PO DAILY 10/09/22 10/09/22 release ferrous sulfate 325 mg (65 mg 325 mg PO DAILY 10/09/22 10/09/22 iron) tablet nitrofurantoin macrocrystal 50 mg 50 mg PO BEDTIME 10/09/22 10/09/22 capsule (Macrodantin) oxycodone 5 mg tablet 5 mg PO DAILY@1900 10/09/22 10/09/22 Previous Rx's Medication Instructions Recorded cephalexin 500 mg capsule 500 mg PO BID #14 caps 10/12/22 Allergies Allergy/AdvReac Type Severity Reaction Status Date / Time No Known Allergies Allergy Verified 11/19/22 17:19 Review of Systems 2 Review of Systems: Constitutional : No Weight loss, No Fever, No Chills, No Fatigue, No Malaise ENT/Mouth : No sore throat, No Rhinorrhea Eyes: No Eye Pain, No Swelling, No Redness Cardiovascular : No Chest Pain, No SOB, No Dyspnea on Exertion, No Orthopnea, No Edema, No Palpitations Respiratory : No Cough, No Sputum, No Wheezing Gastrointestinal : No Nausea, No Vomiting, No Diarrhea, No Constipation, No abdominal Pain, No Hematochezia, No Melena Genitourinary : No Dysuria, + Urinary Frequency, No Hematuria, Musculoskeletal : No joint pain, No Myalgias, No Joint Swelling, + flank pain Skin : No Skin Lesions, No rash Neuro : No Weakness, No Numbness, No Dizziness, No Headache Psych : No Anxiety/Panic, No Depression All other systems reviewed and are negative Yes all other systems are reviewed and are negative PMFSH Past Medical History Attestation statement: The following information was validated with the patient. Source: old records reviewed and nursing notes reviewed Medical History Alzheimer disease Chronic back pain Dementia HTN (hypertension) Recurrent UTI Squamous cell skin cancer Urge incontinence Surgical History H/O Spinal surgery H/O: hysterectomy Family History Family History Mother Breast cancer Social History Social History Household Members: Family Housing: House Do you presently have visiting nurse or other home services: No Alcohol intake: never Patient Tobacco Use Status: Never used Tobacco Smoked in Last 30 Days: No Second Hand Smoke Exposure: No Advance Directives: Yes Advance Directives on File: Yes Advance Directives Date on File: 06/01/22 Patient : No service: No Current occupational status: retired Physical Exam ED Vital Signs: Vital Signs - 24 hr 11/19/22 17:20 11/19/22 17:43 11/19/22 18:53 Temperature 97.8 F Pulse Rate 85 76 85 Respiratory Rate 16 16 16 Blood Pressure 163/52 H 144/66 H 147/67 H Pulse Oximetry 96 98 97 Oxygen Delivery Method Room Air Room Air Room Air 11/19/22 20:01 11/19/22 21:45 11/19/22 22:15 Temperature 98.0 F 98.3 F Pulse Rate 81 83 Respiratory Rate 14 16 18 Blood Pressure 147/66 H 141/59 H Pulse Oximetry 95 93 Oxygen Delivery Method Room Air Room Air BMI result Body Mass Index 22.6 vss Appearance: Alert.? Oriented X3.? No acute distress.? Head: Normocephalic, atraumatic, no step-offs or deformities Eyes: Pupils equal, round and reactive to light.? Neck: Normal inspection.? Neck supple.? CVS: Normal heart rate and rhythm.? Pulses normal.? Respiratory: No respiratory distress.? Breath sounds normal.? Abdomen: Soft and nontender.? Skin: Skin warm and dry.? Normal skin color.? Normal skin turgor.? Extremities: No lower extremity edema.? No calf ttp. 5/5 strength to bilateral upper and lower extremities Back: No midline tenderness, no C-spine tenderness, full range of motion, + CVA tenderness bilaterally Neuro: Oriented X 3.? No motor deficit.? No sensory deficit. CN 2-12 intact Course Course Course Narrative: This is a rapid medical exam. Deferred additional HPI, ROS, PE to primary provi richar. 82 yo female with hx of dementia, R wrist fracture, GERD, HTN, back pain former back surgeries, frequent falls, recurrent UTIS here with her daughter with complaints of bad urinary infection bilateral flank pain, urinary frequency. Recently treated with keflex. Here with urine culture which shows >100,000 enterobacter cloacae complex with resistance to cefepime, ertapenum, gentamicin, impineum, tobramycin-resistant to all others (daughter has urine culture, not in computer). Will check labs, UA VSS Reevaluation(s) Reevaluation #1: Patient's CBC within patient's baseline with a normocytic anemia. Chemistry unremarkable. Normal lactic acid. CT of the abdomen and pelvis without any acute abnormality within the kidneys or collecting system. Time: 20:31 Reevaluation #2: Patient was finally able to give us a urine, UA appears infected. Based off patient's sensitivity report that daughter provided she is susceptible to cefepime, will give 1 g of cefepime at this time. Plan is to admit to the hospitalist she did fail p.o. antibiotics Time: 00:22 Medications Administered Discontinued Medications Generic Name Dose Route Start Last Admin Trade Name Freq PRN Reason Stop Dose Admin Sodium Chloride 500 mls @ 500 mls/hr 11/19/22 22:00 11/19/22 22:17 Ns IV 11/19/22 22:59 500 mls/hr .Q1H SUJIT Administration Iohexol 100 ml 11/19/22 19:34 11/19/22 19:34 Iohexol 350 Mg/Ml 100 Ml Infus..Btl IV 11/19/22 19:35 85 ml ONCE ONE Administration Morphine Sulfate 2 mg 11/19/22 21:45 11/19/22 22:15 Morphine Sulfate 2 Mg/Ml Cartridge IVPUSH 11/19/22 21:46 2 mg ONCE ONE Administration Protocol Medical Decision Making Medical Decision Making [facility] Narrative: 82 year old female recently treated for a UTI w/ kelfex, presenting with worsening UTI and b/l flank pain PE- + b/l flank pain. VSS concerns for recurrent UTI, pylonephritis, kidney stones. Will rule out electrolyte abnormalities. Plan- labs, urine, imaging Differential Diagnosis Differential Diagnoses: The differential diagnosis associated with the presentation includes concerns for recurrent UTI, pylonephritis, kidney stones. Will rule out electrolyte abnormalities. Admission/Observation Consideration of admission/observation: Escalation of care including admission/observation considered Consult Healthcare Provider Management of the patient was discussed with: Hospitalist Lab Data [facility] Lab Attestation statement: I reviewed the patient's lab results. 11/19/22 18:00 11/19/22 18:00 Labs: Lab Results 11/19/22 11/19/22 11/19/22 Range/Units 17:59 18:00 18:00 WBC 6.0 (4.8-10.8) X10*3/uL RBC 3.35 L (4.20-5.50) X10*6/uL Hgb 10.5 L (12.0-16.0) g/dl Hct 32.1 L (37.0-47.0) % MCV 95.8 (80.0-98.0) fL MCH 31.3 (27.0-33.0) pg MCHC 32.7 (31.0-35.0) g/dl RDW 13.3 (11.0-16.0) % Plt Count 217 (160-400) X10*3/uL MPV 9.3 L (9.4-12.3) fL Immature Gran % (Auto) 1.0 H (0.0-0.4) % Neut % (Auto) 56.1 (45-73) % Lymph % (Auto) 30.2 (20-40) % [place] % (Auto) 9.1 (2-11) % Eos % (Auto) 2.8 (0-4) % Baso % (Auto) 0.8 (0-2) % Lymph # (Auto) 1.8 (1.2-4.9) X10*3/uL [place] # (Auto) 0.6 (0.1-1.2) X10*3/uL Eos # (Auto) 0.2 (0.0-0.4) X10*3/uL Baso # (Auto) 0.1 (0.0-0.2) X10*3/uL Abs Immat Gran (auto) 0.06 H (0.00-0.03) X10*3/uL Absolute Neuts (auto) 3.4 (2.0-8.3) x10*3/uL Absolute Nucleated RBC 0.000 (0.0-0.012) X10*3/uL Nucleated RBC % (auto) 0.0 (0.0-0.2) /100WBC Sodium 137 (135-145) mmol/L Potassium 4.1 (3.3-5.1) mmol/L Chloride 104 (96-108) mmol/L Carbon Dioxide 25 (22-29) mmol/L Anion Gap 12 (12-20) BUN 15 (9-16) mg/dL Creatinine 0.72 (0.5-1.4) mg/dL Estim Creat Clear Calc 55.1 Estimated GFR > 60 Random Glucose 153 H (60-115) mg/dL Lactic Acid 1.7 (0.5-2.0) mmol/L Calcium 8.7 (8.4-10.2) mg/dL Total Bilirubin 0.2 (0.0-1.0) mg/dL Direct Bilirubin < 0.2 (0.0-0.5) mg/dL AST 20 (5-31) U/L ALT 13 (0-31) U/L Alkaline Phosphatase 109 (39-117) U/L Total Protein 6.1 L (6.5-8.0) g/dL Albumin 3.8 (3.5-5.0) g/dL Urine Color Urine Appearance Urine pH (5.0-9.0) Ur Specific [place] (1.005-1.025) Urine Protein (Neg-Trace) mg/dL Urine Glucose (UA) (Negative) mg/dL Urine Ketones (Negative) mg/dL Urine Blood (Negative) Urine Nitrite (Negative) Ur Leukocyte Esterase (Negative) 11/20/22 Range/Units 00:03 WBC (4.8-10.8) X10*3/uL RBC (4.20-5.50) X10*6/uL Hgb (12.0-16.0) g/dl Hct (37.0-47.0) % MCV (80.0-98.0) fL MCH (27.0-33.0) pg MCHC (31.0-35.0) g/dl RDW (11.0-16.0) % Plt Count (160-400) X10*3/uL MPV (9.4-12.3) fL Immature Gran % (Auto) (0.0-0.4) % Neut % (Auto) (45-73) % Lymph % (Auto) (20-40) % [place] % (Auto) (2-11) % Eos % (Auto) (0-4) % Baso % (Auto) (0-2) % Lymph # (Auto) (1.2-4.9) X10*3/uL [place] # (Auto) (0.1-1.2) X10*3/uL Eos # (Auto) (0.0-0.4) X10*3/uL Baso # (Auto) (0.0-0.2) X10*3/uL Abs Immat Gran (auto) (0.00-0.03) X10*3/uL Absolute Neuts (auto) (2.0-8.3) x10*3/uL Absolute Nucleated RBC (0.0-0.012) X10*3/uL Nucleated RBC % (auto) (0.0-0.2) /100WBC Sodium (135-145) mmol/L Potassium (3.3-5.1) mmol/L Chloride (96-108) mmol/L Carbon Dioxide (22-29) mmol/L Anion Gap (12-20) BUN (9-16) mg/dL Creatinine (0.5-1.4) mg/dL Estim Creat Clear Calc Estimated GFR Random Glucose (60-115) mg/dL Lactic Acid (0.5-2.0) mmol/L Calcium (8.4-10.2) mg/dL Total Bilirubin (0.0-1.0) mg/dL Direct Bilirubin (0.0-0.5) mg/dL AST (5-31) U/L ALT (0-31) U/L Alkaline Phosphatase (39-117) U/L Total Protein (6.5-8.0) g/dL Albumin (3.5-5.0) g/dL Urine Color Yellow Urine Appearance Clear Urine pH 5.5 (5.0-9.0) Ur Specific [place] >= 1.030 H (1.005-1.025) Urine Protein Negative (Neg-Trace) mg/dL Urine Glucose (UA) Negative (Negative) mg/dL Urine Ketones Negative (Negative) mg/dL Urine Blood Trace H (Negative) Urine Nitrite Positive H (Negative) Ur Leukocyte Esterase Negative (Negative) Independent Interpretation I performed an independent interpretation of an: CT Scan Radiology Impression Discussion of test interpretation with radiology: I have reviewed the radiologist's reading. External Record Review External record reviewed: Inpatient record, Office record, Outpatient record, Prior outpatient labs, Prior outpatient radiology, Primary care record and Outside ED record Core Measures AMI core measures followed: Yes Measure exclusions: not indicated Critical Care Time Critical Care Time Critical Care Time: Yes Total Critical Care Time: 35 Attestation: I attest to this time spent taking care of the patient, obtaining history, physical, reviewing labs, imaging, speaking to my attending, Discharge Plan Discharge Clinical Impression: Bilateral flank pain, Acute UTI Patient Disposition: Admitted As Inpatient Prescriptions: No Action multivitamin Tablet 1 tab PO DAILY sennosides [senna] 8.6 mg Tablet 17.2 mg PO DAILY PRN (Reason: Constipation) ascorbic acid (vitamin C) [Vitamin C] 500 mg Tablet 500 mg PO DAILY docusate sodium 100 mg Capsule 100 mg PO BID omeprazole 20 mg capsule,delayed release(DR/EC) 20 mg PO DAILY gabapentin 100 mg capsule 100 mg PO TID metoprolol succinate 25 mg tablet extended release 24 hr 25 mg PO DAILY quetiapine 50 mg tablet 50 mg PO BEDTIME cholecalciferol (vitamin D3) 25 mcg (1,000 unit) Tablet 25 mcg PO DAILY Myrbetriq 50 mg tablet extended release 24 hr 50 mg PO DAILY oxycodone 5 mg tablet 5 mg PO Q6H PRN (Reason: Pain) duloxetine 60 mg capsule,delayed release(DR/EC) 60 mg PO DAILY nitrofurantoin macrocrystal [Macrodantin] 50 mg Capsule 50 mg PO BEDTIME Rx Instructions: must administer with a meal/food ferrous sulfate 325 mg (65 mg iron) Tablet 325 mg PO DAILY oxycodone 5 mg Tablet 5 mg PO DAILY@1900 cephalexin 500 mg capsule 500 mg PO BID Qty: 14 0RF
[2022-11-19 17:20] VITALS: BP 163/52; PULSE 85; RESP 16; TEMP 36.6; O2SAT 96; BMI 22.6
[2022-11-19 17:43] VITALS: BP 144/66; PULSE 76; RESP 16; O2SAT 98
[2022-11-19 18:05] LABS: MANUAL DIFF FLAG NO
[2022-11-19 18:17] LABS: Lactic Acid 1.7 mmol/L (0.5-2.0)
[2022-11-19 18:25] LABS: Alanine Aminotransferase 13 U/L (0-31); Albumin Level 3.8 g/dL (3.5-5.0); Alkaline Phosphatase 109 U/L (39-117); Anion Gap 12 (12-20); Aspartate Amino Transferase 20 U/L (5-31); Bilirubin Direct < 0.2 mg/dL (0.0-0.5); Bilirubin Total 0.2 mg/dL (0.0-1.0); Blood Urea Nitrogen 15 mg/dL (9-16); Calcium 8.7 mg/dL (8.4-10.2); Carbon Dioxide 25 mmol/L (22-29); Chloride 104 mmol/L (96-108); Creatinine Clr Calc Pharmacy 55.1; Estimated Glomerular Filt Rate > 60; Glucose Random 153 mg/dL (60-115); Potassium 4.1 mmol/L (3.3-5.1); Sodium 137 mmol/L (135-145); Total Protein 6.1 g/dL (6.5-8.0)
[2022-11-19 18:28] LABS: Basophils Absolute Auto 0.1 X10*3/uL (0.0-0.2); Basophils Percent Auto 0.8 % (0-2); Eosinophils Absolute Auto 0.2 X10*3/uL (0.0-0.4); Eosinophils Percent Auto 2.8 % (0-4); Hematocrit 32.1 % (37.0-47.0); Hemoglobin 10.5 g/dl (12.0-16.0); Imm Gran Abs Auto 0.06 X10*3/uL (0.00-0.03); Lymphocytes Absolute Auto 1.8 X10*3/uL (1.2-4.9); Lymphocytes Percent Auto 30.2 % (20-40); Mean Corpuscular HGB Conc 32.7 g/dl (31.0-35.0); Mean Corpuscular Hemoglobin 31.3 pg (27.0-33.0); Mean Corpuscular Volume 95.8 fL (80.0-98.0); Mean Platelet Volume 9.3 fL (9.4-12.3); Monocytes Absolute Auto 0.6 X10*3/uL (0.1-1.2); Monocytes Percent Auto 9.1 % (2-11); Neutrophils Absolute Auto 3.4 x10*3/uL (2.0-8.3); Neutrophils Percent Auto 56.1 % (45-73); Platelet Count 217 X10*3/uL (160-400); Red Blood Count 3.35 X10*6/uL (4.20-5.50); Red Cell Distribution Width 13.3 % (11.0-16.0)
[2022-11-19 18:53] VITALS: BP 147/67; PULSE 85; RESP 16; O2SAT 97
[2022-11-19] MEDS: iohexoL 350 MG/ML 100 ML INFUS..BTL IV (19:34)
[2022-11-19 20:01] VITALS: BP 147/66; PULSE 81; RESP 14; TEMP 36.7; O2SAT 95
--- NOTE | 2022-11-19 20:07 | PC.NURSE ---
Pt ca&ox3 but forgetful at times per daughter who is at bedside pt has dementia. Pt reports 9/10 bilateral flank pain. Vitals are stable. No signs of distress. Pt denies chest pain and sob. Will continue to monitor.
[2022-11-19 21:45] VITALS: BP 141/59; PULSE 83; RESP 16; TEMP 36.8; O2SAT 93
[2022-11-19 22:15] VITALS: RESP 18
[2022-11-19] MEDS: Morphine Sulfate 2 MG/ML CARTRIDGE IVPUSH (22:15)
[2022-11-19] MEDS: 0.9 % Sodium Chloride 500 ML IV (22:17)
[2022-11-20] VITALS (7 sets, daily range): BP systolic 126–170; BP diastolic 63–83; PULSE 67–71; RESP 16–20; TEMP 36.1–37.1; O2SAT 94–100
[2022-11-20 00:13] LABS: Appearance Urine Clear; Color Urine Yellow; Glucose Urine UA Negative (Negative); Leukocyte Esterase Urine Negative (Negative); Nitrite Urine Positive (Negative); PH 5.5 (5.0-9.0); Specific Gravity - Urine >= 1.030 (1.005-1.025); UMIC TRIGGER UACC YES; Urine Blood Trace (Negative); Urine Ketones Negative (Negative); Urine Protein Negative (Neg-Trace)
[2022-11-20 00:21] LABS: Bacteria Urine 4+ (None Seen); Hyaline Casts Urine 0-2 /LPF (0-2); RBC Urine 0-2 /HPF (0-2); Squamous Epithelial Cell Urine 0-2 /HPF (0-2); UACC Culture Trigger YES; WBC Urine 0-5 /HPF (0-5)
--- NOTE | 2022-11-20 00:42 | PM.IMHP ---
History of Present Illness Date of Service: 11/20/22 Chief Complaint: UTI 82-year-old female with past medical history of Alzheimer's disease, chronic back pain, HTN, Recurrent UTI, presents to the hospital with findings of UTI multi drug resistant. patient is oriented to self, not place or time, able to answer questions appropriately. History is obtained mostly from ED provider, who obtain the information from patient's daughter who is no longer at bedside. Daughter reports the patient has worsening UTI infection, she has had subjective fevers, chills, bilateral flank pain, patient herself reports frequency, urgency, denies dysuria. Patient's daughter reported that she had been diagnosed with a UTI and treated with Keflex but cultures came back which showed enterobacter cloacae poly resistant to Bactrim, Augmentin, cefazolin, ceftazidime, ciprofloxacin, ceftriaxone, macro bed, the only susceptibility was to cefepime and ertapenem. given persistent symptoms, and positive UA patient will be admitted for IV antibiotics. Patient denies any chest pain, no shortness of breath, no abdominal pain nausea or vomiting, no diarrhea constipation, no lower extremity edema. No numbness weakness or tingling. Vitals on arrival stable with no significant abnormality labs are significant for WBC of 6, hemoglobin of 10.5, hematocrit 32.1, UA remains positive for nitrites and WBC as well as bacteria abdomen pelvic CT shows no acute abnormality within the kidneys or collecting systems, no obstructive changes or perinephric stranding patient started on IV antibiotics based on sensitivity and will be admitted for further management and monitoring Review of Systems Review of Systems: Yes all other systems are reviewed and are negative [facility] Medical History Alzheimer disease Chronic back pain Dementia HTN (hypertension) Recurrent UTI Squamous cell skin cancer Urge incontinence Family History Mother Breast cancer Surgical History H/O Spinal surgery H/O: hysterectomy Social History Household Members: Family Housing: House Do you presently have visiting nurse or other home services: No Alcohol intake: never Patient Tobacco Use Status: Never used Tobacco Smoked in Last 30 Days: No Second Hand Smoke Exposure: No Have you been hit, kicked, punched, or otherwise hurt by someone within the past year? If so, by whom?: No Is there a partner from a previous relationship who is making you feel unsafe now?: No Are you made to feel afraid or neglected: No Advance Directives: Yes Advance Directives on File: Yes Advance Directives Date on File: 06/01/22 Do you have thoughts of harming others: None Do you have a plan to hurt others: No Plan Nutrition Risks: No Nutritional Risk Patient : No service: No Current occupational status: retired [employer] Allergies Allergy/AdvReac Type Severity Reaction Status Date / Time No Known Allergies Allergy Verified 11/19/22 17:19 Active Medications: Current Medications Acetaminophen (Acetaminophen 325 Mg Tablet) 650 mg PO Q6H PRN PRN Reason: Pain, Mild (Pain Scale 1-3) Docusate Sodium (Docusate Sodium 100 Mg Capsule) 100 mg PO DAILY PRN PRN Reason: Constipation Enoxaparin Sodium (Enoxaparin Sodium 40 Mg/0.4 Ml Syringe) 40 mg SUBCUT Q24H [facility] Sodium Chloride (Ns) 1,000 mls @ 999 mls/hr IV .Q1H1M SUJIT Stop: 11/20/22 01:30 Cefepime HCl 1 gm/ Sodium (Chloride) 50 mls @ 100 mls/hr IV ONCE ONE Stop: 11/20/22 00:49 Cefepime HCl 2 gm/ Sodium (Chloride) 50 mls @ 100 mls/hr IV Q8H [facility] Ondansetron HCl (Ondansetron Hcl 4 Mg/2 Ml Vial) 4 mg IVPUSH Q8H PRN PRN Reason: Nausea and Vomiting Pharmacy Consult (Consult Rx Perform Med Rec) 1 each MISCELLANE ONCE PRN PRN Reason: Consult order Sodium Chloride (0.9 % Sodium Chloride Flush 3 Ml Syringe) 3 ml IVFLUSH QSHIFT [facility] Home Medications Medication Instructions Recorded Confirmed Last Taken Type cholecalciferol (vitamin D3) 25 25 mcg PO DAILY 08/21/22 11/20/22 Unknown History mcg (1,000 unit) tablet docusate sodium 100 mg capsule 100 mg PO BID 08/21/22 11/20/22 Unknown History multivitamin 1 tab PO DAILY 08/21/22 11/20/22 Unknown History ferrous sulfate 325 mg (65 mg 325 mg PO DAILY 10/09/22 11/20/22 Unknown History iron) tablet duloxetine 60 mg capsule,delayed 60 mg PO DAILY 11/20/22 11/20/22 Unknown History release gabapentin 100 mg capsule 100 mg PO TID 11/20/22 11/20/22 Unknown History metoprolol succinate 25 mg 25 mg PO DAILY 11/20/22 11/20/22 Unknown History tablet,extended release 24 hr mirabegron 50 mg tablet,extended 50 mg PO DAILY 11/20/22 11/20/22 Unknown History release 24 hr (Myrbetriq) omeprazole 20 mg capsule,delayed 20 mg PO DAILY 11/20/22 11/20/22 Unknown History release quetiapine 50 mg tablet 50 mg PO BEDTIME 11/20/22 11/20/22 Unknown History Physical Exam Vital Signs and Narrative: Vital Signs: Last Vital Signs Temp 98.3 F 11/19/22 21:45 Pulse 83 11/19/22 21:45 Resp 18 11/19/22 22:15 BP 141/59 H 11/19/22 21:45 Pulse Ox 93 11/19/22 21:45 O2 Del Method Room Air 11/19/22 21:45 BMI result Body Mass Index 22.6 Const: Other: pleasantly confused, she is oriented to self, not place or time General: cooperative and no acute distress Eyes: General: appearance normal, both eyes and all related structures Pupils: Equal, round and reactive pupils present Resp: Effort & Inspection: normal respiratory effort Auscultation: clear to auscultation bilaterally Cardio: Rate: regular rate Rhythm: regular rhythm GI: Palpation (GI): Soft to palpation Auscultation: normal bowel sounds Skin: General skin exam: no rashes or lesions noted Neuro: Cranial nerves: Yes Equal, round and reactive pupils present Cognition (Neuro): normal cognition Extrem: General: Yes normal to inspection and Yes no pedal edema Results Labs 11/19/22 18:00 11/19/22 18:00 Labs: Laboratory Results - last 24 hr 11/19/22 11/19/22 11/19/22 17:59 18:00 18:00 MCV 95.8 MCH 31.3 MCHC 32.7 RDW 13.3 Plt Count 217 MPV 9.3 L Immature Gran % (Auto) 1.0 H Neut % (Auto) 56.1 Lymph % (Auto) 30.2 [place] % (Auto) 9.1 Eos % (Auto) 2.8 Baso % (Auto) 0.8 Lymph # (Auto) 1.8 [place] # (Auto) 0.6 Eos # (Auto) 0.2 Baso # (Auto) 0.1 Abs Immat Gran (auto) 0.06 H Absolute Neuts (auto) 3.4 Absolute Nucleated RBC 0.000 Nucleated RBC % (auto) 0.0 Anion Gap 12 Estim Creat Clear Calc 55.1 Estimated GFR > 60 Random Glucose 153 H Lactic Acid 1.7 Calcium 8.7 Total Bilirubin 0.2 Direct Bilirubin < 0.2 AST 20 ALT 13 Alkaline Phosphatase 109 Total Protein 6.1 L Albumin 3.8 Urine Color Urine Appearance Urine pH Ur Specific [place] Urine Protein Urine Glucose (UA) Urine Ketones Urine Blood Urine Nitrite Ur Leukocyte Esterase Urine RBC Urine WBC Ur Squamous Epith Cells Urine Bacteria Hyaline Casts 11/20/22 00:03 MCV MCH MCHC RDW Plt Count MPV Immature Gran % (Auto) Neut % (Auto) Lymph % (Auto) [place] % (Auto) Eos % (Auto) Baso % (Auto) Lymph # (Auto) [place] # (Auto) Eos # (Auto) Baso # (Auto) Abs Immat Gran (auto) Absolute Neuts (auto) Absolute Nucleated RBC Nucleated RBC % (auto) Anion Gap Estim Creat Clear Calc Estimated GFR Random Glucose Lactic Acid Calcium Total Bilirubin Direct Bilirubin AST ALT Alkaline Phosphatase Total Protein Albumin Urine Color Yellow Urine Appearance Clear Urine pH 5.5 Ur Specific [place] >= 1.030 H Urine Protein Negative Urine Glucose (UA) Negative Urine Ketones Negative Urine Blood Trace H Urine Nitrite Positive H Ur Leukocyte Esterase Negative Urine RBC 0-2 Urine WBC 0-5 Ur Squamous Epith Cells 0-2 Urine Bacteria 4+ Hyaline Casts 0-2 Imaging Radiologist's Impressions: Impressions Abdomen/Pelvis CT 11/19/22 19:58 IMPRESSION: Although degraded by beam hardening artifact from spinal hardware, I do not appreciate any acute abnormality within the kidneys or collecting systems. No obstructive changes or perinephric stranding. Bladder is decompressed and grossly unremarkable. Chronic appearing changes as described above Assessment and Plan (1) Acute UTI: Status: Acute (2) Infection caused by Enterobacter cloacae: Status: Acute (3) Failure of outpatient treatment: Status: Acute Plan 82 yo w pmhx of recurrent UTI comes in with UTI resistant to PO medications # enterobacter cloacae - resistant to most antibiotics - failed keflex - remains symptomatic - UA postive - will start on abx based on culture done op - follow new cultures #depression - continue home meds dvt ppx: Lovenox Time Spent With Patient Time: Total time managing care of this patient today ____ minutes. Quality Stroke Does the patient have a stroke diagnosis?: No VTE Prior VTE?: No VTE Risk Level:: Medical - moderate - high VTE Device Contraindication: Treatment Not Indicated VTE Drug Contraindication: N/A - Med Ordered
[2022-11-20] MEDS: Enoxaparin Sodium 40 MG/0.4 ML SYRINGE SUBCUT (01:16)
[2022-11-20] MEDS: cefEPime HCl 2 GM in 0.9 % Sodium Chloride 50 ML IV ×3 (01:16→17:22)
[2022-11-20] MEDS: 0.9 % Sodium Chloride 1,000 ML 999 ML IV (01:17)
--- NOTE | 2022-11-20 02:50 | PC.NURSE ---
Patient accidentally pulled out IV line out. Patient while trying trying to reposition herself in bed. New 20 G IV line inserted in R forearm.
--- NOTE | 2022-11-20 02:57 | PC.NURSE ---
Nurse to nurse report given to Deepak IMC RN. Patient to be transported to [facility] by ROBERTO Morrison.
[2022-11-20 06:00] LABS: MANUAL DIFF FLAG NO
[2022-11-20 06:31] LABS: Basophils Absolute Auto 0.1 X10*3/uL (0.0-0.2); Basophils Percent Auto 0.9 % (0-2); Eosinophils Absolute Auto 0.2 X10*3/uL (0.0-0.4); Eosinophils Percent Auto 2.7 % (0-4); Hematocrit 35.7 % (37.0-47.0); Hemoglobin 11.4 g/dl (12.0-16.0); Imm Gran Abs Auto 0.02 X10*3/uL (0.00-0.03); Imm Gran Pct Auto 0.4 % (0.0-0.4); Lymphocytes Absolute Auto 1.7 X10*3/uL (1.2-4.9); Lymphocytes Percent Auto 30.2 % (20-40); Mean Corpuscular HGB Conc 31.9 g/dl (31.0-35.0); Mean Corpuscular Hemoglobin 30.5 pg (27.0-33.0); Mean Corpuscular Volume 95.5 fL (80.0-98.0); Mean Platelet Volume 9.2 fL (9.4-12.3); Monocytes Absolute Auto 0.6 X10*3/uL (0.1-1.2); Neutrophils Absolute Auto 3.1 x10*3/uL (2.0-8.3); Neutrophils Percent Auto 55.8 % (45-73); Platelet Count 208 X10*3/uL (160-400); Red Blood Count 3.74 X10*6/uL (4.20-5.50); Red Cell Distribution Width 13.5 % (11.0-16.0); White Blood Count 5.5 X10*3/uL (4.8-10.8)
[2022-11-20 06:48] LABS: Anion Gap 14 (12-20); Blood Urea Nitrogen 11 mg/dL (9-16); Calcium 8.6 mg/dL (8.4-10.2); Carbon Dioxide 25 mmol/L (22-29); Chloride 104 mmol/L (96-108); Estimated Glomerular Filt Rate > 60; Glucose Random 91 mg/dL (60-115); Sodium 139 mmol/L (135-145)
--- NOTE | 2022-11-20 07:53 | PHA.MEDREC ---
Pharmacy Consult ? Medication Reconciliation Pharmacy has completed the medication reconciliation. MED REC CHECKED FROM OVERNIGHT
[2022-11-20] MEDS: Ferrous Sulfate 324 MG TABLET.DR PO (08:47)
[2022-11-20] MEDS: Mirabegron 50 MG TAB.ER.24H PO (08:47)
[2022-11-20] MEDS: Docusate Sodium 100 MG CAPSULE PO ×2 (08:47→22:30)
[2022-11-20] MEDS: Omeprazole 20 MG CAPSULE.DR PO (08:47)
[2022-11-20] MEDS: Metoprolol Succinate ER 25 MG TAB.ER.24H PO (08:47)
[2022-11-20] MEDS: Multivitamin TABLET 1 TAB PO (08:47)
[2022-11-20] MEDS: 0.9 % Sodium Chloride Flush 3 ML SYRINGE IVFLUSH ×3 (08:48→22:33)
[2022-11-20] MEDS: Cholecalciferol (Vitamin D3) 25 MCG TABLET PO (08:48)
[2022-11-20] MEDS: Gabapentin 100 MG CAPSULE PO ×3 (08:48→22:30)
[2022-11-20] MEDS: DULoxetine HCl 60 MG CAPSULE.DR PO (08:52)
--- NOTE | 2022-11-20 09:03 | MHC.CM.PN ---
IMM DELIVERED, EXPLAINED TO HCP/DAUGHTER EL. WHITE COPY TO BE MAILED, YELLOW COPY TO CHART. PT LIVES AT [facility]. USES [facility] FOR MOBILITY. WAS JUST DC FROM [facility] BUT DAUGHTER IS AGREEABLE FOR A RETURN REFERRAL SHOULD THIS BE RECOMMENDED. DAUGHTER IS ABLE TO ASSIST WITH IV RX IF NEEDED IF ORDERED ONCE/TWICE DAILY AT MOST. +HCP ON FILE + COVID VAX X 4 PCP ALPESH SHAH DP: RETURN TO [facility] WITH [facility]/P[facility]IBLE [facility] WILL BE NEEDED. FAMILY WILL TRANSPORT
--- NOTE | 2022-11-20 09:34 | HO.PM.IMPN ---
Subjective Subjective Date of Service: 11/20/22 Interval History: back pain improving Physical Exam Vital Signs: Vital Signs: Last Vital Signs Temp 97.2 F 11/20/22 07:03 Pulse 68 11/20/22 07:03 Resp 20 11/20/22 07:03 BP 126/83 11/20/22 07:03 Pulse Ox 100 11/20/22 07:03 O2 Del Method Room Air 11/20/22 07:03 BMI result Body Mass Index 22.6 Const: General: cooperative Nutritional Appearance: average body habitus Orientation/consciousness: oriented to place HEENT: Head: Yes normal to inspection General nose exam: Normal external nose present Face and sinus: Yes normal facial exam Mouth: Normal oral and palatal mucosa present Throat: Yes posterior oropharynx normal Neck: Neck: Yes normal visual inspection and Yes full ROM Chest: Chest palpation & inspection: normal inspection of the chest Resp: Effort & Inspection: normal respiratory effort and able to speak in complete sentences Auscultation: clear to auscultation bilaterally Cardio: Jugular venous distension: no JVD Rate: regular rate Rhythm: regular rhythm GI: Inspection: Yes normal to inspection Palpation (GI): Soft to palpation Auscultation: normal bowel sounds Back/Spine/Pelvis: Thoracic/Lumbar Spine: thoracic and lumbar spine normal to inspection Pelvis: no pain with anterior-posterior compression Neuro: General: oriented to place Cranial nerves: Yes CN's II-XII intact bilaterally Cognition (Neuro): normal cognition Objective Data Active Medications Acetaminophen (Acetaminophen 325 Mg Tablet) 650 mg PO Q6H PRN PRN Reason: Pain, Mild (Pain Scale 1-3) Docusate Sodium (Docusate Sodium 100 Mg Capsule) 100 mg PO DAILY PRN PRN Reason: Constipation Docusate Sodium (Docusate Sodium 100 Mg Capsule) 100 mg PO BID COUNTS INCLUDE 234 BEDS AT THE [facility] Last Admin: 11/20/22 08:47 Dose: 100 mg Documented By: MONICA Duloxetine HCl (Duloxetine Hcl 60 Mg Capsule.) 60 mg PO DAILY COUNTS INCLUDE 234 BEDS AT THE [facility] Last Admin: 11/20/22 08:52 Dose: 60 mg Documented By: MONICA Enoxaparin Sodium (Enoxaparin Sodium 40 Mg/0.4 Ml Syringe) 40 mg SUBCUT Q24H COUNTS INCLUDE 234 BEDS AT THE [facility] Last Admin: 11/20/22 01:16 Dose: 40 mg Documented By: ADAM Ferrous Sulfate (Ferrous Sulfate 324 Mg Tablet.) 324 mg PO DAILY COUNTS INCLUDE 234 BEDS AT THE [facility] Last Admin: 11/20/22 08:47 Dose: 324 mg Documented By: MONICA Gabapentin (Gabapentin 100 Mg Capsule) 100 mg PO TID COUNTS INCLUDE 234 BEDS AT THE [facility] Last Admin: 11/20/22 08:48 Dose: 100 mg Documented By: MONICA Cefepime HCl 2 gm/ Sodium (Chloride) 50 mls @ 100 mls/hr IV Q8H COUNTS INCLUDE 234 BEDS AT THE [facility] Last Admin: 11/20/22 08:48 Dose: 100 mls/hr Documented By: MONICA Metoprolol Succinate (Metoprolol Succinate Er 25 Mg Tab.Er.24h) 25 mg PO DAILY COUNTS INCLUDE 234 BEDS AT THE [facility]; Protocol Last Admin: 11/20/22 08:47 Dose: 25 mg Documented By: MONICA Mirabegron (Mirabegron 50 Mg Tab.Er.24h) 50 mg PO DAILY COUNTS INCLUDE 234 BEDS AT THE [facility] Last Admin: 11/20/22 08:47 Dose: 50 mg Documented By: MONICA Multivitamins/Vitamin C (Multivitamin Tablet) 1 tab PO DAILY COUNTS INCLUDE 234 BEDS AT THE [facility] Last Admin: 11/20/22 08:47 Dose: 1 tab Documented By: MONICA Omeprazole (Omeprazole 20 Mg Capsule.) 20 mg PO DAILY COUNTS INCLUDE 234 BEDS AT THE [facility] Last Admin: 11/20/22 08:47 Dose: 20 mg Documented By: MONICA Ondansetron HCl (Ondansetron Hcl 4 Mg/2 Ml Vial) 4 mg IVPUSH Q8H PRN PRN Reason: Nausea and Vomiting Pharmacy Consult (Consult Rx Perform Med Rec) 1 each MISCELLANE ONCE PRN PRN Reason: Consult order Quetiapine Fumarate (Quetiapine Fumarate 50 Mg Tablet) 50 mg PO BEDTIME COUNTS INCLUDE 234 BEDS AT THE [facility] Sodium Chloride (0.9 % Sodium Chloride Flush 3 Ml Syringe) 3 ml IVFLUSH QSHIFT COUNTS INCLUDE 234 BEDS AT THE [facility] Last Admin: 11/20/22 08:48 Dose: 3 ml Documented By: MONICA Vitamin D (Cholecalciferol (Vitamin D3) 25 Mcg Tablet) 25 mcg PO DAILY COUNTS INCLUDE 234 BEDS AT THE [facility] Last Admin: 11/20/22 08:48 Dose: 25 mcg Documented By: MONICA Labs 11/20/22 05:45 11/20/22 05:45 Labs: Laboratory Results - last 24 hr 11/19/22 11/19/22 11/19/22 17:59 18:00 18:00 MCV 95.8 MCH 31.3 MCHC 32.7 RDW 13.3 Plt Count 217 MPV 9.3 L Immature Gran % (Auto) 1.0 H Neut % (Auto) 56.1 Lymph % (Auto) 30.2 [place] % (Auto) 9.1 Eos % (Auto) 2.8 Baso % (Auto) 0.8 Lymph # (Auto) 1.8 [place] # (Auto) 0.6 Eos # (Auto) 0.2 Baso # (Auto) 0.1 Abs Immat Gran (auto) 0.06 H Absolute Neuts (auto) 3.4 Absolute Nucleated RBC 0.000 Nucleated RBC % (auto) 0.0 Anion Gap 12 Estim Creat Clear Calc 55.1 Estimated GFR > 60 Random Glucose 153 H Lactic Acid 1.7 Calcium 8.7 Total Bilirubin 0.2 Direct Bilirubin < 0.2 AST 20 ALT 13 Alkaline Phosphatase 109 Total Protein 6.1 L Albumin 3.8 Urine Color Urine Appearance Urine pH Ur Specific [place] Urine Protein Urine Glucose (UA) Urine Ketones Urine Blood Urine Nitrite Ur Leukocyte Esterase Urine RBC Urine WBC Ur Squamous Epith Cells Urine Bacteria Hyaline Casts 11/20/22 11/20/22 11/20/22 00:03 05:45 05:45 MCV 95.5 MCH 30.5 MCHC 31.9 RDW 13.5 Plt Count 208 MPV 9.2 L Immature Gran % (Auto) 0.4 Neut % (Auto) 55.8 Lymph % (Auto) 30.2 [place] % (Auto) 10.0 Eos % (Auto) 2.7 Baso % (Auto) 0.9 Lymph # (Auto) 1.7 [place] # (Auto) 0.6 Eos # (Auto) 0.2 Baso # (Auto) 0.1 Abs Immat Gran (auto) 0.02 Absolute Neuts (auto) 3.1 Absolute Nucleated RBC 0.000 Nucleated RBC % (auto) 0.0 Anion Gap 14 Estim Creat Clear Calc 64.0 Estimated GFR > 60 Random Glucose 91 Lactic Acid Calcium 8.6 Total Bilirubin Direct Bilirubin AST ALT Alkaline Phosphatase Total Protein Albumin Urine Color Yellow Urine Appearance Clear Urine pH 5.5 Ur Specific [place] >= 1.030 H Urine Protein Negative Urine Glucose (UA) Negative Urine Ketones Negative Urine Blood Trace H Urine Nitrite Positive H Ur Leukocyte Esterase Negative Urine RBC 0-2 Urine WBC 0-5 Ur Squamous Epith Cells 0-2 Urine Bacteria 4+ Hyaline Casts 0-2 Assessment and Plan (1) Failure of outpatient treatment: Status: Acute Plan 82 yo w pmhx of recurrent UTI, alzheimers dementia, comes in with UTI resistant to PO medications enterobacter cloacae UTI resistant to most antibiotics cefepime follow new cultures ID eval depression cymbalta alzheimers dementia stable dvt ppx: Lovenox full code reason for continued hospitalization:awaiting repeat cultrues, need iv abx for coverage of resistent organism Time Spent With Patient Time: Total time managing care of this patient today ____ minutes. Quality Stroke Does the patient have a stroke diagnosis?: No VTE Prior VTE?: No VTE Risk Level:: Medical - moderate - high VTE Device Contraindication: Treatment Not Indicated VTE Drug Contraindication: N/A - Med Ordered
--- NOTE | 2022-11-20 16:01 | W.PM.IDCN ---
History of Present Illness Data of Consult Service Date: 11/20/22 Requesting physician: Juan Carlos Mack Primary Care Provider: LUIS A Barry Reason for consult: urinary tract infection concerns She presents to ER brought in by daughter who says patient had severe abdominal pain. Patient denies any pain now but is poor historian. She has no fever or chills or leukocytosis. Her daughter brings a culture from senior care that shows Enterobacter cloacae with multiple resistance. She takes 50 mg Macrodantin nightly. She has been on Keflex last week and prior Levaquin. Review of Systems Review of Systems: Yes Unobtainable due to mental status PMFSH Past Medical History Medical History Alzheimer disease Chronic back pain Dementia HTN (hypertension) Recurrent UTI Squamous cell skin cancer Urge incontinence Family History Family History Mother Breast cancer Family history: reviewed and not pertinent Surgical History Surgical History H/O Spinal surgery H/O: hysterectomy Social History Social History Household Members: Family Housing: House Do you presently have visiting nurse or other home services: No Alcohol intake: never Patient Tobacco Use Status: Never used Tobacco Smoked in Last 30 Days: No Second Hand Smoke Exposure: No Currently Displaying Signs/Symptoms of Drug Intoxication Withdrawal: No Have you been hit, kicked, punched, or otherwise hurt by someone within the past year? If so, by whom?: No Is there a partner from a previous relationship who is making you feel unsafe now?: No Are you made to feel afraid or neglected: No Advance Directives: Yes Advance Directives on File: Yes Advance Directives Date on File: 06/01/22 Do you have thoughts of harming others: None Do you have a plan to hurt others: No Plan Nutrition Risks: No Nutritional Risk Patient : No service: No Current occupational status: retired Meds Allergies Allergy/AdvReac Type Severity Reaction Status Date / Time No Known Allergies Allergy Verified 11/19/22 17:19 Active Medications: Current Medications Acetaminophen (Acetaminophen 325 Mg Tablet) 650 mg PO Q6H PRN PRN Reason: Pain, Mild (Pain Scale 1-3) Docusate Sodium (Docusate Sodium 100 Mg Capsule) 100 mg PO DAILY PRN PRN Reason: Constipation Docusate Sodium (Docusate Sodium 100 Mg Capsule) 100 mg PO BID [facility] Last Admin: 11/20/22 08:47 Dose: 100 mg Duloxetine HCl (Duloxetine Hcl 60 Mg Capsule.) 60 mg PO DAILY [facility] Last Admin: 11/20/22 08:52 Dose: 60 mg Enoxaparin Sodium (Enoxaparin Sodium 40 Mg/0.4 Ml Syringe) 40 mg SUBCUT Q24H [facility] Last Admin: 11/20/22 01:16 Dose: 40 mg Ferrous Sulfate (Ferrous Sulfate 324 Mg Tablet.) 324 mg PO DAILY [facility] Last Admin: 11/20/22 08:47 Dose: 324 mg Gabapentin (Gabapentin 100 Mg Capsule) 100 mg PO TID [facility] Last Admin: 11/20/22 14:45 Dose: 100 mg Cefepime HCl 2 gm/ Sodium (Chloride) 50 mls @ 100 mls/hr IV Q8H [facility] Last Infusion: 11/20/22 09:45 Dose: Infused Metoprolol Succinate (Metoprolol Succinate Er 25 Mg Tab.Er.24h) 25 mg PO DAILY [facility]; Protocol Last Admin: 11/20/22 08:47 Dose: 25 mg Mirabegron (Mirabegron 50 Mg Tab.Er.24h) 50 mg PO DAILY [facility] Last Admin: 11/20/22 08:47 Dose: 50 mg Multivitamins/Vitamin C (Multivitamin Tablet) 1 tab PO DAILY [facility] Last Admin: 11/20/22 08:47 Dose: 1 tab Omeprazole (Omeprazole 20 Mg Capsule.) 20 mg PO DAILY [facility] Last Admin: 11/20/22 08:47 Dose: 20 mg Ondansetron HCl (Ondansetron Hcl 4 Mg/2 Ml Vial) 4 mg IVPUSH Q8H PRN PRN Reason: Nausea and Vomiting Pharmacy Consult (Consult Rx Perform Med Rec) 1 each MISCELLANE ONCE PRN PRN Reason: Consult order Quetiapine Fumarate (Quetiapine Fumarate 50 Mg Tablet) 50 mg PO BEDTIME [facility] Sodium Chloride (0.9 % Sodium Chloride Flush 3 Ml Syringe) 3 ml IVFLUSH QSHIFT [facility] Last Admin: 11/20/22 08:48 Dose: 3 ml Vitamin D (Cholecalciferol (Vitamin D3) 25 Mcg Tablet) 25 mcg PO DAILY [facility] Last Admin: 11/20/22 08:48 Dose: 25 mcg Home Medications Medication Instructions Recorded Confirmed Last Taken Type cholecalciferol (vitamin D3) 25 25 mcg PO DAILY 08/21/22 11/20/22 Unknown History mcg (1,000 unit) tablet docusate sodium 100 mg capsule 100 mg PO BID 08/21/22 11/20/22 Unknown History multivitamin 1 tab PO DAILY 08/21/22 11/20/22 Unknown History ferrous sulfate 325 mg (65 mg 325 mg PO DAILY 10/09/22 11/20/22 Unknown History iron) tablet duloxetine 60 mg capsule,delayed 60 mg PO DAILY 11/20/22 11/20/22 Unknown History release gabapentin 100 mg capsule 100 mg PO TID 11/20/22 11/20/22 Unknown History metoprolol succinate 25 mg 25 mg PO DAILY 11/20/22 11/20/22 Unknown History tablet,extended release 24 hr mirabegron 50 mg tablet,extended 50 mg PO DAILY 11/20/22 11/20/22 Unknown History release 24 hr (Myrbetriq) omeprazole 20 mg capsule,delayed 20 mg PO DAILY 11/20/22 11/20/22 Unknown History release quetiapine 50 mg tablet 50 mg PO BEDTIME 11/20/22 11/20/22 Unknown History Physical Exam Vital Signs: Vital Signs: Last Vital Signs Temp 97.0 F 11/20/22 15:53 Pulse 67 11/20/22 15:53 Resp 18 11/20/22 15:53 BP 158/78 H 11/20/22 15:53 Pulse Ox 94 11/20/22 15:53 O2 Del Method Room Air 11/20/22 15:53 BMI result Body Mass Index 22.6 Psych: Other: chronically confused Results Labs 11/20/22 05:45 11/20/22 05:45 Labs: Short CBC 11/19/22 11/20/22 Range/Units 18:00 05:45 WBC 6.0 5.5 (4.8-10.8) X10*3/uL Hgb 10.5 L 11.4 L (12.0-16.0) g/dl Hct 32.1 L 35.7 L (37.0-47.0) % Plt Count 217 208 (160-400) X10*3/uL BMP 11/19/22 11/20/22 18:00 05:45 Sodium 137 139 Potassium 4.1 4.0 Chloride 104 104 Carbon Dioxide 25 25 BUN 15 11 Creatinine 0.72 0.62 Calcium 8.7 8.6 Liver Function 11/19/22 Range/Units 18:00 Total Bilirubin 0.2 (0.0-1.0) mg/dL Direct Bilirubin < 0.2 (0.0-0.5) mg/dL AST 20 (5-31) U/L ALT 13 (0-31) U/L Alkaline Phosphatase 109 (39-117) U/L Albumin 3.8 (3.5-5.0) g/dL Urine 11/20/22 Range/Units 00:03 Urine Color Yellow Urine Appearance Clear Urine pH 5.5 (5.0-9.0) Ur Specific [place] >= 1.030 H (1.005-1.025) Urine Protein Negative (Neg-Trace) mg/dL Urine Glucose (UA) Negative (Negative) mg/dL Assessment and Plan (1) Failure of outpatient treatment: Status: Acute Daughter believes failed antibiotics with UTI but patient nontoxic and has no pain. She is probably colonized with Enterobacter not infected (2) Infection caused by Enterobacter cloacae: Status: Acute (3) Bilateral flank pain: Status: Acute (4) Acute UTI: Status: Acute Plan Continue Cefepime to which it is sensitive awaiting final culture If it is sensitive would treat for ten days and if urine culture negative stop antibiotics Time Spent With Patient Time: Total time managing care of this patient today ____ minutes.
[2022-11-20] MEDS: QUEtiapine Fumarate 50 MG TABLET PO (22:31)
[2022-11-21] VITALS (7 sets, daily range): BP systolic 140–169; BP diastolic 64–78; PULSE 67–86; RESP 18–20; TEMP 36.6–37.1; O2SAT 95–98
[2022-11-21] MEDS: Enoxaparin Sodium 40 MG/0.4 ML SYRINGE SUBCUT (01:06)
[2022-11-21] MEDS: cefEPime HCl 2 GM in 0.9 % Sodium Chloride 50 ML IV ×3 (01:06→17:26)
[2022-11-21] MEDS: 0.9 % Sodium Chloride Flush 3 ML SYRINGE IVFLUSH ×2 (09:22→17:27)
[2022-11-21] MEDS: Ferrous Sulfate 324 MG TABLET.DR PO (09:27)
[2022-11-21] MEDS: Docusate Sodium 100 MG CAPSULE PO ×2 (09:27→22:02)
[2022-11-21] MEDS: DULoxetine HCl 60 MG CAPSULE.DR PO (09:27)
[2022-11-21] MEDS: Mirabegron 50 MG TAB.ER.24H PO (09:27)
[2022-11-21] MEDS: Multivitamin TABLET 1 TAB PO (09:27)
[2022-11-21] MEDS: Gabapentin 100 MG CAPSULE PO ×3 (09:28→22:00)
[2022-11-21] MEDS: Omeprazole 20 MG CAPSULE.DR PO (09:28)
[2022-11-21] MEDS: Metoprolol Succinate ER 25 MG TAB.ER.24H PO (09:28)
[2022-11-21] MEDS: Cholecalciferol (Vitamin D3) 25 MCG TABLET PO (09:28)
--- NOTE | 2022-11-21 13:25 | MHC.CM.PN ---
EMR REVIEWED, PT W/UTI, URINE CULTURE POSITIVE FOR GRAM NEG BACTERIA, BC'S PENDING, ANTIC PT WILL D/C ON ORAL ABX, NO D/C PLANNED FOR TODAY, CM WILL CONT TO FOLLOW.
--- NOTE | 2022-11-21 14:27 | P.PNIM_ITS ---
Subjective Subjective Date of Service: 11/21/22 Interval History: Seen and evaluated this morning Feels anxious this morning denies any fever or chills Pending urine culture no other overnight events Review of Systems Review of Systems: Yes all other systems are reviewed and are negative Physical Exam Vital Signs: Vital Signs: Last Vital Signs Temp 98 F 11/21/22 11:03 Pulse 73 11/21/22 11:03 Resp 20 11/21/22 11:03 BP 158/68 H 11/21/22 11:03 Pulse Ox 95 11/21/22 11:03 O2 Del Method Room Air 11/21/22 11:03 BMI result Body Mass Index 22.6 Const: Other: Constitutional : Awake, interactive, anxious, not in distress Neck : Normal inspection, Supple Cardiovascular : RRR, no JVP, no lower extremity edema Respiratory : good bilateral air entry, no crackles, wheezes or rhonchi Gastrointestinal: soft, lax, Normal bowel sounds, Non tender Skin : Warm, Dry Neurological : Alert & oriented to self and place, No focal deficit , CN 2-12 within normal Objective Data Active Medications Acetaminophen (Acetaminophen 325 Mg Tablet) 650 mg PO Q6H PRN PRN Reason: Pain, Mild (Pain Scale 1-3) Docusate Sodium (Docusate Sodium 100 Mg Capsule) 100 mg PO DAILY PRN PRN Reason: Constipation Docusate Sodium (Docusate Sodium 100 Mg Capsule) 100 mg PO BID [facility] Last Admin: 11/21/22 09:27 Dose: 100 mg Documented By: VARGHESE Duloxetine HCl (Duloxetine Hcl 60 Mg Capsule.) 60 mg PO DAILY [facility] Last Admin: 11/21/22 09:27 Dose: 60 mg Documented By: VARGHESE Enoxaparin Sodium (Enoxaparin Sodium 40 Mg/0.4 Ml Syringe) 40 mg SUBCUT Q24H [facility] Last Admin: 11/21/22 01:06 Dose: 40 mg Documented By: DESTINEE Ferrous Sulfate (Ferrous Sulfate 324 Mg Tablet.) 324 mg PO DAILY [facility] Last Admin: 11/21/22 09:27 Dose: 324 mg Documented By: VARGHESE Gabapentin (Gabapentin 100 Mg Capsule) 100 mg PO TID [facility] Last Admin: 11/21/22 09:28 Dose: 100 mg Documented By: VARGHESE Cefepime HCl 2 gm/ Sodium (Chloride) 50 mls @ 100 mls/hr IV Q8H [facility] Last Infusion: 11/21/22 10:59 Dose: 0 mls/hr Documented By: VARGHESE Metoprolol Succinate (Metoprolol Succinate Er 25 Mg Tab.Er.24h) 25 mg PO DAILY [facility]; Protocol Last Admin: 11/21/22 09:28 Dose: 25 mg Documented By: VARGHESE Mirabegron (Mirabegron 50 Mg Tab.Er.24h) 50 mg PO DAILY [facility] Last Admin: 11/21/22 09:27 Dose: 50 mg Documented By: VARGHESE Multivitamins/Vitamin C (Multivitamin Tablet) 1 tab PO DAILY [facility] Last Admin: 11/21/22 09:27 Dose: 1 tab Documented By: VARGHESE Omeprazole (Omeprazole 20 Mg Capsule.Dr) 20 mg PO DAILY [facility] Last Admin: 11/21/22 09:28 Dose: 20 mg Documented By: VARGHESE Ondansetron HCl (Ondansetron Hcl 4 Mg/2 Ml Vial) 4 mg IVPUSH Q8H PRN PRN Reason: Nausea and Vomiting Oxycodone HCl (Oxycodone Hcl Immed Release 5 Mg Tablet) 5 mg PO BEDTIME PRN PRN Reason: moderate pain Pharmacy Consult (Consult Rx Perform Med Rec) 1 each MISCELLANE ONCE PRN PRN Reason: Consult order Quetiapine Fumarate (Quetiapine Fumarate 50 Mg Tablet) 50 mg PO BEDTIME [facility] Last Admin: 11/20/22 22:31 Dose: 50 mg Documented By: DESTINEE Sodium Chloride (0.9 % Sodium Chloride Flush 3 Ml Syringe) 3 ml IVFLUSH QSHIFT [facility] Last Admin: 11/21/22 09:22 Dose: 3 ml Documented By: VARGHESE Vitamin D (Cholecalciferol (Vitamin D3) 25 Mcg Tablet) 25 mcg PO DAILY [facility] Last Admin: 11/21/22 09:28 Dose: 25 mcg Documented By: VARGHESE Labs 11/20/22 05:45 11/20/22 05:45 Microbiology Microbiology Results: Microbiology 11/20/22 Unknown Urine Culture - Preliminary Urine Catheterized - Straight Catheter Gram negative ras 11/19/22 20:04 Blood Culture - Preliminary Blood - Venous No growth after 24 hours. 11/19/22 17:59 Blood Culture - Preliminary Blood - Venous No growth after 24 hours. Assessment and Plan (1) Failure of outpatient treatment: Status: Acute (2) Infection caused by Enterobacter cloacae: Status: Acute Plan 82 yo w pmhx of recurrent UTI, alzheimers dementia, comes in with UTI resistant to PO medications enterobacter cloacae UTI resistant to most antibiotics continue cefepime pending new cultures ID eval, if Cx positive treat for 10 days with IV abx depression cymbalta alzheimers dementia stable dvt ppx: Lovenox full code reason for continued hospitalization:awaiting repeat cultures, need iv abx for coverage of resistent organism Time Spent With Patient Time: Total time managing care of this patient today ____ minutes. Quality Stroke Does the patient have a stroke diagnosis?: No VTE Prior VTE?: No VTE Risk Level:: Medical - moderate - high VTE Device Contraindication: Treatment Not Indicated VTE Drug Contraindication: N/A - Med Ordered
[2022-11-21] MEDS: Acetaminophen 325 MG TABLET 650 MG PO (17:31)
[2022-11-21] MEDS: oxyCODONE HCl Immed Release 5 MG TABLET PO (22:01)
[2022-11-21] MEDS: QUEtiapine Fumarate 50 MG TABLET PO (22:01)
[2022-11-22] MEDS: cefEPime HCl 2 GM in 0.9 % Sodium Chloride 50 ML IV ×3 (01:37→16:37)
[2022-11-22] MEDS: Enoxaparin Sodium 40 MG/0.4 ML SYRINGE SUBCUT (01:37)
[2022-11-22 03:35] VITALS: BP 160/79; PULSE 76; RESP 18; TEMP 36.4; O2SAT 98
[2022-11-22 06:48] LABS: Hematocrit 34.5 % (37.0-47.0); Hemoglobin 11.4 g/dl (12.0-16.0); Mean Corpuscular Hemoglobin 30.7 pg (27.0-33.0); Mean Platelet Volume 9.3 fL (9.4-12.3); Platelet Count 196 X10*3/uL (160-400); Red Blood Count 3.71 X10*6/uL (4.20-5.50); Red Cell Distribution Width 13.5 % (11.0-16.0)
[2022-11-22 07:16] LABS: Anion Gap 12 (12-20); Blood Urea Nitrogen 17 mg/dL (9-16); Carbon Dioxide 27 mmol/L (22-29); Chloride 104 mmol/L (96-108); Creatinine Clr Calc Pharmacy 56.7; Estimated Glomerular Filt Rate > 60; Glucose Random 128 mg/dL (60-115); Potassium 4.4 mmol/L (3.3-5.1); Sodium 139 mmol/L (135-145)
[2022-11-22 07:25] VITALS: BP 154/72; PULSE 92; RESP 20; TEMP 36.8; O2SAT 95
[2022-11-22] MEDS: Multivitamin TABLET 1 TAB PO (08:46)
[2022-11-22] MEDS: Ferrous Sulfate 324 MG TABLET.DR PO (08:46)
[2022-11-22] MEDS: Mirabegron 50 MG TAB.ER.24H PO (08:46)
[2022-11-22] MEDS: 0.9 % Sodium Chloride Flush 3 ML SYRINGE IVFLUSH ×2 (08:46→15:58)
[2022-11-22] MEDS: Docusate Sodium 100 MG CAPSULE PO ×2 (08:46→21:21)
[2022-11-22] MEDS: Gabapentin 100 MG CAPSULE PO ×3 (08:46→21:22)
[2022-11-22] MEDS: Cholecalciferol (Vitamin D3) 25 MCG TABLET PO (08:46)
[2022-11-22] MEDS: DULoxetine HCl 60 MG CAPSULE.DR PO (08:46)
[2022-11-22] MEDS: Metoprolol Succinate ER 25 MG TAB.ER.24H PO (08:46)
[2022-11-22] MEDS: Omeprazole 20 MG CAPSULE.DR PO (08:46)
--- NOTE | 2022-11-22 11:47 | HO.MIDLINE_ITS ---
Midline Insertion MIDLINE INSERTION Diagnosis: Urinary tract infection Indication: Need for 10 days of antibiotics Pertinent Labs: reviewed Technique: Using sterile technique including cap and mask, glove and drape, the right arm was prepped and draped in the usual sterile fashion of full barrier technique with CHG. Using ultrasound guidance, the right brachial vein access was obtained in a single attempt by Dr. Gonzalez after 2 attempts by this RN. The vein accessed, patient moving and I was able to wire the midline. Then the same was done by Tiara Pereira RN. . A 20 guage 8 cm midline was positioned. The procedure was performed in S272. Ultrasound was used to document vein patency and for needle entry. A formal ultrasound picture was recorded. [employer] sc[employer]oping Inspector has released the line for use and it is currently dressed with a StatLock, Tegaderm, and CHG disc. Verification has been performed for blood return and line patency. Arm Circumference: 23.5 cm Equipment: PowerGlide ST Midline Catherter Catheter Type: Non-PASV 20 guage 8 cm midline Lot #: [id number]
[2022-11-22 12:00] VITALS: BP 128/61; PULSE 81; RESP 20; TEMP 36.6; O2SAT 94
--- NOTE | 2022-11-22 12:35 | HO.PM.IMPN ---
Subjective Subjective Date of Service: 11/22/22 Interval History: Seen and evaluated this morning Feels much better denies any fever or chills urine culture growing resistant Enterobacter no other overnight events Review of Systems Review of Systems: Yes all other systems are reviewed and are negative Physical Exam Vital Signs: Vital Signs: Last Vital Signs Temp 98.2 F 11/22/22 07:25 Pulse 92 11/22/22 07:25 Resp 20 11/22/22 07:25 BP 154/72 H 11/22/22 07:25 Pulse Ox 95 11/22/22 07:25 O2 Del Method Room Air 11/22/22 07:25 BMI result Body Mass Index 22.6 Const: Other: Constitutional : Awake, interactive, not in distress Neck : Normal inspection, Supple Cardiovascular : RRR, no JVP, no lower extremity edema Respiratory : good bilateral air entry, no crackles, wheezes or rhonchi Gastrointestinal: soft, lax, Normal bowel sounds, Non tender Skin : Warm, Dry Neurological : Alert & oriented to self and place, No focal deficit Objective Data Active Medications Acetaminophen (Acetaminophen 325 Mg Tablet) 650 mg PO Q6H PRN PRN Reason: Pain, Mild (Pain Scale 1-3) Last Admin: 11/21/22 17:31 Dose: 650 mg Documented By: VARGHESE Docusate Sodium (Docusate Sodium 100 Mg Capsule) 100 mg PO DAILY PRN PRN Reason: Constipation Docusate Sodium (Docusate Sodium 100 Mg Capsule) 100 mg PO BID [facility] Last Admin: 11/22/22 08:46 Dose: 100 mg Documented By: VARGHESE Duloxetine HCl (Duloxetine Hcl 60 Mg Capsule.) 60 mg PO DAILY [facility] Last Admin: 11/22/22 08:46 Dose: 60 mg Documented By: VARGHESE Enoxaparin Sodium (Enoxaparin Sodium 40 Mg/0.4 Ml Syringe) 40 mg SUBCUT Q24H [facility] Last Admin: 11/22/22 01:37 Dose: 40 mg Documented By: YAZMIN Ferrous Sulfate (Ferrous Sulfate 324 Mg Tablet.) 324 mg PO DAILY [facility] Last Admin: 11/22/22 08:46 Dose: 324 mg Documented By: VARGHESE Gabapentin (Gabapentin 100 Mg Capsule) 100 mg PO TID [facility] Last Admin: 11/22/22 08:46 Dose: 100 mg Documented By: VARGHESE Cefepime HCl 2 gm/ Sodium (Chloride) 50 mls @ 100 mls/hr IV Q8H [facility] Last Infusion: 11/22/22 09:38 Dose: 0 mls/hr Documented By: VARGHESE Metoprolol Succinate (Metoprolol Succinate Er 25 Mg Tab.Er.24h) 25 mg PO DAILY [facility]; Protocol Last Admin: 11/22/22 08:46 Dose: 25 mg Documented By: VARGHESE Mirabegron (Mirabegron 50 Mg Tab.Er.24h) 50 mg PO DAILY [facility] Last Admin: 11/22/22 08:46 Dose: 50 mg Documented By: VARGHESE Multivitamins/Vitamin C (Multivitamin Tablet) 1 tab PO DAILY [facility] Last Admin: 11/22/22 08:46 Dose: 1 tab Documented By: VARGHESE Omeprazole (Omeprazole 20 Mg Capsule.Dr) 20 mg PO DAILY [facility] Last Admin: 11/22/22 08:46 Dose: 20 mg Documented By: VARGHESE Ondansetron HCl (Ondansetron Hcl 4 Mg/2 Ml Vial) 4 mg IVPUSH Q8H PRN PRN Reason: Nausea and Vomiting Oxycodone HCl (Oxycodone Hcl Immed Release 5 Mg Tablet) 5 mg PO BEDTIME PRN PRN Reason: moderate pain Last Admin: 11/21/22 22:01 Dose: 5 mg Documented By: YAZMIN Pharmacy Consult (Consult Rx Perform Med Rec) 1 each MISCELLANE ONCE PRN PRN Reason: Consult order Quetiapine Fumarate (Quetiapine Fumarate 50 Mg Tablet) 50 mg PO BEDTIME [facility] Last Admin: 11/21/22 22:01 Dose: 50 mg Documented By: YAZMIN Sodium Chloride (0.9 % Sodium Chloride Flush 3 Ml Syringe) 3 ml IVFLUSH QSHIFT [facility] Last Admin: 11/22/22 08:46 Dose: 3 ml Documented By: VARGHESE Vitamin D (Cholecalciferol (Vitamin D3) 25 Mcg Tablet) 25 mcg PO DAILY [facility] Last Admin: 11/22/22 08:46 Dose: 25 mcg Documented By: VARGHESE Labs 11/22/22 06:12 11/22/22 06:12 Labs: Laboratory Results - last 24 hr 11/22/22 11/22/22 06:12 06:12 MCV 93.0 MCH 30.7 MCHC 33.0 RDW 13.5 Plt Count 196 MPV 9.3 L Absolute Nucleated RBC 0.000 Nucleated RBC % (auto) 0.0 Anion Gap 12 Estim Creat Clear Calc 56.7 Estimated GFR > 60 Random Glucose 128 H Calcium 9.0 Microbiology Microbiology Results: Microbiology 11/20/22 Unknown Urine Culture - Final Urine Catheterized - Straight Catheter Enterobacter cloacae complex 11/19/22 20:04 Blood Culture - Preliminary Blood - Venous No growth after 48 hours. 11/19/22 17:59 Blood Culture - Preliminary Blood - Venous No growth after 48 hours. Assessment and Plan (1) Infection caused by Enterobacter cloacae: Status: Acute (2) Failure of outpatient treatment: Status: Acute Plan 82 yo w pmhx of recurrent UTI, alzheimers dementia, comes in with UTI resistant to PO medications enterobacter cloacae UTI resistant to most antibiotics continue cefepime new cultures growing same resistent Bacteria Place Midline ID eval, treat for 10 days with IV abx depression cymbalta alzheimers dementia stable dvt ppx: Lovenox full code reason for continued hospitalization:awaiting safe discharge plan on IV Abx Time Spent With Patient Time: Total time managing care of this patient today ____ minutes. Quality Stroke Does the patient have a stroke diagnosis?: No VTE Prior VTE?: No VTE Risk Level:: Medical - moderate - high VTE Device Contraindication: Treatment Not Indicated VTE Drug Contraindication: N/A - Med Ordered
[2022-11-22 12:46] LABS: INTERNATIONAL NORM RATIO 0.9 (0.9-1.1); Prothrombin Time 10.4 SEC (10.0-13.1)
[2022-11-22 15:14] VITALS: BP 140/71; PULSE 84; RESP 17; TEMP 37; O2SAT 96
[2022-11-22 16:00] VITALS: BP 140/62; PULSE 72; RESP 17; TEMP 37.6; O2SAT 99
[2022-11-22] MEDS: Heparin Sodium,Porcine Flush 50 UNITS, 0.9 % Sodium Chloride Flush 5 ML IVFLUSH (16:38)
[2022-11-22] MEDS: Acetaminophen 325 MG TABLET 650 MG PO (18:10)
[2022-11-22] MEDS: QUEtiapine Fumarate 50 MG TABLET PO (21:21)
[2022-11-22 23:35] VITALS: BP 161/67; PULSE 102; RESP 18; TEMP 37.2; O2SAT 97
[2022-11-23] MEDS: Heparin Sodium,Porcine Flush 50 UNITS, 0.9 % Sodium Chloride Flush 5 ML IVFLUSH ×2 (01:34→08:58)
[2022-11-23] MEDS: 0.9 % Sodium Chloride Flush 3 ML SYRINGE IVFLUSH (01:34)
[2022-11-23] MEDS: cefEPime HCl 2 GM in 0.9 % Sodium Chloride 50 ML IV ×2 (01:39→08:56)
[2022-11-23] MEDS: Enoxaparin Sodium 40 MG/0.4 ML SYRINGE SUBCUT (01:39)
[2022-11-23 03:30] VITALS: BP 188/64; PULSE 104; RESP 18; TEMP 36.8; O2SAT 96
[2022-11-23 08:00] VITALS: BP 140/83; PULSE 80; RESP 20; TEMP 36.2; O2SAT 96
--- NOTE | 2022-11-23 08:25 | MHC.CM.PN ---
PT TO MEDICALLY CLEARED FOR D/C TODAY W/NEW [facility] AND [facility] FOR IV CEFEPIME X 10DAYS AND HOME PT, PT'S DTR EL WILL TRANSPORT AT 12PM.
[2022-11-23] MEDS: Gabapentin 100 MG CAPSULE PO (08:56)
[2022-11-23] MEDS: Docusate Sodium 100 MG CAPSULE PO (08:56)
[2022-11-23] MEDS: Cholecalciferol (Vitamin D3) 25 MCG TABLET PO (08:56)
[2022-11-23] MEDS: DULoxetine HCl 60 MG CAPSULE.DR PO (08:56)
[2022-11-23] MEDS: Mirabegron 50 MG TAB.ER.24H PO (08:56)
[2022-11-23] MEDS: Ferrous Sulfate 324 MG TABLET.DR PO (08:56)
[2022-11-23] MEDS: Omeprazole 20 MG CAPSULE.DR PO (08:56)
[2022-11-23] MEDS: Metoprolol Succinate ER 25 MG TAB.ER.24H PO (08:56)
[2022-11-23] MEDS: Multivitamin TABLET 1 TAB PO (08:56)
[2022-11-23] MEDS: amLODIPine Besylate 5 MG TABLET PO (08:56)
--- NOTE | 2022-11-23 10:53 | PM.DS ---
DS: Providers Provider Date of Service: 11/23/22 Date of admission: 11/20/22 00:39 Primary care physician: LUIS A Barry Consults: 11/20/22 00:38 Consult to Infectious Diseases Routine Consulting Provider: [facility] [place] [facility] Reason for consultation: polyresistant UTI Has provider been notified: No DS: Diagnosis Discharge Diagnosis (1) Infection caused by Enterobacter cloacae: Status: Acute (2) Failure of outpatient treatment: Status: Acute (3) Acute UTI: Status: Acute DS: Summary Hospital Course Hospital Course: Admission note HPI ?82-year-old female with past medical history of Alzheimer's disease, chronic back pain, HTN, Recurrent UTI, presents to the hospital with findings of UTI multi drug resistant. ?patient is oriented to self, not place or time, able to answer questions appropriately.? History is obtained mostly from ED provider, who? obtain the information from patient's daughter who is no longer at bedside.? Daughter reports the patient has worsening UTI infection, she has had subjective fevers, chills, bilateral flank pain, patient herself reports frequency, urgency, denies dysuria.? Patient's daughter reported that she had been diagnosed with a UTI and treated with Keflex but cultures came back which showed enterobacter cloacae poly resistant to Bactrim, Augmentin, cefazolin, ceftazidime, ciprofloxacin, ceftriaxone, macro bed, the only susceptibility was to cefepime and ertapenem.? given persistent symptoms, and positive UA patient will be admitted for IV antibiotics.?Patient denies any chest pain, no shortness of breath, no abdominal pain nausea or vomiting, no diarrhea constipation, no lower extremity edema.? No? numbness weakness or tingling.?Vitals on arrival stable with no significant abnormality. ?labs are significant for WBC of? 6, hemoglobin of 10.5, hematocrit 32.1, UA remains positive for nitrites and WBC as well as bacteria. abdomen pelvic CT shows no acute abnormality within the kidneys or collecting systems, no obstructive changes or perinephric stranding.?patient started on IV antibiotics based on sensitivity and will be admitted for further management and monitoring Hospital course admitted for failure of PO antibiotics as outpatient for treatment of enterobacter cloacae UTI resistant to most antibiotics. Started on Cefepime as she was evaluated by ID specialist who recommended 10 days of Cefepime. patient mentation improved and reports improving back to baseline. new cultures growing same resistent Bacteria. Placed a Midline for OP antibiotics administration. Noted to have elevated BP readings. started on Amlodipine with fair response. to be monitored as outpatient for further adjustment. Start Amlodipine and report 1 week readings of BP to your PCP Continue antibiotics as prescribed Time Spent with Patient Time attestation: Total time managing care of this patient today ____ minutes. Discharge coordination time: Greater than 30 minutes Quality: Safe Use of Opioids Does Pt have an Active Cancer Diagnosis on the Problem List?: No Quality: Stroke Does the patient have a stroke diagnosis?: No Physical Exam Vital Signs: Vital Signs: Last Vital Signs Temp 97.2 F 11/23/22 08:00 Pulse 80 11/23/22 08:00 Resp 20 11/23/22 08:00 BP 140/83 H 11/23/22 08:00 Pulse Ox 96 11/23/22 08:00 O2 Del Method Room Air 11/23/22 08:00 BMI result Body Mass Index 22.6 Const: Other: Constitutional : Awake, interactive, not in distress Neck : Normal inspection, Supple Cardiovascular : RRR, no JVP, no lower extremity edema Respiratory : good bilateral air entry, no crackles, wheezes or rhonchi Gastrointestinal: soft, lax, Normal bowel sounds, Non tender Skin : Warm, Dry Neurological : Alert & oriented to self and place, No focal deficit DS: Data Data Completed and Pending Labs on day of discharge: Laboratory Results - last 24 hr 11/22/22 12:19 PT 10.4 INR 0.9 Preliminary micro results at discharge 11/19/22 20:04 Blood Culture - Preliminary Blood - Venous No growth after 48 hours. 11/19/22 17:59 Blood Culture - Preliminary Blood - Venous No growth after 48 hours. Imaging Chest x-ray: Radiologist's impression: ITS Impressions Abdomen/Pelvis CT 11/19/22 19:58 IMPRESSION: Although degraded by beam hardening artifact from spinal hardware, I do not appreciate any acute abnormality within the kidneys or collecting systems. No obstructive changes or perinephric stranding. Bladder is decompressed and grossly unremarkable. Chronic appearing changes as described above Discharge Plan Discharge Anticipated Discharge Date/Time: 11/23/22 10:49 Patient Disposition: Home Health Service Discharge Diagnosis: UTI by Enterobacter Cloacae Referrals: [facility] [Other] - 1 Day (RESUMPTION OF CARE) [facility] [Other] - 1 Day ([facility] WILL DELIVER YOUR IV ANTIBIOTICS TODAY BEFORE 3PM. PLEASE FEEL FREE TO CALL MAIN NUMBER OR LIAISON KOFI [phone].) [facility] [Outside] - 1 Day ([facility] FOR [facility] AND HOME PT, START OF CARE FOR NURSING WILL BE TODAY AT 3PM. HOME PT WILL START ON SUNDAY 11/26) Thelma Obrien PA [Primary Care Provider] - 1 Week Discharge Medications: New cefepime 2 gram Recon Soln 2 g IV Q8H 10 Days Qty: 30 0RF amlodipine 5 mg Tablet 5 mg PO DAILY Qty: 30 0RF Protocol: Hold for SBP< HOLD for SBP < : 90 Continued multivitamin Tablet 1 tab PO DAILY docusate sodium 100 mg Capsule 100 mg PO BID cholecalciferol (vitamin D3) 25 mcg (1,000 unit) Tablet 25 mcg PO DAILY ferrous sulfate 325 mg (65 mg iron) Tablet 325 mg PO DAILY omeprazole 20 mg capsule,delayed release(DR/EC) 20 mg PO DAILY gabapentin 100 mg capsule 100 mg PO TID metoprolol succinate 25 mg tablet extended release 24 hr 25 mg PO DAILY duloxetine 60 mg capsule,delayed release(DR/EC) 60 mg PO DAILY quetiapine 50 mg tablet 50 mg PO BEDTIME Myrbetriq 50 mg tablet extended release 24 hr 50 mg PO DAILY Discharge Orders: Discharge Order (Routine); Ordered 11/23/22 Ordered By: Joaquín Duque Diet: Advance to usual diet Activity on Discharge: As tolerated Stand Alone Forms: Patient Portal Discharge page Care Plan Goals: Read below Health Concerns: Read below Plan of Treatment: Read below Assessment: You were admitted for failure of outpatient urine infection. urine culture grow resistant bacteria called Enterobacter cloacae. Evaluated by ID who recommended Cefepime for 10 days on discharge. a Midline was placed and you will be followed with visiting nurses at home. Noted to have elevated blood pressure readings. started on Amlodipine 5 mg daily. Start Amlodipine and report 1 week readings of BP to your PCP Continue antibiotics as prescribed
--- NOTE | 2022-11-23 10:59 | P.F2F_ITS ---
Service Date Service Date: 11/23/22 Encounter Date of encounter: 11/23/22 Reasons for Services Signs and symptoms assessed: Resistant bacteria UTI Reason for [facility]: administration of IV, SQ, or IM injection and central line care Reason for physical therapy: home safety and mobility and therapeutic exercises Homebound: Leaving the home is medically contraindicated at this time without the asist of a device and/or another person due th the listed conditions above and below. Reason homebound: unsteady gait / fall risk Certification: Based on the above findings, I certify that this patient is confined to the home and needs intermittent [facility] care, physical therapy and/or speech therapy, or continues to need occupational therapy. The patient is under my care, and I have initiated the establishment of the plan of care. The patient will be followed by a physician who will periodically review the plan of care. Time Spent With Patient Time: Total time managing care of this patient today ____ minutes.
== END 2022-11-23 12:00 | disposition home health service (06) | DRG 690 ==
LOC: HO.ED 11-20 00:25 → HO.EDOVER 11-20 00:50 → HO.IMC 11-20 01:56
PROVIDERS: Nurse Practitioner Family; Admitting Provider Internal Medicine; Emergency Provider Emergency Medicine; PCP Physician Assistant Medical; Visit Provider Student in an Organized Health Care Education/Training Program
PROC: 05H933Z Insertion of Infusion Device into Right Brachial Vein, Percutaneous Approach (ICD-10-PCS; principal; 2022-11-22 11:50)
DX: N39.0 Urinary tract infection, site not specified (principal); Z16.24 Resistance to multiple antibiotics; Z16.19 Resistance to other specified beta lactam antibiotics; F32.A Depression, unspecified; G30.9 Alzheimer's disease, unspecified; G89.29 Other chronic pain; B96.89 Other specified bacterial agents as the cause of diseases classified elsewhere; F02.80 Dementia in other diseases classified elsewhere, unspecified severity, without behavioral disturbance, psychotic disturbance, mood disturbance, and anxiety; Z87.440 Personal history of urinary (tract) infections; Z79.899 Other long term (current) drug therapy
CPT/HCPCS: 36410; 36415; 74177; 80048; 80076; 81001; 83605; 85025; 85027; 85610; 87040; 87086; 87088; 87186; 99285; C1751; C1894; J0692; J1642; J1650; J2270; Q9967

== ENCOUNTER 2022-11-24 17:08 | Inpatient (IN) | payer MEDICARE, SELFPAY ==
--- NOTE | ~2022-11-24 | CT_ITS ---
EXAMINATION: CT HEAD WITHOUT CONTRAST (STROKE PROTOCOL) CLINICAL INFORMATION: Stroke protocol. 82-year-old female with hemiparesis, stroke left COMPARISON: None available. TECHNIQUE: Contiguous axial imaging was performed from the skull base to vertex without intravenous administration of contrast. This CT examination was performed using dose optimization techniques as appropriate, variously including the following: *Automated exposure control *Adjustment of mA and/or kV according to patient size (this includes techniques or standardized protocols for targeted exams where dose is matched to indication/reason for exam; i.e. extremities or head) *Use of iterative reconstruction technique DLP: 703 mGy-cm FINDINGS: There is no evidence of intracranial hemorrhage, acute ischemia or hemorrhagic infarct, no mass or mass effect seen also. There is prominence of sulci and ventricles due to age related involutional changes and there are patchy periventricular white matter changes, stable since previous study as a sequela of microangiopathy Osseous structures are unremarkable. Visualized paranasal sinuses are normal. Mastoids are well aerated. CT/CT head for stroke IMPRESSION: No acute intracranial pathology. No evidence of stroke This critical result was discussed with Rodolfo Fernandez at 5:45 PM hours on 11/24/2022. It was ascertained that the content and urgency of the report was understood at the time of direct communication.
--- NOTE | ~2022-11-24 | MR_ITS ---
EXAMINATION: MR BRAIN WITHOUT CONTRAST CLINICAL INFORMATION: Transient ischemic attack. Left-sided hemiparesis. COMPARISON: CTA head and neck from 11/24/2022. TECHNIQUE: MRI of the brain was obtained using routine sequences without contrast. FINDINGS: No focal restricted diffusion is demonstrated to suggest acute or subacute cerebral ischemia. No evidence of acute hemorrhagic products on heme-sensitive imaging. Small region of chronic encephalomalacia within the right occipital lobe with hemosiderin staining. Confluent periventricular, deep white matter, and brainstem T2 FLAIR hyperintensity consistent with underlying microangiopathy. Proportional prominence of the ventricles and sulcal spaces without evidence of obstructive hydrocephalus. No abnormal mass effect. No midline shift. Normal appearance of the pituitary gland. Normal positioning of the cerebellar tonsils. Normal arterial and venous vascular flow voids are present. Normal, homogeneous marrow signal. Mild mucosal thickening of the paranasal sinuses. No signal abnormalities within the mastoids. Bilateral lens extractions. MR/MR head/brain wo con IMPRESSION: 1. No acute intracranial abnormalities. 2. Moderate to extensive underlying microangiopathy and generalized cerebral volume loss. Small region of chronic encephalomalacia in the right occipital lobe.
--- NOTE | ~2022-11-24 | CT_ITS ---
EXAMINATION: CT ANGIOGRAM HEAD CT ANGIOGRAM NECK CLINICAL INFORMATION: Left-sided hemiparesis. COMPARISON: CT head from 11/24/2022 and 10/19/2022. CT cervical spine from 08/21/2022. TECHNIQUE: Initial noncontrast automotive finance manager imaging of the head and neck was performed. Comparison is made with noncontrast head CT from earlier today. Test bolus sequences followed by intravenous administration 70 mL of Omnipaque 350. Helical imaging was performed in the axial plane from the aortic arch to the skull vertex. Delayed postcontrast imaging of the head was also performed. The data was processed at the invasive cardiovascular technologist's workstation for generation of MIP sequences. Angled MIPs and volume rendered reformatted images were also generated at an offline 3D workstation. Stenoses are assessed in accordance with NASCET criteria unless otherwise indicated. This CT examination was performed using dose optimization techniques as appropriate, variously including the following: *Automated exposure control. *Adjustment of mA and/or kV according to patient size (this includes techniques or standardized protocols for targeted exams where dose is matched to indication/reason for exam; i.e. extremities or head). *Use of iterative reconstruction technique. DLP: 1730 mGy-cm FINDINGS: CT Head: There is no evidence of acute intracranial hemorrhage or edematous territorial infarction. Scattered hypoattenuation in the periventricular and deep white matter are consistent with moderate to extensive microangiopathy. Cruz-white matter differentiation is preserved. Proportional prominence of the ventricles and sulcal spaces. No evidence for obstructive hydrocephalus. No abnormal mass effect or midline shift. No extra-axial fluid collections. No pathologic intra-axial enhancement. No acute soft tissue or osseous abnormalities. Mild mucosal thickening of the paranasal sinuses. The mastoid air cells and middle ear cavities are clear. Multifocal odontogenic enamel erosions. Bilateral lens extractions CT Neck: The thyroid gland and remaining cervical soft tissues are within normal limits. Straightening of the normal cervical lordosis. Ankylosis of the left-sided C3-C4 facets. Interbody fusion device in place at C6-C7. Ankylosis of C5-C6. Advanced degenerative disc disease at C4-C5. Moderate degenerative disc disease at all additional levels. Facet and uncovertebral joint arthropathy leads to osseous encroachment on the neural foramina from C3 to C7. Partially visualized thoracic posterior stabilizing rods. CT Upper Chest: The visualized lung apices and upper mediastinum are within normal limits. Neck CTA: Moderately motion degraded exam. Aortic Arch: Normal contour and caliber with moderate calcific atherosclerotic disease. Classic 3 vessel branching pattern of the aortic arch. Great Vessel Origins: No significant stenosis of the branch origins. Right Common Carotid Artery: No focal stenosis or occlusion. Cervical Right Internal Carotid Artery: Mild calcific atherosclerotic disease of the carotid bulb and proximal internal carotid artery without flow-limiting stenosis. Left Common Carotid Artery: No focal stenosis or occlusion. Cervical Left Internal Carotid Artery: Normal opacification without focal stenosis or occlusion. Cervical Right Vertebral Artery: No focal stenosis or occlusion. Cervical Left Vertebral Artery: Dominant. No focal stenosis or occlusion. Brain CTA: Intracranial Internal Carotid Arteries: Calcific atherosclerotic disease of the intracranial internal carotid arteries without occlusion or flow-limiting stenosis. Right Anterior Cerebral Artery: Normal A1 segment. Normal opacification of the distal LINDA segments. Left Anterior Cerebral Artery: Normal A1 segment. Normal opacification of the distal LINDA segments. Anterior Communicating Artery: Normal. Right Middle Cerebral Artery: Normal M1 segment of the MCA without focal stenosis or occlusion. Normal arborization of the distal segments. Left Middle Cerebral Artery: Normal M1 segment of the MCA without focal stenosis or occlusion. Normal arborization of the distal segments. Right Vertebral Artery: Normal V4 segment. The posterior inferior cerebellar artery is not well opacified; however, there is no CT evidence of acute occlusion. Left Vertebral Artery: Normal V4 segment. Normal opacification of the proximal segments of the posterior inferior cerebellar artery. Basilar Artery: Normal without focal stenosis or occlusion. Normal appearance of the proximal superior cerebellar arteries. Right Posterior Cerebral Artery: The P1 segment is diminutive. origin of the MIXER MACHINE FEEDER with robust opacification of the posterior communicating artery. Normal opacification of the distal MIXER MACHINE FEEDER segments. Left Posterior Cerebral Artery: Normal P1 segment. Normal opacification of the distal MIXER MACHINE FEEDER segments. Normal opacification of the superior sagittal, straight, transverse, and sigmoid sinuses. CT/CT angio head neck stroke IMPRESSION: 1. No evidence of acute intracranial hemorrhage or edematous territorial infarction. Moderate to extensive underlying microangiopathy and generalized cerebral volume loss. 2. CTA of the head and neck without proximal occlusion or flow-limiting stenosis.
--- NOTE | 2022-11-24 17:17 | ECG_ITS ---
Test Reason : STROKE Blood Pressure : / mmHG Vent. Rate : 086 BPM Atrial Rate : 086 BPM P-R Int : 194 ms QRS Dur : 080 ms QT Int : 360 ms P-R-T Axes : 077 005 028 degrees QTc Int : 430 ms Normal sinus rhythm Normal ECG When compared with ECG of 19-OCT-2022 14:46, Vent. rate has increased BY 28 BPM Referred By: Kyrie Reynolds Electronically Signed By:Blanco Echavarria
[2022-11-24 17:37] VITALS: BP 178/68; BP 181/90; PULSE 80; PULSE 88; RESP 20; TEMP 36.7; O2SAT 97; BMI 23.0
[2022-11-24 17:41] LABS: Glucose, Whole Blood 114 mg/dL (60-115)
[2022-11-24 17:54] LABS: Prothrombin Time Whole Bld POC 11.5 sec (11.1-13.5)
[2022-11-24 17:54] LABS: Glucose, Whole Blood 122 mg/dL (60-115)
[2022-11-24 17:55] LABS: MANUAL DIFF FLAG NO
[2022-11-24 18:03] LABS: INTERNATIONAL NORM RATIO 0.9 (0.9-1.1); Prothrombin Time 10.6 SEC (10.0-13.1)
[2022-11-24 18:04] LABS: Basophils Percent Auto 0.6 % (0-2); Eosinophils Absolute Auto 0.2 X10*3/uL (0.0-0.4); Hematocrit 34.4 % (37.0-47.0); Hemoglobin 11.5 g/dl (12.0-16.0); Imm Gran Abs Auto 0.03 X10*3/uL (0.00-0.03); Imm Gran Pct Auto 0.5 % (0.0-0.4); Lymphocytes Absolute Auto 1.8 X10*3/uL (1.2-4.9); Lymphocytes Percent Auto 27.8 % (20-40); Mean Corpuscular HGB Conc 33.4 g/dl (31.0-35.0); Mean Corpuscular Hemoglobin 31.7 pg (27.0-33.0); Mean Corpuscular Volume 94.8 fL (80.0-98.0); Monocytes Absolute Auto 0.7 X10*3/uL (0.1-1.2); Neutrophils Absolute Auto 3.9 x10*3/uL (2.0-8.3); Neutrophils Percent Auto 58.1 % (45-73); Platelet Count 197 X10*3/uL (160-400); Red Blood Count 3.63 X10*6/uL (4.20-5.50); Red Cell Distribution Width 13.7 % (11.0-16.0); White Blood Count 6.6 X10*3/uL (4.8-10.8)
[2022-11-24 18:05] LABS: Partial Thromboplastin Time 28.6 SEC (26.0-36.4)
[2022-11-24] MEDS: iohexoL 350 MG/ML 100 ML INFUS..BTL IV (18:09)
[2022-11-24 18:11] VITALS: TEMP 37.3
[2022-11-24 18:22] LABS: Anion Gap 10 (12-20); Blood Urea Nitrogen 18 mg/dL (9-16); Calcium 9.1 mg/dL (8.4-10.2); Carbon Dioxide 29 mmol/L (22-29); Chloride 104 mmol/L (96-108); Creatinine Clr Calc Pharmacy 56.9; Estimated Glomerular Filt Rate > 60; Glucose Random 114 mg/dL (60-115); Potassium 4.2 mmol/L (3.3-5.1); Sodium 139 mmol/L (135-145)
--- NOTE | 2022-11-24 18:29 | PC.NURSE ---
patient having left side deficits, left arm drift and unable to elevate LLE. baseline patient walks with walker. placed on cardiac care unit nurse and stroke protocol labs sent. will continue to monitor neuro status.
--- NOTE | 2022-11-24 18:39 | PC.NURSE ---
left sided deficits now resolved. ED provider at the bedside
[2022-11-24 18:43] LABS: Troponin-I High Sensitivity < 2.7 ng/L (<3.5-17.0)
--- NOTE | 2022-11-24 18:52 | ED_ITS ---
HPI - Neuro Symptoms/Deficit General Chief Complaint: Stroke Stated Complaint: WEAK,TROUBLE SPEAKING,RECENT UTI,? TIA/STROKE Time Seen by Provider: 11/24/22 17:11 Source: family Mode of arrival: EMS Limitations: altered mental status History of Present Illness HPI Narrative: Patient is 82 years old with history of Alzheimer's dementia, chronic back pain, hypertension, recurrent UTI just discharged yesterday after 3 days of stay for UTI and confusion urine culture grew Enterobacter cloacae per records was sensit jesus to cefepime and ertapenem patient discharged home on 10 days of cefepime through med line. Patient was doing okay since discharge today when she woke up she had difficulty in speaking more than usual unable to get the words out. At around 13:00 patient was feeling weak had chills and around 14:00 family noticed that patient is not using her left side that much at 1500 family noticed patient is more confused unable to get the answer out and had definitely more weak on the left side was not able to ambulate. On arrival in the ER patient was confused alert oriented x1 able to answer few questions had a elpidio neglect to the left side with weakness on the left leg and left arm. Related Data Home Medications Medication Instructions Recorded Confirmed cholecalciferol (vitamin D3) 25 25 mcg PO DAILY 08/21/22 11/20/22 mcg (1,000 unit) tablet docusate sodium 100 mg capsule 100 mg PO BID 08/21/22 11/20/22 multivitamin 1 tab PO DAILY 08/21/22 11/20/22 ferrous sulfate 325 mg (65 mg 325 mg PO DAILY 10/09/22 11/20/22 iron) tablet duloxetine 60 mg capsule,delayed 60 mg PO DAILY 11/20/22 11/20/22 release gabapentin 100 mg capsule 100 mg PO TID 11/20/22 11/20/22 metoprolol succinate 25 mg 25 mg PO DAILY 11/20/22 11/20/22 tablet,extended release 24 hr mirabegron 50 mg tablet,extended 50 mg PO DAILY 11/20/22 11/20/22 release 24 hr (Myrbetriq) omeprazole 20 mg capsule,delayed 20 mg PO DAILY 11/20/22 11/20/22 release quetiapine 50 mg tablet 50 mg PO BEDTIME 11/20/22 11/20/22 amlodipine 5 mg tablet 5 mg PO DAILY 11/24/22 11/24/22 cefepime 2 gram solution for 2 g IV Q8H 11/24/22 11/24/22 injection duloxetine 60 mg capsule,delayed 60 mg PO DAILY 11/24/22 11/24/22 release gabapentin 100 mg capsule 100 mg PO TID 11/24/22 11/24/22 metoprolol succinate 25 mg 25 mg PO DAILY 11/24/22 11/24/22 tablet,extended release 24 hr mirabegron 50 mg tablet,extended 50 mg PO DAILY 11/24/22 11/24/22 release 24 hr (Myrbetriq) omeprazole 20 mg capsule,delayed 20 mg PO DAILY 11/24/22 11/24/22 release quetiapine 50 mg tablet 50 mg PO BEDTIME 11/24/22 11/24/22 Previous Rx's Medication Instructions Recorded amlodipine 5 mg tablet 5 mg PO DAILY #30 tabs 11/23/22 cefepime 2 gram solution for 2 g IV Q8H 10 days #30 ea 11/23/22 injection Allergies Allergy/AdvReac Type Severity Reaction Status Date / Time No Known Allergies Allergy Verified 11/19/22 17:19 Review of Systems Review of Systems: Yes Unobtainable due to mental status [facility] Past Medical History Medical History Alzheimer disease Chronic back pain Dementia HTN (hypertension) Recurrent UTI Squamous cell skin cancer Urge incontinence Surgical History H/O Spinal surgery H/O: hysterectomy Family History Family History Mother Breast cancer Social History Social History Household Members: Family Housing: House Do you presently have visiting nurse or other home services: No Alcohol intake: never Patient Tobacco Use Status: Never used Tobacco Second Hand Smoke Exposure: No Advance Directives Date on File: 06/01/22 service: No Current occupational status: retired Physical Exam Vital Signs: Vital Signs: Last Vital Signs Temp 98.1 F 11/24/22 23:57 Pulse 76 11/24/22 23:57 Resp 15 11/24/22 23:57 BP 191/85 H 11/24/22 23:57 Pulse Ox 98 11/24/22 22:06 O2 Del Method Room Air 11/24/22 23:57 BMI result Body Mass Index 23.0 Appearance: Alert. Oriented X1. No acute distress. Eyes: PERRLA, no pallor or icterus ENT: Pharynx normal. Oral Mucosa moist Neck: Normal inspection. Neck supple. CVS: Normal heart rate and rhythm. Pulses normal. Respiratory: No respiratory distress. Equal air entry bilateral, no wheezing/rales/rhonchi Abdomen: Soft and nontender. Bowel sounds are present, no mass palpable, no CVA tenderness Skin: Skin warm and dry. Normal skin color. Normal skin turgor. Extremities: No lower extremity edema. No calf tenderness Neuro: Oriented X 1. Left hemineglect and left-sided weakness 2 /5 No sensory deficit.No cerebellar signs , cranial nerves II-XII intact Course Reevaluation(s) Reevaluation #1: Patient's CTA head and neck negative for any LVO on reexamination patient able to move her left upper and lower extremity speaking normally slightly confused no focal deficit noticed at this time Time: 18:30 Medications Administered Generic Name Dose Route Start Last Admin Trade Name Freq PRN Reason Stop Dose Admin Aspirin 81 mg 11/24/22 23:35 11/25/22 00:50 Aspirin Enteric Coated 81 Mg Tablet.Dr PO 81 mg DAILY SUJIT Administration Atorvastatin Calcium 80 mg 11/24/22 23:45 11/25/22 00:49 Atorvastatin Calcium 80 Mg Tablet PO 80 mg BEDTIME SUJIT Administration Cefepime HCl 2 gm 11/24/22 23:45 11/25/22 00:49 Cefepime Hcl 2 Gm Vial IV 2 gm Q8H SUJIT Administration Enoxaparin Sodium 40 mg 11/24/22 23:45 11/25/22 00:49 Enoxaparin Sodium 40 Mg/0.4 Ml Syringe SUBCUT 40 mg Q24H SUJIT Administration Quetiapine Fumarate 50 mg 11/24/22 23:45 11/25/22 01:00 Quetiapine Fumarate 50 Mg Tablet PO Not Given BEDTIME SUJIT Discontinued Medications Generic Name Dose Route Start Last Admin Trade Name Freq PRN Reason Stop Dose Admin Acetaminophen 650 mg 11/24/22 18:44 11/24/22 19:08 Acetaminophen 325 Mg Tablet PO 11/24/22 18:45 650 mg ONCE ONE Administration Iohexol 100 ml 11/24/22 18:09 11/24/22 18:09 Iohexol 350 Mg/Ml 100 Ml Infus..Btl IV 11/24/22 18:10 70 ml ONCE ONE Administration Metoprolol Tartrate 5 mg 11/24/22 18:43 11/24/22 19:07 Metoprolol Tartrate 5 Mg/5 Ml Vial IVPUSH 11/24/22 18:44 5 mg ONCE ONE Administration Quetiapine Fumarate 50 mg 11/24/22 21:59 11/24/22 22:11 Quetiapine Fumarate 50 Mg Tablet PO 11/24/22 22:00 50 mg ONCE ONE Administration Medical Decision Making Medical Decision Making [facility] Narrative: Patient with transient expressive aphasia with left-sided weakness unable to explain the anatomical central lesion , CT head CTA head and neck negative. Patient improved significantly and is back to base line. Case discussed with Dr. Arriola would like to admit the patient and evaluate for possible MRI . Meanwhile continue aspirin Differential Diagnosis CVA/TIA/sepsis/functional Consult Healthcare Provider Management of the patient was discussed with: Hospitalist Lab Data [facility] Lab Attestation statement: I reviewed the patient's lab results. 11/24/22 17:49 11/24/22 17:49 Labs: Lab Results 11/24/22 11/24/22 11/24/22 Range/Units 17:37 17:42 17:44 WBC (4.8-10.8) X10*3/uL RBC (4.20-5.50) X10*6/uL Hgb (12.0-16.0) g/dl Hct (37.0-47.0) % MCV (80.0-98.0) fL MCH (27.0-33.0) pg MCHC (31.0-35.0) g/dl RDW (11.0-16.0) % Plt Count (160-400) X10*3/uL MPV (9.4-12.3) fL Immature Gran % (Auto) (0.0-0.4) % Neut % (Auto) (45-73) % Lymph % (Auto) (20-40) % Emmet % (Auto) (2-11) % Eos % (Auto) (0-4) % Baso % (Auto) (0-2) % Lymph # (Auto) (1.2-4.9) X10*3/uL Emmet # (Auto) (0.1-1.2) X10*3/uL Eos # (Auto) (0.0-0.4) X10*3/uL Baso # (Auto) (0.0-0.2) X10*3/uL Abs Immat Gran (auto) (0.00-0.03) X10*3/uL Absolute Neuts (auto) (2.0-8.3) x10*3/uL Absolute Nucleated RBC (0.0-0.012) X10*3/uL Nucleated RBC % (auto) (0.0-0.2) /100WBC PT (10.0-13.1) SEC Whole Blood PT 11.5 (11.1-13.5) sec INR (0.9-1.1) Whole Blood INR 1.0 (0.9-1.1) APTT (26.0-36.4) SEC Sodium (135-145) mmol/L Potassium (3.3-5.1) mmol/L Chloride (96-108) mmol/L Carbon Dioxide (22-29) mmol/L Anion Gap (12-20) BUN (9-16) mg/dL Creatinine (0.5-1.4) mg/dL Estim Creat Clear Calc Estimated GFR POC Glucose 114 122 H (60-115) mg/dL Random Glucose (60-115) mg/dL Calcium (8.4-10.2) mg/dL Total Creatine Kinase (26-140) U/L Troponin I High Sens (<3.5-17.0) ng/L Urine Color Urine Appearance Urine pH (5.0-9.0) Ur Specific [place] (1.005-1.025) Urine Protein (Neg-Trace) mg/dL Urine Glucose (UA) (Negative) mg/dL Urine Ketones (Negative) mg/dL Urine Blood (Negative) Urine Nitrite (Negative) Ur Leukocyte Esterase (Negative) Urine RBC (0-2) /HPF Urine WBC (0-5) /HPF Ur Squamous Epith Cells (0-2) /HPF Urine Bacteria (None Seen) Hyaline Casts (0-2) /LPF 11/24/22 11/24/22 11/24/22 Range/Units 17:49 17:49 17:49 WBC 6.6 (4.8-10.8) X10*3/uL RBC 3.63 L (4.20-5.50) X10*6/uL Hgb 11.5 L (12.0-16.0) g/dl Hct 34.4 L (37.0-47.0) % MCV 94.8 (80.0-98.0) fL MCH 31.7 (27.0-33.0) pg MCHC 33.4 (31.0-35.0) g/dl RDW 13.7 (11.0-16.0) % Plt Count 197 (160-400) X10*3/uL MPV 9.0 L (9.4-12.3) fL Immature Gran % (Auto) 0.5 H (0.0-0.4) % Neut % (Auto) 58.1 (45-73) % Lymph % (Auto) 27.8 (20-40) % Emmet % (Auto) 10.0 (2-11) % Eos % (Auto) 3.0 (0-4) % Baso % (Auto) 0.6 (0-2) % Lymph # (Auto) 1.8 (1.2-4.9) X10*3/uL Emmet # (Auto) 0.7 (0.1-1.2) X10*3/uL Eos # (Auto) 0.2 (0.0-0.4) X10*3/uL Baso # (Auto) 0.0 (0.0-0.2) X10*3/uL Abs Immat Gran (auto) 0.03 (0.00-0.03) X10*3/uL Absolute Neuts (auto) 3.9 (2.0-8.3) x10*3/uL Absolute Nucleated RBC 0.000 (0.0-0.012) X10*3/uL Nucleated RBC % (auto) 0.0 (0.0-0.2) /100WBC PT 10.6 (10.0-13.1) SEC Whole Blood PT (11.1-13.5) sec INR 0.9 (0.9-1.1) Whole Blood INR (0.9-1.1) APTT 28.6 (26.0-36.4) SEC Sodium 139 (135-145) mmol/L Potassium 4.2 (3.3-5.1) mmol/L Chloride 104 (96-108) mmol/L Carbon Dioxide 29 (22-29) mmol/L Anion Gap 10 L (12-20) BUN 18 H (9-16) mg/dL Creatinine 0.67 (0.5-1.4) mg/dL Estim Creat Clear Calc 56.9 Estimated GFR > 60 POC Glucose (60-115) mg/dL Random Glucose 114 (60-115) mg/dL Calcium 9.1 (8.4-10.2) mg/dL Total Creatine Kinase 69 (26-140) U/L Troponin I High Sens (<3.5-17.0) ng/L Urine Color Urine Appearance Urine pH (5.0-9.0) Ur Specific [place] (1.005-1.025) Urine Protein (Neg-Trace) mg/dL Urine Glucose (UA) (Negative) mg/dL Urine Ketones (Negative) mg/dL Urine Blood (Negative) Urine Nitrite (Negative) Ur Leukocyte Esterase (Negative) Urine RBC (0-2) /HPF Urine WBC (0-5) /HPF Ur Squamous Epith Cells (0-2) /HPF Urine Bacteria (None Seen) Hyaline Casts (0-2) /LPF 11/24/22 11/24/22 Range/Units 17:49 19:34 WBC (4.8-10.8) X10*3/uL RBC (4.20-5.50) X10*6/uL Hgb (12.0-16.0) g/dl Hct (37.0-47.0) % MCV (80.0-98.0) fL MCH (27.0-33.0) pg MCHC (31.0-35.0) g/dl RDW (11.0-16.0) % Plt Count (160-400) X10*3/uL MPV (9.4-12.3) fL Immature Gran % (Auto) (0.0-0.4) % Neut % (Auto) (45-73) % Lymph % (Auto) (20-40) % Emmet % (Auto) (2-11) % Eos % (Auto) (0-4) % Baso % (Auto) (0-2) % Lymph # (Auto) (1.2-4.9) X10*3/uL Emmet # (Auto) (0.1-1.2) X10*3/uL Eos # (Auto) (0.0-0.4) X10*3/uL Baso # (Auto) (0.0-0.2) X10*3/uL Abs Immat Gran (auto) (0.00-0.03) X10*3/uL Absolute Neuts (auto) (2.0-8.3) x10*3/uL Absolute Nucleated RBC (0.0-0.012) X10*3/uL Nucleated RBC % (auto) (0.0-0.2) /100WBC PT (10.0-13.1) SEC Whole Blood PT (11.1-13.5) sec INR (0.9-1.1) Whole Blood INR (0.9-1.1) APTT (26.0-36.4) SEC Sodium (135-145) mmol/L Potassium (3.3-5.1) mmol/L Chloride (96-108) mmol/L Carbon Dioxide (22-29) mmol/L Anion Gap (12-20) BUN (9-16) mg/dL Creatinine (0.5-1.4) mg/dL Estim Creat Clear Calc Estimated GFR POC Glucose (60-115) mg/dL Random Glucose (60-115) mg/dL Calcium (8.4-10.2) mg/dL Total Creatine Kinase (26-140) U/L Troponin I High Sens < 2.7 (<3.5-17.0) ng/L Urine Color Yellow Urine Appearance Clear Urine pH 5.5 (5.0-9.0) Ur Specific [place] >= 1.030 H (1.005-1.025) Urine Protein 30 (1+) H (Neg-Trace) mg/dL Urine Glucose (UA) Negative (Negative) mg/dL Urine Ketones Trace (Negative) mg/dL Urine Blood Negative (Negative) Urine Nitrite Negative (Negative) Ur Leukocyte Esterase Negative (Negative) Urine RBC 3-5 H (0-2) /HPF Urine WBC 0-5 (0-5) /HPF Ur Squamous Epith Cells 0-2 (0-2) /HPF Urine Bacteria None Seen (None Seen) Hyaline Casts 0-2 (0-2) /LPF Independent Interpretation I performed an independent interpretation of an: EKG Interpretation: No sinus rhythm heart rate 86 beats per minute normal interval normal axis no acute ischemic changes impression normal EKG Radiology Impression Discussion of test interpretation with radiology: I have reviewed the rad iologist's reading. Radiologist Impression: CT/CT angio head? neck stroke IMPRESSION: 1.? No evidence of acute intracranial hemorrhage or edematous territorial infarction. Moderate to extensive underlying microangiopathy and generalized cerebral volume loss. 2.? CTA of the head and neck without proximal occlusion or flow-limiting stenosis. NIH Stroke Scale Internal: Initial- Upon Arrival Level of Consciousness: Alert Level of Consciousness Questions: Answers one question correctly Level of Consciousness Commands: Performs both tasks correctly Best Gaze: Normal Visual: No visual loss Facial Palsy: Normal Motor Arm (Right): No drift Motor Arm (Left): Drift Motor Leg (Right): No drift Motor Leg (Left): Drift Limb Ataxia: Absent Sensory: Normal Best Language: Mild to moderate aphasia Dysarthia: Normal Extinction and Inattention: No abnormality Score: 4 Discharge Plan Discharge Clinical Impression: Expressive aphasia, Left-sided weakness, Transient cerebral ischemia Patient Disposition: Admitted As Inpatient Interventions: Admission Worksheet (ED) Last Done: 11/25/22 02:04 Discharge Date/Time: 11/25/22 02:04
[2022-11-24] MEDS: Metoprolol Tartrate 5 MG/5 ML VIAL IVPUSH (19:07)
[2022-11-24] MEDS: Acetaminophen 325 MG TABLET 650 MG PO (19:08)
[2022-11-24 19:32] VITALS: BP 175/70; PULSE 66; RESP 18; TEMP 36.7; O2SAT 98
--- NOTE | 2022-11-24 19:34 | MHC.EDTECH ---
PATIENT VITALS SIGN TAKEN AND URINE SAMPLE COLLECTED AND SENT TO LAB .
[2022-11-24 19:42] LABS: Appearance Urine Clear; Color Urine Yellow; Glucose Urine UA Negative (Negative); Leukocyte Esterase Urine Negative (Negative); Nitrite Urine Negative (Negative); PH 5.5 (5.0-9.0); Specific Gravity - Urine >= 1.030 (1.005-1.025); UMIC TRIGGER UACC YES; Urine Blood Negative (Negative); Urine Ketones Trace mg/dL (Negative); Urine Protein 30 (1+) mg/dL (Neg-Trace)
[2022-11-24 19:47] LABS: Bacteria Urine None Seen (None Seen); Hyaline Casts Urine 0-2 /LPF (0-2); Squamous Epithelial Cell Urine 0-2 /HPF (0-2); WBC Urine 0-5 /HPF (0-5)
[2022-11-24 21:31] LABS: Stroke Lab Use COMPLETE
[2022-11-24 21:44] VITALS: BP 178/91; PULSE 70; RESP 13
[2022-11-24 22:06] VITALS: BP 157/103; PULSE 74; RESP 17; TEMP 36.7; O2SAT 98
[2022-11-24] MEDS: QUEtiapine Fumarate 50 MG TABLET PO (22:11)
--- NOTE | 2022-11-24 23:33 | PC.NURSE ---
Patient alert to self and person. Midline IV, purewick in place. Seroquel 50mg administered as per SEP. Patient continues to be reminded to remain in bed. Repositioned for comfort. Provided warm blanket. Call griffith with in reach. Will continue to follow plan of care.
--- NOTE | 2022-11-24 23:33 | PM.IMHP ---
History of Present Illness Date of Service: 11/24/22 Chief Complaint: expressive aphasia this is an 82-year-old female with past medical history of Alzheimer's dementia, chronic back pain, hypertension, history of recurrent UTIs who was discharged from the hospital on 11/23 after being treated for multi drug resistant UTI, patient was treated with cefepime, midline was placed, and sent home with home health. Patient comes into the hospital today with reports of slurred speech as well as inability to will walk noted to have left-sided weakness. Patient is oriented to self, not place or time, unable to give me much history, she does not know why she is in the hospital, for history is obtained mostly from ED physician. It appears the patient was brought in due to slurred speech as well as weakness in the left side, when initially presented to the hospital she was noted to have left-sided weakness with inability to lift left leg, as well as drooping of the left arm. Unable to obtain review of system is patient is a poor historian but generally answers no to all my questions on arrival to the ED patient noted to be hypertensive with blood pressure in the 180s over 90 Labs are significant for BC count of 6.6, hemoglobin of 11.5, hematocrit 34.4, UA negative for acute infection Imaging including head and neck CT angiogram as well as head CT shows no evidence of acute intracranial hemorrhage or territorial infarct, moderate to extensive underlying microangiopathy and generalized cerebral volume loss, CTA showed no proximal occlusion or flow-limiting stenosis Case was discussed with Neurology, patient will be admitted for CVA rule out Review of Systems Review of Systems: Yes Unobtainable due to mental condition and Unobtainable due to mental status PMFSH Medical History Alzheimer disease Chronic back pain Dementia HTN (hypertension) Recurrent UTI Squamous cell skin cancer Urge incontinence Family History Mother Breast cancer Surgical History H/O Spinal surgery H/O: hysterectomy Social History Household Members: Family Housing: House Do you presently have visiting nurse or other home services: No Alcohol intake: never Patient Tobacco Use Status: Never used Tobacco Second Hand Smoke Exposure: No Advance Directives Date on File: 06/01/22 service: No Current occupational status: retired Meds Allergies Allergy/AdvReac Type Severity Reaction Status Date / Time No Known Allergies Allergy Verified 11/19/22 17:19 Home Medications Medication Instructions Recorded Confirmed Last Taken Type cholecalciferol (vitamin D3) 25 25 mcg PO DAILY 08/21/22 11/20/22 Unknown History mcg (1,000 unit) tablet docusate sodium 100 mg capsule 100 mg PO BID 08/21/22 11/20/22 Unknown History multivitamin 1 tab PO DAILY 08/21/22 11/20/22 Unknown History ferrous sulfate 325 mg (65 mg 325 mg PO DAILY 10/09/22 11/20/22 Unknown History iron) tablet duloxetine 60 mg capsule,delayed 60 mg PO DAILY 11/20/22 11/20/22 Unknown History release gabapentin 100 mg capsule 100 mg PO TID 11/20/22 11/20/22 Unknown History metoprolol succinate 25 mg 25 mg PO DAILY 11/20/22 11/20/22 Unknown History tablet,extended release 24 hr mirabegron 50 mg tablet,extended 50 mg PO DAILY 11/20/22 11/20/22 Unknown History release 24 hr (Myrbetriq) omeprazole 20 mg capsule,delayed 20 mg PO DAILY 11/20/22 11/20/22 Unknown History release quetiapine 50 mg tablet 50 mg PO BEDTIME 11/20/22 11/20/22 Unknown History amlodipine 5 mg tablet 5 mg PO DAILY 11/24/22 11/24/22 Unknown History cefepime 2 gram solution for 2 g IV Q8H 11/24/22 11/24/22 Unknown History injection duloxetine 60 mg capsule,delayed 60 mg PO DAILY 11/24/22 11/24/22 Unknown History release gabapentin 100 mg capsule 100 mg PO TID 11/24/22 11/24/22 Unknown History metoprolol succinate 25 mg 25 mg PO DAILY 11/24/22 11/24/22 Unknown History tablet,extended release 24 hr mirabegron 50 mg tablet,extended 50 mg PO DAILY 11/24/22 11/24/22 Unknown History release 24 hr (Myrbetriq) omeprazole 20 mg capsule,delayed 20 mg PO DAILY 11/24/22 11/24/22 Unknown History release quetiapine 50 mg tablet 50 mg PO BEDTIME 11/24/22 11/24/22 Unknown History Physical Exam Vital Signs and Narrative: Vital Signs: Last Vital Signs Temp 98.0 F 11/24/22 22:06 Pulse 74 11/24/22 22:06 Resp 17 11/24/22 22:06 BP 157/103 H 11/24/22 22:06 Pulse Ox 98 11/24/22 22:06 O2 Del Method Room Air 11/24/22 22:06 BMI result Body Mass Index 23.0 Const: Other: oriented to self, not to place or time, not following commands, unable to obtain full physical exam General: cooperative and no acute distress Eyes: General: appearance normal, both eyes and all related structures Resp: Effort & Inspection: normal respiratory effort Auscultation: clear to auscultation bilaterally Cardio: Rate: regular rate Rhythm: regular rhythm GI: Palpation (GI): Soft to palpation Auscultation: normal bowel sounds Skin: General skin exam: no rashes or lesions noted Neuro: Other: unable to obtain accurate neurological exam as patient not cooperating but she appears to be moving all her extremities, unable to assess for strength or cranial nerves Extrem: General: Yes normal to inspection and Yes no pedal edema Results Labs 11/24/22 17:49 11/24/22 17:49 Labs: Laboratory Results - last 24 hr 11/24/22 11/24/22 11/24/22 17:37 17:42 17:44 MCV MCH MCHC RDW Plt Count MPV Immature Gran % (Auto) Neut % (Auto) Lymph % (Auto) Cameron % (Auto) Eos % (Auto) Baso % (Auto) Lymph # (Auto) Cameron # (Auto) Eos # (Auto) Baso # (Auto) Abs Immat Gran (auto) Absolute Neuts (auto) Absolute Nucleated RBC Nucleated RBC % (auto) PT Whole Blood PT 11.5 INR Whole Blood INR 1.0 APTT Anion Gap Estim Creat Clear Calc Estimated GFR POC Glucose 114 122 H Random Glucose Calcium Total Creatine Kinase Troponin I High Sens Urine Color Urine Appearance Urine pH Ur Specific [place] Urine Protein Urine Glucose (UA) Urine Ketones Urine Blood Urine Nitrite Ur Leukocyte Esterase Urine RBC Urine WBC Ur Squamous Epith Cells Urine Bacteria Hyaline Casts 11/24/22 11/24/22 11/24/22 17:49 17:49 17:49 MCV 94.8 MCH 31.7 MCHC 33.4 RDW 13.7 Plt Count 197 MPV 9.0 L Immature Gran % (Auto) 0.5 H Neut % (Auto) 58.1 Lymph % (Auto) 27.8 Cameron % (Auto) 10.0 Eos % (Auto) 3.0 Baso % (Auto) 0.6 Lymph # (Auto) 1.8 Cameron # (Auto) 0.7 Eos # (Auto) 0.2 Baso # (Auto) 0.0 Abs Immat Gran (auto) 0.03 Absolute Neuts (auto) 3.9 Absolute Nucleated RBC 0.000 Nucleated RBC % (auto) 0.0 PT 10.6 Whole Blood PT INR 0.9 Whole Blood INR APTT 28.6 Anion Gap 10 L Estim Creat Clear Calc 56.9 Estimated GFR > 60 POC Glucose Random Glucose 114 Calcium 9.1 Total Creatine Kinase 69 Troponin I High Sens Urine Color Urine Appearance Urine pH Ur Specific [place] Urine Protein Urine Glucose (UA) Urine Ketones Urine Blood Urine Nitrite Ur Leukocyte Esterase Urine RBC Urine WBC Ur Squamous Epith Cells Urine Bacteria Hyaline Casts 11/24/22 11/24/22 17:49 19:34 MCV MCH MCHC RDW Plt Count MPV Immature Gran % (Auto) Neut % (Auto) Lymph % (Auto) Cameron % (Auto) Eos % (Auto) Baso % (Auto) Lymph # (Auto) Cameron # (Auto) Eos # (Auto) Baso # (Auto) Abs Immat Gran (auto) Absolute Neuts (auto) Absolute Nucleated RBC Nucleated RBC % (auto) PT Whole Blood PT INR Whole Blood INR APTT Anion Gap Estim Creat Clear Calc Estimated GFR POC Glucose Random Glucose Calcium Total Creatine Kinase Troponin I High Sens < 2.7 Urine Color Yellow Urine Appearance Clear Urine pH 5.5 Ur Specific [place] >= 1.030 H Urine Protein 30 (1+) H Urine Glucose (UA) Negative Urine Ketones Trace Urine Blood Negative Urine Nitrite Negative Ur Leukocyte Esterase Negative Urine RBC 3-5 H Urine WBC 0-5 Ur Squamous Epith Cells 0-2 Urine Bacteria None Seen Hyaline Casts 0-2 Imaging Radiologist's Impressions: Impressions Head CT 11/24/22 17:43 IMPRESSION: No acute intracranial pathology. No evidence of stroke This critical result was discussed with Rodolfo Fernandez at 5:45 PM hours on 11/24/2022. It was ascertained that the content and urgency of the report was understood at the time of direct communication. Head/Neck CTA 11/24/22 18:08 IMPRESSION: 1. No evidence of acute intracranial hemorrhage or edematous territorial infarction. Moderate to extensive underlying microangiopathy and generalized cerebral volume loss. 2. CTA of the head and neck without proximal occlusion or flow-limiting stenosis. Assessment and Plan (1) Expressive aphasia: Status: Acute (2) Left-sided weakness: Status: Acute (3) CVA (cerebral vascular accident): Status: Acute Plan this is a 82-year-old female with past medical history of multidrug resistant UTI, hypertension, Alzheimer's dementia who presents to the hospital with expressive aphasia and left-sided weakness # acute CVA /expressive aphasia as well as left-sided weakness - symptoms started morning of day of presentation - unable to assess neurological exam is patient not cooperating - CT angiogram of the head and neck as well as CT head show no acute finding - case was discussed with Neurology, will admit, obtain MRI in a.m., will start her on atorvastatin 80 mg as well as aspirin daily - NIH Q 4, PT OT consulted # hypertension - slightly elevated, but will allow for permissive hypertension at this time - resume blood pressure medications prior to discharge # UTI - continue cefepime started on 11/20, to be completed on 11/30 (total of 10 days ) # continue mood stabilizers DVT prophylaxis: Lovenox Time Spent With Patient Time: Total time managing care of this patient today ____ minutes. Quality Stroke Does the patient have a stroke diagnosis?: No VTE Prior VTE?: No VTE Risk Level:: Medical - moderate - high VTE Device Contraindication: Treatment Not Indicated VTE Drug Contraindication: N/A - Med Ordered
[2022-11-24 23:57] VITALS: BP 191/85; PULSE 76; RESP 15; TEMP 36.7
--- NOTE | 2022-11-25 00:07 | MHC.EDTECH ---
0000 rounding done ,vitals sign taken pt reposition pure wick in place and is working well ,warm blanket given .
[2022-11-25] MEDS: Enoxaparin Sodium 40 MG/0.4 ML SYRINGE SUBCUT (00:49)
[2022-11-25] MEDS: Atorvastatin Calcium 80 MG TABLET PO ×2 (00:49→19:50)
[2022-11-25] MEDS: Aspirin Enteric Coated 81 MG TABLET.DR PO ×2 (00:50→08:19)
--- NOTE | 2022-11-25 02:02 | PC.NURSE ---
Nurse to Nurse report given to Jacey RN and Samia RN. Patient transported to 472 by oil and gas exploration technician
[2022-11-25 03:06] VITALS: BP 184/86; PULSE 78; RESP 18; TEMP 36.9; O2SAT 95
[2022-11-25 06:24] LABS: MANUAL DIFF FLAG NO
[2022-11-25 06:39] LABS: Basophils Percent Auto 0.7 % (0-2); Eosinophils Absolute Auto 0.2 X10*3/uL (0.0-0.4); Eosinophils Percent Auto 3.5 % (0-4); Hematocrit 34.3 % (37.0-47.0); Hemoglobin 11.5 g/dl (12.0-16.0); Imm Gran Abs Auto 0.03 X10*3/uL (0.00-0.03); Imm Gran Pct Auto 0.6 % (0.0-0.4); Lymphocytes Absolute Auto 1.2 X10*3/uL (1.2-4.9); Lymphocytes Percent Auto 22.1 % (20-40); Mean Corpuscular HGB Conc 33.5 g/dl (31.0-35.0); Mean Corpuscular Hemoglobin 31.5 pg (27.0-33.0); Mean Platelet Volume 9.3 fL (9.4-12.3); Monocytes Absolute Auto 0.5 X10*3/uL (0.1-1.2); Monocytes Percent Auto 9.3 % (2-11); Neutrophils Absolute Auto 3.4 x10*3/uL (2.0-8.3); Neutrophils Percent Auto 63.8 % (45-73); Platelet Count 175 X10*3/uL (160-400); Red Blood Count 3.65 X10*6/uL (4.20-5.50); Red Cell Distribution Width 13.3 % (11.0-16.0); White Blood Count 5.4 X10*3/uL (4.8-10.8)
[2022-11-25 06:51] LABS: Anion Gap 9 (12-20); Blood Urea Nitrogen 13 mg/dL (9-16); Calcium 9.1 mg/dL (8.4-10.2); Carbon Dioxide 30 mmol/L (22-29); Chloride 105 mmol/L (96-108); Creatinine Clr Calc Pharmacy 66.8; Estimated Glomerular Filt Rate > 60; Glucose Random 95 mg/dL (60-115); Potassium 3.8 mmol/L (3.3-5.1); Sodium 140 mmol/L (135-145)
[2022-11-25 06:55] LABS: Cholesterol 203 mg/dL; HDL Cholesterol 66 mg/dL; LDL Cholesterol Calculated 116 mg/dl; Triglycerides 105 mg/dL
[2022-11-25 07:35] VITALS: BMI 24.0
[2022-11-25 07:38] VITALS: BP 140/88; PULSE 89; RESP 20; TEMP 37.4; O2SAT 98
--- NOTE | 2022-11-25 07:38 | PHA.MEDREC ---
Pharmacy Consult ? Medication Reconciliation Pharmacy has completed the medication reconciliation Patient recently discharged on 11/23/22. Utilized medical record and called primary contact Socorro (Daughter) to confirm. Daughter mentioned patient was on scheduled oxycodone 5mg at bedtime and then PRN q6H for breakthrough pain.
--- NOTE | 2022-11-25 07:41 | PC.NURSE ---
pt arrived to unit anxious, fearful and perseveratively chanting for God to help her. She was oriented to staff and room, High falls precautions instituted, Pt reassured, music played, and 1:1 staff when most anxious with + effect pt then falling asleep. pt very stiff, she reported pain in lower abdomen x1 then denied after passing gas. incontinent of urine, pt pullled out purewick x3. BP elevated >220 with mechanical bp, manual by this RN 184/86 pt agitated, stiff, and talking with all bp's taken. MD Morgan aware.
[2022-11-25] MEDS: Metoprolol Succinate ER 25 MG TAB.ER.24H PO (08:19)
[2022-11-25] MEDS: DULoxetine HCl 60 MG CAPSULE.DR PO (08:19)
[2022-11-25] MEDS: Omeprazole 20 MG CAPSULE.DR PO (08:19)
[2022-11-25] MEDS: Mirabegron 50 MG TAB.ER.24H PO (08:19)
[2022-11-25] MEDS: Acetaminophen 325 MG TABLET 650 MG PO (08:19)
--- NOTE | 2022-11-25 09:27 | MHC.CM.PN ---
Patient is here with Expressive Aphasia and Dementia; CM spoke with Daughter/HCP/Martha @ [phone] and addressed VERMA with Martha (original will be mailed to Martha and a copy has been placed on the chart). Patient is a LTC Resident of [facility] and returning there is the goal. CM has initiated and will follow for dc planning. Patient has received Pfizer/Covid vax x3 and her PCP is Dr. Thelma Obrien.
--- NOTE | 2022-11-25 09:31 | MHC.STROKE ---
11/24/22 1656 EMS PRE-NOTIFIED STROKE WITH SLURRED SPEECH, WEAKNESS, ONSET APPROX. 1300. NOTIFIED BY MANAGER NET AT 1702, PATIENT ARRIVED AT 1708. SEEN BY PROVIDER AT 1711 NIHSS = 4. STROKE PROTOCOL ACTIVATED CT AND CTA H/N DONE. NO BLEED, NO LVO. HTN 181/90. EXCLUDED FROM TPA-ALTEPLASE DUE TO DELAY IN ARRIVAL FROM ONSET. DR BERMUDEZ NOTIFIED ALSO. SEE ED PROVIDER NOTE. SHE PASSED NURSING SWALLOW SCREEN PRIOR TO PO, STROKE EDUCATION INITIATED. ALL STROKE QUALITY MEASURES IN PLACE. NEUROLOGY CONSULT AND MRI PENDING.
--- NOTE | 2022-11-25 10:53 | P.PNIM_ITS ---
Subjective Subjective Date of Service: 11/25/22 Interval History: Seen and evaluated this morning answers with few words on occasions otherwise keeps saying YES looks anxious able to tolerate diet well no other overnight events Review of Systems Review of Systems: Yes all other systems are reviewed and are negative Physical Exam Vital Signs: Vital Signs: Last Vital Signs Temp 99.3 F 11/25/22 07:38 Pulse 89 11/25/22 07:38 Resp 20 11/25/22 07:38 BP 140/88 H 11/25/22 07:38 Pulse Ox 98 11/25/22 07:38 O2 Del Method Room Air 11/25/22 07:38 BMI result Body Mass Index 24.0 Const: Other: Constitutional : Awake, interactive, anxious and mildly distressed Neck : Normal inspection, Supple Cardiovascular : RRR, no JVP, no lower extremity edema Respiratory : good bilateral air entry, no crackles, wheezes or rhonchi Gastrointestinal: soft, lax, Normal bowel sounds, Non tender Skin : Warm, Dry Neurological : Alert & oriented to self only, left side neglect , no clear a phasia, fluent when speaks but answers with YES most of times, weaker on LUE 4- /5, LLE unable to follow commants Objective Data Active Medications Acetaminophen (Acetaminophen 325 Mg Tablet) 650 mg PO Q6H PRN PRN Reason: Pain, Mild (Pain Scale 1-3) Last Admin: 11/25/22 08:19 Dose: 650 mg Documented By: ESTELA Aspirin (Aspirin Enteric Coated 81 Mg Tablet.) 81 mg PO DAILY [facility] Last Admin: 11/25/22 08:19 Dose: 81 mg Documented By: ESTELA Atorvastatin Calcium (Atorvastatin Calcium 80 Mg Tablet) 80 mg PO BEDTIME [facility] Last Admin: 11/25/22 00:49 Dose: 80 mg Documented By: CAITLYN Docusate Sodium (Docusate Sodium 100 Mg Capsule) 100 mg PO DAILY PRN PRN Reason: Constipation Docusate Sodium (Docusate Sodium 100 Mg Capsule) 100 mg PO BID [facility] Duloxetine HCl (Duloxetine Hcl 60 Mg Capsule.) 60 mg PO DAILY [facility] Last Admin: 11/25/22 08:19 Dose: 60 mg Documented By: ESTELA Enoxaparin Sodium (Enoxaparin Sodium 40 Mg/0.4 Ml Syringe) 40 mg SUBCUT Q24H [facility] Last Admin: 11/25/22 00:49 Dose: 40 mg Documented By: CAITLYN Meropenem 1 gm/ Sodium (Chloride) 100 mls @ 200 mls/hr IV Q8H [facility] Metoprolol Succinate (Metoprolol Succinate Er 25 Mg Tab.Er.24h) 25 mg PO DAILY [facility]; Protocol Last Admin: 11/25/22 08:19 Dose: 25 mg Documented By: ESTELA Mirabegron (Mirabegron 50 Mg Tab.Er.24h) 50 mg PO DAILY [facility] Last Admin: 11/25/22 08:19 Dose: 50 mg Documented By: ESTELA Omeprazole (Omeprazole 20 Mg Capsule.Dr) 20 mg PO DAILY [facility] Last Admin: 11/25/22 08:19 Dose: 20 mg Documented By: ESTELA Ondansetron HCl (Ondansetron Hcl 4 Mg/2 Ml Vial) 4 mg IVPUSH Q8H PRN PRN Reason: Nausea and Vomiting Quetiapine Fumarate (Quetiapine Fumarate 50 Mg Tablet) 50 mg PO BEDTIME [facility] Last Admin: 11/25/22 01:00 Dose: Not Given Documented By: CAITLYN Non-Admin Reason: Duplicate Order Labs 11/25/22 06:06 11/25/22 06:06 Labs: Laboratory Results - last 24 hr 11/24/22 11/24/22 11/24/22 17:37 17:42 17:44 MCV MCH MCHC RDW Plt Count MPV Immature Gran % (Auto) Neut % (Auto) Lymph % (Auto) [place] % (Auto) Eos % (Auto) Baso % (Auto) Lymph # (Auto) [place] # (Auto) Eos # (Auto) Baso # (Auto) Abs Immat Gran (auto) Absolute Neuts (auto) Absolute Nucleated RBC Nucleated RBC % (auto) PT Whole Blood PT 11.5 INR Whole Blood INR 1.0 APTT Anion Gap Estim Creat Clear Calc Estimated GFR POC Glucose 114 122 H Random Glucose Calcium Total Creatine Kinase Troponin I High Sens Triglycerides Cholesterol LDL Cholesterol, Calc HDL Cholesterol Urine Color Urine Appearance Urine pH Ur Specific [place] Urine Protein Urine Glucose (UA) Urine Ketones Urine Blood Urine Nitrite Ur Leukocyte Esterase Urine RBC Urine WBC Ur Squamous Epith Cells Urine Bacteria Hyaline Casts 11/24/22 11/24/22 11/24/22 17:49 17:49 17:49 MCV 94.8 MCH 31.7 MCHC 33.4 RDW 13.7 Plt Count 197 MPV 9.0 L Immature Gran % (Auto) 0.5 H Neut % (Auto) 58.1 Lymph % (Auto) 27.8 [place] % (Auto) 10.0 Eos % (Auto) 3.0 Baso % (Auto) 0.6 Lymph # (Auto) 1.8 [place] # (Auto) 0.7 Eos # (Auto) 0.2 Baso # (Auto) 0.0 Abs Immat Gran (auto) 0.03 Absolute Neuts (auto) 3.9 Absolute Nucleated RBC 0.000 Nucleated RBC % (auto) 0.0 PT 10.6 Whole Blood PT INR 0.9 Whole Blood INR APTT 28.6 Anion Gap 10 L Estim Creat Clear Calc 56.9 Estimated GFR > 60 POC Glucose Random Glucose 114 Calcium 9.1 Total Creatine Kinase 69 Troponin I High Sens Triglycerides Cholesterol LDL Cholesterol, Calc HDL Cholesterol Urine Color Urine Appearance Urine pH Ur Specific [place] Urine Protein Urine Glucose (UA) Urine Ketones Urine Blood Urine Nitrite Ur Leukocyte Esterase Urine RBC Urine WBC Ur Squamous Epith Cells Urine Bacteria Hyaline Casts 11/24/22 11/24/22 11/25/22 17:49 19:34 06:06 MCV 94.0 MCH 31.5 MCHC 33.5 RDW 13.3 Plt Count 175 MPV 9.3 L Immature Gran % (Auto) 0.6 H Neut % (Auto) 63.8 Lymph % (Auto) 22.1 [place] % (Auto) 9.3 Eos % (Auto) 3.5 Baso % (Auto) 0.7 Lymph # (Auto) 1.2 [place] # (Auto) 0.5 Eos # (Auto) 0.2 Baso # (Auto) 0.0 Abs Immat Gran (auto) 0.03 Absolute Neuts (auto) 3.4 Absolute Nucleated RBC 0.000 Nucleated RBC % (auto) 0.0 PT Whole Blood PT INR Whole Blood INR APTT Anion Gap Estim Creat Clear Calc Estimated GFR POC Glucose Random Glucose Calcium Total Creatine Kinase Troponin I High Sens < 2.7 Triglycerides Cholesterol LDL Cholesterol, Calc HDL Cholesterol Urine Color Yellow Urine Appearance Clear Urine pH 5.5 Ur Specific [place] >= 1.030 H Urine Protein 30 (1+) H Urine Glucose (UA) Negative Urine Ketones Trace Urine Blood Negative Urine Nitrite Negative Ur Leukocyte Esterase Negative Urine RBC 3-5 H Urine WBC 0-5 Ur Squamous Epith Cells 0-2 Urine Bacteria None Seen Hyaline Casts 0-2 11/25/22 11/25/22 06:06 06:06 MCV MCH MCHC RDW Plt Count MPV Immature Gran % (Auto) Neut % (Auto) Lymph % (Auto) [place] % (Auto) Eos % (Auto) Baso % (Auto) Lymph # (Auto) [place] # (Auto) Eos # (Auto) Baso # (Auto) Abs Immat Gran (auto) Absolute Neuts (auto) Absolute Nucleated RBC Nucleated RBC % (auto) PT Whole Blood PT INR Whole Blood INR APTT Anion Gap 9 L Estim Creat Clear Calc 66.8 Estimated GFR > 60 POC Glucose Random Glucose 95 Calcium 9.1 Total Creatine Kinase Troponin I High Sens Triglycerides 105 Cholesterol 203 LDL Cholesterol, Calc 116 HDL Cholesterol 66 Urine Color Urine Appearance Urine pH Ur Specific [place] Urine Protein Urine Glucose (UA) Urine Ketones Urine Blood Urine Nitrite Ur Leukocyte Esterase Urine RBC Urine WBC Ur Squamous Epith Cells Urine Bacteria Hyaline Casts Assessment and Plan (1) Left-sided weakness: Status: Acute (2) Expressive aphasia: Status: Acute Plan this is a 82-year-old female with past medical history of multidrug resistant UTI, hypertension, Alzheimer's dementia who presents to the hospital with e xpressive aphasia and left-sided weakness # expressive aphasia w left-sided weakness concerning for possible TIA vs stroke could be seizure activity vs drug side effect CT angiogram of the head and neck as well as CT head show no acute finding pending Neurology consult obtain MRI passed swallowing eval atorvastatin 80 mg and aspirin daily NIH Q 4, PT OT consulted # hypertension allow for permissive hypertension at this time resume blood pressure medications prior to discharge # UTI Change Cefepime to Meropenem, to be completed on 11/30 (total of 10 days ) ID eval # continue mood stabilizers DVT prophylaxis: Lovenox Time Spent With Patient Time: Total time managing care of this patient today ____ minutes. Quality Stroke Does the patient have a stroke diagnosis?: No VTE Prior VTE?: No VTE Risk Level:: Medical - moderate - high VTE Device Contraindication: Treatment Not Indicated VTE Drug Contraindication: N/A - Med Ordered
[2022-11-25] MEDS: oxyCODONE HCl Immed Release 5 MG TABLET PO (11:06)
[2022-11-25 11:07] VITALS: BP 178/85; PULSE 80; RESP 20; TEMP 37.8; O2SAT 95
[2022-11-25] MEDS: LORazepam 2 MG/ML VIAL 1 MG IVPUSH (12:21)
[2022-11-25] MEDS: amLODIPine Besylate 5 MG TABLET PO (15:49)
[2022-11-25 15:51] VITALS: BP 160/100; PULSE 98; RESP 18; TEMP 36.7; O2SAT 96
[2022-11-25] MEDS: QUEtiapine Fumarate 50 MG TABLET PO (19:50)
[2022-11-25] MEDS: Docusate Sodium 100 MG CAPSULE PO (19:50)
[2022-11-25 19:56] VITALS: BP 159/80; PULSE 85; RESP 18; TEMP 37; O2SAT 96
[2022-11-25 23:18] VITALS: BP 180/82; PULSE 80; RESP 18; TEMP 36.7; O2SAT 99
--- NOTE | 2022-11-26 | EEG_ITS ---
This is a 16-channel EEG with an EKG lead. Patient is reported confused and drowsy during this tracing. Background EEG rhythm is 5 to 7 hertz, 5 to 70 microvolts posteriorly and lower amplitude fast anteriorly. Photic stimulation and hyperventilation were not performed. Cardiac lead did not reveal any significant abnormality. No definite sharp wave spikes or paroxysmal tendency noted. IMPRESSION: Generalized slowing with no evidence of seizure disorder. MD KACI Becker/SAVANA / [id number]
[2022-11-26] MEDS: Enoxaparin Sodium 40 MG/0.4 ML SYRINGE SUBCUT (01:20)
[2022-11-26 03:32] VITALS: BP 142/90; PULSE 98; RESP 18; TEMP 36.6; O2SAT 98
[2022-11-26 07:51] VITALS: BP 178/90; PULSE 88; RESP 20; TEMP 36.6; O2SAT 94
[2022-11-26] MEDS: Docusate Sodium 100 MG CAPSULE PO ×2 (09:14→21:06)
[2022-11-26] MEDS: Omeprazole 20 MG CAPSULE.DR PO (09:15)
[2022-11-26] MEDS: Mirabegron 50 MG TAB.ER.24H PO (09:15)
[2022-11-26] MEDS: QUEtiapine Fumarate 25 MG TABLET PO (09:15)
[2022-11-26] MEDS: Aspirin Enteric Coated 81 MG TABLET.DR PO (09:15)
[2022-11-26] MEDS: amLODIPine Besylate 10 MG TABLET PO (09:15)
[2022-11-26] MEDS: DULoxetine HCl 60 MG CAPSULE.DR PO (09:15)
[2022-11-26] MEDS: Metoprolol Succinate ER 25 MG TAB.ER.24H PO (09:15)
--- NOTE | 2022-11-26 09:41 | PM.NEUROCN ---
History of Present Illness Data of Consult Service Date: 11/26/22 Primary Care Provider: Unknown Physician HPI Reason for consult: Difficulty speaking 82 years old woman with underlying history of dementia came to hospital with difficulty speaking. She was initially evaluated for stroke but not treated because of significant timed delay and lack of clarity of diagnosis. There was no history of any recent seizure-like episode. She has been admitted to hospital with UTI recently. 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 via midlime) Unable to assess alcohol history related to: Unknown Alcohol intake: never Patient Tobacco Use Status: Former Tobacco user Tobacco use type: Cigarette e-Cigarette/Vaping Use: Never Used Second Hand Smoke Exposure: No Advance Directives Date on File: 06/01/22 service: No Current occupational status: retired Meds Allergies Allergy/AdvReac Type Severity Reaction Status Date / Time No Known Allergies Allergy Verified 11/19/22 17:19 Active Medications: Current Medications Acetaminophen (Acetaminophen 325 Mg Tablet) 650 mg PO Q6H PRN PRN Reason: Pain, Mild (Pain Scale 1-3) Last Admin: 11/25/22 08:19 Dose: 650 mg Amlodipine Besylate (Amlodipine Besylate 10 Mg Tablet) 10 mg PO DAILY [facility]; Protocol Last Admin: 11/26/22 09:15 Dose: 10 mg Aspirin (Aspirin Enteric Coated 81 Mg Tablet.) 81 mg PO DAILY [facility] Last Admin: 11/26/22 09:15 Dose: 81 mg Atorvastatin Calcium (Atorvastatin Calcium 80 Mg Tablet) 80 mg PO BEDTIME [facility] Last Admin: 11/25/22 19:50 Dose: 80 mg Docusate Sodium (Docusate Sodium 100 Mg Capsule) 100 mg PO DAILY PRN PRN Reason: Constipation Docusate Sodium (Docusate Sodium 100 Mg Capsule) 100 mg PO BID [facility] Last Admin: 11/26/22 09:14 Dose: 100 mg Duloxetine HCl (Duloxetine Hcl 60 Mg Capsule.Dr) 60 mg PO DAILY [facility] Last Admin: 11/26/22 09:15 Dose: 60 mg Enoxaparin Sodium (Enoxaparin Sodium 40 Mg/0.4 Ml Syringe) 40 mg SUBCUT Q24H [facility] Last Admin: 11/26/22 01:20 Dose: 40 mg Meropenem 1 gm/ Sodium (Chloride) 100 mls @ 200 mls/hr IV Q8H [facility] Last Admin: 11/26/22 09:32 Dose: 200 mls/hr Metoprolol Succinate (Metoprolol Succinate Er 25 Mg Tab.Er.24h) 25 mg PO DAILY [facility]; Protocol Last Admin: 11/26/22 09:15 Dose: 25 mg Mirabegron (Mirabegron 50 Mg Tab.Er.24h) 50 mg PO DAILY [facility] Last Admin: 11/26/22 09:15 Dose: 50 mg Omeprazole (Omeprazole 20 Mg Capsule.) 20 mg PO DAILY [facility] Last Admin: 11/26/22 09:15 Dose: 20 mg Ondansetron HCl (Ondansetron Hcl 4 Mg/2 Ml Vial) 4 mg IVPUSH Q8H PRN PRN Reason: Nausea and Vomiting Oxycodone HCl (Oxycodone Hcl Immed Release 5 Mg Tablet) 5 mg PO Q6H PRN PRN Reason: Breakthrough Pain Last Admin: 11/25/22 11:06 Dose: 5 mg Quetiapine Fumarate (Quetiapine Fumarate 50 Mg Tablet) 50 mg PO BEDTIME [facility] Last Admin: 11/25/22 19:50 Dose: 50 mg Home Medications Medication Instructions Recorded Confirmed Last Taken Type cholecalciferol (vitamin D3) 25 25 mcg PO DAILY 08/21/22 11/25/22 Unknown History mcg (1,000 unit) tablet docusate sodium 100 mg capsule 100 mg PO BID 08/21/22 11/25/22 Unknown History multivitamin 1 tab PO DAILY 08/21/22 11/25/22 Unknown History ferrous sulfate 325 mg (65 mg 325 mg PO DAILY 10/09/22 11/25/22 Unknown History iron) tablet amlodipine 5 mg tablet 5 mg PO DAILY 11/24/22 11/25/22 Unknown History cefepime 2 gram solution for 2 g IV Q8H 11/24/22 11/25/22 Unknown History injection duloxetine 60 mg capsule,delayed 60 mg PO DAILY 11/24/22 11/25/22 Unknown History release gabapentin 100 mg capsule 100 mg PO TID 11/24/22 11/25/22 Unknown History metoprolol succinate 25 mg 25 mg PO DAILY 11/24/22 11/25/22 Unknown History tablet,extended release 24 hr mirabegron 50 mg tablet,extended 50 mg PO DAILY 11/24/22 11/25/22 Unknown History release 24 hr (Myrbetriq) omeprazole 20 mg capsule,delayed 20 mg PO DAILY@0630 11/24/22 11/25/22 Unknown History release quetiapine 50 mg tablet 50 mg PO BEDTIME 11/24/22 11/25/22 Unknown History oxycodone 5 mg tablet 5 mg PO BEDTIME 11/25/22 11/25/22 Unknown History oxycodone 5 mg tablet 5 mg PO Q6H PRN Breakthrough Pain 11/25/22 11/25/22 Unknown History Physical Exam Vital Signs: Vital Signs: Last Vital Signs Temp 97.8 F 11/26/22 07:51 Pulse 88 11/26/22 07:51 Resp 20 11/26/22 07:51 BP 178/90 H 11/26/22 07:51 Pulse Ox 94 11/26/22 07:51 O2 Del Method Room Air 11/26/22 07:51 BMI result Body Mass Index 24.0 Neuro: Other: She is alert and awake with decreased spontaneity and fluency of speech. She comprehended but did not take part in conversation mostly resisting questioning. After she was given medicine, she started coughing. There was no focal facial or arm or leg weakness. Deep tendon reflexes were absent. Results Labs 11/25/22 06:06 11/25/22 06:06 Labs: MRI of brain did not reveal any acute abnormality. Moderately severe diffuse cerebral atrophy and moderately severe chronic microvascular ischemic changes were noted. Assessment and Plan (1) Multifactorial dementia: Status: Acute 82 years old woman with multifactorial dementia. This type of patient can easily get confused and can have difficulty speaking and comprehension if there were infected. I had noticed that she was coughing excessively after she was given some medicine or water. She might have tendency for aspiration increasing her risk for infection. She should be fed and sitting erect posture otherwise there is no sign of a stroke or a seizure. Time Spent With Patient Time: Total time managing care of this patient today ____ minutes. Procedures Date of Service Date of Service: 11/26/22
--- NOTE | 2022-11-26 09:45 | PC.NURSE ---
pt took all her morning meds and pt was in high vega position up in her bed. pt chewed her meds before taking water or juice. This nurse gave one med a time. At the last PO gel capsule (Colace), pt chewed and started to cough continually before taking any sip of water. After 5 minutes, coughing resolve. pt is stable. notified for the risk of aspiration
[2022-11-26 12:00] VITALS: BP 139/72; PULSE 77; RESP 18; TEMP 36.5; O2SAT 96
--- NOTE | 2022-11-26 12:53 | P.PNIM_ITS ---
Subjective Subjective Date of Service: 11/26/22 Interval History: Seen and evaluated this morning more isolated and less interactive today MRI negative for stroke able to tolerate diet well no other overnight events Review of Systems Review of Systems: Yes all other systems are reviewed and are negative Physical Exam Vital Signs: Vital Signs: Last Vital Signs Temp 97.7 F 11/26/22 12:00 Pulse 77 11/26/22 12:00 Resp 18 11/26/22 12:00 BP 139/72 11/26/22 12:00 Pulse Ox 96 11/26/22 12:00 O2 Del Method Room Air 11/26/22 12:00 BMI result Body Mass Index 24.0 Const: Other: Constitutional : Awake, interactive, anxious and mildly distressed Neck : Normal inspection, Supple Cardiovascular : RRR, no JVP, no lower extremity edema Respiratory : good bilateral air entry, no crackles, wheezes or rhonchi Gastrointestinal: soft, lax, Normal bowel sounds, Non tender Skin : Warm, Dry Neurological : Alert & oriented to self only, left side neglect , no clear aphasia, fluent when speaks but answers with YES most of times, weaker on LUE 4- /5, LLE unable to follow commants Objective Data Active Medications Acetaminophen (Acetaminophen 325 Mg Tablet) 650 mg PO Q6H PRN PRN Reason: Pain, Mild (Pain Scale 1-3) Last Admin: 11/25/22 08:19 Dose: 650 mg Documented By: ESTELA Amlodipine Besylate (Amlodipine Besylate 10 Mg Tablet) 10 mg PO DAILY [facility]; Protocol Last Admin: 11/26/22 09:15 Dose: 10 mg Documented By: MECHELLE Aspirin (Aspirin Enteric Coated 81 Mg Tablet.) 81 mg PO DAILY [facility] Last Admin: 11/26/22 09:15 Dose: 81 mg Documented By: MECHELLE Atorvastatin Calcium (Atorvastatin Calcium 80 Mg Tablet) 80 mg PO BEDTIME [facility] Last Admin: 11/25/22 19:50 Dose: 80 mg Documented By: LAKEISHA Docusate Sodium (Docusate Sodium 100 Mg Capsule) 100 mg PO DAILY PRN PRN Reason: Constipation Docusate Sodium (Docusate Sodium 100 Mg Capsule) 100 mg PO BID [facility] Last Admin: 11/26/22 09:14 Dose: 100 mg Documented By: MECHELLE Duloxetine HCl (Duloxetine Hcl 60 Mg Capsule.) 60 mg PO DAILY [facility] Last Admin: 11/26/22 09:15 Dose: 60 mg Documented By: MECHELLE Enoxaparin Sodium (Enoxaparin Sodium 40 Mg/0.4 Ml Syringe) 40 mg SUBCUT Q24H [facility] Last Admin: 11/26/22 01:20 Dose: 40 mg Documented By: LAKEISHA Meropenem 1 gm/ Sodium (Chloride) 100 mls @ 200 mls/hr IV Q8H [facility] Last Infusion: 11/26/22 10:02 Dose: 0 mls/hr Documented By: MECHELLE Metoprolol Succinate (Metoprolol Succinate Er 25 Mg Tab.Er.24h) 25 mg PO DAILY [facility]; Protocol Last Admin: 11/26/22 09:15 Dose: 25 mg Documented By: MECHELLE Mirabegron (Mirabegron 50 Mg Tab.Er.24h) 50 mg PO DAILY [facility] Last Admin: 11/26/22 09:15 Dose: 50 mg Documented By: MECHELLE Omeprazole (Omeprazole 20 Mg Capsule.) 20 mg PO DAILY [facility] Last Admin: 11/26/22 09:15 Dose: 20 mg Documented By: MECHELLE Ondansetron HCl (Ondansetron Hcl 4 Mg/2 Ml Vial) 4 mg IVPUSH Q8H PRN PRN Reason: Nausea and Vomiting Oxycodone HCl (Oxycodone Hcl Immed Release 5 Mg Tablet) 5 mg PO Q6H PRN PRN Reason: Breakthrough Pain Last Admin: 11/25/22 11:06 Dose: 5 mg Documented By: ESTELA Quetiapine Fumarate (Quetiapine Fumarate 50 Mg Tablet) 50 mg PO BEDTIME [facility] Last Admin: 11/25/22 19:50 Dose: 50 mg Documented By: LAKEISHA Labs 11/25/22 06:06 11/25/22 06:06 Assessment and Plan (1) Multifactorial dementia: Status: Acute (2) Infection caused by Enterobacter cloacae: Status: Acute (3) Toxic metabolic encephalopathy: Status: Acute (4) Left-sided weakness: Status: Acute Plan this is a 82-year-old female with past medical history of multidrug resistant UTI, hypertension, Alzheimer's dementia who presents to the hospital with e xpressive aphasia and left-sided weakness # Toxic metabolic encephalpathy with reported aphasia w left-sided weakness no evidence of stroke could be seizure activity vs drug side effect CT angiogram of the head and neck as well as CT head show no acute finding MRI negative for acute stroke but showing Moderately severe diffuse cerebral atrophy and moderately severe chronic microvascular ischemic changes Neurology input appreciated aspiration precautions atorvastatin 80 mg and aspirin daily PT OT # hypertension allow for permissive hypertension at this time resume blood pressure medications prior to discharge # UTI Change Cefepime to Meropenem, to be completed on 11/30 (total of 10 days ) ID eval pending # continue mood stabilizers DVT prophylaxis: Lovenox patient will need overnight hospital stay for encephalopathy, on IV Abx pending safe discahrge plan Time Spent With Patient Time: Total time managing care of this patient today ____ minutes. Quality Stroke Does the patient have a stroke diagnosis?: No VTE Prior VTE?: No VTE Risk Level:: Medical - moderate - high VTE Device Contraindication: Treatment Not Indicated VTE Drug Contraindication: N/A - Med Ordered
--- NOTE | 2022-11-26 14:21 | MHC.CM.PN ---
EMR reviewed and per MD rounds, pt changed from obs to inpatient due toxic metabolic encephalopathy with reported aphasia with left-sided weakness and dysphasia. CM will continue to follow.
[2022-11-26 16:00] VITALS: BP 125/60; PULSE 76; RESP 18; TEMP 37; O2SAT 98
[2022-11-26 19:15] VITALS: BP 127/57; PULSE 67; RESP 18; TEMP 37; O2SAT 98
[2022-11-26] MEDS: QUEtiapine Fumarate 50 MG TABLET PO (21:06)
[2022-11-26] MEDS: Atorvastatin Calcium 80 MG TABLET PO (21:06)
[2022-11-26 23:32] VITALS: BP 126/90; PULSE 80; RESP 18; TEMP 36.5; O2SAT 96
[2022-11-27] MEDS: Enoxaparin Sodium 40 MG/0.4 ML SYRINGE SUBCUT (00:34)
[2022-11-27 03:24] VITALS: BP 130/78; PULSE 75; RESP 18; TEMP 36.5; O2SAT 98
[2022-11-27 07:19] VITALS: BP 140/70; PULSE 82; RESP 20; TEMP 36.6; O2SAT 97
[2022-11-27] MEDS: amLODIPine Besylate 10 MG TABLET PO (08:57)
[2022-11-27] MEDS: Omeprazole 20 MG CAPSULE.DR PO (08:57)
[2022-11-27] MEDS: Mirabegron 50 MG TAB.ER.24H PO (08:57)
[2022-11-27] MEDS: Docusate Sodium 100 MG CAPSULE PO ×2 (08:57→21:20)
[2022-11-27] MEDS: Aspirin Enteric Coated 81 MG TABLET.DR PO (08:57)
[2022-11-27] MEDS: DULoxetine HCl 60 MG CAPSULE.DR PO (08:57)
[2022-11-27] MEDS: Metoprolol Succinate ER 25 MG TAB.ER.24H PO (08:58)
[2022-11-27 11:26] VITALS: BP 167/111; PULSE 112; RESP 20; TEMP 36.7; O2SAT 97
--- NOTE | 2022-11-27 12:16 | MHC.CM.PN ---
EMR reviewed and per MD rounds, pt medically cleared for D/C. [facility]. Referral sent to [facility] for IV antibiotic infusion, and IV antibiotic order faxed to [facility]. Plan will be for pt to receive IV antibiotic dose tomorrow am then D/C home to the [facility]. Spoke to pts daughter Martha who was in agreement with plan and very pleased that her mother was improved. [facility] to transport.
--- NOTE | 2022-11-27 12:50 | P.PNIM_ITS ---
Subjective Subjective Date of Service: 11/27/22 Interval History: Seen and evaluated this morning more alert and interactive back to her baseline able to tolerate diet well no other overnight events Review of Systems Review of Systems: Yes all other systems are reviewed and are negative Physical Exam Vital Signs: Vital Signs: Last Vital Signs Temp 98.0 F 11/27/22 11:26 Pulse 112 H 11/27/22 11:26 Resp 20 11/27/22 11:26 BP 167/111 H 11/27/22 11:26 Pulse Ox 97 11/27/22 11:26 O2 Del Method Room Air 11/27/22 11:26 BMI result Body Mass Index 24.0 Const: Other: Constitutional : Awake, interactive, anxious and mildly distressed Neck : Normal inspection, Supple Cardiovascular : RRR, no JVP, no lower extremity edema Respiratory : good bilateral air entry, no crackles, wheezes or rhonchi Gastrointestinal: soft, lax, Normal bowel sounds, Non tender Skin : Warm, Dry Neurological : Alert & oriented to self and place, fluent when speaks , following commands, no focal weakness Objective Data Active Medications Acetaminophen (Acetaminophen 325 Mg Tablet) 650 mg PO Q6H PRN PRN Reason: Pain, Mild (Pain Scale 1-3) Last Admin: 11/25/22 08:19 Dose: 650 mg Documented By: ESTELA Amlodipine Besylate (Amlodipine Besylate 10 Mg Tablet) 10 mg PO DAILY [facility]; Protocol Last Admin: 11/27/22 08:57 Dose: 10 mg Documented By: LING Aspirin (Aspirin Enteric Coated 81 Mg Tablet.) 81 mg PO DAILY [facility] Last Admin: 11/27/22 08:57 Dose: 81 mg Documented By: LING Atorvastatin Calcium (Atorvastatin Calcium 80 Mg Tablet) 80 mg PO BEDTIME [facility] Last Admin: 11/26/22 21:06 Dose: 80 mg Documented By: FATEMEH Docusate Sodium (Docusate Sodium 100 Mg Capsule) 100 mg PO DAILY PRN PRN Reason: Constipation Docusate Sodium (Docusate Sodium 100 Mg Capsule) 100 mg PO BID [facility] Last Admin: 11/27/22 08:57 Dose: 100 mg Documented By: LING Duloxetine HCl (Duloxetine Hcl 60 Mg Capsule.) 60 mg PO DAILY [facility] Last Admin: 11/27/22 08:57 Dose: 60 mg Documented By: LING Enoxaparin Sodium (Enoxaparin Sodium 40 Mg/0.4 Ml Syringe) 40 mg SUBCUT Q24H [facility] Last Admin: 11/27/22 00:34 Dose: 40 mg Documented By: FATEMEH Meropenem 1 gm/ Sodium (Chloride) 100 mls @ 200 mls/hr IV Q8H [facility] Last Infusion: 11/27/22 10:52 Dose: 0 mls/hr Documented By: LING Metoprolol Succinate (Metoprolol Succinate Er 25 Mg Tab.Er.24h) 25 mg PO DAILY [facility]; Protocol Last Admin: 11/27/22 08:58 Dose: 25 mg Documented By: LING Mirabegron (Mirabegron 50 Mg Tab.Er.24h) 50 mg PO DAILY [facility] Last Admin: 11/27/22 08:57 Dose: 50 mg Documented By: LING Omeprazole (Omeprazole 20 Mg Capsule.Dr) 20 mg PO DAILY [facility] Last Admin: 11/27/22 08:57 Dose: 20 mg Documented By: LING Ondansetron HCl (Ondansetron Hcl 4 Mg/2 Ml Vial) 4 mg IVPUSH Q8H PRN PRN Reason: Nausea and Vomiting Oxycodone HCl (Oxycodone Hcl Immed Release 5 Mg Tablet) 5 mg PO Q6H PRN PRN Reason: Breakthrough Pain Last Admin: 11/25/22 11:06 Dose: 5 mg Documented By: ESTELA Quetiapine Fumarate (Quetiapine Fumarate 50 Mg Tablet) 50 mg PO BEDTIME [facility] Last Admin: 11/26/22 21:06 Dose: 50 mg Documented By: FATEMEH Labs 11/25/22 06:06 11/25/22 06:06 Assessment and Plan (1) Toxic metabolic encephalopathy: Status: Acute (2) Multifactorial dementia: Status: Acute (3) Acute UTI: Status: Acute Plan this is a 82-year-old female with past medical history of multidrug resistant UTI, hypertension, Alzheimer's dementia who presents to the hospital with expressive aphasia and left-sided weakness # Toxic metabolic encephalpathy with reported aphasia w left-sided weakness Imroving, close to baseline no evidence of stroke or seizure likely drug side effect from Cefepime CT angiogram of the head and neck as well as CT head show no acute finding MRI negative for acute stroke but showing Moderately severe diffuse cerebral atrophy and moderately severe chronic microvascular ischemic changes Neurology input appreciated Antibiotic changed to Meropenem aspiration precautions atorvastatin 80 mg and aspirin daily PT OT # UTI Change Cefepime to Meropenem, to be completed on 12/01 (total of 10 days ) Plan to go home on Ertapenem ID eval pending # hypertension allow for permissive hypertension at this time resume blood pressure medications prior to discharge # continue mood stabilizers DVT prophylaxis: Lovenox patient will need overnight hospital stay for encephalopathy, on IV Abx pending safe discahrge plan Time Spent With Patient Time: Total time managing care of this patient today ____ minutes. Quality Stroke Does the patient have a stroke diagnosis?: No VTE Prior VTE?: No VTE Risk Level:: Medical - moderate - high VTE Device Contraindication: Treatment Not Indicated VTE Drug Contraindication: N/A - Med Ordered
[2022-11-27 15:27] VITALS: BP 148/58; PULSE 86; RESP 14; TEMP 36.3; O2SAT 94
[2022-11-27 19:21] VITALS: BP 122/60; PULSE 80; RESP 14; TEMP 36.3; O2SAT 96
[2022-11-27] MEDS: Atorvastatin Calcium 80 MG TABLET PO (21:20)
[2022-11-27] MEDS: QUEtiapine Fumarate 50 MG TABLET PO (21:20)
[2022-11-27 23:25] VITALS: BP 138/64; PULSE 74; RESP 18; TEMP 37.2; O2SAT 98
[2022-11-28] MEDS: Enoxaparin Sodium 40 MG/0.4 ML SYRINGE SUBCUT (00:16)
[2022-11-28] MEDS: oxyCODONE HCl Immed Release 5 MG TABLET PO (00:22)
[2022-11-28 03:17] VITALS: BP 140/80; PULSE 74; RESP 18; TEMP 36.7; O2SAT 98
[2022-11-28 07:51] VITALS: BP 140/80; PULSE 77; RESP 20; TEMP 36.9; O2SAT 95
[2022-11-28] MEDS: Docusate Sodium 100 MG CAPSULE PO (09:29)
[2022-11-28] MEDS: DULoxetine HCl 60 MG CAPSULE.DR PO (09:29)
[2022-11-28] MEDS: Mirabegron 50 MG TAB.ER.24H PO (09:29)
[2022-11-28] MEDS: Omeprazole 20 MG CAPSULE.DR PO (09:29)
[2022-11-28] MEDS: Metoprolol Succinate ER 25 MG TAB.ER.24H PO (09:29)
[2022-11-28] MEDS: Aspirin Enteric Coated 81 MG TABLET.DR PO (09:30)
[2022-11-28] MEDS: amLODIPine Besylate 10 MG TABLET PO (09:30)
--- NOTE | 2022-11-28 09:42 | P.DS_ITS ---
DS: Providers Provider Date of Service: 11/28/22 Date of admission: 11/26/22 13:15 Primary care physician: LUIS A Brary Consults: 11/24/22 23:31 Consult to Neurology Routine Consulting Provider: [facility] Reason for consultation: TIA/stroke Has provider been notified: Yes 11/25/22 08:47 Consult to Infectious Diseases Routine Consulting Provider: Paloma Mendoza Reason for consultation: Confusion, Enterobacter sensitive to Ertapenem\cefepime. DS: Diagnosis Discharge Diagnosis (1) Toxic metabolic encephalopathy: Status: Acute (2) Multifactorial dementia: Status: Acute (3) Acute UTI: Status: Acute DS: Summary Hospital Course Hospital Course: from initial hpi: Chief Complaint:? expressive aphasia ?this is an 82-year-old female with past medical history of Alzheimer's dementia, chronic back pain, hypertension, history of recurrent UTIs who was discharged from the hospital on 11/23 after being treated for multi drug resistant UTI, patient was treated with cefepime, midline was placed, and sent home? with home health.? Patient comes into the hospital today with reports of slurred speech as well as inability to will walk noted to have left-sided weakness.? Patient is oriented to self, not place or time, unable to give me much history, she does not know why she is in the hospital, for history is obtained mostly from ED physician.? It appears the patient was brought in due to slurred speech as well as weakness in the left side, when initially presented to the hospital she was noted to have left-sided weakness with inability to lift left leg, as well as drooping of the left arm. Unable to obtain review of system is patient is a poor historian but generally? answers no to all my questions ?on arrival to the ED patient noted to be hypertensive with blood pressure in the 180s over 90 Labs are significant for BC count of 6.6, hemoglobin of 11.5, hematocrit 34.4, UA negative for acute infection Imaging including head and neck CT angiogram as well as head CT shows no evidence of acute intracranial hemorrhage or territorial infarct, moderate to extensive underlying microangiopathy and generalized cerebral volume loss, CTA showed no proximal occlusion or flow-limiting stenosis Case was discussed with Neurology, patient will be admitted for CVA rule out hospital course: Patient was admitted for acute toxic metabolic encephalopathy due to urinary tract infection. Her antibiotics was changed from cefepime to meropenem and on discharge she will be treated with 10 more days of ertapenem. Acute CVA was ruled out with negative MRI which did show severe diffuse cerebral atrophy and moderately severe chronic microvascular ischemic changes. For hypertension she will continue on amlodipine and metoprolol. For mood disorder she will continue on Cymbalta. Patient's mental status back to baseline. She will be discharged home to assisted living facility to complete her IV antibiotics and PT OT Time Spent with Patient Time attestation: Total time managing care of this patient today ____ minutes. Discharge coordination time: Greater than 30 minutes Quality: Safe Use of Opioids Does Pt have an Active Cancer Diagnosis on the Problem List?: No Quality: Stroke Does the patient have a stroke diagnosis?: No Physical Exam Vital Signs: Vital Signs: Last Vital Signs Temp 98.4 F 11/28/22 07:51 Pulse 77 11/28/22 07:51 Resp 20 11/28/22 07:51 BP 140/80 H 11/28/22 07:51 Pulse Ox 95 11/28/22 07:51 O2 Del Method Room Air 11/28/22 07:51 BMI result Body Mass Index 24.0 Const: Other: Constitutional : Awake, interactive, anxious and mildly distressed Neck : Normal inspection, Supple Cardiovascular : RRR, no JVP, no lower extremity edema Respiratory : good bilateral air entry, no crackles, wheezes or rhonchi Gastrointestinal: soft, lax, Normal bowel sounds, Non tender Skin : Warm, Dry Neurological : Alert & oriented to self and place, fluent when speaks , following commands, no focal weakness DS: Data Data Completed and Pending Completed studies during hospitalization [Text1]: Procedures Insertion of Infusion Device into Right Brachial Vein, Percutaneous Approach (11/20/22) Discharge Plan Discharge Anticipated Discharge Date/Time: 11/28/22 09:39 Patient Disposition: Home Health Service Discharge Diagnosis: uti Referrals: Thelma Obrien PA [Primary Care Provider] - 1 Week Discharge Medications: New ertapenem 1 gram recon soln 1 g IV DAILY 10 Days Qty: 10 0RF Continued multivitamin Tablet 1 tab PO DAILY docusate sodium 100 mg Capsule 100 mg PO BID cholecalciferol (vitamin D3) 25 mcg (1,000 unit) Tablet 25 mcg PO DAILY ferrous sulfate 325 mg (65 mg iron) Tablet 325 mg PO DAILY amlodipine 5 mg tablet 5 mg PO DAILY omeprazole 20 mg capsule,delayed release(DR/EC) 20 mg PO DAILY@0630 gabapentin 100 mg capsule 100 mg PO TID metoprolol succinate 25 mg tablet extended release 24 hr 25 mg PO DAILY duloxetine 60 mg capsule,delayed release(DR/EC) 60 mg PO DAILY quetiapine 50 mg tablet 50 mg PO BEDTIME Myrbetriq 50 mg tablet extended release 24 hr 50 mg PO DAILY oxycodone 5 mg tablet 5 mg PO Q6H PRN (Reason: Breakthrough Pain) oxycodone 5 mg tablet 5 mg PO BEDTIME Discontinued cefepime 2 gram recon soln 2 g IV Q8H Discharge Orders: Discharge Order (Routine); Ordered 11/28/22 Ordered By: Juan Carlos Mack Diet: Advance to usual diet Activity on Discharge: As tolerated Stand Alone Forms: Patient Portal Discharge page Care Plan Goals: treat uti Health Concerns: uti Plan of Treatment: 10 more days ertapenem Assessment: see above
--- NOTE | 2022-11-28 09:48 | MHC.CM.PN ---
IMM 11/28/22. Pt cleared for discharge today, going back to the [facility] in [place] via [facility], set up for 12pm. Pts daughter Martha updated and in agreement with plan. [facility] to set up IV antibiotics, and [facility] to see pt.
[2022-11-28 11:16] VITALS: BP 161/74; PULSE 69; RESP 20; TEMP 36.9; O2SAT 98
[2022-11-28] MEDS: Ertapenem Sodium 1 GM in 0.9 % Sodium Chloride 50 ML IV (11:58)
--- NOTE | 2022-12-07 08:38 | MHC.CM.PN ---
PT is recommending that Patient return as a LTC Resident at [facility]; CM has initiated and will follow for dc planning. Patient was recently active with [facility]. HCP is on file and PCP is Dr. Thelma Obrien. Patient has received Pfizer/Covid vax x3 and IMM to be addressed with family (Alzheimer's Dementia & Metabolic Encephalopathy).
== END 2022-11-28 14:20 | disposition home health service (06) | DRG 689 ==
LOC: HO.ED 17:54 → HO.EDOVER 23:35 → HO.IMC 11-25 01:36
PROVIDERS: Admitting Provider Internal Medicine; Emergency Provider Internal Medicine; PCP Physician Assistant Medical; Visit Provider Internal Medicine
DX: N39.0 Urinary tract infection, site not specified (principal); G92.8 Other toxic encephalopathy; R47.01 Aphasia; G30.9 Alzheimer's disease, unspecified; F02.80 Dementia in other diseases classified elsewhere, unspecified severity, without behavioral disturbance, psychotic disturbance, mood disturbance, and anxiety; I10 Essential (primary) hypertension; G89.29 Other chronic pain; M54.9 Dorsalgia, unspecified; Z87.440 Personal history of urinary (tract) infections; Z87.891 Personal history of nicotine dependence; Z79.899 Other long term (current) drug therapy
CPT/HCPCS: 36415; 70450; 70496; 70498; 70551; 80048; 80061; 81001; 82550; 82947; 84484; 85025; 85610; 85730; 93005; 95816; 97163; 97166; 99285; J0692; J1335; J1650; J2060; J2185; Q9967

== ENCOUNTER 2022-12-06 08:39 | Inpatient (IN) | payer MEDICARE, SELFPAY ==
--- NOTE | ~2022-12-06 | XR_ITS ---
EXAMINATION: XR KNEE, LEFT CLINICAL INFORMATION: Left knee bruising. Left hip fracture. COMPARISON: None available. TECHNIQUE: Three views of the left knee. Positioning in the lateral projection was suboptimal. FINDINGS: No significant tricompartmental degenerative joint changes are seen. Degenerative fracture, dislocation or joint effusion. The soft tissues are unremarkable. XR/XR knee LT 2V IMPRESSION: Limited study without overt fracture or significant degenerative changes.
--- NOTE | ~2022-12-06 | XR_ITS ---
EXAMINATION: XR CHEST CLINICAL INFORMATION: Status post fall with chest pain. COMPARISON: 08/21/2022 chest radiograph. TECHNIQUE: Frontal view of the chest was obtained. FINDINGS: Support devices: Posterior spinal fusion hardware intact without abnormality or change. There is minimal blunting of the left costophrenic angle. The left upper lung field and right lung are clear. Multilevel healed left rib fractures are again noted. The heart and mediastinal structures are unremarkable. XR/XR chest 1V IMPRESSION: 1. Interval decrease in left pleural effusion with residual minimal pleural scarring versus very small pleural effusion. 2. Multilevel healed left rib fractures similar to the previous study without overt acute fracture.
--- NOTE | ~2022-12-06 | CT_ITS ---
EXAMINATION: CT CERVICAL SPINE WITHOUT CONTRAST CLINICAL INFORMATION: Shortness of breath. COMPARISON: 10/19/[address] scan. TECHNIQUE: Multiple axial images of the cervical spine were obtained without administration of intravenous contrast. Coronal and sagittal reformatted images were obtained. This CT examination was performed using dose optimization techniques as appropriate, variously including the following: *Automated exposure control *Adjustment of mA and/or kV according to patient size (this includes techniques or standardized protocols for targeted exams where dose is matched to indication/reason for exam; i.e. extremities or head) *Use of iterative reconstruction technique DLP: 298.45 mGy-cm FINDINGS: There is normal cervical lordosis and spinal alignment. Mild to moderate multilevel degenerative disc disease is seen most pronounced at C4-5 and C7-T1. Status post anterior fusion at C6-7 without overt hardware abnormality. Osseous fusion at C5-6. Posterior fusion hardware partially visualized in the thoracic spine. Mild multilevel bilateral neural foraminal narrowing. The odontoid process is intact with moderate articulating degenerative changes. Mild to moderate multilevel bilateral facet arthropathy. The spinous and transverse processes are intact. The lung apices are clear. The cervical soft tissues are unremarkable. No lymphadenopathy. The thyroid gland is unremarkable. The lung apices are clear. CT/CT cervical spine wo IV con IMPRESSION: Multilevel degenerative changes without overt acute osseous or hardware abnormality. No significant change.
--- NOTE | ~2022-12-06 | CT_ITS ---
EXAMINATION: CT head/brain wo IV con CLINICAL INFORMATION: Reason for Exam AMS COMPARISON: CT brain 12/06/2022 TECHNIQUE: Contiguous axial imaging was performed from the skull base to vertex without intravenous contrast. Sagittal and coronal reformatted images were obtained. This CT examination was performed using dose optimization techniques as appropriate, variously including the following: * Automated exposure control * Adjustment of mA and/or kV according to patient size (this includes techniques or standardized protocols for targeted exams where dose is matched to indication/reason for exam; i.e. extremities or head) Use of iterative reconstruction technique DLP: 757.05 mGy-cm mGy-cm FINDINGS: No acute osseous or soft tissue abnormality. The mastoid air cells and visualized portions of the paranasal sinuses are well aerated. Status post bilateral lens replacements. There is no evidence of acute intracranial hemorrhage or territorial infarction. No abnormal mass effect or midline shift is seen. Cruz to white matter differentiation is well preserved. No extra-axial fluid collections are identified. No hydrocephalus. Proportional prominence of the ventricles and sulcal spaces is consistent with mild volume loss. Patchy periventricular and deep white matter hypoattenuation is consistent with moderate small vessel ischemic changes. CT/CT head/brain wo IV con IMPRESSION: 1. No acute intracranial abnormality.
--- NOTE | ~2022-12-06 | XR_ITS ---
EXAMINATION: XR PELVIS, FEMUR, LEFT CLINICAL INFORMATION: Status post fall with left hip pain. COMPARISON: Left hip radiographs dated 05/30/2022. TECHNIQUE: AP and lateral views of the left femur were obtained along with a single view of the pelvis. FINDINGS: There is acute, mildly displaced subcapital left femoral neck fracture with associated very subtle angulation. Minimal bilateral hip degenerative joint changes are seen. The bony pelvis is intact. The distal left femur is intact. Limited views of the left knee are unremarkable. Moderate to severe atherosclerosis. XR/XR pelvis 1-2V IMPRESSION: 1. Acute, mildly displaced subcapital left femoral neck fracture. 2. Minimal bilateral hip osteoarthritis.
--- NOTE | ~2022-12-06 | XR_ITS ---
EXAMINATION: XR CHEST CLINICAL INFORMATION: Hypoxia COMPARISON: December 06, 2022 and studies dating back to May 30, 2022 TECHNIQUE: AP portable view of the chest was obtained. FINDINGS: Patient status post placement of Mccabe rods within the thoracic spine extending into the upper lumbar spine. Patient also status post cervical spine surgery. There is hazy density seen overlying the mid left chest however the soft tissue density appears to extend outside of the rib cage and is likely related to soft tissue external to the lungs. Old left-sided rib fractures evident with chronic pleural-parenchymal scarring and question minimal effusion. The left-sided soft tissue density could partially be related to layering of pleural fluid collection however no significant collection was identified on study of December 06, 2022. There are old right-sided rib fractures also. Heart normal size. No evidence of pulmonary edema. No pneumothorax appreciated. XR/XR chest 1V IMPRESSION: No significant acute parenchymal disease. Chronic findings as described.
--- NOTE | ~2022-12-06 | XR_ITS ---
EXAMINATION: XR PELVIS, FEMUR, LEFT CLINICAL INFORMATION: Status post fall with left hip pain. COMPARISON: Left hip radiographs dated 05/30/2022. TECHNIQUE: AP and lateral views of the left femur were obtained along with a single view of the pelvis. FINDINGS: There is acute, mildly displaced subcapital left femoral neck fracture with associated very subtle angulation. Minimal bilateral hip degenerative joint changes are seen. The bony pelvis is intact. The distal left femur is intact. Limited views of the left knee are unremarkable. Moderate to severe atherosclerosis. XR/XR femur LT 2V IMPRESSION: 1. Acute, mildly displaced subcapital left femoral neck fracture. 2. Minimal bilateral hip osteoarthritis.
--- NOTE | ~2022-12-06 | CT_ITS ---
EXAMINATION: CT HEAD WITHOUT CONTRAST CLINICAL INFORMATION: Status post fall with head injury, rule out intracranial abnormality. COMPARISON: CT head dated 11/24/2022 and head MRI dated 11/25/2022 TECHNIQUE: Contiguous axial imaging was performed from the skull base to vertex without intravenous administration of contrast. Coronal and sagittal reformatted images were obtained. This CT examination was performed using dose optimization techniques as appropriate, variously including the following: *Automated exposure control *Adjustment of mA and/or kV according to patient size (this includes techniques or standardized protocols for targeted exams where dose is matched to indication/reason for exam; i.e. extremities or head) *Use of iterative reconstruction technique DLP: 765.96, 329.70 mGy-cm FINDINGS: There is mild widening of the cortical sulci and associated ventriculomegaly. The lateral ventricles are symmetrical. The third and fourth ventricles are in their normal midline position. The basilar and prepontine cisterns are unremarkable. Mild periventricular microvascular changes are again seen without significant change. There is no acute intra or extracerebral abnormality. There is no mass effect or midline shift. Sections through the bony calvarium are unremarkable. The orbits are intact. The paranasal sinuses are clear. The mastoid air cells are clear. CT/CT head/brain wo IV con IMPRESSION: No acute intracranial pathology.
--- NOTE | ~2022-12-06 | XR_ITS ---
EXAMINATION: XR PELVIS CLINICAL INFORMATION: Left hemiarthroplasty COMPARISON: 12/06/2022 TECHNIQUE: AP view of the pelvis. FINDINGS: Interval placement of left hip hemiarthroplasty. The prosthetic femoral head is well-positioned within the acetabulum. The cemented femoral stem is well centered in the medullary cavity of the femoral diaphysis. No new fractures. The right hip is normal. Atherosclerotic calcification of iliac and femoral arteries. Skin dolores project lateral to left hip. XR/XR pelvis 1-2V IMPRESSION: Normal alignment at the left hip, status post hemiarthroplasty placement. No periprosthetic fracture.
--- NOTE | 2022-12-06 08:50 | ED_ITS ---
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 Staff reported patient did hit her head but had no loss of consciousness. Patient is complaining of severe left hip and left lower extremity pain. She has no other complaints. Patient received fentanyl 50 mcg IV and oxycodone 5 mg orally prior to arrival with no improvement of her pain. Related Data Home Medications Medication Instructions Recorded Confirmed cholecalciferol (vitamin D3) 25 25 mcg PO DAILY 08/21/22 11/25/22 mcg (1,000 unit) tablet docusate sodium 100 mg capsule 100 mg PO BID 08/21/22 11/25/22 multivitamin 1 tab PO DAILY 08/21/22 11/25/22 ferrous sulfate 325 mg (65 mg 325 mg PO DAILY 10/09/22 11/25/22 iron) tablet amlodipine 5 mg tablet 5 mg PO DAILY 11/24/22 11/25/22 duloxetine 60 mg capsule,delayed 60 mg PO DAILY 11/24/22 11/25/22 release gabapentin 100 mg capsule 100 mg PO TID 11/24/22 11/25/22 metoprolol succinate 25 mg 25 mg PO DAILY 11/24/22 11/25/22 tablet,extended release 24 hr mirabegron 50 mg tablet,extended 50 mg PO DAILY 11/24/22 11/25/22 release 24 hr (Myrbetriq) omeprazole 20 mg capsule,delayed 20 mg PO DAILY@0630 11/24/22 11/25/22 release quetiapine 50 mg tablet 50 mg PO BEDTIME 11/24/22 11/25/22 oxycodone 5 mg tablet 5 mg PO BEDTIME 11/25/22 11/25/22 oxycodone 5 mg tablet 5 mg PO Q6H PRN Breakthrough Pain 11/25/22 11/25/22 Previous Rx's Medication Instructions Recorded ertapenem 1 gram solution for 1 g IV DAILY 10 days #10 ea 11/28/22 injection Allergies Allergy/AdvReac Type Severity Reaction Status Date / Time No Known Allergies Allergy Verified 11/19/22 17:19 Review of Systems Review of Systems: Yes all other systems are reviewed and are negative PMFSH Past Medical History Medical History Alzheimer disease Bilateral flank pain Chronic back pain Dementia HTN (hypertension) Recurrent UTI Squamous cell skin cancer Urge incontinence Surgical History H/O Spinal surgery H/O: hysterectomy Family History Family History Mother Breast cancer Social History Social History Household Members: Unknown / Unable to assess Housing: House Do you presently have visiting nurse or other home services: Yes ([employer] continuous churn antibiotics via midlime) Unable to assess alcohol history related to: Unknown Alcohol intake: never Patient Tobacco Use Status: Former Tobacco user Tobacco use type: Cigarette Smoked in Last 30 Days: No e-Cigarette/Vaping Use: Never Used Second Hand Smoke Exposure: No Use of substances other than those prescribed or required for medical reasons: No Advance Directives: Yes Advance Directives on File: Yes Advance Directives Date on File: 06/01/22 service: No Current occupational status: retired Physical Exam Vital Signs: Vital Signs: Last Vital Signs Temp 98.9 F 12/06/22 09:58 Pulse 116 H 12/06/22 12:00 Resp 22 H 12/06/22 12:00 BP 181/82 H 12/06/22 12:00 Pulse Ox 93 12/06/22 12:00 O2 Del Method Nasal Cannula 12/06/22 12:00 O2 Flow Rate 3 12/06/22 12:00 BMI result Body Mass Index 26.9 Const: Other: Awake, alert, elderly female patient, pleasant, cooperative, oriented to person, was able to tell me that she fell walking back from the bathroom, complaining of severe left hip and left lower leg pain and appears to be in distress with minimal movement of her left leg Orientation/consciousness: oriented to person HEENT: Head: Yes normal to inspection, Yes normocephalic and Yes atraumatic Ears: external ears normal General nose exam: Normal external nose present Face and sinus: Yes normal facial exam Mouth: Normal oral and palatal mucosa present Throat: Yes posterior oropharynx normal Eyes: General: appearance normal, both eyes and all related structures Pupils: Equal, round and reactive pupils present Neck: Neck: Yes normal visual inspection, Yes no lymphadenopathy, Yes trachea midline and Yes supple Chest: Chest palpation & inspection: normal inspection of the chest and normal palpation of entire chest wall Resp: Effort & Inspection: normal respiratory effort and able to speak in complete sentences Auscultation: clear to auscultation bilaterally Cardio: Rate: regular rate Rhythm: regular rhythm Heart sounds: S1 n ormal heart sound present, S2 normal heart sound present and no murmurs GI: Inspection: Yes normal to inspection Palpation (GI): Soft to palpation, nontender and no guarding Auscultation: normal bowel sounds : General: Yes no CVA tenderness Back/Spine/Pelvis: Back: no CVA tenderness Skin: General skin exam: no rashes or lesions noted Neuro: General: oriented to person Cranial nerves: Yes CN's II-XII intact bilaterally and Yes Equal, round and reactive pupils present Cognition (Neuro): normal cognition Motor exam (neuro): Abnormal motor strength present (Strength normal in all extremities except left lower extremity due to pain) Extrem: Other: The patient's left hip is flexed, with minimal movement of her left hip she has severe pain, she has ecchymosis to her left knee with only minimal tenderness, she does have tenderness palpation over her left femur, no skin breakdown or open wounds noted. Psych: Appearance: grossly normal Speech and movement: Normal speech and movement present Attitude: cooperative Medications Administered Discontinued Medications Generic Name Dose Route Start Last Admin Trade Name Ronnellq PRN Reason Stop Dose Admin Morphine Sulfate 4 mg 12/06/22 08:54 12/06/22 09:09 Morphine Sulfate 4 Mg/Ml Cartridge IVPUSH 12/06/22 08:55 4 mg ONCE STA Administration Protocol Morphine Sulfate 4 mg 12/06/22 10:18 12/06/22 10:21 Morphine Sulfate 4 Mg/Ml Cartridge IVPUSH 06/01/23 10:19 4 mg ONCE STA Administration Protocol Morphine Sulfate 4 mg 12/06/22 13:00 12/06/22 13:05 Morphine Sulfate 4 Mg/Ml Cartridge IVPUSH 12/06/22 13:01 4 mg ONCE STA Administration Protocol Medical Decision Making Medical Decision Making [facility] Narrative: 82-year-old female who presents emergency department for evaluation left hip and left lower extremity pain of a fall from standing position at her nursing facility. Patient's exam revealed severe pain with minimal movement of her left hip. Has tenderness palpation of the left hip and palpation over the left femur. I ordered the following evaluation: CT scan head without IV contrast, CT scan cervical spine without IV contrast, chest x-ray one view, left femur x- ray two view, left hip and pelvis x-ray, CBC, CMP, lipase, PT/INR, PTT, urinalysis, 12 EKG. Patient will be kept on a cardiac and O2 saturation monitor. Her pain will be treated with morphine 4 mg IV. 1325: My interpretation patient's laboratory evaluation is as follows: CBC and CMP were normal. PT/INR were normal. Urines pending collection. Twelve EKG was unremarkable. Patient's CT scan of the brain and cervical spine were negative. X-ray of the right hip, pelvis and right femur revealed a left subcapital femoral neck fracture, mildly displaced Patient required morphine 4 mg IV x3 doses, Morales catheter was placed by nursing staff Patient was discussed over tiger text with Dr. Ruffin and with the covering hospitalist, Patient will be admitted for further management. Differential Diagnosis Differential diagnosis includes was not limited to skull fracture, cerebral bleed, concussion, pelvic fracture, left proximal femur fracture, left femur shaft fracture, anemia, electrolyte abnormality Admission/Observation Consideration of admission/observation: Escalation of care including admission/observation considered Consult Healthcare Provider Management of the patient was discussed with: Hospitalist and Manual Training Teacher Lab Data [facility] Lab Attestation statement: I reviewed the patient's lab results. 12/06/22 09:25 12/06/22 09:25 Labs: Lab Results 12/06/22 12/06/22 12/06/22 Range/Units 09:25 09:25 09:25 WBC 9.9 (4.8-10.8) X10*3/uL RBC 3.80 L (4.20-5.50) X10*6/uL Hgb 11.8 L (12.0-16.0) g/dl Hct 35.5 L (37.0-47.0) % MCV 93.4 (80.0-98.0) fL MCH 31.1 (27.0-33.0) pg MCHC 33.2 (31.0-35.0) g/dl RDW 12.9 (11.0-16.0) % Plt Count 222 D (160-400) X10*3/uL MPV 8.7 L (9.4-12.3) fL Immature Gran % (Auto) 0.3 (0.0-0.4) % Neut % (Auto) 87.8 H (45-73) % Lymph % (Auto) 6.3 L (20-40) % Hood % (Auto) 4.9 (2-11) % Eos % (Auto) 0.5 (0-4) % Baso % (Auto) 0.2 (0-2) % Lymph # (Auto) 0.6 L (1.2-4.9) X10*3/uL Hood # (Auto) 0.5 (0.1-1.2) X10*3/uL Eos # (Auto) 0.1 (0.0-0.4) X10*3/uL Baso # (Auto) 0.0 (0.0-0.2) X10*3/uL Abs Immat Gran (auto) 0.03 (0.00-0.03) X10*3/uL Absolute Neuts (auto) 8.7 H (2.0-8.3) x10*3/uL Absolute Nucleated RBC 0.000 (0.0-0.012) X10*3/uL Nucleated RBC % (auto) 0.0 (0.0-0.2) /100WBC PT 11.1 (10.0-13.1) SEC INR 1.0 (0.9-1.1) APTT 31.0 (26.0-36.4) SEC Sodium 140 (135-145) mmol/L Potassium 3.6 (3.3-5.1) mmol/L Chloride 102 (96-108) mmol/L Carbon Dioxide 28 (22-29) mmol/L Anion Gap 14 (12-20) BUN 12 (9-16) mg/dL Creatinine 0.57 (0.5-1.4) mg/dL Estim Creat Clear Calc TNP Estimated GFR > 60 Random Glucose 107 (60-115) mg/dL Calcium 9.1 (8.4-10.2) mg/dL Total Bilirubin 1.0 (0.0-1.0) mg/dL AST 28 (5-31) U/L ALT 26 (0-31) U/L Alkaline Phosphatase 95 (39-117) U/L Total Protein 6.5 (6.5-8.0) g/dL Albumin 4.1 (3.5-5.0) g/dL Lipase 16 (8-78) U/L Blood Type Antibody Screen 12/06/22 Range/Units 11:30 WBC (4.8-10.8) X10*3/uL RBC (4.20-5.50) X10*6/uL Hgb (12.0-16.0) g/dl Hct (37.0-47.0) % MCV (80.0-98.0) fL MCH (27.0-33.0) pg MCHC (31.0-35.0) g/dl RDW (11.0-16.0) % Plt Count (160-400) X10*3/uL MPV (9.4-12.3) fL Immature Gran % (Auto) (0.0-0.4) % Neut % (Auto) (45-73) % Lymph % (Auto) (20-40) % Hood % (Auto) (2-11) % Eos % (Auto) (0-4) % Baso % (Auto) (0-2) % Lymph # (Auto) (1.2-4.9) X10*3/uL Hood # (Auto) (0.1-1.2) X10*3/uL Eos # (Auto) (0.0-0.4) X10*3/uL Baso # (Auto) (0.0-0.2) X10*3/uL Abs Immat Gran (auto) (0.00-0.03) X10*3/uL Absolute Neuts (auto) (2.0-8.3) x10*3/uL Absolute Nucleated RBC (0.0-0.012) X10*3/uL Nucleated RBC % (auto) (0.0-0.2) /100WBC PT (10.0-13.1) SEC INR (0.9-1.1) APTT (26.0-36.4) SEC Sodium (135-145) mmol/L Potassium (3.3-5.1) mmol/L Chloride (96-108) mmol/L Carbon Dioxide (22-29) mmol/L Anion Gap (12-20) BUN (9-16) mg/dL Creatinine (0.5-1.4) mg/dL Estim Creat Clear Calc Estimated GFR Random Glucose (60-115) mg/dL Calcium (8.4-10.2) mg/dL Total Bilirubin (0.0-1.0) mg/dL AST (5-31) U/L ALT (0-31) U/L Alkaline Phosphatase (39-117) U/L Total Protein (6.5-8.0) g/dL Albumin (3.5-5.0) g/dL Lipase (8-78) U/L Blood Type O Positive Antibody Screen NEGATIVE Independent Interpretation I performed an independent interpretation of an: EKG and Plain X-Ray (Left hip, pelvis and left femur) Interpretation: My independent interpretation the patient's 12 EKG done at 09:11 hours is as follows: Sinus rhythm rate of 98, normal ME interval, QRS duration and QTC interval, no ST segment elevation, no ST segment depression, Q-wave in lead 3, no T-wave abnormalities. My independent interpretation of the patient's left hip, left femur and pelvic x-ray is as follows: Left subcapital femoral neck fracture, mildly displaced Radiology Impression Discussion of test interpretation with radiology: I have reviewed the radiologist's reading. Radiologist Impression: XR pelvis 1-2V IMPRESSION: 1. Acute, mildly displaced subcapital left femoral neck fracture. 2. Minimal bilateral hip osteoarthritis. Dictated By:Umer Santiago MD XR femur LT 2V IMPRESSION: 1. Acute, mildly displaced subcapital left femoral neck fracture . 2. Minimal bilateral hip osteoarthritis. Dictated By:Umer Santiago MD XR chest 1V IMPRESSION: 1. Interval decrease in left pleural effusion with residual minimal pleural scarring versus very small pleural effusion. 2. Multilevel healed left rib fractures similar to the previous study without overt acute fracture. Dictated By:Umer Santiago MD CT cervical spine wo IV con IMPRESSION: Multilevel degenerative changes without overt acute osseous or hardware abnormality. No significant change. Dictated By:Umer Santiago MD CT head/brain wo IV con IMPRESSION: No acute intracranial pathology. Dictated By:Umer Santiago MD Discharge Plan Discharge Patient Disposition: Admitted As Inpatient Prescriptions: No Action multivitamin Tablet 1 tab PO DAILY docusate sodium 100 mg Capsule 100 mg PO BID cholecalciferol (vitamin D3) 25 mcg (1,000 unit) Tablet 25 mcg PO DAILY ferrous sulfate 325 mg (65 mg iron) Tablet 325 mg PO DAILY amlodipine 5 mg tablet 5 mg PO DAILY omeprazole 20 mg capsule,delayed release(DR/EC) 20 mg PO DAILY@0630 gabapentin 100 mg capsule 100 mg PO TID metoprolol succinate 25 mg tablet extended release 24 hr 25 mg PO DAILY duloxetine 60 mg capsule,delayed release(DR/EC) 60 mg PO DAILY quetiapine 50 mg tablet 50 mg PO BEDTIME Myrbetriq 50 mg tablet extended release 24 hr 50 mg PO DAILY oxycodone 5 mg tablet 5 mg PO Q6H PRN (Reason: Breakthrough Pain) oxycodone 5 mg tablet 5 mg PO BEDTIME ertapenem 1 gram recon soln 1 g IV DAILY 10 Days Qty: 10 0RF
[2022-12-06 08:51] VITALS: BP 192/81; PULSE 99; RESP 20; TEMP 36.8; O2SAT 92
--- NOTE | 2022-12-06 08:54 | ECG_ITS ---
Test Reason : FALL Blood Pressure : / mmHG Vent. Rate : 098 BPM Atrial Rate : 098 BPM P-R Int : 198 ms QRS Dur : 084 ms QT Int : 342 ms P-R-T Axes : 053 004 023 degrees QTc Int : 436 ms Sinus rhythm with occasional Premature ventricular complexes Nonspecific ST abnormality Abnormal ECG When compared with ECG of 24-NOV-2022 18:12, Premature ventricular complexes are now Present Referred By: Anjum De La Torre Electronically Signed By:CHARLEY DENNIS MD
[2022-12-06] MEDS: Morphine Sulfate 4 MG/ML CARTRIDGE IVPUSH ×3 (09:09→13:05)
[2022-12-06 09:28] LABS: MANUAL DIFF FLAG NO
[2022-12-06 09:31] LABS: Basophils Percent Auto 0.2 % (0-2); Eosinophils Absolute Auto 0.1 X10*3/uL (0.0-0.4); Eosinophils Percent Auto 0.5 % (0-4); Hematocrit 35.5 % (37.0-47.0); Hemoglobin 11.8 g/dl (12.0-16.0); Imm Gran Abs Auto 0.03 X10*3/uL (0.00-0.03); Imm Gran Pct Auto 0.3 % (0.0-0.4); Lymphocytes Absolute Auto 0.6 X10*3/uL (1.2-4.9); Lymphocytes Percent Auto 6.3 % (20-40); Mean Corpuscular HGB Conc 33.2 g/dl (31.0-35.0); Mean Corpuscular Hemoglobin 31.1 pg (27.0-33.0); Mean Corpuscular Volume 93.4 fL (80.0-98.0); Mean Platelet Volume 8.7 fL (9.4-12.3); Monocytes Absolute Auto 0.5 X10*3/uL (0.1-1.2); Monocytes Percent Auto 4.9 % (2-11); Neutrophils Absolute Auto 8.7 x10*3/uL (2.0-8.3); Neutrophils Percent Auto 87.8 % (45-73); Platelet Count 222 X10*3/uL (160-400); Red Cell Distribution Width 12.9 % (11.0-16.0); White Blood Count 9.9 X10*3/uL (4.8-10.8)
[2022-12-06 09:39] LABS: Prothrombin Time 11.1 SEC (10.0-13.1)
[2022-12-06 09:50] LABS: Alanine Aminotransferase 26 U/L (0-31); Albumin Level 4.1 g/dL (3.5-5.0); Alkaline Phosphatase 95 U/L (39-117); Anion Gap 14 (12-20); Aspartate Amino Transferase 28 U/L (5-31); Blood Urea Nitrogen 12 mg/dL (9-16); Calcium 9.1 mg/dL (8.4-10.2); Carbon Dioxide 28 mmol/L (22-29); Chloride 102 mmol/L (96-108); Estimated Glomerular Filt Rate > 60; Glucose Random 107 mg/dL (60-115); Lipase 16 U/L (8-78); Potassium 3.6 mmol/L (3.3-5.1); Sodium 140 mmol/L (135-145); Total Protein 6.5 g/dL (6.5-8.0)
[2022-12-06 09:58] VITALS: BP 192/81; PULSE 103; RESP 18; TEMP 37.2; O2SAT 96; BMI 26.9
--- NOTE | 2022-12-06 11:21 | PC.NURSE ---
pt AOx3, presents to ER post fall. left hip inwardly rotated and shortened. medicated for pain
[2022-12-06 12:00] VITALS: BP 181/82; PULSE 116; RESP 22; O2SAT 93
--- NOTE | 2022-12-06 12:51 | PC.NURSE ---
during vitals check pt found to be hypoxic ~85. Pt placed pt on 2L O2 and forehead sensor. O2 currently at 95% 2L
--- NOTE | 2022-12-06 14:02 | PHA.MEDREC ---
Pharmacy Consult ? Medication Reconciliation Pharmacy has completed the medication reconciliation. Patient had a list from [facility].
[2022-12-06 14:53] VITALS: BP 141/67; PULSE 94; RESP 15; O2SAT 99
[2022-12-06] MEDS: Morphine Sulfate 2 MG/ML CARTRIDGE IVPUSH (15:07)
--- NOTE | 2022-12-06 15:12 | PC.NURSE ---
pt medicated for pain per MAR. O2 sat 95%+ on 5L NC. will CTM
--- NOTE | 2022-12-06 15:58 | P.HPHOSP_ITS ---
History of Present Illness Date of Service: 12/06/22 Chief Complaint: fall, left hip pain Ms Briones is an 82yo F resident of an assisted living [facility] care unit with a history of Alzheimer-type dementia, chronic back pain s/p spinal fusion, HTN, SVT, and recurrent UTIs who was recently admitted [place] [facility] [place] for multidrug-resistant Eneterobacter cloacae UTI treated with cefepime, then re- admitted here 11/24-11/28 for encephalopathy attributed to the cefepime. Ultimately, her UTI was treated with ertapenem. She just progressed out of a wheelchair 2 days ago but then fell from a standing position today. She hit her head but denies any LOC. She developed immediate severe pain of the left hip. She doesn't remember if she was dizzy or lighteaded before the fall; she thinks she was more weak than anything else. She denies headache. She denies chest pain or palpitations. No dyspnea at rest or exertion. CT of the head and C- spine were negative for acute pathology. X-ray showed an acute, displaced subcapital left femoral neck fracture. 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 antibiotics via midlime) Unable to assess alcohol history related to: Unknown Alcohol intake: never Patient Tobacco Use Status: Former Tobacco user Tobacco use type: Cigarette Smoked in Last 30 Days: No e-Cigarette/Vaping Use: Never Used Second Hand Smoke Exposure: No Use of substances other than those prescribed or required for medical reasons: No Advance Directives: Yes Advance Directives on File: Yes Advance Directives Date on File: 06/01/22 service: No Current occupational status: retired Meds Allergies Allergy/AdvReac Type Severity Reaction Status Date / Time No Known Allergies Allergy Verified 11/19/22 17:19 Active Medications: Current Medications Ascorbic Acid (Ascorbic Acid 500 Mg Tablet) 500 mg PO DAILY [facility] Docusate Sodium (Docusate Sodium 100 Mg Capsule) 100 mg PO BID [facility] Duloxetine HCl (Duloxetine Hcl 60 Mg Capsule.) 60 mg PO DAILY [facility] Ferrous Sulfate (Ferrous Sulfate 324 Mg Tablet.) 324 mg PO DAILY [facility] Gabapentin (Gabapentin 100 Mg Capsule) 100 mg PO TID [facility] Metoprolol Succinate (Metoprolol Succinate Er 25 Mg Tab.Er.24h) 25 mg PO DAILY [facility]; Protocol Metoprolol Tartrate (Metoprolol Tartrate 50 Mg Tablet) 50 mg PO DAILY PRN; Protocol PRN Reason: Tachycardia Mirabegron (Mirabegron 50 Mg Tab.Er.24h) 50 mg PO DAILY [facility] Multivitamins/Vitamin C (Multivitamin Tablet) 1 tab PO DAILY [facility] Nitrofurantoin Macrocrystals (Nitrofurantoin Macrocrystal 50 Mg Capsule) 50 mg PO BEDTIME [facility] Omeprazole (Omeprazole 20 Mg Capsule.) 20 mg PO DAILY@0630 [facility] Oxycodone HCl (Oxycodone Hcl Immed Release 5 Mg Tablet) 5 mg PO BEDTIME [facility] Oxycodone HCl (Oxycodone Hcl Immed Release 5 Mg Tablet) 5 mg PO Q6H PRN PRN Reason: [facility] Consult (Consult Rx Perform Med Rec) 1 each MISCELLANE ONCE PRN PRN Reason: Consult order Quetiapine Fumarate (Quetiapine Fumarate 50 Mg Tablet) 50 mg PO BEDTIME [facility] Senna (Sennosides 8.6 Mg Tablet) 8.6 mg PO DAILY PRN PRN Reason: Constipation Vitamin D (Cholecalciferol (Vitamin D3) 25 Mcg Tablet) 25 mcg PO DAILY [facility] Home Medications Medication Instructions Recorded Confirmed Last Taken Type cholecalciferol (vitamin D3) 25 25 mcg PO DAILY 08/21/22 12/06/22 Unknown History mcg (1,000 unit) tablet docusate sodium 100 mg capsule 100 mg PO BID 08/21/22 12/06/22 Unknown History multivitamin 1 tab PO DAILY 08/21/22 12/06/22 Unknown History ferrous sulfate 325 mg (65 mg 325 mg PO DAILY 10/09/22 12/06/22 Unknown History iron) tablet amlodipine 5 mg tablet 5 mg PO DAILY 11/24/22 12/06/22 Unknown History duloxetine 60 mg capsule,delayed 60 mg PO DAILY 11/24/22 12/06/22 Unknown History release gabapentin 100 mg capsule 100 mg PO TID 11/24/22 12/06/22 Unknown History metoprolol succinate 25 mg 25 mg PO DAILY 11/24/22 12/06/22 Unknown History tablet,extended release 24 hr mirabegron 50 mg tablet,extended 50 mg PO DAILY 11/24/22 12/06/22 Unknown History release 24 hr (Myrbetriq) omeprazole 20 mg capsule,delayed 20 mg PO DAILY@0630 11/24/22 12/06/22 Unknown History release quetiapine 50 mg tablet 50 mg PO BEDTIME 11/24/22 12/06/22 Unknown History oxycodone 5 mg tablet 5 mg PO BEDTIME 11/25/22 12/06/22 Unknown History oxycodone 5 mg tablet 5 mg PO Q6H PRN Breakthrough Pain 11/25/22 12/06/22 Unknown History acetaminophen 500 mg tablet 1,000 mg PO Q6H PRN Pain 12/06/22 12/06/22 Unknown History ascorbic acid (vitamin C) 500 mg 500 mg PO DAILY 12/06/22 12/06/22 Unknown History tablet (Vitamin C) metoprolol tartrate 50 mg tablet 50 mg PO DAILY PRN Tachycardia 12/06/22 12/06/22 Unknown History nitrofurantoin macrocrystal 50 mg 50 mg PO BEDTIME 12/06/22 12/06/22 Unknown History capsule sennosides 8.6 mg tablet (senna) 8.6 mg PO DAILY PRN Constipation 12/06/22 12/06/22 Unknown History Physical Exam Vital Signs and Narrative: Vital Signs: Last Vital Signs Temp 98.9 F 12/06/22 09:58 Pulse 94 12/06/22 14:53 Resp 15 12/06/22 14:53 BP 141/67 H 12/06/22 14:53 Pulse Ox 99 12/06/22 14:53 O2 Del Method Nasal Cannula 12/06/22 14:53 O2 Flow Rate 4 12/06/22 14:53 BMI result Body Mass Index 26.9 Gen: in pain HEENT: sclera anicteric, moist mucus membranes Neck: supple Lungs: clear to auscultation bilaterally Heart: regular rate and rhythm, no murmurs Abd: soft, non-tender, non-distended Ext: L hip flexed + externally rotated, exquisitely painful with any manipulation Skin: warm/well-perfused Neuro: alert and oriented to self + place Psych: appropriate affect Results Labs 12/06/22 09:25 12/06/22 09:25 Labs: Laboratory Results - last 24 hr 12/06/22 12/06/22 12/06/22 09:25 09:25 09:25 MCV 93.4 MCH 31.1 MCHC 33.2 RDW 12.9 Plt Count 222 D MPV 8.7 L Immature Gran % (Auto) 0.3 Neut % (Auto) 87.8 H Lymph % (Auto) 6.3 L [place] % (Auto) 4.9 Eos % (Auto) 0.5 Baso % (Auto) 0.2 Lymph # (Auto) 0.6 L [place] # (Auto) 0.5 Eos # (Auto) 0.1 Baso # (Auto) 0.0 Abs Immat Gran (auto) 0.03 Absolute Neuts (auto) 8.7 H Absolute Nucleated RBC 0.000 Nucleated RBC % (auto) 0.0 PT 11.1 INR 1.0 APTT 31.0 Anion Gap 14 Estim Creat Clear Calc TNP Estimated GFR > 60 Random Glucose 107 Calcium 9.1 Total Bilirubin 1.0 AST 28 ALT 26 Alkaline Phosphatase 95 Total Protein 6.5 Albumin 4.1 Lipase 16 Blood Type Antibody Screen 12/06/22 11:30 MCV MCH MCHC RDW Plt Count MPV Immature Gran % (Auto) Neut % (Auto) Lymph % (Auto) [place] % (Auto) Eos % (Auto) Baso % (Auto) Lymph # (Auto) [place] # (Auto) Eos # (Auto) Baso # (Auto) Abs Immat Gran (auto) Absolute Neuts (auto) Absolute Nucleated RBC Nucleated RBC % (auto) PT INR APTT Anion Gap Estim Creat Clear Calc Estimated GFR Random Glucose Calcium Total Bilirubin AST ALT Alkaline Phosphatase Total Protein Albumin Lipase Blood Type O Positive Antibody Screen NEGATIVE Imaging Radiologist's Impressions: Impressions Chest X-Ray 12/06/22 09:52 IMPRESSION: 1. Interval decrease in left pleural effusion with residual minimal pleural scarring versus very small pleural effusion. 2. Multilevel healed left rib fractures similar to the previous study without overt acute fracture. Femur X-Ray 12/06/22 09:52 IMPRESSION: 1. Acute, mildly displaced subcapital left femoral neck fracture. 2. Minimal bilateral hip osteoarthritis. Pelvis X-Ray 12/06/22 09:52 IMPRESSION: 1. Acute, mildly displaced subcapital left femoral neck fracture. 2. Minimal bilateral hip osteoarthritis. Cervical Spine CT 12/06/22 10:14 IMPRESSION: Multilevel degenerative changes without overt acute osseous or hardware abnormality. No significant change. Head CT 12/06/22 10:14 IMPRESSION: No acute intracranial pathology. Assessment and Plan (1) Closed displaced fracture of left femoral neck: Status: Acute Plan 82yo F resident of an assisted living memory care unit with a history of Alzheimer-type dementia, chronic back pain s/p spinal fusion, HTN, SVT, recurrent UTI including most recently MDR-Enterobacter cloacae, and recent cefepime-induced encephalopathy presenting with acute L hip pain after a fall from a standing position. She is found to have a mildly displaced subcapital L femur fracture. # Femur fracture - Admit to [facility]. Orthopedics consult. NPO after midnight for operative intervention. She has no history of AK, CAD, valvular heart disease, or CVA. Not diabetic and no CKD. No severe pulmonary disease. Revised Cardiac Risk Index of 1. She does take metoprolol standing + prn for SVT and we will obtain a preoperative echocardiogram. She is otherwise at low cardiac risk for this emergency surgery. # Hx SVT - Standing + prn metoprolol # HTN - Hold amlodipine for now; continue metoprolol # Chronic back pain - Gabapentin + oxycodone # Alzheimer dementia - Quetipine at bedtime # Recurrent UTI - Suppressive nitrofurantoin # VTE ppx: SCDs, postoperative LMWH # Dispo: will need STR # Code: DNR/DNI per [facility] + confirmed with pt and HCP her daughter Bebe I anticipate that the patient will stay at least 2 midnights as an inpatient in the hospital due to the above reasons. It is neither reasonable nor safe to care for them in a less acute setting. Time Spent With Patient Time: Total time managing care of this patient today ____ minutes. Quality Stroke Does the patient have a stroke diagnosis?: No VTE Prior VTE?: No VTE Risk Level:: Medical - moderate - high VTE Device Contraindication: N/A - Device Ordered VTE Drug Contraindication: N/A - Med Ordered
[2022-12-06 16:53] VITALS: BP 174/96; PULSE 94; RESP 16; O2SAT 100
[2022-12-06] MEDS: 0.9 % Sodium Chloride Flush 3 ML SYRINGE IVFLUSH (17:43)
--- NOTE | 2022-12-06 17:46 | PC.NURSE ---
awaiting call from MS RN for report
[2022-12-06 19:30] VITALS: BP 182/104; PULSE 89; RESP 18; TEMP 37; O2SAT 94
[2022-12-06] MEDS: HYDROmorphone HCl 0.5 MG/0.5 ML SYRINGE IVPUSH (19:52)
[2022-12-06] MEDS: Docusate Sodium 100 MG CAPSULE PO (19:55)
[2022-12-06] MEDS: Gabapentin 100 MG CAPSULE PO (19:55)
[2022-12-06] MEDS: oxyCODONE HCl Immed Release 5 MG TABLET PO (19:55)
[2022-12-06] MEDS: QUEtiapine Fumarate 50 MG TABLET PO (19:55)
[2022-12-06] MEDS: nitrofurantoin macrocrystaL 50 MG CAPSULE PO (21:11)
--- NOTE | 2022-12-06 21:32 | PM.CNOR ---
History of Present Illness HPI Consult date: 12/06/22 Chief complaint: hip fracture Narrative: poor historian. fell [place] and brought by EMS to [facility] [place] [facility] where radiographs revealed a left hip fracture. C/o pain. Alert to place only. Review of Systems Review of Systems: Complains of hip pain only. 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 antibiotics via midlime) Unable to assess alcohol history related to: Unknown Alcohol intake: never Patient Tobacco Use Status: Former Tobacco user Tobacco use type: Cigarette e-Cigarette/Vaping Use: Never Used Second Hand Smoke Exposure: No Advance Directives Date on File: 06/01/22 service: No Current occupational status: retired Meds Allergies Allergy/AdvReac Type Severity Reaction Status Date / Time No Known Allergies Allergy Verified 11/19/22 17:19 Active Medications: Current Medications Acetaminophen (Acetaminophen 325 Mg Tablet) 650 mg PO Q6H PRN PRN Reason: Pain, Mild (Pain Scale 1-3) Ascorbic Acid (Ascorbic Acid 500 Mg Tablet) 500 mg PO DAILY [facility] Docusate Sodium (Docusate Sodium 100 Mg Capsule) 100 mg PO BID [facility] Last Admin: 12/06/22 19:55 Dose: 100 mg Duloxetine HCl (Duloxetine Hcl 60 Mg Capsule.) 60 mg PO DAILY [facility] Ferrous Sulfate (Ferrous Sulfate 324 Mg Tablet.) 324 mg PO DAILY [facility] Gabapentin (Gabapentin 100 Mg Capsule) 100 mg PO TID [facility] Last Admin: 12/06/22 19:55 Dose: 100 mg Hydromorphone HCl (Hydromorphone Hcl 0.5 Mg/0.5 Ml Syringe) 0.5 mg IVPUSH Q4H PRN; Protocol PRN Reason: severe pain Last Admin: 12/06/22 19:52 Dose: 0.5 mg Metoprolol Succinate (Metoprolol Succinate Er 25 Mg Tab.Er.24h) 25 mg PO DAILY [facility]; Protocol Metoprolol Tartrate (Metoprolol Tartrate 50 Mg Tablet) 50 mg PO DAILY PRN; Protocol PRN Reason: Tachycardia Mirabegron (Mirabegron 50 Mg Tab.Er.24h) 50 mg PO DAILY [facility] Multivitamins/Vitamin C (Multivitamin Tablet) 1 tab PO DAILY [facility] Naloxone HCl (Naloxone Hcl 0.4 Mg/Ml Vial) 0.1 mg IVPUSH Q2M PRN PRN Reason: Respiratory Rate < 10 Nitrofurantoin Macrocrystals (Nitrofurantoin Macrocrystal 50 Mg Capsule) 50 mg PO BEDTIME [facility] Last Admin: 12/06/22 21:11 Dose: 50 mg Omeprazole (Omeprazole 20 Mg Capsule.Dr) 20 mg PO DAILY@0630 [facility] Ondansetron HCl (Ondansetron Hcl 4 Mg/2 Ml Vial) 4 mg IVPUSH Q8H PRN PRN Reason: Nausea and Vomiting Oxycodone HCl (Oxycodone Hcl Immed Release 5 Mg Tablet) 5 mg PO BEDTIME [facility] Last Admin: 12/06/22 19:55 Dose: 5 mg Oxycodone HCl (Oxycodone Hcl Immed Release 5 Mg Tablet) 5 mg PO Q6H PRN PRN Reason: [facility] Consult (Consult Rx Perform Med Rec) 1 each MISCELLANE ONCE PRN PRN Reason: Consult order Quetiapine Fumarate (Quetiapine Fumarate 50 Mg Tablet) 50 mg PO BEDTIME [facility] Last Admin: 12/06/22 19:55 Dose: 50 mg Senna (Sennosides 8.6 Mg Tablet) 8.6 mg PO DAILY PRN PRN Reason: Constipation Sodium Chloride (0.9 % Sodium Chloride Flush 3 Ml Syringe) 3 ml IVFLUSH QSHIFT [facility] Last Admin: 12/06/22 17:43 Dose: 3 ml Vitamin D (Cholecalciferol (Vitamin D3) 25 Mcg Tablet) 25 mcg PO DAILY [facility] Home Medications Medication Instructions Recorded Confirmed Last Taken Type cholecalciferol (vitamin D3) 25 25 mcg PO DAILY 08/21/22 12/06/22 Unknown History mcg (1,000 unit) tablet docusate sodium 100 mg capsule 100 mg PO BID 08/21/22 12/06/22 Unknown History multivitamin 1 tab PO DAILY 08/21/22 12/06/22 Unknown History ferrous sulfate 325 mg (65 mg 325 mg PO DAILY 10/09/22 12/06/22 Unknown History iron) tablet amlodipine 5 mg tablet 5 mg PO DAILY 11/24/22 12/06/22 Unknown History duloxetine 60 mg capsule,delayed 60 mg PO DAILY 11/24/22 12/06/22 Unknown History release gabapentin 100 mg capsule 100 mg PO TID 11/24/22 12/06/22 Unknown History metoprolol succinate 25 mg 25 mg PO DAILY 11/24/22 12/06/22 Unknown History tablet,extended release 24 hr mirabegron 50 mg tablet,extended 50 mg PO DAILY 11/24/22 12/06/22 Unknown History release 24 hr (Myrbetriq) omeprazole 20 mg capsule,delayed 20 mg PO DAILY@0630 11/24/22 12/06/22 Unknown History release quetiapine 50 mg tablet 50 mg PO BEDTIME 11/24/22 12/06/22 Unknown History oxycodone 5 mg tablet 5 mg PO BEDTIME 11/25/22 12/06/22 Unknown History oxycodone 5 mg tablet 5 mg PO Q6H PRN Breakthrough Pain 11/25/22 12/06/22 Unknown History acetaminophen 500 mg tablet 1,000 mg PO Q6H PRN Pain 12/06/22 12/06/22 Unknown History ascorbic acid (vitamin C) 500 mg 500 mg PO DAILY 12/06/22 12/06/22 Unknown History tablet (Vitamin C) metoprolol tartrate 50 mg tablet 50 mg PO DAILY PRN Tachycardia 12/06/22 12/06/22 Unknown History nitrofurantoin macrocrystal 50 mg 50 mg PO BEDTIME 12/06/22 12/06/22 Unknown History capsule sennosides 8.6 mg tablet (senna) 8.6 mg PO DAILY PRN Constipation 12/06/22 12/06/22 Unknown History Physical Exam Vital Signs: Vital Signs: Last Vital Signs Temp 98.6 F 12/06/22 19:30 Pulse 89 12/06/22 19:30 Resp 18 12/06/22 19:30 BP 182/104 H 12/06/22 19:30 Pulse Ox 94 12/06/22 19:30 O2 Del Method Nasal Cannula 12/06/22 19:30 O2 Flow Rate 4 12/06/22 19:30 BMI result Body Mass Index 26.9 Extrem: Other: moving toes and severe pain with log roll. DP+2. Foot warm and well perfused. Skin intact over left hip Results Labs 12/06/22 09:25 12/06/22 09:25 Labs: Abnormal lab results 12/06/22 Range/Units 09:25 RBC 3.80 L (4.20-5.50) X10*6/uL Hgb 11.8 L (12.0-16.0) g/dl Hct 35.5 L (37.0-47.0) % MPV 8.7 L (9.4-12.3) fL Neut % (Auto) 87.8 H (45-73) % Lymph % (Auto) 6.3 L (20-40) % Lymph # (Auto) 0.6 L (1.2-4.9) X10*3/uL Absolute Neuts (auto) 8.7 H (2.0-8.3) x10*3/uL H & H 12/06/22 Range/Units 09:25 Hgb 11.8 L (12.0-16.0) g/dl Hct 35.5 L (37.0-47.0) % Coagulation 12/06/22 Range/Units 09:25 INR 1.0 (0.9-1.1) All other labs normal. Diagnostic results Hip x-ray: image reviewed (Displaced left femoral neck fracture) Assessment and Plan (1) Closed displaced fracture of left femoral neck: Status: Acute Plan 82 yo F with h/o AD and left sided weakness with a displaced femoral neck fracture. Supposedly is ambulatory at baseline but was not able to speak with family yet. Will inquire and if ambulatory likely will proceed forward with hemiarthroplasty is medically cleared. NPO p midnight and will speak with family in AM. Time Spent With Patient Time: Total time managing care of this patient today __15__ minutes. Procedures Date of Service Date of Service: 12/06/22
[2022-12-06 22:00] VITALS: BMI 26.8
[2022-12-07] VITALS (16 sets, daily range): BP systolic 100–170; BP diastolic 42–93; PULSE 74–113; RESP 12–20; TEMP 36.2–37.7; O2SAT 91–100
[2022-12-07] MEDS: HYDROmorphone HCl 0.5 MG/0.5 ML SYRINGE IVPUSH ×2 (00:11→04:21)
[2022-12-07] MEDS: oxyCODONE HCl Immed Release 5 MG TABLET PO ×2 (01:56→22:14)
[2022-12-07] MEDS: Omeprazole 20 MG CAPSULE.DR PO (05:54)
[2022-12-07 06:31] LABS: MANUAL DIFF FLAG NO
[2022-12-07 06:48] LABS: Basophils Absolute Auto 0.1 X10*3/uL (0.0-0.2); Basophils Percent Auto 0.7 % (0-2); Eosinophils Absolute Auto 0.2 X10*3/uL (0.0-0.4); Eosinophils Percent Auto 2.2 % (0-4); Hematocrit 35.9 % (37.0-47.0); Hemoglobin 11.2 g/dl (12.0-16.0); Imm Gran Abs Auto 0.03 X10*3/uL (0.00-0.03); Imm Gran Pct Auto 0.3 % (0.0-0.4); Lymphocytes Absolute Auto 0.9 X10*3/uL (1.2-4.9); Lymphocytes Percent Auto 9.1 % (20-40); Mean Corpuscular HGB Conc 31.2 g/dl (31.0-35.0); Mean Corpuscular Hemoglobin 30.9 pg (27.0-33.0); Mean Corpuscular Volume 98.9 fL (80.0-98.0); Mean Platelet Volume 9.5 fL (9.4-12.3); Monocytes Absolute Auto 0.6 X10*3/uL (0.1-1.2); Monocytes Percent Auto 5.9 % (2-11); Neutrophils Percent Auto 81.8 % (45-73); Platelet Count 196 X10*3/uL (160-400); Red Blood Count 3.63 X10*6/uL (4.20-5.50); Red Cell Distribution Width 13.2 % (11.0-16.0); White Blood Count 9.8 X10*3/uL (4.8-10.8)
--- NOTE | 2022-12-07 07:00 | CA_ITS ---
Transthoracic Echocardiogram Patient (Last, First, Middle): Mackenzie Briones, Gender: Female Date of : 1940 Age: 82 Procedure Date: 12/07/2022 Procedure Type: Transthoracic Echocardiogram Location: [facility] Height: 165.1 cm Weight: 73.03 kg BSA: 1.80 m2 Heart Rate: bpm BP: 141 / 67 mmHg Instrumentation Instructor: Referring MD: Regis Mann MD Record Clerk Salesperson: Tera Carmichael MD Symptoms: Hx SVT, pl eff [resolving]- preop for OR 12/07/22 Study Quality: Adequate ECG Rhythm: Sinus Conclusions: - 1. Normal LV systolic function with LVEF of 60-65% with mild LVH with impaired relaxation filling pattern 2. Cardiac valvular Dopplers within normal limits 3. Moderately elevated right ventricular systolic pressure 4. No gross pericardial effusion Findings Left Ventricle Normal left ventricular size and systolic function. There is mildly increased left ventricular wall thickness. The visually estimated ejection fraction is between 60-65%. Spectral Doppler is indicative of an impaired relaxation filling pattern. E/E prime ratio is between 8 and 15 consistent with indeterminate filling pressures. Right Ventricle Normal right ventricular cavity size and systolic function. Atria The left atrium is normal in size. There is no evidence of interatrial shunt. The right atrium is normal in size. Aortic Valve Normal aortic valve structure and function. There is no aortic valve stenosis. There is no aortic valve regurgitation. Mitral Valve There is mild anterior and posterior mitral leaflet thickening. There is mild mitral annular calcification. There is trace mitral valve regurgitation. There is no mitral valve stenosis. Pulmonic Valve The pulmonic valve is likely normal. There is trace to mild pulmonic valve regurgitation. Tricuspid Valve Normal tricuspid valve structure. There is mild to moderate tricuspid valve regurgitation. The right ventricular systolic pressure is normal. Normal right atrial pressure. Moderate pulmonary hypertension is present. Great Vessels All visible segments of the aorta are normal in size. The pulmonary artery was not well visualized. Venous The inferior vena cava is normal in size and collapses greater than 50% with inspiration. Pericardium/Pleural There is no evidence of pericardial effusion. Prior Study Comparison No prior study available for comparison. Measurements 2D Linear Measurements IVSd: 1.35 0.6-0.9/0.6-1.0 cm LVIDd: 2.52 3.9-5.3/4.2-5.9 cm LVIDd Index: 1.40 2.4-3.2/2.2-3.1 cm/m2 LVIDs: 1.90 2.0-3.6 cm LVPWd: 1.30 0.7-1.1 cm Ao Root: 3.10 2.1-3.5 cm LA Diam: 2.90 2.7-3.8/3.0-4.0 cm LAIDs Index: 1.61 1.5-2.3 cm/m2 LV Mass: 127.07 67-162/88-224 g LV Mass Index: 70.60 43-95/49-115 g/m2 LVOT Diam: 2.00 3.0+(-)1.3 cm Mitral Valve MV Pk E: 0.75 MV PK A: 0.85 MV Decel Time: 126.00 E/A: 0.90 E'Lateral: 8.92 E'Medial: 6.74 E/E' Med: 11.20 E/E' Lat: 8.50 PHT: 37.00 MVA PHT: 5.95 Decel [place]: 6.01 Aortic Valve AoV Pk Matt: 1.28 AoV Mn Matt: 0.90 AoV VTI: 0.27 AoV Pk Grad: 7.00 Aov Mn Grad: 4.00 REGINALDO Cont.VTI: 2.61 LVOT LVOT Pk Matt: 1.01 LVOT Mn Matt: 0.76 LVOT VTI: 0.23 LVOT Pk Grad: 4.00 LVOT Mn Grad: 3.00 LVOT Diam: 2.00 LVOT Area: 3.14 Diastolic Function MV Pk E: 0.75 MV Pk A: 0.85 E/A: 0.90 E'Medial: 6.74 E/E' Med: 11.20 E' Laterial: 8.92 E/E' Lat: 8.50 Right Ventricle TAPSE (mm): 26.30 TVS' Matt: 13.50 Tricuspid Valve TR Pk Matt: 3.44 TR Pk Grad: 47.00 RA Press: 3.00 RVSP: 50.00 Great Vessels Aorta Ao Root-2D: 3.10 2.0-3.7 cm Ao Asc: 3.50 2.1-3.4 cm Pulmonary Valve PV Pk Matt: 0.85 Peak PV Grad: 3.00 Updated in Other Vendor System with Status of Final Tera Carmichael MD electronically signed on 12/07/2022 3:25:09 PM with status of Final
[2022-12-07 07:10] LABS: Anion Gap 16 (12-20); Blood Urea Nitrogen 15 mg/dL (9-16); Calcium 8.8 mg/dL (8.4-10.2); Carbon Dioxide 24 mmol/L (22-29); Chloride 105 mmol/L (96-108); Creatinine Clr Calc Pharmacy 68.9; Estimated Glomerular Filt Rate > 60; Glucose Random 100 mg/dL (60-115); Potassium 4.2 mmol/L (3.3-5.1); Sodium 141 mmol/L (135-145)
--- NOTE | 2022-12-07 08:42 | MHC.CM.PN ---
12/07/22 08:38 - Case Mgmt [id number] : 1940 Patient Age: 82 PT is recommending that Patient [facility]; CM has initiated and will follow for dc planning. Patient was recently active with [facility]. HCP is on file and PCP is Dr. Thelma Obrien. Patient has received Pfizer/Covid vax x3 and IMM to be addressed with family (Alzheimer's Dementia & Metabolic Encephalopathy). Initialized on 12/07/22 08:38 - END OF NOTE
[2022-12-07] MEDS: amLODIPine Besylate 5 MG TABLET PO (08:47)
[2022-12-07] MEDS: Gabapentin 100 MG CAPSULE PO ×2 (08:47→22:14)
[2022-12-07] MEDS: DULoxetine HCl 60 MG CAPSULE.DR PO (08:47)
[2022-12-07] MEDS: Mirabegron 50 MG TAB.ER.24H PO (08:47)
[2022-12-07] MEDS: Multivitamin TABLET 1 TAB PO (08:47)
[2022-12-07] MEDS: Metoprolol Succinate ER 25 MG TAB.ER.24H PO (08:47)
[2022-12-07] MEDS: Ferrous Sulfate 324 MG TABLET.DR PO (08:47)
[2022-12-07] MEDS: Docusate Sodium 100 MG CAPSULE PO ×2 (08:47→22:14)
[2022-12-07] MEDS: Cholecalciferol (Vitamin D3) 25 MCG TABLET PO (08:48)
[2022-12-07] MEDS: 0.9 % Sodium Chloride Flush 3 ML SYRINGE IVFLUSH ×2 (08:48→22:17)
[2022-12-07] MEDS: Ascorbic Acid 500 MG TABLET PO (08:48)
--- NOTE | 2022-12-07 09:34 | MHC.CM.PN ---
IMM addressed with Daughter/HCP/Martha @ [phone] and original will be mailed certified letter to her @ [address] [facility] [id number] a copy has been placed on the chart.
--- NOTE | 2022-12-07 13:39 | MHC.SHP ---
Pre-Procedural Eval Section A Date of Service: 12/07/22 The patient is an INPATIENT: Yes Changes since office visit: No Cold of Flu in the past 2 weeks, No New Medical Problems, No Changes in Medication and No Patient answered all questions The History & Physical has been completed within 30 days and I have reviewed it.: Yes Section B Chief Complaint: hip fracture Allergies: Allergies Allergy/AdvReac Type Severity Reaction Status Date / Time cefepime Allergy Unknown Verified 12/07/22 06:14 Plan I have reviewed the history and physical and performed a pertinent physical examination on my patient. No changes have occurred unless specified. Time Spent With Patient Time: Total time managing care of this patient today ____ minutes.
--- NOTE | 2022-12-07 13:44 | P.CONAN_ITS ---
HPI - Anesthesia Eval Consult details Narrative: Femoral neck FX, hemiarthroplasty PMFSH Active Problems Active Problems: All Active Problems (Updated 12/06/22 @ 13:29 by Anjum De La Torre MD) Closed displaced fracture of left femoral neck (Acute) Fall (Acute) Closed head injury (Acute) Toxic metabolic encephalopathy (Acute) Multifactorial dementia (Acute) Transient cerebral ischemia (Acute) CVA (cerebral vascular accident) (Acute) Left-sided weakness (Acute) Expressive aphasia (Acute) Infection caused by Enterobacter cloacae (Acute) Cellulitis of left lower extremity (Acute) Fracture of wrist (Acute) Skin tear of lower leg without complication (Acute) Elevated troponin (Acute) Rhabdomyolysis (Acute) Squamous cell skin cancer (Acute) Dementia (Acute) Past Medical History Medical History Alzheimer disease Bilateral flank pain Chronic back pain Dementia HTN (hypertension) Recurrent UTI Squamous cell skin cancer Urge incontinence Family History Family History Mother Breast cancer Family history of problems with anesthesia: No Surgical History Surgical History H/O Spinal surgery H/O: hysterectomy History of knee replacement History of Problems with Anesthesia: No Social History Social History Household Members: None Housing: Assisted Living Facility Do you presently have visiting nurse or other home services: Yes (correction an tibiotics via midlime) Unable to assess alcohol history related to: Unknown Alcohol intake: never Patient Tobacco Use Status: Former Tobacco user Tobacco use type: Cigarette e-Cigarette/Vaping Use: Never Used Second Hand Smoke Exposure: No Advance Directives Date on File: 06/01/22 service: No Current occupational status: retired Meds Allergies Allergy/AdvReac Type Severity Reaction Status Date / Time cefepime Allergy Unknown Verified 12/07/22 06:14 Active Medications: Current Medications Acetaminophen (Acetaminophen 325 Mg Tablet) 650 mg PO Q6H PRN PRN Reason: Pain, Mild (Pain Scale 1-3) Amlodipine Besylate (Amlodipine Besylate 5 Mg Tablet) 5 mg PO DAILY SUJIT; Protocol Last Admin: 12/07/22 08:47 Dose: 5 mg Ascorbic Acid (Ascorbic Acid 500 Mg Tablet) 500 mg PO DAILY [facility] Last Admin: 12/07/22 08:48 Dose: 500 mg Docusate Sodium (Docusate Sodium 100 Mg Capsule) 100 mg PO BID [facility] Last Admin: 12/07/22 08:47 Dose: 100 mg Duloxetine HCl (Duloxetine Hcl 60 Mg Capsule.) 60 mg PO DAILY [facility] Last Admin: 12/07/22 08:47 Dose: 60 mg Ferrous Sulfate (Ferrous Sulfate 324 Mg Tablet.) 324 mg PO DAILY [facility] Last Admin: 12/07/22 08:47 Dose: 324 mg Gabapentin (Gabapentin 100 Mg Capsule) 100 mg PO TID [facility] Last Admin: 12/07/22 08:47 Dose: 100 mg Hydromorphone HCl (Hydromorphone Hcl 0.5 Mg/0.5 Ml Syringe) 0.5 mg IVPUSH Q4H PRN; Protocol PRN Reason: severe pain Last Admin: 12/07/22 04:21 Dose: 0.5 mg Metoprolol Succinate (Metoprolol Succinate Er 25 Mg Tab.Er.24h) 25 mg PO DAILY [facility]; Protocol Last Admin: 12/07/22 08:47 Dose: 25 mg Metoprolol Tartrate (Metoprolol Tartrate 50 Mg Tablet) 50 mg PO DAILY PRN; Protocol PRN Reason: Tachycardia Mirabegron (Mirabegron 50 Mg Tab.Er.24h) 50 mg PO DAILY [facility] Last Admin: 12/07/22 08:47 Dose: 50 mg Multivitamins/Vitamin C (Multivitamin Tablet) 1 tab PO DAILY [facility] Last Admin: 12/07/22 08:47 Dose: 1 tab Naloxone HCl (Naloxone Hcl 0.4 Mg/Ml Vial) 0.1 mg IVPUSH Q2M PRN PRN Reason: Respiratory Rate < 10 Nitrofurantoin Macrocrystals (Nitrofurantoin Macrocrystal 50 Mg Capsule) 50 mg PO BEDTIME [facility] Last Admin: 12/06/22 21:11 Dose: 50 mg Omeprazole (Omeprazole 20 Mg Capsule.) 20 mg PO DAILY@0630 [facility] Last Admin: 12/07/22 05:54 Dose: 20 mg Ondansetron HCl (Ondansetron Hcl 4 Mg/2 Ml Vial) 4 mg IVPUSH Q8H PRN PRN Reason: Nausea and Vomiting Oxycodone HCl (Oxycodone Hcl Immed Release 5 Mg Tablet) 5 mg PO BEDTIME [facility] Last Admin: 12/06/22 19:55 Dose: 5 mg Oxycodone HCl (Oxycodone Hcl Immed Release 5 Mg Tablet) 5 mg PO Q6H PRN PRN Reason: Breakthrough Pain Last Admin: 12/07/22 01:56 Dose: 5 mg Pharmacy Consult (Consult Rx Perform Med Rec) 1 each MISCELLANE ONCE PRN PRN Reason: Consult order Quetiapine Fumarate (Quetiapine Fumarate 50 Mg Tablet) 50 mg PO BEDTIME [facility] Last Admin: 12/06/22 19:55 Dose: 50 mg Senna (Sennosides 8.6 Mg Tablet) 8.6 mg PO DAILY PRN PRN Reason: Constipation Sodium Chloride (0.9 % Sodium Chloride Flush 3 Ml Syringe) 3 ml IVFLUSH QSHIFT [facility] Last Admin: 12/07/22 08:48 Dose: 3 ml Vitamin D (Cholecalciferol (Vitamin D3) 25 Mcg Tablet) 25 mcg PO DAILY [facility] Last Admin: 12/07/22 08:48 Dose: 25 mcg Home Medications Medication Instructions Recorded Confirmed Last Taken Type cholecalciferol (vitamin D3) 25 25 mcg PO DAILY 08/21/22 12/06/22 Unknown History mcg (1,000 unit) tablet docusate sodium 100 mg capsule 100 mg PO BID 08/21/22 12/06/22 Unknown History multivitamin 1 tab PO DAILY 08/21/22 12/06/22 Unknown History ferrous sulfate 325 mg (65 mg 325 mg PO DAILY 10/09/22 12/06/22 Unknown History iron) tablet amlodipine 5 mg tablet 5 mg PO DAILY 11/24/22 12/06/22 Unknown History duloxetine 60 mg capsule,delayed 60 mg PO DAILY 11/24/22 12/06/22 Unknown History release gabapentin 100 mg capsule 100 mg PO TID 11/24/22 12/06/22 Unknown History metoprolol succinate 25 mg 25 mg PO DAILY 11/24/22 12/06/22 Unknown History tablet,extended release 24 hr mirabegron 50 mg tablet,extended 50 mg PO DAILY 11/24/22 12/06/22 Unknown History release 24 hr (Myrbetriq) omeprazole 20 mg capsule,delayed 20 mg PO DAILY@0630 11/24/22 12/06/22 Unknown History release quetiapine 50 mg tablet 50 mg PO BEDTIME 11/24/22 12/06/22 Unknown History oxycodone 5 mg tablet 5 mg PO BEDTIME 11/25/22 12/06/22 Unknown History oxycodone 5 mg tablet 5 mg PO Q6H PRN Breakthrough Pain 11/25/22 12/06/22 Unknown History acetaminophen 500 mg tablet 1,000 mg PO Q6H PRN Pain 12/06/22 12/06/22 Unknown History ascorbic acid (vitamin C) 500 mg 500 mg PO DAILY 12/06/22 12/06/22 Unknown History tablet (Vitamin C) metoprolol tartrate 50 mg tablet 50 mg PO DAILY PRN Tachycardia 12/06/22 12/06/22 Unknown History nitrofurantoin macrocrystal 50 mg 50 mg PO BEDTIME 12/06/22 12/06/22 Unknown History capsule sennosides 8.6 mg tablet (senna) 8.6 mg PO DAILY PRN Constipation 12/06/22 12/06/22 Unknown History Exam Exam Date and Time: December 07, 2022 1344 Height,Weight and Vital Signs: Height 5 ft 5 in Weight 73 kg Last Vital Signs Temp 99.1 F 12/07/22 13:14 Pulse 87 12/07/22 13:14 Resp 16 12/07/22 13:14 BP 132/93 H 12/07/22 13:14 Pulse Ox 99 12/07/22 13:14 O2 Del Method Room Air 12/07/22 13:14 O2 Flow Rate 6 12/07/22 11:13 Pertinent Lab Results Pertinent Lab Results: Laboratory Tests 12/06/22 12/06/22 12/06/22 09:25 09:25 09:25 WBC 9.9 RBC 3.80 L Hgb 11.8 L Hct 35.5 L MCV 93.4 MCH 31.1 MCHC 33.2 RDW 12.9 Plt Count 222 D MPV 8.7 L Immature Gran % (Auto) 0.3 Neut % (Auto) 87.8 H Lymph % (Auto) 6.3 L [place] % (Auto) 4.9 Eos % (Auto) 0.5 Baso % (Auto) 0.2 Lymph # (Auto) 0.6 L [place] # (Auto) 0.5 Eos # (Auto) 0.1 Baso # (Auto) 0.0 Abs Immat Gran (auto) 0.03 Absolute Neuts (auto) 8.7 H Absolute Nucleated RBC 0.000 Nucleated RBC % (auto) 0.0 PT 11.1 INR 1.0 APTT 31.0 Sodium 140 Potassium 3.6 Chloride 102 Carbon Dioxide 28 Anion Gap 14 BUN 12 Creatinine 0.57 Estim Creat Clear Calc TNP Estimated GFR > 60 Random Glucose 107 Calcium 9.1 Total Bilirubin 1.0 AST 28 ALT 26 Alkaline Phosphatase 95 Total Protein 6.5 Albumin 4.1 Lipase 16 Blood Type Antibody Screen 12/06/22 12/07/22 12/07/22 11:30 06:07 06:07 WBC 9.8 RBC 3.63 L Hgb 11.2 L Hct 35.9 L MCV 98.9 H D MCH 30.9 MCHC 31.2 RDW 13.2 Plt Count 196 MPV 9.5 Immature Gran % (Auto) 0.3 Neut % (Auto) 81.8 H Lymph % (Auto) 9.1 L [place] % (Auto) 5.9 Eos % (Auto) 2.2 Baso % (Auto) 0.7 Lymph # (Auto) 0.9 L [place] # (Auto) 0.6 Eos # (Auto) 0.2 Baso # (Auto) 0.1 Abs Immat Gran (auto) 0.03 Absolute Neuts (auto) 8.0 Absolute Nucleated RBC 0.000 Nucleated RBC % (auto) 0.0 PT INR APTT Sodium 141 Potassium 4.2 Chloride 105 Carbon Dioxide 24 Anion Gap 16 BUN 15 Creatinine 0.64 Estim Creat Clear Calc 68.9 Estimated GFR > 60 Random Glucose 100 Calcium 8.8 Total Bilirubin AST ALT Alkaline Phosphatase Total Protein Albumin Lipase Blood Type O Positive Antibody Screen NEGATIVE Airway Mallampati Class: II TM Dist: >3cm Neck ROM: Limited Heart: rrr Lungs: cta Assessment and Plan Assessment Anesthesia Assessment: Anesthesia Plan Discussed Final Anesthetic Review Family History of Problems with Anesthesia: No History of Problems with Anesthesia: No NPO: Yes ASA Class: IV Final Preanesthetic Review: No Changes in Pt Med Stat, Meds/Allgs Chart Reviewed, Consent Obtained/Reviewed, Anes Risks/Benef Reviewed and DNR Form (If Appl.) Patient Risk: High Procedure Risk: Intermediate Anesthetic Plan Anesthetic Plan: GA and Agree w/ Assess. and Plan Disposition: Standard PACU
--- NOTE | 2022-12-07 15:00 | P.PNIM_ITS ---
Subjective Subjective Date of Service: 12/07/22 Interval History: L hip pain no chest pain or dyspnea Review of Systems Review of Systems: Yes all other systems are reviewed and are negative Physical Exam Vital Signs: Vital Signs: Last Vital Signs Temp 99.1 F 12/07/22 13:14 Pulse 87 12/07/22 13:14 Resp 16 12/07/22 13:14 BP 132/93 H 12/07/22 13:14 Pulse Ox 99 12/07/22 13:14 O2 Del Method Room Air 12/07/22 13:14 O2 Flow Rate 6 12/07/22 11:13 BMI result Body Mass Index 26.8 Gen: in pain HEENT: sclera anicteric, moist mucus membranes Neck: supple Lungs: clear to auscultation bilaterally Heart: regular rate and rhythm, no murmurs Abd: soft, non-tender, non-distended Ext: L hip flexed + externally rotated, exquisitely painful with any manipulation Skin: warm/well-perfused Neuro: alert and oriented to self + place Psych: appropriate affect Objective Data Active Medications Acetaminophen (Acetaminophen 325 Mg Tablet) 650 mg PO Q6H PRN PRN Reason: Pain, Mild (Pain Scale 1-3) Amlodipine Besylate (Amlodipine Besylate 5 Mg Tablet) 5 mg PO DAILY [facility]; Protocol Last Admin: 12/07/22 08:47 Dose: 5 mg Documented By: ADOLPH Ascorbic Acid (Ascorbic Acid 500 Mg Tablet) 500 mg PO DAILY [facility] Last Admin: 12/07/22 08:48 Dose: 500 mg Documented By: ADOLPH Docusate Sodium (Docusate Sodium 100 Mg Capsule) 100 mg PO BID [facility] Last Admin: 12/07/22 08:47 Dose: 100 mg Documented By: ADOPLH Duloxetine HCl (Duloxetine Hcl 60 Mg Capsule.) 60 mg PO DAILY [facility] Last Admin: 12/07/22 08:47 Dose: 60 mg Documented By: ADOLPH Fentanyl (Fentanyl Citrate/Pf 100 Mcg/2 Ml Vial) 25 mcg IVPUSH Q5M PRN; Protocol PRN Reason: Pain, Moderate(Pain Scale 4-6) Ferrous Sulfate (Ferrous Sulfate 324 Mg Tablet.) 324 mg PO DAILY [facility] Last Admin: 12/07/22 08:47 Dose: 324 mg Documented By: ADOLPH Gabapentin (Gabapentin 100 Mg Capsule) 100 mg PO TID [facility] Last Admin: 12/07/22 08:47 Dose: 100 mg Documented By: ADOLPH Hydromorphone HCl (Hydromorphone Hcl 0.5 Mg/0.5 Ml Syringe) 0.5 mg IVPUSH Q4H PRN; Protocol PRN Reason: severe pain Last Admin: 12/07/22 04:21 Dose: 0.5 mg Documented By: JAVED Metoprolol Succinate (Metoprolol Succinate Er 25 Mg Tab.Er.24h) 25 mg PO DAILY [facility]; Protocol Last Admin: 12/07/22 08:47 Dose: 25 mg Documented By: ADOLPH Metoprolol Tartrate (Metoprolol Tartrate 50 Mg Tablet) 50 mg PO DAILY PRN; Protocol PRN Reason: Tachycardia Mirabegron (Mirabegron 50 Mg Tab.Er.24h) 50 mg PO DAILY [facility] Last Admin: 12/07/22 08:47 Dose: 50 mg Documented By: ADOLPH Multivitamins/Vitamin C (Multivitamin Tablet) 1 tab PO DAILY [facility] Last Admin: 12/07/22 08:47 Dose: 1 tab Documented By: ADOLPH Naloxone HCl (Naloxone Hcl 0.4 Mg/Ml Vial) 0.1 mg IVPUSH Q2M PRN PRN Reason: Respiratory Rate < 10 Nitrofurantoin Macrocrystals (Nitrofurantoin Macrocrystal 50 Mg Capsule) 50 mg PO BEDTIME [facility] Last Admin: 12/06/22 21:11 Dose: 50 mg Documented By: JAVED Omeprazole (Omeprazole 20 Mg Capsule.) 20 mg PO DAILY@0630 [facility] Last Admin: 12/07/22 05:54 Dose: 20 mg Documented By: JAVED Ondansetron HCl (Ondansetron Hcl 4 Mg/2 Ml Vial) 4 mg IVPUSH Q8H PRN PRN Reason: Nausea and Vomiting Oxycodone HCl (Oxycodone Hcl Immed Release 5 Mg Tablet) 5 mg PO BEDTIME [facility] Last Admin: 12/06/22 19:55 Dose: 5 mg Documented By: JAVED Oxycodone HCl (Oxycodone Hcl Immed Release 5 Mg Tablet) 5 mg PO Q6H PRN PRN Reason: Breakthrough Pain Last Admin: 12/07/22 01:56 Dose: 5 mg Documented By: JAVED Pharmacy Consult (Consult Rx Perform Med Rec) 1 each MISCELLANE ONCE PRN PRN Reason: Consult order Quetiapine Fumarate (Quetiapine Fumarate 50 Mg Tablet) 50 mg PO BEDTIME [facility] Last Admin: 12/06/22 19:55 Dose: 50 mg Documented By: JAVED Senna (Sennosides 8.6 Mg Tablet) 8.6 mg PO DAILY PRN PRN Reason: Constipation Sodium Chloride (0.9 % Sodium Chloride Flush 3 Ml Syringe) 3 ml IVFLUSH QSHIFT [facility] Last Admin: 12/07/22 08:48 Dose: 3 ml Documented By: ADOLPH Vitamin D (Cholecalciferol (Vitamin D3) 25 Mcg Tablet) 25 mcg PO DAILY [facility] Last Admin: 12/07/22 08:48 Dose: 25 mcg Documented By: ADOLPH Labs 12/07/22 06:07 12/07/22 06:07 Labs: Laboratory Results - last 24 hr 12/07/22 12/07/22 06:07 06:07 MCV 98.9 H D MCH 30.9 MCHC 31.2 RDW 13.2 Plt Count 196 MPV 9.5 Immature Gran % (Auto) 0.3 Neut % (Auto) 81.8 H Lymph % (Auto) 9.1 L [place] % (Auto) 5.9 Eos % (Auto) 2.2 Baso % (Auto) 0.7 Lymph # (Auto) 0.9 L [place] # (Auto) 0.6 Eos # (Auto) 0.2 Baso # (Auto) 0.1 Abs Immat Gran (auto) 0.03 Absolute Neuts (auto) 8.0 Absolute Nucleated RBC 0.000 Nucleated RBC % (auto) 0.0 Anion Gap 16 Estim Creat Clear Calc 68.9 Estimated GFR > 60 Random Glucose 100 Calcium 8.8 Assessment and Plan (1) Closed displaced fracture of left femoral neck: Status: Acute Plan hosp d#2 82yo F resident of an assisted living memory care unit with a history of Alzhe dell-type dementia, chronic back pain s/p spinal fusion, HTN, SVT, recurrent UTI including most recently MDR-Enterobacter cloacae, and recent cefepime-induced encephalopathy presenting with acute L hip pain after a fall from a standing position.? She is found to have a mildly displaced subcapital L femur fracture. # Femur fracture - Orthopedics consulted, NPO for hemiarthroplasty today. Revised Cardiac Risk Index of 1.? TTE preiminary read: LV and RV systolic function is normal. No significant valve issues Moderately elevated RVSP. No further preoperative workup is indicated. # Hx SVT - Standing + prn metoprolol # HTN - Metoprolol and amlodipine # Chronic back pain - Gabapentin + oxycodone # Alzheimer dementia - Quetipine at bedtime # Recurrent UTI - Suppressive nitrofurantoin # VTE ppx: SCDs, postoperative LMWH # Dispo: will need STR Time Spent With Patient Time: Total time managing care of this patient today ___40_ minutes. Quality Stroke Does the patient have a stroke diagnosis?: No VTE Prior VTE?: No VTE Risk Level:: Medical - moderate - high VTE Device Contraindication: N/A - Device Ordered VTE Drug Contraindication: N/A - Med Ordered
--- NOTE | 2022-12-07 16:05 | MHC.CM.PN ---
CM returned a call from Daughter/HCP/Martha @ [phone]; Patient's first choice facilities for STR are 1.[facility] and 2. [facility]. Referrals have been made to these 2 SNF and CM will follow.
--- NOTE | 2022-12-07 16:14 | P.BOP_ITS ---
Brief Operative Note Date of Service: 12/07/22 Pre-op diagnosis: Left femoral neck fracture Post-op diagnosis: same Procedure: Left hip hemiarthroplasty Implants: Bhavesh accolade C #4 127 deg with + bipolar Surgeon: Uche Ruffin MD Anesthesia: GETA and local Was an Bending Roll Operator used for this Procedure?: Yes Bending Roll Operator: Joey Martinez Estimated blood loss (mL): 150 IV fluids (mL): 800 Pathology: other Condition: stable Disposition: PACU
--- NOTE | 2022-12-07 18:05 | PC.NURSE ---
patient returned from surgery and appears drowsy on assessment. Vital signs are all WNL and patient denies any pain. Surgical dsg to L hip clean, dry, and intact. ice pack placed to L hip for comfort. Will continue to monitor
[2022-12-07 21:02] LABS: MANUAL DIFF FLAG NO
[2022-12-07 21:08] LABS: Basophils Absolute Auto 0.1 X10*3/uL (0.0-0.2); Basophils Percent Auto 0.6 % (0-2); Eosinophils Percent Auto 0.2 % (0-4); Hematocrit 32.5 % (37.0-47.0); Hemoglobin 10.9 g/dl (12.0-16.0); Imm Gran Abs Auto 0.15 X10*3/uL (0.00-0.03); Imm Gran Pct Auto 1.2 % (0.0-0.4); Lymphocytes Absolute Auto 0.7 X10*3/uL (1.2-4.9); Lymphocytes Percent Auto 5.9 % (20-40); Mean Corpuscular HGB Conc 33.5 g/dl (31.0-35.0); Mean Corpuscular Volume 95.3 fL (80.0-98.0); Mean Platelet Volume 9.5 fL (9.4-12.3); Monocytes Absolute Auto 0.5 X10*3/uL (0.1-1.2); Monocytes Percent Auto 3.8 % (2-11); Neutrophils Absolute Auto 11.1 x10*3/uL (2.0-8.3); Neutrophils Percent Auto 88.3 % (45-73); Platelet Count 212 X10*3/uL (160-400); Red Blood Count 3.41 X10*6/uL (4.20-5.50); Red Cell Distribution Width 13.2 % (11.0-16.0); White Blood Count 12.6 X10*3/uL (4.8-10.8)
[2022-12-07] MEDS: nitrofurantoin macrocrystaL 50 MG CAPSULE PO (22:14)
[2022-12-07] MEDS: QUEtiapine Fumarate 50 MG TABLET PO (22:14)
[2022-12-08] VITALS (8 sets, daily range): BP systolic 88–143; BP diastolic 48–72; PULSE 92–113; RESP 18–20; TEMP 36.2–37.5; O2SAT 93–100
[2022-12-08 06:32] LABS: Hematocrit 32.5 % (37.0-47.0); Hemoglobin 10.3 g/dl (12.0-16.0); Mean Corpuscular HGB Conc 31.7 g/dl (31.0-35.0); Mean Corpuscular Hemoglobin 31.3 pg (27.0-33.0); Mean Corpuscular Volume 98.8 fL (80.0-98.0); Mean Platelet Volume 9.7 fL (9.4-12.3); Platelet Count 176 X10*3/uL (160-400); Red Blood Count 3.29 X10*6/uL (4.20-5.50); Red Cell Distribution Width 13.3 % (11.0-16.0); White Blood Count 10.6 X10*3/uL (4.8-10.8)
[2022-12-08] MEDS: Omeprazole 20 MG CAPSULE.DR PO (06:37)
[2022-12-08] MEDS: HYDROmorphone HCl 0.5 MG/0.5 ML SYRINGE IVPUSH (06:37)
[2022-12-08 07:16] LABS: Anion Gap 18 (12-20); Calcium 8.4 mg/dL (8.4-10.2); Carbon Dioxide 21 mmol/L (22-29); Chloride 105 mmol/L (96-108); Glucose Random 134 mg/dL (60-115); Potassium 4.2 mmol/L (3.3-5.1); Sodium 140 mmol/L (135-145)
[2022-12-08 07:33] LABS: Blood Urea Nitrogen 31 mg/dL (9-16); Creatinine Clr Calc Pharmacy 38.7; Estimated Glomerular Filt Rate 46
[2022-12-08] MEDS: Lactated Ringers 500 ML IVCONT ×2 (08:00→09:14)
[2022-12-08] MEDS: Lactated Ringers 1,000 ML 100 ML IVCONT ×2 (08:00→22:01)
[2022-12-08] MEDS: 0.9 % Sodium Chloride Flush 3 ML SYRINGE IVFLUSH ×2 (08:01→21:34)
[2022-12-08] MEDS: Cholecalciferol (Vitamin D3) 25 MCG TABLET PO (08:01)
[2022-12-08] MEDS: Ascorbic Acid 500 MG TABLET PO (08:01)
[2022-12-08] MEDS: Docusate Sodium 100 MG CAPSULE PO ×2 (08:01→21:33)
[2022-12-08] MEDS: Gabapentin 100 MG CAPSULE PO (08:01)
[2022-12-08] MEDS: Mirabegron 50 MG TAB.ER.24H PO (08:01)
[2022-12-08] MEDS: DULoxetine HCl 60 MG CAPSULE.DR PO (08:01)
[2022-12-08] MEDS: Multivitamin TABLET 1 TAB PO (08:01)
[2022-12-08] MEDS: Ferrous Sulfate 324 MG TABLET.DR PO (08:01)
--- NOTE | 2022-12-08 09:26 | P.PNIM_ITS ---
Subjective Subjective Date of Service: 12/08/22 Interval History: POD#1 Sleepy BP this AM low 88/52, getting IV Fluids Pain better controlled Review of Systems Review of Systems: Yes all other systems are reviewed and are negative Physical Exam Vital Signs: Vital Signs: Last Vital Signs Temp 98.5 F 12/08/22 07:22 Pulse 92 12/08/22 07:22 Resp 20 12/08/22 07:22 BP 90/48 L 12/08/22 08:24 Pulse Ox 100 12/08/22 07:22 O2 Del Method Nasal Cannula 12/08/22 07:22 O2 Flow Rate 6 12/08/22 07:22 BMI result Body Mass Index 26.8 Gen: tired but NAD HEENT: sclera anicteric, moist mucus membranes Neck: supple Lungs: clear to auscultation bilaterally Heart: regular rate and rhythm, no murmurs Abd: soft, non-tender, non-distended Ext: L hip with dry dressing Skin: warm/well-perfused Neuro: alert and oriented to self + place Psych: appropriate affect Objective Data Active Medications Acetaminophen (Acetaminophen 325 Mg Tablet) 650 mg PO Q6H PRN PRN Reason: Pain, Mild (Pain Scale 1-3) Amlodipine Besylate (Amlodipine Besylate 5 Mg Tablet) 5 mg PO DAILY [facility]; Protocol Last Admin: 12/07/22 08:47 Dose: 5 mg Documented By: ADOLPH Ascorbic Acid (Ascorbic Acid 500 Mg Tablet) 500 mg PO DAILY [facility] Last Admin: 12/08/22 08:01 Dose: 500 mg Documented By: CALVIN Docusate Sodium (Docusate Sodium 100 Mg Capsule) 100 mg PO BID [facility] Last Admin: 12/08/22 08:01 Dose: 100 mg Documented By: CALVIN Duloxetine HCl (Duloxetine Hcl 60 Mg Capsule.) 60 mg PO DAILY [facility] Last Admin: 12/08/22 08:01 Dose: 60 mg Documented By: CALVIN Enoxaparin Sodium (Enoxaparin Sodium 40 Mg/0.4 Ml Syringe) 40 mg SUBCUT Q24H [facility] Ferrous Sulfate (Ferrous Sulfate 324 Mg Tablet.) 324 mg PO DAILY [facility] Last Admin: 12/08/22 08:01 Dose: 324 mg Documented By: CALVIN Gabapentin (Gabapentin 100 Mg Capsule) 100 mg PO TID [facility] Last Admin: 12/08/22 08:01 Dose: 100 mg Documented By: CALVIN Hydromorphone HCl (Hydromorphone Hcl 0.5 Mg/0.5 Ml Syringe) 0.25 mg IVPUSH Q4H PRN; Protocol PRN Reason: severe pain Cefazolin Sodium/Dextrose (Ancef) 2 gm in 50 mls @ 100 mls/hr IV POSTOP COUNT [facility]CLUD[facility] Lactated Ringer's (Lr) 1,000 mls @ 100 mls/hr IVCONT .Q10H [facility] Stop: 12/08/22 22:44 Last Admin: 12/08/22 08:00 Dose: 100 mls/hr Documented By: CALVIN Metoprolol Succinate (Metoprolol Succinate Er 25 Mg Tab.Er.24h) 25 mg PO DAILY [facility]; Protocol Last Admin: 12/07/22 08:47 Dose: 25 mg Documented By: ADOLPH Metoprolol Tartrate (Metoprolol Tartrate 50 Mg Tablet) 50 mg PO DAILY PRN; Protocol PRN Reason: Tachycardia Mirabegron (Mirabegron 50 Mg Tab.Er.24h) 50 mg PO DAILY [facility] Last Admin: 12/08/22 08:01 Dose: 50 mg Documented By: CALVIN Multivitamins/Vitamin C (Multivitamin Tablet) 1 tab PO DAILY [facility] Last Admin: 12/08/22 08:01 Dose: 1 tab Documented By: CALVIN Naloxone HCl (Naloxone Hcl 0.4 Mg/Ml Vial) 0.1 mg IVPUSH Q2M PRN PRN Reason: Respiratory Rate < 10 Nitrofurantoin Macrocrystals (Nitrofurantoin Macrocrystal 50 Mg Capsule) 50 mg PO BEDTIME [facility] Last Admin: 12/07/22 22:14 Dose: 50 mg Documented By: YAZMIN Omeprazole (Omeprazole 20 Mg Capsule.Dr) 20 mg PO DAILY@0630 [facility] Last Admin: 12/08/22 06:37 Dose: 20 mg Documented By: YAZMIN Ondansetron HCl (Ondansetron Hcl 4 Mg/2 Ml Vial) 4 mg IVPUSH Q8H PRN PRN Reason: Nausea and Vomiting Oxycodone HCl (Oxycodone Hcl Immed Release 5 Mg Tablet) 5 mg PO BEDTIME [facility] Last Admin: 12/07/22 22:14 Dose: 5 mg Documented By: YAZMIN Oxycodone HCl (Oxycodone Hcl Immed Release 5 Mg Tablet) 5 mg PO Q6H PRN PRN Reason: Breakthrough Pain Last Admin: 12/07/22 01:56 Dose: 5 mg Documented By: JAVED Pharmacy Consult (Consult Rx Perform Med Rec) 1 each MISCELLANE ONCE PRN PRN Reason: Consult order Quetiapine Fumarate (Quetiapine Fumarate 50 Mg Tablet) 50 mg PO BEDTIME [facility] Last Admin: 12/07/22 22:14 Dose: 50 mg Documented By: YAZMIN Senna (Sennosides 8.6 Mg Tablet) 8.6 mg PO DAILY PRN PRN Reason: Constipation Sodium Chloride (0.9 % Sodium Chloride Flush 3 Ml Syringe) 3 ml IVFLUSH QSHIFT [facility] Last Admin: 12/08/22 08:01 Dose: 3 ml Documented By: CALVIN Vitamin D (Cholecalciferol (Vitamin D3) 25 Mcg Tablet) 25 mcg PO DAILY [facility] Last Admin: 12/08/22 08:01 Dose: 25 mcg Documented By: CALVIN Labs 12/08/22 06:01 12/08/22 06:01 Labs: Laboratory Results - last 24 hr 12/07/22 12/08/22 12/08/22 20:48 06:01 06:01 MCV 95.3 98.8 H MCH 32.0 31.3 MCHC 33.5 31.7 RDW 13.2 13.3 Plt Count 212 176 MPV 9.5 9.7 Immature Gran % (Auto) 1.2 H Neut % (Auto) 88.3 H Lymph % (Auto) 5.9 L [place] % (Auto) 3.8 Eos % (Auto) 0.2 Baso % (Auto) 0.6 Lymph # (Auto) 0.7 L [place] # (Auto) 0.5 Eos # (Auto) 0.0 Baso # (Auto) 0.1 Abs Immat Gran (auto) 0.15 H Absolute Neuts (auto) 11.1 H Absolute Nucleated RBC 0.000 0.000 Nucleated RBC % (auto) 0.0 0.0 Anion Gap 18 Estim Creat Clear Calc 38.7 Estimated GFR 46 Random Glucose 134 H Calcium 8.4 TTE 12/07/22 1. Normal LV systolic function with LVEF of 60-65% with mild ? LVH with impaired relaxation filling pattern ? 2. Cardiac valvular Dopplers within normal limits? 3. Moderately elevated right ventricular systolic pressure ? ? ? 4. No gross pericardial effusion ? ? ? 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 She is found to have a mildly displaced subcapital L femur fracture. # Femur fracture - POD#1 L hemiarthroplasty. Postop care per Ortho. PT eval. Lovenox for VTE ppx # Hypotension # JOSETTE - Appears dry, will give IV LR and recheck BP afterwards, repeat BMP in AM # Acute hypoxic resp failure - Likely due to atelectasis. Encourage IS. Wean O2 as tolerated. # Hx SVT - Standing + prn metoprolol # HTN - Metoprolol and amlodipine- hold for hypotension # Chronic back pain - Gabapentin + oxycodone # Alzheimer dementia - Quetipine at bedtime # Recurrent UTI - Suppressive nitrofurantoin # VTE ppx: LMWH # Dispo: will need STR In my clinical judgment, the patient requires continued inpatient hospitalization for the following reasons: postop care Time Spent With Patient Time: Total time managing care of this patient today ____ minutes. Quality Stroke Does the patient have a stroke diagnosis?: No VTE Prior VTE?: No VTE Risk Level:: Medical - moderate - high VTE Device Contraindication: N/A - Device Ordered VTE Drug Contraindication: N/A - Med Ordered
--- NOTE | 2022-12-08 12:05 | PM.PNORT ---
Subjective Subjective Date of Service: 12/08/22 Interval history: POD1 s/p left hip elpidio. Patient is resting comfortably in bed. No overnight events. Confused at baseline. Denies any complaints. Physical Exam Vital Signs: Vital Signs: Last Vital Signs Temp 98.7 F 12/08/22 11:12 Pulse 96 12/08/22 11:12 Resp 20 12/08/22 11:12 BP 101/56 L 12/08/22 11:12 Pulse Ox 95 12/08/22 11:12 O2 Del Method Nasal Cannula 12/08/22 11:12 O2 Flow Rate 6 12/08/22 11:12 BMI result Body Mass Index 26.8 Const: General: cooperative, healthy appearing and no acute distress Resp: Effort & Inspection: normal respiratory effort and able to speak in complete sentences Cardio: Rate: regular rate Peripheral pulses: Peripheral pulses 2+ throughout GI: Palpation (GI): Soft to palpation Skin: Lesions: no lesions Rashes: no rashes Extrem: Other: Left hip banadages are c/d/i. Sensation reportedly intact. Calf supple. Procedures Date of Service Date of Service: 12/08/22 Progress Note: A&P Assessment and plan (1) Closed displaced fracture of left femoral neck: Status: Acute (2) Fall: Status: Acute Plan Continue pain mgmnt Begin Lovenox for dvt ppx begin PT/OT for left hip elpidio - WBAT Dispo planning-Pending PT eval, pain mgmnt Time Spent With Patient Time: Total time managing care of this patient today ____ minutes. Quality Stroke Does the patient have a stroke diagnosis?: No VTE Prior VTE?: No VTE Risk Level:: Medical - moderate - high VTE Device Contraindication: N/A - Device Ordered VTE Drug Contraindication: N/A - Med Ordered
[2022-12-08] MEDS: Enoxaparin Sodium 40 MG/0.4 ML SYRINGE SUBCUT (15:14)
[2022-12-08 15:34] LABS: ABG Base Excess 6.8 mmol/L; ABG HCO3 31 mmol/L (22-26); ABG pCO2 46 mmHg (32-45); ABG pH 7.43 (7.35-7.45); ABG pO2 74 mmHg (83-108)
[2022-12-08] MEDS: Lactated Ringers 1,000 ML 999 ML IV (16:25)
[2022-12-08 16:29] LABS: Hematocrit 28.9 % (37.0-47.0); Hemoglobin 9.4 g/dl (12.0-16.0); Mean Corpuscular HGB Conc 32.5 g/dl (31.0-35.0); Mean Corpuscular Hemoglobin 31.3 pg (27.0-33.0); Mean Corpuscular Volume 96.3 fL (80.0-98.0); Mean Platelet Volume 9.2 fL (9.4-12.3); Platelet Count 170 X10*3/uL (160-400); Red Cell Distribution Width 13.6 % (11.0-16.0)
[2022-12-08 16:44] LABS: Ammonia 26 umol/L (13-55)
[2022-12-08 16:59] LABS: Alanine Aminotransferase 17 U/L (0-31); Albumin Level 3.1 g/dL (3.5-5.0); Alkaline Phosphatase 82 U/L (39-117); Anion Gap 13 (12-20); Aspartate Amino Transferase 33 U/L (5-31); Bilirubin Total 0.7 mg/dL (0.0-1.0); Blood Urea Nitrogen 35 mg/dL (9-16); Calcium 8.2 mg/dL (8.4-10.2); Carbon Dioxide 27 mmol/L (22-29); Chloride 104 mmol/L (96-108); Creatinine Clr Calc Pharmacy 35.3; Estimated Glomerular Filt Rate 41; Glucose Random 148 mg/dL (60-115); Potassium 4.3 mmol/L (3.3-5.1); Sodium 140 mmol/L (135-145); Total Protein 5.2 g/dL (6.5-8.0)
[2022-12-08 17:14] LABS: TSH reflex Free T4 1.87 uIU/mL (0.32-4.0)
[2022-12-08 17:30] LABS: Vitamin B12 530 pg/mL (200-900)
--- NOTE | 2022-12-08 20:34 | HO.POSTANES ---
Post Anesthesia Evaluation Post Anesthesia Evaluation Date of Service: 12/08/22 Vital Signs: Vital Signs Temp Pulse Resp BP Pulse Ox O2 Del Method O2 Flow Rate 12/08/22 19:08 98.4 F 113 H 20 105/58 L 93 Oxymask 4 12/08/22 15:07 98.7 F 99 20 118/55 L 98 Oxymask 2 12/08/22 11:12 98.7 F 96 20 101/56 L 95 Nasal Cannula 6 12/08/22 09:32 100 96/53 L Anesthesia: General Endotracheal-GETA Mental Status: Awake Pain Control: Satisfactory Nausea/Vomiting: None Hydration: Adequate Anesthesia-Related Issues: No Anes. Related Issues
[2022-12-08] MEDS: nitrofurantoin macrocrystaL 50 MG CAPSULE PO (21:33)
[2022-12-08] MEDS: oxyCODONE HCl Immed Release 5 MG TABLET PO (21:33)
[2022-12-08 22:29] LABS: ABG Refer to POC result
[2022-12-09] VITALS (7 sets, daily range): BP systolic 118–155; BP diastolic 57–71; PULSE 99–113; RESP 18–20; TEMP 36.4–37; O2SAT 93–98
[2022-12-09] MEDS: oxyCODONE HCl Immed Release 5 MG TABLET PO ×2 (05:24→21:12)
[2022-12-09] MEDS: Omeprazole 20 MG CAPSULE.DR PO (05:24)
[2022-12-09 06:45] LABS: Hematocrit 26.1 % (37.0-47.0); Hemoglobin 8.4 g/dl (12.0-16.0); Mean Corpuscular HGB Conc 32.2 g/dl (31.0-35.0); Mean Corpuscular Hemoglobin 31.5 pg (27.0-33.0); Mean Corpuscular Volume 97.8 fL (80.0-98.0); Mean Platelet Volume 9.7 fL (9.4-12.3); Platelet Count 175 X10*3/uL (160-400); Red Blood Count 2.67 X10*6/uL (4.20-5.50); Red Cell Distribution Width 13.5 % (11.0-16.0); White Blood Count 10.2 X10*3/uL (4.8-10.8)
[2022-12-09 07:00] LABS: Anion Gap 14 (12-20); Blood Urea Nitrogen 34 mg/dL (9-16); Carbon Dioxide 24 mmol/L (22-29); Chloride 103 mmol/L (96-108); Creatinine Clr Calc Pharmacy 50.7; Estimated Glomerular Filt Rate > 60; Glucose Random 113 mg/dL (60-115); Potassium 4.1 mmol/L (3.3-5.1); Sodium 137 mmol/L (135-145)
[2022-12-09] MEDS: Multivitamin TABLET 1 TAB PO (07:49)
[2022-12-09] MEDS: Lactated Ringers 1,000 ML 100 ML IVCONT (07:49)
[2022-12-09] MEDS: Cholecalciferol (Vitamin D3) 25 MCG TABLET PO (07:49)
[2022-12-09] MEDS: Docusate Sodium 100 MG CAPSULE PO (07:49)
[2022-12-09] MEDS: Mirabegron 50 MG TAB.ER.24H PO (07:49)
[2022-12-09] MEDS: Ferrous Sulfate 324 MG TABLET.DR PO (07:49)
[2022-12-09] MEDS: Ascorbic Acid 500 MG TABLET PO (07:50)
[2022-12-09] MEDS: Metoprolol Succinate ER 25 MG TAB.ER.24H PO (08:10)
--- NOTE | 2022-12-09 08:47 | PM.PNORT ---
Subjective Subjective Date of Service: 12/09/22 Interval history: POD2 s/p left hip elpidio. Patient is resting comfortably in bed. No overnight events. Confused at baseline. Denies any complaints. Physical Exam Vital Signs: Vital Signs: Last Vital Signs Temp 97.5 F 12/09/22 07:20 Pulse 112 H 12/09/22 07:20 Resp 20 12/09/22 07:20 BP 142/67 H 12/09/22 07:20 Pulse Ox 96 12/09/22 07:20 O2 Del Method Oxymask 12/09/22 07:20 O2 Flow Rate 4 12/09/22 07:20 BMI result Body Mass Index 26.8 Const: General: cooperative, healthy appearing and no acute distress Resp: Effort & Inspection: normal respiratory effort and able to speak in complete sentences Cardio: Rate: regular rate Peripheral pulses: Peripheral pulses 2+ throughout GI: Palpation (GI): Soft to palpation Skin: Lesions: no lesions Rashes: no rashes Extrem: Other: Left hip banadages are c/d/i. Sensation reportedly intact. Calf supple. Able to dorsi/plantarflex. Procedures Date of Service Date of Service: 12/09/22 Progress Note: A&P Assessment and plan (1) Closed displaced fracture of left femoral neck: Status: Acute (2) Fall: Status: Acute Plan Continue pain mgmnt Continue Lovenox for dvt ppx Continue PT/OT for left hip elpidio - WBAT Dispo planning - PT, pain mgmnt, rehab once medically cleared. Time Spent With Patient Time: Total time managing care of this patient today ____ minutes. Quality Stroke Does the patient have a stroke diagnosis?: No VTE Prior VTE?: No VTE Risk Level:: Medical - moderate - high VTE Device Contraindication: N/A - Device Ordered VTE Drug Contraindication: N/A - Med Ordered
--- NOTE | 2022-12-09 10:21 | HO.PM.IMPN ---
Subjective Subjective Date of Service: 12/09/22 Interval History: More awake today BP + UOP improved, 490 mL of urine thus far since midnight Pain controlled Review of Systems Review of Systems: Yes all other systems are reviewed and are negative Physical Exam Vital Signs: Vital Signs: Last Vital Signs Temp 97.5 F 12/09/22 07:20 Pulse 112 H 12/09/22 07:20 Resp 20 12/09/22 07:20 BP 142/67 H 12/09/22 07:20 Pulse Ox 96 12/09/22 07:20 O2 Del Method Oxymask 12/09/22 07:20 O2 Flow Rate 4 12/09/22 07:20 BMI result Body Mass Index 26.8 Gen: awake, alert, not in acute distress HEENT: sclera anicteric, moist mucus membranes Neck: supple Lungs: clear to auscultation bilaterally Heart: regular, tachycardic, no murmurs Abd: soft, non-tender, non-distended Ext: L hip with dry dressing Skin: warm/well-perfused Neuro: alert and oriented to self + place Psych: appropriate affect Objective Data Active Medications Acetaminophen (Acetaminophen 325 Mg Tablet) 650 mg PO Q6H PRN PRN Reason: Pain, Mild (Pain Scale 1-3) Amlodipine Besylate (Amlodipine Besylate 5 Mg Tablet) 5 mg PO DAILY [facility]; Protocol Last Admin: 12/07/22 08:47 Dose: 5 mg Documented By: ADOLPH Ascorbic Acid (Ascorbic Acid 500 Mg Tablet) 500 mg PO DAILY [facility] [place] Last Admin: 12/09/22 07:50 Dose: 500 mg Documented By: CALVIN Docusate Sodium (Docusate Sodium 100 Mg Capsule) 100 mg PO BID [facility] [place] Last Admin: 12/09/22 07:49 Dose: 100 mg Documented By: CALVIN Duloxetine HCl (Duloxetine Hcl 60 Mg Capsule.) 60 mg PO DAILY [facility] [place] Last Admin: 12/08/22 08:01 Dose: 60 mg Documented By: CALVIN Enoxaparin Sodium (Enoxaparin Sodium 40 Mg/0.4 Ml Syringe) 40 mg SUBCUT Q24H [facility] [place] Last Admin: 12/08/22 15:14 Dose: 40 mg Documented By: CALVIN Ferrous Sulfate (Ferrous Sulfate 324 Mg Tablet.) 324 mg PO DAILY [facility] [place] Last Admin: 12/09/22 07:49 Dose: 324 mg Documented By: CALVIN Gabapentin (Gabapentin 100 Mg Capsule) 100 mg PO TID [facility] [place] Last Admin: 12/08/22 15:22 Dose: Not Given Documented By: CALVIN Non-Admin Reason: Physician Approved Comments: pt very lethargic Hydromorphone HCl (Hydromorphone Hcl 0.5 Mg/0.5 Ml Syringe) 0.25 mg IVPUSH Q4H PRN; Protocol PRN Reason: severe pain Cefazolin Sodium/Dextrose (Ancef) 2 gm in 50 mls @ 100 mls/hr IV POSTOP SUJIT Lactated Ringer's (Lr) 1,000 mls @ 50 mls/hr IVCONT .Q20H [facility] [place] Last Admin: 12/09/22 07:49 Dose: 100 mls/hr Documented By: CALVIN Metoprolol Succinate (Metoprolol Succinate Er 25 Mg Tab.Er.24h) 25 mg PO DAILY [facility] [place]; Protocol Last Admin: 12/09/22 08:10 Dose: 25 mg Documented By: CALVIN Metoprolol Tartrate (Metoprolol Tartrate 50 Mg Tablet) 50 mg PO DAILY PRN; Protocol PRN Reason: Tachycardia Mirabegron (Mirabegron 50 Mg Tab.Er.24h) 50 mg PO DAILY [facility] [place] Last Admin: 12/09/22 07:49 Dose: 50 mg Documented By: CALVIN Multivitamins/Vitamin C (Multivitamin Tablet) 1 tab PO DAILY [facility] [place] Last Admin: 12/09/22 07:49 Dose: 1 tab Documented By: CALVIN Naloxone HCl (Naloxone Hcl 0.4 Mg/Ml Vial) 0.1 mg IVPUSH Q2M PRN PRN Reason: Respiratory Rate < 10 Nitrofurantoin Macrocrystals (Nitrofurantoin Macrocrystal 50 Mg Capsule) 50 mg PO BEDTIME [facility] [place] Last Admin: 12/08/22 21:33 Dose: 50 mg Documented By: DOT Omeprazole (Omeprazole 20 Mg Capsule.) 20 mg PO DAILY@0630 [facility] [place] Last Admin: 12/09/22 05:24 Dose: 20 mg Documented By: DOT Ondansetron HCl (Ondansetron Hcl 4 Mg/2 Ml Vial) 4 mg IVPUSH Q8H PRN PRN Reason: Nausea and Vomiting Oxycodone HCl (Oxycodone Hcl Immed Release 5 Mg Tablet) 5 mg PO BEDTIME [facility] [place] Last Admin: 12/08/22 21:33 Dose: 5 mg Documented By: DOT Oxycodone HCl (Oxycodone Hcl Immed Release 5 Mg Tablet) 5 mg PO Q6H PRN PRN Reason: Breakthrough Pain Last Admin: 12/09/22 05:24 Dose: 5 mg Documented By: DOT Pharmacy Consult (Consult Rx Perform Med Rec) 1 each MISCELLANE ONCE PRN PRN Reason: Consult order Quetiapine Fumarate (Quetiapine Fumarate 50 Mg Tablet) 50 mg PO BEDTIME [facility] [place] Last Admin: 12/07/22 22:14 Dose: 50 mg Documented By: YAZMIN Senna (Sennosides 8.6 Mg Tablet) 8.6 mg PO DAILY PRN PRN Reason: Constipation Sodium Chloride (0.9 % Sodium Chloride Flush 3 Ml Syringe) 3 ml IVFLUSH QSHIFT [facility] [place] Last Admin: 12/09/22 07:50 Dose: Not Given Documented By: CALVIN Non-Admin Reason: IV Running Vitamin D (Cholecalciferol (Vitamin D3) 25 Mcg Tablet) 25 mcg PO DAILY [facility] [place] Last Admin: 12/09/22 07:49 Dose: 25 mcg Documented By: CALVIN Labs 12/09/22 06:13 12/09/22 06:13 Labs: Laboratory Results - last 24 hr 12/08/22 12/08/22 12/08/22 15:24 16:16 16:16 MCV 96.3 MCH 31.3 MCHC 32.5 RDW 13.6 Plt Count 170 MPV 9.2 L Absolute Nucleated RBC 0.000 Nucleated RBC % (auto) 0.0 O2 Saturation 93.0 ABG pH at Pt Temp 7.43 ABG pCO2 at Pt Temp 46 H ABG pO2 at Pt Temp 74 L ABG HCO3 31 H ABG Base Excess (Actual) 6.8 Anion Gap 13 Estim Creat Clear Calc 35.3 Estimated GFR 41 Random Glucose 148 H Calcium 8.2 L Total Bilirubin 0.7 AST 33 H ALT 17 Alkaline Phosphatase 82 Ammonia Total Protein 5.2 L Albumin 3.1 L Vitamin B12 530 Folate 17.0 TSH 12/08/22 12/08/22 12/09/22 16:16 16:16 06:13 MCV 97.8 MCH 31.5 MCHC 32.2 RDW 13.5 Plt Count 175 MPV 9.7 Absolute Nucleated RBC 0.000 Nucleated RBC % (auto) 0.0 O2 Saturation ABG pH at Pt Temp ABG pCO2 at Pt Temp ABG pO2 at Pt Temp ABG HCO3 ABG Base Excess (Actual) Anion Gap Estim Creat Clear Calc Estimated GFR Random Glucose Calcium Total Bilirubin AST ALT Alkaline Phosphatase Ammonia 26 Total Protein Albumin Vitamin B12 Folate TSH 1.87 12/09/22 06:13 MCV MCH MCHC RDW Plt Count MPV Absolute Nucleated RBC Nucleated RBC % (auto) O2 Saturation ABG pH at Pt Temp ABG pCO2 at Pt Temp ABG pO2 at Pt Temp ABG HCO3 ABG Base Excess (Actual) Anion Gap 14 Estim Creat Clear Calc 50.7 Estimated GFR > 60 Random Glucose 113 Calcium 8.0 L Total Bilirubin AST ALT Alkaline Phosphatase Ammonia Total Protein Albumin Vitamin B12 Folate TSH Impressions Pelvis X-Ray 12/08/22 07:45 IMPRESSION: Normal alignment at the left hip, status post hemiarthroplasty placement. No periprosthetic fracture. Head CT 12/08/22 16:52 IMPRESSION: 1. No acute intracranial abnormality. Assessment and Plan (1) Closed displaced fracture of left femoral neck: Status: Acute Plan hosp d#4 82yo F resident of an assisted living memory care unit with a history of Alzheimer-type dementia, chronic back pain s/p spinal fusion, HTN, SVT, recurrent UTI including most recently MDR-Enterobacter cloacae, and recent cefepime-induced encephalopathy presenting with acute L hip pain after a fall from a standing position.? She is found to have a mildly displaced subcapital L femur fracture and underwent L hemiarthroplasty on 12/07/22 # Femur fracture - POD#2 L hemiarthroplasty. Postop care per Ortho. PT eval; WBAT; Lovenox for VTE ppx. # Postoperative somnolence - Resolved after holding gabapentin + duloxetine + quetiapine # Hypotension # JOSETTE - Resolved; decrease LR rate; recheck BMP in AM # Acute hypoxic resp failure - Likely due to atelectasis. Encourage IS. Wean O2 as tolerated. # Hx SVT - Standing + prn metoprolol # HTN - Metoprolol and amlodipine, latter held for hypotension # Chronic back pain - On low-dose chronic oxycodone; held gabapentin + duolxetine # Alzheimer dementia - Held quetiapine # Recurrent UTI - Suppressive nitrofurantoin # VTE ppx: LMWH # Dispo: will need STR In my clinical judgment, the patient requires continued inpatient hospitalization for the following reasons: postop care Time Spent With Patient Time: Total time managing care of this patient today ___40_ minutes. Quality Stroke Does the patient have a stroke diagnosis?: No VTE Prior VTE?: No VTE Risk Level:: Medical - moderate - high VTE Device Contraindication: N/A - Device Ordered VTE Drug Contraindication: N/A - Med Ordered
--- NOTE | 2022-12-09 11:31 | W.PM.OPN ---
Operative Note Operative Note Date of Service: 12/07/22 Narrative: Date of Service: 12/07/22 Pre-op diagnosis: Left femoral neck fracture Post-op diagnosis: same Procedure: Left hip hemiarthroplasty Implants: Bhavesh accolade C #4 127 deg with +0 bipolar Surgeon: Uche Ruffin MD Anesthesia: GETA and local Was an Digital Forensics Investigator used for this Procedure?: Yes Digital Forensics Investigator: Joey Martinez Estimated blood loss (mL): 150 IV fluids (mL): 800 Pathology: other Condition: stable Disposition: PACU Procedure in detail: Patient was brought to the operative room placed in the lateral decubitus position. All bony prominences were well padded and the was prepped and draped in standard sterile fashion. IV antibiotics per weight were administered and a time-out was called to identify proper site proper procedure proper surgeon. Radiographs were available and confirmed. TXA was administered.. I began by making a curvilinear incision over the posterolateral aspect of the greater trochanter. Dissection was taken down to the tensor fascia which was incised in line with the incision and a Charnley retractor was placed. The hip was internally rotated and the external rotators were identified. All vessels in the area were cauterized and a full-thickness capsular/external rotator layer was developed in a hockey-stick fashion starting just proximal to the piriformis. This layer was tagged and the displaced femoral neck fracture was identified. Clean-up cuts was performed while protection the posterolateral soft tissues and the head was removed and measured (44 mm) on the back table. I then copiously irrigated the acetabulum and removed all bony fragments. Once this was done I used a cookie cutter to lateralize and a Charnley awl to identify the canal and then sequentially broached up to a 127 deg C4 . I then trialed with a standard head and a bipolar component matching the femoral head size. I was satisfied with the range of motion and stability and length. Therefore I removed all instrumentation and copiously irrigated. I then placed my final femoral implant and then retrialed. Her bone quality was poor and so I elected to cement in the stem. Using 4th generation cementation 2 bags of bone cement were mixed on the back table and the femur was cemented in in standard fashion. Once the cement was dry all excess cement was removed and again the bipolar componenets were re-trialed. I was satisfied with the +0/44 implant. My final bipolar componenets were then placed. I closed the capsular layer with FiberWire and then, after a three minute iodine soak and additional TXA administered. I performed a layered closure with dolores on skin. The patient was placed in sterile dressing extubated brought to recovery room in stable condition there were no known complications.
[2022-12-09] MEDS: Enoxaparin Sodium 40 MG/0.4 ML SYRINGE SUBCUT (13:51)
[2022-12-09] MEDS: polyethylene glycoL 3350 17 GM POWD.PACK PO (15:16)
[2022-12-09] MEDS: Lactulose 20 GM/30 ML SOLUTION PO (15:16)
[2022-12-09] MEDS: nitrofurantoin macrocrystaL 50 MG CAPSULE PO (21:11)
[2022-12-09] MEDS: Gabapentin 100 MG CAPSULE PO (21:12)
[2022-12-09] MEDS: QUEtiapine Fumarate 50 MG TABLET PO (21:12)
[2022-12-09] MEDS: 0.9 % Sodium Chloride Flush 3 ML SYRINGE IVFLUSH (21:13)
[2022-12-10] VITALS (8 sets, daily range): BP systolic 133–162; BP diastolic 65–77; PULSE 79–112; RESP 17–20; TEMP 36.3–36.8; O2SAT 92–98
[2022-12-10] MEDS: Lactated Ringers 1,000 ML 50 ML IVCONT (01:41)
[2022-12-10] MEDS: Omeprazole 20 MG CAPSULE.DR PO (05:35)
[2022-12-10] MEDS: oxyCODONE HCl Immed Release 5 MG TABLET PO ×3 (05:36→21:27)
[2022-12-10 06:30] LABS: Anion Gap 10 (12-20); Blood Urea Nitrogen 22 mg/dL (9-16); Calcium 7.6 mg/dL (8.4-10.2); Carbon Dioxide 26 mmol/L (22-29); Chloride 102 mmol/L (96-108); Creatinine Clr Calc Pharmacy 72.3; Estimated Glomerular Filt Rate > 60; Glucose Random 113 mg/dL (60-115); Potassium 3.6 mmol/L (3.3-5.1); Sodium 134 mmol/L (135-145)
[2022-12-10 06:52] LABS: Hematocrit 22.7 % (37.0-47.0); Hemoglobin 7.4 g/dl (12.0-16.0); Mean Corpuscular HGB Conc 32.6 g/dl (31.0-35.0); Mean Corpuscular Hemoglobin 31.2 pg (27.0-33.0); Mean Corpuscular Volume 95.8 fL (80.0-98.0); Mean Platelet Volume 9.6 fL (9.4-12.3); Platelet Count 164 X10*3/uL (160-400); Red Blood Count 2.37 X10*6/uL (4.20-5.50); Red Cell Distribution Width 13.4 % (11.0-16.0); White Blood Count 9.4 X10*3/uL (4.8-10.8)
--- NOTE | 2022-12-10 08:34 | PM.PNORT ---
Subjective Subjective Date of Service: 12/10/22 Interval history: POD3 s/p left hip elpidio. Patient is resting comfortably in bed. No overnight events. Confused at baseline. Denies any complaints. Physical Exam Vital Signs: Vital Signs: Last Vital Signs Temp 98.2 F 12/10/22 07:19 Pulse 86 12/10/22 07:19 Resp 17 12/10/22 07:19 BP 145/68 H 12/10/22 07:19 Pulse Ox 97 12/10/22 07:19 O2 Del Method Nasal Cannula 12/10/22 07:19 O2 Flow Rate 3 12/10/22 07:19 BMI result Body Mass Index 26.8 Const: General: cooperative, healthy appearing and no acute distress Resp: Effort & Inspection: normal respiratory effort and able to speak in complete sentences Cardio: Rate: regular rate Peripheral pulses: Peripheral pulses 2+ throughout GI: Palpation (GI): Soft to palpation Skin: Lesions: no lesions Rashes: no rashes Extrem: Other: Left hip banadages are c/d/i. Sensation reportedly intact. Calf supple. Able to dorsi/plantarflex. Procedures Date of Service Date of Service: 12/10/22 Progress Note: A&P Assessment and plan (1) Closed displaced fracture of left femoral neck: Status: Acute (2) Fall: Status: Acute Plan Continue pain mgmnt Continue Lovenox for dvt ppx Continue PT/OT for left hip elpidio - WBAT Dispo planning - PT, pain mgmnt, rehab once medically cleared. Time Spent With Patient Time: Total time managing care of this patient today ____ minutes. Quality Stroke Does the patient have a stroke diagnosis?: No VTE Prior VTE?: No VTE Risk Level:: Medical - moderate - high VTE Device Contraindication: N/A - Device Ordered VTE Drug Contraindication: N/A - Med Ordered
[2022-12-10] MEDS: 0.9 % Sodium Chloride Flush 3 ML SYRINGE IVFLUSH ×3 (09:25→19:38)
--- NOTE | 2022-12-10 10:09 | HO.PM.IMPN ---
Subjective Subjective Date of Service: 12/10/22 Interval History: more awake though mood labile pain controlled constipation improving Hb 7.4 this AM Review of Systems Review of Systems: Yes all other systems are reviewed and are negative Physical Exam Vital Signs: Vital Signs: Last Vital Signs Temp 98.2 F 12/10/22 07:19 Pulse 86 12/10/22 07:19 Resp 17 12/10/22 07:19 BP 145/68 H 12/10/22 07:19 Pulse Ox 97 12/10/22 07:19 O2 Del Method Nasal Cannula 12/10/22 07:19 O2 Flow Rate 3 12/10/22 07:19 BMI result Body Mass Index 26.8 Gen: awake, alert, not in acute distress HEENT: sclera anicteric, moist mucus membranes Neck: supple Lungs: clear to auscultation bilaterally Heart: regular, tachycardic, no murmurs Abd: soft, non-tender, non-distended Ext: L hip with dry dressing Skin: warm/well-perfused Neuro: alert and oriented to self + place Psych: appropriate affect Objective Data Active Medications Acetaminophen (Acetaminophen 325 Mg Tablet) 650 mg PO Q6H PRN PRN Reason: Pain, Mild (Pain Scale 1-3) Amlodipine Besylate (Amlodipine Besylate 5 Mg Tablet) 5 mg PO DAILY [facility]; Protocol Last Admin: 12/07/22 08:47 Dose: 5 mg Documented By: ADOLPH Ascorbic Acid (Ascorbic Acid 500 Mg Tablet) 500 mg PO DAILY [facility] Last Admin: 12/09/22 07:50 Dose: 500 mg Documented By: CALVIN Duloxetine HCl (Duloxetine Hcl 60 Mg Capsule.) 60 mg PO DAILY [facility] Last Admin: 12/08/22 08:01 Dose: 60 mg Documented By: CALVIN Enoxaparin Sodium (Enoxaparin Sodium 40 Mg/0.4 Ml Syringe) 40 mg SUBCUT Q24H [facility] Last Admin: 12/09/22 13:51 Dose: 40 mg Documented By: CALVIN Ferrous Sulfate (Ferrous Sulfate 324 Mg Tablet.) 324 mg PO DAILY [facility] Last Admin: 12/09/22 07:49 Dose: 324 mg Documented By: CALVIN Gabapentin (Gabapentin 100 Mg Capsule) 100 mg PO TID [facility] Last Admin: 12/09/22 21:12 Dose: 100 mg Documented By: MARILEE Cefazolin Sodium/Dextrose (Ancef) 2 gm in 50 mls @ 100 mls/hr IV POSTOP [facility] Metoprolol Succinate (Metoprolol Succinate Er 25 Mg Tab.Er.24h) 25 mg PO DAILY [facility]; Protocol Last Admin: 12/09/22 08:10 Dose: 25 mg Documented By: CALVIN Metoprolol Tartrate (Metoprolol Tartrate 50 Mg Tablet) 50 mg PO DAILY PRN; Protocol PRN Reason: Tachycardia Mirabegron (Mirabegron 50 Mg Tab.Er.24h) 50 mg PO DAILY [facility] Last Admin: 12/09/22 07:49 Dose: 50 mg Documented By: CALVIN Multivitamins/Vitamin C (Multivitamin Tablet) 1 tab PO DAILY [facility] Last Admin: 12/09/22 07:49 Dose: 1 tab Documented By: CALVIN Naloxone HCl (Naloxone Hcl 0.4 Mg/Ml Vial) 0.1 mg IVPUSH Q2M PRN PRN Reason: Respiratory Rate < 10 Nitrofurantoin Macrocrystals (Nitrofurantoin Macrocrystal 50 Mg Capsule) 50 mg PO BEDTIME [facility] Last Admin: 12/09/22 21:11 Dose: 50 mg Documented By: MARILEE Omeprazole (Omeprazole 20 Mg Capsule.) 20 mg PO DAILY@0630 [facility] Last Admin: 12/10/22 05:35 Dose: 20 mg Documented By: MARILEE Ondansetron HCl (Ondansetron Hcl 4 Mg/2 Ml Vial) 4 mg IVPUSH Q8H PRN PRN Reason: Nausea and Vomiting Oxycodone HCl (Oxycodone Hcl Immed Release 5 Mg Tablet) 5 mg PO BEDTIME [facility] Last Admin: 12/09/22 21:12 Dose: 5 mg Documented By: MARILEE Oxycodone HCl (Oxycodone Hcl Immed Release 5 Mg Tablet) 5 mg PO Q6H PRN PRN Reason: Breakthrough Pain Last Admin: 12/10/22 05:36 Dose: 5 mg Documented By: MARILEE Pharmacy Consult (Consult Rx Perform Med Rec) 1 each MISCELLANE ONCE PRN PRN Reason: Consult order Polyethylene Glycol (Polyethylene Glycol 3350 17 Gm Powd.Pack) 17 gm PO DAILY [facility] Last Admin: 12/10/22 09:24 Dose: Not Given Documented By: LIDA Non-Admin Reason: Patient Condition Contraindication Quetiapine Fumarate (Quetiapine Fumarate 50 Mg Tablet) 50 mg PO BEDTIME [facility] Last Admin: 12/09/22 21:12 Dose: 50 mg Documented By: MARILEE Senna (Sennosides 8.6 Mg Tablet) 8.6 mg PO DAILY PRN PRN Reason: Constipation Senna/Docusate Sodium (Sennosides/Docusate Sodium Tablet) 2 tab PO BID [facility] Last Admin: 12/10/22 09:24 Dose: Not Given Documented By: LIDA Non-Admin Reason: Patient Condition Contraindication Sodium Chloride (0.9 % Sodium Chloride Flush 3 Ml Syringe) 3 ml IVFLUSH QSHIFT [facility] Last Admin: 12/10/22 09:25 Dose: 3 ml Documented By: LIDA Vitamin D (Cholecalciferol (Vitamin D3) 25 Mcg Tablet) 25 mcg PO DAILY [facility] Last Admin: 12/09/22 07:49 Dose: 25 mcg Documented By: LIZABETHARTB Labs 12/10/22 05:38 12/10/22 05:38 Labs: Laboratory Results - last 24 hr 12/10/22 12/10/22 12/10/22 05:38 05:38 08:00 MCV 95.8 MCH 31.2 MCHC 32.6 RDW 13.4 Plt Count 164 MPV 9.6 Absolute Nucleated RBC 0.000 Nucleated RBC % (auto) 0.0 Anion Gap 10 L Estim Creat Clear Calc 72.3 Estimated GFR > 60 Random Glucose 113 Calcium 7.6 L Blood Type O Positive Antibody Screen NEGATIVE Assessment and Plan (1) Closed displaced fracture of left femoral neck: Status: Acute Plan hosp d#5 82yo F resident of an assisted living memory care unit with a history of Alzheimer-type dementia, chronic back pain s/p spinal fusion, HTN, SVT, recurrent UTI including most recently MDR-Enterobacter cloacae, and recent cefepime-induced encephalopathy presenting with acute L hip pain after a fall from a standing position.? She is found to have a mildly displaced subcapital L femur fracture and underwent L hemiarthroplasty on 12/07/22 # Femur fracture - POD#3 L hemiarthroplasty. Postop care per Ortho. PT eval; WBAT; Lovenox for VTE ppx. # Anemia due to orthopedic blood loss - Reviewed risks/benefits of transfusion with HCP/daughter Socorro Briones and will transfuse 1u pRBCs and recheck H+H in AM # Postoperative somnolence - Resolved after holding gabapentin + duloxetine + quetiapine- resumed these chronic meds yesterday # Hypotension # JOSETTE - Resolved; d/c LR # Acute hypoxic resp failure - Likely due to atelectasis. Encourage IS. Wean O2 as tolerated. # Hx SVT - Standing + prn metoprolol # HTN - Metoprolol and amlodipine, latter held for hypotension and then resumed today # Chronic back pain - On low-dose chronic oxycodone; resume duloxetine + gabapentin # Alzheimer dementia - Resume quetiapine # Recurrent UTI - Suppressive nitrofurantoin # VTE ppx: LMWH # Dispo: will need STR In my clinical judgment, the patient requires continued inpatient hospitalization for the following reasons: postop care + anemia requiring transfusion Time Spent With Patient Time: Total time managing care of this patient today ___35_ minutes. Quality Stroke Does the patient have a stroke diagnosis?: No VTE Prior VTE?: No VTE Risk Level:: Medical - moderate - high VTE Device Contraindication: N/A - Device Ordered VTE Drug Contraindication: N/A - Med Ordered
--- NOTE | 2022-12-10 10:20 | MHC.CM.PN ---
Per ROUNDS discussion, Patient needs a transfusion and is not yet medically cleared for dc. Patient may benefit from PT to assist with disposition (STR VS return to [facility]). CM will follow.
[2022-12-10] MEDS: amLODIPine Besylate 5 MG TABLET PO (11:21)
[2022-12-10] MEDS: Gabapentin 100 MG CAPSULE PO ×3 (11:21→21:26)
[2022-12-10] MEDS: Ascorbic Acid 500 MG TABLET PO (11:22)
[2022-12-10] MEDS: Ferrous Sulfate 324 MG TABLET.DR PO (11:22)
[2022-12-10] MEDS: Cholecalciferol (Vitamin D3) 25 MCG TABLET PO (11:22)
[2022-12-10] MEDS: Multivitamin TABLET 1 TAB PO (11:22)
[2022-12-10] MEDS: Mirabegron 50 MG TAB.ER.24H PO (11:22)
[2022-12-10] MEDS: Metoprolol Succinate ER 25 MG TAB.ER.24H PO (11:22)
[2022-12-10] MEDS: DULoxetine HCl 60 MG CAPSULE.DR PO (11:22)
[2022-12-10] MEDS: Enoxaparin Sodium 40 MG/0.4 ML SYRINGE SUBCUT (15:22)
[2022-12-10] MEDS: HYDROmorphone HCl 0.5 MG/0.5 ML SYRINGE 0.1 MG IVPUSH (19:38)
[2022-12-10] MEDS: nitrofurantoin macrocrystaL 50 MG CAPSULE PO (21:26)
[2022-12-10] MEDS: QUEtiapine Fumarate 50 MG TABLET PO (21:27)
[2022-12-11 03:28] VITALS: BP 142/69; PULSE 68; RESP 20; TEMP 36.4; O2SAT 97
[2022-12-11] MEDS: oxyCODONE HCl Immed Release 5 MG TABLET PO ×3 (03:52→20:14)
[2022-12-11] MEDS: Omeprazole 20 MG CAPSULE.DR PO (05:34)
[2022-12-11 07:10] LABS: Hematocrit 28.3 % (37.0-47.0); Hemoglobin 9.3 g/dl (12.0-16.0); Mean Corpuscular HGB Conc 32.9 g/dl (31.0-35.0); Mean Corpuscular Hemoglobin 31.2 pg (27.0-33.0); Mean Platelet Volume 9.3 fL (9.4-12.3); Platelet Count 151 X10*3/uL (160-400); Red Blood Count 2.98 X10*6/uL (4.20-5.50); Red Cell Distribution Width 13.2 % (11.0-16.0); White Blood Count 7.8 X10*3/uL (4.8-10.8)
[2022-12-11 07:13] VITALS: BP 151/80; PULSE 84; RESP 20; TEMP 37; O2SAT 97
[2022-12-11 07:32] LABS: Anion Gap 10 (12-20); Blood Urea Nitrogen 17 mg/dL (9-16); Calcium 7.7 mg/dL (8.4-10.2); Carbon Dioxide 27 mmol/L (22-29); Chloride 104 mmol/L (96-108); Creatinine Clr Calc Pharmacy 78.8; Estimated Glomerular Filt Rate > 60; Glucose Random 109 mg/dL (60-115); Potassium 3.8 mmol/L (3.3-5.1); Sodium 137 mmol/L (135-145)
--- NOTE | 2022-12-11 09:46 | PM.PNORT ---
Subjective Subjective Date of Service: 12/11/22 Interval history: POD 4 s/p left hip elpidio. Patient is resting comfortably in bed. No overnight events. Confused at baseline. Denies any complaints. Physical Exam Vital Signs: Vital Signs: Last Vital Signs Temp 98.6 F 12/11/22 07:13 Pulse 84 12/11/22 07:13 Resp 20 12/11/22 07:13 BP 151/80 H 12/11/22 07:13 Pulse Ox 97 12/11/22 07:13 O2 Del Method Nasal Cannula 12/11/22 07:13 O2 Flow Rate 4 12/11/22 07:13 BMI result Body Mass Index 26.8 Const: General: cooperative, healthy appearing and no acute distress Resp: Effort & Inspection: normal respiratory effort and able to speak in complete sentences Cardio: Rate: regular rate Peripheral pulses: Peripheral pulses 2+ throughout GI: Palpation (GI): Soft to palpation Skin: Lesions: no lesions Rashes: no rashes Extrem: Other: Left hip banadages are c/d/i. Sensation reportedly intact. Calf supple. Able to dorsi/plantarflex. Procedures Date of Service Date of Service: 12/11/22 Progress Note: A&P Assessment and plan (1) Closed displaced fracture of left femoral neck: Status: Acute (2) Fall: Status: Acute Plan Continue pain mgmnt Lovenox for dvt ppx Continue PT/OT for left hip elpidio - WBAT Dispo planning - PT, pain mgmnt, rehab once medically cleared. Time Spent With Patient Time: Total time managing care of this patient today ____ minutes. Quality Stroke Does the patient have a stroke diagnosis?: No VTE Prior VTE?: No VTE Risk Level:: Medical - moderate - high VTE Device Contraindication: N/A - Device Ordered VTE Drug Contraindication: N/A - Med Ordered
[2022-12-11] MEDS: Metoprolol Succinate ER 25 MG TAB.ER.24H PO (09:57)
[2022-12-11] MEDS: Gabapentin 100 MG CAPSULE PO ×3 (09:57→20:14)
[2022-12-11] MEDS: DULoxetine HCl 60 MG CAPSULE.DR PO (09:57)
[2022-12-11] MEDS: 0.9 % Sodium Chloride Flush 3 ML SYRINGE IVFLUSH ×3 (09:57→20:17)
[2022-12-11] MEDS: Ascorbic Acid 500 MG TABLET PO (09:57)
[2022-12-11] MEDS: Cholecalciferol (Vitamin D3) 25 MCG TABLET PO (09:57)
[2022-12-11] MEDS: amLODIPine Besylate 5 MG TABLET PO (09:57)
[2022-12-11] MEDS: Multivitamin TABLET 1 TAB PO (09:57)
[2022-12-11] MEDS: Ferrous Sulfate 324 MG TABLET.DR PO (09:57)
[2022-12-11] MEDS: Mirabegron 50 MG TAB.ER.24H PO (09:57)
[2022-12-11 11:16] VITALS: BP 149/73; PULSE 94; RESP 20; TEMP 36.8; O2SAT 97
--- NOTE | 2022-12-11 11:56 | P.PNIM_ITS ---
Subjective Subjective Date of Service: 12/11/22 Interval History: More awake O2 req down to 2L Pain controlled Review of Systems Review of Systems: Yes all other systems are reviewed and are negative Physical Exam Vital Signs: Vital Signs: Last Vital Signs Temp 98.3 F 12/11/22 11:16 Pulse 94 12/11/22 11:16 Resp 20 12/11/22 11:16 BP 149/73 H 12/11/22 11:16 Pulse Ox 97 12/11/22 11:16 O2 Del Method Nasal Cannula 12/11/22 11:16 O2 Flow Rate 2 12/11/22 11:16 BMI result Body Mass Index 26.8 Gen: awake, alert, not in acute distress HEENT: sclera anicteric, moist mucus membranes Neck: supple Lungs: clear to auscultation bilaterally Heart: regular, tachycardic, no murmurs Abd: soft, non-tender, non-distended Ext: L hip with dry dressing Skin: warm/well-perfused Neuro: alert and oriented to self + place Psych: appropriate affect Objective Data Active Medications Acetaminophen (Acetaminophen 325 Mg Tablet) 650 mg PO Q6H PRN PRN Reason: Pain, Mild (Pain Scale 1-3) Amlodipine Besylate (Amlodipine Besylate 5 Mg Tablet) 5 mg PO DAILY [facility]; Protoc ol Last Admin: 12/11/22 09:57 Dose: 5 mg Documented By: SHAZIA Ascorbic Acid (Ascorbic Acid 500 Mg Tablet) 500 mg PO DAILY [facility] Last Admin: 12/11/22 09:57 Dose: 500 mg Documented By: SHAZIA Duloxetine HCl (Duloxetine Hcl 60 Mg Capsule.) 60 mg PO DAILY [facility] Last Admin: 12/11/22 09:57 Dose: 60 mg Documented By: SHAZIA Enoxaparin Sodium (Enoxaparin Sodium 40 Mg/0.4 Ml Syringe) 40 mg SUBCUT Q24H [facility] Last Admin: 12/10/22 15:22 Dose: 40 mg Documented By: LIDA Ferrous Sulfate (Ferrous Sulfate 324 Mg Tablet.) 324 mg PO DAILY [facility] Last Admin: 12/11/22 09:57 Dose: 324 mg Documented By: SHAZIA Gabapentin (Gabapentin 100 Mg Capsule) 100 mg PO TID [facility] Last Admin: 12/11/22 09:57 Dose: 100 mg Documented By: SHAZIA Hydromorphone HCl (Hydromorphone Hcl 0.5 Mg/0.5 Ml Syringe) 0.1 mg IVPUSH DAILY PRN; Protocol PRN Reason: 30 prior to physical therapy Last Admin: 12/10/22 19:38 Dose: 0.1 mg Documented By: MILAGROS Cefazolin Sodium/Dextrose (Ancef) 2 gm in 50 mls @ 100 mls/hr IV POSTOP [facility] Metoprolol Succinate (Metoprolol Succinate Er 25 Mg Tab.Er.24h) 25 mg PO DAILY [facility]; Protocol Last Admin: 12/11/22 09:57 Dose: 25 mg Documented By: SHAZIA Metoprolol Tartrate (Metoprolol Tartrate 50 Mg Tablet) 50 mg PO DAILY PRN; Protocol PRN Reason: Tachycardia Mirabegron (Mirabegron 50 Mg Tab.Er.24h) 50 mg PO DAILY [facility] Last Admin: 12/11/22 09:57 Dose: 50 mg Documented By: SHAZIA Multivitamins/Vitamin C (Multivitamin Tablet) 1 tab PO DAILY [facility] Last Admin: 12/11/22 09:57 Dose: 1 tab Documented By: SHAZIA Naloxone HCl (Naloxone Hcl 0.4 Mg/Ml Vial) 0.1 mg IVPUSH Q2M PRN PRN Reason: Respiratory Rate < 10 Nitrofurantoin Macrocrystals (Nitrofurantoin Macrocrystal 50 Mg Capsule) 50 mg PO BEDTIME [facility] Last Admin: 12/10/22 21:26 Dose: 50 mg Documented By: MILAGROS Omeprazole (Omeprazole 20 Mg Capsule.) 20 mg PO DAILY@0630 [facility] Last Admin: 12/11/22 05:34 Dose: 20 mg Documented By: MILAGROS Ondansetron HCl (Ondansetron Hcl 4 Mg/2 Ml Vial) 4 mg IVPUSH Q8H PRN PRN Reason: Nausea and Vomiting Oxycodone HCl (Oxycodone Hcl Immed Release 5 Mg Tablet) 5 mg PO BEDTIME [facility] Last Admin: 12/10/22 21:27 Dose: 5 mg Documented By: MILAGROS Oxycodone HCl (Oxycodone Hcl Immed Release 5 Mg Tablet) 5 mg PO Q6H PRN PRN Reason: Breakthrough Pain Last Admin: 12/11/22 03:52 Dose: 5 mg Documented By: MILAGROS Pharmacy Consult (Consult Rx Perform Med Rec) 1 each MISCELLANE ONCE PRN PRN Reason: Consult order Polyethylene Glycol (Polyethylene Glycol 3350 17 Gm Powd.Pack) 17 gm PO DAILY PRN PRN Reason: constipation Quetiapine Fumarate (Quetiapine Fumarate 50 Mg Tablet) 50 mg PO BEDTIME [facility] Last Admin: 12/10/22 21:27 Dose: 50 mg Documented By: MILAGROS Senna/Docusate Sodium (Sennosides/Docusate Sodium Tablet) 2 tab PO BID PRN PRN Reason: constipation Sodium Chloride (0.9 % Sodium Chloride Flush 3 Ml Syringe) 3 ml IVFLUSH QSHIFT [facility] Last Admin: 12/11/22 09:57 Dose: 3 ml Documented By: SHAZIA Vitamin D (Cholecalciferol (Vitamin D3) 25 Mcg Tablet) 25 mcg PO DAILY [facility] Last Admin: 12/11/22 09:57 Dose: 25 mcg Documented By: SHAZIA Labs 12/11/22 07:01 12/11/22 07:01 Labs: Laboratory Results - last 24 hr 12/11/22 12/11/22 07:01 07:01 MCV 95.0 MCH 31.2 MCHC 32.9 RDW 13.2 Plt Count 151 L MPV 9.3 L Absolute Nucleated RBC 0.000 Nucleated RBC % (auto) 0.0 Anion Gap 10 L Estim Creat Clear Calc 78.8 Estimated GFR > 60 Random Glucose 109 Calcium 7.7 L Assessment and Plan (1) Closed displaced fracture of left femoral neck: Status: Acute Plan hosp d#6 82yo F resident of an assisted living memory care unit with a history of Al zheimer-type dementia, chronic back pain s/p spinal fusion, HTN, SVT, recurrent UTI including most recently MDR-Enterobacter cloacae, and recent cefepime- induced encephalopathy presenting with acute L hip pain after a fall from a standing position.? She is found to have a mildly displaced subcapital L femur fracture and underwent L hemiarthroplasty on 12/07/22 # Femur fracture - POD#4 L hemiarthroplasty. Postop care per Ortho. PT eval; WBAT; Lovenox for VTE ppx. # Anemia due to orthopedic blood loss - Transfused 1u pRBCs on 12/09/22 with appropriate rise in H+H # Postoperative somnolence - Resolved after holding gabapentin + duloxetine + quetiapine- resumed these chronic meds 12/09/22 # Hypotension # JOSETTE - Resolved afer fluid resuscitation and transfusion # Acute hypoxic resp failure - Likely due to atelectasis. Encourage IS. Continue to wean O2 as tolerated. # Hx SVT - Standing + prn metoprolol # HTN - Metoprolol and amlodipine, latter held for hypotension and then resumed yester day # Chronic back pain - On low-dose chronic oxycodone; resumed duloxetine + gabapentin # Alzheimer dementia - Resumed quetiapine # Recurrent UTI - Suppressive nitrofurantoin # VTE ppx: LMWH # Dispo: will need STR In my clinical judgment, the patient requires continued inpatient hospitalizatio n for the following reasons: postop care + anemia requiring transfusion Time Spent With Patient Time: Total time managing care of this patient today __35__ minutes. Quality Stroke Does the patient have a stroke diagnosis?: No VTE Prior VTE?: No VTE Risk Level:: Medical - moderate - high VTE Device Contraindication: N/A - Device Ordered VTE Drug Contraindication: N/A - Med Ordered
[2022-12-11] MEDS: Enoxaparin Sodium 40 MG/0.4 ML SYRINGE SUBCUT (14:08)
[2022-12-11] MEDS: Acetaminophen 325 MG TABLET 650 MG PO (14:09)
--- NOTE | 2022-12-11 14:33 | MHC.CM.PN ---
CM met with Patient and her Daughter/Dimple at bedside. [facility] is first choice SNF and thus far, Patient has been accepted there. CM will follow. Dimple is the Primary Contact and her # is [phone].
[2022-12-11 15:49] VITALS: BP 128/59; PULSE 89; RESP 20; TEMP 37.2; O2SAT 94
--- NOTE | 2022-12-11 18:44 | PC.NURSE ---
Per provider order's lennon d/c at 1600 patient tolerated procedure well, patient is due to void by 2200
[2022-12-11 19:37] VITALS: BP 151/82; PULSE 100; RESP 20; TEMP 36.1; O2SAT 92
[2022-12-11] MEDS: QUEtiapine Fumarate 50 MG TABLET PO (20:14)
[2022-12-11] MEDS: nitrofurantoin macrocrystaL 50 MG CAPSULE PO (20:15)
[2022-12-12] VITALS: BP 167/82; PULSE 87; RESP 20; TEMP 36.1; O2SAT 94
[2022-12-12 03:23] VITALS: BP 180/90; PULSE 92; RESP 20; TEMP 36.1; O2SAT 96
[2022-12-12] MEDS: oxyCODONE HCl Immed Release 5 MG TABLET PO (03:31)
[2022-12-12] MEDS: Omeprazole 20 MG CAPSULE.DR PO (05:59)
[2022-12-12 07:18] VITALS: BP 146/60; PULSE 89; RESP 20; TEMP 36.8; O2SAT 95
[2022-12-12] MEDS: Acetaminophen 325 MG TABLET 650 MG PO (08:42)
[2022-12-12] MEDS: DULoxetine HCl 60 MG CAPSULE.DR PO (08:43)
[2022-12-12] MEDS: Ferrous Sulfate 324 MG TABLET.DR PO (08:43)
[2022-12-12] MEDS: Gabapentin 100 MG CAPSULE PO (08:43)
[2022-12-12] MEDS: Mirabegron 50 MG TAB.ER.24H PO (08:43)
[2022-12-12] MEDS: Multivitamin TABLET 1 TAB PO (08:43)
[2022-12-12] MEDS: amLODIPine Besylate 5 MG TABLET PO (08:43)
[2022-12-12] MEDS: Metoprolol Succinate ER 25 MG TAB.ER.24H PO (08:43)
[2022-12-12] MEDS: Cholecalciferol (Vitamin D3) 25 MCG TABLET PO (08:43)
[2022-12-12] MEDS: Ascorbic Acid 500 MG TABLET PO (08:43)
[2022-12-12] MEDS: 0.9 % Sodium Chloride Flush 3 ML SYRINGE IVFLUSH (08:44)
[2022-12-12 12:00] VITALS: BP 134/74; PULSE 80; RESP 20; TEMP 36.9; O2SAT 97
--- NOTE | 2022-12-12 12:12 | PM.DS ---
DS: Providers Provider Date of Service: 12/12/22 Date of admission: 12/06/22 15:55 Date of discharge: 12/12/22 Primary care physician: LUIS A Barry Consults: 12/06/22 15:58 Consult to Orthopedics Routine Consulting Provider: [facility] Reason for consultation: hip fracture DS: Diagnosis Discharge Diagnosis (1) Closed displaced fracture of left femoral neck: Status: Acute (2) Fall: Status: Acute (3) Anemia, blood loss: Status: Acute (4) Acute respiratory failure with hypoxia: Status: Resolved (5) Acute kidney failure: Status: Acute (6) Postoperative hypotension: Status: Acute DS: Summary Hospital Course Hospital Course: From my admission H+P, 12/06/22: Ms Briones is an 82yo F resident of an assisted living [facility] care unit with a history of Alzheimer-type dementia, chronic back pain s/p spinal fusion, HTN, SVT, and recurrent UTIs who was recently admitted to [facility] 11/20-11/23 for multidrug-resistant Eneterobacter cloacae UTI treated with cefepime, then re-admitted here 11/24-11/28 for encephalopathy attributed to the cefepime.? Ultimately, her UTI was treated with ertapenem.? She just progressed out of a wheelchair 2 days ago but then fell from a standing position today.? She hit her head but denies any LOC.? She developed immediate severe pain of the left hip.? She doesn't remember if she was dizzy or lighteaded before the fall; she thinks she was more weak than anything else.? She denies headache.? She denies chest pain or palpitations.? No dyspnea at rest or exertion.? CT of the head and C-spine were negative for acute pathology.? X-ray showed an acute, displaced subcapital left femoral neck fracture. 82yo F resident of an assisted living memory care unit with a history of Alzheimer-type dementia, chronic back pain s/p spinal fusion, HTN, SVT, recurrent UTI including most recently MDR-Enterobacter cloacae, and recent cefepime-induced encephalopathy presenting with acute L hip pain after a fall from a standing position.? She is found to have a mildly displaced subcapital L femur fracture. She was admitted to the hospitalist service with Orthopedics consultation and underwent L hemiarthroplasty on 12/07/22. Hospital course by problem: # Femur fracture - 12/12/22 is POD#5 L hemiarthroplasty.? To SNF for short-term rehabilitation. Lovenox for VTE ppx for 30 days postoperative. # Anemia due to orthopedic blood loss - Transfused 1u pRBCs on 12/09/22 with appropriate rise in H+H. # Postoperative somnolence - Resolved after holding gabapentin + duloxetine + quetiapine- resumed these chronic meds 12/09/22 without issues. # Hypotension # JOSETTE - Resolved after fluid resuscitation and transfusion. # Acute hypoxic resp failure - Likely due to atelectasis.? Encourage IS.? Continue to wean O2 as tolerated. Currently SaO2 97% on 2L O2. Time Spent with Patient Time attestation: Total time managing care of this patient today ___40_ minutes. Discharge coordination time: Greater than 30 minutes Quality: Safe Use of Opioids Does Pt have an Active Cancer Diagnosis on the Problem List?: No Quality: Stroke Does the patient have a stroke diagnosis?: No Physical Exam Vital Signs: Vital Signs: Last Vital Signs Temp 98.5 F 12/12/22 12:00 Pulse 80 12/12/22 12:00 Resp 20 12/12/22 12:00 BP 134/74 12/12/22 12:00 Pulse Ox 97 12/12/22 12:00 O2 Del Method Nasal Cannula 12/12/22 12:00 O2 Flow Rate 2 12/12/22 12:00 BMI result Body Mass Index 26.8 Gen: awake, alert, not in acute distress HEENT: sclera anicteric, moist mucus membranes Neck: supple Lungs: clear to auscultation bilaterally Heart: regular, tachycardic, no murmurs Abd: soft, non-tender, non-distended Ext: L hip with dry dressing Skin: warm/well-perfused Neuro: alert and oriented to self + place Psych: appropriate affect DS: Data Data Completed and Pending Completed studies during hospitalization [Text1]: Laboratory Results WBC 7.8 X10*3/uL (4.8-10.8) 12/11/22 07:01 RBC 2.98 X10*6/uL (4.20-5.50) L D 12/11/22 07:01 Hgb 9.3 g/dl (12.0-16.0) L D 12/11/22 07:01 Hct 28.3 % (37.0-47.0) L D 12/11/22 07:01 MCV 95.0 fL (80.0-98.0) 12/11/22 07:01 MCH 31.2 pg (27.0-33.0) 12/11/22 07:01 MCHC 32.9 g/dl (31.0-35.0) 12/11/22 07:01 RDW 13.2 % (11.0-16.0) 12/11/22 07:01 Plt Count 151 X10*3/uL (160-400) L 12/11/22 07:01 MPV 9.3 fL (9.4-12.3) L 12/11/22 07:01 Immature Gran % (Auto) 1.2 % (0.0-0.4) H 12/07/22 20:48 Neut % (Auto) 88.3 % (45-73) H 12/07/22 20:48 Lymph % (Auto) 5.9 % (20-40) L 12/07/22 20:48 [place] % (Auto) 3.8 % (2-11) 12/07/22 20:48 Eos % (Auto) 0.2 % (0-4) 12/07/22 20:48 Baso % (Auto) 0.6 % (0-2) 12/07/22 20:48 Lymph # (Auto) 0.7 X10*3/uL (1.2-4.9) L 12/07/22 20:48 [place] # (Auto) 0.5 X10*3/uL (0.1-1.2) 12/07/22 20:48 Eos # (Auto) 0.0 X10*3/uL (0.0-0.4) 12/07/22 20:48 Baso # (Auto) 0.1 X10*3/uL (0.0-0.2) 12/07/22 20:48 Abs Immat Gran (auto) 0.15 X10*3/uL (0.00-0.03) H 12/07/22 20:48 Absolute Neuts (auto) 11.1 x10*3/uL (2.0-8.3) H 12/07/22 20:48 Absolute Nucleated RBC 0.000 X10*3/uL (0.0-0.012) 12/11/22 07:01 Nucleated RBC % (auto) 0.0 /100WBC (0.0-0.2) 12/11/22 07:01 PT 11.1 SEC (10.0-13.1) 12/06/22 09:25 INR 1.0 (0.9-1.1) 12/06/22 09:25 APTT 31.0 SEC (26.0-36.4) 12/06/22 09:25 O2 Saturation 93.0 % 12/08/22 15:24 ABG pH at Pt Temp 7.43 (7.35-7.45) 12/08/22 15:24 ABG pCO2 at Pt Temp 46 mmHg (32-45) H 12/08/22 15:24 ABG pO2 at Pt Temp 74 mmHg (83-108) L 12/08/22 15:24 ABG HCO3 31 mmol/L (22-26) H 12/08/22 15:24 ABG Base Excess (Actual) 6.8 mmol/L 12/08/22 15:24 Sodium 137 mmol/L (135-145) 12/11/22 07:01 Potassium 3.8 mmol/L (3.3-5.1) 12/11/22 07:01 Chloride 104 mmol/L (96-108) 12/11/22 07:01 Carbon Dioxide 27 mmol/L (22-29) 12/11/22 07:01 Anion Gap 10 (12-20) L 12/11/22 07:01 BUN 17 mg/dL (9-16) H 12/11/22 07:01 Creatinine 0.56 mg/dL (0.5-1.4) 12/11/22 07:01 Estim Creat Clear Calc 78.8 12/11/22 07:01 Estimated GFR > 60 12/11/22 07:01 Random Glucose 109 mg/dL (60-115) 12/11/22 07:01 Calcium 7.7 mg/dL (8.4-10.2) L 12/11/22 07:01 Total Bilirubin 0.7 mg/dL (0.0-1.0) 12/08/22 16:16 AST 33 U/L (5-31) H 12/08/22 16:16 ALT 17 U/L (0-31) 12/08/22 16:16 Alkaline Phosphatase 82 U/L (39-117) 12/08/22 16:16 Ammonia 26 umol/L (13-55) 12/08/22 16:16 Total Protein 5.2 g/dL (6.5-8.0) L 12/08/22 16:16 Albumin 3.1 g/dL (3.5-5.0) L 12/08/22 16:16 Lipase 16 U/L (8-78) 12/06/22 09:25 Vitamin B12 530 pg/mL (200-900) 12/08/22 16:16 Folate 17.0 ng/mL (> or = 4.0) 12/08/22 16:16 TSH 1.87 uIU/mL (0.32-4.0) 12/08/22 16:16 COVID-19 (TALIB) Negative (Negative) 12/12/22 10:00 COVID-19 Clin Com See Note 12/12/22 10:00 Blood Type O Positive 12/10/22 08:00 Antibody Screen NEGATIVE 12/10/22 08:00 Crossmatch See Detail 12/10/22 08:00 Impressions Femur X-Ray 12/06/22 09:52 IMPRESSION: 1. Acute, mildly displaced subcapital left femoral neck fracture. 2. Minimal bilateral hip osteoarthritis. Cervical Spine CT 12/06/22 10:14 IMPRESSION: Multilevel degenerative changes without overt acute osseous or hardware abnormality. No significant change. Knee X-Ray 12/06/22 16:14 IMPRESSION: Limited study without overt fracture or significant degenerative changes. Pelvis X-Ray 12/08/22 07:45 IMPRESSION: Normal alignment at the left hip, status post hemiarthroplasty placement. No periprosthetic fracture. Chest X-Ray 12/08/22 07:59 IMPRESSION: No significant acute parenchymal disease. Chronic findings as described. Head CT 12/08/22 16:52 IMPRESSION: 1. No acute intracranial abnormality. Pending studies at discharge: Pending at discharge 12/07/22 15:32 Surgical [PTH] Routine Discharge Plan Discharge Anticipated Discharge Date/Time: 12/12/22 15:00 Patient Disposition: er SNF Discharge Diagnosis: subcapital L femur fracture, s/p hemiarthroplasty 12/07/22 anemia due to orthopedic blood loss postoperative somnolence, resolved JOSETTE, resolved acute hypoxic respiratory failure Referrals: Uche Ruffin MD [Physician] - 1 Week Thelma Obrien PA [Primary Care Provider] - 1 Week Discharge Medications: New polyethylene glycol 3350 17 gram Powder In Packet 17 g PO DAILY PRN (Reason: constipation) Qty: 30 0RF enoxaparin 40 mg/0.4 mL Syringe 40 mg subcut Q24H 25 Days Qty: 10 0RF Continued multivitamin Tablet 1 tab PO DAILY docusate sodium 100 mg Capsule 100 mg PO BID cholecalciferol (vitamin D3) 25 mcg (1,000 unit) Tablet 25 mcg PO DAILY ferrous sulfate 325 mg (65 mg iron) Tablet 325 mg PO DAILY sennosides [senna] 8.6 mg Tablet 8.6 mg PO DAILY PRN (Reason: Constipation) nitrofurantoin macrocrystal 50 mg Capsule 50 mg PO BEDTIME Rx Instructions: must administer with a meal/food acetaminophen 500 mg Tablet 1,000 mg PO Q6H PRN (Reason: Pain) Rx Instructions: not to exceed 8 tabs / 24 hrs ascorbic acid (vitamin C) [Vitamin C] 500 mg Tablet 500 mg PO DAILY metoprolol tartrate 50 mg Tablet 50 mg PO DAILY PRN (Reason: Tachycardia) oxycodone 5 mg tablet 5 mg PO BEDTIME Qty: 3 0RF oxycodone 5 mg tablet 5 mg PO Q6H PRN (Reason: Breakthrough Pain) Qty: 12 0RF amlodipine 5 mg tablet 5 mg PO DAILY omeprazole 20 mg capsule,delayed release(DR/EC) 20 mg PO DAILY@0630 gabapentin 100 mg capsule 100 mg PO TID metoprolol succinate 25 mg tablet extended release 24 hr 25 mg PO DAILY duloxetine 60 mg capsule,delayed release(DR/EC) 60 mg PO DAILY quetiapine 50 mg tablet 50 mg PO BEDTIME Myrbetriq 50 mg tablet extended release 24 hr 50 mg PO DAILY Discharge Orders: Discharge Order (Routine); Ordered 12/12/22 Ordered By: Regis Mann Diet: Advance to usual diet Activity on Discharge: As tolerated Stand Alone Forms: Patient Portal Discharge page Care Plan Goals: recover from hip fracture Health Concerns: subcapital L femur fracture, s/p hemiarthroplasty 12/07/22 anemia due to orthopedic blood loss postoperative somnolence, resolved JOSETTE, resolved acute hypoxic respiratory failure Plan of Treatment: physical therapy, ambulate with walker as tolerated enoxaparin 40 mg subcutaneously daily for total 30 days postoperatively wean oxygen as tolerated, use incentive spirometry frequently follow up with [facility] in 1-2 weeks Please follow up with your primary care doctor within 1 week of discharge from SNF rehab. Return to the hospital if you experience recurrent or worsening symptoms. Assessment: See Discharge Summary. Discharge Date/Time: 12/12/22 13:14
[2022-12-12 12:20] LABS: COVID-19 Test Negative (Negative); IDNOW Serial# 55D5AD1C
== END 2022-12-12 13:14 | disposition skilled nursing facility (03) | DRG 521 ==
LOC: HO.ED 13:29 → HO.EDOVER 16:00 → HO.IMC 17:09
PROVIDERS: Internal Medicine; Orthopaedic Surgery; Admitting Provider Family Medicine; Emergency Provider Emergency Medicine Emergency Medical Services; PCP Physician Assistant Medical; Visit Provider Family Medicine
PROC: 0SRS0J9 Replacement of Left Hip Joint, Femoral Surface with Synthetic Substitute, Cemented, Open Approach (ICD-10-PCS; CPT 27125; principal; 2022-12-07 13:40)
DX: S72.012A Unspecified intracapsular fracture of left femur, initial encounter for closed fracture (principal); J95.821 Acute postprocedural respiratory failure; J98.11 Atelectasis; W19.XXXA Unspecified fall, initial encounter; I95.81 Postprocedural hypotension; Z66 Do not resuscitate; G30.9 Alzheimer's disease, unspecified; D50.0 Iron deficiency anemia secondary to blood loss (chronic); F02.80 Dementia in other diseases classified elsewhere, unspecified severity, without behavioral disturbance, psychotic disturbance, mood disturbance, and anxiety; Z98.1 Arthrodesis status; Z87.891 Personal history of nicotine dependence; Z87.440 Personal history of urinary (tract) infections; Z79.899 Other long term (current) drug therapy
CPT/HCPCS: 36415; 36600; 70450; 71045; 72125; 72170; 73552; 73560; 80048; 80053; 82140; 82607; 82746; 82803; 83690; 84443; 85025; 85027; 85610; 85730; 86850; 86900; 86901; 86923; 87635; 88305; 88307; 88311; 93005; 93306; 97163; 97166; 97530; 99285; C1713; C1758; C1776; J0131; J0690; J1100; J1170; J1650; J1885; J2270; J2370; J2405; J2795; J3010; P9016

== ENCOUNTER 2022-12-20 06:09 | Outpatient (REF) | payer OTHER, MEDICARE, SELFPAY ==
--- NOTE | ~2022-12-20 | XR_ITS ---
EXAMINATION: XR HIP, LEFT CLINICAL INFORMATION: Hip pain. COMPARISON: 12/08/2022 TECHNIQUE: Two views of the left hip. FINDINGS: Left hip arthroplasty remains in place. Findings are unchanged when compared to the postop study from 12/08/2022. Surgical dolores are still present. Vascular calcifications are seen. Degenerative changes are noted in the lower lumbosacral spine. Mild degenerative changes are present in the right hip. XR/XR hip LT w [id number] IMPRESSION: Unchanged appearance of left hip arthroplasty. No acute finding.
== END 2022-12-20 06:10 | disposition home or self-care (01) ==
LOC: HO.HOSX 06:09
PROVIDERS: Visit Provider Physician Assistant
DX: S72.002D Fracture of unspecified part of neck of left femur, subsequent encounter for closed fracture with routine healing (principal)
CPT/HCPCS: 73502; 99212

== ENCOUNTER 2023-01-31 07:06 | Outpatient (REF) | payer MEDICARE, SELFPAY | END 2023-01-31 07:07 | disposition home or self-care (01) | LOC: HO.HOSX 07:06 | PROVIDERS: Visit Provider Physician Assistant | DX: Z13.89 Encounter for screening for other disorder (principal) ==

== ENCOUNTER 2023-06-08 04:49 | Emergency (ER) | payer MEDICARE, SELFPAY ==
--- NOTE | 2023-06-08 | ECG_ITS ---
Test Reason : FALL Blood Pressure : / mmHG Vent. Rate : 066 BPM Atrial Rate : 066 BPM P-R Int : 190 ms QRS Dur : 082 ms QT Int : 394 ms P-R-T Axes : 043 -02 034 degrees QTc Int : 413 ms Normal sinus rhythm Normal ECG When compared with ECG of 06-DEC-2022 09:11, Premature ventricular complexes are no longer Present Vent. rate has decreased BY 32 BPM Referred By: Generic ED Physician Electronically Signed By:CHARLEY DENNIS MD
--- NOTE | ~2023-06-08 | XR_ITS ---
EXAMINATION: XR SHOULDER, RIGHT CLINICAL INFORMATION: Unwitnessed fall, pain COMPARISON: None available. TECHNIQUE: Two views of the right shoulder. FINDINGS: No evidence of acute fracture or malalignment. Glenohumeral joint space is well-preserved. Acromioclavicular joint is unremarkable. Coracoclavicular distance is normal. Ovoid focus of mineralization adjacent to the greater tuberosity. Soft tissues are unremarkable. Incompletely visualized thoracic spinal fusion hardware. XR/XR shoulder RT min 2V IMPRESSION: 1. No evidence of acute fracture or malalignment. 2. Ovoid focus of mineralization adjacent to the greater tuberosity may reflect calcific tendinosis.
--- NOTE | ~2023-06-08 | CT_ITS ---
EXAMINATION: NONCONTRAST HEAD CT NONCONTRAST CERVICAL SPINE CT INDICATION INFORMATION: Unwitnessed fall COMPARISON: 12/08/2022 TECHNIQUE: Separate noncontrast CT examinations of the head and cervical spine were performed. Coronal head CT images and coronal and sagittal cervical spine images were created at the technologist workstation. DLP: 643, 230 mGy-cm DOSE LOWERING TECHNIQUES: This CT examination was performed using dose optimization techniques as appropriate, variously including the following: - Automated exposure control - Adjustment of mA and/or kV according to patient size (this includes techniques or standardized protocols for targeted exams were dose is matched to indication/reason for exam; i.e. extremities or head) - Use of iterative reconstruction technique FINDINGS: Head: There is no evidence of acute intracranial hemorrhage or territorial infarction. No abnormal mass-effect or midline shift is seen. Cruz to white matter differentiation is well preserved. No extra-axial fluid collections are identified. The ventricles are normal in size. There is moderate periventricular white matter hypoattenuation consistent with chronic small vessel ischemic disease. Moderate volume loss is noted. The osseous structures and soft tissues are normal. Partially opacified bilateral ethmoid air cells. Mucosal thickening of the left frontal sinus. The mastoid air cells are well-aerated. Cervical spine: There is anatomic alignment of the vertebral bodies and posterior elements. Vertebral body heights are maintained. There is degenerative change at the atlantodens articulation. Mild to moderate multilevel facet arthropathy. Fusion hardware is present at C6-C7. There is ankylosis across the disc space at C5-C6. Disc space narrowing at C4-C5 with endplate osteophytes. No evidence of acute fracture. No prevertebral soft tissue swelling. Partial visualization of fusion hardware in the thoracic spine. Visualized portions of the lung apices are unremarkable. The thyroid gland is unremarkable. CT/CT cervical spine wo IV con IMPRESSION: HEAD: No acute intracranial findings. Chronic small vessel ischemic disease and volume loss. CERVICAL SPINE: No acute findings identified. Chronic and postoperative changes as noted above.
[2023-06-08 04:54] VITALS: BP 154/90; PULSE 72; O2SAT 100
[2023-06-08 05:16] VITALS: BMI 30.9
[2023-06-08 05:18] VITALS: BP 160/67; PULSE 65; RESP 15; TEMP 36.5; O2SAT 99
[2023-06-08 06:09] VITALS: BP 174/67; PULSE 75; RESP 16; TEMP 36.5; O2SAT 96
--- NOTE | 2023-06-08 06:23 | ED.GENADULT ---
HPI - General Adult General Chief complaint: Fall Stated complaint: FALL Time Seen by Provider: 06/08/23 06:23 Source: patient, EMS and RN notes reviewed Mode of arrival: EMS Limitations: altered mental status History of Present Illness HPI narrative: Patient is an 83-year-old female with history of Alzheimer's dementia, HTN, recurrent UTIs presenting to the emergency department from the [facility] after unwitnessed fall, patient found on the floor. Unknown head strike or loss of consciousness. Unknown anticoagulation. Patient mentating at baseline per staff. Patient complains of right shoulder pain worse with movement. MD complaint: unwitnessed fall Onset (ago): hour(s) Location: right Exacerbating factors: movement Treatments prior to arrival: other (c-collar applied by EMS) Related Data Home Medications Medication Instructions Recorded Confirmed cholecalciferol (vitamin D3) 25 25 mcg PO DAILY 08/21/22 12/06/22 mcg (1,000 unit) tablet docusate sodium 100 mg capsule 100 mg PO BID 08/21/22 12/06/22 multivitamin 1 tab PO DAILY 08/21/22 12/06/22 ferrous sulfate 325 mg (65 mg 325 mg PO DAILY 10/09/22 12/06/22 iron) tablet amlodipine 5 mg tablet 5 mg PO DAILY 11/24/22 12/06/22 duloxetine 60 mg capsule,delayed 60 mg PO DAILY 11/24/22 12/06/22 release gabapentin 100 mg capsule 100 mg PO TID 11/24/22 12/06/22 metoprolol succinate 25 mg 25 mg PO DAILY 11/24/22 12/06/22 tablet,extended release 24 hr mirabegron 50 mg tablet,extended 50 mg PO DAILY 11/24/22 12/06/22 release 24 hr (Myrbetriq) omeprazole 20 mg capsule,delayed 20 mg PO DAILY@0630 11/24/22 12/06/22 release quetiapine 50 mg tablet 50 mg PO BEDTIME 11/24/22 12/06/22 acetaminophen 500 mg tablet 1,000 mg PO Q6H PRN Pain 12/06/22 12/06/22 ascorbic acid (vitamin C) 500 mg 500 mg PO DAILY 12/06/22 12/06/22 tablet (Vitamin C) metoprolol tartrate 50 mg tablet 50 mg PO DAILY PRN Tachycardia 12/06/22 12/06/22 nitrofurantoin macrocrystal 50 mg 50 mg PO BEDTIME 12/06/22 12/06/22 capsule sennosides 8.6 mg tablet (senna) 8.6 mg PO DAILY PRN Constipation 12/06/22 12/06/22 Previous Rx's Medication Instructions Recorded enoxaparin 40 mg/0.4 mL 40 mg (0.4 mL) subcut Q24H 25 days 12/12/22 subcutaneous syringe #10 mL oxycodone 5 mg tablet 5 mg PO BEDTIME #3 tabs 12/12/22 oxycodone 5 mg tablet 5 mg PO Q6H PRN Breakthrough Pain 12/12/22 #12 tabs polyethylene glycol 3350 17 gram 17 g PO DAILY PRN constipation #30 12/12/22 oral powder packet ea Allergies Allergy/AdvReac Type Severity Reaction Status Date / Time cefepime Allergy Unknown Verified 06/08/23 05:42 Review of Systems Review of Systems: As per HPI. 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 via [employer]) Unable to assess alcohol history related to: Unknown Alcohol intake: never Comment: 1:1 sitter Patient Tobacco Use Status: Former Tobacco user Tobacco use type: Cigarette e-Cigarette/Vaping Use: Never Used Second Hand Smoke Exposure: No Advance Directives: Yes Advance Directives on File: Yes Advance Directives Date on File: 06/01/22 service: No Current occupational status: retired Physical Exam ED Vital Signs: Vital Signs - 24 hr 06/08/23 05:18 06/08/23 06:09 Temperature 97.7 F 97.7 F Pulse Rate 65 75 Respiratory Rate 15 16 Blood Pressure 160/67 H 174/67 H Pulse Oximetry 99 96 Oxygen Delivery Method Room Air Room Air BMI result Body Mass Index 30.9 Vital signs have been reviewed and appear to be correct. Blood pressure elevated. Heart rate normal. Respiratory rate normal. Temperature normal. Oxygen saturation normal. Const General: cooperative and no acute distress Orientation/consciousness: oriented to person [facility] Head: Yes normocephalic and Yes atraumatic Ears: external ears normal and TM's normal bilaterally General nose exam: Normal external nose present, Normal nasal mucous membranes and turbinates present and Normal septum present Face and sinus: Yes face symmetric Mouth: oropharynx normal and moist mucous membranes Throat: Yes uvula midline Eyes Pupils: Equal, round and reactive pupils present Neck Neck: Yes normal visual inspection and Yes supple Resp Effort & Inspection: normal respiratory effort and able to speak in complete sentences Auscultation: clear to auscultation bilaterally Cardio Rate: regular rate Rhythm: regular rhythm Heart sounds: S1 normal heart sound present and S2 normal heart sound present GI Palpation (GI): Soft to palpation and nontender Auscultation: normoactive bowel sounds General: Yes no CVA tenderness Back/Spine/Pelvis Back: no CVA tenderness Cervical Spine: No Cervical spine tenderness and No step off deformity Thoracic/Lumbar Spine: thoracic and lumbar spine normal to inspection, No thoracic spinal tenderness and No lumbar spinal tenderness Pelvis: no pain with anterior-posterior compression and no pain with lateral compression Skin General skin exam: elasticity normal and turgor normal Neuro General: oriented to person, tone normal, moves all extremities, no focal motor deficits and CN's II-XI intact bilaterally Cranial nerves: Yes Equal, round and reactive pupils present Cognition (Neuro): normal cognition Motor exam (neuro): 5/5 motor strength present throughout Extrem General: Yes full ROM, Yes no pedal edema and Yes no calf tenderness Right upper extremity: shoulder/upper arm Details: normal to inspection, normal ROM and other (patient reporting pain with ROM); no tenderness Left lower extremity: lower leg Details: other (purple discoloration) Medical Decision Making Medical Decision Making MDM Narrative: Patient is an 83-year-old female with history of Alzheimer's dementia, HTN, recurrent UTIs presenting to the emergency department from the [facility] after unwitnessed fall, patient found on the floor. On exam patient is awake, A+Ox3, VS WNL, afebrile, normal neurological exam without focal deficits, physical exam findings as above. Given reported symptoms and physical exam findings, initial differential includes ICH, skull fracture, cervical fracture, right shoulder strain or fracture, UTI. CT notable for no acute intracranial findings, chronic small-vessel ischemic disease and volume loss, no acute findings on C-spine. Right shoulder x-ray notable for no acute fracture, mineralization which may represent calcific tendinitis. My interpretation is in agreement with the radiologist's interpretation. Urine with 4+ bacteria, negative leukocytes or nitrites, 3-5 epithelials, likely contamination. Feel patient is stable for discharge back to [facility]. Differential Diagnosis Differential Diagnoses: The differential diagnosis associated with the presentation includes As per [facility]. Admission/Observation Consideration of admission/observation: Escalation of care including admission/observation considered Lab Data [facility] Lab Attestation statement: I reviewed the patient's lab results. As per [facility] Labs: Lab Results 06/08/23 Range/Units 07:32 Urine Color Yellow Urine Appearance Cloudy Urine pH 6.5 (5.0-9.0) Ur Specific [place] 1.010 (1.005-1.025) Urine Protein Trace (Neg-Trace) mg/dL Urine Glucose (UA) Negative (Negative) mg/dL Urine Ketones Negative (Negative) mg/dL Urine Blood Trace (Negative) Urine Nitrite Negative (Negative) Ur Leukocyte Esterase Negative (Negative) Urine RBC >20 H (0-2) /HPF Urine WBC 0-5 (0-5) /HPF Ur Squamous Epith Cells 3-5 (0-2) /HPF Other Crystals Present Urine Bacteria 4+ (None Seen) Hyaline Casts 0-2 (0-2) /LPF Independent Interpretation I performed an independent interpretation of an: Plain X-Ray and CT Scan Interpretation: No evidence of right shoulder fracture on x-ray No acute intracranial pathology or cervical spinal fracture Radiology Impression Discussion of test interpretation with radiology: I have reviewed the radiologist's reading. Radiologist Impression: XR/XR shoulder RT min 2V IMPRESSION: 1. No evidence of acute fracture or malalignment. 2. Ovoid focus of mineralization adjacent to the greater tuberosity may reflect calcific tendinosis. CT/CT head/brain wo IV con IMPRESSION: HEAD: No acute intracranial findings. Chronic small vessel ischemic disease and volume loss. CERVICAL SPINE: No acute findings identified. Chronic and postoperative changes as noted above. Independent Historian Clinical information obtained from an independent historian. History obtained from or confirmed by: EMS External Record Review External record reviewed: Inpatient record, Office record and Outpatient record Discharge Plan Discharge Clinical Impression: Unwitnessed fall Patient Disposition: [facility] Transfer Details: back to [facility] Additional Instructions: Mackenzie was evaluated in the emergency department after an unwitnessed fall. Her evaluation did not show evidence of conditions requiring emergency medical treatment at this time. She should return to the emergency department if she expserience worsening or uncontrolled pain, vision changes, recurrent vomiting, difficulty with normal activities, abnormal behavior, difficulty walking, numbness, weakness, or any other concerning symptoms. Prescriptions: No Action multivitamin Tablet 1 tab PO DAILY docusate sodium 100 mg Capsule 100 mg PO BID cholecalciferol (vitamin D3) 25 mcg (1,000 unit) Tablet 25 mcg PO DAILY ferrous sulfate 325 mg (65 mg iron) Tablet 325 mg PO DAILY sennosides [senna] 8.6 mg Tablet 8.6 mg PO DAILY PRN (Reason: Constipation) nitrofurantoin macrocrystal 50 mg Capsule 50 mg PO BEDTIME Rx Instructions: must administer with a meal/food acetaminophen 500 mg Tablet 1,000 mg PO Q6H PRN (Reason: Pain) Rx Instructions: not to exceed 8 tabs / 24 hrs ascorbic acid (vitamin C) [Vitamin C] 500 mg Tablet 500 mg PO DAILY metoprolol tartrate 50 mg Tablet 50 mg PO DAILY PRN (Reason: Tachycardia) polyethylene glycol 3350 17 gram Powder In Packet 17 g PO DAILY PRN (Reason: constipation) Qty: 30 0RF oxycodone 5 mg tablet 5 mg PO BEDTIME Qty: 3 0RF oxycodone 5 mg tablet 5 mg PO Q6H PRN (Reason: Breakthrough Pain) Qty: 12 0RF enoxaparin 40 mg/0.4 mL Syringe 40 mg subcut Q24H 25 Days Qty: 10 0RF amlodipine 5 mg tablet 5 mg PO DAILY omeprazole 20 mg capsule,delayed release(DR/EC) 20 mg PO DAILY@0630 gabapentin 100 mg capsule 100 mg PO TID metoprolol succinate 25 mg tablet extended release 24 hr 25 mg PO DAILY duloxetine 60 mg capsule,delayed release(DR/EC) 60 mg PO DAILY quetiapine 50 mg tablet 50 mg PO BEDTIME Myrbetriq 50 mg tablet extended release 24 hr 50 mg PO DAILY
[2023-06-08 07:37] LABS: Appearance Urine Cloudy; Color Urine Yellow; Glucose Urine UA Negative (Negative); Leukocyte Esterase Urine Negative (Negative); Nitrite Urine Negative (Negative); PH 6.5 (5.0-9.0); UMIC TRIGGER UACC YES; Urine Blood Trace (Negative); Urine Ketones Negative (Negative); Urine Protein Trace mg/dL (Neg-Trace)
[2023-06-08 07:47] LABS: Bacteria Urine 4+ (None Seen); Hyaline Casts Urine 0-2 /LPF (0-2); Other Crystals Urine Present; RBC Urine >20 /HPF (0-2); WBC Urine 0-5 /HPF (0-5)
[2023-06-08 10:00] VITALS: BP 134/76; PULSE 76; RESP 18; O2SAT 98
[2023-06-08 12:00] VITALS: BP 144/82; PULSE 77; RESP 18; O2SAT 95
== END 2023-06-08 14:07 ==
PROVIDERS: Registered Nurse Emergency; Emergency Provider Emergency Medicine
DX: M25.511 Pain in right shoulder (principal); Z91.81 History of falling; I10 Essential (primary) hypertension; G30.9 Alzheimer's disease, unspecified; F02.80 Dementia in other diseases classified elsewhere, unspecified severity, without behavioral disturbance, psychotic disturbance, mood disturbance, and anxiety; Z87.440 Personal history of urinary (tract) infections; Z87.891 Personal history of nicotine dependence; Z79.899 Other long term (current) drug therapy; Z79.01 Long term (current) use of anticoagulants; Z79.2 Long term (current) use of antibiotics
CPT/HCPCS: 51701; 70450; 72125; 73030; 81001; 93005; 99284; 99285

== ENCOUNTER → 2023-06-08 05:06 | Outpatient (BNV) | payer MEDICARE, SELFPAY | PROVIDERS: Emergency Provider Emergency Medicine; Visit Provider Internal Medicine Cardiovascular Disease | DX: I49.3 Ventricular premature depolarization (principal) | CPT/HCPCS: 93010 ==

== ENCOUNTER 2024-01-22 14:07 | Emergency (ER) | payer MEDICARE, SELFPAY ==
--- NOTE | ~2024-01-22 | XR_ITS ---
EXAMINATION: XR CHEST CLINICAL INFORMATION: Shortness of breath COMPARISON: 07/10/2022 TECHNIQUE: Frontal view of the chest was obtained. FINDINGS: Patient is status post hardware placement for correction of scoliosis in thoracic spine. Right lung is clear and well expanded. Left lung is partially opacified lateral limb questionably due to pleural thickening and there is blunting of left costophrenic angle. Cardiomediastinal silhouette is normal. XR/XR chest 1V IMPRESSION: Left pleural thickening and blunting of the left costophrenic angle. No evidence of pneumonia at this time.
[2024-01-22 14:17] VITALS: BP 111/47; BP 124/66; PULSE 88; PULSE 91; RESP 20; TEMP 36.9; O2SAT 90; O2SAT 96; BMI 25.5
[2024-01-22 14:27] VITALS: BP 111/47; PULSE 91; RESP 20; TEMP 36.9; O2SAT 96
--- NOTE | 2024-01-22 15:25 | ECG_ITS ---
Test Reason : LETHARGY Blood Pressure : / mmHG Vent. Rate : 101 BPM Atrial Rate : 101 BPM P-R Int : 204 ms QRS Dur : 080 ms QT Int : 340 ms P-R-T Axes : 001 -03 005 degrees QTc Int : 440 ms Sinus tachycardia Possible Inferior infarct , age undetermined Abnormal ECG When compared with ECG of 08-JUN-2023 05:06, Vent. rate has increased BY 35 BPM Referred By: Gloria Moseley Electronically Signed By:CHARLEY DENNIS MD
--- NOTE | 2024-01-22 15:56 | ED.GENADULT ---
HPI - General Adult General Chief complaint: Dyspnea Stated complaint: LETHARGIC,90% ON ROOM AIR FROM SNF Time Seen by Provider: 01/22/24 15:21 Source: family History of Present Illness ED Provider: Dr Moseley HPI narrative: 83-year-old female with history of dementia, chronic pain is brought in by her daughter for concerns regarding increased lethargy, decreased appetite as well as cough. Related Data Home Medications ?Medication ?Instructions ?Recorded ?Confirmed cholecalciferol (vitamin D3) 25 25 mcg PO DAILY 08/21/22 12/06/22 mcg (1,000 unit) tablet docusate sodium 100 mg capsule 100 mg PO BID 08/21/22 12/06/22 multivitamin 1 tab PO DAILY 08/21/22 12/06/22 ferrous sulfate 325 mg (65 mg 325 mg PO DAILY 10/09/22 12/06/22 iron) tablet amlodipine 5 mg tablet 5 mg PO DAILY 11/24/22 12/06/22 duloxetine 60 mg capsule,delayed 60 mg PO DAILY 11/24/22 12/06/22 release gabapentin 100 mg capsule 100 mg PO TID 11/24/22 12/06/22 metoprolol succinate 25 mg 25 mg PO DAILY 11/24/22 12/06/22 tablet,extended release 24 hr mirabegron 50 mg tablet,extended 50 mg PO DAILY 11/24/22 12/06/22 release 24 hr (Myrbetriq) omeprazole 20 mg capsule,delayed 20 mg PO DAILY@0630 11/24/22 12/06/22 release quetiapine 50 mg tablet 50 mg PO BEDTIME 11/24/22 12/06/22 acetaminophen 500 mg tablet 1,000 mg PO Q6H PRN Pain 12/06/22 12/06/22 ascorbic acid (vitamin C) 500 mg 500 mg PO DAILY 12/06/22 12/06/22 tablet (Vitamin C) metoprolol tartrate 50 mg tablet 50 mg PO DAILY PRN Tachycardia 12/06/22 12/06/22 nitrofurantoin macrocrystal 50 mg 50 mg PO BEDTIME 12/06/22 12/06/22 capsule sennosides 8.6 mg tablet (senna) 8.6 mg PO DAILY PRN Constipation 12/06/22 12/06/22 Previous Rx's ?Medication ?Instructions ?Recorded enoxaparin 40 mg/0.4 mL 40 mg (0.4 mL) subcut Q24H 25 days 12/12/22 subcutaneous syringe #10 mL oxycodone 5 mg tablet 5 mg PO BEDTIME #3 tabs 12/12/22 oxycodone 5 mg tablet 5 mg PO Q6H PRN Breakthrough Pain 12/12/22 #12 tabs polyethylene glycol 3350 17 gram 17 g PO DAILY PRN constipation #30 12/12/22 oral powder packet ea amoxicillin 875 mg-potassium 1 tab PO BID 7 days #14 tabs 01/22/24 clavulanate 125 mg tablet Allergies Allergy/AdvReac Type Severity Reaction Status Date / Time cefepime Allergy Unknown Verified 01/22/24 14:21 Review of Systems Review of Systems: Pertinent positives and negatives as stated in [facility] Past Medical History Source: nursing notes reviewed Medical History Bilateral flank pain Recurrent UTI Urge incontinence Alzheimer disease Squamous cell skin cancer Dementia Chronic back pain HTN (hypertension) Surgical History History of knee replacement H/O Spinal surgery H/O: hysterectomy Family History Family History Mother Breast cancer Social History Social History Household Members: None Housing: Assisted Living Facility Do you presently have visiting nurse or other home services: Yes ([facility] antibiotics via [facility]) Unable to assess alcohol history related to: Unknown Alcohol intake: never Comment: 1:1 sitter Patient Tobacco Use Status: Former Tobacco user Tobacco use type: Cigarette Smoked in Last 30 Days: No e-Cigarette/Vaping Use: Never Used Second Hand Smoke Exposure: No Use of substances other than those prescribed or required for medical reasons: No Advance Directives: Yes Advance Directives on File: Yes Advance Directives Date on File: 06/01/22 Do you have a plan to hurt others: No Plan service: No Current occupational status: retired Physical Exam ED Vital Signs: Vital Signs - 24 hr 01/22/24 14:17 01/22/24 14:27 01/22/24 17:28 Temperature 98.5 F 98.5 F Pulse Rate 91 91 109 H Respiratory Rate 20 20 16 Blood Pressure 111/47 L 111/47 L Pulse Oximetry 96 96 Oxygen Delivery Method Nasal Cannula Nasal Cannula 01/22/24 18:28 01/22/24 19:16 Temperature 99.4 F Pulse Rate 114 H 100 Respiratory Rate 28 H 20 Blood Pressure 129/81 130/62 Pulse Oximetry 93 92 Oxygen Delivery Method Room Air Room Air BMI result Body Mass Index 25.5 VITAL SIGNS: Reviewed. GENERAL: Chronically ill, in no acute distress. HEAD: Normocephalic/atraumatic EYES: PERRLA, EOMI EARS: Ext canals without abnormality NOSE: Nares patent bilateral OROPHARYNX: no oral lesions noted, posterior pharynx clear NECK: Supple, no adenopathy LUNGS: Normal breath sounds. No adventitious sounds or accessory muscle use. SpO2<96> CARDIOVASCULAR: Regular rate and rhythm without noted murmurs, no JVD or lower extremity edema. ABDOMEN: Soft, non-tender, non-distended with bowel sounds. MUSCULOSKELETAL: No tenderness, deformities, or effusions noted on gross inspection. EXTREMITIES: No cyanosis, clubbing or edema. SKIN: Inspection of the skin reveals no rashes NEUROLOGIC: Alert and oriented x 4. Strength and sensation to light touch were grossly intact x 4. Medications Administered Discontinued Medications Generic Name Dose Route Start Last Admin Trade Name Freq PRN Reason Stop Dose Admin Acetaminophen 975 mg 01/22/24 18:13 01/22/24 18:24 Acetaminophen 325 Mg Tablet PO 01/22/24 18:14 975 mg ONCE ONE Administration Albuterol/Ipratropium 3 ml 01/22/24 16:20 01/22/24 17:27 Albuterol/Iprat 2.5/0.5mg 3 Ml Ampul.Neb INHALE 01/22/24 16:21 3 ml ONCE ONE Administration Amoxicillin/Clavulanate Potassium 875 mg 01/22/24 18:13 01/22/24 18:24 Amoxicillin/Potassium Clav 875 Mg Tablet PO 01/22/24 18:14 875 mg ONCE ONE Administration Benzonatate 200 mg 01/22/24 18:01 01/22/24 18:24 Benzonatate 100 Mg Capsule PO 01/22/24 18:02 200 mg ONCE ONE Administration Oxycodone HCl 2.5 mg 01/22/24 17:20 01/22/24 18:25 Oxycodone Hcl Immed Release 5 Mg Tablet PO 01/22/24 17:21 2.5 mg ONCE ONE Administration Oxycodone HCl 2.5 mg 01/22/24 18:03 01/22/24 18:41 Oxycodone Hcl Immed Release 5 Mg Tablet PO 01/22/24 18:04 Not Given ONCE ONE Medical Decision Making Medical Decision Making [facility] Narrative: 83-year-old female with history and clinical presentation, DDX: Will rule out bacterial pneumonia, viral pneumonia, UTI EKG: Sinus tachycardia, HR-101, no STEMI, MI/QRS/QTC is within normal limits. I reviewed and interpreted all investigations and hematologic indices do not demonstrate a leukocytosis or thrombocytopenia but patient has a stable and chronic anemia. Coagulation studies are consistent with known use of chronic anticoagulation. Chemistry indices negative for JOSETTE/electrolyte or liver enzyme derangements. Urinalysis appears to be positive for UTI and chest x-ray with questionable infiltrate at the left base with the noted blunting. Patient also has cough. Viral testing negative for influenza/RSV/COVID-19. My interpretation is that patient has a pneumonia as well as the urinary tract infection, patient received Tessalon Perles for the cough, she is oxygenating well without supplemental oxygen, she received initial antibiotics that will cover both. Differential Diagnosis Differential Diagnoses: The differential diagnosis associated with the presentation includes Please see the discussion above Admission/Observation Consideration of admission/observation: Escalation of care including admission/observation considered Please see the discussion above Lab Data [facility] Lab Attestation statement: I reviewed the patient's lab results. Please see the discussion above 01/22/24 15:57 01/22/24 15:57 Labs: Lab Results 01/22/24 01/22/24 Range/Units 15:57 17:45 WBC 9.2 (4.8-10.8) X10*3/uL RBC 3.41 L (4.20-5.50) X10*6/uL Hgb 10.8 L (12.0-16.0) g/dl Hct 33.9 L (37.0-47.0) % MCV 99.4 H (80.0-98.0) fL MCH 31.7 (27.0-33.0) pg MCHC 31.9 (31.0-35.0) g/dl RDW 12.3 (11.0-16.0) % Plt Count 244 D (160-400) X10*3/uL MPV 9.0 L (9.4-12.3) fL Immature Gran % (Auto) 1.8 H (0.0-0.4) % Neut % (Auto) 67.8 (45-73) % Lymph % (Auto) 18.1 L (20-40) % [place] % (Auto) 10.4 (2-11) % Eos % (Auto) 1.6 (0-4) % Baso % (Auto) 0.3 (0-2) % Lymph # (Auto) 1.7 (1.2-4.9) X10*3/uL [place] # (Auto) 1.0 (0.1-1.2) X10*3/uL Eos # (Auto) 0.2 (0.0-0.4) X10*3/uL Baso # (Auto) 0.0 (0.0-0.2) X10*3/uL Abs Immat Gran (auto) 0.17 H (0.00-0.03) X10*3/uL Absolute Neuts (auto) 6.2 (2.0-8.3) x10*3/uL Absolute Nucleated RBC 0.000 (0.0-0.012) X10*3/uL Nucleated RBC % (auto) 0.0 (0.0-0.2) /100WBC PT 19.7 H (11.1-13.3) SEC INR 1.6 H (0.9-1.1) Sodium 140 (135-145) mmol/L Potassium 3.6 (3.3-5.1) mmol/L Chloride 104 (96-108) mmol/L Carbon Dioxide 27 (22-29) mmol/L Anion Gap 13 (12-20) BUN 20 H (9-16) mg/dL Creatinine 0.74 (0.5-1.4) mg/dL Estim Creat Clear Calc 57.4 Estimated GFR > 60 Random Glucose 114 (60-115) mg/dL Lactic Acid 0.9 (0.5-2.0) mmol/L Calcium 9.1 D (8.4-10.2) mg/dL Total Bilirubin 0.4 (0.0-1.0) mg/dL AST 13 (5-31) U/L ALT 8 (0-31) U/L Alkaline Phosphatase 91 (39-117) U/L Total Protein 6.6 (6.5-8.0) g/dL Albumin 3.6 (3.5-5.0) g/dL Urine Color Yellow Urine Appearance Clear Urine pH 5.5 (5.0-9.0) Ur Specific [place] 1.020 (1.005-1.025) Urine Protein 30 (1+) H (Neg-Trace) mg/dL Urine Glucose (UA) Negative (Negative) mg/dL Urine Ketones Negative (Negative) mg/dL Urine Blood Small (1+) H (Negative) Urine Nitrite Negative (Negative) Ur Leukocyte Esterase Small (1+) H (Negative) Urine RBC 6-10 H (0-2) /HPF Urine WBC 11-20 H (0-5) /HPF Ur Squamous Epith Cells 6-10 (0-2) /HPF Urine Bacteria 2+ (None Seen) Hyaline Casts 0-2 (0-2) /LPF Influenza Type A (PCR) NEGATIVE (Negative) Influenza Type B (PCR) NEGATIVE (Negative) RSV RNA Qual (PCR) NEGATIVE (Negative) SARS-CoV-2 RNA (RT-PCR) NEGATIVE (Negative) Independent Interpretation I performed an independent interpretation of an: EKG Interpretation: Please see the discussion above Radiology Impression Discussion of test interpretation with radiology: I have reviewed the radiologist's reading. Radiologist Impression: Please see the discussion above External Record Review External record reviewed: Outpatient record, Prior outpatient labs and Prior outpatient radiology Chronic Conditions Dementia Critical Care Time Critical Care Time Critical Care Time: Yes Total Critical Care Time: 30 Attestation: I personally attest to this time spent taking care of the patient. Discharge Plan Discharge Clinical Impression: Pneumonia, Acute UTI Patient Disposition: er [facility] Instructions: Urinary Tract Infection in Women (ED), Pneumonia (ED) Additional Instructions: 1. Resume all home medications as prescribed. 2. Complete entire course of antibiotics as prescribed. 3. Follow-up with your primary care doctor. Return to the ER for any worsening symptoms. Prescriptions: New amoxicillin-pot clavulanate 875-125 mg tablet 1 tab PO BID 7 Days Qty: 14 0RF No Action multivitamin Tablet 1 tab PO DAILY docusate sodium 100 mg Capsule 100 mg PO BID cholecalciferol (vitamin D3) 25 mcg (1,000 unit) Tablet 25 mcg PO DAILY ferrous sulfate 325 mg (65 mg iron) Tablet 325 mg PO DAILY sennosides [senna] 8.6 mg Tablet 8.6 mg PO DAILY PRN (Reason: Constipation) nitrofurantoin macrocrystal 50 mg Capsule 50 mg PO BEDTIME Rx Instructions: must administer with a meal/food acetaminophen 500 mg Tablet 1,000 mg PO Q6H PRN (Reason: Pain) Rx Instructions: not to exceed 8 tabs / 24 hrs ascorbic acid (vitamin C) [Vitamin C] 500 mg Tablet 500 mg PO DAILY metoprolol tartrate 50 mg Tablet 50 mg PO DAILY PRN (Reason: Tachycardia) polyethylene glycol 3350 17 gram Powder In Packet 17 g PO DAILY PRN (Reason: constipation) Qty: 30 0RF oxycodone 5 mg tablet 5 mg PO BEDTIME Qty: 3 0RF oxycodone 5 mg tablet 5 mg PO Q6H PRN (Reason: Breakthrough Pain) Qty: 12 0RF enoxaparin 40 mg/0.4 mL Syringe 40 mg subcut Q24H 25 Days Qty: 10 0RF amlodipine 5 mg tablet 5 mg PO DAILY omeprazole 20 mg capsule,delayed release(DR/EC) 20 mg PO DAILY@0630 gabapentin 100 mg capsule 100 mg PO TID metoprolol succinate 25 mg tablet extended release 24 hr 25 mg PO DAILY duloxetine 60 mg capsule,delayed release(DR/EC) 60 mg PO DAILY quetiapine 50 mg tablet 50 mg PO BEDTIME Myrbetriq 50 mg tablet extended release 24 hr 50 mg PO DAILY Print Language: American
[2024-01-22 16:04] LABS: MANUAL DIFF FLAG NO
[2024-01-22 16:09] LABS: Basophils Percent Auto 0.3 % (0-2); Eosinophils Absolute Auto 0.2 X10*3/uL (0.0-0.4); Eosinophils Percent Auto 1.6 % (0-4); Hematocrit 33.9 % (37.0-47.0); Hemoglobin 10.8 g/dl (12.0-16.0); Imm Gran Abs Auto 0.17 X10*3/uL (0.00-0.03); Imm Gran Pct Auto 1.8 % (0.0-0.4); Lymphocytes Absolute Auto 1.7 X10*3/uL (1.2-4.9); Lymphocytes Percent Auto 18.1 % (20-40); Mean Corpuscular HGB Conc 31.9 g/dl (31.0-35.0); Mean Corpuscular Hemoglobin 31.7 pg (27.0-33.0); Mean Corpuscular Volume 99.4 fL (80.0-98.0); Monocytes Percent Auto 10.4 % (2-11); Neutrophils Absolute Auto 6.2 x10*3/uL (2.0-8.3); Neutrophils Percent Auto 67.8 % (45-73); Platelet Count 244 X10*3/uL (160-400); Red Blood Count 3.41 X10*6/uL (4.20-5.50); Red Cell Distribution Width 12.3 % (11.0-16.0); White Blood Count 9.2 X10*3/uL (4.8-10.8)
[2024-01-22 16:16] LABS: INTERNATIONAL NORM RATIO 1.6 (0.9-1.1); Prothrombin Time 19.7 SEC (11.1-13.3)
[2024-01-22 16:17] LABS: Lactic Acid 0.9 mmol/L (0.5-2.0)
[2024-01-22 16:22] LABS: Alanine Aminotransferase 8 U/L (0-31); Albumin Level 3.6 g/dL (3.5-5.0); Alkaline Phosphatase 91 U/L (39-117); Anion Gap 13 (12-20); Aspartate Amino Transferase 13 U/L (5-31); Bilirubin Total 0.4 mg/dL (0.0-1.0); Blood Urea Nitrogen 20 mg/dL (9-16); Calcium 9.1 mg/dL (8.4-10.2); Carbon Dioxide 27 mmol/L (22-29); Chloride 104 mmol/L (96-108); Creatinine Clr Calc Pharmacy 57.4; Estimated Glomerular Filt Rate > 60; Glucose Random 114 mg/dL (60-115); Potassium 3.6 mmol/L (3.3-5.1); Sodium 140 mmol/L (135-145); Total Protein 6.6 g/dL (6.5-8.0)
[2024-01-22 16:42] LABS: Influenza A PCR NEGATIVE (Negative); Influenza B PCR NEGATIVE (Negative); Resp Syncy Virus RNA Qual PCR NEGATIVE (Negative); SARS COV2 PCR INHOUSE NEGATIVE (Negative)
--- NOTE | 2024-01-22 17:25 | PC.NURSE ---
Pt. refusing straight cath at this time. Provider aware
[2024-01-22] MEDS: Albuterol/Iprat 2.5/0.5MG 3 ML AMPUL.NEB INHALE (17:27)
[2024-01-22 17:28] VITALS: PULSE 109; RESP 16; O2SAT 92
[2024-01-22 17:56] LABS: Appearance Urine Clear; Color Urine Yellow; Glucose Urine UA Negative (Negative); Leukocyte Esterase Urine Small (1+) (Negative); Nitrite Urine Negative (Negative); PH 5.5 (5.0-9.0); UMIC TRIGGER UACC YES; Urine Blood Small (1+) (Negative); Urine Ketones Negative (Negative); Urine Protein 30 (1+) mg/dL (Neg-Trace)
[2024-01-22 18:08] LABS: Bacteria Urine 2+ (None Seen); Hyaline Casts Urine 0-2 /LPF (0-2); UACC Culture Trigger YES
[2024-01-22] MEDS: Acetaminophen 325 MG TABLET 975 MG PO (18:24)
[2024-01-22] MEDS: Amoxicillin/Potassium Clav 875 MG TABLET PO (18:24)
[2024-01-22] MEDS: Benzonatate 100 MG CAPSULE 200 MG PO (18:24)
[2024-01-22] MEDS: oxyCODONE HCl Immed Release 5 MG TABLET 2.5 MG PO (18:25)
[2024-01-22 18:28] VITALS: BP 129/81; PULSE 114; RESP 28; O2SAT 93
[2024-01-22 19:16] VITALS: BP 130/62; PULSE 100; RESP 20; TEMP 37.4; O2SAT 92
[2024-01-22 19:47] VITALS: BP 130/62; PULSE 100; RESP 20; TEMP 37.4; O2SAT 92
== END 2024-01-22 20:22 | disposition skilled nursing facility (03) ==
PROVIDERS: Emergency Provider Student in an Organized Health Care Education/Training Program
DX: J18.9 Pneumonia, unspecified organism (principal); N39.0 Urinary tract infection, site not specified; B96.20 Unspecified Escherichia coli [E. coli] as the cause of diseases classified elsewhere; R53.83 Other fatigue; R05.9 Cough, unspecified; Z03.818 Encounter for observation for suspected exposure to other biological agents ruled out; Z79.01 Long term (current) use of anticoagulants; Z79.899 Other long term (current) drug therapy; I10 Essential (primary) hypertension; G30.9 Alzheimer's disease, unspecified; F02.80 Dementia in other diseases classified elsewhere, unspecified severity, without behavioral disturbance, psychotic disturbance, mood disturbance, and anxiety; Z87.891 Personal history of nicotine dependence
CPT/HCPCS: 0241U; 36415; 71045; 80053; 81001; 83605; 85025; 85610; 87040; 87086; 87088; 87186; 93005; 94640; 99284; 99285

== ENCOUNTER → 2024-01-22 15:25 | Outpatient (BNV) | payer MEDICARE, SELFPAY | PROVIDERS: Emergency Provider Student in an Organized Health Care Education/Training Program; Visit Provider Internal Medicine Cardiovascular Disease | DX: R94.31 Abnormal electrocardiogram [ECG] [EKG] (principal) | CPT/HCPCS: 93010 ==

== ENCOUNTER 2024-03-14 08:15 | Emergency (ER) | payer MEDICARE, SELFPAY ==
--- NOTE | ~2024-03-14 | CT_ITS ---
EXAMINATION: CT HEAD WITHOUT CONTRAST CLINICAL INFORMATION: Fall. On blood thinners. COMPARISON: CT head June 2023 TECHNIQUE: Contiguous axial imaging was performed from the skull base to vertex without intravenous administration of contrast. This CT examination was performed using dose optimization techniques as appropriate, variously including the following: *Automated exposure control *Adjustment of mA and/or kV according to patient size (this includes techniques or standardized protocols for targeted exams where dose is matched to indication/reason for exam; i.e. extremities or head) *Use of iterative reconstruction technique DLP: 725 mGy-cm FINDINGS: There is no mass hemorrhage or cerebral edema. Subtle prominence of the ventricles commensurate with that of the sulci and basilar cisterns. No extra-axial fluid collections. Periventricular white matter changes compatible with chronic small vessel ischemic disease. No change. Soft tissue/scalp: There is ill-defined soft tissue fullness over the right superior lateral orbit compatible with a soft tissue contusion. This is new compared to prior. Bone/calvarium: Intact. No fracture. Sinuses: Mucosal thickening in the ethmoid sinuses. Mastoid air cells: Normal. CT/CT head/brain wo IV con IMPRESSION: 1. No acute intracranial pathology. 2. Soft tissue contusion over the right superior lateral orbit. Electronically signed by: Gokul Montez MD 03/14/2024 09:58 AM EDT
--- NOTE | ~2024-03-14 | CT_ITS ---
EXAMINATION: CT CERVICAL SPINE WITHOUT CONTRAST CLINICAL INFORMATION: Fall. Positive head strike. On blood thinners. COMPARISON: CT of the cervical spine June 2023 TECHNIQUE: CT scan of the cervical spine was performed with reconstruction imaging performed at the acquisition workstation. This CT examination was performed using dose optimization techniques as appropriate, variously including the following: *Automated exposure control *Adjustment of mA and/or kV according to patient size (this includes techniques or standardized protocols for targeted exams where dose is matched to indication/reason for exam; i.e. extremities or head) *Use of iterative reconstruction technique DLP: 268 mGy-cm FINDINGS: Vertebral bodies are normally aligned with normal height. Postsurgical changes related to cervical fusion at the C6-C7 level unchanged. Multilevel degenerative disc changes noted throughout the cervical spine are unchanged. Bilateral facet arthrosis also noted. Fusion of the left C3-C4 facet unchanged. Partially visualized hardware in the upper thoracic spine noted otherwise unremarkable. Surrounding soft tissues are unremarkable. Lung apices clear. CT/CT cervical spine wo IV con IMPRESSION: 1. No acute abnormality. 2. Multilevel spondylosis of the cervical spine unchanged compared with June 2023. Fleischner guidelines were followed. Electronically signed by: Gokul Montez MD 03/14/2024 10:09 AM EDT
[2024-03-14 08:20] VITALS: BP 179/80; PULSE 84; O2SAT 96
[2024-03-14 08:22] VITALS: BP 190/76; PULSE 68; RESP 18; TEMP 36.6; O2SAT 95; BMI 25.7
--- NOTE | 2024-03-14 08:57 | ED_ITS ---
HPI - Fall General Chief Complaint: Fall Stated Complaint: FALL W/HEADSTRIKE PER EMS Time Seen by Provider: 03/14/24 08:47 Source: patient, EMS, RN notes reviewed and old records reviewed Mode of arrival: EMS Limitations: no limitations History of Present Illness ED Provider: CORA GIRON PA-C HPI Narrative: 83 year old female with pmhx significant for dementia, HTN presents to the ED via EMS from [facility] for evaluation following a witnessed mechanical trip and fall [employer]. Staff reports patient tripped, fell forward and hit the left side of her head on the ground. No LOC. She is anticoagulated on Eliquis. Patient tells me she recalls the fall. Denies any preceding symptoms of headache, dizziness, vision changes, chest pain, sob, etc. At present she endorses headache and neck pain that began have cervical collar was placed. Denies any other physical concerns. Related Data Home Medications ?Medication ?Instructions ?Recorded ?Confirmed cholecalciferol (vitamin D3) 25 25 mcg PO DAILY 08/21/22 12/06/22 mcg (1,000 unit) tablet docusate sodium 100 mg capsule 100 mg PO BID 08/21/22 12/06/22 multivitamin 1 tab PO DAILY 08/21/22 12/06/22 ferrous sulfate 325 mg (65 mg 325 mg PO DAILY 10/09/22 12/06/22 iron) tablet amlodipine 5 mg tablet 5 mg PO DAILY 11/24/22 12/06/22 duloxetine 60 mg capsule,delayed 60 mg PO DAILY 11/24/22 12/06/22 release gabapentin 100 mg capsule 100 mg PO TID 11/24/22 12/06/22 metoprolol succinate 25 mg 25 mg PO DAILY 11/24/22 12/06/22 tablet,extended release 24 hr mirabegron 50 mg tablet,extended 50 mg PO DAILY 11/24/22 12/06/22 release 24 hr (Myrbetriq) omeprazole 20 mg capsule,delayed 20 mg PO DAILY@0630 11/24/22 12/06/22 release quetiapine 50 mg tablet 50 mg PO BEDTIME 11/24/22 12/06/22 acetaminophen 500 mg tablet 1,000 mg PO Q6H PRN Pain 12/06/22 12/06/22 ascorbic acid (vitamin C) 500 mg 500 mg PO DAILY 12/06/22 12/06/22 tablet (Vitamin C) metoprolol tartrate 50 mg tablet 50 mg PO DAILY PRN Tachycardia 12/06/22 12/06/22 nitrofurantoin macrocrystal 50 mg 50 mg PO BEDTIME 12/06/22 12/06/22 capsule sennosides 8.6 mg tablet (senna) 8.6 mg PO DAILY PRN Constipation 12/06/22 12/06/22 Previous Rx's ?Medication ?Instructions ?Recorded enoxaparin 40 mg/0.4 mL 40 mg (0.4 mL) subcut Q24H 25 days 12/12/22 subcutaneous syringe #10 mL oxycodone 5 mg tablet 5 mg PO BEDTIME #3 tabs 12/12/22 oxycodone 5 mg tablet 5 mg PO Q6H PRN Breakthrough Pain 12/12/22 #12 tabs polyethylene glycol 3350 17 gram 17 g PO DAILY PRN constipation #30 12/12/22 oral powder packet ea amoxicillin 875 mg-potassium 1 tab PO BID 7 days #14 tabs 01/22/24 clavulanate 125 mg tablet Allergies Allergy/AdvReac Type Severity Reaction Status Date / Time cefepime Allergy Unknown Verified 03/14/24 08:25 Review of Systems 2 Review of Systems: Yes all other systems are reviewed and are negative PMFSH Past Medical History Attestation statement: The following information was validated with the patient. 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 via [facility]) Unable to assess alcohol history related to: Unknown Alcohol intake: never Comment: 1:1 sitter Patient Tobacco Use Status: Former Tobacco user Tobacco use type: Cigarette Smoked in Last 30 Days: No e-Cigarette/Vaping Use: Never Used Second Hand Smoke Exposure: No Use of substances other than those prescribed or required for medical reasons: No Advance Directives: Yes Advance Directives on File: Yes Advance Directives Date on File: 06/01/22 Do you have a plan to hurt others: No Plan service: No Current occupational status: retired Physical Exam 2 Vital Signs: Vital Signs: Last Vital Signs Temp 98 F 03/14/24 12:41 Pulse 76 03/14/24 12:41 Resp 18 03/14/24 12:41 BP 168/76 H 03/14/24 12:41 Pulse Ox 98 03/14/24 12:41 O2 Del Method Room Air 03/14/24 10:10 BMI result Body Mass Index 25.7 Hypertensive, vitals otherwise wnl. General: Well appearing, in no acute distress. Skin: Warm, dry, intact. No rashes or lesions. Head: ecchymosis noted to left periorbital region. no palpable skull fracture or hematoma. no racoon eyes. no battles sign. EENT: Hearing is intact b/l. Conjunctiva clear. PERRLA. EOM intact without entrapment or pain. Moist mucous membranes.? Neck: Supple without LAD. FROM. No cervical midline spinous tenderness or step off deformity Cardiac: Chest wall symmetric. RRR. Lungs: Normal respiratory effort without accessory muscle use. CTA bilaterally. Abdomen: Soft, non-tender, non-distended. No abdominal bruising. Back: No midline spinous or paraspinal tenderness. No step off deformity. Ext: Upper and lower extremities atraumatic, without tenderness, deformity, swelling or erythema. Full ROM throughout. Pulses 2+ equal and bilateral. Neuro: AOx2. Normal speech. Strength 5/5 intact throughout. Sensation intact to light touch. NV intact distally. Ambulating with steady gait. Psych: Appropriate mood and affect Course Course Course Narrative: 1058 -- CBC with chronic normocytic anemia, stable when compared to priors. no leukocytosis or left shift. chemistry without acute electrolyte abnormality requiring intervention. CT head/brain without acute bleed or skull fracture. There is a soft tissue contusion noted over right superior lateral orbit, consistent w/ exam findings. CT cervical spine without acute fracture. Patient's cervical collar was removed. On further eval, there is no midline spinous tenderness or step off deformity, FROM intact to c spine. > patient's friend is now at bedside who states patient appears at her baseline. > Patient has remained stable throughout ED visit today. Discussed worrisome signs and symptoms and when to return to the ED. All questions answered at this time. Patient is agreeable with disposition and stable for discharge back to SNF. Medical Decision Making Medical Decision Making [facility] Narrative: 83 year old female with pmhx significant for dementia, HTN presents to the ED via EMS from [facility] for evaluation following a witnessed mechanical trip and fall [employer]. Patient hypertensive to 168/76, vitals otherwise wnl. On exam, there is ecchymosis noted to left lateral periorbital region. no palpable skull fracture or hematoma. no racoon eyes. no battles sign. PERRLA, EOMs intact without entrapment. no septal hematoma. AOX2 which is her baseline. skin w/d/i. Differential diagnosis includes closed head injury, concussion, traumatic intracranial bleed Plan for imaging, basic labs, and re-evaluation. Differential Diagnosis Differential Diagnoses: The differential diagnosis associated with the presentation includes as above Admission/Observation not indicated. Lab Data [facility] Lab Attestation statement: I reviewed the patient's lab results. as above. 03/14/24 09:16 03/14/24 09:16 Labs: Lab Results 03/14/24 Range/Units 09:16 WBC 4.7 L (4.8-10.8) X10*3/uL RBC 3.39 L (4.20-5.50) X10*6/uL Hgb 10.7 L (12.0-16.0) g/dl Hct 32.8 L (37.0-47.0) % MCV 96.8 (80.0-98.0) fL MCH 31.6 (27.0-33.0) pg MCHC 32.6 (31.0-35.0) g/dl RDW 13.2 (11.0-16.0) % Plt Count 201 (160-400) X10*3/uL MPV 8.9 L (9.4-12.3) fL Immature Gran % (Auto) 0.4 (0.0-0.4) % Neut % (Auto) 57.3 (45-73) % Lymph % (Auto) 29.0 (20-40) % [place] % (Auto) 6.8 (2-11) % Eos % (Auto) 5.9 H (0-4) % Baso % (Auto) 0.6 (0-2) % Lymph # (Auto) 1.4 (1.2-4.9) X10*3/uL [place] # (Auto) 0.3 (0.1-1.2) X10*3/uL Eos # (Auto) 0.3 (0.0-0.4) X10*3/uL Baso # (Auto) 0.0 (0.0-0.2) X10*3/uL Abs Immat Gran (auto) 0.02 (0.00-0.03) X10*3/uL Absolute Neuts (auto) 2.7 (2.0-8.3) x10*3/uL Absolute Nucleated RBC 0.000 (0.0-0.012) X10*3/uL Nucleated RBC % (auto) 0.0 (0.0-0.2) /100WBC PT 15.5 H D (11.1-13.3) SEC INR 1.3 H (0.9-1.1) Sodium 143 (135-145) mmol/L Potassium 3.7 (3.3-5.1) mmol/L Chloride 111 H (96-108) mmol/L Carbon Dioxide 25 (22-29) mmol/L Anion Gap 11 L (12-20) BUN 14 (9-16) mg/dL Creatinine 0.59 (0.5-1.4) mg/dL Estim Creat Clear Calc 72.2 Estimated GFR > 60 Random Glucose 102 (60-115) mg/dL Calcium 8.9 (8.4-10.2) mg/dL Total Bilirubin 0.3 (0.0-1.0) mg/dL AST 16 (5-31) U/L ALT 11 (0-31) U/L Alkaline Phosphatase 71 (39-117) U/L Total Protein 6.2 L (6.5-8.0) g/dL Albumin 3.6 (3.5-5.0) g/dL Independent Interpretation I performed an independent interpretation of an: CT Scan Interpretation: CT head/brain without intracranial bleed, agree with radiologist's interpretation. CT cervical spine without subluxation or fracture, agree with radiologist's interpretation. Radiology Impression Discussion of test interpretation with radiology: I have reviewed the radiologist's reading. Radiologist Impression: EXAMINATION: CT HEAD WITHOUT CONTRAST CLINICAL INFORMATION: Fall. On blood thinners. COMPARISON: CT head June 2023 TECHNIQUE: Contiguous axial imaging was performed from the skull base to vertex without intravenous administration of contrast. This CT examination was performed using dose optimization techniques as appropriate, variously including the following: *Automated exposure control *Adjustment of mA and/or kV according to patient size (this includes techniques or standardized protocols for targeted exams where dose is matched to indication/reason for exam; i.e. extremities or head) *Use of iterative reconstruction technique DLP: 725 mGy-cm FINDINGS: There is no mass hemorrhage or cerebral edema. Subtle prominence of the ventricles commensurate with that of the sulci and basilar cisterns. No extra-axial fluid collections. Periventricular white matter changes compatible with chronic small vessel ischemic disease. No change. Soft tissue/scalp: There is ill-defined soft tissue fullness over the right superior lateral orbit compatible with a soft tissue contusion. This is new compared to prior. Bone/calvarium: Intact. No fracture. Sinuses: Mucosal thickening in the ethmoid sinuses. Mastoid air cells: Normal. CT/CT head/brain wo IV con IMPRESSION: 1. No acute intracranial pathology. 2. Soft tissue contusion over the right superior lateral orbit. Electronically signed by: Gokul Montez MD 03/14/2024 09:58 AM EDT EXAMINATION: CT CERVICAL SPINE WITHOUT CONTRAST CLINICAL INFORMATION: Fall. Positive head strike. On blood thinners. COMPARISON: CT of the cervical spine June 2023 TECHNIQUE: CT scan of the cervical spine was performed with reconstruction imaging performed at the acquisition workstation. This CT examination was performed using dose optimization techniques as appropriate, variously including the following: *Automated exposure control *Adjustment of mA and/or kV according to patient size (this includes techniques or standardized protocols for targeted exams where dose is matched to indication/reason for exam; i.e. extremities or head) *Use of iterative reconstruction technique DLP: 268 mGy-cm FINDINGS: Vertebral bodies are normally aligned with normal height. Postsurgical changes related to cervical fusion at the C6-C7 level unchanged. Multilevel degenerative disc changes noted throughout the cervical spine are unchanged. Bilateral facet arthrosis also noted. Fusion of the left C3-C4 facet unchanged. Partially visualized hardware in the upper thoracic spine noted otherwise unremarkable. Surrounding soft tissues are unremarkable. Lung apices clear. CT/CT cervical spine wo IV con IMPRESSION: 1. No acute abnormality. 2. Multilevel spondylosis of the cervical spine unchanged compared with June 2023. Fleischner guidelines were followed. Electronically signed by: Gokul Montez MD 03/14/2024 10:09 AM EDT RP Independent Historian Clinical information obtained from an independent historian. History obtained from or confirmed by: EMS Discharge Plan Discharge Clinical Impression: Contusion of soft tissue, Fall as cause of accidental injury in residential institution as place of occurrence, Head injury Patient Disposition: er [facility] Transfer Details: [facility] Instructions: Fall Prevention for Older Adults (ED), Head Injury (ED), Fall Prevention (ED) Additional Instructions: You were evaluated in the ED today following a trip and fall. The CT scans of your head and neck are normal. There is no intracranial bleed. You have bruising noted to your left eye. Please apply ice to the area. You may also take Tylenol as needed for pain/ discomfort. Return to the ED with new or worsening symptoms such as worsening confusion, behavioral changes, intractable vomiting, etc. In the case of an emergency call 911 Prescriptions: No Action multivitamin Tablet 1 tab PO DAILY docusate sodium 100 mg Capsule 100 mg PO BID cholecalciferol (vitamin D3) 25 mcg (1,000 unit) Tablet 25 mcg PO DAILY ferrous sulfate 325 mg (65 mg iron) Tablet 325 mg PO DAILY sennosides [senna] 8.6 mg Tablet 8.6 mg PO DAILY PRN (Reason: Constipation) nitrofurantoin macrocrystal 50 mg Capsule 50 mg PO BEDTIME Rx Instructions: must administer with a meal/food acetaminophen 500 mg Tablet 1,000 mg PO Q6H PRN (Reason: Pain) Rx Instructions: not to exceed 8 tabs / 24 hrs ascorbic acid (vitamin C) [Vitamin C] 500 mg Tablet 500 mg PO DAILY metoprolol tartrate 50 mg Tablet 50 mg PO DAILY PRN (Reason: Tachycardia) polyethylene glycol 3350 17 gram Powder In Packet 17 g PO DAILY PRN (Reason: constipation) Qty: 30 0RF oxycodone 5 mg tablet 5 mg PO BEDTIME Qty: 3 0RF oxycodone 5 mg tablet 5 mg PO Q6H PRN (Reason: Breakthrough Pain) Qty: 12 0RF enoxaparin 40 mg/0.4 mL Syringe 40 mg subcut Q24H 25 Days Qty: 10 0RF amlodipine 5 mg tablet 5 mg PO DAILY omeprazole 20 mg capsule,delayed release(DR/EC) 20 mg PO DAILY@0630 gabapentin 100 mg capsule 100 mg PO TID metoprolol succinate 25 mg tablet extended release 24 hr 25 mg PO DAILY duloxetine 60 mg capsule,delayed release(DR/EC) 60 mg PO DAILY quetiapine 50 mg tablet 50 mg PO BEDTIME Myrbetriq 50 mg tablet extended release 24 hr 50 mg PO DAILY amoxicillin-pot clavulanate 875-125 mg tablet 1 tab PO BID 7 Days Qty: 14 0RF Referrals: Lamonte Holguin MD [Physician] - Interventions: ED Discharge Assessment Last Done: 03/14/24 12:41 Discharge Date/Time: 03/14/24 12:43 Print Language: Chadian
[2024-03-14 09:20] LABS: MANUAL DIFF FLAG NO
--- NOTE | 2024-03-14 09:22 | PC.NURSE ---
ct complete, collar in place, labs drawn, confused and at baseline, skin wpd, bruise above l eye, no obvious signs of bleeding on head ct but awaiting radiology report, family at bedside, pt calm and resting quietly
[2024-03-14 09:27] LABS: INTERNATIONAL NORM RATIO 1.3 (0.9-1.1); Prothrombin Time 15.5 SEC (11.1-13.3)
[2024-03-14 09:29] LABS: Basophils Percent Auto 0.6 % (0-2); Eosinophils Absolute Auto 0.3 X10*3/uL (0.0-0.4); Eosinophils Percent Auto 5.9 % (0-4); Hematocrit 32.8 % (37.0-47.0); Hemoglobin 10.7 g/dl (12.0-16.0); Imm Gran Abs Auto 0.02 X10*3/uL (0.00-0.03); Imm Gran Pct Auto 0.4 % (0.0-0.4); Lymphocytes Absolute Auto 1.4 X10*3/uL (1.2-4.9); Mean Corpuscular HGB Conc 32.6 g/dl (31.0-35.0); Mean Corpuscular Hemoglobin 31.6 pg (27.0-33.0); Mean Corpuscular Volume 96.8 fL (80.0-98.0); Mean Platelet Volume 8.9 fL (9.4-12.3); Monocytes Absolute Auto 0.3 X10*3/uL (0.1-1.2); Monocytes Percent Auto 6.8 % (2-11); Neutrophils Absolute Auto 2.7 x10*3/uL (2.0-8.3); Neutrophils Percent Auto 57.3 % (45-73); Platelet Count 201 X10*3/uL (160-400); Red Blood Count 3.39 X10*6/uL (4.20-5.50); Red Cell Distribution Width 13.2 % (11.0-16.0); White Blood Count 4.7 X10*3/uL (4.8-10.8)
[2024-03-14 09:39] LABS: Alanine Aminotransferase 11 U/L (0-31); Albumin Level 3.6 g/dL (3.5-5.0); Alkaline Phosphatase 71 U/L (39-117); Anion Gap 11 (12-20); Aspartate Amino Transferase 16 U/L (5-31); Bilirubin Total 0.3 mg/dL (0.0-1.0); Blood Urea Nitrogen 14 mg/dL (9-16); Calcium 8.9 mg/dL (8.4-10.2); Carbon Dioxide 25 mmol/L (22-29); Chloride 111 mmol/L (96-108); Creatinine Clr Calc Pharmacy 72.2; Estimated Glomerular Filt Rate > 60; Glucose Random 102 mg/dL (60-115); Potassium 3.7 mmol/L (3.3-5.1); Sodium 143 mmol/L (135-145); Total Protein 6.2 g/dL (6.5-8.0)
[2024-03-14 10:10] VITALS: BP 186/83; PULSE 66; RESP 17; TEMP 36.8; O2SAT 97
[2024-03-14 12:41] VITALS: BP 168/76; PULSE 76; RESP 18; TEMP 36.6; O2SAT 98
== END 2024-03-14 12:43 ==
PROVIDERS: Physician Assistant Medical; Emergency Provider Emergency Medicine Emergency Medical Services
DX: S00.12XA Contusion of left eyelid and periocular area, initial encounter (principal); S09.90XA Unspecified injury of head, initial encounter; W01.0XXA Fall on same level from slipping, tripping and stumbling without subsequent striking against object, initial encounter; I10 Essential (primary) hypertension; G30.9 Alzheimer's disease, unspecified; F02.80 Dementia in other diseases classified elsewhere, unspecified severity, without behavioral disturbance, psychotic disturbance, mood disturbance, and anxiety; Z87.440 Personal history of urinary (tract) infections; Z86.73 Personal history of transient ischemic attack (TIA), and cerebral infarction without residual deficits; Z79.899 Other long term (current) drug therapy; Z79.01 Long term (current) use of anticoagulants; Y93.89 Activity, other specified; Y92.099 Unspecified place in other non-institutional residence as the place of occurrence of the external cause; Y99.9 Unspecified external cause status
CPT/HCPCS: 36415; 70450; 72125; 80053; 85025; 85610; 99284